=== PATIENT | male | born 1970 | race Caucasian/White ===

== ENCOUNTER 2017-10-14 18:41 | Inpatient (IN) | payer OTHER ==
[~2017-10-14] VITALS: Ht 172.7 cm; Wt 215.4 kg
[2017-10-14] MEDS: FUROSEMIDE 40 MG INJ IV STA ×2 (19:44→23:21)
[2017-10-14] MEDS ORDERED: NITROGLYCERIN (SL) 0.4 MG TAB SL PRN ×2 (20:00→21:30)
[2017-10-14 20:05] LABS: BASOPHIL # 0.1 10^3/ul (0.0-0.1); BASOPHILS % 0.5 % (0.0-2.0); EOSINOPHILS # 0.4 10^3/ul (0.0-0.5); EOSINOPHILS % 3.9 % (0.0-7.0); HEMATOCRIT 43.5 % (42.0-52.0); HEMOGLOBIN 13.2 g/dl (14.0-18.0); LYMPHOCYTES # 1.6 10^3/ul (0.8-2.9); LYMPHOCYTES % 17.4 % (15.0-51.0); MEAN CORPUSCULAR HEMOGLOBIN 24.7 pg (29.0-33.0); MEAN CORPUSCULAR HGB CONC 30.3 g/dl (32.0-37.0); MEAN CORPUSCULAR VOLUME 81.3 fl (82.0-101.0); MEAN PLATELET VOLUME 8.9 fl (7.4-10.4); MONOCYTE # 0.9 10^3/ul (0.3-0.9); MONOCYTES % 9.3 % (0.0-11.0); NEUTROPHIL # 6.4 10^3/ul (1.6-7.5); NEUTROPHILS % 67.8 % (39.0-77.0); PLATELET COUNT 334 10^3/UL (140-415); RED BLOOD COUNT 5.35 10^6/ul (4.70-6.10); RED CELL DISTRIBUTION WIDTH 19.6 % (11.5-14.5); WHITE BLOOD COUNT 9.4 10^3/ul (4.8-10.8)
[2017-10-14 20:19] LABS: ANION GAP 12 (8-16); BLOOD UREA NITROGEN 12 mg/dl (7-20); CALCIUM 8.8 mg/dl (8.4-10.2); CARBON DIOXIDE 33 mmol/L (21-31); CHLORIDE 100 mmol/L (97-110); CREATININE 0.96 mg/dl (0.61-1.24); GLUCOSE 153 mg/dl (70-220); POTASSIUM 3.9 mmol/L (3.5-5.1); SODIUM 141 mmol/L (135-144)
[2017-10-14 20:21] LABS: INR 1.04; PROTIME 13.6 Sec (12.2-14.2); PT RATIO 1.1
[2017-10-14 20:22] LABS: PARTIAL THROMBOPLASTIN TIME 34.3 Sec (25.0-35.0)
[2017-10-14 20:30] LABS: TROPONIN-I < 0.012 ng/ml (0.00-0.12)
[2017-10-14] MEDS: NITROGLYCERIN 2% 1 GM OINT PKT TD STA ×2 (20:30→23:21)
[2017-10-14] MEDS ORDERED: ACETAMINOPHEN 325 MG TAB PO PRN (21:00)
[2017-10-14] MEDS ORDERED: ONDANSETRON 4 MG INJ IV PRN (21:00)
--- NOTE | 2017-10-14 21:08 | RADRPT ---
PROCEDURE: XR Chest. CLINICAL INDICATION: Chest pain. TECHNIQUE: Single frontal chest x-ray. COMPARISON: None available. FINDINGS: The lungs volumes are diminished. There are compressive changes with vascular crowding and basilar atelectasis. No pneumothorax, pleural effusion or consolidation is noted. The cardiomediastinal si lhouette is unremarkable. The base of the heart is elevated due to low lung volumes. No acute os seous abnormality is noted. IMPRESSION: 1. Low lung volumes with compressive changes and basilar atelectasis. 2. Otherwise, no acute cardiopulmonary abnormality. RPTAT: HH .Josue Nunez MD, Date Time Electronically viewed and signed by .Josue Nunez MD, on 10/14/2017 21:08 .N/
[2017-10-14] MEDS ORDERED: NACL 0.9% 3 ML SYG IV SCH (21:30)
--- NOTE | 2017-10-14 22:07 | ERD ---
ER Documentation Chief Complaint Chief Complaint CP with SOB and dizziness started 1 ago, pt has hx of CT HPI Patient is a 47-year-old male with cardiac disease who presents with bilateral feet swelling. He went to his primary doctor at [facility] clinic who told him to go to the emergency department. He has shortness of breath. He had near syncope as well. Supposedly his oxygen was 86% in the office. He uses oxygen at home but not continuously. He admits to a cough. He has had chest pain. He said that this started a few weeks ago but is gotten worse. He lives alone. Upon review of old medical records this is the patient's first visit to the emergency department. ROS All systems reviewed and are negative except as per history of present illness. Allergies Allergies: Coded Allergies: No Known Allergy (Unverified , 10/14/17) PMhx/Soc Positive for coronary disease and obesity FmHx Family History: coronary disease Physical Exam Vitals Vital Signs Date Time Temp Pulse Resp B/P Pulse Ox O2 Delivery O2 Flow Rate FiO2 10/14/17 18:54 98.2 114 32 144/81 91 Physical Exam Const: Moderate distress Head: Atraumatic Eyes: Normal Conjunctiva ENT: Normal External Ears, Nose and Mouth. Neck: Full range of motion..~ No meningismus. Resp: Clear to auscultation bilaterally Cardio: Regular rate and rhythm, no murmurs Abd: Severe obesity Skin: Chronic skin changes to the lower extremities bilaterally Back: No midline or flank tenderness Ext: 2+ pitting edema bilateral lower extremities Neur: Awake and alert Psych: Normal Mood and Affect Result Diagram: 10/14/17195510/14/171955 Results 24 hrs Laboratory Tests Test 10/14/17 19:56 White Blood Count 9.410^3/ul Red Blood Count 5.3510^6/ul Hemoglobin 13.2g/dl Hematocrit 43.5% Mean Corpuscular Volume 81.3fl Mean Corpuscular Hemoglobin 24.7pg Mean Corpuscular Hemoglobin Concent 30.3g/dl Red Cell Distribution Width 19.6% Platelet Count 09075^3/UL Mean Platelet Volume 8.9fl Neutrophils % 67.8% Lymphocytes % 17.4% Monocytes % 9.3% Eosinophils % 3.9% Basophils % 0.5% Nucleated Red Blood Cells % 0.0/100WBC Neutrophils # 6.410^3/ul Lymphocytes # 1.610^3/ul Monocytes # 0.910^3/ul Eosinophils # 0.410^3/ul Basophils # 0.110^3/ul Nucleated Red Blood Cells # 0.010^3/ul Prothrombin Time 13.6Sec Prothrombin Time Ratio 1.1 INR International Normalized Ratio 1.04 Activated Partial Thromboplast Time 34.3Sec Sodium Level 141mmol/L Potassium Level 3.9mmol/L Chloride Level 100mmol/L Carbon Dioxide Level 33mmol/L Anion Gap 12 Blood Urea Nitrogen 12mg/dl Creatinine 0.96mg/dl Glucose Level 153mg/dl Calcium Level 8.8mg/dl Troponin I < 0.012ng/ml Current Medications Medications (Trade) Dose Ordered Sig/Jonas Route PRN Reason Start Time Stop Time Status Last Admin Dose Admin Aspirin (Aspirin) 162 mg ONCE STAT PO 10/14/17 19:44 10/14/17 19:45 DC Nitroglycerin (Nitroglycerin 2% Oint) 1 inch ONCE STAT TD 10/14/17 19:44 10/14/17 19:45 DC Nitroglycerin (Nitroglycerin (Sl Tab) 0.4 Mg) 1 tab Q5M UP TO 3 DOSES PRN SL CHEST PAIN 10/14/17 20:00 Furosemide (Lasix) 40 mg ONCE STAT IV 10/14/17 19:44 10/14/17 19:45 DC Ondansetron HCl (Zofran Inj) 4 mg ER BRIDGE PRN IV NAUSEA AND/OR VOMITING 10/14/17 21:00 10/15/17 20:59 Acetaminophen (Tylenol Tab) 650 mg ER BRIDGE PRN PO MILD PAIN/FEVER 10/14/17 21:00 10/15/17 20:59 IV Flush (NS 3 ml) 3 ml PER PROTOCOL IV 10/14/17 21:30 Ondansetron HCl (Zofran Inj) 4 mg Q6H PRN IV NAUSEA AND/OR VOMITING 10/14/17 21:30 Nitroglycerin (Nitroglycerin (Sl Tab) 0.4 Mg) 1 tab Q5M PRN SL CHEST PAIN 10/14/17 21:30 Acetaminophen (Tylenol Tab) 650 mg Q6H PRN PO PAIN LEVEL 1-3 OR FEVER 10/14/17 21:30 Procedures/MDM EKG read by me: Rate/Rhythm: Regular rate and rhythm at a rate of 76 Intervals: Normal Impression: No evidence of ischemia or arrhythmia PROCEDURE: XR Chest. CLINICAL INDICATION: Chest pain. TECHNIQUE: Single frontal chest x-ray. COMPARISON: None available. FINDINGS: The lungs volumes are diminished. There are compressive changes with vascular crowding and basilar atelectasis. No pneumothorax, pleural effusion or consolidation is noted. The cardiomediastinal silhouette is unremarkable. The base of the heart is elevated due to low lung volumes. No acute osseous abnormality is noted. IMPRESSION: 1. Low lung volumes with compressive changes and basilar atelectasis. 2. Otherwise, no acute cardiopulmonary abnormality. RPTAT: HH .Josue Nunez MD, MD Date Time Electronically viewed and signed by .Josue Nunez MD, on 10/14/2017 21: 08 Patient is a 47-year-old male with coronary disease and obesity who presents with chest pain and shortness of breath. My concern is for possible congestive heart failure and he was given aspirin, nitroglycerin, and Lasix. He feels better. He will be admitted to the panel team and I spoke with Dr. Avila who will admit him to a telemetry bed. He is requesting transfer to a facility that has bariatric beds is currently do not have bariatric beds. He is requesting that I call [facility]. We will place a call and I will ask if they are willing to except for patient preference but this is not a higher level of care transfer and if they refuse he will need to be admitted here at [facility]. If he does not want to be admitted here he could sign out AGAINST MEDICAL ADVICE. At this point I doubt pulmonary embolism, pneumonia, pneumothorax, or aortic dissection. Departure Diagnosis: Primary Impression: Chest pain Chest pain type: unspecified Qualified Code: R07.9 - Chest pain, unspecified type Additional Impression: Acute CHF Congestive heart failure type: unspecified congestive heart failure type Qualified Code: I50.9 - Acute congestive heart failure, unspecified congestive heart failure type Condition: MIRTHA Wan MD Oct 14, 2017 22:07
[2017-10-14] MEDS: ASPIRIN 81 MG TAB PO STA (23:21)
[2017-10-15] MEDS ORDERED: MET25 PO (01:09)
[2017-10-15] MEDS: ASPIRIN 81 MG TAB PO STA (02:00)
--- NOTE | 2017-10-15 04:55 | RADRPT ---
PROCEDURE: ULTRASOUND BILATERAL LOWER EXTREMITY VENOUS CLINICAL INDICATION: 47-year-old male with shortness of breath and lower extremity pain. TECHNIQUE: Multiple sonographic images of the bilateral lower extremity deep venous system was obt ained utilizing grayscale, color-flow, compressive sonography and doppler imaging with augmentation. The images were reviewed on a PACS workstation. COMPARISON: None. FINDINGS: The study was limited and nondiagnostic secondary to the patient's body habitus as well as calcified thickened skin making it difficult to penetrate and visualize the veins. There appears to be normal compressibility within the proximal right superficial femoral vein. The rest of the veins of the lo wer extremities bilaterally would not able to be interrogated. IMPRESSION: Markedly limited nondiagnostic examination secondary to patient's body habitus and difficulty penetr ating thickened calcified scan. There is normal compressibility within the right proximal superficia l femoral vein however the last of the venous system within the lower extremities were not able to b e evaluated making the study nondiagnostic. .Darrel Restrepo MD, MD Date Time Electronically viewed and signed by .Darrel Restrepo MD, on 10/15/2017 04:55 .M/
[2017-10-15 05:59] LABS: BASOPHIL # 0.1 10^3/ul (0.0-0.1); BASOPHILS % 0.6 % (0.0-2.0); EOSINOPHILS # 0.4 10^3/ul (0.0-0.5); EOSINOPHILS % 4.6 % (0.0-7.0); HEMATOCRIT 44.4 % (42.0-52.0); HEMOGLOBIN 13.4 g/dl (14.0-18.0); LYMPHOCYTES # 1.9 10^3/ul (0.8-2.9); LYMPHOCYTES % 21.4 % (15.0-51.0); MEAN CORPUSCULAR HEMOGLOBIN 24.9 pg (29.0-33.0); MEAN CORPUSCULAR HGB CONC 30.2 g/dl (32.0-37.0); MEAN CORPUSCULAR VOLUME 82.4 fl (82.0-101.0); MEAN PLATELET VOLUME 9.7 fl (7.4-10.4); MONOCYTES % 10.9 % (0.0-11.0); NEUTROPHIL # 5.4 10^3/ul (1.6-7.5); NEUTROPHILS % 61.9 % (39.0-77.0); PLATELET COUNT 348 10^3/UL (140-415); RED BLOOD COUNT 5.39 10^6/ul (4.70-6.10); RED CELL DISTRIBUTION WIDTH 20.5 % (11.5-14.5); WHITE BLOOD COUNT 8.7 10^3/ul (4.8-10.8)
[2017-10-15 06:29] LABS: CREATINE KINASE 62 IU/L (23-200)
[2017-10-15 06:36] LABS: ALBUMIN/GLOBULIN RATIO 1.05; BILIRUBIN,INDIRECT 0.3 mg/dl (0-1.1); BILIRUBIN,TOTAL 0.3 mg/dl (0.2-1.3); CALCIUM 9.1 mg/dl (8.4-10.2); CHOL/HDL RATIO 4.8 RATIO; CREATININE 0.79 mg/dl (0.61-1.24); MAGNESIUM 1.7 mg/dl (1.7-2.5); POTASSIUM 4.8 mmol/L (3.5-5.1); TOTAL PROTEIN 7.8 g/dl (6.1-8.1)
[2017-10-15 06:47] LABS: CK-MB 1.53 ng/ml (0.0-2.4); TROPONIN-I < 0.012 ng/ml (0.00-0.12)
[2017-10-15 08:22] LABS: THYROID STIMULATING HORMONE 1.23 MIU/L (0.465-4.680)
--- NOTE | 2017-10-15 09:13 | HP ---
Date/Time of Note Date/Time of Note DATE: 10/15/17 TIME: 09:07 Assessment/Plan VTE Prophylaxis VTE Prophylaxis Intervention: LMWH, SCD's Lines/Catheters IV Catheter Type (from [facility] Saline Lock Assessment/Plan Chief Complaint/Hosp Course This is a 47-year-old male being admitted to the telemetry floor for: #1 SOB: respiratory illness vs PE vs cardiac etiology. Patient is afebrile and normal white blood cell count. Will order VQ scan to workup for PE as patient habitus was too large to be fit into the CAT scan seen. BNP is 47, nonetheless will obtain cardiac enzymes x 3 and echo. Chest x-ray does not show any acute process. Will obtain a pulm consult. Stat dopplers of lower extremity. Will start the patient on Lovenox for DVT prophylaxis and try to assess to see the patient has underlying PE therefore would need switching to therapeutic doses. #2 Morbid obesity: check tsh, lipids, a1c. #3 Bilateral lower extremity swelling: stat venous bilateral dopplers, check echo. #4 Obstructive sleep apnea: This may be contributing partially to the patient's lower extremity edema as well. Confirm whether patient is on home CPAP or BiPAP and find out his settings. #5 DVT GI prophylaxis: Lovenox, no GI prophylaxis indicated Further treatment strategy will be implemented as per the clinical course Problems: HPI/ROS Admit Date/Time Admit Date/Time Hx of Present Illness cc: sob Patient is a 47-year-old male with cardiac disease who presents with bilateral feet swelling. He went to his primary doctor at [facility] clinic who told him to go to the emergency department. He has shortness of breath. He had near syncope as well. Supposedly his oxygen was 86% in the office. He uses oxygen at home but not continuously. He admits to a cough. He has had chest pain. He said that this started a few weeks ago but is gotten worse. He lives alone. Upon review of old medical records this is the patient's first visit to the emergency department. allergies: nkda meds: none ROS Const: As per HPI Eyes : No pain discharge or redness or change in visual acuity ENT: No pain, sore throat, congestion, congestion, dysphagia or discharge Respiratory: As per HPI Cardiovascular: No chest pain, palpitation, PND, or edema GI : no change in appetite, abdominal pain, nausea, vomiting, diarrhea, constipation, or change in the color his stool Genitourinary: No dysuria, hematuria, flank pain , discharge or CVA tenderness Musculoskeletal: No joint pain, back pain, neck pain, restricted range of motion in neck or joints Skin: No rash, bruising or hives Neuro: No headache, dizziness, syncope, seizure, focal weakness Endocrine: No polyuria, polydipsia, temperature intolerance Psych: No hallucination, depression, anxiety or suicidal ideation PMH/Family/Social Past Medical History sleep apnea, psoriasis Past Surgical History Past Surgical Hx: no surgical history Family History Significant Family History: no pertinent family hx Social History Alcohol Use: none Smoking Status: Never smoker Drug Use: marijuana Exam/Review of Systems Vital Signs Vitals Vital Signs Date Time Temp Pulse Resp B/P Pulse Ox O2 Delivery O2 Flow Rate FiO2 10/15/17 05:45 97 4.0 10/15/17 05:26 110 26 129/93 Room Air 10/14/17 18:54 98.2 Exam Exam General: This is a morbidly obese male who was sitting on a motorized scooter, he is somnolent but easily arousable HEENT: Atraumatic, normocephalic. The pupils are equal, round and reactive. Extraocular motor are intact Neck: Supple with full range of motion. No rigidity or meningismus Chest: Nontender Lungs: Lungs clear to auscultation bilaterally, cough nonproductive during exam Heart: Normal S1-S2, Regular rhythm and rate. No murmur, S3, or S4 Abdomen: Soft , nontender, nondistended , bowel sounds are present. No guarding no rebound tenderness , No masses or organomegaly. No costovertebral temporal angle mass Extremities: Large bilateral lower extremities, bilateral lower extremity 1+ edema at the level of the feet Neurologic: Normal mental status, speech normal, cranial nerves II through XII are intact, motor and sensory are intact, no focal weakness Additional Comments PROCEDURE: XR Chest. CLINICAL INDICATION: Chest pain. TECHNIQUE: Single frontal chest x-ray. COMPARISON: None available. FINDINGS: The lungs volumes are diminished. There are compressive changes with vascular crowding and basilar atelectasis. No pneumothorax, pleural effusion or consolidation is noted. The cardiomediastinal silhouette is unremarkable. The base of the heart is elevated due to low lung volumes. No acute osseous abnormality is noted. IMPRESSION: 1. Low lung volumes with compressive changes and basilar atelectasis. 2. Otherwise, no acute cardiopulmonary abnormality. RPTAT: HH .Josue Nunez MD, Date Time Electronically viewed and signed by .Josue Nunez MD, on 10/14/2017 21: 08 .N/ CC: MIRTHA DOMINGUEZ MD EKG read by me: Rate/Rhythm: Regular rate and rhythm at a rate of 76 Intervals: Normal Impression: No evidence of ischemia or arrhythmia Above as per ED physician documentation Labs Result Diagram: 10/15/17 0524 10/15/17 0500 Medications Medications Current Medications Ondansetron HCl (Zofran Inj) 4 mg Q6H PRN IV NAUSEA AND/OR VOMITING; Start at 21:30 Nitroglycerin (Nitroglycerin (Sl Tab) 0.4 Mg) 1 tab Q5M PRN SL CHEST PAIN; Start 10/14/17 at 21:30 Acetaminophen (Tylenol Tab) 650 mg Q6H PRN PO PAIN LEVEL 1-3 OR FEVER; Start 10/14/17 at 21:30 LORENA JONES Oct 15, 2017 09:13
[2017-10-15] MEDS ORDERED: ENOXAPARIN 40 MG/0.4 ML SYG SC SCH (09:30)
[2017-10-15 09:40] LABS: CREATINE KINASE 51 IU/L (23-200)
[2017-10-15 09:53] LABS: CK-MB 1.37 ng/ml (0.0-2.4); TROPONIN-I < 0.012 ng/ml (0.00-0.12)
[2017-10-15] MEDS ORDERED: morphine 2 MG INJ IV ONE (10:30)
[2017-10-15 11:18] LABS: AADO2 Arterial 28.1 mmHg (7.0-24.0); Allen Test ACCEPTAB; Arterial Base Excess 6.9 mmol/L (-3.0-3); Arterial COHb 1.3 % (0.0-3.0); Arterial Fraction of Oxyhgb 89.2 % (93.0-99.0); Arterial HCO3 32.9 mmol/L (22.0-26.0); Arterial MetHb 0.1 % (0.0-1.5); Arterial Total Hemglobin 14.5 g/dl (12.0-18.0); MODE ROOM AIR
[2017-10-15 12:31] LABS: D-DIMER 702.36 ng/ml (<460)
--- NOTE | 2017-10-15 14:15 | PN ---
Date/Time of Note Date/Time of Note DATE: 10/15/17 TIME: 14:06 Assessment/Plan VTE Prophylaxis VTE Prophylaxis Intervention: SCD's Lines/Catheters IV Catheter Type (from Nrsg): Saline Lock Assessment/Plan Assessment/Plan 47 yo M with morbid obesity (BMI ~80) here with c/o 3 weeks of SOB. Etio unclear. BNP normal which makes CHF unlikely. TTE ordered. Dimer elevated concerning for possible VTE however patient is too large for the diagnostic imaging modalities at this facility. Pt largely wheelchairbound which increases risk of blood clots. dw pulm sap basis consultant at [facility] -will start empiric anticoagulation spoke with pharmacist, based on her review of the literature she is concerned about the risk of decreased efficacy of NOACs given pt's super morbid obesity. Instead she advised LMWH bridging with warfarin. LMWH weight based dosing started - consult for coumadin clinic -BiPap as patient certainly has JANA and likely [facility] wound care consult for LEs will contact PCP tomorrow Subjective 24 Hr Interval Summary Free Text/Dictation Pt frustrated this morning Exam/Review of Systems Vital Signs Vitals Vital Signs Date Time Temp Pulse Resp B/P Pulse Ox O2 Delivery O2 Flow Rate FiO2 10/15/17 13:03 98.3 80 16 158/82 93 Room Air 10/15/17 05:45 4.0 Exam nad no mrg lungs with decreased breath sounds at bl bases abd obese bl dystrophic legs LE doppler nondiagnostic ddimer elevated, BNP nl ABG consistent with chronic respiratory alkalosis Results Result Diagram: 10/15/17 0524 10/15/17 0500 Results 24 hrs Laboratory Tests Test 10/14/17 19:56 10/14/17 20:00 10/15/17 05:00 10/15/17 05:24 White Blood Count 9.4 8.7 Red Blood Count 5.35 5.39 Hemoglobin 13.2 L 13.4 L Hematocrit 43.5 44.4 Mean Corpuscular Volume 81.3 L 82.4 Mean Corpuscular Hemoglobin 24.7 L 24.9 L Mean Corpuscular Hemoglobin Concent 30.3 L 30.2 L Red Cell Distribution Width 19.6 H 20.5 H Platelet Count 334 348 Mean Platelet Volume 8.9 9.7 Neutrophils % 67.8 61.9 Lymphocytes % 17.4 21.4 Monocytes % 9.3 10.9 Eosinophils % 3.9 4.6 Basophils % 0.5 0.6 Nucleated Red Blood Cells % 0.0 0.0 Neutrophils # 6.4 5.4 Lymphocytes # 1.6 1.9 Monocytes # 0.9 1.0 H Eosinophils # 0.4 0.4 Basophils # 0.1 0.1 Nucleated Red Blood Cells # 0.0 0.0 Prothrombin Time 13.6 Prothrombin Time Ratio 1.1 INR International Normalized Ratio 1.04 Activated Partial Thromboplast Time 34.3 Sodium Level 141 142 Potassium Level 3.9 4.8 Chloride Level 100 99 Carbon Dioxide Level 33 H 33 H Anion Gap 12 15 Blood Urea Nitrogen 12 13 Creatinine 0.96 0.79 Glucose Level 153 112 # Calcium Level 8.8 9.1 Troponin I < 0.012 < 0.012 B-Type Natriuretic Peptide 47 Magnesium Level 1.7 Total Bilirubin 0.3 Direct Bilirubin 0.00 Indirect Bilirubin 0.3 Aspartate Amino Transf (AST/SGOT) 21 Alanine Aminotransferase (ALT/SGPT) 31 Alkaline Phosphatase 60 Total Protein 7.8 Albumin 4.0 Globulin 3.80 H Albumin/Globulin Ratio 1.05 Triglycerides Level 56 Cholesterol Level 192 LDL Cholesterol, Calculated 141 HDL Cholesterol 40 Cholesterol/HDL Ratio 4.8 Thyroid Stimulating Hormone (TSH) 1.230 Hemoglobin A1c 6.9 H Creatine Kinase 62 Creatine Kinase Index 2.5 Creatinine Kinase MB (Mass) 1.53 Test 10/15/17 08:56 10/15/17 10:30 10/15/17 11:46 Creatine Kinase 51 Creatine Kinase Index 2.7 Creatinine Kinase MB (Mass) 1.37 Troponin I < 0.012 Blood Gas Specimen Source Blood arterial Arterial Blood Date Drawn 10/15/2017 11:10:16 AM Arterial Blood pH (Temp corrected) 7.417 Arterial Blood pCO2 (Temp correct) 52.3 H Arterial Blood pO2 (Temp corrected) 59.0 L Arterial Blood HCO3 32.9 H Arterial Blood Base Excess 6.9 H Arterial Blood Oxygen Saturation 90.5 L Danyel Test ACCEPTAB Arterial Blood Gas Puncture Site Right Radial Arterial Blood Carboxyhemoglobin 1.3 Arterial Blood Methemoglobin 0.1 Blood Gas A-a O2 Differential 28.1 H Oxyhemoglobin Percent 89.2 L Total Hemoglobin 14.5 Blood Gas Temperature 37.0 Blood Gas Modality ROOM AIR FiO2 21.0 Blood Gas Notified Whom RT Blood Gas Notified Time 10/15/2017 11:17:40 AM D-Dimer 702.36 H D-Dimer Comment Medications Medications Current Medications Ondansetron HCl (Zofran Inj) 4 mg Q6H PRN IV NAUSEA AND/OR VOMITING; Start at 21:30 Nitroglycerin (Nitroglycerin (Sl Tab) 0.4 Mg) 1 tab Q5M PRN SL CHEST PAIN; Start 10/14/17 at 21:30 Acetaminophen (Tylenol Tab) 650 mg Q6H PRN PO PAIN LEVEL 1-3 OR FEVER; Start 10/14/17 at 21:30 Enoxaparin Sodium (Lovenox) 40 mg DAILY SC Last administered on 10/15/17t 11: 12; Admin Dose 40 MG; Start 10/15/17 at 09:30 LEXII LADD MD Oct 15, 2017 14:15
[2017-10-15] MEDS ORDERED: ENOXAPARIN 100 MG/ML SYG SC SCH (16:30)
[2017-10-15] MEDS: WARFARIN 7.5 MG TAB PO SCH (17:00)
[2017-10-15 18:34] VITALS: TEMP 98.3
[2017-10-15 19:52] VITALS: BMI 82.1
[2017-10-15 19:59] VITALS: BP 147/76; RESP 20
[2017-10-15] MEDS: ALBUTEROL 0.083% (NEB) 2.5 MG/3 ML AMP HHN PRN (20:57)
[2017-10-16] VITALS (12 sets, daily range): BP systolic 104–142; BP diastolic 59–75; PULSE 100–107; RESP 17–21
[2017-10-16] MEDS: morphine 2 MG INJ IV PRN ×4 (00:21→21:15)
[2017-10-16] MEDS: DIPHENHYDRAMINE 50 MG INJ IV ONE ×2 (00:51→01:00)
[2017-10-16] MEDS: ENOXAPARIN 100 MG/ML SYG SC SCH ×3 (00:54→21:07)
[2017-10-16] MEDS: EUCERIN 113 GM CR TOP SCH ×2 (09:00→21:03)
[2017-10-16] MEDS ORDERED: DIPHENHYDRAMINE 50 MG CAP PO PRN (09:00)
[2017-10-16 09:36] LABS: INR 1.03; PROTIME 13.5 Sec (12.2-14.2); PT RATIO 1.1
--- NOTE | 2017-10-16 12:03 | PN ---
Date/Time of Note Date/Time of Note DATE: 10/16/17 TIME: 11:46 Assessment/Plan VTE Prophylaxis VTE Prophylaxis Intervention: SCD's Lines/Catheters IV Catheter Type (from Nrsg): Saline Lock Urinary Cath still in place: No Assessment/Plan Assessment/Plan 47 yo M with morbid obesity (BMI ~80) here with c/o 3 weeks of SOB. Etio unclear. BNP normal which makes CHF unlikely. TTE ordered. Dimer elevated concerning for possible VTE however patient is too large for the diagnostic imaging modalities at this facility. Pt largely wheelchairbound which increases risk of blood clots. dw pulm executive talent acquisition consultant at [facility] as well as PCP -cont empiric anticoagulation with LMWH bridge to coumadin -CM consult for Coumadin clinic -BiPap qHS -wound care consult for LEs placed yesterday -CM consult to aid with discharge planning -DM2: a1c 6.9--> SSI -psoriasis: cont home topical agents Subjective 24 Hr Interval Summary Free Text/Dictation Pt very focused on trying to get into some sort of medical weight loss residential program? after discharge. I called PCP office, p [phone] Per chart at their clinic, pt's PMHx includes morbid obesity, JANA, DM, psoriasis. Pt with family hx MS, no personal hx of that disease Exam/Review of Systems Vital Signs Vitals Vital Signs Date Time Temp Pulse Resp B/P Pulse Ox O2 Delivery O2 Flow Rate FiO2 10/16/17 10:13 4.0 10/16/17 05:24 98.0 85 17 129/63 89 10/16/17 04:51 31 10/15/17 18:34 Room Air Intake and Output 10/15/17 10/15/17 10/16/17 15:00 23:00 07:00 Intake Total 200 ml Output Total 700 ml Balance -500 ml Exam still morbidly obese distant heart sounds distant lung sounds legs unchanged chronic stasis a1c 6.9 Results Result Diagram: 10/15/17 0524 10/15/17 0500 Results 24 hrs Laboratory Tests Test 10/16/17 08:33 Prothrombin Time 13.5 Prothrombin Time Ratio 1.1 INR International Normalized Ratio 1.03 Medications Medications Current Medications Ondansetron HCl (Zofran Inj) 4 mg Q6H PRN IV NAUSEA AND/OR VOMITING; Start at 21:30 Nitroglycerin (Nitroglycerin (Sl Tab) 0.4 Mg) 1 tab Q5M PRN SL CHEST PAIN; Start 10/14/17 at 21:30 Acetaminophen (Tylenol Tab) 650 mg Q6H PRN PO PAIN LEVEL 1-3 OR FEVER; Start 10/14/17 at 21:30 Warfarin Sodium (Coumadin) 7.5 mg DAILY@17 PO ; Start 10/15/17 at 17:00 Enoxaparin Sodium (Lovenox) 245 mg Q12 SC Last administered on 10/16/17 08:23 ; Admin Dose 245 MG; Start 10/16/17 at 01:00 Morphine Sulfate (morphine) 2 mg Q4H PRN IV PAIN LEVEL 7-10 Last administered on 10/16/17 07:18; Admin Dose 2 MG; Start 10/16/17 at 00:00 Multi-Ingredient Ointment (Eucerin Cream) 1 applic BID TOP Last administered on 10/16/17 09:00; Admin Dose 1 APPLIC; Start 10/16/17 at 09:00 Diphenhydramine HCl (Benadryl) 50 mg Q4H PRN PO ITCHING Last administered on 10:07; Admin Dose 50 MG; Start 10/16/17 at 09:00 LEXII LADD MD Oct 16, 2017 11:56
[2017-10-16] MEDS: TRIAMCINOLONE ACET 0.1% 15 GM OINT TOP SCH ×2 (14:00→17:12)
[2017-10-16] MEDS: WARFARIN 7.5 MG TAB PO SCH (17:11)
--- NOTE | 2017-10-16 17:52 | RADRPT ---
Echocardiogram Report Patient Name: CLIFTON MANDUJANO Gender: Male Date: 1970 Study Date: 16-Oct-2017 Classification Analyst: Erum [facility] Location: [address] Ref. Physician: LORENA JONES Quality: Technically Difficult Study Procedures: Transthoracic echocardiogram with complete 2D, M-Mode, and doppler examination. Indications: Hypoxia. 2D/M Mode Doppler Measurement Value Normal Ranges Measurement Value Normal Ranges LVIDd 2D 3.8 3.5 - 5.6 cm GIORGI Vmax 1.8 cm2 LVIDs 2D 2.9 2.1 - 4.1 cm GIORGI VTI 2.0 cm2 FS 2D 22.6 % AV Mean Luan 1.8 m/sec LVPWd 2D 1.6 0.6 - 1.1 cm AV Mean PG 16.0 mmHg IVSd 2D 1.6 0.6 - 1.1 cm AV Peak Luan 2.6 m/sec IVS/LVPW 2D 1.0 AV Peak PG 28.0 mmHg AoR Diam 2D 2.7 2.0 - 3.7 cm AV VTI 45.9 cm LA/Ao 2D 2 0 - 1 LVOT Mean Luan 1.1 m/sec EDV 2D 53.2 cm3 LVOT Mean PG 5.0 mmHg ESV 2D 24.6 cm3 LVOT Peak Luan 1.4 m/sec LA Dimen 2D 4.2 2.3 - 4.0 cm LVOT Peak PG 8.0 mmHg LVOT Diam 2.1 cm LVOT VTI 26.1 cm LVOT Area 3.5 cm2 MV E Peak Luan 0.6 m/sec MV A Peak Luan 0.6 m/sec MV E/A 1.1 MV Decel Time 120 msec MV E/A 1.1 Findings Left Ventricle: Normal left ventricular systolic function. Normal left ventricular cavity size. Moderate concentric left ventricular hypertrophy. Ejection fraction is visually estimated at 55 %. Abnormal Diastolic Function. Right Ventricle: Normal right ventricular size. Normal right ventricular systolic function. Left Atrium: There is mild enlargement of left atrium. Right Atrium: The right atrium is normal in size. Mitral Valve: Mild mitral leaflet calcification. Mild mitral annular calcification. Trace mitral regurgitation. Aortic Valve: No significant aortic stenosis or insufficiency. Aortic sclerosis without stenosis. Tricuspid Valve: Normal appearance of the tricuspid valve. Unable to obtain RVSP due to minimal presence of tricuspid regurgitation. There is trace tricuspid regurgitation. Pulmonic Valve: Pulmonic valve not well visualized. There is trace pulmonic regurgitation. Pericardium: Normal pericardium with no significant pericardial effusion. Aorta: Normal aortic root. IVC: Dilated IVC without respiratory collapse consistent with elevated right atrial pressure. Conclusions 1.Normal left ventricular systolic function. Normal left ventricular cavity size. Moderate concentric left ventricular hypertrophy. Ejection fraction is visually estimated at 55 %. Abnormal Diastolic Function. 2.There is mild enlargement of left atrium. 3.Mild mitral leaflet calcification. Mild mitral annular calcification. Trace mitral regurgitation. 4.No significant aortic stenosis or insufficiency. Aortic sclerosis without stenosis. 5.Normal appearance of the tricuspid valve. Unable to obtain RVSP due to minimal presence of tricuspid regurgitation. There is trace tricuspid regurgitation. 6.Dilated IVC without respiratory collapse consistent with elevated right atrial pressure. Electronically Signed By: Aidan Stinson 16-Oct-2017 17:52:10 -0800 Patient Name: CLIFTON MANDUJANO Study Date: 16-Oct-2017 [id number]
[2017-10-16] MEDS: ALBUTEROL 0.083% (NEB) 2.5 MG/3 ML AMP HHN PRN (23:12)
[2017-10-17] VITALS (45 sets, daily range): BP systolic 93–155; BP diastolic 39–101; PULSE 73–120; RESP 18–23
[2017-10-17] MEDS: morphine 2 MG INJ IV PRN (01:54)
[2017-10-17] MEDS: ACETAMINOPHEN 325 MG TAB PO PRN (01:54)
[2017-10-17] MEDS: ONDANSETRON 4 MG INJ IV PRN (03:01)
[2017-10-17 05:27] LABS: AADO2 Arterial 74.5 mmHg (7.0-24.0); Allen Test ACCEPTAB; Arterial Base Excess 5.7 mmol/L (-3.0-3); Arterial COHb 1.2 % (0.0-3.0); Arterial Fraction of Oxyhgb 87.1 % (93.0-99.0); Arterial HCO3 37.6 mmol/L (22.0-26.0); Arterial MetHb 0.1 % (0.0-1.5); Arterial Total Hemglobin 14.1 g/dl (12.0-18.0); MODE NASAL CANNULA
[2017-10-17] MEDS ORDERED: LORAZEPAM 2 MG INJ IV ONE (06:00)
[2017-10-17] MEDS ORDERED: ROCURONIUM 50 MG INJ ONE (07:00)
[2017-10-17] MEDS ORDERED: LIDOCAINE 100 MG SYRINGE ONE (07:44)
[2017-10-17] MEDS ORDERED: LIDOCAINE 2% JELLY 5 ML ONE (07:45)
[2017-10-17 07:48] LABS: INR 1.1; PROTIME 14.2 Sec (12.2-14.2); PT RATIO 1.1
--- NOTE | 2017-10-17 08:03 | QN ---
Documentation Comment I was called out of the emergency department to room 531 for an intubation of the patient that was lethargic and had a PCO2 of [address] Avila called me from the ER for intubation. The patient on BiPAP therapy when I arrived. I was concerned about a difficult intubation as the patient is 245 kg. The patient was also in the chair at that time and so positioning was limited. The patient was moved by the telemetry team to the bed and I had Endy our nursing supervisor diagnostic call anesthesia stat. Dr. More came to the bedside to assist with intubation. The decision was made to attempt an awake intubation given the patient's size and concern for paralyzing this patient in case endotracheal intubation was unable to be performed. Without sedation Dr. More was able to intubate without too much difficulty. The patient's saturation remained above 90% for the entire intubation. HPI: The patient has been admitted for the past 2 days and has become more lethargic. ABG worsened over the past 2 days and his PCO2 is gone from 50 to 99. The decision was made by Dr. Avila the panel to intubate the patient. Physical exam: The patient is receiving BiPAP therapy in the chair at this time. He is not responding to commands and is altered. He is breathing on his own at this time. MIRTHA DOMINGUEZ MD Oct 17, 2017 08:03
[2017-10-17] MEDS: PROPOFOL 100 ML IV SCH ×9 (08:39→22:24)
--- NOTE | 2017-10-17 08:48 | RADRPT ---
PROCEDURE: Chest radiograph CLINICAL INDICATION: Shortness of breath. Rapid response. COMPARISON: Radiograph 10/14/2017. TECHNIQUE: Single frontal chest radiograph. FINDINGS: The radiograph is underpenetrated. The new endotracheal tube terminates about 3.3 cm above the kathe. Bilateral alveolar opacities within the upper, mid, and lower lungs, likely pulmonary edema rather t chapman multifocal pneumonia given the rapid development Both costophrenic sulci and peripheral diaphragms are obscured which may be due to technique or smal l pleural effusions. IMPRESSION: 1. New bilateral alveolar opacities in the upper and lower lobes, most consistent with pulmonary jose ma. 2. Endotracheal tube terminates in expected position. RPTAT: PP Physician Maria C Date Time Electronically viewed and signed by Kendell Palomino Physician on 10/17/2017 08:48 LG/
--- NOTE | 2017-10-17 09:11 | OPPN ---
Date/Time of Note Date/Time of Note DATE: 10/17/17 TIME: 09:04 Event Note Patient is a 47-year-old male with cardiac disease who presents with bilateral feet swelling. He went to his primary doctor at [facility] clinic who told him to go to the emergency department. He has shortness of breath. He had near syncope as well. Supposedly his oxygen was 86% in the office. He uses oxygen at home but not continuously. He admits to a cough. He has had chest pain. He said that this started a few weeks ago but is gotten worse. He lives alone. Upon review of old medical records this is the patient's first visit to the emergency department. Morbidly Obese 47 yr old male coded on the floor 5th floor, consequently Anesthesia was called for airway management. Patient was found sitting and somnolent with respiratory distress, patient was transferred to Bed, he was manually ventilated and assisted with Ambubag initially with 100% O2 then with no sedation awake intubation was attempted by using Glidoscope with blade#4 ETT # 7.5 was insented X1 ETT CO2 +, BBSE, tapped at 25cm lip level, consequently patient was paralysed with Rocuroniu, and placed on mechanical ventilation and transferred to ICU. ELIGIO PRIETO MD Oct 17, 2017 09:10
[2017-10-17 09:22] LABS: Allen Test ACCEPTAB; Arterial Base Excess 5.3 mmol/L (-3.0-3); Arterial COHb 0.9 % (0.0-3.0); Arterial Fraction of Oxyhgb 96.8 % (93.0-99.0); Arterial MetHb 0.2 % (0.0-1.5); MODE VENT - AC
[2017-10-17] MEDS: TRIAMCINOLONE ACET 0.1% 15 GM OINT TOP SCH ×2 (09:54→21:10)
[2017-10-17] MEDS: EUCERIN 113 GM CR TOP SCH ×2 (09:56→21:10)
[2017-10-17] MEDS: ENOXAPARIN 100 MG/ML SYG SC SCH ×2 (09:58→21:11)
[2017-10-17 11:38] LABS: AADO2 Arterial 449.9 mmHg (7.0-24.0); Allen Test ACCEPTAB; Arterial Base Excess 7.8 mmol/L (-3.0-3); Arterial COHb 0.5 % (0.0-3.0); Arterial Fraction of Oxyhgb 98.4 % (93.0-99.0); Arterial HCO3 36.3 mmol/L (22.0-26.0); Arterial MetHb 0.2 % (0.0-1.5); Arterial Total Hemglobin 13.4 g/dl (12.0-18.0); MODE VENT - AC
--- NOTE | 2017-10-17 12:23 | PN ---
Date/Time of Note Date/Time of Note DATE: 10/17/17 TIME: 12:08 Assessment/Plan VTE Prophylaxis VTE Prophylaxis Intervention: SCD's Lines/Catheters IV Catheter Type (from Nrsg): Mid Line Urinary Cath still in place: Yes Reason Cath still needed: other (indicate) (critically ill) Assessment/Plan Assessment/Plan 47 yo M with super morbid obesity, DM presented to [facility] intubated overnight for airway protection in setting of CO2 narcosis and pulmonary edema. Suspect pulmonary edema noncardiogenic in origin given TTE from within past 48 hours with just DD, already ruled out for acute GA during this hospital stay. BNP on admission normal. P/F ratio consistent with mild ARDS with P/F ~240. PLAN -repeat BNP -low TV ventilatory management, defer to pulm though pt currently at TV 600mL which corresponds to ~7.5 mL/kg -no evidence of pneumonia, unlikely aspiration. hold abx at this time -defer lasix pending repeat BNP ?possible PE: cont LMWH and warfarin bridge LE wounds: await wound care eval DM2: cont SSI critical care time: 30 minutes Subjective 24 Hr Interval Summary Free Text/Dictation Overnight events reviewed. Appears that after persistently refusing to wear BiPap overnight, pt with progressive somnolence 2/2 CO2 narcosis to the point that he required intubation for airway protection Exam/Review of Systems Vital Signs Vitals Vital Signs Date Time Temp Pulse Resp B/P Pulse Ox O2 Delivery O2 Flow Rate FiO2 10/17/17 11:19 88 22 94 100 10/17/17 10:45 123/57 Mechanical Ventilator 10/17/17 08:25 98.3 10/17/17 07:30 15.0 Intake and Output 10/16/17 10/16/17 10/17/17 15:00 23:00 07:00 Intake Total 1600 ml 1000 ml Output Total 1400 ml 800 ml Balance 200 ml 200 ml Exam intubated, moving extremities distant heart sounds distant lung sounds obese painted toenails serial ABGs reviewed. Pre intubation ABGs with marked respiratory acidosis CXR with pulmonary edema Results Result Diagram: 10/15/17 0524 10/15/17 0500 Results 24 hrs Laboratory Tests Test 10/17/17 03:30 10/17/17 07:09 10/17/17 09:00 10/17/17 11:00 Blood Gas Specimen Source Blood arterial Blood arterial Blood arterial Arterial Blood Date Drawn 10/17/2017 5:13:15 AM 10/17/2017 9:10:36 AM 10/17/2017 11:30:43 AM Arterial Blood pH (Temp corrected) 7.197 *L 7.196 *L 7.331 L Arterial Blood pCO2 (Temp correct) 99.0 *H 97.8 *H 70.2 H Arterial Blood pO2 (Temp corrected) 67.3 L 130.2 H 192.9 H Arterial Blood HCO3 37.6 H 37.0 H 36.3 H Arterial Blood Base Excess 5.7 H 5.3 H 7.8 H Arterial Blood Oxygen Saturation 88.2 L 97.9 99.1 H Danyel Test ACCEPTAB ACCEPTAB ACCEPTAB Arterial Blood Gas Puncture Site Right Radial Left Radial Right Radial Arterial Blood Carboxyhemoglobin 1.2 0.9 0.5 Arterial Blood Methemoglobin 0.1 0.2 0.2 Blood Gas A-a O2 Differential 74.5 H 485.0 H 449.9 H Oxyhemoglobin Percent 87.1 L 96.8 98.4 Total Hemoglobin 14.1 14.0 13.4 Blood Gas Temperature 37.0 37.0 37.0 Blood Gas Actual Respiration Rate 20 22 22 Blood Gas Modality NASAL CANNULA VENT - AC VENT - AC FiO2 36.0 100.0 100.0 Blood Gas Critical Value Read Back Matthew VOGEL R.N. RN Y MRAY Blood Gas Notified Whom [facility] Blood Gas Notified Time 10/17/2017 5:27:49 AM 10/17/2017 9:22:00 AM 10/17/2017 11:38:38 AM Prothrombin Time 14.2 Prothrombin Time Ratio 1.1 INR International Normalized Ratio 1.10 Blood Gas Respiration Rate 22.0 22.0 Blood Gas Tidal Volume 600.0 600.0 Blood Gas Low PEEP Setting 5.0 5.0 Medications Medications Current Medications Ondansetron HCl (Zofran Inj) 4 mg Q6H PRN IV NAUSEA AND/OR VOMITING Last administered on 10/17/17t 03:01; Admin Dose 4 MG; Start 10/14/17 at 21:30 Nitroglycerin (Nitroglycerin (Sl Tab) 0.4 Mg) 1 tab Q5M PRN SL CHEST PAIN; Start 10/14/17 at 21:30 Acetaminophen (Tylenol Tab) 650 mg Q6H PRN PO PAIN LEVEL 1-3 OR FEVER Last administered on 10/17/17 01:54; Admin Dose 650 MG; Start 10/14/17 at 21:30 Warfarin Sodium (Coumadin) 7.5 mg DAILY@17 PO Last administered on 10/16/17 17:11; Admin Dose 7.5 MG; Start 10/15/17 at 17:00 Enoxaparin Sodium (Lovenox) 245 mg Q12 SC Last administered on 10/17/17 09:58 ; Admin Dose 245 MG; Start 10/16/17 at 01:00 Morphine Sulfate (morphine) 2 mg Q4H PRN IV PAIN LEVEL 7-10 Last administered on 10/17/17 01:54; Admin Dose 2 MG; Start 10/16/17 at 00:00 Multi-Ingredient Ointment (Eucerin Cream) 1 applic BID TOP Last administered on 10/17/17 09:56; Admin Dose 1 APPLIC; Start 10/16/17 at 09:00 Diphenhydramine HCl (Benadryl) 50 mg Q4H PRN PO ITCHING Last administered on 10:07; Admin Dose 50 MG; Start 10/16/17 at 09:00 Triamcinolone Acetonide 1 applic 1 applic BID TOP Last administered on 09:54; Admin Dose 1 APPLIC; Start 10/16/17 at 14:00 Propofol (Diprivan) 100 ml @ 7.35 mls/hr Q12H IV Last administered on 11:48; Admin Dose 58.8 MLS/HR; Start 10/17/17 at 08:30 LEXII LADD MD Oct 17, 2017 12:20
--- NOTE | 2017-10-17 14:05 | CONS ---
DATE OF ADMISSION: 10/14/2017 DATE OF CONSULTATION: 10/17/2017 TYPE OF CONSULTATION: Pulmonary. REASON FOR CONSULT: Hypoxemic and hypercapnic respiratory failure. HISTORY OF PRESENT ILLNESS: This is a 47-year-old gentleman with morbid obesity, obstructive sleep apnea diagnosed many years ago, noncompliant with CPAP, originally admitted for increasing shortness of breath, orthopnea, PND, found to have hypercapnia, refused noninvasive positive pressure ventila tion overnight. This morning became more altered, distress requiring emergent intubation and transf erred to intensive care unit. He is now on mechanical ventilation, sedated, appears comfortable at rest, no acute distress. PAST MEDICAL HISTORY: Morbid obesity, obstructive sleep apnea, lower extremity venous stasis. MEDICATIONS: Per chart. ALLERGIES: NONE. SOCIAL HISTORY: Nonsmoker, no alcohol, no history of drug use. FAMILY HISTORY: Noncontributory. SYSTEMS REVIEW: A 14-point review of systems unable to perform. PHYSICAL EXAMINATION: Morbidly obese gentleman, intubated on mechanical ventilation, appears comfor table at rest, no acute distress, currently afebrile, pulse is 82, blood pressure 117/70, O2 saturat ion 96%, FIO2 of 50%. NECK: Supple. No JVD or lymphadenopathy. CARDIAC: S1, S2, no added sounds or murmurs. CHEST: Diminished air entry bilaterally. ABDOMEN: Soft, nontender. No guarding or rebound. EXTREMITIES: No cyanosis, clubbing or edema. NEUROLOGIC: Generalized weakness. LABORATORY DATA: White count 8.7, hemoglobin 13.4, platelets of 348. Chemistry within normal limit s. INR was 1.1 , D-dimer was elevated at 702. Initial ABG: pH 7.19 and now 7.33 on the vent. IMPRESSION AND PLAN: 1. Acute on chronic hypercapnic respiratory failure. 2. Morbid obesity. 3. Likely diastolic dysfunction. 4. Possible thromboembolic disease. PLAN: 1. Continue anticoagulation for deep vein thrombosis. 2. Mechanical ventilation. 3. Bronchodilators. 4. Echocardiogram. 5. Deep venous thrombosis and gastrointestinal prophylaxis. Dictated By: BRIGETTE CODY MD SV/NTS Conf#: [id number] DID#: [id number] CC: LORENA JONES MD;*EndCC*
[2017-10-17] MEDS: WARFARIN 7.5 MG TAB PO SCH (16:20)
--- NOTE | 2017-10-17 22:26 | RADRPT ---
PROCEDURE: Portable chest x-ray. CLINICAL INDICATION: 47-year of age, male. NG placement. TECHNIQUE: Portable AP view of the chest. COMPARISON: None available. FINDINGS: There is an enteric tube with the tip over the gastric antrum. There is an endotracheal tube that is 4.5 cm from the kathe. Tortuous aorta. Enlarged cardiopericardial silhouette. There are bilateral perihilar infiltrates in keeping with pulmonary edema. Left lower lobe lung cons olidation likely represents atelectasis. Negative for pleural effusion or pneumothorax. No acute bony abnormality. Additional comment: None. IMPRESSION: 1. Enteric tube in good position with tip over gastric antrum. 2. Endotracheal tube in good position. 3. Cardiomegaly and bilateral perihilar infiltrates are likely due to pulmonary edema. Left lower l obe lung consolidation may represent atelectasis, aspiration or pneumonia. RPTAT: HCTS Physician Gregoria Date Time Electronically viewed and signed by Physician Gregoria on 10/17/2017 22:26 /
[2017-10-17] MEDS: FAMOTIDINE 20 MG TAB GTB SCH (22:39)
[2017-10-18] VITALS (37 sets, daily range): BP systolic 107–169; BP diastolic 64–110; PULSE 66–115; RESP 20–28
[2017-10-18] MEDS: PROPOFOL 100 ML IV SCH ×14 (00:05→23:50)
[2017-10-18 06:41] LABS: BASOPHILS % 0.5 % (0.0-2.0); EOSINOPHILS # 0.2 10^3/ul (0.0-0.5); EOSINOPHILS % 2.1 % (0.0-7.0); HEMATOCRIT 39.1 % (42.0-52.0); LYMPHOCYTES # 2.2 10^3/ul (0.8-2.9); LYMPHOCYTES % 28.1 % (15.0-51.0); MEAN CORPUSCULAR HEMOGLOBIN 24.7 pg (29.0-33.0); MEAN CORPUSCULAR HGB CONC 30.7 g/dl (32.0-37.0); MEAN CORPUSCULAR VOLUME 80.5 fl (82.0-101.0); MONOCYTE # 0.9 10^3/ul (0.3-0.9); MONOCYTES % 11.7 % (0.0-11.0); NEUTROPHIL # 4.4 10^3/ul (1.6-7.5); NEUTROPHILS % 57.1 % (39.0-77.0); PLATELET COUNT 303 10^3/UL (140-415); RED BLOOD COUNT 4.86 10^6/ul (4.70-6.10); RED CELL DISTRIBUTION WIDTH 19.5 % (11.5-14.5); WHITE BLOOD COUNT 7.8 10^3/ul (4.8-10.8)
--- NOTE | 2017-10-18 06:55 | CONS ---
Date/Time of Note Date/Time of Note DATE: 10/18/17 TIME: 06:52 Assessment/Plan Assessment/Plan Additional Assessment/Plan Congestive heart failure Massive obesity BMI greater than 70 Rule out PE Need to establish CODE STATUS this patient has an extremely high mortality rate during his hospitalization We will speak to social work service today to find out if there are first- degree family members. Will not institute bioethics consult at this time. Consultation Date/Type/Reason Admit Date/Time Type of Consultation: Palliative care Past Surgical History Past Surgical Hx: no surgical history Social History Alcohol Use: none Smoking Status: Former smoker Drug Use: marijuana Exam/Review of Systems Vital Signs Vitals Vital Signs Date Time Temp Pulse Resp B/P Pulse Ox O2 Delivery O2 Flow Rate FiO2 10/18/17 06:00 66 22 107/66 96 Mechanical Ventilator 10/18/17 05:59 60 10/18/17 04:00 98.0 10/17/17 07:30 15.0 Intake and Output 10/17/17 10/17/17 10/18/17 14:59 22:59 06:59 Intake Total 364.4 ml 528.45 ml 529.20 ml Output Total 800 ml 1530 ml 1850 ml Balance -435.6 ml -1001.55 ml -1320.80 ml Exam Constitutional: other (Sedated) Head: atraumatic, normocephalic, No hematomas, No lacerations, No other Respiratory: congested cough, diminished breath sounds Cardiovascular: nl pulses, regular rate and rhythm, No S3, No S4, No bruits, No diastolic murmur, No edema, No gallop, No irregular rhythm, No jugular venous distention (JVD), No murmurs/extra sounds, No other, No rub, No systolic murmur Results Result Diagram: 10/18/17 0537 10/15/17 0500 Results 24 hrs Laboratory Tests Test 10/17/17 07:05 10/17/17 07:09 10/17/17 09:00 10/17/17 11:00 B-Type Natriuretic Peptide 53 Prothrombin Time 14.2 Prothrombin Time Ratio 1.1 INR International Normalized Ratio 1.10 Blood Gas Specimen Source Blood arterial Blood arterial Arterial Blood Date Drawn 10/17/2017 9:10:36 AM 10/17/2017 11:30:43 AM Arterial Blood pH (Temp corrected) 7.196 *L 7.331 L Arterial Blood pCO2 (Temp correct) 97.8 *H 70.2 H Arterial Blood pO2 (Temp corrected) 130.2 H 192.9 H Arterial Blood HCO3 37.0 H 36.3 H Arterial Blood Base Excess 5.3 H 7.8 H Arterial Blood Oxygen Saturation 97.9 99.1 H Danyel Test ACCEPTAB ACCEPTAB Arterial Blood Gas Puncture Site Left Radial Right Radial Arterial Blood Carboxyhemoglobin 0.9 0.5 Arterial Blood Methemoglobin 0.2 0.2 Blood Gas A-a O2 Differential 485.0 H 449.9 H Oxyhemoglobin Percent 96.8 98.4 Total Hemoglobin 14.0 13.4 Blood Gas Temperature 37.0 37.0 Blood Gas Respiration Rate 22.0 22.0 Blood Gas Actual Respiration Rate 22 22 Blood Gas Modality VENT - AC VENT - AC FiO2 100.0 100.0 Blood Gas Tidal Volume 600.0 600.0 Blood Gas Low PEEP Setting 5.0 5.0 Blood Gas Critical Value Read Back BESSIE HERNANDEZ Blood Gas Notified Whom AT [facility] Blood Gas Notified Time 10/17/2017 9:22:00 AM 10/17/2017 11:38:38 AM Test 10/18/17 05:37 White Blood Count 7.8 Red Blood Count 4.86 Hemoglobin 12.0 L Hematocrit 39.1 L Mean Corpuscular Volume 80.5 L Mean Corpuscular Hemoglobin 24.7 L Mean Corpuscular Hemoglobin Concent 30.7 L Red Cell Distribution Width 19.5 H Platelet Count 303 Mean Platelet Volume 10.0 Neutrophils % 57.1 Lymphocytes % 28.1 Monocytes % 11.7 H Eosinophils % 2.1 Basophils % 0.5 Nucleated Red Blood Cells % 0.0 Neutrophils # 4.4 Lymphocytes # 2.2 Monocytes # 0.9 Eosinophils # 0.2 Basophils # 0.0 Nucleated Red Blood Cells # 0.0 Medications Medications Current Medications Ondansetron HCl (Zofran Inj) 4 mg Q6H PRN IV NAUSEA AND/OR VOMITING Last administered on 10/17/17t 03:01; Admin Dose 4 MG; Start 10/14/17 at 21:30 Nitroglycerin (Nitroglycerin (Sl Tab) 0.4 Mg) 1 tab Q5M PRN SL CHEST PAIN; Start 10/14/17 at 21:30 Acetaminophen (Tylenol Tab) 650 mg Q6H PRN PO PAIN LEVEL 1-3 OR FEVER Last administered on 10/17/17 01:54; Admin Dose 650 MG; Start 10/14/17 at 21:30 Warfarin Sodium (Coumadin) 7.5 mg DAILY@17 PO Last administered on 10/16/17 17:11; Admin Dose 7.5 MG; Start 10/15/17 at 17:00 Enoxaparin Sodium (Lovenox) 245 mg Q12 SC Last administered on 10/17/17 21:11 ; Admin Dose 245 MG; Start 10/16/17 at 01:00 Morphine Sulfate (morphine) 2 mg Q4H PRN IV PAIN LEVEL 7-10 Last administered on 10/17/17 01:54; Admin Dose 2 MG; Start 10/16/17 at 00:00 Multi-Ingredient Ointment (Eucerin Cream) 1 applic BID TOP Last administered on 10/17/17 21:10; Admin Dose 1 APPLIC; Start 10/16/17 at 09:00 Diphenhydramine HCl (Benadryl) 50 mg Q4H PRN PO ITCHING Last administered on 10:07; Admin Dose 50 MG; Start 10/16/17 at 09:00 Triamcinolone Acetonide 1 applic 1 applic BID TOP Last administered on 21:10; Admin Dose 1 APPLIC; Start 10/16/17 at 14:00 Propofol (Diprivan) 100 ml @ 7.35 mls/hr Q12H IV Last administered on 06:46; Admin Dose 66.15 MLS/HR; Start 10/17/17 at 08:30 Famotidine (Pepcid) 20 mg HS GTB Last administered on 10/17/17 22:39; Admin Dose 20 MG; Start 10/17/17 at 21:00 JACK FONTENOT Oct 18, 2017 06:55
[2017-10-18 07:15] LABS: CALCIUM 8.9 mg/dl (8.4-10.2); CREATININE 0.81 mg/dl (0.61-1.24)
[2017-10-18 07:17] LABS: INR 1.18; PROTIME 15.1 Sec (12.2-14.2); PT RATIO 1.2
--- NOTE | 2017-10-18 07:52 | RADRPT ---
PROCEDURE: XR Chest. CLINICAL INDICATION: Respiratory failure TECHNIQUE: Single frontal view of the chest. COMPARISON: 10/17/2017 and 10/14/2017 FINDINGS: Support lines and tubes: Endotracheal tube tip well positioned over the mid tracheal shadow. Enteri c tube tip passes below the diaphragm and below the field of view. Cardiac/vascular structures: Stable moderately enlarged cardiomediastinal silhouette. Pulmonary: Interval worsening of bilateral perihilar and left basilar airspace opacities. Probable small left pleural effusion. No evidence of pneumothorax. Osseous structures: Normal Soft tissues: Normal IMPRESSION: 1. Stable position of tubes. 2. Interval worsening of bilateral airspace opacities representing pulmonary edema or multifocal pne umonia . 3. Probable small left pleural effusion. RPTAT:AAJJ Physician Clara Date Time Electronically viewed and signed by Brenton Daly Physician on 10/18/2017 07:52 /
[2017-10-18 07:57] LABS: AADO2 Arterial 278.8 mmHg (7.0-24.0); Allen Test ACCEPTAB; Arterial Base Excess 5.7 mmol/L (-3.0-3); Arterial COHb 0.3 % (0.0-3.0); Arterial Fraction of Oxyhgb 97.2 % (93.0-99.0); Arterial HCO3 29.8 mmol/L (22.0-26.0); Arterial MetHb 0.1 % (0.0-1.5); Arterial Total Hemglobin 13.1 g/dl (12.0-18.0); MODE VENT - AC
[2017-10-18] MEDS: TRIAMCINOLONE ACET 0.1% 15 GM OINT TOP SCH ×2 (08:59→20:49)
[2017-10-18] MEDS: EUCERIN 113 GM CR TOP SCH ×2 (08:59→20:50)
[2017-10-18] MEDS: ENOXAPARIN 100 MG/ML SYG SC SCH ×2 (09:00→20:52)
--- NOTE | 2017-10-18 10:57 | CONS ---
Date/Time of Note Date/Time of Note DATE: 10/18/17 TIME: 10:52 Consult Date/Type/Reason Admit Date/Time Oct 14, 2017 at 20:55 Initial Consult Date Type of Consultation: Pulmonary Subjective Patient intubated sedated on mechanical ventilation. Mild tachypnea. Objective Vital Signs Date Time Temp Pulse Resp B/P Pulse Ox O2 Delivery O2 Flow Rate FiO2 10/18/17 08:00 60 10/18/17 07:00 69 22 123/79 96 Mechanical Ventilator 10/18/17 04:00 98.0 10/17/17 07:30 15.0 Intake and Output 10/17/17 10/17/17 10/18/17 15:00 23:00 07:00 Intake Total 430.4 ml 528.60 ml 529.20 ml Output Total 900 ml 1630 ml 1650 ml Balance -469.6 ml -1101.40 ml -1120.80 ml Exam PHYSICAL EXAMINATION: Morbidly obese gentleman, intubated on mechanical ventilation, appears comfortable at rest, no acute distress, NECK: Supple. No JVD or lymphadenopathy. CARDIAC: S1, S2, no added sounds or murmurs. CHEST: Diminished air entry bilaterally. ABDOMEN: Soft, nontender. No guarding or rebound. EXTREMITIES: No cyanosis, clubbing or edema. NEUROLOGIC: Generalized weakness. Results/Medications Result Diagram: 10/18/17 0537 10/18/17 0537 Results 24 hrs Chest x-ray Pulmonary edema. Laboratory Tests Test 10/17/17 11:00 10/18/17 05:37 10/18/17 07:00 Blood Gas Specimen Source Blood arterial Blood arterial Arterial Blood Date Drawn 10/17/2017 11:30:43 AM 10/18/2017 7:40:00 AM Arterial Blood pH (Temp corrected) 7.331 L 7.475 H Arterial Blood pCO2 (Temp correct) 70.2 H 41.4 Arterial Blood pO2 (Temp corrected) 192.9 H 103.5 H Arterial Blood HCO3 36.3 H 29.8 H Arterial Blood Base Excess 7.8 H 5.7 H Arterial Blood Oxygen Saturation 99.1 H 97.6 Danyel Test ACCEPTAB ACCEPTAB Arterial Blood Gas Puncture Site Right Radial Right Radial Arterial Blood Carboxyhemoglobin 0.5 0.3 Arterial Blood Methemoglobin 0.2 0.1 Blood Gas A-a O2 Differential 449.9 H 278.8 H Oxyhemoglobin Percent 98.4 97.2 Total Hemoglobin 13.4 13.1 Blood Gas Temperature 37.0 37.0 Blood Gas Respiration Rate 22.0 22.0 Blood Gas Actual Respiration Rate 22 22 Blood Gas Modality VENT - AC VENT - AC FiO2 100.0 60.0 Blood Gas Tidal Volume 600.0 600.0 Blood Gas Low PEEP Setting 5.0 5.0 Blood Gas Notified Whom JLD JLD Blood Gas Notified Time 10/17/2017 11:38:38 AM 10/18/2017 7:57:46 AM White Blood Count 7.8 Red Blood Count 4.86 Hemoglobin 12.0 L Hematocrit 39.1 L Mean Corpuscular Volume 80.5 L Mean Corpuscular Hemoglobin 24.7 L Mean Corpuscular Hemoglobin Concent 30.7 L Red Cell Distribution Width 19.5 H Platelet Count 303 Mean Platelet Volume 10.0 Neutrophils % 57.1 Lymphocytes % 28.1 Monocytes % 11.7 H Eosinophils % 2.1 Basophils % 0.5 Nucleated Red Blood Cells % 0.0 Neutrophils # 4.4 Lymphocytes # 2.2 Monocytes # 0.9 Eosinophils # 0.2 Basophils # 0.0 Nucleated Red Blood Cells # 0.0 Prothrombin Time 15.1 H Prothrombin Time Ratio 1.2 INR International Normalized Ratio 1.18 Sodium Level 142 Potassium Level 4.0 Chloride Level 100 Carbon Dioxide Level 34 H Anion Gap 12 Blood Urea Nitrogen 11 Creatinine 0.81 Glucose Level 98 Calcium Level 8.9 Medications Current Medications Ondansetron HCl (Zofran Inj) 4 mg Q6H PRN IV NAUSEA AND/OR VOMITING Last administered on 10/17/17 03:01; Admin Dose 4 MG; Start 10/14/17 at 21:30 Nitroglycerin (Nitroglycerin (Sl Tab) 0.4 Mg) 1 tab Q5M PRN SL CHEST PAIN; Start 10/14/17 at 21:30 Acetaminophen (Tylenol Tab) 650 mg Q6H PRN PO PAIN LEVEL 1-3 OR FEVER Last administered on 10/17/17 01:54; Admin Dose 650 MG; Start 10/14/17 at 21:30 Warfarin Sodium (Coumadin) 7.5 mg DAILY@17 PO Last administered on 10/16/17 17:11; Admin Dose 7.5 MG; Start 10/15/17 at 17:00 Enoxaparin Sodium (Lovenox) 245 mg Q12 SC Last administered on 10/18/17 09:00 ; Admin Dose 245 MG; Start 10/16/17 at 01:00 Morphine Sulfate (morphine) 2 mg Q4H PRN IV PAIN LEVEL 7-10 Last administered on 10/17/17 01:54; Admin Dose 2 MG; Start 10/16/17 at 00:00 Multi-Ingredient Ointment (Eucerin Cream) 1 applic BID TOP Last administered on 10/18/17 08:59; Admin Dose 1 APPLIC; Start 10/16/17 at 09:00 Diphenhydramine HCl (Benadryl) 50 mg Q4H PRN PO ITCHING Last administered on 10:07; Admin Dose 50 MG; Start 10/16/17 at 09:00 Triamcinolone Acetonide 1 applic 1 applic BID TOP Last administered on 08:59; Admin Dose 1 APPLIC; Start 10/16/17 at 14:00 Propofol (Diprivan) 100 ml @ 7.35 mls/hr Q12H IV Last administered on 09:54; Admin Dose 66.15 MLS/HR; Start 10/17/17 at 08:30 Famotidine 20 mg 20 mg HS GTB Last administered on 10/17/17 22:39; Admin Dose 20 MG; Start 10/17/17 at 21:00 Fentanyl (Sublimaze) 100 ml @ 2.5 mls/hr TITRATE IV ; Start 10/18/17 at 10:00 Assessment/Plan Chief Complaint/Hosp Course IMPRESSION 1. Acute on chronic hypercapnic respiratory failure. 2. Morbid obesity. 3. Likely diastolic dysfunction.pulmonary edema. 4. Possible thromboembolic disease. Unable to exclude thromboembolic disease given morbid obesity. Elevated D-dimers. PLAN: 1. Continue anticoagulation for deep vein thrombosis. Consider Eliquis or Xarelto. 2. Mechanical ventilation. Additional fentanyl for agitation. 3. Bronchodilators. 4. Echocardiogram. Diuresis if tolerated. 5. Deep venous thrombosis and gastrointestinal prophylaxis. Problems: BRIGETTE CODY MD, [facility] Oct 18, 2017 10:57
[2017-10-18] MEDS: FENTAnyl (DRIP) 1000 mcg/100mL 100 ML IV SCH ×2 (10:59→20:59)
--- NOTE | 2017-10-18 11:35 | PN ---
Date/Time of Note Date/Time of Note DATE: 10/18/17 TIME: 11:32 Assessment/Plan VTE Prophylaxis VTE Prophylaxis Intervention: SCD's Lines/Catheters IV Catheter Type (from Nrsg): Mid Line Urinary Cath still in place: Yes Reason Cath still needed: other (indicate) (critically ill) Assessment/Plan Assessment/Plan 47 yo M with super morbid obesity, DM presented to [facility] intubated overnight for airway protection in setting of CO2 narcosis and pulmonary edema. Suspect pulmonary edema noncardiogenic in origin given TTE from within past 48 hours with just DD, already ruled out for acute PA during this hospital stay. BNP on admission normal. P/F ratio consistent with mild ARDS with P/F ~240. PLAN -low TV ventilatory management, defer to pulm though pt currently at TV 600mL which corresponds to ~7.5 mL/kg -no evidence of pneumonia, unlikely aspiration. hold abx at this time -repeat BNP normal and TTE with just DD. Unlikely CHF though suppose there is relatively little risk to a trial of diuretic ?possible PE: cont LMWH and warfarin bridge -per pharmacy, cannot use NOAC if BMI >40 LE wounds: await wound care eval DM2: cont SSI FEN: start TFs today critical care time: 30 minutes Subjective 24 Hr Interval Summary Free Text/Dictation still intubated and on a fair amount of sedation Exam/Review of Systems Vital Signs Vitals Vital Signs Date Time Temp Pulse Resp B/P Pulse Ox O2 Delivery O2 Flow Rate FiO2 10/18/17 11:00 74 22 137/89 100 Mechanical Ventilator 10/18/17 08:00 98.4 10/18/17 08:00 60 10/17/17 07:30 15.0 Intake and Output 10/17/17 10/17/17 10/18/17 15:00 23:00 07:00 Intake Total 430.4 ml 528.60 ml 529.20 ml Output Total 900 ml 1630 ml 1650 ml Balance -469.6 ml -1101.40 ml -1120.80 ml Exam intubated and sedated distant lung sound distant heart sounds abd soft LEs unchanged Results Result Diagram: 10/18/17 0537 10/18/17 0537 Results 24 hrs Laboratory Tests Test 10/18/17 05:37 10/18/17 07:00 White Blood Count 7.8 Red Blood Count 4.86 Hemoglobin 12.0 L Hematocrit 39.1 L Mean Corpuscular Volume 80.5 L Mean Corpuscular Hemoglobin 24.7 L Mean Corpuscular Hemoglobin Concent 30.7 L Red Cell Distribution Width 19.5 H Platelet Count 303 Mean Platelet Volume 10.0 Neutrophils % 57.1 Lymphocytes % 28.1 Monocytes % 11.7 H Eosinophils % 2.1 Basophils % 0.5 Nucleated Red Blood Cells % 0.0 Neutrophils # 4.4 Lymphocytes # 2.2 Monocytes # 0.9 Eosinophils # 0.2 Basophils # 0.0 Nucleated Red Blood Cells # 0.0 Prothrombin Time 15.1 H Prothrombin Time Ratio 1.2 INR International Normalized Ratio 1.18 Sodium Level 142 Potassium Level 4.0 Chloride Level 100 Carbon Dioxide Level 34 H Anion Gap 12 Blood Urea Nitrogen 11 Creatinine 0.81 Glucose Level 98 Calcium Level 8.9 Blood Gas Specimen Source Blood arterial Arterial Blood Date Drawn 10/18/2017 7:40:00 AM Arterial Blood pH (Temp corrected) 7.475 H Arterial Blood pCO2 (Temp correct) 41.4 Arterial Blood pO2 (Temp corrected) 103.5 H Arterial Blood HCO3 29.8 H Arterial Blood Base Excess 5.7 H Arterial Blood Oxygen Saturation 97.6 Danyel Test ACCEPTAB Arterial Blood Gas Puncture Site Right Radial Arterial Blood Carboxyhemoglobin 0.3 Arterial Blood Methemoglobin 0.1 Blood Gas A-a O2 Differential 278.8 H Oxyhemoglobin Percent 97.2 Total Hemoglobin 13.1 Blood Gas Temperature 37.0 Blood Gas Respiration Rate 22.0 Blood Gas Actual Respiration Rate 22 Blood Gas Modality VENT - AC FiO2 60.0 Blood Gas Tidal Volume 600.0 Blood Gas Low PEEP Setting 5.0 Blood Gas Notified Whom JLD Blood Gas Notified Time 10/18/2017 7:57:46 AM Medications Medications Current Medications Ondansetron HCl (Zofran Inj) 4 mg Q6H PRN IV NAUSEA AND/OR VOMITING Last administered on 10/17/17 03:01; Admin Dose 4 MG; Start 10/14/17 at 21:30 Nitroglycerin (Nitroglycerin (Sl Tab) 0.4 Mg) 1 tab Q5M PRN SL CHEST PAIN; Start 10/14/17 at 21:30 Acetaminophen (Tylenol Tab) 650 mg Q6H PRN PO PAIN LEVEL 1-3 OR FEVER Last administered on 10/17/17 01:54; Admin Dose 650 MG; Start 10/14/17 at 21:30 Warfarin Sodium (Coumadin) 7.5 mg DAILY@17 PO Last administered on 10/16/17 17:11; Admin Dose 7.5 MG; Start 10/15/17 at 17:00 Enoxaparin Sodium (Lovenox) 245 mg Q12 SC Last administered on 10/18/17 09:00 ; Admin Dose 245 MG; Start 10/16/17 at 01:00 Morphine Sulfate (morphine) 2 mg Q4H PRN IV PAIN LEVEL 7-10 Last administered on 10/17/17 01:54; Admin Dose 2 MG; Start 10/16/17 at 00:00 Multi-Ingredient Ointment (Eucerin Cream) 1 applic BID TOP Last administered on 10/18/17 08:59; Admin Dose 1 APPLIC; Start 10/16/17 at 09:00 Diphenhydramine HCl (Benadryl) 50 mg Q4H PRN PO ITCHING Last administered on 10:07; Admin Dose 50 MG; Start 10/16/17 at 09:00 Triamcinolone Acetonide 1 applic 1 applic BID TOP Last administered on 08:59; Admin Dose 1 APPLIC; Start 10/16/17 at 14:00 Propofol (Diprivan) 100 ml @ 7.35 mls/hr Q12H IV Last administered on 09:54; Admin Dose 66.15 MLS/HR; Start 10/17/17 at 08:30 Famotidine 20 mg 20 mg HS GTB Last administered on 10/17/17 22:39; Admin Dose 20 MG; Start 10/17/17 at 21:00 Fentanyl (Sublimaze) 100 ml @ 2.5 mls/hr TITRATE IV Last administered on 10/18 10:59; Admin Dose 2.5 MLS/HR; Start 10/18/17 at 10:00 LEXII LADD MD Oct 18, 2017 11:35
[2017-10-18] MEDS: WARFARIN 10 MG TAB PO SCH (17:23)
[2017-10-18] MEDS: FUROSEMIDE 40 MG INJ IV SCH (17:23)
[2017-10-18] MEDS: FAMOTIDINE 20 MG TAB GTB SCH (20:49)
[2017-10-18] MEDS: LORAZEPAM 2 MG INJ IV PRN (21:08)
[2017-10-19] VITALS (36 sets, daily range): BP systolic 105–147; BP diastolic 54–90; PULSE 76–101; RESP 16–37
[2017-10-19] MEDS: PROPOFOL 100 ML IV SCH ×12 (01:29→23:53)
[2017-10-19 04:28] LABS: BASOPHIL # 0.1 10^3/ul (0.0-0.1); BASOPHILS % 0.5 % (0.0-2.0); EOSINOPHILS # 0.1 10^3/ul (0.0-0.5); EOSINOPHILS % 1.1 % (0.0-7.0); HEMATOCRIT 38.8 % (42.0-52.0); HEMOGLOBIN 12.1 g/dl (14.0-18.0); LYMPHOCYTES # 2.5 10^3/ul (0.8-2.9); LYMPHOCYTES % 22.4 % (15.0-51.0); MEAN CORPUSCULAR HEMOGLOBIN 24.7 pg (29.0-33.0); MEAN CORPUSCULAR HGB CONC 31.2 g/dl (32.0-37.0); MEAN CORPUSCULAR VOLUME 79.3 fl (82.0-101.0); MEAN PLATELET VOLUME 9.7 fl (7.4-10.4); MONOCYTE # 1.3 10^3/ul (0.3-0.9); MONOCYTES % 11.9 % (0.0-11.0); NEUTROPHILS % 63.6 % (39.0-77.0); PLATELET COUNT 315 10^3/UL (140-415); RED BLOOD COUNT 4.89 10^6/ul (4.70-6.10); RED CELL DISTRIBUTION WIDTH 19.5 % (11.5-14.5)
[2017-10-19 05:04] LABS: INR 1.19; PROTIME 15.2 Sec (12.2-14.2); PT RATIO 1.2
[2017-10-19 05:05] LABS: CALCIUM 8.6 mg/dl (8.4-10.2); CREATININE 0.82 mg/dl (0.61-1.24); MAGNESIUM 1.7 mg/dl (1.7-2.5); PHOSPHORUS 4.9 mg/dl (2.5-4.9); POTASSIUM 3.7 mmol/L (3.5-5.1)
[2017-10-19] MEDS: FUROSEMIDE 40 MG INJ IV SCH ×2 (05:54→17:38)
[2017-10-19] MEDS: FENTAnyl (DRIP) 1000 mcg/100mL 100 ML IV SCH ×2 (07:43→18:19)
[2017-10-19] MEDS: EUCERIN 113 GM CR TOP SCH ×2 (08:56→20:55)
[2017-10-19] MEDS: TRIAMCINOLONE ACET 0.1% 15 GM OINT TOP SCH ×2 (08:56→20:55)
[2017-10-19] MEDS: ENOXAPARIN 100 MG/ML SYG SC SCH ×2 (08:58→20:55)
--- NOTE | 2017-10-19 09:11 | RADRPT ---
PROCEDURE: XR Chest AP portable CLINICAL INDICATION: With pneumonia, CHF TECHNIQUE: An AP portable radiograph of the chest was submitted. COMPARISON: 10/18/2017 FINDINGS: Support Hardware: The endotracheal tube and the NG tube are stable in positioning. Cardiovascular: The heart remains mildly enlarged and the pulmonary vasculature again appears conges miguel. Lung [place]: Worsening air space opacification is seen within the left lower lobe. There is subsegme ntal atelectasis at the medial right lung base and perihilar interstitial infiltrate is again noted. Pleural Spaces: No pneumothorax or pleural effusion is identified. Osseous Structures: The osseous structures appear intact. Soft Tissues: The soft tissues appear generous. IMPRESSION: 1. The tubes and lines are stable in positioning. 2. Persistent mild cardiomegaly with pulmonary vascular congestion and interstitial edema. 3. More extensive air space opacification involving the left lower lobe and with persistent discoid atelectasis at the medial right lung base. Physician Deon Date Time Electronically viewed and signed by Physician Deon on 10/19/2017 09:10 /
[2017-10-19 09:17] LABS: Allen Test ACCEPTAB; Arterial COHb 0.8 % (0.0-3.0); Arterial Fraction of Oxyhgb 95.1 % (93.0-99.0); Arterial HCO3 33.5 mmol/L (22.0-26.0); Arterial MetHb 0.1 % (0.0-1.5); Arterial Total Hemglobin 13.6 g/dl (12.0-18.0); MODE VENT - AC
--- NOTE | 2017-10-19 11:23 | CONS ---
Date/Time of Note Date/Time of Note DATE: 10/19/17 TIME: 11:20 Assessment/Plan Assessment/Plan Additional Assessment/Plan Chest x-ray was reviewed from today which is showing endotracheal tube at an adequate level. Mild pulmonary vascular congestion and cardiomegaly are present. Ventilator setting; AC of 22, tidal volume 600, PEEP of 5, 55% FiO2. Assessment and recommendations; 1. Patient admitted with hypercapnic respiratory failure due to underlying morbid obesity with obesity/hypoventilation syndrome. 2. CHF. 3. Possibly underlying thromboembolic disease. Continue current supportive care. Ventilator settings have been adjusted. Patient currently has been hyperventilated. Currently volume has been decreased to 550, rate to 18. Consultation Date/Type/Reason Admit Date/Time Oct 14, 2017 at 20:55 Initial Consult Date Type of Consultation: Pulmonary 24 HR Interval Summary Free Text/Dictation Patient condition remains critical. Remains orally intubated. Has remained hemodynamically stable. General exam; middle-aged male, morbidly obese, orally intubated, sedated, currently in no distress. Exam/Review of Systems Vital Signs Vitals Vital Signs Date Time Temp Pulse Resp B/P Pulse Ox O2 Delivery O2 Flow Rate FiO2 10/19/17 08:00 89 10/19/17 08:00 55 10/19/17 06:00 22 112/66 96 Mechanical Ventilator 10/19/17 04:00 98.7 10/17/17 07:30 15.0 Intake and Output 10/18/17 10/18/17 10/19/17 15:00 23:00 07:00 Intake Total 455.5 ml 568.4 ml 647.80 ml Output Total 1470 ml 2465 ml 400 ml Balance -1014.5 ml -1896.6 ml 247.80 ml Exam HEENT exam; supple neck, JVD difficult to see because of short neck. Patient is orally intubated. Pupils are small bilaterally. Has bilateral intraocular lens implants. Chest exam; diminished breath sounds throughout. S1-S2 audible, no murmurs. Regular rhythm. Abdomen exam; grossly protuberant. Bowel sounds are audible. Extremity exam; chronic appearing lower extremity skin changes. 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 Results Result Diagram: 10/19/17 0345 10/19/17 0345 Results 24 hrs Laboratory Tests Test 10/19/17 03:45 10/19/17 07:00 White Blood Count 11.0 #H Red Blood Count 4.89 Hemoglobin 12.1 L Hematocrit 38.8 L Mean Corpuscular Volume 79.3 L Mean Corpuscular Hemoglobin 24.7 L Mean Corpuscular Hemoglobin Concent 31.2 L Red Cell Distribution Width 19.5 H Platelet Count 315 Mean Platelet Volume 9.7 Neutrophils % 63.6 Lymphocytes % 22.4 Monocytes % 11.9 H Eosinophils % 1.1 Basophils % 0.5 Nucleated Red Blood Cells % 0.0 Neutrophils # 7.0 Lymphocytes # 2.5 Monocytes # 1.3 H Eosinophils # 0.1 Basophils # 0.1 Nucleated Red Blood Cells # 0.0 Prothrombin Time 15.2 H Prothrombin Time Ratio 1.2 INR International Normalized Ratio 1.19 Sodium Level 144 Potassium Level 3.7 Chloride Level 100 Carbon Dioxide Level 36 H Anion Gap 12 Blood Urea Nitrogen 11 Creatinine 0.82 Glucose Level 97 Calcium Level 8.6 Phosphorus Level 4.9 Magnesium Level 1.7 Blood Gas Specimen Source Blood arterial Arterial Blood Date Drawn 10/19/2017 8:55:23 AM Arterial Blood pH (Temp corrected) 7.490 H Arterial Blood pCO2 (Temp correct) 45.0 Arterial Blood pO2 (Temp corrected) 83.1 Arterial Blood HCO3 33.5 H Arterial Blood Base Excess 9.0 H Arterial Blood Oxygen Saturation 96.0 Danyel Test ACCEPTAB Arterial Blood Gas Puncture Site Right Radial Arterial Blood Carboxyhemoglobin 0.8 Arterial Blood Methemoglobin 0.1 Blood Gas A-a O2 Differential 259.0 H Oxyhemoglobin Percent 95.1 Total Hemoglobin 13.6 Blood Gas Temperature 37.0 Blood Gas Respiration Rate 22.0 Blood Gas Actual Respiration Rate 22 Blood Gas Modality VENT - AC FiO2 55.0 Blood Gas Tidal Volume 600.0 Blood Gas Low PEEP Setting 5.0 Blood Gas Notified Whom DT Blood Gas Notified Time 10/19/2017 9:16:59 AM Medications Medications Current Medications Ondansetron HCl (Zofran Inj) 4 mg Q6H PRN IV NAUSEA AND/OR VOMITING Last administered on 10/17/17t 03:01; Admin Dose 4 MG; Start 10/14/17 at 21:30 Nitroglycerin (Nitroglycerin (Sl Tab) 0.4 Mg) 1 tab Q5M PRN SL CHEST PAIN; Start 10/14/17 at 21:30 Acetaminophen (Tylenol Tab) 650 mg Q6H PRN PO PAIN LEVEL 1-3 OR FEVER Last administered on 10/17/17 01:54; Admin Dose 650 MG; Start 10/14/17 at 21:30 Enoxaparin Sodium (Lovenox) 245 mg Q12 SC Last administered on 10/19/17 08:58 ; Admin Dose 245 MG; Start 10/16/17 at 01:00 Morphine Sulfate (morphine) 2 mg Q4H PRN IV PAIN LEVEL 7-10 Last administered on 10/17/17 01:54; Admin Dose 2 MG; Start 10/16/17 at 00:00 Multi-Ingredient Ointment (Eucerin Cream) 1 applic BID TOP Last administered on 10/19/17 08:56; Admin Dose 1 APPLIC; Start 10/16/17 at 09:00 Triamcinolone Acetonide 1 applic 1 applic BID TOP Last administered on 08:56; Admin Dose 1 APPLIC; Start 10/16/17 at 14:00 Propofol (Diprivan) 100 ml @ 7.35 mls/hr Q12H IV Last administered on 09:24; Admin Dose 44.1 MLS/HR; Start 10/17/17 at 08:30 Famotidine 20 mg 20 mg HS GTB Last administered on 10/18/17 20:49; Admin Dose 20 MG; Start 10/17/17 at 21:00 Fentanyl (Sublimaze) 100 ml @ 2.5 mls/hr TITRATE IV Last administered on 10/19 07:43; Admin Dose 10 MLS/HR; Start 10/18/17 at 10:00 Warfarin Sodium (Coumadin) 10 mg DAILY@17 PO Last administered on 10/18/17 17 :23; Admin Dose 10 MG; Start 10/18/17 at 17:00 Lorazepam (Ativan) 2 mg Q4H PRN IV AGITATION Last administered on 10/18/17 21 :08; Admin Dose 2 MG; Start 10/18/17 at 21:00 GABRIEL MALDONADO Oct 19, 2017 11:23
--- NOTE | 2017-10-19 13:36 | PN ---
Date/Time of Note Date/Time of Note DATE: 10/19/17 TIME: 13:34 Assessment/Plan VTE Prophylaxis VTE Prophylaxis Intervention: SCD's Lines/Catheters IV Catheter Type (from Nrs): Mid Line Urinary Cath still in place: Yes Reason Cath still needed: other (indicate) (critically ill) Assessment/Plan Assessment/Plan 47 yo M with super morbid obesity, DM [place] [facility] [place] overnight for airway protection in setting of CO2 narcosis and pulmonary edema. Suspect pulmonary edema noncardiogenic in origin given TTE just DD, already ruled out for acute DC during this hospital stay. BNP on admission normal. P/F ratio consistent with mild ARDS with P/F ~240. PLAN -low TV ventilatory management advisable -repeat BNP normal and TTE with just DD. Unlikely CHF though suppose there is relatively little risk to a trial of diuretic-->pt now net -7L ?possible PE: cont LMWH and warfarin bridge -per pharmacy, cannot use NOAC if BMI >40 LE wounds: sp wound care eval DM2: Start SSI given tube feeds. after 24 hours will attempt to convert to lantus FEN: TFs critical care time; 30 minutes Subjective 24 Hr Interval Summary Free Text/Dictation no changes. Exam/Review of Systems Vital Signs Vitals Vital Signs Date Time Temp Pulse Resp B/P Pulse Ox O2 Delivery O2 Flow Rate FiO2 10/19/17 12:00 98.2 86 22 135/71 94 Mechanical Ventilator 10/19/17 08:00 55 10/17/17 07:30 15.0 Intake and Output 10/18/17 10/18/17 10/19/17 14:59 22:59 06:59 Intake Total 470.15 ml 574.9 ml 645.80 ml Output Total 1320 ml 2540 ml 475 ml Balance -849.85 ml -1965.1 ml 170.80 ml Exam intubated and sedated distant heart sounds distant lung sounds LEs unchanged obese Results Result Diagram: 10/19/17 0345 10/19/17 0345 Results 24 hrs Laboratory Tests Test 10/19/17 03:45 10/19/17 07:00 White Blood Count 11.0 #H Red Blood Count 4.89 Hemoglobin 12.1 L Hematocrit 38.8 L Mean Corpuscular Volume 79.3 L Mean Corpuscular Hemoglobin 24.7 L Mean Corpuscular Hemoglobin Concent 31.2 L Red Cell Distribution Width 19.5 H Platelet Count 315 Mean Platelet Volume 9.7 Neutrophils % 63.6 Lymphocytes % 22.4 Monocytes % 11.9 H Eosinophils % 1.1 Basophils % 0.5 Nucleated Red Blood Cells % 0.0 Neutrophils # 7.0 Lymphocytes # 2.5 Monocytes # 1.3 H Eosinophils # 0.1 Basophils # 0.1 Nucleated Red Blood Cells # 0.0 Prothrombin Time 15.2 H Prothrombin Time Ratio 1.2 INR International Normalized Ratio 1.19 Sodium Level 144 Potassium Level 3.7 Chloride Level 100 Carbon Dioxide Level 36 H Anion Gap 12 Blood Urea Nitrogen 11 Creatinine 0.82 Glucose Level 97 Calcium Level 8.6 Phosphorus Level 4.9 Magnesium Level 1.7 Blood Gas Specimen Source Blood arterial Arterial Blood Date Drawn 10/19/2017 8:55:23 AM Arterial Blood pH (Temp corrected) 7.490 H Arterial Blood pCO2 (Temp correct) 45.0 Arterial Blood pO2 (Temp corrected) 83.1 Arterial Blood HCO3 33.5 H Arterial Blood Base Excess 9.0 H Arterial Blood Oxygen Saturation 96.0 Danyel Test ACCEPTAB Arterial Blood Gas Puncture Site Right Radial Arterial Blood Carboxyhemoglobin 0.8 Arterial Blood Methemoglobin 0.1 Blood Gas A-a O2 Differential 259.0 H Oxyhemoglobin Percent 95.1 Total Hemoglobin 13.6 Blood Gas Temperature 37.0 Blood Gas Respiration Rate 22.0 Blood Gas Actual Respiration Rate 22 Blood Gas Modality VENT - AC FiO2 55.0 Blood Gas Tidal Volume 600.0 Blood Gas Low PEEP Setting 5.0 Blood Gas Notified Whom DT Blood Gas Notified Time 10/19/2017 9:16:59 AM Medications Medications Current Medications Ondansetron HCl (Zofran Inj) 4 mg Q6H PRN IV NAUSEA AND/OR VOMITING Last administered on 10/17/17 03:01; Admin Dose 4 MG; Start 10/14/17 at 21:30 Nitroglycerin (Nitroglycerin (Sl Tab) 0.4 Mg) 1 tab Q5M PRN SL CHEST PAIN; Start 10/14/17 at 21:30 Acetaminophen (Tylenol Tab) 650 mg Q6H PRN PO PAIN LEVEL 1-3 OR FEVER Last administered on 10/17/17 01:54; Admin Dose 650 MG; Start 10/14/17 at 21:30 Enoxaparin Sodium (Lovenox) 245 mg Q12 SC Last administered on 10/19/17 08:58 ; Admin Dose 245 MG; Start 10/16/17 at 01:00 Morphine Sulfate (morphine) 2 mg Q4H PRN IV PAIN LEVEL 7-10 Last administered on 10/17/17 01:54; Admin Dose 2 MG; Start 10/16/17 at 00:00 Multi-Ingredient Ointment (Eucerin Cream) 1 applic BID TOP Last administered on 10/19/17 08:56; Admin Dose 1 APPLIC; Start 10/16/17 at 09:00 Triamcinolone Acetonide 1 applic 1 applic BID TOP Last administered on 08:56; Admin Dose 1 APPLIC; Start 10/16/17 at 14:00 Propofol (Diprivan) 100 ml @ 7.35 mls/hr Q12H IV Last administered on 13:20; Admin Dose 51.45 MLS/HR; Start 10/17/17 at 08:30 Famotidine 20 mg 20 mg HS GTB Last administered on 10/18/17 20:49; Admin Dose 20 MG; Start 10/17/17 at 21:00 Fentanyl (Sublimaze) 100 ml @ 2.5 mls/hr TITRATE IV Last administered on 10/19 07:43; Admin Dose 10 MLS/HR; Start 10/18/17 at 10:00 Warfarin Sodium (Coumadin) 10 mg DAILY@17 PO Last administered on 10/18/17 17 :23; Admin Dose 10 MG; Start 10/18/17 at 17:00 Lorazepam (Ativan) 2 mg Q4H PRN IV AGITATION Last administered on 10/18/17 21 :08; Admin Dose 2 MG; Start 10/18/17 at 21:00 LEXII LADD MD Oct 19, 2017 13:36
[2017-10-19] MEDS: WARFARIN 10 MG TAB PO SCH (17:38)
[2017-10-19] MEDS ORDERED: GLUCOSE GEL 15 GRAM TUBE PO PRN ×2 (18:00)
[2017-10-19] MEDS ORDERED: GLUCOSE GEL 15 GRAM TUBE BUCCAL PRN (18:00)
[2017-10-19] MEDS ORDERED: GLUCAGON 1 MG INJ IM PRN (18:00)
[2017-10-19] MEDS ORDERED: DEXTROSE 50% 50 ML SYRINGE IV PRN ×2 (18:00)
[2017-10-19] MEDS: FAMOTIDINE 20 MG TAB GTB SCH (20:50)
[2017-10-19] MEDS: INSULIN ASPART [NOVOLOG] 3 ML PEN SC SCH (20:55)
[2017-10-20] VITALS (34 sets, daily range): BP systolic 108–155; BP diastolic 57–106; PULSE 79–98; RESP 17–31
[2017-10-20] MEDS: INSULIN ASPART [NOVOLOG] 3 ML PEN SC SCH ×6 (01:00→20:26)
[2017-10-20] MEDS: ACCU-CHEK XX SCH (01:15)
[2017-10-20] MEDS: PROPOFOL 100 ML IV SCH ×11 (02:17→23:11)
[2017-10-20] MEDS: FUROSEMIDE 40 MG INJ IV SCH ×2 (05:05→17:03)
[2017-10-20 06:51] LABS: BASOPHIL # 0.1 10^3/ul (0.0-0.1); BASOPHILS % 0.7 % (0.0-2.0); EOSINOPHILS # 0.2 10^3/ul (0.0-0.5); EOSINOPHILS % 2.7 % (0.0-7.0); HEMATOCRIT 42.2 % (42.0-52.0); HEMOGLOBIN 12.7 g/dl (14.0-18.0); LYMPHOCYTES # 1.6 10^3/ul (0.8-2.9); LYMPHOCYTES % 17.9 % (15.0-51.0); MEAN CORPUSCULAR HEMOGLOBIN 24.4 pg (29.0-33.0); MEAN CORPUSCULAR HGB CONC 30.1 g/dl (32.0-37.0); MEAN CORPUSCULAR VOLUME 81.2 fl (82.0-101.0); MEAN PLATELET VOLUME 10.3 fl (7.4-10.4); MONOCYTE # 1.1 10^3/ul (0.3-0.9); MONOCYTES % 12.9 % (0.0-11.0); NEUTROPHIL # 5.8 10^3/ul (1.6-7.5); PLATELET COUNT 305 10^3/UL (140-415); RED CELL DISTRIBUTION WIDTH 19.3 % (11.5-14.5); WHITE BLOOD COUNT 8.8 10^3/ul (4.8-10.8)
[2017-10-20 07:12] LABS: CALCIUM 8.7 mg/dl (8.4-10.2); CREATININE 0.84 mg/dl (0.61-1.24); MAGNESIUM 1.8 mg/dl (1.7-2.5); POTASSIUM 3.6 mmol/L (3.5-5.1)
--- NOTE | 2017-10-20 07:13 | RADRPT ---
PROCEDURE: XR Chest. CLINICAL INDICATION: chf TECHNIQUE: Single frontal view of the chest was obtained COMPARISON: 10/19/2017. FINDINGS: The endotracheal and enteric tubes are stable in position. The cardiomediastinal silhouette is enlarged. There is interval decreased left side pulmonary edema. The right perihilar region is without significant change. Persistent left base opacification with s ilhouetting of the left hemidiaphragm secondary to the combination of pleural effusion with atelecta sis and/or consolidation. No evidence of a pneumothorax. IMPRESSION: 1. Interval slight decreased pulmonary edema especially in the left lung. 2. Unchanged left basilar space disease. 3. Stable position of the endotracheal and enteric tubes. RPTAT: HRSR Physician Rick Date Time Electronically viewed and signed by Physician Rick on 10/20/2017 07:13 RR/
[2017-10-20 07:20] LABS: INR 1.17; PT RATIO 1.2
[2017-10-20] MEDS: EUCERIN 113 GM CR TOP SCH ×2 (09:54→20:25)
[2017-10-20] MEDS: TRIAMCINOLONE ACET 0.1% 15 GM OINT TOP SCH ×2 (09:54→20:24)
[2017-10-20] MEDS: ENOXAPARIN 100 MG/ML SYG SC SCH ×2 (09:59→20:30)
--- NOTE | 2017-10-20 11:19 | CONS ---
Date/Time of Note Date/Time of Note DATE: 10/20/17 TIME: 11:16 Assessment/Plan Assessment/Plan Additional Assessment/Plan Chest x-ray was reviewed from today which is showing improvement in pulmonary edema. Endotracheal tube is at an adequate level. Ventilator setting; AC of 18, tidal volume 550, PEEP of 5, 55% FiO2. Patient currently on propofol at 35 mics per kilogram per minute, fentanyl drip at 50 mics per hour. Assessment and recommendations; 1. Patient admitted with respiratory failure due to underlying morbid obesity with severe hypercapnia as well as congestive heart failure. 2. Significant radiological improvement. Continue current supportive care. Will obtain follow-up ABG in 24 hours. Wean down FiO2 to keep O2 saturation around 90-92%. If there is continued improvement in patient's oxygenation status he will be given a sedation vacation. Consultation Date/Type/Reason Admit Date/Time Oct 14, 2017 at 20:55 Type of Consultation: Pulmonary 24 HR Interval Summary Free Text/Dictation Patient's condition remains critical. Still requiring sedation as well as full invasive mechanical ventilation at a fairly high FiO2. Patient however has remained hemodynamically stable. General exam; division male, morbidly obese, orally intubated, sedated, currently in no distress. Exam/Review of Systems Vital Signs Vitals Vital Signs Date Time Temp Pulse Resp B/P Pulse Ox O2 Delivery O2 Flow Rate FiO2 10/20/17 10:00 84 18 137/81 93 Mechanical Ventilator 10/20/17 08:00 45 10/20/17 08:00 98.6 10/17/17 07:30 15.0 Intake and Output 10/19/17 10/19/17 10/20/17 15:00 23:00 07:00 Intake Total 1053 ml 940.10 ml 872.7 ml Output Total 2560 ml 2015 ml 1185 ml Balance -1507 ml -1074.90 ml -312.3 ml Exam HEENT exam; supple neck, JVD difficult to see because of short neck. Orally intubated. Pupils are small bilaterally. No neck masses. Chest exam; diminished breath sounds throughout. S1-S2 audible, no murmurs. Regular rhythm. Abdomen exam; protuberant. Bowel sounds are sluggish. Organomegaly difficult to feel because of massive obesity. Extremity exam; 1+ edema. 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 Results Result Diagram: 10/20/17 0635 10/20/17 0635 Results 24 hrs Laboratory Tests Test 10/19/17 20:49 10/20/17 01:14 10/20/17 05:03 10/20/17 06:35 Bedside Glucose 90 91 101 White Blood Count 8.8 Red Blood Count 5.20 Hemoglobin 12.7 L Hematocrit 42.2 Mean Corpuscular Volume 81.2 L Mean Corpuscular Hemoglobin 24.4 L Mean Corpuscular Hemoglobin Concent 30.1 L Red Cell Distribution Width 19.3 H Platelet Count 305 Mean Platelet Volume 10.3 Neutrophils % 65.0 Lymphocytes % 17.9 Monocytes % 12.9 H Eosinophils % 2.7 Basophils % 0.7 Nucleated Red Blood Cells % 0.0 Neutrophils # 5.8 Lymphocytes # 1.6 Monocytes # 1.1 H Eosinophils # 0.2 Basophils # 0.1 Nucleated Red Blood Cells # 0.0 Prothrombin Time 15.0 H Prothrombin Time Ratio 1.2 INR International Normalized Ratio 1.17 Sodium Level 144 Potassium Level 3.6 Chloride Level 97 Carbon Dioxide Level 37 H Anion Gap 14 Blood Urea Nitrogen 12 Creatinine 0.84 Glucose Level 106 Calcium Level 8.7 Magnesium Level 1.8 Test 10/20/17 09:57 Bedside Glucose 104 Medications Medications Current Medications Ondansetron HCl (Zofran Inj) 4 mg Q6H PRN IV NAUSEA AND/OR VOMITING Last administered on 10/17/17 03:01; Admin Dose 4 MG; Start 10/14/17 at 21:30 Nitroglycerin (Nitroglycerin (Sl Tab) 0.4 Mg) 1 tab Q5M PRN SL CHEST PAIN; Start 10/14/17 at 21:30 Acetaminophen (Tylenol Tab) 650 mg Q6H PRN PO PAIN LEVEL 1-3 OR FEVER Last administered on 10/17/17 01:54; Admin Dose 650 MG; Start 10/14/17 at 21:30 Enoxaparin Sodium (Lovenox) 245 mg Q12 SC Last administered on 10/20/17 09:59 ; Admin Dose 245 MG; Start 10/16/17 at 01:00 Morphine Sulfate (morphine) 2 mg Q4H PRN IV PAIN LEVEL 7-10 Last administered on 10/17/17 01:54; Admin Dose 2 MG; Start 10/16/17 at 00:00 Multi-Ingredient Ointment (Eucerin Cream) 1 applic BID TOP Last administered on 10/20/17 09:54; Admin Dose 1 APPLIC; Start 10/16/17 at 09:00 Triamcinolone Acetonide 1 applic 1 applic BID TOP Last administered on 09:54; Admin Dose 1 APPLIC; Start 10/16/17 at 14:00 Propofol (Diprivan) 100 ml @ 7.35 mls/hr Q12H IV Last administered on 09:54; Admin Dose 44.1 MLS/HR; Start 10/17/17 at 08:30 Famotidine 20 mg 20 mg HS GTB Last administered on 10/19/17 20:50; Admin Dose 20 MG; Start 10/17/17 at 21:00 Fentanyl (Sublimaze) 100 ml @ 2.5 mls/hr TITRATE IV Last administered on 10/19 18:19; Admin Dose 0.5 MLS/HR; Start 10/18/17 at 10:00 Warfarin Sodium (Coumadin) 10 mg DAILY@17 PO Last administered on 10/19/17 17 :38; Admin Dose 10 MG; Start 10/18/17 at 17:00 Lorazepam (Ativan) 2 mg Q4H PRN IV AGITATION Last administered on 10/18/17 21 :08; Admin Dose 2 MG; Start 10/18/17 at 21:00 Diagnostic Test (Pha) (Accu-Chek) 1 ea 02 XX Last administered on 10/20/17 01 :15; Admin Dose 1 EA; Start 10/20/17 at 02:00 Insulin Aspart (Novolog Insulin Pen) NOVOLOG *MILD* ALGORI... Q4 SC ; Start at 21:00 Miscellaneous Information 1 ea NOTE XX ; Start 10/19/17 at 18:00 Glucose (Glutose) 15 gm Q15M PRN PO DECREASED GLUCOSE; Start 10/19/17 at 18:00 Glucose (Glutose) 22.5 gm Q15M PRN PO DECREASED GLUCOSE; Start 10/19/17 at 18: 00 Dextrose (D50w Syringe) 25 ml Q15M PRN IV DECREASED GLUCOSE; Start 10/19/17 at 18:00 Dextrose (D50w Syringe) 50 ml Q15M PRN IV DECREASED GLUCOSE; Start 10/19/17 at 18:00 Glucagon (Glucagen) 1 mg Q15M PRN IM DECREASED GLUCOSE; Start 10/19/17 at 18: 00 Glucose (Glutose) 15 gm Q15M PRN BUCCAL DECREASED GLUCOSE; Start 10/19/17 at 18:00 GABRIEL MALDONADO Oct 20, 2017 11:19
[2017-10-20] MEDS: FENTAnyl (DRIP) 1000 mcg/100mL 100 ML IV SCH (13:18)
--- NOTE | 2017-10-20 15:39 | PN ---
Date/Time of Note Date/Time of Note DATE: 10/20/17 TIME: 15:30 Assessment/Plan VTE Prophylaxis VTE Prophylaxis Intervention: SCD's Lines/Catheters IV Catheter Type (from Nrsg): Mid Line Urinary Cath still in place: Yes Reason Cath still needed: other (indicate) (critically ill) Assessment/Plan Assessment/Plan 47 yo M with super morbid obesity, DM presented to [facility] intubated overnight for airway protection in setting of CO2 narcosis and pulmonary edema. Suspect pulmonary edema noncardiogenic in origin given TTE from within past 48 hours with just DD, already ruled out for acute AK during this hospital stay. BNP on admission normal. P/F ratio consistent with mild ARDS with P/F ~240. PLAN -low TV ventilatory management, defer to pulm -repeat BNP normal and TTE with just DD. Unlikely CHF though suppose there is relatively little risk of continuing diuretics ?possible PE: cont LMWH and warfarin bridge. consider increasing warfarin to 12.5 in AM if INR still <1.5 -per pharmacy, cannot use NOAC if BMI >40 LE wounds: sp wound care eval DM2: cont SSI though per RN hasn't yet needed any FEN: cont TFs critical care time: 30 minutes Subjective 24 Hr Interval Summary Free Text/Dictation Pt remains intubated, also remains on sedation Exam/Review of Systems Vital Signs Vitals Vital Signs Date Time Temp Pulse Resp B/P Pulse Ox O2 Delivery O2 Flow Rate FiO2 10/20/17 14:00 85 18 133/73 93 Mechanical Ventilator 10/20/17 13:09 55 10/20/17 12:00 98.2 10/17/17 07:30 15.0 Intake and Output 10/19/17 10/19/17 10/20/17 14:59 22:59 06:59 Intake Total 1004 ml 947.00 ml 912.8 ml Output Total 2500 ml 2005 ml 1255 ml Balance -1496 ml -1058.00 ml -342.2 ml Exam nad intubated distant lung sounds distant heart sounds no rashes LE unchanged net negative >8L Results Result Diagram: 10/20/17 0635 10/20/17 0635 Results 24 hrs Laboratory Tests Test 10/19/17 20:49 10/20/17 01:14 10/20/17 05:03 10/20/17 06:35 Bedside Glucose 90 91 101 White Blood Count 8.8 Red Blood Count 5.20 Hemoglobin 12.7 L Hematocrit 42.2 Mean Corpuscular Volume 81.2 L Mean Corpuscular Hemoglobin 24.4 L Mean Corpuscular Hemoglobin Concent 30.1 L Red Cell Distribution Width 19.3 H Platelet Count 305 Mean Platelet Volume 10.3 Neutrophils % 65.0 Lymphocytes % 17.9 Monocytes % 12.9 H Eosinophils % 2.7 Basophils % 0.7 Nucleated Red Blood Cells % 0.0 Neutrophils # 5.8 Lymphocytes # 1.6 Monocytes # 1.1 H Eosinophils # 0.2 Basophils # 0.1 Nucleated Red Blood Cells # 0.0 Prothrombin Time 15.0 H Prothrombin Time Ratio 1.2 INR International Normalized Ratio 1.17 Sodium Level 144 Potassium Level 3.6 Chloride Level 97 Carbon Dioxide Level 37 H Anion Gap 14 Blood Urea Nitrogen 12 Creatinine 0.84 Glucose Level 106 Calcium Level 8.7 Magnesium Level 1.8 Test 10/20/17 09:57 10/20/17 13:20 Bedside Glucose 104 90 Medications Medications Current Medications Ondansetron HCl (Zofran Inj) 4 mg Q6H PRN IV NAUSEA AND/OR VOMITING Last administered on 10/17/17 03:01; Admin Dose 4 MG; Start 10/14/17 at 21:30 Nitroglycerin (Nitroglycerin (Sl Tab) 0.4 Mg) 1 tab Q5M PRN SL CHEST PAIN; Start 10/14/17 at 21:30 Acetaminophen (Tylenol Tab) 650 mg Q6H PRN PO PAIN LEVEL 1-3 OR FEVER Last administered on 10/17/17 01:54; Admin Dose 650 MG; Start 10/14/17 at 21:30 Enoxaparin Sodium (Lovenox) 245 mg Q12 SC Last administered on 10/20/17 09:59 ; Admin Dose 245 MG; Start 10/16/17 at 01:00 Morphine Sulfate (morphine) 2 mg Q4H PRN IV PAIN LEVEL 7-10 Last administered on 10/17/17 01:54; Admin Dose 2 MG; Start 10/16/17 at 00:00 Multi-Ingredient Ointment (Eucerin Cream) 1 applic BID TOP Last administered on 10/20/17 09:54; Admin Dose 1 APPLIC; Start 10/16/17 at 09:00 Triamcinolone Acetonide 1 applic 1 applic BID TOP Last administered on 09:54; Admin Dose 1 APPLIC; Start 10/16/17 at 14:00 Propofol (Diprivan) 100 ml @ 7.35 mls/hr Q12H IV Last administered on 15:10; Admin Dose 44.1 MLS/HR; Start 10/17/17 at 08:30 Famotidine 20 mg 20 mg HS GTB Last administered on 10/19/17 20:50; Admin Dose 20 MG; Start 10/17/17 at 21:00 Fentanyl (Sublimaze) 100 ml @ 2.5 mls/hr TITRATE IV Last administered on 10/20 13:18; Admin Dose 0.5 MLS/HR; Start 10/18/17 at 10:00 Warfarin Sodium (Coumadin) 10 mg DAILY@17 PO Last administered on 10/19/17 17 :38; Admin Dose 10 MG; Start 10/18/17 at 17:00 Lorazepam (Ativan) 2 mg Q4H PRN IV AGITATION Last administered on 10/18/17 21 :08; Admin Dose 2 MG; Start 10/18/17 at 21:00 Diagnostic Test (Pha) (Accu-Chek) 1 ea 02 XX Last administered on 10/20/17 01 :15; Admin Dose 1 EA; Start 10/20/17 at 02:00 Insulin Aspart (Novolog Insulin Pen) NOVOLOG *MILD* ALGORI... Q4 SC ; Start at 21:00 Miscellaneous Information 1 ea NOTE XX ; Start 10/19/17 at 18:00 Glucose (Glutose) 15 gm Q15M PRN PO DECREASED GLUCOSE; Start 10/19/17 at 18:00 Glucose (Glutose) 22.5 gm Q15M PRN PO DECREASED GLUCOSE; Start 10/19/17 at 18: 00 Dextrose (D50w Syringe) 25 ml Q15M PRN IV DECREASED GLUCOSE; Start 10/19/17 at 18:00 Dextrose (D50w Syringe) 50 ml Q15M PRN IV DECREASED GLUCOSE; Start 10/19/17 at 18:00 Glucagon (Glucagen) 1 mg Q15M PRN IM DECREASED GLUCOSE; Start 10/19/17 at 18: 00 Glucose (Glutose) 15 gm Q15M PRN BUCCAL DECREASED GLUCOSE; Start 10/19/17 at 18:00 LEXII LADD MD Oct 20, 2017 15:39
[2017-10-20] MEDS: WARFARIN 10 MG TAB PO SCH (17:04)
[2017-10-20] MEDS: FAMOTIDINE 20 MG TAB GTB SCH (20:24)
[2017-10-21] VITALS (68 sets, daily range): BP systolic 112–133; BP diastolic 63–88; PULSE 83–101; RESP 18–31
[2017-10-21] MEDS: ACCU-CHEK XX SCH (00:42)
[2017-10-21] MEDS: INSULIN ASPART [NOVOLOG] 3 ML PEN SC SCH ×6 (00:42→20:58)
[2017-10-21] MEDS: PROPOFOL 100 ML IV SCH ×7 (02:04→18:18)
[2017-10-21 05:02] LABS: BASOPHIL # 0.1 10^3/ul (0.0-0.1); BASOPHILS % 0.5 % (0.0-2.0); EOSINOPHILS # 0.3 10^3/ul (0.0-0.5); EOSINOPHILS % 2.8 % (0.0-7.0); HEMATOCRIT 40.4 % (42.0-52.0); HEMOGLOBIN 12.2 g/dl (14.0-18.0); LYMPHOCYTES # 1.8 10^3/ul (0.8-2.9); LYMPHOCYTES % 17.8 % (15.0-51.0); MEAN CORPUSCULAR HEMOGLOBIN 24.5 pg (29.0-33.0); MEAN CORPUSCULAR HGB CONC 30.2 g/dl (32.0-37.0); MEAN CORPUSCULAR VOLUME 81.3 fl (82.0-101.0); MONOCYTE # 1.4 10^3/ul (0.3-0.9); MONOCYTES % 13.9 % (0.0-11.0); NEUTROPHIL # 6.5 10^3/ul (1.6-7.5); NEUTROPHILS % 64.2 % (39.0-77.0); PLATELET COUNT 296 10^3/UL (140-415); RED BLOOD COUNT 4.97 10^6/ul (4.70-6.10); RED CELL DISTRIBUTION WIDTH 19.4 % (11.5-14.5); WHITE BLOOD COUNT 10.1 10^3/ul (4.8-10.8)
[2017-10-21 05:22] LABS: INR 1.13; PROTIME 14.5 Sec (12.2-14.2); PT RATIO 1.1
[2017-10-21] MEDS: FUROSEMIDE 40 MG INJ IV SCH ×2 (05:27→18:00)
[2017-10-21 05:31] LABS: CALCIUM 8.6 mg/dl (8.4-10.2); CREATININE 0.86 mg/dl (0.61-1.24); POTASSIUM 3.7 mmol/L (3.5-5.1)
[2017-10-21] MEDS: FENTAnyl (DRIP) 1000 mcg/100mL 100 ML IV SCH (07:39)
--- NOTE | 2017-10-21 08:12 | RADRPT ---
PROCEDURE: XR Chest. CLINICAL INDICATION: CHF. TECHNIQUE: Single frontal view of the chest was obtained. COMPARISON: 10/20/2017. FINDINGS: Endotracheal tube and enteric tube appear stable in position. The cardiomediastinal silhouette demonstrates enlargement of the cardiac silhouette. Interval increase in pulmonary edema. There is also increasing small left pleural effusion with left basilar opacity. No definite pneumothorax. No acute osseous abnormality. IMPRESSION: 1. Cardiomegaly with interval increase in pulmonary edema. Increasing small left pleural effusion wi th left basilar opacity. 2. Stable support tubes. RPTAT: GG Rah Gold Physician Date Time Electronically viewed and signed by Rah Gold Physician on 10/21/2017 08:12 PH/
[2017-10-21 08:35] LABS: AADO2 Arterial 245.7 mmHg (7.0-24.0); Allen Test ACCEPTAB; Arterial Base Excess 9.8 mmol/L (-3.0-3); Arterial COHb 0.7 % (0.0-3.0); Arterial Fraction of Oxyhgb 95.4 % (93.0-99.0); Arterial HCO3 35.8 mmol/L (22.0-26.0); Arterial MetHb 0.1 % (0.0-1.5); Arterial Total Hemglobin 13.5 g/dl (12.0-18.0); MODE VENT - AC
[2017-10-21] MEDS: ENOXAPARIN 100 MG/ML SYG SC SCH ×2 (09:01→20:55)
[2017-10-21] MEDS: EUCERIN 113 GM CR TOP SCH ×2 (09:06→20:58)
[2017-10-21] MEDS: TRIAMCINOLONE ACET 0.1% 15 GM OINT TOP SCH ×2 (09:06→20:58)
--- NOTE | 2017-10-21 09:19 | CONS ---
Date/Time of Note Date/Time of Note DATE: 10/21/17 TIME: 09:14 Assessment/Plan Assessment/Plan Additional Assessment/Plan Massive obesity Pulmonary edema worsening Congestive heart failure Sepsis syndrome Fluid and electrolyte abnormalities Hypoxic respiratory failure We will contact family members today and schedule a family conference however I have until the family went back to [place]. Either or today alcohol patient's next of kin or agent to establish CODE STATUS. Consultation Date/Type/Reason Admit Date/Time Oct 14, 2017 at 20:55 Past Surgical History Past Surgical Hx: no surgical history Social History Alcohol Use: none Smoking Status: Former smoker Drug Use: marijuana Exam/Review of Systems Vital Signs Vitals Vital Signs Date Time Temp Pulse Resp B/P Pulse Ox O2 Delivery O2 Flow Rate FiO2 10/21/17 06:00 95 20 123/72 92 Mechanical Ventilator 10/21/17 05:00 55 10/21/17 04:00 99.5 10/17/17 07:30 15.0 Intake and Output 10/20/17 10/20/17 10/21/17 15:00 23:00 07:00 Intake Total 812 ml 892.4 ml 812.8 ml Output Total 1290 ml 1915 ml 1005 ml Balance -478 ml -1022.6 ml -192.2 ml Exam Constitutional: other (Intubated sedated) Head: atraumatic, hematomas, lacerations, normocephalic, other Neck: bruits, jvd, masses, non-tender, nuchal rigidity, other, supple, thyromegaly Cardiovascular: S3, S4, bruits, diastolic murmur, edema, gallop, irregular rhythm, jugular venous distention (JVD), murmurs/extra sounds, nl pulses, other , regular rate and rhythm, rub, systolic murmur Results Result Diagram: 10/21/17 0410 10/21/17 0410 Results 24 hrs Laboratory Tests Test 10/20/17 09:57 10/20/17 13:20 10/20/17 17:01 10/20/17 20:26 Bedside Glucose 104 90 95 105 Test 10/21/17 00:42 10/21/17 04:10 10/21/17 05:26 10/21/17 08:00 Bedside Glucose 116 93 White Blood Count 10.1 Red Blood Count 4.97 Hemoglobin 12.2 L Hematocrit 40.4 L Mean Corpuscular Volume 81.3 L Mean Corpuscular Hemoglobin 24.5 L Mean Corpuscular Hemoglobin Concent 30.2 L Red Cell Distribution Width 19.4 H Platelet Count 296 Mean Platelet Volume 10.0 Neutrophils % 64.2 Lymphocytes % 17.8 Monocytes % 13.9 H Eosinophils % 2.8 Basophils % 0.5 Nucleated Red Blood Cells % 0.0 Neutrophils # 6.5 Lymphocytes # 1.8 Monocytes # 1.4 H Eosinophils # 0.3 Basophils # 0.1 Nucleated Red Blood Cells # 0.0 Prothrombin Time 14.5 H Prothrombin Time Ratio 1.1 INR International Normalized Ratio 1.13 Sodium Level 144 Potassium Level 3.7 Chloride Level 97 Carbon Dioxide Level 39 H Anion Gap 12 Blood Urea Nitrogen 13 Creatinine 0.86 Glucose Level 115 Calcium Level 8.6 Blood Gas Specimen Source Blood arterial Arterial Blood Date Drawn 10/21/2017 8:20:30 AM Arterial Blood pH (Temp corrected) 7.440 Arterial Blood pCO2 (Temp correct) 53.9 H Arterial Blood pO2 (Temp corrected) 86.5 Arterial Blood HCO3 35.8 H Arterial Blood Base Excess 9.8 H Arterial Blood Oxygen Saturation 96.2 Danyel Test ACCEPTAB Arterial Blood Gas Puncture Site Right Radial Arterial Blood Carboxyhemoglobin 0.7 Arterial Blood Methemoglobin 0.1 Blood Gas A-a O2 Differential 245.7 H Oxyhemoglobin Percent 95.4 Total Hemoglobin 13.5 Blood Gas Temperature 37.0 Blood Gas Respiration Rate 18.0 Blood Gas Actual Respiration Rate 20 Blood Gas Modality VENT - AC FiO2 55.0 Blood Gas Tidal Volume 550.0 Blood Gas Low PEEP Setting 5.0 Blood Gas Notified Whom JLD Blood Gas Notified Time 10/21/2017 8:35:16 AM Test 10/21/17 08:57 Bedside Glucose 106 Medications Medications Current Medications Ondansetron HCl (Zofran Inj) 4 mg Q6H PRN IV NAUSEA AND/OR VOMITING Last administered on 10/17/17 03:01; Admin Dose 4 MG; Start 10/14/17 at 21:30 Nitroglycerin (Nitroglycerin (Sl Tab) 0.4 Mg) 1 tab Q5M PRN SL CHEST PAIN; Start 10/14/17 at 21:30 Acetaminophen (Tylenol Tab) 650 mg Q6H PRN PO PAIN LEVEL 1-3 OR FEVER Last administered on 10/17/17 01:54; Admin Dose 650 MG; Start 10/14/17 at 21:30 Enoxaparin Sodium (Lovenox) 245 mg Q12 SC Last administered on 10/21/17 09:01 ; Admin Dose 245 MG; Start 10/16/17 at 01:00 Morphine Sulfate (morphine) 2 mg Q4H PRN IV PAIN LEVEL 7-10 Last administered on 10/17/17 01:54; Admin Dose 2 MG; Start 10/16/17 at 00:00 Multi-Ingredient Ointment (Eucerin Cream) 1 applic BID TOP Last administered on 10/21/17 09:06; Admin Dose 1 APPLIC; Start 10/16/17 at 09:00 Triamcinolone Acetonide 1 applic 1 applic BID TOP Last administered on 09:06; Admin Dose 1 APPLIC; Start 10/16/17 at 14:00 Propofol (Diprivan) 100 ml @ 7.35 mls/hr Q12H IV Last administered on 08:37; Admin Dose 44.1 MLS/HR; Start 10/17/17 at 08:30 Famotidine 20 mg 20 mg HS GTB Last administered on 10/20/17 20:24; Admin Dose 20 MG; Start 10/17/17 at 21:00 Fentanyl (Sublimaze) 100 ml @ 2.5 mls/hr TITRATE IV Last administered on 10/21 07:39; Admin Dose 5 MLS/HR; Start 10/18/17 at 10:00 Warfarin Sodium (Coumadin) 10 mg DAILY@17 PO Last administered on 10/20/17 17 :04; Admin Dose 10 MG; Start 10/18/17 at 17:00 Lorazepam (Ativan) 2 mg Q4H PRN IV AGITATION Last administered on 10/18/17 21 :08; Admin Dose 2 MG; Start 10/18/17 at 21:00 Diagnostic Test (Pha) (Accu-Chek) 1 ea 02 XX Last administered on 10/20/17 01 :15; Admin Dose 1 EA; Start 10/20/17 at 02:00 Insulin Aspart (Novolog Insulin Pen) NOVOLOG *MILD* ALGORI... Q4 SC ; Start at 21:00 Miscellaneous Information 1 ea NOTE XX ; Start 10/19/17 at 18:00 Glucose (Glutose) 15 gm Q15M PRN PO DECREASED GLUCOSE; Start 10/19/17 at 18:00 Glucose (Glutose) 22.5 gm Q15M PRN PO DECREASED GLUCOSE; Start 10/19/17 at 18: 00 Dextrose (D50w Syringe) 25 ml Q15M PRN IV DECREASED GLUCOSE; Start 10/19/17 at 18:00 Dextrose (D50w Syringe) 50 ml Q15M PRN IV DECREASED GLUCOSE; Start 10/19/17 at 18:00 Glucagon (Glucagen) 1 mg Q15M PRN IM DECREASED GLUCOSE; Start 10/19/17 at 18: 00 Glucose (Glutose) 15 gm Q15M PRN BUCCAL DECREASED GLUCOSE; Start 10/19/17 at 18:00 JACK FONTENOT Oct 21, 2017 09:19
--- NOTE | 2017-10-21 09:32 | CONS ---
Date/Time of Note Date/Time of Note DATE: 10/21/17 TIME: 09:28 Consult Date/Type/Reason Admit Date/Time Oct 14, 2017 at 20:55 Type of Consultation: Pulmonary Subjective Remains intubated sedated on mechanical ventilation, continue 60% FiO2. Currently hemodynamically stable. Objective Vital Signs Date Time Temp Pulse Resp B/P Pulse Ox O2 Delivery O2 Flow Rate FiO2 10/21/17 06:00 95 20 123/72 92 Mechanical Ventilator 10/21/17 05:00 55 10/21/17 04:00 99.5 10/17/17 07:30 15.0 Intake and Output 10/20/17 10/20/17 10/21/17 15:00 23:00 07:00 Intake Total 812 ml 892.4 ml 812.8 ml Output Total 1290 ml 1915 ml 1005 ml Balance -478 ml -1022.6 ml -192.2 ml Exam GENERAL: Morbidly obese gentleman intubated on mechanical ventilation. VITAL SIGNS: per chart NECK: Supple. No JVD or lymphadenopathy. CARDIAC EXAM: S1, S2. No added sounds or murmurs. CHEST: Diminished air entry bilaterally with rales right base. ABDOMEN: Soft, nontender. No guarding or rebound. EXTREMITIES: No cyanosis, clubbing or edema. NEUROLOGIC: Generalized weakness. No focal deficits. Results/Medications Result Diagram: 10/21/1740910/21/17 041 Results 24 hrs Chest x-ray demonstrates extensive bilateral infiltrates. Laboratory Tests Test 10/20/17 09:57 10/20/17 13:20 10/20/17 17:01 10/20/17 20:26 Bedside Glucose 104 90 95 105 Test 10/21/17 00:42 10/21/17 04:10 10/21/17 05:26 10/21/17 08:00 Bedside Glucose 116 93 White Blood Count 10.1 Red Blood Count 4.97 Hemoglobin 12.2 L Hematocrit 40.4 L Mean Corpuscular Volume 81.3 L Mean Corpuscular Hemoglobin 24.5 L Mean Corpuscular Hemoglobin Concent 30.2 L Red Cell Distribution Width 19.4 H Platelet Count 296 Mean Platelet Volume 10.0 Neutrophils % 64.2 Lymphocytes % 17.8 Monocytes % 13.9 H Eosinophils % 2.8 Basophils % 0.5 Nucleated Red Blood Cells % 0.0 Neutrophils # 6.5 Lymphocytes # 1.8 Monocytes # 1.4 H Eosinophils # 0.3 Basophils # 0.1 Nucleated Red Blood Cells # 0.0 Prothrombin Time 14.5 H Prothrombin Time Ratio 1.1 INR International Normalized Ratio 1.13 Sodium Level 144 Potassium Level 3.7 Chloride Level 97 Carbon Dioxide Level 39 H Anion Gap 12 Blood Urea Nitrogen 13 Creatinine 0.86 Glucose Level 115 Calcium Level 8.6 Blood Gas Specimen Source Blood arterial Arterial Blood Date Drawn 10/21/2017 8:20:30 AM Arterial Blood pH (Temp corrected) 7.440 Arterial Blood pCO2 (Temp correct) 53.9 H Arterial Blood pO2 (Temp corrected) 86.5 Arterial Blood HCO3 35.8 H Arterial Blood Base Excess 9.8 H Arterial Blood Oxygen Saturation 96.2 Danyel Test ACCEPTAB Arterial Blood Gas Puncture Site Right Radial Arterial Blood Carboxyhemoglobin 0.7 Arterial Blood Methemoglobin 0.1 Blood Gas A-a O2 Differential 245.7 H Oxyhemoglobin Percent 95.4 Total Hemoglobin 13.5 Blood Gas Temperature 37.0 Blood Gas Respiration Rate 18.0 Blood Gas Actual Respiration Rate 20 Blood Gas Modality VENT - AC FiO2 55.0 Blood Gas Tidal Volume 550.0 Blood Gas Low PEEP Setting 5.0 Blood Gas Notified Whom JLD Blood Gas Notified Time 10/21/2017 8:35:16 AM Test 10/21/17 08:57 Bedside Glucose 106 Medications Current Medications Ondansetron HCl (Zofran Inj) 4 mg Q6H PRN IV NAUSEA AND/OR VOMITING Last administered on 10/17/17 03:01; Admin Dose 4 MG; Start 10/14/17 at 21:30 Nitroglycerin (Nitroglycerin (Sl Tab) 0.4 Mg) 1 tab Q5M PRN SL CHEST PAIN; Start 10/14/17 at 21:30 Acetaminophen (Tylenol Tab) 650 mg Q6H PRN PO PAIN LEVEL 1-3 OR FEVER Last administered on 10/17/17 01:54; Admin Dose 650 MG; Start 10/14/17 at 21:30 Enoxaparin Sodium (Lovenox) 245 mg Q12 SC Last administered on 10/21/17 09:01 ; Admin Dose 245 MG; Start 10/16/17 at 01:00 Morphine Sulfate (morphine) 2 mg Q4H PRN IV PAIN LEVEL 7-10 Last administered on 10/17/17 01:54; Admin Dose 2 MG; Start 10/16/17 at 00:00 Multi-Ingredient Ointment (Eucerin Cream) 1 applic BID TOP Last administered on 10/21/17 09:06; Admin Dose 1 APPLIC; Start 10/16/17 at 09:00 Triamcinolone Acetonide 1 applic 1 applic BID TOP Last administered on 09:06; Admin Dose 1 APPLIC; Start 10/16/17 at 14:00 Propofol (Diprivan) 100 ml @ 7.35 mls/hr Q12H IV Last administered on 08:37; Admin Dose 44.1 MLS/HR; Start 10/17/17 at 08:30 Famotidine 20 mg 20 mg HS GTB Last administered on 10/20/17 20:24; Admin Dose 20 MG; Start 10/17/17 at 21:00 Fentanyl (Sublimaze) 100 ml @ 2.5 mls/hr TITRATE IV Last administered on 10/21 07:39; Admin Dose 5 MLS/HR; Start 10/18/17 at 10:00 Warfarin Sodium (Coumadin) 10 mg DAILY@17 PO Last administered on 10/20/17 17 :04; Admin Dose 10 MG; Start 10/18/17 at 17:00 Lorazepam (Ativan) 2 mg Q4H PRN IV AGITATION Last administered on 10/18/17 21 :08; Admin Dose 2 MG; Start 10/18/17 at 21:00 Diagnostic Test (Pha) (Accu-Chek) 1 ea 02 XX Last administered on 10/20/17 01 :15; Admin Dose 1 EA; Start 10/20/17 at 02:00 Insulin Aspart (Novolog Insulin Pen) NOVOLOG *MILD* ALGORI... Q4 SC ; Start at 21:00 Miscellaneous Information 1 ea NOTE XX ; Start 10/19/17 at 18:00 Glucose (Glutose) 15 gm Q15M PRN PO DECREASED GLUCOSE; Start 10/19/17 at 18:00 Glucose (Glutose) 22.5 gm Q15M PRN PO DECREASED GLUCOSE; Start 10/19/17 at 18: 00 Dextrose (D50w Syringe) 25 ml Q15M PRN IV DECREASED GLUCOSE; Start 10/19/17 at 18:00 Dextrose (D50w Syringe) 50 ml Q15M PRN IV DECREASED GLUCOSE; Start 10/19/17 at 18:00 Glucagon (Glucagen) 1 mg Q15M PRN IM DECREASED GLUCOSE; Start 10/19/17 at 18: 00 Glucose 15 gm 15 gm Q15M PRN BUCCAL DECREASED GLUCOSE; Start 10/19/17 at 18:00 Midazolam HCl (Versed) 50 ml @ 1 mls/hr TITRATE IV ; Start 10/21/17 at 09:30 Assessment/Plan Chief Complaint/Hosp Course IMPRESSION 1. Acute on chronic hypercapnic respiratory failure.Pulmonary edema and possible pneumonia. 2. Morbid obesity. 3. Likely diastolic dysfunction.pulmonary edema. 4. Possible thromboembolic disease. Unable to exclude thromboembolic disease given morbid obesity. Elevated D-dimers. PLAN: 1. Continue anticoagulation for deep vein thrombosis. Continue anticoagulation 2. Mechanical ventilation. Additional fentanyl for agitation. Wean off propofol. 3. Bronchodilators. 4. Echocardiogram. Consider increasing diuretics 5. Deep venous thrombosis and gastrointestinal prophylaxis. Problems: BRIGETTE CODY MD, [facility] Oct 21, 2017 09:32
--- NOTE | 2017-10-21 10:50 | PN ---
Date/Time of Note Date/Time of Note DATE: 10/21/17 TIME: 10:28 Assessment/Plan VTE Prophylaxis VTE Prophylaxis Intervention: LMWH Lines/Catheters IV [facility] Type (from [facility] Saline Lock Urinary Cath still in place: Yes Reason Cath still needed: urinary retention Assessment/Plan Chief Complaint/Hosp Course Assessment/Plan: 47 yo M with super morbid obesity, DM presented to SOB intubated overnight for airway protection in setting of CO2 narcosis and pulmonary edema.P/F ratio consistent with mild ARDS with P/F ~240. 1. SOB/res failure: Acute on chronic hypercapnic respiratory failure. Pulmonary edema and possible pneumonia. Suspect pulmonary edema noncardiogenic in origin given TTE from within past 48 hours with just DD, already ruled out for acute RI during this hospital stay. BNP on admission normal. -low TV ventilatory management, defer to pulm -Continue diuretics for now 2. possible PE?: Lower extremity ultrasounds inconclusive. - cont LMWH treatment dose for now, will discontinue warfarin. Upon discussion with pharmacy and pulmonary teams, if patient able to be extubated and take oral medicines, will transition to either Eliquis or Xarelto at that time, b/c per pharmacy, even though apparently cannot use NOAC if BMI >40, recent studies do indicate checking drug specific peak and trough levels for these medicines if having to use DOAC in patients with BMI greater than 40. Given this patient' s history of noncompliance, DO AC would likely still be more beneficial to this patient versus Coumadin. 3. LE wounds: sp wound care eval DM2: cont SSI though per RN hasn't yet needed any FEN: cont TFs critical care time: 45 minutes Problems: Subjective 24 Hr Interval Summary Free Text/Dictation Still intubated, seen by pulmonary team this morning. Exam/Review of Systems Vital Signs Vitals Vital Signs Date Time Temp Pulse Resp B/P Pulse Ox O2 Delivery O2 Flow Rate FiO2 10/21/17 10:15 88 18 93 10/21/17 10:00 118/66 10/21/17 09:30 Mechanical Ventilator 10/21/17 05:00 55 10/21/17 04:00 99.5 10/17/17 07:30 15.0 Intake and Output 10/20/17 10/20/17 10/21/17 14:59 22:59 06:59 Intake Total 772 ml 792.3 ml 912.8 ml Output Total 1240 ml 1890 ml 780 ml Balance -468 ml -1097.7 ml 132.8 ml Exam Lying in bed, intubated, morbidly obese Supple distant lung sounds distant heart sounds no rashes LE unchanged Results Result Diagram: 10/21/170 10/21/170 Results 24 hrs Laboratory Tests Test 10/20/17 13:20 10/20/17 17:01 10/20/17 20:26 10/21/17 00:42 Bedside Glucose 90 95 105 116 Test 10/21/17 04:10 10/21/17 05:26 10/21/17 08:00 10/21/17 08:57 White Blood Count 10.1 Red Blood Count 4.97 Hemoglobin 12.2 L Hematocrit 40.4 L Mean Corpuscular Volume 81.3 L Mean Corpuscular Hemoglobin 24.5 L Mean Corpuscular Hemoglobin Concent 30.2 L Red Cell Distribution Width 19.4 H Platelet Count 296 Mean Platelet Volume 10.0 Neutrophils % 64.2 Lymphocytes % 17.8 Monocytes % 13.9 H Eosinophils % 2.8 Basophils % 0.5 Nucleated Red Blood Cells % 0.0 Neutrophils # 6.5 Lymphocytes # 1.8 Monocytes # 1.4 H Eosinophils # 0.3 Basophils # 0.1 Nucleated Red Blood Cells # 0.0 Prothrombin Time 14.5 H Prothrombin Time Ratio 1.1 INR International Normalized Ratio 1.13 Sodium Level 144 Potassium Level 3.7 Chloride Level 97 Carbon Dioxide Level 39 H Anion Gap 12 Blood Urea Nitrogen 13 Creatinine 0.86 Glucose Level 115 Calcium Level 8.6 Bedside Glucose 93 106 Blood Gas Specimen Source Blood arterial Arterial Blood Date Drawn 10/21/2017 8:20:30 AM Arterial Blood pH (Temp corrected) 7.440 Arterial Blood pCO2 (Temp correct) 53.9 H Arterial Blood pO2 (Temp corrected) 86.5 Arterial Blood HCO3 35.8 H Arterial Blood Base Excess 9.8 H Arterial Blood Oxygen Saturation 96.2 Danyel Test ACCEPTAB Arterial Blood Gas Puncture Site Right Radial Arterial Blood Carboxyhemoglobin 0.7 Arterial Blood Methemoglobin 0.1 Blood Gas A-a O2 Differential 245.7 H Oxyhemoglobin Percent 95.4 Total Hemoglobin 13.5 Blood Gas Temperature 37.0 Blood Gas Respiration Rate 18.0 Blood Gas Actual Respiration Rate 20 Blood Gas Modality VENT - AC FiO2 55.0 Blood Gas Tidal Volume 550.0 Blood Gas Low PEEP Setting 5.0 Blood Gas Notified Whom JLD Blood Gas Notified Time 10/21/2017 8:35:16 AM Medications Medications Current Medications Ondansetron HCl (Zofran Inj) 4 mg Q6H PRN IV NAUSEA AND/OR VOMITING Last administered on 10/17/17 03:01; Admin Dose 4 MG; Start 10/14/17 at 21:30 Nitroglycerin (Nitroglycerin (Sl Tab) 0.4 Mg) 1 tab Q5M PRN SL CHEST PAIN; Start 10/14/17 at 21:30 Acetaminophen (Tylenol Tab) 650 mg Q6H PRN PO PAIN LEVEL 1-3 OR FEVER Last administered on 10/17/17 01:54; Admin Dose 650 MG; Start 10/14/17 at 21:30 Enoxaparin Sodium (Lovenox) 245 mg Q12 SC Last administered on 10/21/17 09:01 ; Admin Dose 245 MG; Start 10/16/17 at 01:00 Morphine Sulfate (morphine) 2 mg Q4H PRN IV PAIN LEVEL 7-10 Last administered on 10/17/17 01:54; Admin Dose 2 MG; Start 10/16/17 at 00:00 Multi-Ingredient Ointment (Eucerin Cream) 1 applic BID TOP Last administered on 10/21/17 09:06; Admin Dose 1 APPLIC; Start 10/16/17 at 09:00 Triamcinolone Acetonide 1 applic 1 applic BID TOP Last administered on 09:06; Admin Dose 1 APPLIC; Start 10/16/17 at 14:00 Propofol (Diprivan) 100 ml @ 7.35 mls/hr Q12H IV Last administered on 08:37; Admin Dose 44.1 MLS/HR; Start 10/17/17 at 08:30 Famotidine 20 mg 20 mg HS GTB Last administered on 10/20/17 20:24; Admin Dose 20 MG; Start 10/17/17 at 21:00 Fentanyl (Sublimaze) 100 ml @ 2.5 mls/hr TITRATE IV Last administered on 10/21 07:39; Admin Dose 5 MLS/HR; Start 10/18/17 at 10:00 Warfarin Sodium (Coumadin) 10 mg DAILY@17 PO Last administered on 10/20/17 17 :04; Admin Dose 10 MG; Start 10/18/17 at 17:00 Lorazepam (Ativan) 2 mg Q4H PRN IV AGITATION Last administered on 10/18/17 21 :08; Admin Dose 2 MG; Start 10/18/17 at 21:00 Diagnostic Test (Pha) (Accu-Chek) 1 ea 02 XX Last administered on 10/20/17 01 :15; Admin Dose 1 EA; Start 10/20/17 at 02:00 Insulin Aspart (Novolog Insulin Pen) NOVOLOG *MILD* ALGORI... Q4 SC ; Start at 21:00 Miscellaneous Information 1 ea NOTE XX ; Start 10/19/17 at 18:00 Glucose (Glutose) 15 gm Q15M PRN PO DECREASED GLUCOSE; Start 10/19/17 at 18:00 Glucose (Glutose) 22.5 gm Q15M PRN PO DECREASED GLUCOSE; Start 10/19/17 at 18: 00 Dextrose (D50w Syringe) 25 ml Q15M PRN IV DECREASED GLUCOSE; Start 10/19/17 at 18:00 Dextrose (D50w Syringe) 50 ml Q15M PRN IV DECREASED GLUCOSE; Start 10/19/17 at 18:00 Glucagon (Glucagen) 1 mg Q15M PRN IM DECREASED GLUCOSE; Start 10/19/17 at 18: 00 Glucose 15 gm 15 gm Q15M PRN BUCCAL DECREASED GLUCOSE; Start 10/19/17 at 18:00 Midazolam HCl (Versed) 50 ml @ 1 mls/hr TITRATE IV ; Start 10/21/17 at 09:30 DOLLY ESCOBEDO Oct 21, 2017 10:50
[2017-10-21] MEDS: MIDAZOLAM (DRIP) 50 mg/50 mL 50 ML IV SCH ×2 (17:43→23:39)
[2017-10-21] MEDS: FAMOTIDINE 20 MG TAB GTB SCH (20:54)
[2017-10-22] VITALS (35 sets, daily range): BP systolic 119–158; BP diastolic 67–105; PULSE 89–115; RESP 14–32
[2017-10-22] MEDS: PROPOFOL 100 ML IV SCH ×3 (00:40→08:40)
[2017-10-22] MEDS: INSULIN ASPART [NOVOLOG] 3 ML PEN SC SCH ×5 (01:00→18:00)
[2017-10-22] MEDS: ACCU-CHEK XX SCH (01:02)
[2017-10-22] MEDS: FENTAnyl (DRIP) 1000 mcg/100mL 100 ML IV SCH ×2 (04:30→21:52)
[2017-10-22 05:19] LABS: BASOPHIL # 0.1 10^3/ul (0.0-0.1); BASOPHILS % 0.6 % (0.0-2.0); EOSINOPHILS # 0.2 10^3/ul (0.0-0.5); EOSINOPHILS % 1.9 % (0.0-7.0); HEMATOCRIT 43.5 % (42.0-52.0); HEMOGLOBIN 12.9 g/dl (14.0-18.0); LYMPHOCYTES # 1.7 10^3/ul (0.8-2.9); MEAN CORPUSCULAR HEMOGLOBIN 24.2 pg (29.0-33.0); MEAN CORPUSCULAR HGB CONC 29.7 g/dl (32.0-37.0); MEAN CORPUSCULAR VOLUME 81.8 fl (82.0-101.0); MEAN PLATELET VOLUME 9.9 fl (7.4-10.4); MONOCYTE # 1.1 10^3/ul (0.3-0.9); MONOCYTES % 12.8 % (0.0-11.0); NEUTROPHIL # 5.5 10^3/ul (1.6-7.5); NEUTROPHILS % 63.5 % (39.0-77.0); PLATELET COUNT 285 10^3/UL (140-415); RED BLOOD COUNT 5.32 10^6/ul (4.70-6.10); RED CELL DISTRIBUTION WIDTH 18.5 % (11.5-14.5); WHITE BLOOD COUNT 8.6 10^3/ul (4.8-10.8)
[2017-10-22] MEDS: FUROSEMIDE 40 MG INJ IV SCH ×2 (05:25→18:31)
[2017-10-22 05:46] LABS: CALCIUM 8.9 mg/dl (8.4-10.2); CREATININE 0.79 mg/dl (0.61-1.24); MAGNESIUM 1.9 mg/dl (1.7-2.5); PHOSPHORUS 4.3 mg/dl (2.5-4.9); POTASSIUM 4.2 mmol/L (3.5-5.1)
[2017-10-22 05:58] LABS: INR 1.15; PROTIME 14.7 Sec (12.2-14.2); PT RATIO 1.1
[2017-10-22 08:20] LABS: AADO2 Arterial 243.3 mmHg (7.0-24.0); Allen Test ACCEPTAB; Arterial Base Excess 12.8 mmol/L (-3.0-3); Arterial COHb 1.1 % (0.0-3.0); Arterial Fraction of Oxyhgb 93.5 % (93.0-99.0); Arterial HCO3 40.4 mmol/L (22.0-26.0); Arterial MetHb 0.1 % (0.0-1.5); Arterial Total Hemglobin 13.7 g/dl (12.0-18.0); MODE VENT - AC
[2017-10-22] MEDS: ENOXAPARIN 100 MG/ML SYG SC SCH ×2 (08:30→20:03)
[2017-10-22] MEDS: EUCERIN 113 GM CR TOP SCH ×2 (08:31→20:03)
[2017-10-22] MEDS: TRIAMCINOLONE ACET 0.1% 15 GM OINT TOP SCH ×2 (08:31→20:03)
[2017-10-22] MEDS: MIDAZOLAM (DRIP) 50 mg/50 mL 50 ML IV SCH ×3 (08:40→21:51)
--- NOTE | 2017-10-22 08:46 | RADRPT ---
PROCEDURE: XR Chest. CLINICAL INDICATION: CHF . TECHNIQUE: Single portable view of the chest was obtained COMPARISON: 10/21/2017. FINDINGS: Stable position of an endotracheal and nasogastric tube. Stable moderately severe cardiomegaly. Ther e is interval slight decreased pulmonary edema . Persistent left base opacification and secondary to the combination of pleural effusion with atelectasis or consolidation. No evidence of a pneumothora x. IMPRESSION: 1. Interval slight decreased pulmonary edema. 2. Unchanged persistent left base opacification secondary to the combination of pleural effusion wi th atelectasis or consolidation. 3. Stable moderately severe cardiomegaly. RPTAT: HRSR Physician Rick Date Time Electronically viewed and signed by Physician Rick on 10/22/2017 08:46 RR/
--- NOTE | 2017-10-22 10:59 | PN ---
Date/Time of Note Date/Time of Note DATE: 10/22/17 TIME: 10:55 Assessment/Plan VTE Prophylaxis VTE Prophylaxis Intervention: LMWH Lines/Catheters IV C[facility]ter Type (from [facility]): Saline Lock Urinary Cath still in place: Yes Reason Cath still needed: urinary retention Assessment/Plan Chief Complaint/Hosp Course Assessment/Plan: 47 yo M with super morbid obesity, DM presented to SOB intubated overnight for airway protection in setting of CO2 narcosis and pulmonary edema.P/F ratio consistent with mild ARDS with P/F ~240. 1. SOB/res failure: Acute on chronic hypercapnic respiratory failure. Pulmonary edema and possible pneumonia - ruled out for acute ID during this hospital stay. BNP on admission normal. -low TV ventilatory management, defer to pulm -have slightly lowered FiO2 today. -Continue diuretics for now 2. possible PE?: Lower extremity ultrasounds inconclusive. - cont LMWH treatment dose for now, have discontinued warfarin. Upon discussion with pharmacy and pulmonary teams, if patient able to be extubated and take oral medicines, will transition to either Eliquis or Xarelto at that time, b/c per pharmacy, even though apparently cannot use NOAC if BMI >40, recent studies do indicate checking drug specific peak and trough levels for these medicines if having to use DOAC in patients with BMI greater than 40. Given this patient' s history of noncompliance, DO AC would likely be more beneficial to this patient versus Coumadin. 3. LE wounds: sp wound care eval DM2: cont SSI though per RN hasn't yet needed any FEN: cont TFs critical care time: 45 minutes Problems: Subjective 24 Hr Interval Summary Free Text/Dictation Patient still intubated, seen by pulmonary team this morning. Exam/Review of Systems Vital Signs Vitals Vital Signs Date Time Temp Pulse Resp B/P Pulse Ox O2 Delivery O2 Flow Rate FiO2 10/22/17 10:00 95 19 133/76 92 Mechanical Ventilator 10/22/17 08:00 55 10/22/17 08:00 99.4 Intake and Output 10/21/17 10/21/17 10/22/17 15:00 23:00 07:00 Intake Total 812.8 ml 878.30 ml 666.40 ml Output Total 510 ml 1420 ml 810 ml Balance 302.8 ml -541.70 ml -143.60 ml Exam Lying in bed, intubated, morbidly obese Supple distant lung sounds distant heart sounds no rashes LE unchanged Results Result Diagram: 10/22/17 0448 10/22/17 0448 Results 24 hrs Laboratory Tests Test 10/21/17 13:32 10/21/17 17:50 10/21/17 20:54 10/22/17 00:44 Bedside Glucose 97 91 100 98 Test 10/22/17 04:48 10/22/17 05:29 10/22/17 07:00 10/22/17 08:28 White Blood Count 8.6 Red Blood Count 5.32 Hemoglobin 12.9 L Hematocrit 43.5 Mean Corpuscular Volume 81.8 L Mean Corpuscular Hemoglobin 24.2 L Mean Corpuscular Hemoglobin Concent 29.7 L Red Cell Distribution Width 18.5 H Platelet Count 285 Mean Platelet Volume 9.9 Neutrophils % 63.5 Lymphocytes % 20.0 Monocytes % 12.8 H Eosinophils % 1.9 Basophils % 0.6 Nucleated Red Blood Cells % 0.0 Neutrophils # 5.5 Lymphocytes # 1.7 Monocytes # 1.1 H Eosinophils # 0.2 Basophils # 0.1 Nucleated Red Blood Cells # 0.0 Prothrombin Time 14.7 H Prothrombin Time Ratio 1.1 INR International Normalized Ratio 1.15 Sodium Level 144 Potassium Level 4.2 Chloride Level 97 Carbon Dioxide Level Anion Gap 11 Blood Urea Nitrogen 16 Creatinine 0.79 Glucose Level 133 Calcium Level 8.9 Phosphorus Level 4.3 Magnesium Level 1.9 Bedside Glucose 113 100 Blood Gas Specimen Source Blood arterial Arterial Blood Date Drawn 10/22/2017 7:50:04 AM Arterial Blood pH (Temp corrected) 7.408 Arterial Blood pCO2 (Temp correct) 65.5 H Arterial Blood pO2 (Temp corrected) 76.0 L Arterial Blood HCO3 40.4 *H Arterial Blood Base Excess 12.8 H Arterial Blood Oxygen Saturation 94.6 L Danyel Test ACCEPTAB Arterial Blood Gas Puncture Site Right Radial Arterial Blood Carboxyhemoglobin 1.1 Arterial Blood Methemoglobin 0.1 Blood Gas A-a O2 Differential 243.3 H Oxyhemoglobin Percent 93.5 Total Hemoglobin 13.7 Blood Gas Temperature 37.0 Blood Gas Respiration Rate 18.0 Blood Gas Actual Respiration Rate 22 Blood Gas Modality VENT - AC FiO2 55.0 Blood Gas Tidal Volume 550.0 Blood Gas Low PEEP Setting 5.0 Blood Gas Critical Value Read Back H MARSHA RN Blood Gas Notified Whom JLD Blood Gas Notified Time 10/22/2017 8:20:54 AM Medications Medications Current Medications Ondansetron HCl (Zofran Inj) 4 mg Q6H PRN IV NAUSEA AND/OR VOMITING Last administered on 10/17/17 03:01; Admin Dose 4 MG; Start 10/14/17 at 21:30 Nitroglycerin (Nitroglycerin (Sl Tab) 0.4 Mg) 1 tab Q5M PRN SL CHEST PAIN; Start 10/14/17 at 21:30 Acetaminophen (Tylenol Tab) 650 mg Q6H PRN PO PAIN LEVEL 1-3 OR FEVER Last administered on 10/17/17 01:54; Admin Dose 650 MG; Start 10/14/17 at 21:30 Enoxaparin Sodium (Lovenox) 245 mg Q12 SC Last administered on 10/22/17 08:30 ; Admin Dose 245 MG; Start 10/16/17 at 01:00 Morphine Sulfate (morphine) 2 mg Q4H PRN IV PAIN LEVEL 7-10 Last administered on 10/17/17 01:54; Admin Dose 2 MG; Start 10/16/17 at 00:00 Multi-Ingredient Ointment (Eucerin Cream) 1 applic BID TOP Last administered on 10/22/17 08:31; Admin Dose 1 APPLIC; Start 10/16/17 at 09:00 Triamcinolone Acetonide 1 applic 1 applic BID TOP Last administered on 08:31; Admin Dose 1 APPLIC; Start 10/16/17 at 14:00 Propofol (Diprivan) 100 ml @ 7.35 mls/hr Q12H IV Last administered on 08:40; Admin Dose 22.05 MLS/HR; Start 10/17/17 at 08:30 Famotidine 20 mg 20 mg HS GTB Last administered on 10/21/17 20:54; Admin Dose 20 MG; Start 10/17/17 at 21:00 Fentanyl (Sublimaze) 100 ml @ 2.5 mls/hr TITRATE IV Last administered on 10/22 04:30; Admin Dose 5 MLS/HR; Start 10/18/17 at 10:00 Lorazepam (Ativan) 2 mg Q4H PRN IV AGITATION Last administered on 10/18/17 21 :08; Admin Dose 2 MG; Start 10/18/17 at 21:00 Diagnostic Test (Pha) (Accu-Chek) 1 ea 02 XX Last administered on 10/22/17 01 :02; Admin Dose 1 EA; Start 10/20/17 at 02:00 Miscellaneous Information 1 ea NOTE XX ; Start 10/19/17 at 18:00 Glucose (Glutose) 15 gm Q15M PRN PO DECREASED GLUCOSE; Start 10/19/17 at 18:00 Glucose (Glutose) 22.5 gm Q15M PRN PO DECREASED GLUCOSE; Start 10/19/17 at 18: 00 Dextrose (D50w Syringe) 25 ml Q15M PRN IV DECREASED GLUCOSE; Start 10/19/17 at 18:00 Dextrose (D50w Syringe) 50 ml Q15M PRN IV DECREASED GLUCOSE; Start 10/19/17 at 18:00 Glucagon (Glucagen) 1 mg Q15M PRN IM DECREASED GLUCOSE; Start 10/19/17 at 18: 00 Glucose 15 gm 15 gm Q15M PRN BUCCAL DECREASED GLUCOSE; Start 10/19/17 at 18:00 Midazolam HCl (Versed) 50 ml @ 1 mls/hr TITRATE IV Last administered on 08:40; Admin Dose 7 MLS/HR; Start 10/21/17 at 09:30 Insulin Aspart (Novolog Insulin Pen) NOVOLOG *MILD* ALGORI... Q6 SC ; Start at 12:00 DOLLY ESCOBEDO Oct 22, 2017 10:59
[2017-10-22] MEDS ORDERED: LIDOCAINE 1% (MPF) 5 ML VIAL SC ONE (11:00)
--- NOTE | 2017-10-22 12:56 | CONS ---
Date/Time of Note Date/Time of Note DATE: 10/22/17 TIME: 12:53 Assessment/Plan Assessment/Plan Additional Assessment/Plan Ventilator setting; AC of 18, tidal volume 550, PEEP of 5, 55% FiO2. Patient currently on propofol at 15 mics per kilogram per minute. Chest x-ray was reviewed from today which is showing improving bilateral pulmonary edema. Assessment and recommendations; 1. Patient admitted for hypercapnic respiratory failure due to likely underlying severe sleep apnea with obesity/hypoventilation syndrome. 2. CHF with radiological improvement. 3. Underlying morbid obesity. 4. Possibly chronic thromboembolic disease. Decrease FiO2 to keep O2 saturation around 88-92%. Once the patient is down to an acceptable FiO2 he will be given a sedation vacation to assess for weaning from ventilator. Prognosis is guarded. Meanwhile continue current supportive care. Consultation Date/Type/Reason Admit Date/Time Oct 14, 2017 at 20:55 Type of Consultation: Pulmonary 24 HR Interval Summary Free Text/Dictation Patient's condition remains critical. Remains sedated. Has remained hemodynamically stable. General exam; young male, morbidly obese, orally intubated, sedated, currently in no distress. Exam/Review of Systems Vital Signs Vitals Vital Signs Date Time Temp Pulse Resp B/P Pulse Ox O2 Delivery O2 Flow Rate FiO2 10/22/17 12:00 98.8 105 22 151/93 93 Mechanical Ventilator 10/22/17 11:05 45 Intake and Output 10/21/17 10/21/17 10/22/17 15:00 23:00 07:00 Intake Total 812.8 ml 878.30 ml 700.45 ml Output Total 510 ml 1420 ml 810 ml Balance 302.8 ml -541.70 ml -109.55 ml Exam HEENT exam; supple neck, JVD difficult to see because of short neck. Orally intubated. Patient has fair dentition. Pupils are midsize and reactive to light. Chest exam; diminished breath sounds throughout. S1-S2 audible, no murmurs. Regular rhythm. Abdomen exam; protuberant. Bowel sounds audible. Organomegaly difficult to assess. Extremity exam; trace edema. HAND MOLDER exam; patient is sedated. Results Result Diagram: 10/22/17 0448 10/22/17 0448 Results 24 hrs Laboratory Tests Test 10/21/17 13:32 10/21/17 17:50 10/21/17 20:54 10/22/17 00:44 Bedside Glucose 97 91 100 98 Test 10/22/17 04:48 10/22/17 05:29 10/22/17 07:00 10/22/17 08:28 White Blood Count 8.6 Red Blood Count 5.32 Hemoglobin 12.9 L Hematocrit 43.5 Mean Corpuscular Volume 81.8 L Mean Corpuscular Hemoglobin 24.2 L Mean Corpuscular Hemoglobin Concent 29.7 L Red Cell Distribution Width 18.5 H Platelet Count 285 Mean Platelet Volume 9.9 Neutrophils % 63.5 Lymphocytes % 20.0 Monocytes % 12.8 H Eosinophils % 1.9 Basophils % 0.6 Nucleated Red Blood Cells % 0.0 Neutrophils # 5.5 Lymphocytes # 1.7 Monocytes # 1.1 H Eosinophils # 0.2 Basophils # 0.1 Nucleated Red Blood Cells # 0.0 Prothrombin Time 14.7 H Prothrombin Time Ratio 1.1 INR International Normalized Ratio 1.15 Sodium Level 144 Potassium Level 4.2 Chloride Level 97 Carbon Dioxide Level Anion Gap 11 Blood Urea Nitrogen 16 Creatinine 0.79 Glucose Level 133 Calcium Level 8.9 Phosphorus Level 4.3 Magnesium Level 1.9 Bedside Glucose 113 100 Blood Gas Specimen Source Blood arterial Arterial Blood Date Drawn 10/22/2017 7:50:04 AM Arterial Blood pH (Temp corrected) 7.408 Arterial Blood pCO2 (Temp correct) 65.5 H Arterial Blood pO2 (Temp corrected) 76.0 L Arterial Blood HCO3 40.4 *H Arterial Blood Base Excess 12.8 H Arterial Blood Oxygen Saturation 94.6 L Danyel Test ACCEPTAB Arterial Blood Gas Puncture Site Right Radial Arterial Blood Carboxyhemoglobin 1.1 Arterial Blood Methemoglobin 0.1 Blood Gas A-a O2 Differential 243.3 H Oxyhemoglobin Percent 93.5 Total Hemoglobin 13.7 Blood Gas Temperature 37.0 Blood Gas Respiration Rate 18.0 Blood Gas Actual Respiration Rate 22 Blood Gas Modality VENT - AC FiO2 55.0 Blood Gas Tidal Volume 550.0 Blood Gas Low PEEP Setting 5.0 Blood Gas Critical Value Read Back H MARSHA RN Blood Gas Notified Whom TEVIN Blood Gas Notified Time 10/22/2017 8:20:54 AM Test 10/22/17 12:02 10/22/17 12:03 Bedside Glucose 140 110 Medications Medications Current Medications Ondansetron HCl (Zofran Inj) 4 mg Q6H PRN IV NAUSEA AND/OR VOMITING Last administered on 10/17/17 03:01; Admin Dose 4 MG; Start 10/14/17 at 21:30 Nitroglycerin (Nitroglycerin (Sl Tab) 0.4 Mg) 1 tab Q5M PRN SL CHEST PAIN; Start 10/14/17 at 21:30 Acetaminophen (Tylenol Tab) 650 mg Q6H PRN PO PAIN LEVEL 1-3 OR FEVER Last administered on 10/17/17 01:54; Admin Dose 650 MG; Start 10/14/17 at 21:30 Enoxaparin Sodium (Lovenox) 245 mg Q12 SC Last administered on 10/22/17 08:30 ; Admin Dose 245 MG; Start 10/16/17 at 01:00 Morphine Sulfate (morphine) 2 mg Q4H PRN IV PAIN LEVEL 7-10 Last administered on 10/17/17 01:54; Admin Dose 2 MG; Start 10/16/17 at 00:00 Multi-Ingredient Ointment (Eucerin Cream) 1 applic BID TOP Last administered on 10/22/17 08:31; Admin Dose 1 APPLIC; Start 10/16/17 at 09:00 Triamcinolone Acetonide 1 applic 1 applic BID TOP Last administered on 08:31; Admin Dose 1 APPLIC; Start 10/16/17 at 14:00 Propofol (Diprivan) 100 ml @ 7.35 mls/hr Q12H IV Last administered on 08:40; Admin Dose 22.05 MLS/HR; Start 10/17/17 at 08:30 Famotidine 20 mg 20 mg HS GTB Last administered on 10/21/17 20:54; Admin Dose 20 MG; Start 10/17/17 at 21:00 Fentanyl (Sublimaze) 100 ml @ 2.5 mls/hr TITRATE IV Last administered on 10/22 04:30; Admin Dose 5 MLS/HR; Start 10/18/17 at 10:00 Lorazepam (Ativan) 2 mg Q4H PRN IV AGITATION Last administered on 10/18/17 21 :08; Admin Dose 2 MG; Start 10/18/17 at 21:00 Diagnostic Test (Pha) (Accu-Chek) 1 ea 02 XX Last administered on 10/22/17 01 :02; Admin Dose 1 EA; Start 10/20/17 at 02:00 Miscellaneous Information 1 ea NOTE XX ; Start 10/19/17 at 18:00 Glucose (Glutose) 15 gm Q15M PRN PO DECREASED GLUCOSE; Start 10/19/17 at 18:00 Glucose (Glutose) 22.5 gm Q15M PRN PO DECREASED GLUCOSE; Start 10/19/17 at 18: 00 Dextrose (D50w Syringe) 25 ml Q15M PRN IV DECREASED GLUCOSE; Start 10/19/17 at 18:00 Dextrose (D50w Syringe) 50 ml Q15M PRN IV DECREASED GLUCOSE; Start 10/19/17 at 18:00 Glucagon (Glucagen) 1 mg Q15M PRN IM DECREASED GLUCOSE; Start 10/19/17 at 18: 00 Glucose 15 gm 15 gm Q15M PRN BUCCAL DECREASED GLUCOSE; Start 10/19/17 at 18:00 Midazolam HCl (Versed) 50 ml @ 1 mls/hr TITRATE IV Last administered on 08:40; Admin Dose 7 MLS/HR; Start 10/21/17 at 09:30 Insulin Aspart (Novolog Insulin Pen) NOVOLOG *MILD* ALGORI... Q6 SC ; Start at 12:00 GABRIEL MALDONADO Oct 22, 2017 12:56
--- NOTE | 2017-10-22 17:47 | RADRPT ---
PROCEDURE: XR Chest. CLINICAL INDICATION: Check PICC line position. TECHNIQUE: Single frontal view. COMPARISON: 10/22/2017. 0659 hours. FINDINGS: There is a left arm PICC line with the tip in the lower superior vena cava. The endotracheal tube a nd nasogastric tube remain in satisfactory position. There is mild pulmonary edema, unchanged. Left basilar atelectasis is unchanged. The heart is enlarg ed. There is a small left pleural effusion. There is no right pleural effusion. There is no pneumothorax. IMPRESSION: 1. Left arm PICC line tip in satisfactory position. 2. Endotracheal tube and nasogastric tube in satisfactory position. 3. Mild pulmonary edema and left basilar atelectasis, unchanged. 4. Cardiomegaly. 5. Small left pleural effusion. RPTAT: QQ .Finn Santiago MD, MD Date Time Electronically viewed and signed by .Finn Santiago MD, MD on 10/22/2017 17:47 .R/
[2017-10-22] MEDS ORDERED: SOD CHLORIDE 0.9% 100 ML ONE (18:40)
[2017-10-22] MEDS: ACETAMINOPHEN 325 MG TAB PO PRN (20:02)
[2017-10-22] MEDS: FAMOTIDINE 20 MG TAB GTB SCH (20:02)
[2017-10-23] VITALS (34 sets, daily range): BP systolic 121–174; BP diastolic 67–120; PULSE 100–118; RESP 18–36
[2017-10-23] MEDS: ACCU-CHEK XX SCH (01:35)
[2017-10-23] MEDS: MIDAZOLAM (DRIP) 50 mg/50 mL 50 ML IV SCH ×4 (03:06→20:14)
[2017-10-23 05:39] LABS: ABNORMAL IP MESSAGE 1; BASOPHIL # 0.1 10^3/ul (0.0-0.1); BASOPHILS % 0.7 % (0.0-2.0); EOSINOPHILS # 0.2 10^3/ul (0.0-0.5); EOSINOPHILS % 1.8 % (0.0-7.0); HEMATOCRIT 42.7 % (42.0-52.0); HEMOGLOBIN 12.8 g/dl (14.0-18.0); LYMPHOCYTES % 21.2 % (15.0-51.0); MEAN CORPUSCULAR HEMOGLOBIN 24.5 pg (29.0-33.0); MEAN CORPUSCULAR VOLUME 81.8 fl (82.0-101.0); MEAN PLATELET VOLUME 10.4 fl (7.4-10.4); MONOCYTE # 1.9 10^3/ul (0.3-0.9); MONOCYTES % 19.6 % (0.0-11.0); NEUTROPHIL # 5.4 10^3/ul (1.6-7.5); NEUTROPHILS % 55.7 % (39.0-77.0); PLATELET COUNT 304 10^3/UL (140-415); POSITIVE DIFF @See below; RED BLOOD COUNT 5.22 10^6/ul (4.70-6.10); RED CELL DISTRIBUTION WIDTH 18.2 % (11.5-14.5); WHITE BLOOD COUNT 9.6 10^3/ul (4.8-10.8)
[2017-10-23] MEDS: INSULIN ASPART [NOVOLOG] 3 ML PEN SC SCH ×5 (05:52→21:41)
[2017-10-23] MEDS: FUROSEMIDE 40 MG INJ IV SCH ×2 (05:54→17:58)
[2017-10-23 06:09] LABS: CALCIUM 9.3 mg/dl (8.4-10.2); CREATININE 0.91 mg/dl (0.61-1.24); POTASSIUM 3.6 mmol/L (3.5-5.1)
--- NOTE | 2017-10-23 08:01 | RADRPT ---
PROCEDURE: Ultrasound guidance for placement of needle in left upper extremity vein. CLINICAL INDICATION: Venous access. TECHNIQUE: Limited sonography of the left upper extremity was performed. Ultrasound images were recorded and s tored in the patient's medical record. COMPARISON: None. FINDINGS: The ultrasound images demonstrate a patent left upper extremity vein. The PICC line was inserted by the PICC line nurse. IMPRESSION: 1. Ultrasound guidance for a needle placement in a left upper extremity vein. 2. The left upper extremity vein is patent. RPTAT: QQ .Finn Santiago MD, MD Date Time Electronically viewed and signed by .Finn Santiago MD, MD on 10/23/2017 08:00 .R/
[2017-10-23] MEDS: EUCERIN 113 GM CR TOP SCH ×2 (09:02→21:41)
[2017-10-23] MEDS: TRIAMCINOLONE ACET 0.1% 15 GM OINT TOP SCH ×2 (09:02→21:41)
[2017-10-23] MEDS: ENOXAPARIN 100 MG/ML SYG SC SCH ×2 (09:02→20:49)
--- NOTE | 2017-10-23 10:03 | CONS ---
Date/Time of Note Date/Time of Note DATE: 10/23/17 TIME: 10:01 Consult Date/Type/Reason Admit Date/Time Oct 14, 2017 at 20:55 Type of Consultation: Pulmonary Subjective Remains intubated on mechanical ventilation. Follows simple commands off sedation. Objective Vital Signs Date Time Temp Pulse Resp B/P Pulse Ox O2 Delivery O2 Flow Rate FiO2 10/23/17 09:43 103 21 92 45 10/23/17 06:00 134/79 Mechanical Ventilator 10/23/17 04:00 99.2 Intake and Output 10/22/17 10/22/17 10/23/17 15:00 23:00 07:00 Intake Total 623.90 ml 527 ml 575 ml Output Total 630 ml 1275 ml 390 ml Balance -6.10 ml -748 ml 185 ml Exam GENERAL: Morbidly obese gentleman intubated on mechanical ventilation. VITAL SIGNS: per chart NECK: Supple. No JVD or lymphadenopathy. CARDIAC EXAM: S1, S2. No added sounds or murmurs. CHEST: Diminished air entry bilaterally with rales right base. ABDOMEN: Soft, nontender. No guarding or rebound. EXTREMITIES: No cyanosis, clubbing or edema. NEUROLOGIC: Generalized weakness. No focal deficits. Results/Medications Result Diagram: 10/23/17 0430 10/23/17 0430 Results 24 hrs Laboratory Tests Test 10/22/17 12:02 10/22/17 12:03 10/22/17 18:21 10/22/17 23:33 Bedside Glucose 140 110 108 107 Test 10/23/17 04:30 10/23/17 04:40 White Blood Count 9.6 Red Blood Count 5.22 Hemoglobin 12.8 L Hematocrit 42.7 Mean Corpuscular Volume 81.8 L Mean Corpuscular Hemoglobin 24.5 L Mean Corpuscular Hemoglobin Concent 30.0 L Red Cell Distribution Width 18.2 H Platelet Count 304 Mean Platelet Volume 10.4 Neutrophils % 55.7 Lymphocytes % 21.2 Monocytes % 19.6 H Eosinophils % 1.8 Basophils % 0.7 Nucleated Red Blood Cells % 0.0 Neutrophils # 5.4 Lymphocytes # 2.0 Monocytes # 1.9 H Eosinophils # 0.2 Basophils # 0.1 Nucleated Red Blood Cells # 0.0 Sodium Level 147 H Potassium Level 3.6 Chloride Level 98 Carbon Dioxide Level 41 *H Anion Gap 12 Blood Urea Nitrogen 18 Creatinine 0.91 Glucose Level 111 Calcium Level 9.3 Bedside Glucose 89 Medications Current Medications Ondansetron HCl (Zofran Inj) 4 mg Q6H PRN IV NAUSEA AND/OR VOMITING Last administered on 10/17/17 03:01; Admin Dose 4 MG; Start 10/14/17 at 21:30 Nitroglycerin (Nitroglycerin (Sl Tab) 0.4 Mg) 1 tab Q5M PRN SL CHEST PAIN; Start 10/14/17 at 21:30 Acetaminophen (Tylenol Tab) 650 mg Q6H PRN PO PAIN LEVEL 1-3 OR FEVER Last administered on 10/22/17 20:02; Admin Dose 650 MG; Start 10/14/17 at 21:30 Enoxaparin Sodium (Lovenox) 245 mg Q12 SC Last administered on 10/23/17 09:02 ; Admin Dose 245 MG; Start 10/16/17 at 01:00 Morphine Sulfate (morphine) 2 mg Q4H PRN IV PAIN LEVEL 7-10 Last administered on 10/17/17 01:54; Admin Dose 2 MG; Start 10/16/17 at 00:00 Multi-Ingredient Ointment (Eucerin Cream) 1 applic BID TOP Last administered on 10/23/17 09:02; Admin Dose 1 APPLIC; Start 10/16/17 at 09:00 Triamcinolone Acetonide 1 applic 1 applic BID TOP Last administered on 09:02; Admin Dose 1 APPLIC; Start 10/16/17 at 14:00 Propofol (Diprivan) 100 ml @ 7.35 mls/hr Q12H IV Last administered on 08:40; Admin Dose 22.05 MLS/HR; Start 10/17/17 at 08:30 Famotidine 20 mg 20 mg HS GTB Last administered on 10/22/17 20:02; Admin Dose 20 MG; Start 10/17/17 at 21:00 Fentanyl (Sublimaze) 100 ml @ 2.5 mls/hr TITRATE IV Last administered on 10/22 21:52; Admin Dose 55 MLS/HR; Start 10/18/17 at 10:00 Lorazepam (Ativan) 2 mg Q4H PRN IV AGITATION Last administered on 10/18/17 21 :08; Admin Dose 2 MG; Start 10/18/17 at 21:00 Diagnostic Test (Pha) (Accu-Chek) 1 ea 02 XX Last administered on 10/23/17 01 :35; Admin Dose 1 EA; Start 10/20/17 at 02:00 Miscellaneous Information 1 ea NOTE XX ; Start 10/19/17 at 18:00 Glucose (Glutose) 15 gm Q15M PRN PO DECREASED GLUCOSE; Start 10/19/17 at 18:00 Glucose (Glutose) 22.5 gm Q15M PRN PO DECREASED GLUCOSE; Start 10/19/17 at 18: 00 Dextrose (D50w Syringe) 25 ml Q15M PRN IV DECREASED GLUCOSE; Start 10/19/17 at 18:00 Dextrose (D50w Syringe) 50 ml Q15M PRN IV DECREASED GLUCOSE; Start 10/19/17 at 18:00 Glucagon (Glucagen) 1 mg Q15M PRN IM DECREASED GLUCOSE; Start 10/19/17 at 18: 00 Glucose 15 gm 15 gm Q15M PRN BUCCAL DECREASED GLUCOSE; Start 10/19/17 at 18:00 Midazolam HCl (Versed) 50 ml @ 1 mls/hr TITRATE IV Last administered on 09:35; Admin Dose 10 MLS/HR; Start 10/21/17 at 09:30 Insulin Aspart (Novolog Insulin Pen) NOVOLOG *MILD* ALGORI... Q6 SC ; Start at 12:00 IV Flush (NS 10 ml) 10 ml PRN PRN IV IV PROTOCOL; Start 10/22/17 at 19:00 Assessment/Plan Chief Complaint/Hosp Course IMPRESSION 1. Acute on chronic hypercapnic respiratory failure.Pulmonary edema and possible pneumonia. Improved aeration on chest x-ray today. 2. Morbid obesity. 3. Likely diastolic dysfunction.pulmonary edema. 4. Possible thromboembolic disease. Unable to exclude thromboembolic disease given morbid obesity. Elevated D-dimers. PLAN: 1. Continue anticoagulation for deep vein thrombosis. Continue anticoagulation 2. Mechanical ventilation. Continue Versed and fentanyl. SIMV trial today. 3. Bronchodilators. 4. Echocardiogram. Consider increasing diuretics 5. Deep venous thrombosis and gastrointestinal prophylaxis. 6. Diamox for chronic hypercapnia. 7. Increase free water. Problems: BRIGETTE CODY MD, [facility] Oct 23, 2017 10:03
--- NOTE | 2017-10-23 10:38 | PN ---
Date/Time of Note Date/Time of Note DATE: 10/23/17 TIME: 10:35 Assessment/Plan VTE Prophylaxis VTE Prophylaxis Intervention: LMWH Lines/Catheters IV [facility] Type (from [facility] PICC Line Central line still needed: Yes Urinary Cath still in place: Yes Reason Cath still needed: urinary retention Assessment/Plan Chief Complaint/Hosp Course Assessment/Plan: 47 yo M with super morbid obesity, DM presented to SOB intubated overnight for airway protection in setting of CO2 narcosis and pulmonary edema.P/F ratio consistent with mild ARDS with P/F ~240. 1. SOB/res failure: Acute on chronic hypercapnic respiratory failure. Pulmonary edema and possible pneumonia - ruled out for acute ND during this hospital stay. BNP on admission normal. -low TV ventilatory management, defer to pulm -have slightly lowered FiO2 today. -Continue diuretics for now -Patient now on Diamox for chronic hypercapnia 2. possible PE?: Lower extremity ultrasounds inconclusive. - cont LMWH treatment dose for now, have discontinued warfarin. Upon discussion with pharmacy and pulmonary teams, if patient able to be extubated and take oral medicines, will transition to either Eliquis or Xarelto at that time, b/c per pharmacy, even though apparently cannot use NOAC if BMI >40, recent studies do indicate checking drug specific peak and trough levels for these medicines if having to use DOAC in patients with BMI greater than 40. Given this patient' s history of noncompliance, DO AC would likely be more beneficial to this patient versus Coumadin. 3. LE wounds: sp wound care eval DM2: cont SSI though per RN hasn't yet needed any FEN: cont TFs critical care time: 40 minutes Problems: Subjective 24 Hr Interval Summary Free Text/Dictation Patient still intubated. Seen by pulmonary team this morning. No acute events overnight. Having some tachycardia heart rate in the 110 range. Exam/Review of Systems Vital Signs Vitals Vital Signs Date Time Temp Pulse Resp B/P Pulse Ox O2 Delivery O2 Flow Rate FiO2 10/23/17 10:20 114 36 93 45 10/23/17 06:00 134/79 Mechanical Ventilator 10/23/17 04:00 99.2 Intake and Output 10/22/17 10/22/17 10/23/17 15:00 23:00 07:00 Intake Total 623.90 ml 527 ml 575 ml Output Total 630 ml 1275 ml 390 ml Balance -6.10 ml -748 ml 185 ml Exam Lying in bed, intubated, morbidly obese Supple distant lung sounds distant heart sounds no rashes LE unchanged Results Result Diagram: 10/23/17 0430 10/23/17 0430 Results 24 hrs Laboratory Tests Test 10/22/17 12:02 10/22/17 12:03 10/22/17 18:21 10/22/17 23:33 Bedside Glucose 140 110 108 107 Test 10/23/17 04:30 10/23/17 04:40 White Blood Count 9.6 Red Blood Count 5.22 Hemoglobin 12.8 L Hematocrit 42.7 Mean Corpuscular Volume 81.8 L Mean Corpuscular Hemoglobin 24.5 L Mean Corpuscular Hemoglobin Concent 30.0 L Red Cell Distribution Width 18.2 H Platelet Count 304 Mean Platelet Volume 10.4 Neutrophils % 55.7 Lymphocytes % 21.2 Monocytes % 19.6 H Eosinophils % 1.8 Basophils % 0.7 Nucleated Red Blood Cells % 0.0 Neutrophils # 5.4 Lymphocytes # 2.0 Monocytes # 1.9 H Eosinophils # 0.2 Basophils # 0.1 Nucleated Red Blood Cells # 0.0 Sodium Level 147 H Potassium Level 3.6 Chloride Level 98 Carbon Dioxide Level 41 *H Anion Gap 12 Blood Urea Nitrogen 18 Creatinine 0.91 Glucose Level 111 Calcium Level 9.3 Bedside Glucose 89 Medications Medications Current Medications Ondansetron HCl (Zofran Inj) 4 mg Q6H PRN IV NAUSEA AND/OR VOMITING Last administered on 10/17/17 03:01; Admin Dose 4 MG; Start 10/14/17 at 21:30 Nitroglycerin (Nitroglycerin (Sl Tab) 0.4 Mg) 1 tab Q5M PRN SL CHEST PAIN; Start 10/14/17 at 21:30 Acetaminophen (Tylenol Tab) 650 mg Q6H PRN PO PAIN LEVEL 1-3 OR FEVER Last administered on 10/22/17 20:02; Admin Dose 650 MG; Start 10/14/17 at 21:30 Enoxaparin Sodium (Lovenox) 245 mg Q12 SC Last administered on 10/23/17 09:02 ; Admin Dose 245 MG; Start 10/16/17 at 01:00 Morphine Sulfate (morphine) 2 mg Q4H PRN IV PAIN LEVEL 7-10 Last administered on 10/17/17 01:54; Admin Dose 2 MG; Start 10/16/17 at 00:00 Multi-Ingredient Ointment (Eucerin Cream) 1 applic BID TOP Last administered on 10/23/17 09:02; Admin Dose 1 APPLIC; Start 10/16/17 at 09:00 Triamcinolone Acetonide 1 applic 1 applic BID TOP Last administered on 09:02; Admin Dose 1 APPLIC; Start 10/16/17 at 14:00 Propofol (Diprivan) 100 ml @ 7.35 mls/hr Q12H IV Last administered on 08:40; Admin Dose 22.05 MLS/HR; Start 10/17/17 at 08:30 Famotidine 20 mg 20 mg HS GTB Last administered on 10/22/17 20:02; Admin Dose 20 MG; Start 10/17/17 at 21:00 Fentanyl (Sublimaze) 100 ml @ 2.5 mls/hr TITRATE IV Last administered on 10/22 21:52; Admin Dose 55 MLS/HR; Start 10/18/17 at 10:00 Lorazepam (Ativan) 2 mg Q4H PRN IV AGITATION Last administered on 10/18/17 21 :08; Admin Dose 2 MG; Start 10/18/17 at 21:00 Diagnostic Test (Pha) (Accu-Chek) 1 ea 02 XX Last administered on 10/23/17 01 :35; Admin Dose 1 EA; Start 10/20/17 at 02:00 Miscellaneous Information 1 ea NOTE XX ; Start 10/19/17 at 18:00 Glucose (Glutose) 15 gm Q15M PRN PO DECREASED GLUCOSE; Start 10/19/17 at 18:00 Glucose (Glutose) 22.5 gm Q15M PRN PO DECREASED GLUCOSE; Start 10/19/17 at 18: 00 Dextrose (D50w Syringe) 25 ml Q15M PRN IV DECREASED GLUCOSE; Start 10/19/17 at 18:00 Dextrose (D50w Syringe) 50 ml Q15M PRN IV DECREASED GLUCOSE; Start 10/19/17 at 18:00 Glucagon (Glucagen) 1 mg Q15M PRN IM DECREASED GLUCOSE; Start 10/19/17 at 18: 00 Glucose 15 gm 15 gm Q15M PRN BUCCAL DECREASED GLUCOSE; Start 10/19/17 at 18:00 Midazolam HCl (Versed) 50 ml @ 1 mls/hr TITRATE IV Last administered on t 09:35; Admin Dose 10 MLS/HR; Start 10/21/17 at 09:30 Insulin Aspart (Novolog Insulin Pen) NOVOLOG *MILD* ALGORI... Q6 SC ; Start at 12:00 IV Flush (NS 10 ml) 10 ml PRN PRN IV IV PROTOCOL; Start 10/22/17 at 19:00 Acetazolamide (Diamox) 250 mg BID GTB ; Start 10/23/17 at 10:30 DOLLY ESCOBEDO Oct 23, 2017 10:38
[2017-10-23] MEDS: ACETAZOLAMIDE 250 MG TAB GTB SCH ×2 (11:17→20:41)
[2017-10-23] MEDS: FENTAnyl (DRIP) 1000 mcg/100mL 100 ML IV SCH (16:50)
[2017-10-23] MEDS: PROPOFOL 100 ML IV SCH (20:30)
[2017-10-23] MEDS: ACETAMINOPHEN 325 MG TAB PO PRN (20:41)
[2017-10-23] MEDS: FAMOTIDINE 20 MG TAB GTB SCH (20:41)
[2017-10-24] VITALS (36 sets, daily range): BP systolic 114–134; BP diastolic 63–86; PULSE 95–112; RESP 19–27
[2017-10-24] MEDS: MIDAZOLAM (DRIP) 50 mg/50 mL 50 ML IV SCH ×5 (01:55→22:02)
[2017-10-24] MEDS: ACCU-CHEK XX SCH (02:00)
[2017-10-24 05:22] LABS: ABNORMAL IP MESSAGE 1; BASOPHIL # 0.1 10^3/ul (0.0-0.1); BASOPHILS % 0.6 % (0.0-2.0); EOSINOPHILS # 0.2 10^3/ul (0.0-0.5); EOSINOPHILS % 1.8 % (0.0-7.0); HEMATOCRIT 42.7 % (42.0-52.0); HEMOGLOBIN 12.8 g/dl (14.0-18.0); LYMPHOCYTES # 2.5 10^3/ul (0.8-2.9); LYMPHOCYTES % 22.8 % (15.0-51.0); MEAN CORPUSCULAR HEMOGLOBIN 24.6 pg (29.0-33.0); MEAN PLATELET VOLUME 10.9 fl (7.4-10.4); MONOCYTE # 2.1 10^3/ul (0.3-0.9); MONOCYTES % 19.3 % (0.0-11.0); NEUTROPHIL # 5.9 10^3/ul (1.6-7.5); NEUTROPHILS % 54.1 % (39.0-77.0); PLATELET COUNT 344 10^3/UL (140-415); POSITIVE DIFF @See below; RED BLOOD COUNT 5.21 10^6/ul (4.70-6.10); RED CELL DISTRIBUTION WIDTH 19.2 % (11.5-14.5); WHITE BLOOD COUNT 10.9 10^3/ul (4.8-10.8)
[2017-10-24 05:32] LABS: CALCIUM 9.4 mg/dl (8.4-10.2); CREATININE 1.07 mg/dl (0.61-1.24); MAGNESIUM 2.1 mg/dl (1.7-2.5); PHOSPHORUS 4.7 mg/dl (2.5-4.9); POTASSIUM 3.5 mmol/L (3.5-5.1)
[2017-10-24] MEDS: INSULIN ASPART [NOVOLOG] 3 ML PEN SC SCH ×3 (06:00→22:00)
[2017-10-24] MEDS: FENTAnyl (DRIP) 1000 mcg/100mL 100 ML IV SCH ×2 (06:26→17:44)
[2017-10-24] MEDS: FUROSEMIDE 40 MG INJ IV SCH ×2 (06:27→17:35)
[2017-10-24] MEDS: LORAZEPAM 2 MG INJ IV PRN (07:24)
[2017-10-24] MEDS: PROPOFOL 100 ML IV SCH ×2 (07:46→20:30)
[2017-10-24 08:06] LABS: Allen Test ACCEPTAB; Arterial Base Excess 10.1 mmol/L (-3.0-3); Arterial COHb 0.9 % (0.0-3.0); Arterial Fraction of Oxyhgb 92.2 % (93.0-99.0); Arterial HCO3 37.8 mmol/L (22.0-26.0); Arterial MetHb 0.1 % (0.0-1.5); Arterial Total Hemglobin 14.5 g/dl (12.0-18.0); MODE VENT - AC
[2017-10-24] MEDS: EUCERIN 113 GM CR TOP SCH ×2 (08:19→20:44)
[2017-10-24] MEDS: TRIAMCINOLONE ACET 0.1% 15 GM OINT TOP SCH ×2 (08:19→20:44)
[2017-10-24] MEDS: ACETAZOLAMIDE 250 MG TAB GTB SCH ×2 (08:19→20:43)
[2017-10-24] MEDS: ACETAMINOPHEN 325 MG TAB PO PRN ×2 (08:19→20:43)
[2017-10-24] MEDS: ENOXAPARIN 100 MG/ML SYG SC SCH ×2 (08:20→20:45)
--- NOTE | 2017-10-24 09:39 | RADRPT ---
PROCEDURE: Chest radiograph CLINICAL INDICATION: Pneumonia and heart failure. COMPARISON: Radiograph 10/22/2017. TECHNIQUE: Single frontal chest radiograph. FINDINGS: The endotracheal tube terminates 5 cm above the kathe. The enteric tube courses below the diaphragm. Small left pleural effusion. Low lung volumes. Moderate pulmonary vascular congestion with alveolar opacities, most consistent with heart failure. No suspicious bone lesion. IMPRESSION: Overall, no interval change. 1. Cardiomegaly with pulmonary vascular congestion, pulmonary edema, and small left pleural effusion - findings consistent with heart failure. 2. All support lines and tubes in appropriate position. RPTAT: PP Physician Maria C Date Time Electronically viewed and signed by Physician Maria C on 10/24/2017 09:39 LG/
--- NOTE | 2017-10-24 10:18 | CONS ---
Date/Time of Note Date/Time of Note DATE: 10/24/17 TIME: 10:16 Consult Date/Type/Reason Admit Date/Time Oct 14, 2017 at 20:55 Type of Consultation: Pulmonary Subjective Patient remains intubated on mechanical ventilation. Failed SIMV trial. Objective Vital Signs Date Time Temp Pulse Resp B/P Pulse Ox O2 Delivery O2 Flow Rate FiO2 10/24/17 10:00 112 21 129/79 96 Mechanical Ventilator 10/24/17 08:00 60 10/24/17 08:00 101.1 Intake and Output 10/23/17 10/23/17 10/24/17 14:59 22:59 06:59 Intake Total 555.0 ml 590.5 ml 650.5 ml Output Total 1350 ml 900 ml 625 ml Balance -795.0 ml -309.5 ml 25.5 ml Exam GENERAL: Morbidly obese gentleman intubated on mechanical ventilation. VITAL SIGNS: per chart NECK: Supple. No JVD or lymphadenopathy. CARDIAC EXAM: S1, S2. No added sounds or murmurs. CHEST: Diminished air entry bilaterally with rales right base. ABDOMEN: Soft, nontender. No guarding or rebound. EXTREMITIES: No cyanosis, clubbing or edema. NEUROLOGIC: Generalized weakness. No focal deficits. Results/Medications Result Diagram: 10/24/17 0430 10/24/17 0430 Results 24 hrs Laboratory Tests Test 10/23/17 11:50 10/23/17 17:59 10/23/17 21:40 10/24/17 04:30 Bedside Glucose 116 112 99 White Blood Count 10.9 H Red Blood Count 5.21 Hemoglobin 12.8 L Hematocrit 42.7 Mean Corpuscular Volume 82.0 Mean Corpuscular Hemoglobin 24.6 L Mean Corpuscular Hemoglobin Concent 30.0 L Red Cell Distribution Width 19.2 H Platelet Count 344 Mean Platelet Volume 10.9 H Neutrophils % 54.1 Lymphocytes % 22.8 Monocytes % 19.3 H Eosinophils % 1.8 Basophils % 0.6 Nucleated Red Blood Cells % 0.0 Neutrophils # 5.9 Lymphocytes # 2.5 Monocytes # 2.1 H Eosinophils # 0.2 Basophils # 0.1 Nucleated Red Blood Cells # 0.0 Sodium Level 148 H Potassium Level 3.5 Chloride Level 101 Carbon Dioxide Level Anion Gap 12 Blood Urea Nitrogen 22 H Creatinine 1.07 Glucose Level 110 Calcium Level 9.4 Phosphorus Level 4.7 Magnesium Level 2.1 Test 10/24/17 06:31 10/24/17 07:00 Bedside Glucose 106 Blood Gas Specimen Source Blood arterial Arterial Blood Date Drawn 10/24/2017 7:40:41 AM Arterial Blood pH (Temp corrected) 7.390 Arterial Blood pCO2 (Temp correct) 63.8 H Arterial Blood pO2 (Temp corrected) 72.6 L Arterial Blood HCO3 37.8 H Arterial Blood Base Excess 10.1 H Arterial Blood Oxygen Saturation 93.1 L Danyel Test ACCEPTAB Arterial Blood Gas Puncture Site Right Radial Arterial Blood Carboxyhemoglobin 0.9 Arterial Blood Methemoglobin 0.1 Blood Gas A-a O2 Differential 285.0 H Oxyhemoglobin Percent 92.2 L Total Hemoglobin 14.5 Blood Gas Temperature 37.0 Blood Gas Respiration Rate 18.0 Blood Gas Actual Respiration Rate 21 Blood Gas Modality VENT - AC FiO2 60.0 Blood Gas Tidal Volume 550.0 Blood Gas Low PEEP Setting 5.0 Blood Gas Notified Whom DT Blood Gas Notified Time 10/24/2017 8:05:50 AM Medications Current Medications Ondansetron HCl (Zofran Inj) 4 mg Q6H PRN IV NAUSEA AND/OR VOMITING Last administered on 10/17/17 03:01; Admin Dose 4 MG; Start 10/14/17 at 21:30 Nitroglycerin (Nitroglycerin (Sl Tab) 0.4 Mg) 1 tab Q5M PRN SL CHEST PAIN; Start 10/14/17 at 21:30 Acetaminophen (Tylenol Tab) 650 mg Q6H PRN PO PAIN LEVEL 1-3 OR FEVER Last administered on 10/24/17 08:19; Admin Dose 650 MG; Start 10/14/17 at 21:30 Enoxaparin Sodium (Lovenox) 245 mg Q12 SC Last administered on 10/24/17 08:20 ; Admin Dose 245 MG; Start 10/16/17 at 01:00 Morphine Sulfate (morphine) 2 mg Q4H PRN IV PAIN LEVEL 7-10 Last administered on 10/17/17 01:54; Admin Dose 2 MG; Start 10/16/17 at 00:00 Multi-Ingredient Ointment (Eucerin Cream) 1 applic BID TOP Last administered on 10/24/17 08:19; Admin Dose 1 APPLIC; Start 10/16/17 at 09:00 Triamcinolone Acetonide 1 applic 1 applic BID TOP Last administered on 08:19; Admin Dose 1 APPLIC; Start 10/16/17 at 14:00 Propofol (Diprivan) 100 ml @ 7.35 mls/hr Q12H IV Last administered on 08:40; Admin Dose 22.05 MLS/HR; Start 10/17/17 at 08:30 Famotidine 20 mg 20 mg HS GTB Last administered on 10/23/17 20:41; Admin Dose 20 MG; Start 10/17/17 at 21:00 Fentanyl (Sublimaze) 100 ml @ 2.5 mls/hr TITRATE IV Last administered on 10/24 06:26; Admin Dose 7.5 MLS/HR; Start 10/18/17 at 10:00 Lorazepam (Ativan) 2 mg Q4H PRN IV AGITATION Last administered on 10/24/17 07 :24; Admin Dose 2 MG; Start 10/18/17 at 21:00 Diagnostic Test (Pha) (Accu-Chek) 1 ea 02 XX Last administered on 10/23/17 01 :35; Admin Dose 1 EA; Start 10/20/17 at 02:00 Miscellaneous Information 1 ea NOTE XX ; Start 10/19/17 at 18:00 Glucose (Glutose) 15 gm Q15M PRN PO DECREASED GLUCOSE; Start 10/19/17 at 18:00 Glucose (Glutose) 22.5 gm Q15M PRN PO DECREASED GLUCOSE; Start 10/19/17 at 18: 00 Dextrose (D50w Syringe) 25 ml Q15M PRN IV DECREASED GLUCOSE; Start 10/19/17 at 18:00 Dextrose (D50w Syringe) 50 ml Q15M PRN IV DECREASED GLUCOSE; Start 10/19/17 at 18:00 Glucagon (Glucagen) 1 mg Q15M PRN IM DECREASED GLUCOSE; Start 10/19/17 at 18: 00 Glucose 15 gm 15 gm Q15M PRN BUCCAL DECREASED GLUCOSE; Start 10/19/17 at 18:00 Midazolam HCl (Versed) 50 ml @ 1 mls/hr TITRATE IV Last administered on 07:16; Admin Dose 10 MLS/HR; Start 10/21/17 at 09:30 IV Flush (NS 10 ml) 10 ml PRN PRN IV IV PROTOCOL; Start 10/22/17 at 19:00 Acetazolamide (Diamox) 250 mg BID GTB Last administered on 10/24/17t 08:19; Admin Dose 250 MG; Start 10/23/17 at 10:30 Insulin Aspart (Novolog Insulin Pen) NOVOLOG *MILD* ALGORI... Q8 SC ; Start at 22:00 Assessment/Plan Chief Complaint/Hosp Course IMPRESSION 1. Acute on chronic hypercapnic respiratory failure.Pulmonary edema and possible pneumonia. Improved aeration on chest x-ray today. 2. Morbid obesity. 3. Likely diastolic dysfunction.pulmonary edema. 4. Possible thromboembolic disease. Unable to exclude thromboembolic disease given morbid obesity. Elevated D-dimers. PLAN: 1. Continue anticoagulation for deep vein thrombosis. Continue anticoagulation 2. Mechanical ventilation. Continue Versed and fentanyl. Not ready for weaning 3. Bronchodilators. 4. Gentle diuresis if tolerated 5. Deep venous thrombosis and gastrointestinal prophylaxis. 6. Diamox for chronic hypercapnia. 7. Increase free water. Problems: BRIGETTE CODY MD, [facility] Oct 24, 2017 10:18
--- NOTE | 2017-10-24 11:57 | PN ---
Date/Time of Note Date/Time of Note DATE: 10/24/17 TIME: 11:54 Assessment/Plan VTE Prophylaxis VTE Prophylaxis Intervention: LMWH Lines/Catheters IV Catheter Type (from Nrs): PICC Line Central line still needed: Yes Urinary Cath still in place: Yes Reason Cath still needed: urinary retention Assessment/Plan Chief Complaint/Hosp Course Assessment/Plan: 47 yo M with super morbid obesity, DM presented to SOB intubated overnight for airway protection in setting of CO2 narcosis and pulmonary edema.P/F ratio consistent with mild ARDS with P/F ~240. 1. SOB/res failure: Acute on chronic hypercapnic respiratory failure. Pulmonary edema and possible pneumonia - ruled out for acute NC during this hospital stay. BNP on admission normal. -low TV ventilatory management, follow pulmonary recommendations -Continue diuretics for now - Diamox for chronic hypercapnia 2. possible PE?: Lower extremity ultrasounds inconclusive. - cont LMWH treatment dose for now, have discontinued warfarin. Upon discussion with pharmacy and pulmonary teams, if patient able to be extubated and take oral medicines, will transition to either Eliquis or Xarelto at that time, b/c per pharmacy, even though apparently cannot use NOAC if BMI >40, recent studies do indicate checking drug specific peak and trough levels for these medicines if having to use DOAC in patients with BMI greater than 40. Given this patient' s history of noncompliance, DO AC would likely be more beneficial to this patient versus Coumadin. 3. LE wounds: sp wound care eval DM2: cont SSI though per RN hasn't yet needed any FEN: cont TFs critical care time: 40 minutes Problems: Subjective 24 Hr Interval Summary Free Text/Dictation Patient still intubated, not able to be extubated yesterday despite trial. Patient did have some nose bleeding yesterday, presently stabilized. Exam/Review of Systems Vital Signs Vitals Vital Signs Date Time Temp Pulse Resp B/P Pulse Ox O2 Delivery O2 Flow Rate FiO2 10/24/17 10:00 112 21 129/79 96 Mechanical Ventilator 10/24/17 09:40 60 10/24/17 08:00 101.1 Intake and Output 10/23/17 10/23/17 10/24/17 14:59 22:59 06:59 Intake Total 555.0 ml 590.5 ml 650.5 ml Output Total 1350 ml 900 ml 625 ml Balance -795.0 ml -309.5 ml 25.5 ml Exam Lying in bed, intubated, morbidly obese Supple distant lung sounds distant heart sounds no rashes LE unchanged Results Result Diagram: 10/24/17 0430 10/24/17 0430 Results 24 hrs Laboratory Tests Test 10/23/17 17:59 10/23/17 21:40 10/24/17 04:30 10/24/17 06:31 Bedside Glucose 112 99 106 White Blood Count 10.9 H Red Blood Count 5.21 Hemoglobin 12.8 L Hematocrit 42.7 Mean Corpuscular Volume 82.0 Mean Corpuscular Hemoglobin 24.6 L Mean Corpuscular Hemoglobin Concent 30.0 L Red Cell Distribution Width 19.2 H Platelet Count 344 Mean Platelet Volume 10.9 H Neutrophils % 54.1 Lymphocytes % 22.8 Monocytes % 19.3 H Eosinophils % 1.8 Basophils % 0.6 Nucleated Red Blood Cells % 0.0 Neutrophils # 5.9 Lymphocytes # 2.5 Monocytes # 2.1 H Eosinophils # 0.2 Basophils # 0.1 Nucleated Red Blood Cells # 0.0 Sodium Level 148 H Potassium Level 3.5 Chloride Level 101 Carbon Dioxide Level Anion Gap 12 Blood Urea Nitrogen 22 H Creatinine 1.07 Glucose Level 110 Calcium Level 9.4 Phosphorus Level 4.7 Magnesium Level 2.1 Test 10/24/17 07:00 Blood Gas Specimen Source Blood arterial Arterial Blood Date Drawn 10/24/2017 7:40:41 AM Arterial Blood pH (Temp corrected) 7.390 Arterial Blood pCO2 (Temp correct) 63.8 H Arterial Blood pO2 (Temp corrected) 72.6 L Arterial Blood HCO3 37.8 H Arterial Blood Base Excess 10.1 H Arterial Blood Oxygen Saturation 93.1 L Danyel Test ACCEPTAB Arterial Blood Gas Puncture Site Right Radial Arterial Blood Carboxyhemoglobin 0.9 Arterial Blood Methemoglobin 0.1 Blood Gas A-a O2 Differential 285.0 H Oxyhemoglobin Percent 92.2 L Total Hemoglobin 14.5 Blood Gas Temperature 37.0 Blood Gas Respiration Rate 18.0 Blood Gas Actual Respiration Rate 21 Blood Gas Modality VENT - AC FiO2 60.0 Blood Gas Tidal Volume 550.0 Blood Gas Low PEEP Setting 5.0 Blood Gas Notified Whom DT Blood Gas Notified Time 10/24/2017 8:05:50 AM Medications Medications Current Medications Ondansetron HCl (Zofran Inj) 4 mg Q6H PRN IV NAUSEA AND/OR VOMITING Last administered on 10/17/17 03:01; Admin Dose 4 MG; Start 10/14/17 at 21:30 Nitroglycerin (Nitroglycerin (Sl Tab) 0.4 Mg) 1 tab Q5M PRN SL CHEST PAIN; Start 10/14/17 at 21:30 Acetaminophen (Tylenol Tab) 650 mg Q6H PRN PO PAIN LEVEL 1-3 OR FEVER Last administered on 10/24/17 08:19; Admin Dose 650 MG; Start 10/14/17 at 21:30 Enoxaparin Sodium (Lovenox) 245 mg Q12 SC Last administered on 10/24/17 08:20 ; Admin Dose 245 MG; Start 10/16/17 at 01:00 Morphine Sulfate (morphine) 2 mg Q4H PRN IV PAIN LEVEL 7-10 Last administered on 10/17/17 01:54; Admin Dose 2 MG; Start 10/16/17 at 00:00 Multi-Ingredient Ointment (Eucerin Cream) 1 applic BID TOP Last administered on 10/24/17 08:19; Admin Dose 1 APPLIC; Start 10/16/17 at 09:00 Triamcinolone Acetonide 1 applic 1 applic BID TOP Last administered on 08:19; Admin Dose 1 APPLIC; Start 10/16/17 at 14:00 Propofol (Diprivan) 100 ml @ 7.35 mls/hr Q12H IV Last administered on 08:40; Admin Dose 22.05 MLS/HR; Start 10/17/17 at 08:30 Famotidine 20 mg 20 mg HS GTB Last administered on 10/23/17 20:41; Admin Dose 20 MG; Start 10/17/17 at 21:00 Fentanyl (Sublimaze) 100 ml @ 2.5 mls/hr TITRATE IV Last administered on 10/24 06:26; Admin Dose 7.5 MLS/HR; Start 10/18/17 at 10:00 Lorazepam (Ativan) 2 mg Q4H PRN IV AGITATION Last administered on 10/24/17 07 :24; Admin Dose 2 MG; Start 10/18/17 at 21:00 Diagnostic Test (Pha) (Accu-Chek) 1 ea 02 XX Last administered on 10/23/17 01 :35; Admin Dose 1 EA; Start 10/20/17 at 02:00 Miscellaneous Information 1 ea NOTE XX ; Start 10/19/17 at 18:00 Glucose (Glutose) 15 gm Q15M PRN PO DECREASED GLUCOSE; Start 10/19/17 at 18:00 Glucose (Glutose) 22.5 gm Q15M PRN PO DECREASED GLUCOSE; Start 10/19/17 at 18: 00 Dextrose (D50w Syringe) 25 ml Q15M PRN IV DECREASED GLUCOSE; Start 10/19/17 at 18:00 Dextrose (D50w Syringe) 50 ml Q15M PRN IV DECREASED GLUCOSE; Start 10/19/17 at 18:00 Glucagon (Glucagen) 1 mg Q15M PRN IM DECREASED GLUCOSE; Start 10/19/17 at 18: 00 Glucose 15 gm 15 gm Q15M PRN BUCCAL DECREASED GLUCOSE; Start 10/19/17 at 18:00 Midazolam HCl (Versed) 50 ml @ 1 mls/hr TITRATE IV Last administered on 07:16; Admin Dose 10 MLS/HR; Start 10/21/17 at 09:30 IV Flush (NS 10 ml) 10 ml PRN PRN IV IV PROTOCOL; Start 10/22/17 at 19:00 Acetazolamide (Diamox) 250 mg BID GTB Last administered on 10/24/17 08:19; Admin Dose 250 MG; Start 10/23/17 at 10:30 Insulin Aspart (Novolog Insulin Pen) NOVOLOG *MILD* ALGORI... Q8 SC ; Start at 22:00 DOLLY ESCOBEDO Oct 24, 2017 11:57
[2017-10-24] MEDS ORDERED: POLYETHYLENE GLYCOL 17 GM PACKET NGT PRN (12:00)
[2017-10-24] MEDS ORDERED: DOCUSATE SODIUM 100 MG CAP PO SCH (12:00)
[2017-10-24] MEDS: POLYETHYLENE GLYCOL 17 GM PACKET NGT SCH (20:43)
[2017-10-24] MEDS: DOCUSATE SODIUM 10 MG/ML (10ML CUP) GTB SCH (20:43)
[2017-10-24] MEDS: FAMOTIDINE 20 MG TAB GTB SCH (20:43)
[2017-10-24] MEDS ORDERED: DOCUSATE SODIUM 10 MG/ML (10ML CUP) GTB SCH (21:00)
[2017-10-25] VITALS (42 sets, daily range): BP systolic 118–142; BP diastolic 67–122; PULSE 88–205; RESP 18–27
[2017-10-25] MEDS: ACCU-CHEK XX SCH (02:00)
[2017-10-25] MEDS: MIDAZOLAM (DRIP) 50 mg/50 mL 50 ML IV SCH ×4 (03:26→19:59)
[2017-10-25] MEDS: FENTAnyl (DRIP) 1000 mcg/100mL 100 ML IV SCH ×2 (04:48→18:31)
[2017-10-25 05:21] LABS: ABNORMAL IP MESSAGE 1; BASOPHIL # 0.1 10^3/ul (0.0-0.1); BASOPHILS % 0.7 % (0.0-2.0); EOSINOPHILS # 0.3 10^3/ul (0.0-0.5); EOSINOPHILS % 2.2 % (0.0-7.0); HEMATOCRIT 43.2 % (42.0-52.0); HEMOGLOBIN 12.7 g/dl (14.0-18.0); LYMPHOCYTES # 2.3 10^3/ul (0.8-2.9); LYMPHOCYTES % 17.1 % (15.0-51.0); MEAN CORPUSCULAR HEMOGLOBIN 24.2 pg (29.0-33.0); MEAN CORPUSCULAR HGB CONC 29.4 g/dl (32.0-37.0); MEAN CORPUSCULAR VOLUME 82.4 fl (82.0-101.0); MONOCYTE # 2.3 10^3/ul (0.3-0.9); MONOCYTES % 17.4 % (0.0-11.0); NEUTROPHIL # 8.2 10^3/ul (1.6-7.5); NEUTROPHILS % 61.2 % (39.0-77.0); PLATELET COUNT 373 10^3/UL (140-415); POSITIVE DIFF @See below; RED BLOOD COUNT 5.24 10^6/ul (4.70-6.10); RED CELL DISTRIBUTION WIDTH 18.3 % (11.5-14.5); WHITE BLOOD COUNT 13.3 10^3/ul (4.8-10.8)
[2017-10-25 05:55] LABS: CALCIUM 9.8 mg/dl (8.4-10.2); CREATININE 1.18 mg/dl (0.61-1.24); MAGNESIUM 2.2 mg/dl (1.7-2.5); PHOSPHORUS 4.9 mg/dl (2.5-4.9); POTASSIUM 3.6 mmol/L (3.5-5.1)
[2017-10-25] MEDS: INSULIN ASPART [NOVOLOG] 3 ML PEN SC SCH ×3 (06:00→22:00)
[2017-10-25] MEDS: FUROSEMIDE 40 MG INJ IV SCH ×2 (06:10→18:06)
--- NOTE | 2017-10-25 08:12 | RADRPT ---
PROCEDURE: XR Chest. CLINICAL INDICATION: Pneumonia, CHF TECHNIQUE: AP Portable chest. COMPARISON: 10/24/2017 FINDINGS: The ET and NG tubes remain in place. The cardiomediastinal silhouette is enlarged. No pneumothorax is seen. The lung volumes are increase d. Interval decreased pulmonary congestion. There is right lower lobe subsegmental atelectasis. Ther e is apparent increase left upper lobe opacity. Unchanged retrocardiac density and probable pleural effusion. The osseous structures are intact. IMPRESSION: ET and NG tubes in place. Decreased edema. Increase left upper lobe opacity. Unchanged retrocardiac infiltrate atelectasis and probable pleural effusion. Cardiomegaly. Physician Vaughn Date Time Electronically viewed and signed by Physician Vaughn on 10/25/2017 08:12 CS/
[2017-10-25] MEDS: PROPOFOL 100 ML IV SCH ×2 (08:30→20:30)
[2017-10-25 08:53] LABS: AADO2 Arterial 436.1 mmHg (7.0-24.0); Allen Test ACCEPTAB; Arterial Base Excess 7.1 mmol/L (-3.0-3); Arterial COHb 0.7 % (0.0-3.0); Arterial Fraction of Oxyhgb 94.8 % (93.0-99.0); Arterial MetHb 0 % (0.0-1.5); Arterial Total Hemglobin 13.8 g/dl (12.0-18.0); MODE VENT - AC
[2017-10-25] MEDS: ENOXAPARIN 100 MG/ML SYG SC SCH ×2 (09:00→21:00)
--- NOTE | 2017-10-25 09:08 | CONS ---
Date/Time of Note Date/Time of Note DATE: 10/25/17 TIME: 09:07 Consult Date/Type/Reason Admit Date/Time Oct 14, 2017 at 20:55 Type of Consultation: Pulmonary Subjective No significant changes. Continues 80% FiO2. Resolved epistaxis. Objective Vital Signs Date Time Temp Pulse Resp B/P Pulse Ox O2 Delivery O2 Flow Rate FiO2 10/25/17 08:00 106 20 123/67 93 Mechanical Ventilator 10/25/17 07:00 100.4 10/25/17 05:02 80 Intake and Output 10/24/17 10/24/17 10/25/17 15:00 23:00 07:00 Intake Total 560.0 ml 592.5 ml 591.5 ml Output Total 785 ml 1065 ml 450 ml Balance -225.0 ml -472.5 ml 141.5 ml Exam GENERAL: Morbidly obese gentleman intubated on mechanical ventilation. VITAL SIGNS: per chart NECK: Supple. No JVD or lymphadenopathy. CARDIAC EXAM: S1, S2. No added sounds or murmurs. CHEST: Diminished air entry bilaterally with rales right base. ABDOMEN: Soft, nontender. No guarding or rebound. EXTREMITIES: No cyanosis, clubbing or edema. NEUROLOGIC: Generalized weakness. No focal deficits. Results/Medications Result Diagram: 10/25/17 0436 10/25/17 0436 Results 24 hrs Chest x-ray pulmonary edema low lung volumes. Laboratory Tests Test 10/24/17 14:59 10/24/17 22:04 10/25/17 04:36 10/25/17 06:09 Bedside Glucose 100 113 107 White Blood Count 13.3 #H Red Blood Count 5.24 Hemoglobin 12.7 L Hematocrit 43.2 Mean Corpuscular Volume 82.4 Mean Corpuscular Hemoglobin 24.2 L Mean Corpuscular Hemoglobin Concent 29.4 L Red Cell Distribution Width 18.3 H Platelet Count 373 Mean Platelet Volume 11.0 H Neutrophils % 61.2 Lymphocytes % 17.1 Monocytes % 17.4 H Eosinophils % 2.2 Basophils % 0.7 Nucleated Red Blood Cells % 0.0 Neutrophils # 8.2 H Lymphocytes # 2.3 Monocytes # 2.3 H Eosinophils # 0.3 Basophils # 0.1 Nucleated Red Blood Cells # 0.0 Sodium Level 151 H Potassium Level 3.6 Chloride Level 104 Carbon Dioxide Level 38 H Anion Gap 13 Blood Urea Nitrogen 28 H Creatinine 1.18 Glucose Level 106 Calcium Level 9.8 Phosphorus Level 4.9 Magnesium Level 2.2 Test 10/25/17 07:00 Blood Gas Specimen Source Blood arterial Arterial Blood Date Drawn 10/25/2017 8:30:59 AM Arterial Blood pH (Temp corrected) 7.419 Arterial Blood pCO2 (Temp correct) 52.2 H Arterial Blood pO2 (Temp corrected) 79.5 L Arterial Blood HCO3 33.0 H Arterial Blood Base Excess 7.1 H Arterial Blood Oxygen Saturation 95.5 Danyel Test ACCEPTAB Arterial Blood Gas Puncture Site Right Radial Arterial Blood Carboxyhemoglobin 0.7 Arterial Blood Methemoglobin 0 Blood Gas A-a O2 Differential 436.1 H Oxyhemoglobin Percent 94.8 Total Hemoglobin 13.8 Blood Gas Temperature 37.0 Blood Gas Respiration Rate 18.0 Blood Gas Actual Respiration Rate 23 Blood Gas Modality VENT - AC FiO2 80.0 Blood Gas Low PEEP Setting 5.0 Blood Gas Notified Whom DT Blood Gas Notified Time 10/25/2017 8:53:00 AM Medications Current Medications Ondansetron HCl (Zofran Inj) 4 mg Q6H PRN IV NAUSEA AND/OR VOMITING Last administered on 10/17/17 03:01; Admin Dose 4 MG; Start 10/14/17 at 21:30 Nitroglycerin (Nitroglycerin (Sl Tab) 0.4 Mg) 1 tab Q5M PRN SL CHEST PAIN; Start 10/14/17 at 21:30 Acetaminophen (Tylenol Tab) 650 mg Q6H PRN PO PAIN LEVEL 1-3 OR FEVER Last administered on 10/24/17 20:43; Admin Dose 650 MG; Start 10/14/17 at 21:30 Enoxaparin Sodium (Lovenox) 245 mg Q12 SC Last administered on 10/24/17 08:20 ; Admin Dose 245 MG; Start 10/16/17 at 01:00 Morphine Sulfate (morphine) 2 mg Q4H PRN IV PAIN LEVEL 7-10 Last administered on 10/17/17 01:54; Admin Dose 2 MG; Start 10/16/17 at 00:00 Multi-Ingredient Ointment (Eucerin Cream) 1 applic BID TOP Last administered on 10/24/17 20:44; Admin Dose 1 APPLIC; Start 10/16/17 at 09:00 Triamcinolone Acetonide 1 applic 1 applic BID TOP Last administered on 20:44; Admin Dose 1 APPLIC; Start 10/16/17 at 14:00 Propofol (Diprivan) 100 ml @ 7.35 mls/hr Q12H IV Last administered on 08:40; Admin Dose 22.05 MLS/HR; Start 10/17/17 at 08:30 Famotidine 20 mg 20 mg HS GTB Last administered on 10/24/17 20:43; Admin Dose 20 MG; Start 10/17/17 at 21:00 Fentanyl (Sublimaze) 100 ml @ 2.5 mls/hr TITRATE IV Last administered on 10/25 04:48; Admin Dose 7.5 MLS/HR; Start 10/18/17 at 10:00 Lorazepam (Ativan) 2 mg Q4H PRN IV AGITATION Last administered on 10/24/17 07 :24; Admin Dose 2 MG; Start 10/18/17 at 21:00 Diagnostic Test (Pha) (Accu-Chek) 1 ea 02 XX Last administered on 10/23/17 01 :35; Admin Dose 1 EA; Start 10/20/17 at 02:00 Miscellaneous Information 1 ea NOTE XX ; Start 10/19/17 at 18:00 Glucose (Glutose) 15 gm Q15M PRN PO DECREASED GLUCOSE; Start 10/19/17 at 18:00 Glucose (Glutose) 22.5 gm Q15M PRN PO DECREASED GLUCOSE; Start 10/19/17 at 18: 00 Dextrose (D50w Syringe) 25 ml Q15M PRN IV DECREASED GLUCOSE; Start 10/19/17 at 18:00 Dextrose (D50w Syringe) 50 ml Q15M PRN IV DECREASED GLUCOSE; Start 10/19/17 at 18:00 Glucagon (Glucagen) 1 mg Q15M PRN IM DECREASED GLUCOSE; Start 10/19/17 at 18: 00 Glucose 15 gm 15 gm Q15M PRN BUCCAL DECREASED GLUCOSE; Start 10/19/17 at 18:00 Midazolam HCl (Versed) 50 ml @ 1 mls/hr TITRATE IV Last administered on 03:26; Admin Dose 10 MLS/HR; Start 10/21/17 at 09:30 IV Flush (NS 10 ml) 10 ml PRN PRN IV IV PROTOCOL; Start 10/22/17 at 19:00 Acetazolamide (Diamox) 250 mg BID GTB Last administered on 10/24/17 20:43; Admin Dose 250 MG; Start 10/23/17 at 10:30 Insulin Aspart (Novolog Insulin Pen) NOVOLOG *MILD* ALGORI... Q8 SC ; Start at 22:00 Docusate Sodium (Colace Liquid Cup) 100 mg BID GTB Last administered on 20:43; Admin Dose 100 MG; Start 10/24/17 at 21:00 Polyethylene Glycol (Miralax) 17 gm DAILY NGT Last administered on 10/24/17 20:43; Admin Dose 17 GM; Start 10/24/17 at 21:00 Assessment/Plan Chief Complaint/Hosp Course IMPRESSION 1. Acute on chronic hypercapnic respiratory failure.Pulmonary edema and possible pneumonia. Improved aeration on chest x-ray today. 2. Morbid obesity. 3. Likely diastolic dysfunction.pulmonary edema. 4. Possible thromboembolic disease. Unable to exclude thromboembolic disease given morbid obesity. Elevated D-dimers. PLAN: 1. Continue anticoagulation for deep vein thrombosis. Continue anticoagulation 2. Mechanical ventilation. Continue Versed and fentanyl. Not ready for weaning 3. Bronchodilators. 4. Gentle diuresis if tolerated 5. Deep venous thrombosis and gastrointestinal prophylaxis. 6. Diamox for chronic hypercapnia. 7. Increase free water. Patient will likely require tracheostomy need family conference to discuss goals of care. Problems: BRIGETTE CODY MD, [facility] Oct 25, 2017 09:08
[2017-10-25] MEDS: DOCUSATE SODIUM 10 MG/ML (10ML CUP) GTB SCH ×2 (09:28→21:54)
[2017-10-25] MEDS: POLYETHYLENE GLYCOL 17 GM PACKET NGT SCH (09:28)
[2017-10-25] MEDS: ACETAZOLAMIDE 250 MG TAB GTB SCH ×2 (09:29→21:54)
[2017-10-25] MEDS: TRIAMCINOLONE ACET 0.1% 15 GM OINT TOP SCH ×2 (09:34→21:55)
[2017-10-25] MEDS: EUCERIN 113 GM CR TOP SCH ×2 (09:35→21:55)
--- NOTE | 2017-10-25 10:29 | PN ---
Date/Time of Note Date/Time of Note DATE: 10/25/17 TIME: 10:27 Assessment/Plan VTE Prophylaxis VTE Prophylaxis Intervention: LMWH Lines/Catheters IV Catheter Type (from Nrs): PICC Line Central line still needed: Yes Urinary Cath still in place: Yes Reason Cath still needed: urinary retention Assessment/Plan Chief Complaint/Hosp Course Assessment/Plan: 47 yo M with super morbid obesity, DM presented to SOB intubated overnight for airway protection in setting of CO2 narcosis and pulmonary edema.P/F ratio consistent with mild ARDS with P/F ~240. 1. SOB/res failure: Acute on chronic hypercapnic respiratory failure. Pulmonary edema and possible pneumonia - ruled out for acute ME during this hospital stay. BNP on admission normal. -low TV ventilatory management, follow pulmonary recommendations -Continue diuretics for now - Diamox for chronic hypercapnia -Add antibiotics now given chest x-ray findings and fever and increased white count, rule out healthcare associated versus aspiration pneumonia?, And check UA. 2. possible PE?: Lower extremity ultrasounds inconclusive. - cont LMWH treatment dose for now, have discontinued warfarin. Upon discussion with pharmacy and pulmonary teams, if patient able to be extubated and take oral medicines, will transition to either Eliquis or Xarelto at that time, b/c per pharmacy, even though apparently cannot use NOAC if BMI >40, recent studies do indicate checking drug specific peak and trough levels for these medicines if having to use DOAC in patients with BMI greater than 40. Given this patient' s history of noncompliance, DO AC would likely be more beneficial to this patient versus Coumadin. 3. LE wounds: sp wound care eval DM2: cont SSI though per RN hasn't yet needed any FEN: cont TFs critical care time: 40 minutes Problems: Subjective 24 Hr Interval Summary Free Text/Dictation Patient not able to be extubated, now on higher FiO2 requirements now. Positive fevers and increased white count as well. Had some nosebleeding epistaxis yesterday, improved today. Lovenox held. Exam/Review of Systems Vital Signs Vitals Vital Signs Date Time Temp Pulse Resp B/P Pulse Ox O2 Delivery O2 Flow Rate FiO2 10/25/17 10:00 103 20 133/76 93 Mechanical Ventilator 10/25/17 07:00 100.4 10/25/17 05:02 80 Intake and Output 10/24/17 10/24/17 10/25/17 15:00 23:00 07:00 Intake Total 560.0 ml 592.5 ml 591.5 ml Output Total 785 ml 1065 ml 450 ml Balance -225.0 ml -472.5 ml 141.5 ml Exam Lying in bed, intubated, morbidly obese Supple distant lung sounds distant heart sounds no rashes LE unchanged Results Result Diagram: 10/25/17 0436 10/25/17 0436 Results 24 hrs Laboratory Tests Test 10/24/17 14:59 10/24/17 22:04 10/25/17 04:36 10/25/17 06:09 Bedside Glucose 100 113 107 White Blood Count 13.3 #H Red Blood Count 5.24 Hemoglobin 12.7 L Hematocrit 43.2 Mean Corpuscular Volume 82.4 Mean Corpuscular Hemoglobin 24.2 L Mean Corpuscular Hemoglobin Concent 29.4 L Red Cell Distribution Width 18.3 H Platelet Count 373 Mean Platelet Volume 11.0 H Neutrophils % 61.2 Lymphocytes % 17.1 Monocytes % 17.4 H Eosinophils % 2.2 Basophils % 0.7 Nucleated Red Blood Cells % 0.0 Neutrophils # 8.2 H Lymphocytes # 2.3 Monocytes # 2.3 H Eosinophils # 0.3 Basophils # 0.1 Nucleated Red Blood Cells # 0.0 Sodium Level 151 H Potassium Level 3.6 Chloride Level 104 Carbon Dioxide Level 38 H Anion Gap 13 Blood Urea Nitrogen 28 H Creatinine 1.18 Glucose Level 106 Calcium Level 9.8 Phosphorus Level 4.9 Magnesium Level 2.2 Test 10/25/17 07:00 Blood Gas Specimen Source Blood arterial Arterial Blood Date Drawn 10/25/2017 8:30:59 AM Arterial Blood pH (Temp corrected) 7.419 Arterial Blood pCO2 (Temp correct) 52.2 H Arterial Blood pO2 (Temp corrected) 79.5 L Arterial Blood HCO3 33.0 H Arterial Blood Base Excess 7.1 H Arterial Blood Oxygen Saturation 95.5 Danyel Test ACCEPTAB Arterial Blood Gas Puncture Site Right Radial Arterial Blood Carboxyhemoglobin 0.7 Arterial Blood Methemoglobin 0 Blood Gas A-a O2 Differential 436.1 H Oxyhemoglobin Percent 94.8 Total Hemoglobin 13.8 Blood Gas Temperature 37.0 Blood Gas Respiration Rate 18.0 Blood Gas Actual Respiration Rate 23 Blood Gas Modality VENT - AC FiO2 80.0 Blood Gas Low PEEP Setting 5.0 Blood Gas Notified Whom DT Blood Gas Notified Time 10/25/2017 8:53:00 AM Medications Medications Current Medications Ondansetron HCl (Zofran Inj) 4 mg Q6H PRN IV NAUSEA AND/OR VOMITING Last administered on 10/17/17 03:01; Admin Dose 4 MG; Start 10/14/17 at 21:30 Nitroglycerin (Nitroglycerin (Sl Tab) 0.4 Mg) 1 tab Q5M PRN SL CHEST PAIN; Start 10/14/17 at 21:30 Acetaminophen (Tylenol Tab) 650 mg Q6H PRN PO PAIN LEVEL 1-3 OR FEVER Last administered on 10/24/17 20:43; Admin Dose 650 MG; Start 10/14/17 at 21:30 Enoxaparin Sodium (Lovenox) 245 mg Q12 SC Last administered on 10/24/17 08:20 ; Admin Dose 245 MG; Start 10/16/17 at 01:00 Morphine Sulfate (morphine) 2 mg Q4H PRN IV PAIN LEVEL 7-10 Last administered on 10/17/17 01:54; Admin Dose 2 MG; Start 10/16/17 at 00:00 Multi-Ingredient Ointment (Eucerin Cream) 1 applic BID TOP Last administered on 10/25/17 09:35; Admin Dose 1 APPLIC; Start 10/16/17 at 09:00 Triamcinolone Acetonide 1 applic 1 applic BID TOP Last administered on 09:34; Admin Dose 1 APPLIC; Start 10/16/17 at 14:00 Propofol (Diprivan) 100 ml @ 7.35 mls/hr Q12H IV Last administered on 08:40; Admin Dose 22.05 MLS/HR; Start 10/17/17 at 08:30 Famotidine 20 mg 20 mg HS GTB Last administered on 10/24/17 20:43; Admin Dose 20 MG; Start 10/17/17 at 21:00 Fentanyl (Sublimaze) 100 ml @ 2.5 mls/hr TITRATE IV Last administered on 10/25 04:48; Admin Dose 7.5 MLS/HR; Start 10/18/17 at 10:00 Lorazepam (Ativan) 2 mg Q4H PRN IV AGITATION Last administered on 10/24/17 07 :24; Admin Dose 2 MG; Start 10/18/17 at 21:00 Diagnostic Test (Pha) (Accu-Chek) 1 ea 02 XX Last administered on 10/23/17 01 :35; Admin Dose 1 EA; Start 10/20/17 at 02:00 Miscellaneous Information 1 ea NOTE XX ; Start 10/19/17 at 18:00 Glucose (Glutose) 15 gm Q15M PRN PO DECREASED GLUCOSE; Start 10/19/17 at 18:00 Glucose (Glutose) 22.5 gm Q15M PRN PO DECREASED GLUCOSE; Start 10/19/17 at 18: 00 Dextrose (D50w Syringe) 25 ml Q15M PRN IV DECREASED GLUCOSE; Start 10/19/17 at 18:00 Dextrose (D50w Syringe) 50 ml Q15M PRN IV DECREASED GLUCOSE; Start 10/19/17 at 18:00 Glucagon (Glucagen) 1 mg Q15M PRN IM DECREASED GLUCOSE; Start 10/19/17 at 18: 00 Glucose 15 gm 15 gm Q15M PRN BUCCAL DECREASED GLUCOSE; Start 10/19/17 at 18:00 Midazolam HCl (Versed) 50 ml @ 1 mls/hr TITRATE IV Last administered on 09:28; Admin Dose 10 MLS/HR; Start 10/21/17 at 09:30 IV Flush (NS 10 ml) 10 ml PRN PRN IV IV PROTOCOL; Start 10/22/17 at 19:00 Acetazolamide (Diamox) 250 mg BID GTB Last administered on 10/25/17 09:29; Admin Dose 250 MG; Start 10/23/17 at 10:30 Insulin Aspart (Novolog Insulin Pen) NOVOLOG *MILD* ALGORI... Q8 SC ; Start at 22:00 Docusate Sodium (Colace Liquid Cup) 100 mg BID GTB Last administered on 09:28; Admin Dose 100 MG; Start 10/24/17 at 21:00 Polyethylene Glycol (Miralax) 17 gm DAILY NGT Last administered on 10/25/17 09:28; Admin Dose 17 GM; Start 10/24/17 at 21:00 DOLLY ESCOBEDO 24, 2017 10:29
[2017-10-25] MEDS ORDERED: CEFEPIME 2GM/50 ML (PMX) 50 ML IVPB SCH (10:30)
[2017-10-25] MEDS ORDERED: VANCOMYCIN IV PER PHARMACY XX SCH (10:30)
[2017-10-25] MEDS: ACETAMINOPHEN 325 MG TAB PO PRN (11:13)
[2017-10-25] MEDS ORDERED: VANCOMYCIN IVPB SCH (13:30)
[2017-10-25] MEDS ORDERED: SOD CHLORIDE 0.9% IVPB SCH (13:30)
[2017-10-25] MEDS: VANCOMYCIN 2 GM in SOD CHLORIDE 0.9% 500 ML IVPB SCH ×2 (14:19→18:27)
[2017-10-25 15:29] LABS: ADD UMIC YES; UR AMORPHOUS CRYSTAL FEW /HPF (NONE SEEN); UR ASCORBIC ACID NEGATIVE (NEGATIVE); UR BILIRUBIN (Dip) NEGATIVE (NEGATIVE); UR BLOOD (Dip) 2+ mg/dL (NEGATIVE); UR CLARITY CLOUDY (CLEAR); UR COLOR RED (YELLOW); UR GLUCOSE (Dip) NEGATIVE (NEGATIVE); UR KETONES (Dip) NEGATIVE (NEGATIVE); UR LEUKOCYTE ESTERASE (Dip) 2+ Leu/ul (NEGATIVE); UR NITRITE (Dip) NEGATIVE (NEGATIVE); UR RBC 47 /HPF (0-5); UR SPECIFIC GRAVITY (Dip) 1.011 (1.003-1.030); UR SQUAMOUS EPITHELIAL CELL FEW /HPF (FEW); UR TOTAL PROTEIN (Dip) NEGATIVE (NEGATIVE); UR UROBILINOGEN (Dip) 2+ mg/dL (NEGATIVE)
[2017-10-25] MEDS ORDERED: POLYETHYLENE GLYCOL 17 GM PACKET NGT SCH (21:00)
[2017-10-25] MEDS: FAMOTIDINE 20 MG TAB GTB SCH (21:54)
[2017-10-25] MEDS: CEFEPIME 2GM/50 ML (PMX) 50 ML IVPB SCH (22:09)
[2017-10-26] VITALS (63 sets, daily range): BP systolic 105–144; BP diastolic 66–94; PULSE 87–116; RESP 16–35
[2017-10-26] MEDS: MIDAZOLAM (DRIP) 50 mg/50 mL 50 ML IV SCH ×5 (01:30→22:52)
[2017-10-26] MEDS: ACCU-CHEK XX SCH (01:51)
[2017-10-26] MEDS: FUROSEMIDE 40 MG INJ IV SCH ×2 (05:55→17:37)
[2017-10-26] MEDS: CEFEPIME 2GM/50 ML (PMX) 50 ML IVPB SCH ×3 (05:55→21:03)
[2017-10-26] MEDS: INSULIN ASPART [NOVOLOG] 3 ML PEN SC SCH ×3 (05:57→21:57)
[2017-10-26 06:43] LABS: ABNORMAL IP MESSAGE 1; BASOPHIL # 0.1 10^3/ul (0.0-0.1); BASOPHILS % 0.6 % (0.0-2.0); EOSINOPHILS # 0.3 10^3/ul (0.0-0.5); HEMATOCRIT 41.7 % (42.0-52.0); HEMOGLOBIN 12.3 g/dl (14.0-18.0); LYMPHOCYTES # 2.4 10^3/ul (0.8-2.9); LYMPHOCYTES % 16.9 % (15.0-51.0); MEAN CORPUSCULAR HEMOGLOBIN 24.7 pg (29.0-33.0); MEAN CORPUSCULAR HGB CONC 29.5 g/dl (32.0-37.0); MEAN CORPUSCULAR VOLUME 83.7 fl (82.0-101.0); MEAN PLATELET VOLUME 11.3 fl (7.4-10.4); MONOCYTES % 14.1 % (0.0-11.0); NEUTROPHIL # 9.3 10^3/ul (1.6-7.5); NEUTROPHILS % 65.1 % (39.0-77.0); PLATELET COUNT 369 10^3/UL (140-415); POSITIVE DIFF @See below; RED BLOOD COUNT 4.98 10^6/ul (4.70-6.10); RED CELL DISTRIBUTION WIDTH 18.8 % (11.5-14.5); WHITE BLOOD COUNT 14.2 10^3/ul (4.8-10.8)
[2017-10-26] MEDS: FENTAnyl (DRIP) 1000 mcg/100mL 100 ML IV SCH ×2 (07:03→21:02)
[2017-10-26 07:27] LABS: CALCIUM 9.1 mg/dl (8.4-10.2); CREATININE 1.06 mg/dl (0.61-1.24); MAGNESIUM 2.1 mg/dl (1.7-2.5); PHOSPHORUS 4.7 mg/dl (2.5-4.9)
[2017-10-26] MEDS: ACETAZOLAMIDE 250 MG TAB GTB SCH ×2 (08:05→20:31)
[2017-10-26] MEDS: DOCUSATE SODIUM 10 MG/ML (10ML CUP) GTB SCH ×2 (08:05→20:31)
--- NOTE | 2017-10-26 09:40 | CONS ---
Date/Time of Note Date/Time of Note DATE: 10/26/17 TIME: 09:39 Consult Date/Type/Reason Admit Date/Time Oct 14, 2017 at 20:55 Type of Consultation: Pulmonary Subjective Patient remains comfortable. Continues FiO2 of 80%. Objective Vital Signs Date Time Temp Pulse Resp B/P Pulse Ox O2 Delivery O2 Flow Rate FiO2 10/26/17 08:30 101 21 95 10/26/17 08:00 80 10/26/17 08:00 123/77 Mechanical Ventilator 10/26/17 04:00 98.0 Intake and Output 10/25/17 10/25/17 10/26/17 15:00 23:00 07:00 Intake Total 817.5 ml 1472.5 ml 660.0 ml Output Total 710 ml 1500 ml 780 ml Balance 107.5 ml -27.5 ml -120.0 ml Exam GENERAL: Morbidly obese gentleman intubated on mechanical ventilation. VITAL SIGNS: per chart NECK: Supple. No JVD or lymphadenopathy. CARDIAC EXAM: S1, S2. No added sounds or murmurs. CHEST: Diminished air entry bilaterally with rales right base. ABDOMEN: Soft, nontender. No guarding or rebound. EXTREMITIES: No cyanosis, clubbing or edema. NEUROLOGIC: Generalized weakness. No focal deficits. Results/Medications Result Diagram: 10/26/17 0500 10/26/17 0500 Results 24 hrs Laboratory Tests Test 10/25/17 11:06 10/25/17 14:11 10/25/17 22:12 10/26/17 05:00 Urine Color RED Urine Clarity CLOUDY A Urine pH 6.0 Urine Specific [place] 1.011 Urine Ketones NEGATIVE Urine Nitrite NEGATIVE Urine Bilirubin NEGATIVE Urine Urobilinogen 2+ H Urine Leukocyte Esterase 2+ H Urine Microscopic RBC 47 H Urine Microscopic WBC 36 H Urine Squamous Epithelial Cells FEW Urine Amorphous Crystals FEW A Urine Hemoglobin 2+ H Urine Glucose NEGATIVE Urine Total Protein NEGATIVE Bedside Glucose 113 109 White Blood Count 14.2 H Red Blood Count 4.98 Hemoglobin 12.3 L Hematocrit 41.7 L Mean Corpuscular Volume 83.7 Mean Corpuscular Hemoglobin 24.7 L Mean Corpuscular Hemoglobin Concent 29.5 L Red Cell Distribution Width 18.8 H Platelet Count 369 Mean Platelet Volume 11.3 H Neutrophils % 65.1 Lymphocytes % 16.9 Monocytes % 14.1 H Eosinophils % 2.0 Basophils % 0.6 Nucleated Red Blood Cells % 0.0 Neutrophils # 9.3 H Lymphocytes # 2.4 Monocytes # 2.0 H Eosinophils # 0.3 Basophils # 0.1 Nucleated Red Blood Cells # 0.0 Sodium Level 153 H Potassium Level 4.0 Chloride Level 106 Carbon Dioxide Level 34 H Anion Gap 17 H Blood Urea Nitrogen 29 H Creatinine 1.06 Glucose Level 112 Calcium Level 9.1 Phosphorus Level 4.7 Magnesium Level 2.1 Test 10/26/17 05:57 Bedside Glucose 101 Medications Current Medications Ondansetron HCl (Zofran Inj) 4 mg Q6H PRN IV NAUSEA AND/OR VOMITING Last administered on 10/17/17 03:01; Admin Dose 4 MG; Start 10/14/17 at 21:30 Nitroglycerin (Nitroglycerin (Sl Tab) 0.4 Mg) 1 tab Q5M PRN SL CHEST PAIN; Start 10/14/17 at 21:30 Acetaminophen (Tylenol Tab) 650 mg Q6H PRN PO PAIN LEVEL 1-3 OR FEVER Last administered on 10/25/17 11:13; Admin Dose 650 MG; Start 10/14/17 at 21:30 Enoxaparin Sodium (Lovenox) 245 mg Q12 SC Last administered on 10/24/17 08:20 ; Admin Dose 245 MG; Start 10/16/17 at 01:00 Morphine Sulfate (morphine) 2 mg Q4H PRN IV PAIN LEVEL 7-10 Last administered on 10/17/17 01:54; Admin Dose 2 MG; Start 10/16/17 at 00:00 Multi-Ingredient Ointment (Eucerin Cream) 1 applic BID TOP Last administered on 10/25/17 21:55; Admin Dose 1 APPLIC; Start 10/16/17 at 09:00 Triamcinolone Acetonide (Kenalog 0.1% Oint) 1 applic BID TOP Last administered on 10/25/17 21:55; Admin Dose 1 APPLIC; Start 10/16/17 at 14:00 Famotidine 20 mg 20 mg HS GTB Last administered on 10/25/17 21:54; Admin Dose 20 MG; Start 10/17/17 at 21:00 Fentanyl (Sublimaze) 100 ml @ 2.5 mls/hr TITRATE IV Last administered on 10/26 07:03; Admin Dose 7.5 MLS/HR; Start 10/18/17 at 10:00 Lorazepam (Ativan) 2 mg Q4H PRN IV AGITATION Last administered on 10/24/17 07 :24; Admin Dose 2 MG; Start 10/18/17 at 21:00 Diagnostic Test (Pha) (Accu-Chek) 1 ea 02 XX Last administered on 10/23/17 01 :35; Admin Dose 1 EA; Start 10/20/17 at 02:00 Miscellaneous Information 1 ea NOTE XX ; Start 10/19/17 at 18:00 Glucose (Glutose) 15 gm Q15M PRN PO DECREASED GLUCOSE; Start 10/19/17 at 18:00 Glucose (Glutose) 22.5 gm Q15M PRN PO DECREASED GLUCOSE; Start 10/19/17 at 18: 00 Dextrose (D50w Syringe) 25 ml Q15M PRN IV DECREASED GLUCOSE; Start 10/19/17 at 18:00 Dextrose (D50w Syringe) 50 ml Q15M PRN IV DECREASED GLUCOSE; Start 10/19/17 at 18:00 Glucagon (Glucagen) 1 mg Q15M PRN IM DECREASED GLUCOSE; Start 10/19/17 at 18: 00 Glucose 15 gm 15 gm Q15M PRN BUCCAL DECREASED GLUCOSE; Start 10/19/17 at 18:00 Midazolam HCl (Versed) 50 ml @ 1 mls/hr TITRATE IV Last administered on 07:04; Admin Dose 10 MLS/HR; Start 10/21/17 at 09:30 IV Flush (NS 10 ml) 10 ml PRN PRN IV IV PROTOCOL; Start 10/22/17 at 19:00 Acetazolamide (Diamox) 250 mg BID GTB Last administered on 10/26/17 08:05; Admin Dose 250 MG; Start 10/23/17 at 10:30 Insulin Aspart (Novolog Insulin Pen) NOVOLOG *MILD* ALGORI... Q8 SC ; Start at 22:00 Docusate Sodium (Colace Liquid Cup) 100 mg BID GTB Last administered on 08:05; Admin Dose 100 MG; Start 10/24/17 at 21:00 Polyethylene Glycol 17 gm 17 gm DAILY NGT Last administered on 11/24/17at 09:28 ; Admin Dose 17 GM; Start 10/24/17 at 21:00 Cefepime HCl 50 ml @ 100 mls/hr Q8 IVPB Last administered on 10/26/17t 05:55 ; Admin Dose 100 MLS/HR; Start 10/25/17 at 22:00 Vancomycin HCl/ Sodium Chloride (Vancocin/NS) 500 ml @ 125 mls/hr Q12H IVPB ; Start 10/26/17 at 10:00 Assessment/Plan Chief Complaint/Hosp Course IMPRESSION 1. Acute on chronic hypercapnic respiratory failure.Pulmonary edema and possible pneumonia. Improved aeration on chest x-ray today. 2. Morbid obesity. 3. Likely diastolic dysfunction.pulmonary edema. 4. Possible thromboembolic disease. Unable to exclude thromboembolic disease given morbid obesity. Elevated D-dimers. PLAN: 1. Continue anticoagulation for deep vein thrombosis. Continue anticoagulation 2. Mechanical ventilation. Continue Versed and fentanyl. Not ready for weaning 3. Bronchodilators. 4. Gentle diuresis if tolerated 5. Deep venous thrombosis and gastrointestinal prophylaxis. 6. Diamox for chronic hypercapnia. 7. Increase free water. Patient will likely require tracheostomy need family conference to discuss goals of care. Problems: BRIGETTE CODY MD, [facility] Oct 26, 2017 09:40
[2017-10-26] MEDS ORDERED: VANCOMYCIN 2 GM in SOD CHLORIDE 0.9% 500 ML IVPB SCH (10:00)
--- NOTE | 2017-10-26 10:00 | PN ---
Date/Time of Note Date/Time of Note DATE: 10/26/17 TIME: 09:55 Assessment/Plan VTE Prophylaxis VTE Prophylaxis Intervention: LMWH Lines/Catheters IV [facility] PICC Line Central line still needed: Yes Urinary Cath still in place: Yes Reason Cath still needed: urinary retention Assessment/Plan Chief Complaint/Hosp Course S: Patient still intubated, on high FiO2 requirements. Nosebleeding is still present, although less in intensity now, Lovenox has been held intermittently the last 1-2 days. No fevers overnight. O: VS (see below) PE: Lying in bed, intubated, morbidly obese Supple distant lung sounds distant heart sounds no rashes LE unchanged Assessment/Plan: 47 yo M with super morbid obesity, DM presented to SOB intubated overnight for airway protection in setting of CO2 narcosis and pulmonary edema.P/F ratio consistent with mild ARDS with P/F ~240. 1. SOB/res failure: Acute on chronic hypercapnic respiratory failure. Pulmonary edema and likely pneumonia - ruled out for acute ND during this hospital stay. BNP on admission normal. -low TV ventilatory management, follow pulmonary recommendations -Continue diuretics for now - Diamox for chronic hypercapnia -Continue antibiotics (treating both pneumonia and now positive UTI) 2. possible PE?: Lower extremity ultrasounds inconclusive. Has been on LMWH treatment dose for now, have discontinued warfarin a few days ago. However patient has been having nose bleeding over the last 2 days, and Lovenox has been held intermittently since then. -Monitor for bleeding, when resolves, consider restarting a low molecular weight heparin. -Upon discussion with pharmacy and pulmonary teams, if patient able to be extubated and take oral medicines, will transition to either Eliquis or Xarelto at that time, b/c per pharmacy, even though apparently cannot use NOAC if BMI > 40, recent studies do indicate checking drug specific peak and trough levels for these medicines if having to use DOAC in patients with BMI greater than 40. Given this patient's history of noncompliance, DO AC would likely be more beneficial to this patient versus Coumadin. 3. LE wounds: Continue wound care per wound care team. DM2: cont SSI as needed FEN: cont TFs Dispo: Per pulmonary team, patient may need to have tracheostomy tube placement as he has been unable to be extubated and remains on the vent. Will discuss with family about this. critical care time: 40 minutes Problems: Exam/Review of Systems Vital Signs Vitals Vital Signs Date Time Temp Pulse Resp B/P Pulse Ox O2 Delivery O2 Flow Rate FiO2 10/26/17 08:30 101 21 95 10/26/17 08:00 80 10/26/17 08:00 123/77 Mechanical Ventilator 10/26/17 04:00 98.0 Intake and Output 10/25/17 10/25/17 10/26/17 15:00 23:00 07:00 Intake Total 817.5 ml 1472.5 ml 660.0 ml Output Total 710 ml 1500 ml 780 ml Balance 107.5 ml -27.5 ml -120.0 ml Results Result Diagram: 10/26/17 0500 10/26/17 0500 Results 24 hrs Laboratory Tests Test 10/25/17 11:06 10/25/17 14:11 10/25/17 22:12 10/26/17 05:00 Urine Color RED Urine Clarity CLOUDY A Urine pH 6.0 Urine Specific [place] 1.011 Urine Ketones NEGATIVE Urine Nitrite NEGATIVE Urine Bilirubin NEGATIVE Urine Urobilinogen 2+ H Urine Leukocyte Esterase 2+ H Urine Microscopic RBC 47 H Urine Microscopic WBC 36 H Urine Squamous Epithelial Cells FEW Urine Amorphous Crystals FEW A Urine Hemoglobin 2+ H Urine Glucose NEGATIVE Urine Total Protein NEGATIVE Bedside Glucose 113 109 White Blood Count 14.2 H Red Blood Count 4.98 Hemoglobin 12.3 L Hematocrit 41.7 L Mean Corpuscular Volume 83.7 Mean Corpuscular Hemoglobin 24.7 L Mean Corpuscular Hemoglobin Concent 29.5 L Red Cell Distribution Width 18.8 H Platelet Count 369 Mean Platelet Volume 11.3 H Neutrophils % 65.1 Lymphocytes % 16.9 Monocytes % 14.1 H Eosinophils % 2.0 Basophils % 0.6 Nucleated Red Blood Cells % 0.0 Neutrophils # 9.3 H Lymphocytes # 2.4 Monocytes # 2.0 H Eosinophils # 0.3 Basophils # 0.1 Nucleated Red Blood Cells # 0.0 Sodium Level 153 H Potassium Level 4.0 Chloride Level 106 Carbon Dioxide Level 34 H Anion Gap 17 H Blood Urea Nitrogen 29 H Creatinine 1.06 Glucose Level 112 Calcium Level 9.1 Phosphorus Level 4.7 Magnesium Level 2.1 Test 10/26/17 05:57 Bedside Glucose 101 Medications Medications Current Medications Ondansetron HCl (Zofran Inj) 4 mg Q6H PRN IV NAUSEA AND/OR VOMITING Last administered on 10/17/17 03:01; Admin Dose 4 MG; Start 10/14/17 at 21:30 Nitroglycerin (Nitroglycerin (Sl Tab) 0.4 Mg) 1 tab Q5M PRN SL CHEST PAIN; Start 10/14/17 at 21:30 Acetaminophen (Tylenol Tab) 650 mg Q6H PRN PO PAIN LEVEL 1-3 OR FEVER Last administered on 10/25/17 11:13; Admin Dose 650 MG; Start 10/14/17 at 21:30 Enoxaparin Sodium (Lovenox) 245 mg Q12 SC Last administered on 10/24/17 08:20 ; Admin Dose 245 MG; Start 10/16/17 at 01:00 Morphine Sulfate (morphine) 2 mg Q4H PRN IV PAIN LEVEL 7-10 Last administered on 10/17/17 01:54; Admin Dose 2 MG; Start 10/16/17 at 00:00 Multi-Ingredient Ointment (Eucerin Cream) 1 applic BID TOP Last administered on 10/25/17 21:55; Admin Dose 1 APPLIC; Start 10/16/17 at 09:00 Triamcinolone Acetonide (Kenalog 0.1% Oint) 1 applic BID TOP Last administered on 10/25/17 21:55; Admin Dose 1 APPLIC; Start 10/16/17 at 14:00 Famotidine 20 mg 20 mg HS GTB Last administered on 10/25/17 21:54; Admin Dose 20 MG; Start 10/17/17 at 21:00 Fentanyl (Sublimaze) 100 ml @ 2.5 mls/hr TITRATE IV Last administered on 10/26 07:03; Admin Dose 7.5 MLS/HR; Start 10/18/17 at 10:00 Lorazepam (Ativan) 2 mg Q4H PRN IV AGITATION Last administered on 10/24/17 07 :24; Admin Dose 2 MG; Start 10/18/17 at 21:00 Diagnostic Test (Pha) (Accu-Chek) 1 ea 02 XX Last administered on 10/23/17 01 :35; Admin Dose 1 EA; Start 10/20/17 at 02:00 Miscellaneous Information 1 ea NOTE XX ; Start 10/19/17 at 18:00 Glucose (Glutose) 15 gm Q15M PRN PO DECREASED GLUCOSE; Start 10/19/17 at 18:00 Glucose (Glutose) 22.5 gm Q15M PRN PO DECREASED GLUCOSE; Start 10/19/17 at 18: 00 Dextrose (D50w Syringe) 25 ml Q15M PRN IV DECREASED GLUCOSE; Start 10/19/17 at 18:00 Dextrose (D50w Syringe) 50 ml Q15M PRN IV DECREASED GLUCOSE; Start 10/19/17 at 18:00 Glucagon (Glucagen) 1 mg Q15M PRN IM DECREASED GLUCOSE; Start 10/19/17 at 18: 00 Glucose 15 gm 15 gm Q15M PRN BUCCAL DECREASED GLUCOSE; Start 10/19/17 at 18:00 Midazolam HCl (Versed) 50 ml @ 1 mls/hr TITRATE IV Last administered on 07:04; Admin Dose 10 MLS/HR; Start 10/21/17 at 09:30 IV Flush (NS 10 ml) 10 ml PRN PRN IV IV PROTOCOL; Start 10/22/17 at 19:00 Acetazolamide (Diamox) 250 mg BID GTB Last administered on 10/26/17 08:05; Admin Dose 250 MG; Start 10/23/17 at 10:30 Insulin Aspart (Novolog Insulin Pen) NOVOLOG *MILD* ALGORI... Q8 SC ; Start at 22:00 Docusate Sodium (Colace Liquid Cup) 100 mg BID GTB Last administered on 08:05; Admin Dose 100 MG; Start 10/24/17 at 21:00 Polyethylene Glycol 17 gm 17 gm DAILY NGT Last administered on 10/25/17 09:28 ; Admin Dose 17 GM; Start 10/24/17 at 21:00 Cefepime HCl 50 ml @ 100 mls/hr Q8 IVPB Last administered on 10/26/17 05:55 ; Admin Dose 100 MLS/HR; Start 10/25/17 at 22:00 Vancomycin HCl/ Sodium Chloride (Vancocin/NS) 500 ml @ 125 mls/hr Q12H IVPB ; Start 10/26/17 at 10:00 DOLLY ESCOBEDO Oct 26, 2017 10:00
[2017-10-26 10:45] LABS: BASOPHILS % (M) 1 % (0-2); EOSINOPHILS % (M) 3 % (0-7); GIANT THROMBO% (M) 1 % (0-0); MONOCYTES % (M) 13 % (0-11); PLATELET ESTIMATE NORMAL; POIKILOCYTOSIS 1+ (0-0); POLYCHROMASIA 2+ (0-0); PROMYELOCYTES #M 0.1 10^3/ul (0-0); PROMYELOCYTES % (M) 1 % (0-0)
[2017-10-26] MEDS: ENOXAPARIN 100 MG/ML SYG SC SCH ×2 (12:00→20:30)
[2017-10-26] MEDS: EUCERIN 113 GM CR TOP SCH ×2 (12:00→20:31)
[2017-10-26] MEDS: TRIAMCINOLONE ACET 0.1% 15 GM OINT TOP SCH ×2 (12:20→20:31)
[2017-10-26] MEDS: SOD CHLORIDE 0.9% IVPB SCH ×2 (12:22→21:57)
[2017-10-26] MEDS: VANCOMYCIN IVPB SCH ×2 (12:22→21:57)
[2017-10-26] MEDS: DEXTROSE 5% 1,000 ML IV SCH ×2 (12:32→23:20)
[2017-10-26] MEDS: FAMOTIDINE 20 MG TAB GTB SCH (20:31)
[2017-10-27] VITALS (75 sets, daily range): BP systolic 116–150; BP diastolic 63–91; PULSE 79–100; RESP 16–41
[2017-10-27] MEDS: ACCU-CHEK XX SCH (02:00)
[2017-10-27] MEDS: MIDAZOLAM (DRIP) 50 mg/50 mL 50 ML IV SCH ×5 (04:48→21:10)
[2017-10-27] MEDS: DEXTROSE 5% 1,000 ML IV SCH ×3 (04:53→19:00)
[2017-10-27] MEDS: FUROSEMIDE 40 MG INJ IV SCH ×2 (05:00→17:47)
[2017-10-27] MEDS: CEFEPIME 2GM/50 ML (PMX) 50 ML IVPB SCH ×3 (05:00→21:10)
[2017-10-27 05:52] LABS: ABNORMAL IP MESSAGE 1; BASOPHIL # 0.1 10^3/ul (0.0-0.1); BASOPHILS % 0.6 % (0.0-2.0); EOSINOPHILS # 0.4 10^3/ul (0.0-0.5); EOSINOPHILS % 2.4 % (0.0-7.0); HEMATOCRIT 40.4 % (42.0-52.0); HEMOGLOBIN 11.5 g/dl (14.0-18.0); LYMPHOCYTES # 2.8 10^3/ul (0.8-2.9); LYMPHOCYTES % 19.8 % (15.0-51.0); MEAN CORPUSCULAR HGB CONC 28.5 g/dl (32.0-37.0); MEAN CORPUSCULAR VOLUME 84.3 fl (82.0-101.0); MEAN PLATELET VOLUME 11.4 fl (7.4-10.4); MONOCYTE # 1.9 10^3/ul (0.3-0.9); MONOCYTES % 13.4 % (0.0-11.0); NEUTROPHIL # 8.9 10^3/ul (1.6-7.5); NEUTROPHILS % 62.4 % (39.0-77.0); PLATELET COUNT 389 10^3/UL (140-415); POSITIVE DIFF @See below; RED BLOOD COUNT 4.79 10^6/ul (4.70-6.10); RED CELL DISTRIBUTION WIDTH 18.2 % (11.5-14.5); WHITE BLOOD COUNT 14.3 10^3/ul (4.8-10.8)
[2017-10-27] MEDS: INSULIN ASPART [NOVOLOG] 3 ML PEN SC SCH ×3 (06:00→21:12)
[2017-10-27 06:19] LABS: CALCIUM 9.1 mg/dl (8.4-10.2); CREATININE 1.1 mg/dl (0.61-1.24)
[2017-10-27 08:39] LABS: AADO2 Arterial 292.2 mmHg (7.0-24.0); Allen Test ACCEPTAB; Arterial Base Excess 6.7 mmol/L (-3.0-3); Arterial COHb 0.4 % (0.0-3.0); Arterial Fraction of Oxyhgb 93.9 % (93.0-99.0); Arterial HCO3 33.1 mmol/L (22.0-26.0); Arterial MetHb 0.1 % (0.0-1.5); MODE VENT - AC
[2017-10-27] MEDS: ENOXAPARIN 100 MG/ML SYG SC SCH ×2 (09:00→21:00)
[2017-10-27] MEDS: FENTAnyl (DRIP) 1000 mcg/100mL 100 ML IV SCH ×3 (09:18→23:29)
[2017-10-27] MEDS: TRIAMCINOLONE ACET 0.1% 15 GM OINT TOP SCH ×2 (09:23→21:11)
[2017-10-27] MEDS: POLYETHYLENE GLYCOL 17 GM PACKET NGT SCH (09:23)
[2017-10-27] MEDS: EUCERIN 113 GM CR TOP SCH ×2 (09:23→21:11)
[2017-10-27] MEDS: ACETAZOLAMIDE 250 MG TAB GTB SCH ×2 (09:23→21:10)
[2017-10-27] MEDS: DOCUSATE SODIUM 10 MG/ML (10ML CUP) GTB SCH ×2 (09:23→21:10)
[2017-10-27] MEDS: SOD CHLORIDE 0.9% IVPB SCH (10:22)
[2017-10-27] MEDS: VANCOMYCIN IVPB SCH (10:22)
--- NOTE | 2017-10-27 10:23 | RADRPT ---
PROCEDURE: XR Chest. CLINICAL INDICATION: Pneumonia . Congestive heart failure TECHNIQUE: Single frontal chest x-ray. COMPARISON: 10/25/2017 FINDINGS: Endotracheal tube and nasogastric tube are in place unchanged. Cardiomegaly with hilar congestion an d perihilar edema are unchanged. There is decreased opacity of the left hemithorax consistent with i mproving infiltrate or effusion. Linear atelectasis in the right lower lung is present. .. No evide nce of pneumothorax.. The osseous structures are intact. IMPRESSION: Cardiomegaly with congestive heart failure and mild perihilar edema unchanged. Decreased left pulmonary infiltrates and effusions.. RPTAT: QQ .Tico Barroso MD, MD Date Time Electronically viewed and signed by .Tico Barroso MD, on 10/27/2017 10:23 .L/
--- NOTE | 2017-10-27 10:42 | CONS ---
Date/Time of Note Date/Time of Note DATE: 10/27/17 TIME: 10:42 Consult Date/Type/Reason Admit Date/Time Oct 14, 2017 at 20:55 Type of Consultation: Pulmonary Subjective Remains intubated sedated on mechanical ventilation. No significant changes. Objective Vital Signs Date Time Temp Pulse Resp B/P Pulse Ox O2 Delivery O2 Flow Rate FiO2 10/27/17 09:30 93 20 132/78 90 Mechanical Ventilator 10/27/17 08:00 60 10/27/17 07:30 98.9 Intake and Output 10/26/17 10/26/17 10/27/17 15:00 23:00 07:00 Intake Total 1435.0 ml 1235.0 ml 1760.0 ml Output Total 1360 ml 830 ml 570 ml Balance 75.0 ml 405.0 ml 1190.0 ml Exam GENERAL: Morbidly obese gentleman intubated on mechanical ventilation appears comfortable at rest VITAL SIGNS: per chart NECK: Supple. No JVD or lymphadenopathy. CARDIAC EXAM: S1, S2. No added sounds or murmurs. CHEST: Few rales bilaterally eezes ABDOMEN: Soft, nontender. No guarding or rebound. Diminished bowel sounds EXTREMITIES: No cyanosis, clubbing or edema. NEUROLOGIC: Generalized weakness. Results/Medications Result Diagram: 10/27/17 0500 10/27/17 0500 Results 24 hrs Laboratory Tests Test 10/26/17 13:53 10/26/17 21:56 10/27/17 05:00 10/27/17 05:52 Bedside Glucose 113 124 110 White Blood Count 14.3 H Red Blood Count 4.79 Hemoglobin 11.5 L Hematocrit 40.4 L Mean Corpuscular Volume 84.3 Mean Corpuscular Hemoglobin 24.0 L Mean Corpuscular Hemoglobin Concent 28.5 L Red Cell Distribution Width 18.2 H Platelet Count 389 Mean Platelet Volume 11.4 H Neutrophils % 62.4 Lymphocytes % 19.8 Monocytes % 13.4 H Eosinophils % 2.4 Basophils % 0.6 Nucleated Red Blood Cells % 0.0 Neutrophils # 8.9 H Lymphocytes # 2.8 Monocytes # 1.9 H Eosinophils # 0.4 Basophils # 0.1 Nucleated Red Blood Cells # 0.0 Sodium Level 153 H Potassium Level 4.0 Chloride Level 109 Carbon Dioxide Level 34 H Anion Gap 14 Blood Urea Nitrogen 28 H Creatinine 1.10 Glucose Level 102 Calcium Level 9.1 Test 10/27/17 07:00 10/27/17 08:56 10/27/17 09:03 Blood Gas Specimen Source Blood arterial Arterial Blood Date Drawn 10/27/2017 8:25:47 AM Arterial Blood pH (Temp corrected) 7.397 Arterial Blood pCO2 (Temp correct) 55.0 H Arterial Blood pO2 (Temp corrected) 75.1 L Arterial Blood HCO3 33.1 H Arterial Blood Base Excess 6.7 H Arterial Blood Oxygen Saturation 94.4 L Danyel Test ACCEPTAB Arterial Blood Gas Puncture Site Right Radial Arterial Blood Carboxyhemoglobin 0.4 Arterial Blood Methemoglobin 0.1 Blood Gas A-a O2 Differential 292.2 H Oxyhemoglobin Percent 93.9 Total Hemoglobin 13.0 Blood Gas Temperature 37.0 Blood Gas Respiration Rate 18.0 Blood Gas Actual Respiration Rate 20 Blood Gas Modality VENT - AC FiO2 60.0 Blood Gas Tidal Volume 550.0 Blood Gas Low PEEP Setting 5.0 Blood Gas Notified Whom TRES MACIEL Blood Gas Notified Time 10/27/2017 8:39:53 AM Bedside Glucose 110 Vancomycin Level Trough 18.0 Medications Current Medications Ondansetron HCl (Zofran Inj) 4 mg Q6H PRN IV NAUSEA AND/OR VOMITING Last administered on 10/17/17 03:01; Admin Dose 4 MG; Start 10/14/17 at 21:30 Nitroglycerin (Nitroglycerin (Sl Tab) 0.4 Mg) 1 tab Q5M PRN SL CHEST PAIN; Start 10/14/17 at 21:30 Acetaminophen (Tylenol Tab) 650 mg Q6H PRN PO PAIN LEVEL 1-3 OR FEVER Last administered on 10/25/17 11:13; Admin Dose 650 MG; Start 10/14/17 at 21:30 Enoxaparin Sodium (Lovenox) 245 mg Q12 SC Last administered on 10/24/17 08:20 ; Admin Dose 245 MG; Start 10/16/17 at 01:00 Morphine Sulfate (morphine) 2 mg Q4H PRN IV PAIN LEVEL 7-10 Last administered on 10/17/17 01:54; Admin Dose 2 MG; Start 10/16/17 at 00:00 Multi-Ingredient Ointment (Eucerin Cream) 1 applic BID TOP Last administered on 10/27/17 09:23; Admin Dose 1 APPLIC; Start 10/16/17 at 09:00 Triamcinolone Acetonide (Kenalog 0.1% Oint) 1 applic BID TOP Last administered on 10/27/17 09:23; Admin Dose 1 APPLIC; Start 10/16/17 at 14:00 Famotidine 20 mg 20 mg HS GTB Last administered on 10/26/17 20:31; Admin Dose 20 MG; Start 10/17/17 at 21:00 Fentanyl (Sublimaze) 100 ml @ 2.5 mls/hr TITRATE IV Last administered on 10/27 09:18; Admin Dose 7.5 MLS/HR; Start 10/18/17 at 10:00 Lorazepam (Ativan) 2 mg Q4H PRN IV AGITATION Last administered on 10/24/17 07 :24; Admin Dose 2 MG; Start 10/18/17 at 21:00 Diagnostic Test (Pha) (Accu-Chek) 1 ea 02 XX Last administered on 10/23/17 01 :35; Admin Dose 1 EA; Start 10/20/17 at 02:00 Miscellaneous Information 1 ea NOTE XX ; Start 10/19/17 at 18:00 Glucose (Glutose) 15 gm Q15M PRN PO DECREASED GLUCOSE; Start 10/19/17 at 18:00 Glucose (Glutose) 22.5 gm Q15M PRN PO DECREASED GLUCOSE; Start 10/19/17 at 18: 00 Dextrose (D50w Syringe) 25 ml Q15M PRN IV DECREASED GLUCOSE; Start 10/19/17 at 18:00 Dextrose (D50w Syringe) 50 ml Q15M PRN IV DECREASED GLUCOSE; Start 10/19/17 at 18:00 Glucagon (Glucagen) 1 mg Q15M PRN IM DECREASED GLUCOSE; Start 10/19/17 at 18: 00 Glucose 15 gm 15 gm Q15M PRN BUCCAL DECREASED GLUCOSE; Start 10/19/17 at 18:00 Midazolam HCl (Versed) 50 ml @ 1 mls/hr TITRATE IV Last administered on 09:18; Admin Dose 10 MLS/HR; Start 10/21/17 at 09:30 IV Flush (NS 10 ml) 10 ml PRN PRN IV IV PROTOCOL; Start 10/22/17 at 19:00 Acetazolamide (Diamox) 250 mg BID GTB Last administered on 10/27/17 09:23; Admin Dose 250 MG; Start 10/23/17 at 10:30 Insulin Aspart (Novolog Insulin Pen) NOVOLOG *MILD* ALGORI... Q8 SC ; Start at 22:00 Docusate Sodium (Colace Liquid Cup) 100 mg BID GTB Last administered on 09:23; Admin Dose 100 MG; Start 10/24/17 at 21:00 Polyethylene Glycol 17 gm 17 gm DAILY NGT Last administered on 10/27/17 09:23 ; Admin Dose 17 GM; Start 10/24/17 at 21:00 Cefepime HCl 50 ml @ 100 mls/hr Q8 IVPB Last administered on 10/27/17 05:00 ; Admin Dose 100 MLS/HR; Start 10/25/17 at 22:00 Vancomycin HCl 2.25 gm/Sodium Chloride 500 ml @ 125 mls/hr Q12H IVPB Last administered on 10/27/17 10:22; Admin Dose 125 MLS/HR; Start 10/26/17 at 10: 00; Stop 10/27/17 at 14:00 Vancomycin HCl/ Sodium Chloride (Vancocin/NS) 500 ml @ 125 mls/hr Q12H IVPB ; Start 10/27/17 at 22:00 Assessment/Plan Chief Complaint/Hosp Course IMPRESSION 1. Acute on chronic hypercapnic respiratory failure.Pulmonary edema and possible pneumonia. Improved aeration on chest x-ray today. 2. Morbid obesity. 3. Likely diastolic dysfunction.pulmonary edema. 4. Possible thromboembolic disease. Unable to exclude thromboembolic disease given morbid obesity. Elevated D-dimers. PLAN: 1. Continue anticoagulation for deep vein thrombosis. Continue anticoagulation 2. Mechanical ventilation. Continue Versed and fentanyl. Not ready for weaning 3. Bronchodilators. 4. Gentle diuresis if tolerated 5. Deep venous thrombosis and gastrointestinal prophylaxis. 6. Diamox for chronic hypercapnia. 7. Increase free water. Patient will likely require tracheostomy need family conference to discuss goals of care. Problems: BRIGETTE CODY MD, [facility] Oct 27, 2017 10:42
--- NOTE | 2017-10-27 12:45 | PN ---
Date/Time of Note Date/Time of Note DATE: 10/27/17 TIME: 12:42 Assessment/Plan VTE Prophylaxis VTE Prophylaxis Intervention: LMWH Lines/Catheters [facility] PICC Line Central line still needed: Yes Urinary Cath still in place: Yes Reason Cath still needed: urinary retention Assessment/Plan Chief Complaint/Hosp Course S: Patient still intubated, on slightly less FiO2 requirements today. Some bleeding is still present upon suctioning from nasal area and ET tube, Lovenox has been held intermittently the last 1-2 days because of this. No fevers overnight. O: VS (see below) PE: Lying in bed, intubated, morbidly obese Supple distant lung sounds distant heart sounds no rashes LE unchanged Assessment/Plan: 47 yo M with super morbid obesity, DM presented to SOB intubated overnight for airway protection in setting of CO2 narcosis and pulmonary edema.P/F ratio consistent with mild ARDS with P/F ~240. 1. SOB/res failure: Acute on chronic hypercapnic respiratory failure. Pulmonary edema and likely pneumonia - ruled out for acute AR during this hospital stay. BNP on admission normal. -low TV ventilatory management, follow pulmonary recommendations -Continue diuretics for now - Diamox for chronic hypercapnia -Continue antibiotics (treating both pneumonia and now positive UTI) 2. possible PE?: Lower extremity ultrasounds inconclusive. Has been on LMWH treatment dose for now, have discontinued warfarin a few days ago. However patient has been having both ET and nose bleeding upon suctioning, over the last 2-3 days, and Lovenox has been held intermittently since then. -Monitor for bleeding, when resolves, consider restarting a low molecular weight heparin. -Upon discussion with pharmacy and pulmonary teams, if patient able to be extubated and take oral medicines, will transition to either Eliquis or Xarelto at that time, b/c per pharmacy, even though apparently cannot use NOAC if BMI > 40, recent studies do indicate checking drug specific peak and trough levels for these medicines if having to use DOAC in patients with BMI greater than 40. Given this patient's history of noncompliance, DO AC would likely be more beneficial to this patient versus Coumadin. 3. LE wounds: Continue wound care per wound care team. DM2: cont SSI as needed FEN: cont TFs 4. hypernatremia -Continue D5W cautiously and free water, monitor BMP in the a.m. Dispo: Per pulmonary team, patient may need to have tracheostomy tube placement as he has been unable to be extubated and remains on the vent. Will discuss with family about this. critical care time: 45 minutes Problems: Exam/Review of Systems Vital Signs Vitals Vital Signs Date Time Temp Pulse Resp B/P Pulse Ox O2 Delivery O2 Flow Rate FiO2 10/27/17 09:30 93 20 132/78 90 Mechanical Ventilator 10/27/17 08:00 60 10/27/17 07:30 98.9 Intake and Output 10/26/17 10/26/17 10/27/17 14:59 22:59 06:59 Intake Total 1552.5 ml 1025.0 ml 1677.5 ml Output Total 1400 ml 810 ml 550 ml Balance 152.5 ml 215.0 ml 1127.5 ml Results Result Diagram: 10/27/17 0500 10/27/17 0500 Results 24 hrs Laboratory Tests Test 10/26/17 13:53 10/26/17 21:56 10/27/17 05:00 10/27/17 05:52 Bedside Glucose 113 124 110 White Blood Count 14.3 H Red Blood Count 4.79 Hemoglobin 11.5 L Hematocrit 40.4 L Mean Corpuscular Volume 84.3 Mean Corpuscular Hemoglobin 24.0 L Mean Corpuscular Hemoglobin Concent 28.5 L Red Cell Distribution Width 18.2 H Platelet Count 389 Mean Platelet Volume 11.4 H Neutrophils % 62.4 Lymphocytes % 19.8 Monocytes % 13.4 H Eosinophils % 2.4 Basophils % 0.6 Nucleated Red Blood Cells % 0.0 Neutrophils # 8.9 H Lymphocytes # 2.8 Monocytes # 1.9 H Eosinophils # 0.4 Basophils # 0.1 Nucleated Red Blood Cells # 0.0 Sodium Level 153 H Potassium Level 4.0 Chloride Level 109 Carbon Dioxide Level 34 H Anion Gap 14 Blood Urea Nitrogen 28 H Creatinine 1.10 Glucose Level 102 Calcium Level 9.1 Test 10/27/17 07:00 10/27/17 08:56 10/27/17 09:03 Blood Gas Specimen Source Blood arterial Arterial Blood Date Drawn 10/27/2017 8:25:47 AM Arterial Blood pH (Temp corrected) 7.397 Arterial Blood pCO2 (Temp correct) 55.0 H Arterial Blood pO2 (Temp corrected) 75.1 L Arterial Blood HCO3 33.1 H Arterial Blood Base Excess 6.7 H Arterial Blood Oxygen Saturation 94.4 L Danyel Test ACCEPTAB Arterial Blood Gas Puncture Site Right Radial Arterial Blood Carboxyhemoglobin 0.4 Arterial Blood Methemoglobin 0.1 Blood Gas A-a O2 Differential 292.2 H Oxyhemoglobin Percent 93.9 Total Hemoglobin 13.0 Blood Gas Temperature 37.0 Blood Gas Respiration Rate 18.0 Blood Gas Actual Respiration Rate 20 Blood Gas Modality VENT - AC FiO2 60.0 Blood Gas Tidal Volume 550.0 Blood Gas Low PEEP Setting 5.0 Blood Gas Notified Whom TRES MACIEL Blood Gas Notified Time 10/27/2017 8:39:53 AM Bedside Glucose 110 Vancomycin Level Trough 18.0 Medications Medications Current Medications Ondansetron HCl (Zofran Inj) 4 mg Q6H PRN IV NAUSEA AND/OR VOMITING Last administered on 10/17/17 03:01; Admin Dose 4 MG; Start 10/14/17 at 21:30 Nitroglycerin (Nitroglycerin (Sl Tab) 0.4 Mg) 1 tab Q5M PRN SL CHEST PAIN; Start 10/14/17 at 21:30 Acetaminophen (Tylenol Tab) 650 mg Q6H PRN PO PAIN LEVEL 1-3 OR FEVER Last administered on 10/25/17 11:13; Admin Dose 650 MG; Start 10/14/17 at 21:30 Enoxaparin Sodium (Lovenox) 245 mg Q12 SC Last administered on 10/24/17 08:20 ; Admin Dose 245 MG; Start 10/16/17 at 01:00 Morphine Sulfate (morphine) 2 mg Q4H PRN IV PAIN LEVEL 7-10 Last administered on 10/17/17 01:54; Admin Dose 2 MG; Start 10/16/17 at 00:00 Multi-Ingredient Ointment (Eucerin Cream) 1 applic BID TOP Last administered on 10/27/17 09:23; Admin Dose 1 APPLIC; Start 10/16/17 at 09:00 Triamcinolone Acetonide (Kenalog 0.1% Oint) 1 applic BID TOP Last administered on 10/27/17 09:23; Admin Dose 1 APPLIC; Start 10/16/17 at 14:00 Famotidine 20 mg 20 mg HS GTB Last administered on 10/26/17 20:31; Admin Dose 20 MG; Start 10/17/17 at 21:00 Fentanyl (Sublimaze) 100 ml @ 2.5 mls/hr TITRATE IV Last administered on 10/27 09:18; Admin Dose 7.5 MLS/HR; Start 10/18/17 at 10:00 Lorazepam (Ativan) 2 mg Q4H PRN IV AGITATION Last administered on 10/24/17 07 :24; Admin Dose 2 MG; Start 10/18/17 at 21:00 Diagnostic Test (Pha) (Accu-Chek) 1 ea 02 XX Last administered on 10/23/17 01 :35; Admin Dose 1 EA; Start 10/20/17 at 02:00 Miscellaneous Information 1 ea NOTE XX ; Start 10/19/17 at 18:00 Glucose (Glutose) 15 gm Q15M PRN PO DECREASED GLUCOSE; Start 10/19/17 at 18:00 Glucose (Glutose) 22.5 gm Q15M PRN PO DECREASED GLUCOSE; Start 10/19/17 at 18: 00 Dextrose (D50w Syringe) 25 ml Q15M PRN IV DECREASED GLUCOSE; Start 10/19/17 at 18:00 Dextrose (D50w Syringe) 50 ml Q15M PRN IV DECREASED GLUCOSE; Start 10/19/17 at 18:00 Glucagon (Glucagen) 1 mg Q15M PRN IM DECREASED GLUCOSE; Start 10/19/17 at 18: 00 Glucose 15 gm 15 gm Q15M PRN BUCCAL DECREASED GLUCOSE; Start 10/19/17 at 18:00 Midazolam HCl (Versed) 50 ml @ 1 mls/hr TITRATE IV Last administered on 09:18; Admin Dose 10 MLS/HR; Start 10/21/17 at 09:30 IV Flush (NS 10 ml) 10 ml PRN PRN IV IV PROTOCOL; Start 10/22/17 at 19:00 Acetazolamide (Diamox) 250 mg BID GTB Last administered on 10/27/17 09:23; Admin Dose 250 MG; Start 10/23/17 at 10:30 Insulin Aspart (Novolog Insulin Pen) NOVOLOG *MILD* ALGORI... Q8 SC ; Start at 22:00 Docusate Sodium (Colace Liquid Cup) 100 mg BID GTB Last administered on 09:23; Admin Dose 100 MG; Start 10/24/17 at 21:00 Polyethylene Glycol 17 gm 17 gm DAILY NGT Last administered on 10/27/17 09:23 ; Admin Dose 17 GM; Start 10/24/17 at 21:00 Cefepime HCl 50 ml @ 100 mls/hr Q8 IVPB Last administered on 10/27/17 05:00 ; Admin Dose 100 MLS/HR; Start 10/25/17 at 22:00 Vancomycin HCl 2.25 gm/Sodium Chloride 500 ml @ 125 mls/hr Q12H IVPB Last administered on 10/27/17 10:22; Admin Dose 125 MLS/HR; Start 10/26/17 at 10: 00; Stop 10/27/17 at 14:00 Vancomycin HCl/ Sodium Chloride (Vancocin/NS) 500 ml @ 125 mls/hr Q12H IVPB ; Start 10/27/17 at 22:00 DOLLY ESCOBEDO 26, 2017 12:45
[2017-10-27] MEDS ORDERED: DEXTROSE 5%-0.9% NACL 1,000 ML IV SCH ×2 (13:30→21:00)
[2017-10-27] MEDS: FAMOTIDINE 20 MG TAB GTB SCH (21:10)
[2017-10-27] MEDS: VANCOMYCIN 1.75 GM in NS 500 ML IVPB SCH (21:10)
[2017-10-28] VITALS (37 sets, daily range): BP systolic 115–148; BP diastolic 60–89; PULSE 74–96; RESP 18–30
[2017-10-28] MEDS: MIDAZOLAM (DRIP) 50 mg/50 mL 50 ML IV SCH ×5 (02:32→23:39)
[2017-10-28] MEDS: ACCU-CHEK XX SCH (02:32)
[2017-10-28 05:36] LABS: ABNORMAL IP MESSAGE 1; BASOPHIL # 0.1 10^3/ul (0.0-0.1); BASOPHILS % 0.8 % (0.0-2.0); EOSINOPHILS # 0.4 10^3/ul (0.0-0.5); HEMATOCRIT 39.2 % (42.0-52.0); HEMOGLOBIN 11.6 g/dl (14.0-18.0); LYMPHOCYTES # 2.7 10^3/ul (0.8-2.9); LYMPHOCYTES % 18.6 % (15.0-51.0); MEAN CORPUSCULAR HEMOGLOBIN 24.8 pg (29.0-33.0); MEAN CORPUSCULAR HGB CONC 29.6 g/dl (32.0-37.0); MEAN CORPUSCULAR VOLUME 83.9 fl (82.0-101.0); MEAN PLATELET VOLUME 11.3 fl (7.4-10.4); MONOCYTE # 1.5 10^3/ul (0.3-0.9); MONOCYTES % 10.6 % (0.0-11.0); NEUTROPHIL # 9.4 10^3/ul (1.6-7.5); NEUTROPHILS % 65.7 % (39.0-77.0); PLATELET COUNT 376 10^3/UL (140-415); POSITIVE DIFF @See below; RED BLOOD COUNT 4.67 10^6/ul (4.70-6.10); RED CELL DISTRIBUTION WIDTH 18.2 % (11.5-14.5); WHITE BLOOD COUNT 14.3 10^3/ul (4.8-10.8)
[2017-10-28 05:43] LABS: CALCIUM 8.6 mg/dl (8.4-10.2); CREATININE 0.95 mg/dl (0.61-1.24); POTASSIUM 3.6 mmol/L (3.5-5.1)
[2017-10-28] MEDS: INSULIN ASPART [NOVOLOG] 3 ML PEN SC SCH ×3 (06:00→22:00)
[2017-10-28] MEDS: CEFEPIME 2GM/50 ML (PMX) 50 ML IVPB SCH ×2 (06:30→14:17)
[2017-10-28] MEDS: FUROSEMIDE 40 MG INJ IV SCH (06:31)
[2017-10-28] MEDS: ACETAZOLAMIDE 250 MG TAB GTB SCH (08:32)
[2017-10-28] MEDS: POLYETHYLENE GLYCOL 17 GM PACKET NGT SCH (08:33)
[2017-10-28] MEDS: DOCUSATE SODIUM 10 MG/ML (10ML CUP) GTB SCH ×2 (08:33→21:24)
[2017-10-28] MEDS: ENOXAPARIN 100 MG/ML SYG SC SCH ×2 (08:34→21:27)
[2017-10-28] MEDS: DEXTROSE 5% 1,000 ML IV SCH (08:35)
[2017-10-28] MEDS: EUCERIN 113 GM CR TOP SCH ×2 (08:37→21:39)
[2017-10-28] MEDS: TRIAMCINOLONE ACET 0.1% 15 GM OINT TOP SCH ×2 (08:37→21:00)
--- NOTE | 2017-10-28 09:44 | CONS ---
Date/Time of Note Date/Time of Note DATE: 10/28/17 TIME: 09:43 Consult Date/Type/Reason Admit Date/Time Oct 14, 2017 at 20:55 Type of Consultation: Pulmonary Subjective No significant changes. Continue sedation FiO2 at 60%. Objective Vital Signs Date Time Temp Pulse Resp B/P Pulse Ox O2 Delivery O2 Flow Rate FiO2 10/28/17 08:00 88 10/28/17 08:00 100.6 28 135/75 90 Mechanical Ventilator 10/28/17 08:00 60 Intake and Output 10/27/17 10/27/17 10/28/17 15:00 23:00 07:00 Intake Total 910.0 ml 1467.53 ml 1720.0 ml Output Total 1530 ml 1450 ml 340 ml Balance -620.0 ml 17.53 ml 1380.0 ml Exam GENERAL: Morbidly obese gentleman intubated on mechanical ventilation appears comfortable at rest VITAL SIGNS: per chart NECK: Supple. No JVD or lymphadenopathy. CARDIAC EXAM: S1, S2. No added sounds or murmurs. CHEST: Few rales bilaterally eezes ABDOMEN: Soft, nontender. No guarding or rebound. Diminished bowel sounds EXTREMITIES: No cyanosis, clubbing or edema. NEUROLOGIC: Generalized weakness. Results/Medications Result Diagram: 10/28/17 0458 10/28/17 0458 Results 24 hrs Laboratory Tests Test 10/27/17 14:20 10/27/17 21:09 10/28/17 04:58 Bedside Glucose 101 99 White Blood Count 14.3 H Red Blood Count 4.67 L Hemoglobin 11.6 L Hematocrit 39.2 L Mean Corpuscular Volume 83.9 Mean Corpuscular Hemoglobin 24.8 L Mean Corpuscular Hemoglobin Concent 29.6 L Red Cell Distribution Width 18.2 H Platelet Count 376 Mean Platelet Volume 11.3 H Neutrophils % 65.7 Lymphocytes % 18.6 Monocytes % 10.6 Eosinophils % 3.0 Basophils % 0.8 Nucleated Red Blood Cells % 0.0 Neutrophils # 9.4 H Lymphocytes # 2.7 Monocytes # 1.5 H Eosinophils # 0.4 Basophils # 0.1 Nucleated Red Blood Cells # 0.0 Sodium Level 149 H Potassium Level 3.6 Chloride Level 105 Carbon Dioxide Level 33 H Anion Gap 15 Blood Urea Nitrogen 27 H Creatinine 0.95 Glucose Level 114 Calcium Level 8.6 Medications Current Medications Ondansetron HCl (Zofran Inj) 4 mg Q6H PRN IV NAUSEA AND/OR VOMITING Last administered on 10/17/17 03:01; Admin Dose 4 MG; Start 10/14/17 at 21:30 Nitroglycerin (Nitroglycerin (Sl Tab) 0.4 Mg) 1 tab Q5M PRN SL CHEST PAIN; Start 10/14/17 at 21:30 Acetaminophen (Tylenol Tab) 650 mg Q6H PRN PO PAIN LEVEL 1-3 OR FEVER Last administered on 10/25/17 11:13; Admin Dose 650 MG; Start 10/14/17 at 21:30 Enoxaparin Sodium (Lovenox) 245 mg Q12 SC Last administered on 10/28/17 08:34 ; Admin Dose 245 MG; Start 10/16/17 at 01:00 Morphine Sulfate (morphine) 2 mg Q4H PRN IV PAIN LEVEL 7-10 Last administered on 10/17/17 01:54; Admin Dose 2 MG; Start 10/16/17 at 00:00 Multi-Ingredient Ointment (Eucerin Cream) 1 applic BID TOP Last administered on 10/28/17 08:37; Admin Dose 1 APPLIC; Start 10/16/17 at 09:00 Triamcinolone Acetonide (Kenalog 0.1% Oint) 1 applic BID TOP Last administered on 10/28/17 08:37; Admin Dose 1 APPLIC; Start 10/16/17 at 14:00 Famotidine 20 mg 20 mg HS GTB Last administered on 10/27/17 21:10; Admin Dose 20 MG; Start 10/17/17 at 21:00 Fentanyl (Sublimaze) 100 ml @ 2.5 mls/hr TITRATE IV Last administered on 10/27 23:29; Admin Dose 7.5 MLS/HR; Start 10/18/17 at 10:00 Lorazepam (Ativan) 2 mg Q4H PRN IV AGITATION Last administered on 10/24/17 07 :24; Admin Dose 2 MG; Start 10/18/17 at 21:00 Diagnostic Test (Pha) (Accu-Chek) 1 ea 02 XX Last administered on 10/28/17 02 :32; Admin Dose 1 EA; Start 10/20/17 at 02:00 Miscellaneous Information 1 ea NOTE XX ; Start 10/19/17 at 18:00 Glucose (Glutose) 15 gm Q15M PRN PO DECREASED GLUCOSE; Start 10/19/17 at 18:00 Glucose (Glutose) 22.5 gm Q15M PRN PO DECREASED GLUCOSE; Start 10/19/17 at 18: 00 Dextrose (D50w Syringe) 25 ml Q15M PRN IV DECREASED GLUCOSE; Start 10/19/17 at 18:00 Dextrose (D50w Syringe) 50 ml Q15M PRN IV DECREASED GLUCOSE; Start 10/19/17 at 18:00 Glucagon (Glucagen) 1 mg Q15M PRN IM DECREASED GLUCOSE; Start 10/19/17 at 18: 00 Glucose 15 gm 15 gm Q15M PRN BUCCAL DECREASED GLUCOSE; Start 10/19/17 at 18:00 Midazolam HCl (Versed) 50 ml @ 1 mls/hr TITRATE IV Last administered on 08:35; Admin Dose 10 MLS/HR; Start 10/21/17 at 09:30 IV Flush (NS 10 ml) 10 ml PRN PRN IV IV PROTOCOL; Start 10/22/17 at 19:00 Acetazolamide (Diamox) 250 mg BID GTB Last administered on 10/28/17 08:32; Admin Dose 250 MG; Start 10/23/17 at 10:30 Insulin Aspart (Novolog Insulin Pen) NOVOLOG *MILD* ALGORI... Q8 SC ; Start at 22:00 Docusate Sodium (Colace Liquid Cup) 100 mg BID GTB Last administered on 08:33; Admin Dose 100 MG; Start 10/24/17 at 21:00 Polyethylene Glycol 17 gm 17 gm DAILY NGT Last administered on 10/28/17 08:33 ; Admin Dose 17 GM; Start 10/24/17 at 21:00 Cefepime HCl 50 ml @ 100 mls/hr Q8 IVPB Last administered on 10/28/17 06:30 ; Admin Dose 100 MLS/HR; Start 10/25/17 at 22:00 Vancomycin HCl/ Sodium Chloride (Vancocin/NS) 500 ml @ 125 mls/hr Q12H IVPB Last administered on 10/27/17 21:10; Admin Dose 125 MLS/HR; Start 10/27/17 at 22:00 Assessment/Plan Chief Complaint/Hosp Course IMPRESSION 1. Acute on chronic hypercapnic respiratory failure.Pulmonary edema and possible pneumonia. Improved aeration on chest x-ray today. 2. Morbid obesity. 3. Likely diastolic dysfunction.pulmonary edema. 4. Possible thromboembolic disease. Unable to exclude thromboembolic disease given morbid obesity. Elevated D-dimers. PLAN: 1. Continue anticoagulation for deep vein thrombosis. Continue anticoagulation 2. Mechanical ventilation. Continue Versed and fentanyl. Not ready for weaning 3. Bronchodilators. 4. Gentle diuresis if tolerated 5. Deep venous thrombosis and gastrointestinal prophylaxis. 6. Diamox for chronic hypercapnia. 7. Increase free water. Discussed with the next of kin need for tracheostomy and PEG tube. Problems: BRIGETTE CODY MD, [facility] Oct 28, 2017 09:44
[2017-10-28] MEDS: VANCOMYCIN 1.75 GM in NS 500 ML IVPB SCH ×2 (10:05→21:24)
[2017-10-28] MEDS: FENTAnyl (DRIP) 1000 mcg/100mL 100 ML IV SCH (13:21)
--- NOTE | 2017-10-28 15:07 | PN ---
Date/Time of Note Date/Time of Note DATE: 10/28/17 TIME: 14:53 Assessment/Plan VTE Prophylaxis VTE Prophylaxis Intervention: SCD's Lines/Catheters IV Catheter Type (from Nrs): PICC Line Central line still needed: No Urinary Cath still in place: Yes Reason Cath still needed: other (indicate) (critically ill) Assessment/Plan Assessment/Plan 47 yo M with super morbid obesity, DM presented to SOB intubated for airway protection in setting of CO2 narcosis and pulmonary edema. #fevers, leukocytosis: etio unclear. Lung imaging without alysa infiltrate, though resp culture with MSSA, urine with MSSA and enterococcus narrow abx to Ancef #prolonged combined hypoxic and hypercapnic respiratory failure -per pulm, pt remains intubated as not able to achieve weaning parameters -stop diamox as its use also does not appear to have helped with weanability #possible PE? -resume LMWH. consider warfarin after PEG/trach are complete #hypernatremia; pt with calculated ~9L FW deficit stop lasix as this does not appear to be having a meaningful impact on pt's pulmonary status. He also does not have CHF on echo, and BNP normal add FW to TFs, will start with 2L/day, may decrease depending on O2 needs critical care time: 45 minutes Exam/Review of Systems Vital Signs Vitals Vital Signs Date Time Temp Pulse Resp B/P Pulse Ox O2 Delivery O2 Flow Rate FiO2 10/28/17 14:00 99.2 74 18 121/69 96 Mechanical Ventilator 10/28/17 12:00 60 Intake and Output 10/27/17 10/27/17 10/28/17 15:00 23:00 07:00 Intake Total 910.0 ml 1467.53 ml 1720.0 ml Output Total 1530 ml 1450 ml 340 ml Balance -620.0 ml 17.53 ml 1380.0 ml Results Result Diagram: 10/28/17 0458 10/28/17 0458 Results 24 hrs Laboratory Tests Test 10/27/17 21:09 10/28/17 04:58 10/28/17 14:13 Bedside Glucose 99 87 White Blood Count 14.3 H Red Blood Count 4.67 L Hemoglobin 11.6 L Hematocrit 39.2 L Mean Corpuscular Volume 83.9 Mean Corpuscular Hemoglobin 24.8 L Mean Corpuscular Hemoglobin Concent 29.6 L Red Cell Distribution Width 18.2 H Platelet Count 376 Mean Platelet Volume 11.3 H Neutrophils % 65.7 Lymphocytes % 18.6 Monocytes % 10.6 Eosinophils % 3.0 Basophils % 0.8 Nucleated Red Blood Cells % 0.0 Neutrophils # 9.4 H Lymphocytes # 2.7 Monocytes # 1.5 H Eosinophils # 0.4 Basophils # 0.1 Nucleated Red Blood Cells # 0.0 Sodium Level 149 H Potassium Level 3.6 Chloride Level 105 Carbon Dioxide Level 33 H Anion Gap 15 Blood Urea Nitrogen 27 H Creatinine 0.95 Glucose Level 114 Calcium Level 8.6 Medications Medications Current Medications Ondansetron HCl (Zofran Inj) 4 mg Q6H PRN IV NAUSEA AND/OR VOMITING Last administered on 10/17/17 03:01; Admin Dose 4 MG; Start 10/14/17 at 21:30 Nitroglycerin (Nitroglycerin (Sl Tab) 0.4 Mg) 1 tab Q5M PRN SL CHEST PAIN; Start 10/14/17 at 21:30 Acetaminophen (Tylenol Tab) 650 mg Q6H PRN PO PAIN LEVEL 1-3 OR FEVER Last administered on 10/25/17 11:13; Admin Dose 650 MG; Start 10/14/17 at 21:30 Enoxaparin Sodium (Lovenox) 245 mg Q12 SC Last administered on 10/28/17 08:34 ; Admin Dose 245 MG; Start 10/16/17 at 01:00 Morphine Sulfate (morphine) 2 mg Q4H PRN IV PAIN LEVEL 7-10 Last administered on 10/17/17 01:54; Admin Dose 2 MG; Start 10/16/17 at 00:00 Multi-Ingredient Ointment (Eucerin Cream) 1 applic BID TOP Last administered on 10/28/17 08:37; Admin Dose 1 APPLIC; Start 10/16/17 at 09:00 Triamcinolone Acetonide (Kenalog 0.1% Oint) 1 applic BID TOP Last administered on 10/28/17 08:37; Admin Dose 1 APPLIC; Start 10/16/17 at 14:00 Famotidine 20 mg 20 mg HS GTB Last administered on 10/27/17 21:10; Admin Dose 20 MG; Start 10/17/17 at 21:00 Fentanyl (Sublimaze) 100 ml @ 2.5 mls/hr TITRATE IV Last administered on 10/28 13:21; Admin Dose 7.5 MLS/HR; Start 10/18/17 at 10:00 Lorazepam (Ativan) 2 mg Q4H PRN IV AGITATION Last administered on 10/24/17 07 :24; Admin Dose 2 MG; Start 10/18/17 at 21:00 Diagnostic Test (Pha) (Accu-Chek) 1 ea 02 XX Last administered on 10/28/17 02 :32; Admin Dose 1 EA; Start 10/20/17 at 02:00 Miscellaneous Information 1 ea NOTE XX ; Start 10/19/17 at 18:00 Glucose (Glutose) 15 gm Q15M PRN PO DECREASED GLUCOSE; Start 10/19/17 at 18:00 Glucose (Glutose) 22.5 gm Q15M PRN PO DECREASED GLUCOSE; Start 10/19/17 at 18: 00 Dextrose (D50w Syringe) 25 ml Q15M PRN IV DECREASED GLUCOSE; Start 10/19/17 at 18:00 Dextrose (D50w Syringe) 50 ml Q15M PRN IV DECREASED GLUCOSE; Start 10/19/17 at 18:00 Glucagon (Glucagen) 1 mg Q15M PRN IM DECREASED GLUCOSE; Start 10/19/17 at 18: 00 Glucose 15 gm 15 gm Q15M PRN BUCCAL DECREASED GLUCOSE; Start 10/19/17 at 18:00 Midazolam HCl (Versed) 50 ml @ 1 mls/hr TITRATE IV Last administered on 14:28; Admin Dose 10 MLS/HR; Start 10/21/17 at 09:30 IV Flush (NS 10 ml) 10 ml PRN PRN IV IV PROTOCOL; Start 10/22/17 at 19:00 Acetazolamide (Diamox) 250 mg BID GTB Last administered on 10/28/17 08:32; Admin Dose 250 MG; Start 10/23/17 at 10:30 Insulin Aspart (Novolog Insulin Pen) NOVOLOG *MILD* ALGORI... Q8 SC ; Start at 22:00 Docusate Sodium (Colace Liquid Cup) 100 mg BID GTB Last administered on 08:33; Admin Dose 100 MG; Start 10/24/17 at 21:00 Polyethylene Glycol 17 gm 17 gm DAILY NGT Last administered on 10/28/17 08:33 ; Admin Dose 17 GM; Start 10/24/17 at 21:00 Cefepime HCl 50 ml @ 100 mls/hr Q8 IVPB Last administered on 10/28/17 14:17 ; Admin Dose 100 MLS/HR; Start 10/25/17 at 22:00 Vancomycin HCl/ Sodium Chloride (Vancocin/NS) 500 ml @ 125 mls/hr Q12H IVPB Last administered on 10/28/17 10:05; Admin Dose 125 MLS/HR; Start 10/27/17 at 22:00 LEXII LADD MD Oct 28, 2017 15:03
[2017-10-28] MEDS ORDERED: VANCOMYCIN IV PER PHARMACY XX SCH ×2 (15:30)
[2017-10-28] MEDS: FAMOTIDINE 20 MG TAB GTB SCH (21:24)
[2017-10-28] MEDS ORDERED: CEFAZOLIN 2 GM/50 ML (PMX) 50 ML IVPB SCH (22:00)
[2017-10-29] VITALS (36 sets, daily range): BP systolic 107–148; BP diastolic 55–90; PULSE 77–108; RESP 18–31
[2017-10-29] MEDS: ACCU-CHEK XX SCH (02:00)
[2017-10-29] MEDS: FENTAnyl (DRIP) 1000 mcg/100mL 100 ML IV SCH ×2 (02:31→18:52)
[2017-10-29] MEDS: MIDAZOLAM (DRIP) 50 mg/50 mL 50 ML IV SCH ×3 (05:11→22:07)
[2017-10-29 05:23] LABS: BASOPHIL # 0.1 10^3/ul (0.0-0.1); BASOPHILS % 0.8 % (0.0-2.0); EOSINOPHILS # 0.5 10^3/ul (0.0-0.5); EOSINOPHILS % 3.8 % (0.0-7.0); HEMATOCRIT 36.9 % (42.0-52.0); HEMOGLOBIN 11.1 g/dl (14.0-18.0); LYMPHOCYTES # 2.8 10^3/ul (0.8-2.9); LYMPHOCYTES % 21.5 % (15.0-51.0); MEAN CORPUSCULAR HEMOGLOBIN 25.3 pg (29.0-33.0); MEAN CORPUSCULAR HGB CONC 30.1 g/dl (32.0-37.0); MEAN CORPUSCULAR VOLUME 84.1 fl (82.0-101.0); MEAN PLATELET VOLUME 11.6 fl (7.4-10.4); MONOCYTE # 1.2 10^3/ul (0.3-0.9); MONOCYTES % 9.4 % (0.0-11.0); NEUTROPHIL # 8.1 10^3/ul (1.6-7.5); PLATELET COUNT 398 10^3/UL (140-415); RED BLOOD COUNT 4.39 10^6/ul (4.70-6.10); RED CELL DISTRIBUTION WIDTH 18.4 % (11.5-14.5); WHITE BLOOD COUNT 12.9 10^3/ul (4.8-10.8)
[2017-10-29 05:51] LABS: CALCIUM 9.2 mg/dl (8.4-10.2); CREATININE 0.98 mg/dl (0.61-1.24); POTASSIUM 3.5 mmol/L (3.5-5.1)
[2017-10-29] MEDS: INSULIN ASPART [NOVOLOG] 3 ML PEN SC SCH ×3 (06:00→21:21)
--- NOTE | 2017-10-29 09:33 | CONS ---
Date/Time of Note Date/Time of Note DATE: 10/29/17 TIME: 09:32 Consult Date/Type/Reason Admit Date/Time Oct 14, 2017 at 20:55 Type of Consultation: Pulmonary Subjective Patient remains comfortable. No new events. Continues FiO2 of 60%. Objective Vital Signs Date Time Temp Pulse Resp B/P Pulse Ox O2 Delivery O2 Flow Rate FiO2 10/29/17 07:56 60 10/29/17 07:00 87 22 124/64 93 Mechanical Ventilator 10/29/17 04:00 98.5 Intake and Output 10/28/17 10/28/17 10/29/17 15:00 23:00 07:00 Intake Total 1147.5 ml 597.5 ml 880 ml Output Total 325 ml 580 ml 350 ml Balance 822.5 ml 17.5 ml 530 ml Exam GENERAL: Morbidly obese gentleman intubated on mechanical ventilation appears comfortable at rest VITAL SIGNS: per chart NECK: Supple. No JVD or lymphadenopathy. CARDIAC EXAM: S1, S2. No added sounds or murmurs. CHEST: Diminished air entry both lung bases. ABDOMEN: Soft, nontender. No guarding or rebound. Diminished bowel sounds EXTREMITIES: No cyanosis, clubbing or edema. NEUROLOGIC: Generalized weakness. Results/Medications Result Diagram: 10/29/17 0445 10/29/17 0445 Results 24 hrs Laboratory Tests Test 10/28/17 14:13 10/28/17 21:35 10/29/17 04:45 10/29/17 06:30 Bedside Glucose 87 116 95 White Blood Count 12.9 H Red Blood Count 4.39 L Hemoglobin 11.1 L Hematocrit 36.9 L Mean Corpuscular Volume 84.1 Mean Corpuscular Hemoglobin 25.3 L Mean Corpuscular Hemoglobin Concent 30.1 L Red Cell Distribution Width 18.4 H Platelet Count 398 Mean Platelet Volume 11.6 H Neutrophils % 63.0 Lymphocytes % 21.5 Monocytes % 9.4 Eosinophils % 3.8 Basophils % 0.8 Nucleated Red Blood Cells % 0.0 Neutrophils # 8.1 H Lymphocytes # 2.8 Monocytes # 1.2 H Eosinophils # 0.5 Basophils # 0.1 Nucleated Red Blood Cells # 0.0 Sodium Level 149 H Potassium Level 3.5 Chloride Level 106 Carbon Dioxide Level 36 H Anion Gap 11 Blood Urea Nitrogen 24 H Creatinine 0.98 Glucose Level 109 Calcium Level 9.2 Medications Current Medications Ondansetron HCl (Zofran Inj) 4 mg Q6H PRN IV NAUSEA AND/OR VOMITING Last administered on 10/17/17 03:01; Admin Dose 4 MG; Start 10/14/17 at 21:30 Nitroglycerin (Nitroglycerin (Sl Tab) 0.4 Mg) 1 tab Q5M PRN SL CHEST PAIN; Start 10/14/17 at 21:30 Acetaminophen (Tylenol Tab) 650 mg Q6H PRN PO PAIN LEVEL 1-3 OR FEVER Last administered on 10/25/17 11:13; Admin Dose 650 MG; Start 10/14/17 at 21:30 Enoxaparin Sodium (Lovenox) 245 mg Q12 SC Last administered on 10/28/17 21:27 ; Admin Dose 245 MG; Start 10/16/17 at 01:00 Morphine Sulfate (morphine) 2 mg Q4H PRN IV PAIN LEVEL 7-10 Last administered on 10/17/17 01:54; Admin Dose 2 MG; Start 10/16/17 at 00:00 Multi-Ingredient Ointment (Eucerin Cream) 1 applic BID TOP Last administered on 10/28/17 21:39; Admin Dose 1 APPLIC; Start 10/16/17 at 09:00 Triamcinolone Acetonide (Kenalog 0.1% Oint) 1 applic BID TOP Last administered on 10/28/17 08:37; Admin Dose 1 APPLIC; Start 10/16/17 at 14:00 Famotidine 20 mg 20 mg HS GTB Last administered on 10/28/17 21:24; Admin Dose 20 MG; Start 10/17/17 at 21:00 Fentanyl (Sublimaze) 100 ml @ 2.5 mls/hr TITRATE IV Last administered on 10/29 02:31; Admin Dose 7.5 MLS/HR; Start 10/18/17 at 10:00 Lorazepam (Ativan) 2 mg Q4H PRN IV AGITATION Last administered on 10/24/17 07 :24; Admin Dose 2 MG; Start 10/18/17 at 21:00 Diagnostic Test (Pha) (Accu-Chek) 1 ea 02 XX Last administered on 10/28/17 02 :32; Admin Dose 1 EA; Start 10/20/17 at 02:00 Miscellaneous Information 1 ea NOTE XX ; Start 10/19/17 at 18:00 Glucose (Glutose) 15 gm Q15M PRN PO DECREASED GLUCOSE; Start 10/19/17 at 18:00 Glucose (Glutose) 22.5 gm Q15M PRN PO DECREASED GLUCOSE; Start 10/19/17 at 18: 00 Dextrose (D50w Syringe) 25 ml Q15M PRN IV DECREASED GLUCOSE; Start 10/19/17 at 18:00 Dextrose (D50w Syringe) 50 ml Q15M PRN IV DECREASED GLUCOSE; Start 10/19/17 at 18:00 Glucagon (Glucagen) 1 mg Q15M PRN IM DECREASED GLUCOSE; Start 10/19/17 at 18: 00 Glucose 15 gm 15 gm Q15M PRN BUCCAL DECREASED GLUCOSE; Start 10/19/17 at 18:00 Midazolam HCl (Versed) 50 ml @ 1 mls/hr TITRATE IV Last administered on 05:11; Admin Dose 10 MLS/HR; Start 10/21/17 at 09:30 IV Flush (NS 10 ml) 10 ml PRN PRN IV IV PROTOCOL; Start 10/22/17 at 19:00 Insulin Aspart (Novolog Insulin Pen) NOVOLOG *MILD* ALGORI... Q8 SC ; Start at 22:00 Docusate Sodium (Colace Liquid Cup) 100 mg BID GTB Last administered on 21:24; Admin Dose 100 MG; Start 10/24/17 at 21:00 Polyethylene Glycol 17 gm 17 gm DAILY NGT Last administered on 10/28/17 08:33 ; Admin Dose 17 GM; Start 10/24/17 at 21:00 Vancomycin HCl/ Sodium Chloride (Vancocin/NS) 500 ml @ 125 mls/hr Q12H IVPB Last administered on 10/28/17 21:24; Admin Dose 125 MLS/HR; Start 10/27/17 at 22:00 Assessment/Plan Chief Complaint/Hosp Course IMPRESSION 1. Acute on chronic hypercapnic respiratory failure.Pulmonary edema and possible pneumonia. Continues FiO2 of 60% possible intraparenchymal shunting. 2. Morbid obesity. 3. Likely diastolic dysfunction.pulmonary edema. 4. Possible thromboembolic disease. Unable to exclude thromboembolic disease given morbid obesity. Elevated D-dimers. PLAN: 1. Continue anticoagulation for deep vein thrombosis. Continue anticoagulation 2. Mechanical ventilation. Continue Versed and fentanyl. CPAP trial again today. 3. Bronchodilators. 4. Gentle diuresis if tolerated 5. Deep venous thrombosis and gastrointestinal prophylaxis. 6. Diamox for chronic hypercapnia. 7. Increase free water. Discussed with the next of kin need for tracheostomy and PEG tube. Patient's family agreed to tracheostomy and PEG tube. Problems: BRIGETTE CODY MD, [facility] Oct 29, 2017 09:33
[2017-10-29] MEDS: POLYETHYLENE GLYCOL 17 GM PACKET NGT SCH (09:54)
[2017-10-29] MEDS: ENOXAPARIN 100 MG/ML SYG SC SCH ×3 (09:54→21:00)
[2017-10-29] MEDS: DOCUSATE SODIUM 10 MG/ML (10ML CUP) GTB SCH ×2 (09:54→21:12)
[2017-10-29] MEDS: EUCERIN 113 GM CR TOP SCH ×2 (09:55→21:27)
[2017-10-29] MEDS: TRIAMCINOLONE ACET 0.1% 15 GM OINT TOP SCH ×2 (09:56→21:12)
[2017-10-29] MEDS: VANCOMYCIN 1.75 GM in NS 500 ML IVPB SCH ×2 (11:35→21:12)
--- NOTE | 2017-10-29 15:07 | PN ---
Date/Time of Note Date/Time of Note DATE: 10/29/17 TIME: 15:01 Assessment/Plan VTE Prophylaxis VTE Prophylaxis Intervention: SCD's Lines/Catheters IV Catheter Type (from Nrsg): PICC Line Central line still needed: No Urinary Cath still in place: Yes Reason Cath still needed: other (indicate) (critically ill) Assessment/Plan Assessment/Plan 47 yo M with super morbid obesity, DM presented to SOB intubated for airway protection in setting of CO2 narcosis and pulmonary edema. #fevers, leukocytosis: etio unclear. Lung imaging without alysa infiltrate, though resp culture with MSSA, urine with MSSA and enterococcus narrow abx to Ancef, anticipate 7 days of therapy for ?VAP (would also cover for CAUTI v colonization) #prolonged combined hypoxic and hypercapnic respiratory failure -per pulm, pt remains intubated as not able to achieve weaning parameters #possible PE? -cont therapeutic LMWH. consider warfarin after PEG/trach are complete #hypernatremia; pt with calculated ~9L FW deficit stop lasix as this does not appear to be having a meaningful impact on pt's pulmonary status. He also does not have CHF on echo, and BNP normal talked to RD about TF formulation, she stated she would titrate the TFs critical care time: 45 minutes Subjective 24 Hr Interval Summary Free Text/Dictation remains intubated and sedated Exam/Review of Systems Vital Signs Vitals Vital Signs Date Time Temp Pulse Resp B/P Pulse Ox O2 Delivery O2 Flow Rate FiO2 10/29/17 12:00 99 10/29/17 11:30 27 94 60 10/29/17 07:00 124/64 Mechanical Ventilator 10/29/17 04:00 98.5 Intake and Output 10/28/17 10/28/17 10/29/17 15:00 23:00 07:00 Intake Total 1147.5 ml 597.5 ml 880 ml Output Total 325 ml 580 ml 350 ml Balance 822.5 ml 17.5 ml 530 ml Exam nad no mrg mod air movement abd soft chronic LE venous stasis changes hypernatremia unchanged Results Result Diagram: 10/29/17 0445 10/29/175 Results 24 hrs Laboratory Tests Test 10/28/17 21:35 10/29/17 04:45 10/29/17 06:30 10/29/17 09:34 Bedside Glucose 116 95 White Blood Count 12.9 H Red Blood Count 4.39 L Hemoglobin 11.1 L Hematocrit 36.9 L Mean Corpuscular Volume 84.1 Mean Corpuscular Hemoglobin 25.3 L Mean Corpuscular Hemoglobin Concent 30.1 L Red Cell Distribution Width 18.4 H Platelet Count 398 Mean Platelet Volume 11.6 H Neutrophils % 63.0 Lymphocytes % 21.5 Monocytes % 9.4 Eosinophils % 3.8 Basophils % 0.8 Nucleated Red Blood Cells % 0.0 Neutrophils # 8.1 H Lymphocytes # 2.8 Monocytes # 1.2 H Eosinophils # 0.5 Basophils # 0.1 Nucleated Red Blood Cells # 0.0 Sodium Level 149 H Potassium Level 3.5 Chloride Level 106 Carbon Dioxide Level 36 H Anion Gap 11 Blood Urea Nitrogen 24 H Creatinine 0.98 Glucose Level 109 Calcium Level 9.2 Vancomycin Level Trough 12.1 Medications Medications Current Medications Ondansetron HCl (Zofran Inj) 4 mg Q6H PRN IV NAUSEA AND/OR VOMITING Last administered on 10/17/17 03:01; Admin Dose 4 MG; Start 10/14/17 at 21:30 Nitroglycerin (Nitroglycerin (Sl Tab) 0.4 Mg) 1 tab Q5M PRN SL CHEST PAIN; Start 10/14/17 at 21:30 Acetaminophen (Tylenol Tab) 650 mg Q6H PRN PO PAIN LEVEL 1-3 OR FEVER Last administered on 10/25/17 11:13; Admin Dose 650 MG; Start 10/14/17 at 21:30 Enoxaparin Sodium (Lovenox) 245 mg Q12 SC Last administered on 10/28/17 21:27 ; Admin Dose 245 MG; Start 10/16/17 at 01:00 Morphine Sulfate (morphine) 2 mg Q4H PRN IV PAIN LEVEL 7-10 Last administered on 10/17/17 01:54; Admin Dose 2 MG; Start 10/16/17 at 00:00 Multi-Ingredient Ointment (Eucerin Cream) 1 applic BID TOP Last administered on 10/29/17 09:55; Admin Dose 1 APPLIC; Start 10/16/17 at 09:00 Triamcinolone Acetonide (Kenalog 0.1% Oint) 1 applic BID TOP Last administered on 10/29/17 09:56; Admin Dose 1 APPLIC; Start 10/16/17 at 14:00 Famotidine 20 mg 20 mg HS GTB Last administered on 10/28/17 21:24; Admin Dose 20 MG; Start 10/17/17 at 21:00 Fentanyl (Sublimaze) 100 ml @ 2.5 mls/hr TITRATE IV Last administered on 10/29 02:31; Admin Dose 7.5 MLS/HR; Start 10/18/17 at 10:00 Lorazepam (Ativan) 2 mg Q4H PRN IV AGITATION Last administered on 10/24/17 07 :24; Admin Dose 2 MG; Start 10/18/17 at 21:00 Diagnostic Test (Pha) (Accu-Chek) 1 ea 02 XX Last administered on 10/28/17 02 :32; Admin Dose 1 EA; Start 10/20/17 at 02:00 Miscellaneous Information 1 ea NOTE XX ; Start 10/19/17 at 18:00 Glucose (Glutose) 15 gm Q15M PRN PO DECREASED GLUCOSE; Start 10/19/17 at 18:00 Glucose (Glutose) 22.5 gm Q15M PRN PO DECREASED GLUCOSE; Start 10/19/17 at 18: 00 Dextrose (D50w Syringe) 25 ml Q15M PRN IV DECREASED GLUCOSE; Start 10/19/17 at 18:00 Dextrose (D50w Syringe) 50 ml Q15M PRN IV DECREASED GLUCOSE; Start 10/19/17 at 18:00 Glucagon (Glucagen) 1 mg Q15M PRN IM DECREASED GLUCOSE; Start 10/19/17 at 18: 00 Glucose 15 gm 15 gm Q15M PRN BUCCAL DECREASED GLUCOSE; Start 10/19/17 at 18:00 Midazolam HCl (Versed) 50 ml @ 1 mls/hr TITRATE IV Last administered on 05:11; Admin Dose 10 MLS/HR; Start 10/21/17 at 09:30 IV Flush (NS 10 ml) 10 ml PRN PRN IV IV PROTOCOL; Start 10/22/17 at 19:00 Insulin Aspart (Novolog Insulin Pen) NOVOLOG *MILD* ALGORI... Q8 SC ; Start at 22:00 Docusate Sodium (Colace Liquid Cup) 100 mg BID GTB Last administered on 09:54; Admin Dose 100 MG; Start 10/24/17 at 21:00 Polyethylene Glycol 17 gm 17 gm DAILY NGT Last administered on 10/29/17 09:54 ; Admin Dose 17 GM; Start 10/24/17 at 21:00 Vancomycin HCl/ Sodium Chloride (Vancocin/NS) 500 ml @ 125 mls/hr Q12H IVPB Last administered on 10/29/17 11:35; Admin Dose 125 MLS/HR; Start 10/27/17 at 22:00 LEXII LADD MD Oct 29, 2017 15:07
--- NOTE | 2017-10-29 20:42 | CONS ---
DATE OF ADMISSION: 10/14/2017 DATE OF CONSULTATION: REASON FOR CONSULTATION: Evaluation for tracheostomy. HISTORY OF PRESENT ILLNESS: This is a 47-year-old male admitted because of respiratory failure, int ubated, and unable to come off the ventilator secondary to multiple other medical problems including morbid obesity, pneumonia. The patient does have a history of sleep apnea. PAST MEDICAL HISTORY: Obesity, respiratory failure, sleep apnea, diastolic dysfunction, pulmonary e eitan, thromboembolic disease. PAST SURGICAL HISTORY: None. ALLERGIES: NONE. SOCIAL HISTORY: No smoking, drinking or drug use. MEDICATIONS: List reviewed. PHYSICAL EXAMINATION: VITAL SIGNS: Blood pressure is 143/78, pulse is 101, respirations 24, saturation 98%. Temperature is 99.0. CARDIOVASCULAR: The patient is currently on 50% FIO2, intubated, unresponsive. HEENT: Normocephalic, atraumatic. PERRLA. NECK: Supple. No JVD, no carotid bruits. CARDIOVASCULAR: Normal S1, S2. No murmurs, gallops or rubs. LUNGS: Clear. ABDOMEN: Soft. EXTREMITIES: Warm. LABORATORY VALUES: Hemoglobin 11, white count 12.9, platelet count 298. Normal coagulation factors . IMPRESSION: Respiratory failure. RECOMMENDATIONS: We will proceed with placement of a tracheostomy. We will discuss with the referr ing physicians. Dictated By: DRISS JIMENEZ MD FM/NTS Conf#: [id number] DID#: [id number] CC: LORENA JONES MD; DRISS JIMENEZ MD;*EndCC*
[2017-10-29] MEDS: FAMOTIDINE 20 MG TAB GTB SCH (21:12)
[2017-10-30] VITALS (34 sets, daily range): BP systolic 117–147; BP diastolic 64–113; PULSE 78–108; RESP 14–29
[2017-10-30] MEDS: ACCU-CHEK XX SCH (02:00)
[2017-10-30] MEDS: FENTAnyl (DRIP) 1000 mcg/100mL 100 ML IV SCH ×3 (03:09→21:51)
[2017-10-30] MEDS: MIDAZOLAM (DRIP) 50 mg/50 mL 50 ML IV SCH ×4 (03:09→18:49)
[2017-10-30] MEDS: INSULIN ASPART [NOVOLOG] 3 ML PEN SC SCH ×3 (06:00→21:51)
[2017-10-30 06:30] LABS: BASOPHIL # 0.1 10^3/ul (0.0-0.1); EOSINOPHILS # 0.4 10^3/ul (0.0-0.5); EOSINOPHILS % 3.7 % (0.0-7.0); HEMATOCRIT 38.3 % (42.0-52.0); HEMOGLOBIN 11.2 g/dl (14.0-18.0); LYMPHOCYTES # 1.8 10^3/ul (0.8-2.9); LYMPHOCYTES % 17.1 % (15.0-51.0); MEAN CORPUSCULAR HEMOGLOBIN 24.7 pg (29.0-33.0); MEAN CORPUSCULAR HGB CONC 29.2 g/dl (32.0-37.0); MEAN CORPUSCULAR VOLUME 84.4 fl (82.0-101.0); MEAN PLATELET VOLUME 11.2 fl (7.4-10.4); MONOCYTE # 1.1 10^3/ul (0.3-0.9); MONOCYTES % 10.7 % (0.0-11.0); NEUTROPHIL # 6.9 10^3/ul (1.6-7.5); NEUTROPHILS % 66.3 % (39.0-77.0); PLATELET COUNT 404 10^3/UL (140-415); RED BLOOD COUNT 4.54 10^6/ul (4.70-6.10); RED CELL DISTRIBUTION WIDTH 18.1 % (11.5-14.5); WHITE BLOOD COUNT 10.3 10^3/ul (4.8-10.8)
[2017-10-30 07:05] LABS: CALCIUM 9.5 mg/dl (8.4-10.2); CREATININE 0.83 mg/dl (0.61-1.24); POTASSIUM 3.6 mmol/L (3.5-5.1)
--- NOTE | 2017-10-30 07:57 | RADRPT ---
PROCEDURE: XR Chest. CLINICAL INDICATION: pain TECHNIQUE: Single portable view of the chest was obtained COMPARISON: CHEST 10/27/2017 FINDINGS: There is mild cardiomegaly with worsening pulmonary vascular congestion. There are bilateral alveola r infiltrates throughout the lungs.. The heart, lungs and mediastinum are otherwise unchanged. There is an endotracheal tube and nasogastric tube in place.. RPTAT: AA IMPRESSION: Mild cardiomegaly with worsening pulmonary vascular congestion. No other significant change. .Deuce Varela MD, MD Date Time Electronically viewed and signed by .Deuce Varela MD, MD on 10/30/2017 07:56 .S/
[2017-10-30] MEDS: EUCERIN 113 GM CR TOP SCH ×2 (09:08→21:38)
[2017-10-30] MEDS: TRIAMCINOLONE ACET 0.1% 15 GM OINT TOP SCH ×2 (09:08→21:38)
[2017-10-30] MEDS: POLYETHYLENE GLYCOL 17 GM PACKET NGT SCH (09:54)
[2017-10-30] MEDS: DOCUSATE SODIUM 10 MG/ML (10ML CUP) GTB SCH ×2 (09:54→21:38)
[2017-10-30] MEDS: ENOXAPARIN 100 MG/ML SYG SC SCH ×2 (09:55→21:52)
[2017-10-30] MEDS: VANCOMYCIN 1.75 GM in NS 500 ML IVPB SCH ×2 (10:58→21:39)
--- NOTE | 2017-10-30 12:21 | CONS ---
Date/Time of Note Date/Time of Note DATE: 10/30/17 TIME: 12:20 Consult Date/Type/Reason Admit Date/Time Oct 14, 2017 at 20:55 Type of Consultation: Pulmonary Subjective Failed to CPAP trials yesterday. Follows commands off sedation. Objective Vital Signs Date Time Temp Pulse Resp B/P Pulse Ox O2 Delivery O2 Flow Rate FiO2 10/30/17 11:00 78 18 121/69 93 10/30/17 09:39 50 10/30/17 09:00 Mechanical Ventilator 10/30/17 08:00 99.5 Intake and Output 10/29/17 10/29/17 10/30/17 15:00 23:00 07:00 Intake Total 773 ml 740 ml 1700 ml Output Total 530 ml 530 ml 420 ml Balance 243 ml 210 ml 1280 ml Exam GENERAL: Morbidly obese gentleman intubated on mechanical ventilation appears comfortable at rest VITAL SIGNS: per chart NECK: Supple. No JVD or lymphadenopathy. CARDIAC EXAM: S1, S2. No added sounds or murmurs. CHEST: Diminished air entry both lung bases. ABDOMEN: Soft, nontender. No guarding or rebound. Diminished bowel sounds EXTREMITIES: No cyanosis, clubbing or edema. NEUROLOGIC: Generalized weakness. Results/Medications Result Diagram: 10/30/1761810/30/17618 Results 24 hrs Laboratory Tests Test 10/29/17 21:21 10/30/17 06:00 10/30/17 06:19 Bedside Glucose 96 97 White Blood Count 10.3 # Red Blood Count 4.54 L Hemoglobin 11.2 L Hematocrit 38.3 L Mean Corpuscular Volume 84.4 Mean Corpuscular Hemoglobin 24.7 L Mean Corpuscular Hemoglobin Concent 29.2 L Red Cell Distribution Width 18.1 H Platelet Count 404 Mean Platelet Volume 11.2 H Neutrophils % 66.3 Lymphocytes % 17.1 Monocytes % 10.7 Eosinophils % 3.7 Basophils % 1.0 Nucleated Red Blood Cells % 0.0 Neutrophils # 6.9 Lymphocytes # 1.8 Monocytes # 1.1 H Eosinophils # 0.4 Basophils # 0.1 Nucleated Red Blood Cells # 0.0 Sodium Level 152 H Potassium Level 3.6 Chloride Level 111 H Carbon Dioxide Level 35 H Anion Gap 10 Blood Urea Nitrogen 21 H Creatinine 0.83 Glucose Level 117 Calcium Level 9.5 Medications Current Medications Ondansetron HCl (Zofran Inj) 4 mg Q6H PRN IV NAUSEA AND/OR VOMITING Last administered on 10/17/17 03:01; Admin Dose 4 MG; Start 10/14/17 at 21:30 Nitroglycerin (Nitroglycerin (Sl Tab) 0.4 Mg) 1 tab Q5M PRN SL CHEST PAIN; Start 10/14/17 at 21:30 Acetaminophen (Tylenol Tab) 650 mg Q6H PRN PO PAIN LEVEL 1-3 OR FEVER Last administered on 10/25/17 11:13; Admin Dose 650 MG; Start 10/14/17 at 21:30 Enoxaparin Sodium (Lovenox) 245 mg Q12 SC Last administered on 10/30/17 09:55 ; Admin Dose 245 MG; Start 10/16/17 at 01:00 Morphine Sulfate (morphine) 2 mg Q4H PRN IV PAIN LEVEL 7-10 Last administered on 10/17/17 01:54; Admin Dose 2 MG; Start 10/16/17 at 00:00 Multi-Ingredient Ointment (Eucerin Cream) 1 applic BID TOP Last administered on 10/30/17 09:08; Admin Dose 1 APPLIC; Start 10/16/17 at 09:00 Triamcinolone Acetonide (Kenalog 0.1% Oint) 1 applic BID TOP Last administered on 10/30/17 09:08; Admin Dose 1 APPLIC; Start 10/16/17 at 14:00 Famotidine 20 mg 20 mg HS GTB Last administered on 10/29/17 21:12; Admin Dose 20 MG; Start 10/17/17 at 21:00 Fentanyl (Sublimaze) 100 ml @ 2.5 mls/hr TITRATE IV Last administered on 10/30 03:09; Admin Dose 10 MLS/HR; Start 10/18/17 at 10:00 Lorazepam (Ativan) 2 mg Q4H PRN IV AGITATION Last administered on 10/24/17 07 :24; Admin Dose 2 MG; Start 10/18/17 at 21:00 Diagnostic Test (Pha) (Accu-Chek) 1 ea 02 XX Last administered on 10/30/17 02 :00; Admin Dose 1 EA; Start 10/20/17 at 02:00 Miscellaneous Information 1 ea NOTE XX ; Start 10/19/17 at 18:00 Glucose (Glutose) 15 gm Q15M PRN PO DECREASED GLUCOSE; Start 10/19/17 at 18:00 Glucose (Glutose) 22.5 gm Q15M PRN PO DECREASED GLUCOSE; Start 10/19/17 at 18: 00 Dextrose (D50w Syringe) 25 ml Q15M PRN IV DECREASED GLUCOSE; Start 10/19/17 at 18:00 Dextrose (D50w Syringe) 50 ml Q15M PRN IV DECREASED GLUCOSE; Start 10/19/17 at 18:00 Glucagon (Glucagen) 1 mg Q15M PRN IM DECREASED GLUCOSE; Start 10/19/17 at 18: 00 Glucose 15 gm 15 gm Q15M PRN BUCCAL DECREASED GLUCOSE; Start 10/19/17 at 18:00 Midazolam HCl (Versed) 50 ml @ 1 mls/hr TITRATE IV Last administered on 09:08; Admin Dose 10 MLS/HR; Start 10/21/17 at 09:30 IV Flush (NS 10 ml) 10 ml PRN PRN IV IV PROTOCOL; Start 10/22/17 at 19:00 Insulin Aspart (Novolog Insulin Pen) NOVOLOG *MILD* ALGORI... Q8 SC ; Start at 22:00 Docusate Sodium (Colace Liquid Cup) 100 mg BID GTB Last administered on 09:54; Admin Dose 100 MG; Start 10/24/17 at 21:00 Polyethylene Glycol 17 gm 17 gm DAILY NGT Last administered on 10/30/17 09:54 ; Admin Dose 17 GM; Start 10/24/17 at 21:00 Vancomycin HCl/ Sodium Chloride (Vancocin/NS) 500 ml @ 125 mls/hr Q12H IVPB Last administered on 10/30/17 10:58; Admin Dose 125 MLS/HR; Start 10/27/17 at 22:00; Stop 10/31/17 at 23:59 Assessment/Plan Chief Complaint/Hosp Course IMPRESSION 1. Acute on chronic hypercapnic respiratory failure.Pulmonary edema and possible pneumonia. Continues FiO2 of 60% possible intraparenchymal shunting. 2. Morbid obesity. 3. Likely diastolic dysfunction.pulmonary edema. 4. Possible thromboembolic disease. Unable to exclude thromboembolic disease given morbid obesity. Elevated D-dimers. PLAN: 1. Continue anticoagulation for deep vein thrombosis. Continue anticoagulation 2. Mechanical ventilation. Continue Versed and fentanyl. CPAP trial again today. 3. Bronchodilators. 4. Gentle diuresis if tolerated 5. Deep venous thrombosis and gastrointestinal prophylaxis. 6. Diamox for chronic hypercapnia. 7. Increase free water. Discussed with the next of kin need for tracheostomy and PEG tube. Patient's family agreed to tracheostomy and PEG tube. Problems: BRIGETTE CODY MD, [facility] Oct 30, 2017 12:21
[2017-10-30] MEDS ORDERED: ALTEPLASE (CATHFLO) 2 MG INJ CATHETER ONE (14:00)
[2017-10-30] MEDS: DEXTROSE 5% 1,000 ML IV SCH ×2 (14:12→21:39)
[2017-10-30] MEDS: LACTULOSE 30ML CUP PO SCH ×2 (15:26→21:39)
--- NOTE | 2017-10-30 15:26 | PN ---
Date/Time of Note Date/Time of Note DATE: 10/30/17 TIME: 15:21 Assessment/Plan VTE Prophylaxis VTE Prophylaxis Intervention: SCD's Lines/Catheters IV Catheter Type (from Nrsg): PICC Line Central line still needed: No Urinary Cath still in place: Yes Reason Cath still needed: other (indicate) (critically ill) Assessment/Plan Assessment/Plan 47 yo M with super morbid obesity, DM presented to SOB intubated for airway protection in setting of CO2 narcosis and pulmonary edema. #fevers, leukocytosis RESOLVED: etio unclear. Lung imaging without alysa infiltrate, though resp culture with MSSA, urine with MSSA and enterococcus narrow abx to Ancef, anticipate 7 days of therapy for ?VAP (would also cover for CAUTI v colonization) from .-10.31 #prolonged combined hypoxic and hypercapnic respiratory failure -per pulm, pt remains intubated as not able to achieve weaning parameters--> surgical consults placed for PEG/trach #possible PE? -cont therapeutic LMWH. consider warfarin after PEG/trach are complete #hypernatremia; pt with calculated ~9L FW deficit may need to resume lasix tomorrow given early volume overload on CXR talked to RD about TF formulation, she stated she would titrate the TFs will also start hypotonic fluids. dw RN, she's concerned that excess FW via NG would precipitate aspiration critical care time:30 minutes Subjective 24 Hr Interval Summary Free Text/Dictation clinically unchangedthough had his eyes opened this AM Exam/Review of Systems Vital Signs Vitals Vital Signs Date Time Temp Pulse Resp B/P Pulse Ox O2 Delivery O2 Flow Rate FiO2 10/30/17 13:30 79 18 96 40 10/30/17 11:00 121/69 10/30/17 09:00 Mechanical Ventilator 10/30/17 08:00 99.5 Intake and Output 10/29/17 10/29/17 10/30/17 15:00 23:00 07:00 Intake Total 773 ml 740 ml 1700 ml Output Total 530 ml 530 ml 420 ml Balance 243 ml 210 ml 1280 ml Exam opens eyes spontaneously, still on sedation no mrg lungs clear abd soft LEs unchanged labs noted, WBCsbetter CXR with vascular congestion Results Result Diagram: 10/30/1761810/30/17618 Results 24 hrs Laboratory Tests Test 10/29/17 21:21 10/30/17 06:00 10/30/17 06:19 10/30/17 14:06 Bedside Glucose 96 97 97 White Blood Count 10.3 # Red Blood Count 4.54 L Hemoglobin 11.2 L Hematocrit 38.3 L Mean Corpuscular Volume 84.4 Mean Corpuscular Hemoglobin 24.7 L Mean Corpuscular Hemoglobin Concent 29.2 L Red Cell Distribution Width 18.1 H Platelet Count 404 Mean Platelet Volume 11.2 H Neutrophils % 66.3 Lymphocytes % 17.1 Monocytes % 10.7 Eosinophils % 3.7 Basophils % 1.0 Nucleated Red Blood Cells % 0.0 Neutrophils # 6.9 Lymphocytes # 1.8 Monocytes # 1.1 H Eosinophils # 0.4 Basophils # 0.1 Nucleated Red Blood Cells # 0.0 Sodium Level 152 H Potassium Level 3.6 Chloride Level 111 H Carbon Dioxide Level 35 H Anion Gap 10 Blood Urea Nitrogen 21 H Creatinine 0.83 Glucose Level 117 Calcium Level 9.5 Medications Medications Current Medications Ondansetron HCl (Zofran Inj) 4 mg Q6H PRN IV NAUSEA AND/OR VOMITING Last administered on 10/17/17 03:01; Admin Dose 4 MG; Start 10/14/17 at 21:30 Nitroglycerin (Nitroglycerin (Sl Tab) 0.4 Mg) 1 tab Q5M PRN SL CHEST PAIN; Start 10/14/17 at 21:30 Acetaminophen (Tylenol Tab) 650 mg Q6H PRN PO PAIN LEVEL 1-3 OR FEVER Last administered on 10/25/17 11:13; Admin Dose 650 MG; Start 10/14/17 at 21:30 Enoxaparin Sodium (Lovenox) 245 mg Q12 SC Last administered on 10/30/17 09:55 ; Admin Dose 245 MG; Start 10/16/17 at 01:00 Morphine Sulfate (morphine) 2 mg Q4H PRN IV PAIN LEVEL 7-10 Last administered on 10/17/17 01:54; Admin Dose 2 MG; Start 10/16/17 at 00:00 Multi-Ingredient Ointment (Eucerin Cream) 1 applic BID TOP Last administered on 10/30/17 09:08; Admin Dose 1 APPLIC; Start 10/16/17 at 09:00 Triamcinolone Acetonide (Kenalog 0.1% Oint) 1 applic BID TOP Last administered on 10/30/17 09:08; Admin Dose 1 APPLIC; Start 10/16/17 at 14:00 Famotidine 20 mg 20 mg HS GTB Last administered on 10/29/17 21:12; Admin Dose 20 MG; Start 10/17/17 at 21:00 Fentanyl (Sublimaze) 100 ml @ 2.5 mls/hr TITRATE IV Last administered on 10/30 12:55; Admin Dose 10 MLS/HR; Start 10/18/17 at 10:00 Lorazepam (Ativan) 2 mg Q4H PRN IV AGITATION Last administered on 10/24/17 07 :24; Admin Dose 2 MG; Start 10/18/17 at 21:00 Diagnostic Test (Pha) (Accu-Chek) 1 ea 02 XX Last administered on 10/30/17 02 :00; Admin Dose 1 EA; Start 10/20/17 at 02:00 Miscellaneous Information 1 ea NOTE XX ; Start 10/19/17 at 18:00 Glucose (Glutose) 15 gm Q15M PRN PO DECREASED GLUCOSE; Start 10/19/17 at 18:00 Glucose (Glutose) 22.5 gm Q15M PRN PO DECREASED GLUCOSE; Start 10/19/17 at 18: 00 Dextrose (D50w Syringe) 25 ml Q15M PRN IV DECREASED GLUCOSE; Start 10/19/17 at 18:00 Dextrose (D50w Syringe) 50 ml Q15M PRN IV DECREASED GLUCOSE; Start 10/19/17 at 18:00 Glucagon (Glucagen) 1 mg Q15M PRN IM DECREASED GLUCOSE; Start 10/19/17 at 18: 00 Glucose 15 gm 15 gm Q15M PRN BUCCAL DECREASED GLUCOSE; Start 10/19/17 at 18:00 Midazolam HCl (Versed) 50 ml @ 1 mls/hr TITRATE IV Last administered on 14:03; Admin Dose 10 MLS/HR; Start 10/21/17 at 09:30 IV Flush (NS 10 ml) 10 ml PRN PRN IV IV PROTOCOL; Start 10/22/17 at 19:00 Insulin Aspart (Novolog Insulin Pen) NOVOLOG *MILD* ALGORI... Q8 SC ; Start at 22:00 Docusate Sodium (Colace Liquid Cup) 100 mg BID GTB Last administered on 09:54; Admin Dose 100 MG; Start 10/24/17 at 21:00 Polyethylene Glycol 17 gm 17 gm DAILY NGT Last administered on 10/30/17 09:54 ; Admin Dose 17 GM; Start 10/24/17 at 21:00 Vancomycin HCl 1.75 gm/Sodium Chloride 500 ml @ 125 mls/hr Q12H IVPB Last administered on 10/30/17 10:58; Admin Dose 125 MLS/HR; Start 10/27/17 at 22: 00; Stop 10/31/17 at 23:59 Dextrose (D5W) 1,000 ml @ 100 mls/hr Q10H IV ; Start 10/30/17 at 14:00 Lactulose (Enulose) 20 gm Q8 PO ; Start 10/30/17 at 14:30 LEXII LADD MD Oct 30, 2017 15:26
--- NOTE | 2017-10-30 17:23 | CONS ---
Date/Time of Note Date/Time of Note DATE: 10/30/17 TIME: 17:08 Assessment/Plan Assessment/Plan Chief Complaint/Hosp Course Assessment: Feeding difficulty Respiratory failure Ventilator dependent Plan: PEG placement after tracheostomy is performed Patient family is in agreement with the treatment plan. Discussed the plan of action with nursing staff Consultation performed in collaboration with Dr. Joseph Problems: Consultation Date/Type/Reason Admit Date/Time Oct 14, 2017 at 20:55 Date of Consultation: Oct 30, 2017 Reason for Consultation GI Hx of Present Illness 47-year-old male with history of morbid obesity, diabetes cardiac arrest and acute respiratory failure. Currently on the ventilator. Family wants to proceed with tracheostomy and gastrostomy tube placement. Patient intubated Past Medical History Medical History: congestive heart failure, diabetes Past Surgical History Past Surgical Hx: no surgical history Family History Significant Family History: no pertinent family hx Social History Alcohol Use: none Smoking Status: Former smoker Drug Use: marijuana Other Social History Father , mother unable to make the decision Exam/Review of Systems Vital Signs Vitals Vital Signs Date Time Temp Pulse Resp B/P Pulse Ox O2 Delivery O2 Flow Rate FiO2 10/30/17 17:00 85 20 129/79 92 Mechanical Ventilator 10/30/17 15:20 40 10/30/17 12:00 99.0 Intake and Output 10/29/17 10/29/17 10/30/17 15:00 23:00 07:00 Intake Total 773 ml 740 ml 1700 ml Output Total 530 ml 530 ml 420 ml Balance 243 ml 210 ml 1280 ml Exam Constitutional: distress (Respiratory distress on the ventilator), obese ( Morbidly obese) Psych: anxiety Results Result Diagram: 10/30/17 0619 10/30/17 0619 Results 24 hrs Laboratory Tests Test 10/29/17 21:21 10/30/17 06:00 10/30/17 06:19 10/30/17 14:06 Bedside Glucose 96 97 97 White Blood Count 10.3 # Red Blood Count 4.54 L Hemoglobin 11.2 L Hematocrit 38.3 L Mean Corpuscular Volume 84.4 Mean Corpuscular Hemoglobin 24.7 L Mean Corpuscular Hemoglobin Concent 29.2 L Red Cell Distribution Width 18.1 H Platelet Count 404 Mean Platelet Volume 11.2 H Neutrophils % 66.3 Lymphocytes % 17.1 Monocytes % 10.7 Eosinophils % 3.7 Basophils % 1.0 Nucleated Red Blood Cells % 0.0 Neutrophils # 6.9 Lymphocytes # 1.8 Monocytes # 1.1 H Eosinophils # 0.4 Basophils # 0.1 Nucleated Red Blood Cells # 0.0 Sodium Level 152 H Potassium Level 3.6 Chloride Level 111 H Carbon Dioxide Level 35 H Anion Gap 10 Blood Urea Nitrogen 21 H Creatinine 0.83 Glucose Level 117 Calcium Level 9.5 Medications Medications Current Medications Ondansetron HCl (Zofran Inj) 4 mg Q6H PRN IV NAUSEA AND/OR VOMITING Last administered on 10/17/17 03:01; Admin Dose 4 MG; Start 10/14/17 at 21:30 Nitroglycerin (Nitroglycerin (Sl Tab) 0.4 Mg) 1 tab Q5M PRN SL CHEST PAIN; Start 10/14/17 at 21:30 Acetaminophen (Tylenol Tab) 650 mg Q6H PRN PO PAIN LEVEL 1-3 OR FEVER Last administered on 10/25/17 11:13; Admin Dose 650 MG; Start 10/14/17 at 21:30 Enoxaparin Sodium (Lovenox) 245 mg Q12 SC Last administered on 10/30/17 09:55 ; Admin Dose 245 MG; Start 10/16/17 at 01:00 Morphine Sulfate (morphine) 2 mg Q4H PRN IV PAIN LEVEL 7-10 Last administered on 10/17/17 01:54; Admin Dose 2 MG; Start 10/16/17 at 00:00 Multi-Ingredient Ointment (Eucerin Cream) 1 applic BID TOP Last administered on 10/30/17 09:08; Admin Dose 1 APPLIC; Start 10/16/17 at 09:00 Triamcinolone Acetonide (Kenalog 0.1% Oint) 1 applic BID TOP Last administered on 10/30/17 09:08; Admin Dose 1 APPLIC; Start 10/16/17 at 14:00 Famotidine 20 mg 20 mg HS GTB Last administered on 10/29/17 21:12; Admin Dose 20 MG; Start 10/17/17 at 21:00 Fentanyl (Sublimaze) 100 ml @ 2.5 mls/hr TITRATE IV Last administered on 10/30 12:55; Admin Dose 10 MLS/HR; Start 11/17/17 at 10:00 Lorazepam (Ativan) 2 mg Q4H PRN IV AGITATION Last administered on 10/24/17 07 :24; Admin Dose 2 MG; Start 10/18/17 at 21:00 Diagnostic Test (Pha) (Accu-Chek) 1 ea 02 XX Last administered on 10/30/17 02 :00; Admin Dose 1 EA; Start 10/20/17 at 02:00 Miscellaneous Information 1 ea NOTE XX ; Start 10/19/17 at 18:00 Glucose (Glutose) 15 gm Q15M PRN PO DECREASED GLUCOSE; Start 10/19/17 at 18:00 Glucose (Glutose) 22.5 gm Q15M PRN PO DECREASED GLUCOSE; Start 10/19/17 at 18: 00 Dextrose (D50w Syringe) 25 ml Q15M PRN IV DECREASED GLUCOSE; Start 10/19/17 at 18:00 Dextrose (D50w Syringe) 50 ml Q15M PRN IV DECREASED GLUCOSE; Start 10/19/17 at 18:00 Glucagon (Glucagen) 1 mg Q15M PRN IM DECREASED GLUCOSE; Start 10/19/17 at 18: 00 Glucose 15 gm 15 gm Q15M PRN BUCCAL DECREASED GLUCOSE; Start 10/19/17 at 18:00 Midazolam HCl (Versed) 50 ml @ 1 mls/hr TITRATE IV Last administered on 14:03; Admin Dose 10 MLS/HR; Start 10/21/17 at 09:30 IV Flush (NS 10 ml) 10 ml PRN PRN IV IV PROTOCOL; Start 10/22/17 at 19:00 Insulin Aspart (Novolog Insulin Pen) NOVOLOG *MILD* ALGORI... Q8 SC ; Start at 22:00 Docusate Sodium (Colace Liquid Cup) 100 mg BID GTB Last administered on 09:54; Admin Dose 100 MG; Start 10/24/17 at 21:00 Polyethylene Glycol 17 gm 17 gm DAILY NGT Last administered on 10/30/17 09:54 ; Admin Dose 17 GM; Start 10/24/17 at 21:00 Vancomycin HCl 1.75 gm/Sodium Chloride 500 ml @ 125 mls/hr Q12H IVPB Last administered on 10/30/17 10:58; Admin Dose 125 MLS/HR; Start 10/27/17 at 22: 00; Stop 10/31/17 at 23:59 Dextrose (D5W) 1,000 ml @ 100 mls/hr Q10H IV ; Start 10/30/17 at 14:00 Lactulose (Enulose) 20 gm Q8 PO ; Start 10/30/17 at 14:30 Copies To: CC: JOSE DAVID JOSEPH MD, ANASTASIA NP Oct 30, 2017 17:22
--- NOTE | 2017-10-30 20:20 | PN ---
Date/Time of Note Date/Time of Note DATE: 10/30/17 TIME: 20:19 Assessment/Plan Lines/Catheters IV Catheter Type (from Nrsg): PICC Line Fierro in Place (from Nrsg): Yes Assessment/Plan Chief Complaint/Hosp Course IMPRESSION: Respiratory failure. RECOMMENDATIONS: We will proceed with placement of a tracheostomy. on Saturday We will discuss with the referring physicians. Problems: Subjective 24 Hr Interval Summary Constitutional: improved Pain Control: mild Exam/Review of Systems Vital Signs Vitals Vital Signs Date Time Temp Pulse Resp B/P Pulse Ox O2 Delivery O2 Flow Rate FiO2 10/30/17 19:03 87 22 95 40 10/30/17 17:00 129/79 Mechanical Ventilator 10/30/17 12:00 99.0 Intake and Output 10/29/17 10/29/17 10/30/17 15:00 23:00 07:00 Intake Total 773 ml 740 ml 1740 ml Output Total 530 ml 530 ml 495 ml Balance 243 ml 210 ml 1245 ml Exam ENMT: mucosa pink and moist, nl external ears & nose, nl lips & teeth, nl nasal mucosa & septum Neck: non-tender, supple Respiratory: clear to auscultation, normal air movement Cardiovascular: nl pulses, regular rate and rhythm Gastrointestinal: nl liver, spleen, non-tender, soft Results Result Diagram: 10/30/17 0619 10/30/17 0619 DRISS JIMENEZ MD Oct 30, 2017 20:20
[2017-10-30] MEDS: FAMOTIDINE 20 MG TAB GTB SCH (21:38)
[2017-10-31] VITALS (33 sets, daily range): BP systolic 123–154; BP diastolic 68–91; PULSE 76–101; RESP 18–34
[2017-10-31] MEDS: MIDAZOLAM (DRIP) 50 mg/50 mL 50 ML IV SCH ×5 (00:45→21:24)
[2017-10-31] MEDS: ACCU-CHEK XX SCH (01:31)
[2017-10-31 05:14] LABS: BASOPHIL # 0.1 10^3/ul (0.0-0.1); BASOPHILS % 0.9 % (0.0-2.0); EOSINOPHILS # 0.4 10^3/ul (0.0-0.5); EOSINOPHILS % 3.8 % (0.0-7.0); HEMATOCRIT 36.9 % (42.0-52.0); HEMOGLOBIN 10.9 g/dl (14.0-18.0); LYMPHOCYTES # 2.2 10^3/ul (0.8-2.9); LYMPHOCYTES % 20.3 % (15.0-51.0); MEAN CORPUSCULAR HGB CONC 29.5 g/dl (32.0-37.0); MEAN CORPUSCULAR VOLUME 84.6 fl (82.0-101.0); MEAN PLATELET VOLUME 11.3 fl (7.4-10.4); MONOCYTE # 1.1 10^3/ul (0.3-0.9); NEUTROPHIL # 6.8 10^3/ul (1.6-7.5); PLATELET COUNT 400 10^3/UL (140-415); RED BLOOD COUNT 4.36 10^6/ul (4.70-6.10); RED CELL DISTRIBUTION WIDTH 17.9 % (11.5-14.5); WHITE BLOOD COUNT 10.6 10^3/ul (4.8-10.8)
[2017-10-31 05:48] LABS: CALCIUM 9.3 mg/dl (8.4-10.2); CREATININE 0.79 mg/dl (0.61-1.24); MAGNESIUM 1.8 mg/dl (1.7-2.5); POTASSIUM 3.5 mmol/L (3.5-5.1)
[2017-10-31] MEDS: INSULIN ASPART [NOVOLOG] 3 ML PEN SC SCH ×3 (05:54→21:19)
[2017-10-31] MEDS: FENTAnyl (DRIP) 1000 mcg/100mL 100 ML IV SCH ×2 (05:55→16:05)
[2017-10-31] MEDS: LACTULOSE 30ML CUP PO SCH ×3 (05:58→21:18)
[2017-10-31] MEDS: ENOXAPARIN 100 MG/ML SYG SC SCH ×2 (09:00→21:00)
[2017-10-31] MEDS: EUCERIN 113 GM CR TOP SCH ×2 (09:22→20:47)
[2017-10-31] MEDS: DOCUSATE SODIUM 10 MG/ML (10ML CUP) GTB SCH ×2 (09:22→20:44)
[2017-10-31] MEDS: TRIAMCINOLONE ACET 0.1% 15 GM OINT TOP SCH ×2 (09:22→20:46)
[2017-10-31] MEDS: POLYETHYLENE GLYCOL 17 GM PACKET NGT SCH (09:22)
--- NOTE | 2017-10-31 10:00 | CONS ---
Date/Time of Note Date/Time of Note DATE: 10/31/17 TIME: 09:57 Assessment/Plan Assessment/Plan Additional Assessment/Plan There has been no significant change in pt overall clinical condition... I have been following , failed CPAP yesterday... pt has family I have spoken with in the past will reschedule follow up. Consultation Date/Type/Reason Admit Date/Time Oct 14, 2017 at 20:55 Initial Consult Date 10/30/17 Type of Consultation: Pulmonary Exam/Review of Systems Vital Signs Vitals Vital Signs Date Time Temp Pulse Resp B/P Pulse Ox O2 Delivery O2 Flow Rate FiO2 10/31/17 08:30 84 19 96 40 10/31/17 06:00 137/74 Mechanical Ventilator 10/31/17 04:00 99.2 Intake and Output 10/30/17 10/30/17 10/31/17 15:00 23:00 07:00 Intake Total 1080 ml 1530 ml 2080 ml Output Total 570 ml 520 ml 385 ml Balance 510 ml 1010 ml 1695 ml Results Result Diagram: 10/31/17 0430 10/31/17 0432 Results 24 hrs Laboratory Tests Test 10/30/17 14:06 10/30/17 21:50 10/31/17 04:30 10/31/17 04:32 Bedside Glucose 97 101 White Blood Count 10.6 Red Blood Count 4.36 L Hemoglobin 10.9 L Hematocrit 36.9 L Mean Corpuscular Volume 84.6 Mean Corpuscular Hemoglobin 25.0 L Mean Corpuscular Hemoglobin Concent 29.5 L Red Cell Distribution Width 17.9 H Platelet Count 400 Mean Platelet Volume 11.3 H Neutrophils % 64.0 Lymphocytes % 20.3 Monocytes % 10.0 Eosinophils % 3.8 Basophils % 0.9 Nucleated Red Blood Cells % 0.0 Neutrophils # 6.8 Lymphocytes # 2.2 Monocytes # 1.1 H Eosinophils # 0.4 Basophils # 0.1 Nucleated Red Blood Cells # 0.0 Sodium Level 151 H Potassium Level 3.5 Chloride Level 109 Carbon Dioxide Level 35 H Anion Gap 11 Blood Urea Nitrogen 14 Creatinine 0.79 Glucose Level 106 Calcium Level 9.3 Magnesium Level 1.8 Test 10/31/17 05:54 Bedside Glucose 113 Medications Medications Current Medications Ondansetron HCl (Zofran Inj) 4 mg Q6H PRN IV NAUSEA AND/OR VOMITING Last administered on 10/17/17 03:01; Admin Dose 4 MG; Start 10/14/17 at 21:30 Nitroglycerin (Nitroglycerin (Sl Tab) 0.4 Mg) 1 tab Q5M PRN SL CHEST PAIN; Start 10/14/17 at 21:30 Acetaminophen (Tylenol Tab) 650 mg Q6H PRN PO PAIN LEVEL 1-3 OR FEVER Last administered on 10/25/17 11:13; Admin Dose 650 MG; Start 10/14/17 at 21:30 Enoxaparin Sodium (Lovenox) 245 mg Q12 SC Last administered on 10/30/17 21:52 ; Admin Dose 245 MG; Start 10/16/17 at 01:00 Morphine Sulfate (morphine) 2 mg Q4H PRN IV PAIN LEVEL 7-10 Last administered on 10/17/17 01:54; Admin Dose 2 MG; Start 10/16/17 at 00:00 Multi-Ingredient Ointment (Eucerin Cream) 1 applic BID TOP Last administered on 10/31/17 09:22; Admin Dose 1 APPLIC; Start 10/16/17 at 09:00 Triamcinolone Acetonide (Kenalog 0.1% Oint) 1 applic BID TOP Last administered on 10/31/17 09:22; Admin Dose 1 APPLIC; Start 10/16/17 at 14:00 Famotidine 20 mg 20 mg HS GTB Last administered on 10/30/17 21:38; Admin Dose 20 MG; Start 10/17/17 at 21:00 Fentanyl (Sublimaze) 100 ml @ 2.5 mls/hr TITRATE IV Last administered on 10/31 05:55; Admin Dose 10 MLS/HR; Start 10/18/17 at 10:00 Lorazepam (Ativan) 2 mg Q4H PRN IV AGITATION Last administered on 10/24/17 07 :24; Admin Dose 2 MG; Start 10/18/17 at 21:00 Diagnostic Test (Pha) (Accu-Chek) 1 ea 02 XX Last administered on 10/31/17 01 :31; Admin Dose 1 EA; Start 10/20/17 at 02:00 Miscellaneous Information 1 ea NOTE XX ; Start 10/19/17 at 18:00 Glucose (Glutose) 15 gm Q15M PRN PO DECREASED GLUCOSE; Start 10/19/17 at 18:00 Glucose (Glutose) 22.5 gm Q15M PRN PO DECREASED GLUCOSE; Start 10/19/17 at 18: 00 Dextrose (D50w Syringe) 25 ml Q15M PRN IV DECREASED GLUCOSE; Start 10/19/17 at 18:00 Dextrose (D50w Syringe) 50 ml Q15M PRN IV DECREASED GLUCOSE; Start 10/19/17 at 18:00 Glucagon (Glucagen) 1 mg Q15M PRN IM DECREASED GLUCOSE; Start 10/19/17 at 18: 00 Glucose 15 gm 15 gm Q15M PRN BUCCAL DECREASED GLUCOSE; Start 10/19/17 at 18:00 Midazolam HCl (Versed) 50 ml @ 1 mls/hr TITRATE IV Last administered on 04:15; Admin Dose 10 MLS/HR; Start 10/21/17 at 09:30 IV Flush (NS 10 ml) 10 ml PRN PRN IV IV PROTOCOL; Start 10/22/17 at 19:00 Insulin Aspart (Novolog Insulin Pen) NOVOLOG *MILD* ALGORI... Q8 SC ; Start at 22:00 Docusate Sodium (Colace Liquid Cup) 100 mg BID GTB Last administered on 09:22; Admin Dose 100 MG; Start 10/24/17 at 21:00 Polyethylene Glycol 17 gm 17 gm DAILY NGT Last administered on 10/31/17 09:22 ; Admin Dose 17 GM; Start 10/24/17 at 21:00 Vancomycin HCl 1.75 gm/Sodium Chloride 500 ml @ 125 mls/hr Q12H IVPB Last administered on 10/30/17 21:39; Admin Dose 125 MLS/HR; Start 10/27/17 at 22: 00; Stop 10/31/17 at 23:59 Dextrose (D5W) 1,000 ml @ 100 mls/hr Q10H IV Last administered on 10/30/17 21:39; Admin Dose 100 MLS/HR; Start 10/30/17 at 14:00 Lactulose (Enulose) 20 gm Q8 PO Last administered on 10/31/17 05:58; Admin Dose 20 GM; Start 10/30/17 at 14:30 JACK FONTENOT Oct 31, 2017 10:00
--- NOTE | 2017-10-31 10:06 | CONS ---
Date/Time of Note Date/Time of Note DATE: 10/31/17 TIME: 10:03 Consult Date/Type/Reason Admit Date/Time Oct 14, 2017 at 20:55 Type of Consultation: Pulmonary Subjective Patient more alert this morning. Opens eyes follows simple commands off sedation. Objective Vital Signs Date Time Temp Pulse Resp B/P Pulse Ox O2 Delivery O2 Flow Rate FiO2 10/31/17 08:30 84 19 96 40 10/31/17 06:00 137/74 Mechanical Ventilator 10/31/17 04:00 99.2 Intake and Output 10/30/17 10/30/17 10/31/17 15:00 23:00 07:00 Intake Total 1080 ml 1530 ml 2080 ml Output Total 570 ml 520 ml 385 ml Balance 510 ml 1010 ml 1695 ml Exam GENERAL: Morbidly obese gentleman intubated on mechanical ventilation appears comfortable at rest VITAL SIGNS: per chart NECK: Supple. No JVD or lymphadenopathy. CARDIAC EXAM: S1, S2. No added sounds or murmurs. CHEST: Diminished air entry both lung bases. ABDOMEN: Soft, nontender. No guarding or rebound. Diminished bowel sounds EXTREMITIES: No cyanosis, clubbing or edema. NEUROLOGIC: Generalized weakness. Results/Medications Result Diagram: 10/31/17 0430 10/31/17 0432 Results 24 hrs Chest x-ray Ongoing pulmonary edema. Laboratory Tests Test 10/30/17 14:06 10/30/17 21:50 10/31/17 04:30 10/31/17 04:32 Bedside Glucose 97 101 White Blood Count 10.6 Red Blood Count 4.36 L Hemoglobin 10.9 L Hematocrit 36.9 L Mean Corpuscular Volume 84.6 Mean Corpuscular Hemoglobin 25.0 L Mean Corpuscular Hemoglobin Concent 29.5 L Red Cell Distribution Width 17.9 H Platelet Count 400 Mean Platelet Volume 11.3 H Neutrophils % 64.0 Lymphocytes % 20.3 Monocytes % 10.0 Eosinophils % 3.8 Basophils % 0.9 Nucleated Red Blood Cells % 0.0 Neutrophils # 6.8 Lymphocytes # 2.2 Monocytes # 1.1 H Eosinophils # 0.4 Basophils # 0.1 Nucleated Red Blood Cells # 0.0 Sodium Level 151 H Potassium Level 3.5 Chloride Level 109 Carbon Dioxide Level 35 H Anion Gap 11 Blood Urea Nitrogen 14 Creatinine 0.79 Glucose Level 106 Calcium Level 9.3 Magnesium Level 1.8 Test 10/31/17 05:54 Bedside Glucose 113 Medications Current Medications Ondansetron HCl (Zofran Inj) 4 mg Q6H PRN IV NAUSEA AND/OR VOMITING Last administered on 10/17/17 03:01; Admin Dose 4 MG; Start 10/14/17 at 21:30 Nitroglycerin (Nitroglycerin (Sl Tab) 0.4 Mg) 1 tab Q5M PRN SL CHEST PAIN; Start 10/14/17 at 21:30 Acetaminophen (Tylenol Tab) 650 mg Q6H PRN PO PAIN LEVEL 1-3 OR FEVER Last administered on 10/25/17 11:13; Admin Dose 650 MG; Start 10/14/17 at 21:30 Enoxaparin Sodium (Lovenox) 245 mg Q12 SC Last administered on 10/30/17 21:52 ; Admin Dose 245 MG; Start 10/16/17 at 01:00 Morphine Sulfate (morphine) 2 mg Q4H PRN IV PAIN LEVEL 7-10 Last administered on 10/17/17 01:54; Admin Dose 2 MG; Start 10/16/17 at 00:00 Multi-Ingredient Ointment (Eucerin Cream) 1 applic BID TOP Last administered on 10/31/17 09:22; Admin Dose 1 APPLIC; Start 10/16/17 at 09:00 Triamcinolone Acetonide (Kenalog 0.1% Oint) 1 applic BID TOP Last administered on 10/31/17 09:22; Admin Dose 1 APPLIC; Start 10/16/17 at 14:00 Famotidine 20 mg 20 mg HS GTB Last administered on 10/30/17 21:38; Admin Dose 20 MG; Start 10/17/17 at 21:00 Fentanyl (Sublimaze) 100 ml @ 2.5 mls/hr TITRATE IV Last administered on 10/31 05:55; Admin Dose 10 MLS/HR; Start 10/18/17 at 10:00 Lorazepam (Ativan) 2 mg Q4H PRN IV AGITATION Last administered on 10/24/17 07 :24; Admin Dose 2 MG; Start 10/18/17 at 21:00 Diagnostic Test (Pha) (Accu-Chek) 1 ea 02 XX Last administered on 10/31/17 01 :31; Admin Dose 1 EA; Start 10/20/17 at 02:00 Miscellaneous Information 1 ea NOTE XX ; Start 10/19/17 at 18:00 Glucose (Glutose) 15 gm Q15M PRN PO DECREASED GLUCOSE; Start 10/19/17 at 18:00 Glucose (Glutose) 22.5 gm Q15M PRN PO DECREASED GLUCOSE; Start 10/19/17 at 18: 00 Dextrose (D50w Syringe) 25 ml Q15M PRN IV DECREASED GLUCOSE; Start 10/19/17 at 18:00 Dextrose (D50w Syringe) 50 ml Q15M PRN IV DECREASED GLUCOSE; Start 10/19/17 at 18:00 Glucagon (Glucagen) 1 mg Q15M PRN IM DECREASED GLUCOSE; Start 10/19/17 at 18: 00 Glucose 15 gm 15 gm Q15M PRN BUCCAL DECREASED GLUCOSE; Start 10/19/17 at 18:00 Midazolam HCl (Versed) 50 ml @ 1 mls/hr TITRATE IV Last administered on 04:15; Admin Dose 10 MLS/HR; Start 10/21/17 at 09:30 IV Flush (NS 10 ml) 10 ml PRN PRN IV IV PROTOCOL; Start 10/22/17 at 19:00 Insulin Aspart (Novolog Insulin Pen) NOVOLOG *MILD* ALGORI... Q8 SC ; Start at 22:00 Docusate Sodium (Colace Liquid Cup) 100 mg BID GTB Last administered on 09:22; Admin Dose 100 MG; Start 10/24/17 at 21:00 Polyethylene Glycol 17 gm 17 gm DAILY NGT Last administered on 10/31/17 09:22 ; Admin Dose 17 GM; Start 10/24/17 at 21:00 Vancomycin HCl 1.75 gm/Sodium Chloride 500 ml @ 125 mls/hr Q12H IVPB Last administered on 10/30/17 21:39; Admin Dose 125 MLS/HR; Start 10/27/17 at 22: 00; Stop 10/31/17 at 23:59 Dextrose (D5W) 1,000 ml @ 100 mls/hr Q10H IV Last administered on 10/30/17 21:39; Admin Dose 100 MLS/HR; Start 10/30/17 at 14:00 Lactulose (Enulose) 20 gm Q8 PO Last administered on 10/31/17t 05:58; Admin Dose 20 GM; Start 10/30/17 at 14:30 Assessment/Plan Chief Complaint/Hosp Course IMPRESSION 1. Acute on chronic hypercapnic respiratory failure.Pulmonary edema and possible pneumonia. Decrease FiO2 as tolerated. 2. Morbid obesity. 3. Likely diastolic dysfunction.pulmonary edema. 4. Possible thromboembolic disease. Unable to exclude thromboembolic disease given morbid obesity. Elevated D-dimers. PLAN: 1. Continue anticoagulation for deep vein thrombosis. 2. Mechanical ventilation. Continue Versed and fentanyl. CPAP trial again today. Unlikely to be liberated from mechanical ventilation. 3. Bronchodilators. 4. Gentle diuresis if tolerated 5. Deep venous thrombosis and gastrointestinal prophylaxis. 6. Diamox for chronic hypercapnia. 7. Increase free water. Discussed with the next of kin need for tracheostomy and PEG tube. Patient's family agreed to tracheostomy and PEG tube. Problems: BRIGETTE CODY MD, [facility] Oct 31, 2017 10:06
[2017-10-31] MEDS: VANCOMYCIN 1.75 GM in NS 500 ML IVPB SCH ×2 (11:00→21:18)
[2017-10-31] MEDS: DEXTROSE 5% 1,000 ML IV SCH ×2 (12:00→20:44)
--- NOTE | 2017-10-31 14:27 | PN ---
Date/Time of Note Date/Time of Note DATE: 10/31/17 TIME: 14:25 Assessment/Plan VTE Prophylaxis VTE Prophylaxis Intervention: SCD's Lines/Catheters IV Catheter Type (from Nrsg): PICC Line Central line still needed: No Urinary Cath still in place: Yes Reason Cath still needed: other (indicate) (criticall archana) Assessment/Plan Assessment/Plan 47 yo M with super morbid obesity, DM presented to SOB intubated for airway protection in setting of CO2 narcosis and pulmonary edema. #fevers, leukocytosis RESOLVED: etio unclear. Lung imaging without alysa infiltrate, though resp culture with MSSA, urine with MSSA and enterococcus narrowed abx to Ancef, anticipate 7 days of therapy for ?VAP (would also cover for CAUTI v colonization) from 10.25-10.31 #prolonged combined hypoxic and hypercapnic respiratory failure -per pulm, pt remains intubated as not able to achieve weaning parameters--> surgical consults placed for PEG/trach. procedures pending #possible PE? -cont therapeutic LMWH. consider warfarin after PEG/trach are complete #hypernatremia; pt with calculated ~9L FW deficit may need to resume lasix tomorrow given early volume overload on CXR talked to RD about TF formulation, she stated she would titrate the TFs now on hypotonic fluids, minimal improvement critical care time:30 minutes Subjective 24 Hr Interval Summary Free Text/Dictation unchanged from yesterday Exam/Review of Systems Vital Signs Vitals Vital Signs Date Time Temp Pulse Resp B/P Pulse Ox O2 Delivery O2 Flow Rate FiO2 10/31/17 13:06 83 18 97 40 10/31/17 13:00 135/76 Mechanical Ventilator 10/31/17 12:00 98.7 Intake and Output 10/30/17 10/30/17 10/31/17 14:59 22:59 06:59 Intake Total 980 ml 1515 ml 2255 ml Output Total 575 ml 535 ml 440 ml Balance 405 ml 980 ml 1815 ml Exam intubated and sedated no mrg lungs without wheezes obese LEs unchanged Results Result Diagram: 10/31/17 0430 10/31/17 0432 Results 24 hrs Laboratory Tests Test 10/30/17 21:50 10/31/17 04:30 10/31/17 04:32 10/31/17 05:54 Bedside Glucose 101 113 White Blood Count 10.6 Red Blood Count 4.36 L Hemoglobin 10.9 L Hematocrit 36.9 L Mean Corpuscular Volume 84.6 Mean Corpuscular Hemoglobin 25.0 L Mean Corpuscular Hemoglobin Concent 29.5 L Red Cell Distribution Width 17.9 H Platelet Count 400 Mean Platelet Volume 11.3 H Neutrophils % 64.0 Lymphocytes % 20.3 Monocytes % 10.0 Eosinophils % 3.8 Basophils % 0.9 Nucleated Red Blood Cells % 0.0 Neutrophils # 6.8 Lymphocytes # 2.2 Monocytes # 1.1 H Eosinophils # 0.4 Basophils # 0.1 Nucleated Red Blood Cells # 0.0 Sodium Level 151 H Potassium Level 3.5 Chloride Level 109 Carbon Dioxide Level 35 H Anion Gap 11 Blood Urea Nitrogen 14 Creatinine 0.79 Glucose Level 106 Calcium Level 9.3 Magnesium Level 1.8 Medications Medications Current Medications Ondansetron HCl (Zofran Inj) 4 mg Q6H PRN IV NAUSEA AND/OR VOMITING Last administered on 10/17/17 03:01; Admin Dose 4 MG; Start 10/14/17 at 21:30 Nitroglycerin (Nitroglycerin (Sl Tab) 0.4 Mg) 1 tab Q5M PRN SL CHEST PAIN; Start 10/14/17 at 21:30 Acetaminophen (Tylenol Tab) 650 mg Q6H PRN PO PAIN LEVEL 1-3 OR FEVER Last administered on 10/25/17 11:13; Admin Dose 650 MG; Start 10/14/17 at 21:30 Enoxaparin Sodium (Lovenox) 245 mg Q12 SC Last administered on 10/30/17 21:52 ; Admin Dose 245 MG; Start 10/16/17 at 01:00 Morphine Sulfate (morphine) 2 mg Q4H PRN IV PAIN LEVEL 7-10 Last administered on 10/17/17 01:54; Admin Dose 2 MG; Start 10/16/17 at 00:00 Multi-Ingredient Ointment (Eucerin Cream) 1 applic BID TOP Last administered on 10/31/17 09:22; Admin Dose 1 APPLIC; Start 10/16/17 at 09:00 Triamcinolone Acetonide (Kenalog 0.1% Oint) 1 applic BID TOP Last administered on 10/31/17 09:22; Admin Dose 1 APPLIC; Start 10/16/17 at 14:00 Famotidine 20 mg 20 mg HS GTB Last administered on 10/30/17 21:38; Admin Dose 20 MG; Start 10/17/17 at 21:00 Fentanyl (Sublimaze) 100 ml @ 2.5 mls/hr TITRATE IV Last administered on 10/31 05:55; Admin Dose 10 MLS/HR; Start 10/18/17 at 10:00 Lorazepam (Ativan) 2 mg Q4H PRN IV AGITATION Last administered on 10/24/17 07 :24; Admin Dose 2 MG; Start 10/18/17 at 21:00 Diagnostic Test (Pha) (Accu-Chek) 1 ea 02 XX Last administered on 10/31/17 01 :31; Admin Dose 1 EA; Start 10/20/17 at 02:00 Miscellaneous Information 1 ea NOTE XX ; Start 10/19/17 at 18:00 Glucose (Glutose) 15 gm Q15M PRN PO DECREASED GLUCOSE; Start 10/19/17 at 18:00 Glucose (Glutose) 22.5 gm Q15M PRN PO DECREASED GLUCOSE; Start 10/19/17 at 18: 00 Dextrose (D50w Syringe) 25 ml Q15M PRN IV DECREASED GLUCOSE; Start 10/19/17 at 18:00 Dextrose (D50w Syringe) 50 ml Q15M PRN IV DECREASED GLUCOSE; Start 10/19/17 at 18:00 Glucagon (Glucagen) 1 mg Q15M PRN IM DECREASED GLUCOSE; Start 10/19/17 at 18: 00 Glucose 15 gm 15 gm Q15M PRN BUCCAL DECREASED GLUCOSE; Start 10/19/17 at 18:00 Midazolam HCl (Versed) 50 ml @ 1 mls/hr TITRATE IV Last administered on 04:15; Admin Dose 10 MLS/HR; Start 10/21/17 at 09:30 IV Flush (NS 10 ml) 10 ml PRN PRN IV IV PROTOCOL; Start 10/22/17 at 19:00 Insulin Aspart (Novolog Insulin Pen) NOVOLOG *MILD* ALGORI... Q8 SC ; Start at 22:00 Docusate Sodium (Colace Liquid Cup) 100 mg BID GTB Last administered on 09:22; Admin Dose 100 MG; Start 10/24/17 at 21:00 Polyethylene Glycol 17 gm 17 gm DAILY NGT Last administered on 10/31/17 09:22 ; Admin Dose 17 GM; Start 10/24/17 at 21:00 Vancomycin HCl 1.75 gm/Sodium Chloride 500 ml @ 125 mls/hr Q12H IVPB Last administered on 10/31/17 11:00; Admin Dose 125 MLS/HR; Start 10/27/17 at 22: 00; Stop 10/31/17 at 23:59 Dextrose (D5W) 1,000 ml @ 100 mls/hr Q10H IV Last administered on 10/31/17 12:00; Admin Dose 100 MLS/HR; Start 10/30/17 at 14:00 Lactulose (Enulose) 20 gm Q8 PO Last administered on 10/31/17 05:58; Admin Dose 20 GM; Start 10/30/17 at 14:30 LEXII LADD MD Oct 31, 2017 14:27
[2017-10-31] MEDS: LORAZEPAM 2 MG INJ IV PRN (15:17)
--- NOTE | 2017-10-31 17:08 | PN ---
Date/Time of Note Date/Time of Note DATE: 10/31/17 TIME: 16:58 Assessment/Plan VTE Prophylaxis VTE Prophylaxis Intervention: SCD's Lines/Catheters IV Catheter Type (from Nrs): PICC Line Central line still needed: Yes (Medication) Urinary Cath still in place: Yes Reason Cath still needed: other (indicate) (Monitor output) Assessment/Plan Chief Complaint/Hosp Course Assessment: Respiratory failure secondary to prolonged combined hypoxia and hypercapnia not able to meet criteria to wean off vent- plan for Trach and peg placement Leukocytosis/resolved Hypernatremia Morbid obesity Plan: PEG placement tomorrow Patient family is in agreement with the treatment plan. Patient seen in collaboration with Dr. Joseph Subjective: Course reviewed with nursing staff Patient interviewed and examined All labs, imaging and other results reviewed The patient resting in bed, plan for PEG placement tomorrow, plan for trach placement tomorrow as well. Will continue to monitor- NPO after midnight. Problems: Exam/Review of Systems Vital Signs Vitals Vital Signs Date Time Temp Pulse Resp B/P Pulse Ox O2 Delivery O2 Flow Rate FiO2 10/31/17 15:00 89 18 98 40 10/31/17 13:00 135/76 Mechanical Ventilator 10/31/17 12:00 98.7 Intake and Output 10/30/17 10/30/17 10/31/17 15:00 23:00 07:00 Intake Total 1080 ml 1530 ml 2080 ml Output Total 570 ml 520 ml 385 ml Balance 510 ml 1010 ml 1695 ml Results Result Diagram: 10/31/17 0430 10/31/17 0432 Results 24 hrs Laboratory Tests Test 10/30/17 21:50 10/31/17 04:30 10/31/17 04:32 10/31/17 05:54 Bedside Glucose 101 113 White Blood Count 10.6 Red Blood Count 4.36 L Hemoglobin 10.9 L Hematocrit 36.9 L Mean Corpuscular Volume 84.6 Mean Corpuscular Hemoglobin 25.0 L Mean Corpuscular Hemoglobin Concent 29.5 L Red Cell Distribution Width 17.9 H Platelet Count 400 Mean Platelet Volume 11.3 H Neutrophils % 64.0 Lymphocytes % 20.3 Monocytes % 10.0 Eosinophils % 3.8 Basophils % 0.9 Nucleated Red Blood Cells % 0.0 Neutrophils # 6.8 Lymphocytes # 2.2 Monocytes # 1.1 H Eosinophils # 0.4 Basophils # 0.1 Nucleated Red Blood Cells # 0.0 Sodium Level 151 H Potassium Level 3.5 Chloride Level 109 Carbon Dioxide Level 35 H Anion Gap 11 Blood Urea Nitrogen 14 Creatinine 0.79 Glucose Level 106 Calcium Level 9.3 Magnesium Level 1.8 Test 10/31/17 14:53 Bedside Glucose 90 Medications Medications Current Medications Ondansetron HCl (Zofran Inj) 4 mg Q6H PRN IV NAUSEA AND/OR VOMITING Last administered on 10/17/17 03:01; Admin Dose 4 MG; Start 10/14/17 at 21:30 Nitroglycerin (Nitroglycerin (Sl Tab) 0.4 Mg) 1 tab Q5M PRN SL CHEST PAIN; Start 10/14/17 at 21:30 Acetaminophen (Tylenol Tab) 650 mg Q6H PRN PO PAIN LEVEL 1-3 OR FEVER Last administered on 10/25/17 11:13; Admin Dose 650 MG; Start 10/14/17 at 21:30 Enoxaparin Sodium (Lovenox) 245 mg Q12 SC Last administered on 10/30/17 21:52 ; Admin Dose 245 MG; Start 10/16/17 at 01:00 Morphine Sulfate (morphine) 2 mg Q4H PRN IV PAIN LEVEL 7-10 Last administered on 10/17/17 01:54; Admin Dose 2 MG; Start 10/16/17 at 00:00 Multi-Ingredient Ointment (Eucerin Cream) 1 applic BID TOP Last administered on 10/31/17 09:22; Admin Dose 1 APPLIC; Start 10/16/17 at 09:00 Triamcinolone Acetonide (Kenalog 0.1% Oint) 1 applic BID TOP Last administered on 10/31/17 09:22; Admin Dose 1 APPLIC; Start 10/16/17 at 14:00 Famotidine 20 mg 20 mg HS GTB Last administered on 10/30/17 21:38; Admin Dose 20 MG; Start 10/17/17 at 21:00 Fentanyl (Sublimaze) 100 ml @ 2.5 mls/hr TITRATE IV Last administered on 10/31 16:05; Admin Dose 10 MLS/HR; Start 10/18/17 at 10:00 Lorazepam (Ativan) 2 mg Q4H PRN IV AGITATION Last administered on 10/31/17 15 :17; Admin Dose 2 MG; Start 10/18/17 at 21:00 Diagnostic Test (Pha) (Accu-Chek) 1 ea 02 XX Last administered on 10/31/17 01 :31; Admin Dose 1 EA; Start 10/20/17 at 02:00 Miscellaneous Information 1 ea NOTE XX ; Start 10/19/17 at 18:00 Glucose (Glutose) 15 gm Q15M PRN PO DECREASED GLUCOSE; Start 10/19/17 at 18:00 Glucose (Glutose) 22.5 gm Q15M PRN PO DECREASED GLUCOSE; Start 10/19/17 at 18: 00 Dextrose (D50w Syringe) 25 ml Q15M PRN IV DECREASED GLUCOSE; Start 10/19/17 at 18:00 Dextrose (D50w Syringe) 50 ml Q15M PRN IV DECREASED GLUCOSE; Start 10/19/17 at 18:00 Glucagon (Glucagen) 1 mg Q15M PRN IM DECREASED GLUCOSE; Start 10/19/17 at 18: 00 Glucose 15 gm 15 gm Q15M PRN BUCCAL DECREASED GLUCOSE; Start 10/19/17 at 18:00 Midazolam HCl (Versed) 50 ml @ 1 mls/hr TITRATE IV Last administered on 16:02; Admin Dose 10 MLS/HR; Start 10/21/17 at 09:30 IV Flush (NS 10 ml) 10 ml PRN PRN IV IV PROTOCOL; Start 10/22/17 at 19:00 Insulin Aspart (Novolog Insulin Pen) NOVOLOG *MILD* ALGORI... Q8 SC ; Start at 22:00 Docusate Sodium (Colace Liquid Cup) 100 mg BID GTB Last administered on 09:22; Admin Dose 100 MG; Start 10/24/17 at 21:00 Polyethylene Glycol 17 gm 17 gm DAILY NGT Last administered on 10/31/17 09:22 ; Admin Dose 17 GM; Start 10/24/17 at 21:00 Vancomycin HCl 1.75 gm/Sodium Chloride 500 ml @ 125 mls/hr Q12H IVPB Last administered on 10/31/17 11:00; Admin Dose 125 MLS/HR; Start 10/27/17 at 22: 00; Stop 10/31/17 at 23:59 Dextrose (D5W) 1,000 ml @ 100 mls/hr Q10H IV Last administered on 10/31/17 12:00; Admin Dose 100 MLS/HR; Start 10/30/17 at 14:00 Lactulose (Enulose) 20 gm Q8 PO Last administered on 10/31/17 14:56; Admin Dose 20 GM; Start 10/30/17 at 14:30 VIJAYA CONCEPCION Oct 31, 2017 17:08
[2017-10-31] MEDS ORDERED: CEFAZOLIN 2 GM/50 ML (PMX) 50 ML IVPB ONE (17:30)
--- NOTE | 2017-10-31 18:28 | PN ---
Date/Time of Note Date/Time of Note DATE: 10/31/17 TIME: 18:27 Assessment/Plan Lines/Catheters IV Catheter Type (from Nrsg): PICC Line Fierro in Place (from Nrsg): Yes Assessment/Plan Chief Complaint/Hosp Course IMPRESSION: Respiratory failure. RECOMMENDATIONS: We will proceed with placement of a tracheostomy. on Saturday We will discuss with the referring physicians. Problems: Subjective 24 Hr Interval Summary Constitutional: improved Pain Control: mild Exam/Review of Systems Vital Signs Vitals Vital Signs Date Time Temp Pulse Resp B/P Pulse Ox O2 Delivery O2 Flow Rate FiO2 10/31/17 17:50 89 18 94 30 10/31/17 17:00 123/75 Mechanical Ventilator 10/31/17 16:00 98.0 Intake and Output 10/30/17 10/30/17 10/31/17 15:00 23:00 07:00 Intake Total 1080 ml 1530 ml 2200 ml Output Total 570 ml 520 ml 385 ml Balance 510 ml 1010 ml 1815 ml Exam ENMT: mucosa pink and moist, nl external ears & nose, nl lips & teeth, nl nasal mucosa & septum Neck: non-tender, supple Respiratory: clear to auscultation, normal air movement Cardiovascular: nl pulses, regular rate and rhythm Results Result Diagram: 10/31/17 0430 10/31/17 0432 DRISS JIMENEZ MD Oct 31, 2017 18:28
--- NOTE | 2017-10-31 18:32 | PN ---
Date/Time of Note Date/Time of Note DATE: 10/31/17 TIME: 18:32 Assessment/Plan Lines/Catheters IV Catheter Type (from Nrsg): PICC Line Fierro in Place (from Nrsg): Yes Assessment/Plan Chief Complaint/Hosp Course IMPRESSION: Respiratory failure. RECOMMENDATIONS: We will proceed with placement of a tracheostomy. on Saturday We will discuss with the referring physicians. Problems: Subjective 24 Hr Interval Summary Constitutional: improved Pain Control: mild Exam/Review of Systems Vital Signs Vitals Vital Signs Date Time Temp Pulse Resp B/P Pulse Ox O2 Delivery O2 Flow Rate FiO2 10/31/17 17:50 89 18 94 30 10/31/17 17:00 123/75 Mechanical Ventilator 10/31/17 16:00 98.0 Intake and Output 10/30/17 10/30/17 10/31/17 15:00 23:00 07:00 Intake Total 1080 ml 1530 ml 2200 ml Output Total 570 ml 520 ml 385 ml Balance 510 ml 1010 ml 1815 ml Exam Eyes: EOMI, nl conjunctiva, nl lids, nl sclera ENMT: mucosa pink and moist, nl external ears & nose, nl lips & teeth, nl nasal mucosa & septum Neck: non-tender, supple Respiratory: clear to auscultation, normal air movement Cardiovascular: nl pulses, regular rate and rhythm Results Result Diagram: 10/31/170 10/31/17 0432 DRISS JIMENEZ MD Oct 31, 2017 18:32
[2017-10-31] MEDS: FAMOTIDINE 20 MG TAB GTB SCH (20:44)
[2017-11-01] VITALS (43 sets, daily range): BP systolic 125–164; BP diastolic 70–103; PULSE 71–95; RESP 10–33
[2017-11-01] MEDS: ACCU-CHEK XX SCH (00:20)
[2017-11-01] MEDS: MIDAZOLAM (DRIP) 50 mg/50 mL 50 ML IV SCH ×5 (02:10→22:03)
[2017-11-01] MEDS: FENTAnyl (DRIP) 1000 mcg/100mL 100 ML IV SCH ×3 (02:10→20:47)
[2017-11-01 05:31] LABS: ABNORMAL IP MESSAGE 1; BASOPHIL # 0.1 10^3/ul (0.0-0.1); BASOPHILS % 0.9 % (0.0-2.0); EOSINOPHILS # 0.3 10^3/ul (0.0-0.5); EOSINOPHILS % 3.7 % (0.0-7.0); HEMATOCRIT 35.4 % (42.0-52.0); HEMOGLOBIN 10.2 g/dl (14.0-18.0); LYMPHOCYTES # 2.2 10^3/ul (0.8-2.9); LYMPHOCYTES % 25.6 % (15.0-51.0); MEAN CORPUSCULAR HEMOGLOBIN 24.7 pg (29.0-33.0); MEAN CORPUSCULAR HGB CONC 28.8 g/dl (32.0-37.0); MEAN CORPUSCULAR VOLUME 85.7 fl (82.0-101.0); MEAN PLATELET VOLUME 11.3 fl (7.4-10.4); MONOCYTE # 0.9 10^3/ul (0.3-0.9); MONOCYTES % 10.6 % (0.0-11.0); NEUTROPHIL # 4.9 10^3/ul (1.6-7.5); PLATELET COUNT 437 10^3/UL (140-415); POSITIVE DIFF @See below; RED BLOOD COUNT 4.13 10^6/ul (4.70-6.10); RED CELL DISTRIBUTION WIDTH 17.5 % (11.5-14.5); WHITE BLOOD COUNT 8.4 10^3/ul (4.8-10.8)
[2017-11-01] MEDS: LACTULOSE 30ML CUP PO SCH ×3 (05:32→21:39)
[2017-11-01] MEDS: INSULIN ASPART [NOVOLOG] 3 ML PEN SC SCH ×3 (05:37→21:40)
[2017-11-01] MEDS: DEXTROSE 5% 1,000 ML IV SCH (05:38)
[2017-11-01 05:47] LABS: CALCIUM 9.1 mg/dl (8.4-10.2); CREATININE 0.77 mg/dl (0.61-1.24); POTASSIUM 3.3 mmol/L (3.5-5.1)
--- NOTE | 2017-11-01 06:47 | CONS ---
Date/Time of Note Date/Time of Note DATE: 11/01/17 TIME: 06:47 Assessment/Plan Assessment/Plan Additional Assessment/Plan Patient remains in the intensive care unit intubated and is failed CPAP trial yesterday. I am waiting for a conference to be scheduled with patient's significant other for discussion of goals of care. Consultation Date/Type/Reason Admit Date/Time Oct 14, 2017 at 20:55 Initial Consult Date 10/30/17 Type of Consultation: Pulmonary Exam/Review of Systems Vital Signs Vitals Vital Signs Date Time Temp Pulse Resp B/P Pulse Ox O2 Delivery O2 Flow Rate FiO2 11/01/17 05:46 72 18 96 40 11/01/17 05:00 132/82 Mechanical Ventilator 11/01/17 04:00 98.3 Intake and Output 10/31/17 10/31/17 11/01/17 15:00 23:00 07:00 Intake Total 1780 ml 2020 ml 1260 ml Output Total 400 ml 475 ml 75 ml Balance 1380 ml 1545 ml 1185 ml Results Result Diagram: 11/01/17 0500 11/01/17 0500 Results 24 hrs Laboratory Tests Test 10/31/17 14:53 10/31/17 21:16 11/01/17 05:00 11/01/17 05:36 Bedside Glucose 90 103 91 White Blood Count 8.4 # Red Blood Count 4.13 L Hemoglobin 10.2 L Hematocrit 35.4 L Mean Corpuscular Volume 85.7 Mean Corpuscular Hemoglobin 24.7 L Mean Corpuscular Hemoglobin Concent 28.8 L Red Cell Distribution Width 17.5 H Platelet Count 437 H Mean Platelet Volume 11.3 H Neutrophils % 58.0 Lymphocytes % 25.6 Monocytes % 10.6 Eosinophils % 3.7 Basophils % 0.9 Nucleated Red Blood Cells % 0.0 Neutrophils # 4.9 Lymphocytes # 2.2 Monocytes # 0.9 Eosinophils # 0.3 Basophils # 0.1 Nucleated Red Blood Cells # 0.0 Sodium Level 147 H Potassium Level 3.3 L Chloride Level 106 Carbon Dioxide Level 34 H Anion Gap 10 Blood Urea Nitrogen 11 Creatinine 0.77 Glucose Level 96 Calcium Level 9.1 Medications Medications Current Medications Ondansetron HCl (Zofran Inj) 4 mg Q6H PRN IV NAUSEA AND/OR VOMITING Last administered on 10/17/17t 03:01; Admin Dose 4 MG; Start 10/14/17 at 21:30 Nitroglycerin (Nitroglycerin (Sl Tab) 0.4 Mg) 1 tab Q5M PRN SL CHEST PAIN; Start 10/14/17 at 21:30 Acetaminophen (Tylenol Tab) 650 mg Q6H PRN PO PAIN LEVEL 1-3 OR FEVER Last administered on 10/25/17 11:13; Admin Dose 650 MG; Start 10/14/17 at 21:30 Enoxaparin Sodium (Lovenox) 245 mg Q12 SC Last administered on 10/31/17 21:00 ; Admin Dose 245 MG; Start 10/16/17 at 01:00 Morphine Sulfate (morphine) 2 mg Q4H PRN IV PAIN LEVEL 7-10 Last administered on 10/17/17 01:54; Admin Dose 2 MG; Start 10/16/17 at 00:00 Multi-Ingredient Ointment (Eucerin Cream) 1 applic BID TOP Last administered on 10/31/17 20:47; Admin Dose 1 APPLIC; Start 10/16/17 at 09:00 Triamcinolone Acetonide (Kenalog 0.1% Oint) 1 applic BID TOP Last administered on 10/31/17 20:46; Admin Dose 1 APPLIC; Start 10/16/17 at 14:00 Famotidine 20 mg 20 mg HS GTB Last administered on 10/31/17 20:44; Admin Dose 20 MG; Start 10/17/17 at 21:00 Fentanyl (Sublimaze) 100 ml @ 2.5 mls/hr TITRATE IV Last administered on 02:10; Admin Dose 10 MLS/HR; Start 10/18/17 at 10:00 Lorazepam (Ativan) 2 mg Q4H PRN IV AGITATION Last administered on 10/31/17 15 :17; Admin Dose 2 MG; Start 10/18/17 at 21:00 Diagnostic Test (Pha) (Accu-Chek) 1 ea 02 XX Last administered on 10/31/17 01 :31; Admin Dose 1 EA; Start 10/20/17 at 02:00 Miscellaneous Information 1 ea NOTE XX ; Start 10/19/17 at 18:00 Glucose (Glutose) 15 gm Q15M PRN PO DECREASED GLUCOSE; Start 10/19/17 at 18:00 Glucose (Glutose) 22.5 gm Q15M PRN PO DECREASED GLUCOSE; Start 10/19/17 at 18: 00 Dextrose (D50w Syringe) 25 ml Q15M PRN IV DECREASED GLUCOSE; Start 10/19/17 at 18:00 Dextrose (D50w Syringe) 50 ml Q15M PRN IV DECREASED GLUCOSE; Start 10/19/17 at 18:00 Glucagon (Glucagen) 1 mg Q15M PRN IM DECREASED GLUCOSE; Start 10/19/17 at 18: 00 Glucose 15 gm 15 gm Q15M PRN BUCCAL DECREASED GLUCOSE; Start 10/19/17 at 18:00 Midazolam HCl (Versed) 50 ml @ 1 mls/hr TITRATE IV Last administered on 02:10; Admin Dose 10 MLS/HR; Start 10/21/17 at 09:30 IV Flush (NS 10 ml) 10 ml PRN PRN IV IV PROTOCOL; Start 10/22/17 at 19:00 Insulin Aspart (Novolog Insulin Pen) NOVOLOG *MILD* ALGORI... Q8 SC ; Start at 22:00 Docusate Sodium (Colace Liquid Cup) 100 mg BID GTB Last administered on 20:44; Admin Dose 100 MG; Start 10/24/17 at 21:00 Polyethylene Glycol 17 gm 17 gm DAILY NGT Last administered on 10/31/17 09:22 ; Admin Dose 17 GM; Start 10/24/17 at 21:00 Dextrose (D5W) 1,000 ml @ 100 mls/hr Q10H IV Last administered on 11/01/17 05 :38; Admin Dose 100 MLS/HR; Start 10/30/17 at 14:00 Lactulose (Enulose) 20 gm Q8 PO Last administered on 10/31/17 21:18; Admin Dose 20 GM; Start 10/30/17 at 14:30 JACK FONTENOT Nov 01, 2017 06:47
[2017-11-01] MEDS: DOCUSATE SODIUM 10 MG/ML (10ML CUP) GTB SCH ×2 (09:00→20:41)
[2017-11-01] MEDS: ENOXAPARIN 100 MG/ML SYG SC SCH ×2 (09:00→20:20)
[2017-11-01] MEDS: POLYETHYLENE GLYCOL 17 GM PACKET NGT SCH (09:00)
[2017-11-01] MEDS: EUCERIN 113 GM CR TOP SCH ×2 (09:49→20:21)
[2017-11-01] MEDS: TRIAMCINOLONE ACET 0.1% 15 GM OINT TOP SCH ×2 (09:49→20:21)
--- NOTE | 2017-11-01 10:43 | CONS ---
Date/Time of Note Date/Time of Note DATE: 11/01/17 TIME: 10:41 Assessment/Plan Assessment/Plan Additional Assessment/Plan Ventilator setting; AC of 18, tidal volume 550, PEEP of 5, 40% FiO2. Patient is currently on Versed 10 mg/h, fentanyl 100 mics per hour. Assessment and recommendations; 1. Patient with morbid obesity admitted for hypercapnic respiratory failure from underlying obesity/hypoventilation syndrome. 2. Difficult to rule out chronic thromboembolic disease. 3. Failure to be weaned from invasive mechanical ventilation. 4. Diastolic dysfunction with pulmonary edema. Continue current treatment. Patient will need to have a tracheostomy performed. Consent is awaited from the family. Consultation Date/Type/Reason Admit Date/Time Oct 14, 2017 at 20:55 Type of Consultation: Pulmonary 24 HR Interval Summary Free Text/Dictation Patient's condition remains critical. Still requiring full invasive mechanical ventilation. Patient however has remained hemodynamically stable. General exam; middle-aged male, morbidly obese, orally intubated, sedated, currently in no distress. Exam/Review of Systems Vital Signs Vitals Vital Signs Date Time Temp Pulse Resp B/P Pulse Ox O2 Delivery O2 Flow Rate FiO2 11/01/17 09:00 91 33 164/99 96 Mechanical Ventilator 11/01/17 08:00 98.1 11/01/17 08:00 40 Intake and Output 10/31/17 10/31/17 11/01/17 15:00 23:00 07:00 Intake Total 1780 ml 2020 ml 1380 ml Output Total 400 ml 475 ml 460 ml Balance 1380 ml 1545 ml 920 ml Exam HEENT exam; supple neck, JVD difficult to see because of short neck. Pupils are small bilaterally. Patient is orally intubated. Chest exam; diminished breath sounds throughout. S1-S2 audible, no murmurs. Regular rhythm. Abdomen exam; grossly protuberant. Organomegaly difficult to assess. Bowel sounds audible. Extremity exam; chronic appearing lower extremity skin changes. With trace edema. [employer] exam; patient is sedated. Results Result Diagram: 11/01/17 0500 11/01/17 0500 Results 24 hrs Laboratory Tests Test 10/31/17 14:53 10/31/17 21:16 11/01/17 05:00 11/01/17 05:36 Bedside Glucose 90 103 91 White Blood Count 8.4 # Red Blood Count 4.13 L Hemoglobin 10.2 L Hematocrit 35.4 L Mean Corpuscular Volume 85.7 Mean Corpuscular Hemoglobin 24.7 L Mean Corpuscular Hemoglobin Concent 28.8 L Red Cell Distribution Width 17.5 H Platelet Count 437 H Mean Platelet Volume 11.3 H Neutrophils % 58.0 Lymphocytes % 25.6 Monocytes % 10.6 Eosinophils % 3.7 Basophils % 0.9 Nucleated Red Blood Cells % 0.0 Neutrophils # 4.9 Lymphocytes # 2.2 Monocytes # 0.9 Eosinophils # 0.3 Basophils # 0.1 Nucleated Red Blood Cells # 0.0 Sodium Level 147 H Potassium Level 3.3 L Chloride Level 106 Carbon Dioxide Level 34 H Anion Gap 10 Blood Urea Nitrogen 11 Creatinine 0.77 Glucose Level 96 Calcium Level 9.1 Medications Medications Current Medications Ondansetron HCl (Zofran Inj) 4 mg Q6H PRN IV NAUSEA AND/OR VOMITING Last administered on 10/17/17 03:01; Admin Dose 4 MG; Start 10/14/17 at 21:30 Nitroglycerin (Nitroglycerin (Sl Tab) 0.4 Mg) 1 tab Q5M PRN SL CHEST PAIN; Start 10/14/17 at 21:30 Acetaminophen (Tylenol Tab) 650 mg Q6H PRN PO PAIN LEVEL 1-3 OR FEVER Last administered on 10/25/17 11:13; Admin Dose 650 MG; Start 10/14/17 at 21:30 Enoxaparin Sodium (Lovenox) 245 mg Q12 SC Last administered on 10/31/17 21:00 ; Admin Dose 245 MG; Start 10/16/17 at 01:00 Morphine Sulfate (morphine) 2 mg Q4H PRN IV PAIN LEVEL 7-10 Last administered on 10/17/17 01:54; Admin Dose 2 MG; Start 10/16/17 at 00:00 Multi-Ingredient Ointment (Eucerin Cream) 1 applic BID TOP Last administered on 11/01/17 09:49; Admin Dose 1 APPLIC; Start 10/16/17 at 09:00 Triamcinolone Acetonide (Kenalog 0.1% Oint) 1 applic BID TOP Last administered on 11/01/17 09:49; Admin Dose 1 APPLIC; Start 10/16/17 at 14:00 Famotidine 20 mg 20 mg HS GTB Last administered on 10/31/17 20:44; Admin Dose 20 MG; Start 10/17/17 at 21:00 Fentanyl (Sublimaze) 100 ml @ 2.5 mls/hr TITRATE IV Last administered on 02:10; Admin Dose 10 MLS/HR; Start 10/18/17 at 10:00 Lorazepam (Ativan) 2 mg Q4H PRN IV AGITATION Last administered on 10/31/17 15 :17; Admin Dose 2 MG; Start 10/18/17 at 21:00 Diagnostic Test (Pha) (Accu-Chek) 1 ea 02 XX Last administered on 10/31/17 01 :31; Admin Dose 1 EA; Start 10/20/17 at 02:00 Miscellaneous Information 1 ea NOTE XX ; Start 10/19/17 at 18:00 Glucose (Glutose) 15 gm Q15M PRN PO DECREASED GLUCOSE; Start 10/19/17 at 18:00 Glucose (Glutose) 22.5 gm Q15M PRN PO DECREASED GLUCOSE; Start 10/19/17 at 18: 00 Dextrose (D50w Syringe) 25 ml Q15M PRN IV DECREASED GLUCOSE; Start 10/19/17 at 18:00 Dextrose (D50w Syringe) 50 ml Q15M PRN IV DECREASED GLUCOSE; Start 10/19/17 at 18:00 Glucagon (Glucagen) 1 mg Q15M PRN IM DECREASED GLUCOSE; Start 10/19/17 at 18: 00 Glucose 15 gm 15 gm Q15M PRN BUCCAL DECREASED GLUCOSE; Start 10/19/17 at 18:00 Midazolam HCl (Versed) 50 ml @ 1 mls/hr TITRATE IV Last administered on 08:17; Admin Dose 10 MLS/HR; Start 10/21/17 at 09:30 IV Flush (NS 10 ml) 10 ml PRN PRN IV IV PROTOCOL; Start 10/22/17 at 19:00 Insulin Aspart (Novolog Insulin Pen) NOVOLOG *MILD* ALGORI... Q8 SC ; Start at 22:00 Docusate Sodium (Colace Liquid Cup) 100 mg BID GTB Last administered on 20:44; Admin Dose 100 MG; Start 10/24/17 at 21:00 Polyethylene Glycol 17 gm 17 gm DAILY NGT Last administered on 10/31/17 09:22 ; Admin Dose 17 GM; Start 10/24/17 at 21:00 Dextrose (D5W) 1,000 ml @ 100 mls/hr Q10H IV Last administered on 11/01/17 05 :38; Admin Dose 100 MLS/HR; Start 10/30/17 at 14:00 Lactulose (Enulose) 20 gm Q8 PO Last administered on 10/31/17 21:18; Admin Dose 20 GM; Start 10/30/17 at 14:30 GABRIEL MALDONADO Nov 01, 2017 10:43
--- NOTE | 2017-11-01 11:20 | CONS ---
Date/Time of Note Date/Time of Note DATE: 11/01/17 TIME: Assessment/Plan Assessment/Plan Additional Assessment/Plan Massive obesity Respiratory failure Shock Sleep apnea Altered mental status Recommendations per above in history and physical. Consultation Date/Type/Reason Admit Date/Time Oct 14, 2017 at 20:55 Hx of Present Illness Palliative care consultation patient by the name of Joseph Mathews who is a 47- year-old gentleman was admitted to intensive care unit [facility] increasing respiratory distress required intubation, septic hemodynamically compromised with a history of sleep apnea on CPAP at home is noncompliant. Unforeseen patient is morbidly obese with a BMI greater than 80 I am asked to speak to family members about ongoing level of care and overall prognosis. He had a prior brief conversation with patient's significant other she is a voice and spokesperson for patient only significant background history patient is morbidly obese does not take compliant with his medical regimens which in all likelihood precipitated this admission. She has a clear understanding how seriously ill he is grossly desires that he would recover from this episode and trying to take better care of himself acceptable quality of life would be that patient might require prolonged ventilator support and continue to improve. Her fears concerns strengths desires spirituality was discussed briefly medications preferences 1 1 prognosis poor if he survives his hospitalization related performance scale 10% or patient is in the intensive care unit and continues to be moribund.. I will have ongoing discussions with the significant other during his hospitalization and outpatient remains critically ill in the ICU all probability require tracheostomy. Palliative care Past Medical History Medical History: congestive heart failure, diabetes Past Surgical History Past Surgical Hx: no surgical history Social History Alcohol Use: none Smoking Status: Former smoker Drug Use: marijuana Exam/Review of Systems Vital Signs Vitals Vital Signs Date Time Temp Pulse Resp B/P Pulse Ox O2 Delivery O2 Flow Rate FiO2 11/01/17 09:00 91 33 164/99 96 Mechanical Ventilator 11/01/17 08:00 98.1 11/01/17 08:00 40 Intake and Output 10/31/17 10/31/17 11/01/17 15:00 23:00 07:00 Intake Total 1780 ml 2020 ml 1380 ml Output Total 400 ml 475 ml 460 ml Balance 1380 ml 1545 ml 920 ml Exam Constitutional: other Psych: anxiety Respiratory: congested cough, crackles/rales, diminished breath sounds Cardiovascular: nl pulses, regular rate and rhythm Gastrointestinal: nl liver, spleen, non-tender, soft Extremities: normal pulses Results Result Diagram: 11/01/17 0500 11/01/17 0500 Results 24 hrs Laboratory Tests Test 10/31/17 14:53 10/31/17 21:16 11/01/17 05:00 11/01/17 05:36 Bedside Glucose 90 103 91 White Blood Count 8.4 # Red Blood Count 4.13 L Hemoglobin 10.2 L Hematocrit 35.4 L Mean Corpuscular Volume 85.7 Mean Corpuscular Hemoglobin 24.7 L Mean Corpuscular Hemoglobin Concent 28.8 L Red Cell Distribution Width 17.5 H Platelet Count 437 H Mean Platelet Volume 11.3 H Neutrophils % 58.0 Lymphocytes % 25.6 Monocytes % 10.6 Eosinophils % 3.7 Basophils % 0.9 Nucleated Red Blood Cells % 0.0 Neutrophils # 4.9 Lymphocytes # 2.2 Monocytes # 0.9 Eosinophils # 0.3 Basophils # 0.1 Nucleated Red Blood Cells # 0.0 Sodium Level 147 H Potassium Level 3.3 L Chloride Level 106 Carbon Dioxide Level 34 H Anion Gap 10 Blood Urea Nitrogen 11 Creatinine 0.77 Glucose Level 96 Calcium Level 9.1 Medications Medications Current Medications Ondansetron HCl (Zofran Inj) 4 mg Q6H PRN IV NAUSEA AND/OR VOMITING Last administered on 10/17/17 03:01; Admin Dose 4 MG; Start 10/14/17 at 21:30 Nitroglycerin (Nitroglycerin (Sl Tab) 0.4 Mg) 1 tab Q5M PRN SL CHEST PAIN; Start 10/14/17 at 21:30 Acetaminophen (Tylenol Tab) 650 mg Q6H PRN PO PAIN LEVEL 1-3 OR FEVER Last administered on 10/25/17 11:13; Admin Dose 650 MG; Start 10/14/17 at 21:30 Enoxaparin Sodium (Lovenox) 245 mg Q12 SC Last administered on 10/31/17 21:00 ; Admin Dose 245 MG; Start 10/16/17 at 01:00 Morphine Sulfate (morphine) 2 mg Q4H PRN IV PAIN LEVEL 7-10 Last administered on 10/17/17 01:54; Admin Dose 2 MG; Start 10/16/17 at 00:00 Multi-Ingredient Ointment (Eucerin Cream) 1 applic BID TOP Last administered on 11/01/17 09:49; Admin Dose 1 APPLIC; Start 10/16/17 at 09:00 Triamcinolone Acetonide (Kenalog 0.1% Oint) 1 applic BID TOP Last administered on 11/01/17 09:49; Admin Dose 1 APPLIC; Start 10/16/17 at 14:00 Famotidine 20 mg 20 mg HS GTB Last administered on 10/31/17 20:44; Admin Dose 20 MG; Start 10/17/17 at 21:00 Fentanyl (Sublimaze) 100 ml @ 2.5 mls/hr TITRATE IV Last administered on 02:10; Admin Dose 10 MLS/HR; Start 10/18/17 at 10:00 Lorazepam (Ativan) 2 mg Q4H PRN IV AGITATION Last administered on 10/31/17 15 :17; Admin Dose 2 MG; Start 10/18/17 at 21:00 Diagnostic Test (Pha) (Accu-Chek) 1 ea 02 XX Last administered on 10/31/17 01 :31; Admin Dose 1 EA; Start 10/20/17 at 02:00 Miscellaneous Information 1 ea NOTE XX ; Start 10/19/17 at 18:00 Glucose (Glutose) 15 gm Q15M PRN PO DECREASED GLUCOSE; Start 10/19/17 at 18:00 Glucose (Glutose) 22.5 gm Q15M PRN PO DECREASED GLUCOSE; Start 10/19/17 at 18: 00 Dextrose (D50w Syringe) 25 ml Q15M PRN IV DECREASED GLUCOSE; Start 10/19/17 at 18:00 Dextrose (D50w Syringe) 50 ml Q15M PRN IV DECREASED GLUCOSE; Start 10/19/17 at 18:00 Glucagon (Glucagen) 1 mg Q15M PRN IM DECREASED GLUCOSE; Start 10/19/17 at 18: 00 Glucose 15 gm 15 gm Q15M PRN BUCCAL DECREASED GLUCOSE; Start 10/19/17 at 18:00 Midazolam HCl (Versed) 50 ml @ 1 mls/hr TITRATE IV Last administered on 10:45; Admin Dose 10 MLS/HR; Start 10/21/17 at 09:30 IV Flush (NS 10 ml) 10 ml PRN PRN IV IV PROTOCOL; Start 10/22/17 at 19:00 Insulin Aspart (Novolog Insulin Pen) NOVOLOG *MILD* ALGORI... Q8 SC ; Start at 22:00 Docusate Sodium (Colace Liquid Cup) 100 mg BID GTB Last administered on 20:44; Admin Dose 100 MG; Start 10/24/17 at 21:00 Polyethylene Glycol 17 gm 17 gm DAILY NGT Last administered on 10/31/17 09:22 ; Admin Dose 17 GM; Start 10/24/17 at 21:00 Dextrose (D5W) 1,000 ml @ 100 mls/hr Q10H IV Last administered on 11/01/17 05 :38; Admin Dose 100 MLS/HR; Start 10/30/17 at 14:00 Lactulose (Enulose) 20 gm Q8 PO Last administered on 10/31/17 21:18; Admin Dose 20 GM; Start 10/30/17 at 14:30 JACK FONTENOT Nov 01, 2017 11:20
--- NOTE | 2017-11-01 13:01 | PN ---
Date/Time of Note Date/Time of Note DATE: 11/01/17 TIME: 12:58 Assessment/Plan VTE Prophylaxis VTE Prophylaxis Intervention: SCD's Lines/Catheters IV Catheter Type (from Nrs): PICC Line Central line still needed: No Urinary Cath still in place: Yes Reason Cath still needed: other (indicate) (critically ill) Assessment/Plan Assessment/Plan 47 yo M with super morbid obesity, DM presented to SOB intubated for airway protection in setting of CO2 narcosis and pulmonary edema. #fevers, leukocytosis RESOLVED: etio unclear. Lung imaging without alysa infiltrate, though resp culture with MSSA, urine with MSSA and enterococcus narrowed abx to Ancef, anticipate 7 days of therapy for ?VAP (would also cover for CAUTI v colonization) from 11.24-11.30 #prolonged combined hypoxic and hypercapnic respiratory failure -per pulm, pt remains intubated as not able to achieve weaning parameters--> surgical consults placed for PEG/trach. procedures pending (today?) #possible PE? -cont therapeutic LMWH. consider warfarin after PEG/trach are complete #hypernatremia; improving stop IVFs critical care time:30 minutes Subjective 24 Hr Interval Summary Free Text/Dictation clinical status unchanged Exam/Review of Systems Vital Signs Vitals Vital Signs Date Time Temp Pulse Resp B/P Pulse Ox O2 Delivery O2 Flow Rate FiO2 11/01/17 11:40 87 20 96 40 11/01/17 11:00 150/93 Mechanical Ventilator 11/01/17 08:00 98.1 Intake and Output 10/31/17 10/31/17 11/01/17 14:59 22:59 06:59 Intake Total 1780 ml 1895 ml 1665 ml Output Total 400 ml 450 ml 475 ml Balance 1380 ml 1445 ml 1190 ml Exam intubated and sedated no mrg lungs clear anteriorly abd obese LEs unchanged Results Result Diagram: 11/01/17 0500 11/01/17 0500 Results 24 hrs Laboratory Tests Test 10/31/17 14:53 10/31/17 21:16 11/01/17 05:00 11/01/17 05:36 Bedside Glucose 90 103 91 White Blood Count 8.4 # Red Blood Count 4.13 L Hemoglobin 10.2 L Hematocrit 35.4 L Mean Corpuscular Volume 85.7 Mean Corpuscular Hemoglobin 24.7 L Mean Corpuscular Hemoglobin Concent 28.8 L Red Cell Distribution Width 17.5 H Platelet Count 437 H Mean Platelet Volume 11.3 H Neutrophils % 58.0 Lymphocytes % 25.6 Monocytes % 10.6 Eosinophils % 3.7 Basophils % 0.9 Nucleated Red Blood Cells % 0.0 Neutrophils # 4.9 Lymphocytes # 2.2 Monocytes # 0.9 Eosinophils # 0.3 Basophils # 0.1 Nucleated Red Blood Cells # 0.0 Sodium Level 147 H Potassium Level 3.3 L Chloride Level 106 Carbon Dioxide Level 34 H Anion Gap 10 Blood Urea Nitrogen 11 Creatinine 0.77 Glucose Level 96 Calcium Level 9.1 Medications Medications Current Medications Ondansetron HCl (Zofran Inj) 4 mg Q6H PRN IV NAUSEA AND/OR VOMITING Last administered on 10/17/17 03:01; Admin Dose 4 MG; Start 10/14/17 at 21:30 Nitroglycerin (Nitroglycerin (Sl Tab) 0.4 Mg) 1 tab Q5M PRN SL CHEST PAIN; Start 10/14/17 at 21:30 Acetaminophen (Tylenol Tab) 650 mg Q6H PRN PO PAIN LEVEL 1-3 OR FEVER Last administered on 10/25/17 11:13; Admin Dose 650 MG; Start 10/14/17 at 21:30 Enoxaparin Sodium (Lovenox) 245 mg Q12 SC Last administered on 10/31/17 21:00 ; Admin Dose 245 MG; Start 10/16/17 at 01:00 Morphine Sulfate (morphine) 2 mg Q4H PRN IV PAIN LEVEL 7-10 Last administered on 10/17/17 01:54; Admin Dose 2 MG; Start 10/16/17 at 00:00 Multi-Ingredient Ointment (Eucerin Cream) 1 applic BID TOP Last administered on 11/01/17 09:49; Admin Dose 1 APPLIC; Start 10/16/17 at 09:00 Triamcinolone Acetonide (Kenalog 0.1% Oint) 1 applic BID TOP Last administered on 11/01/17 09:49; Admin Dose 1 APPLIC; Start 10/16/17 at 14:00 Famotidine 20 mg 20 mg HS GTB Last administered on 10/31/17 20:44; Admin Dose 20 MG; Start 10/17/17 at 21:00 Fentanyl (Sublimaze) 100 ml @ 2.5 mls/hr TITRATE IV Last administered on 12:36; Admin Dose 10 MLS/HR; Start 10/18/17 at 10:00 Lorazepam (Ativan) 2 mg Q4H PRN IV AGITATION Last administered on 10/31/17 15 :17; Admin Dose 2 MG; Start 10/18/17 at 21:00 Diagnostic Test (Pha) (Accu-Chek) 1 ea 02 XX Last administered on 10/31/17 01 :31; Admin Dose 1 EA; Start 10/20/17 at 02:00 Miscellaneous Information 1 ea NOTE XX ; Start 10/19/17 at 18:00 Glucose (Glutose) 15 gm Q15M PRN PO DECREASED GLUCOSE; Start 10/19/17 at 18:00 Glucose (Glutose) 22.5 gm Q15M PRN PO DECREASED GLUCOSE; Start 10/19/17 at 18: 00 Dextrose (D50w Syringe) 25 ml Q15M PRN IV DECREASED GLUCOSE; Start 10/19/17 at 18:00 Dextrose (D50w Syringe) 50 ml Q15M PRN IV DECREASED GLUCOSE; Start 10/19/17 at 18:00 Glucagon (Glucagen) 1 mg Q15M PRN IM DECREASED GLUCOSE; Start 10/19/17 at 18: 00 Glucose 15 gm 15 gm Q15M PRN BUCCAL DECREASED GLUCOSE; Start 10/19/17 at 18:00 Midazolam HCl (Versed) 50 ml @ 1 mls/hr TITRATE IV Last administered on 10:45; Admin Dose 10 MLS/HR; Start 10/21/17 at 09:30 IV Flush (NS 10 ml) 10 ml PRN PRN IV IV PROTOCOL; Start 10/22/17 at 19:00 Insulin Aspart (Novolog Insulin Pen) NOVOLOG *MILD* ALGORI... Q8 SC ; Start at 22:00 Docusate Sodium (Colace Liquid Cup) 100 mg BID GTB Last administered on 20:44; Admin Dose 100 MG; Start 10/24/17 at 21:00 Polyethylene Glycol 17 gm 17 gm DAILY NGT Last administered on 10/31/17 09:22 ; Admin Dose 17 GM; Start 11/23/17 at 21:00 Dextrose (D5W) 1,000 ml @ 100 mls/hr Q10H IV Last administered on 11/01/17 05 :38; Admin Dose 100 MLS/HR; Start 10/30/17 at 14:00 Lactulose (Enulose) 20 gm Q8 PO Last administered on 10/31/17 21:18; Admin Dose 20 GM; Start 10/30/17 at 14:30 LEXII LADD MD Nov 01, 2017 13:01
[2017-11-01] MEDS ORDERED: POTASSIUM CHLORIDE 30 MEQ in DEXTROSE 5% 250 ML IVPB ONE (15:00)
[2017-11-01] MEDS ORDERED: FENTAnyl 50 MCG/ML VIAL ONE (19:15)
[2017-11-01] MEDS ORDERED: MIDAZOLAM 1 MG/ML 2 ML INJ ONE (19:15)
[2017-11-01] MEDS ORDERED: CEFAZOLIN 1 GM/50 ML (PMX) 50 ML IVPB ONE (19:33)
[2017-11-01] MEDS ORDERED: CEFAZOLIN 1 GM/50 ML (PMX) 100 ML IVPB ONE (19:34)
[2017-11-01] MEDS ORDERED: CEFAZOLIN 1 GM/50 ML (PMX) 50 ML IVPB SCH (19:50)
[2017-11-01] MEDS ORDERED: CEFAZOLIN 1 GM/50 ML (PMX) 50 ML IVPB STA ×3 (19:54)
[2017-11-01] MEDS: morphine 2 MG INJ IV PRN (20:31)
[2017-11-01] MEDS: FAMOTIDINE 20 MG TAB GTB SCH (20:40)
[2017-11-02] VITALS (57 sets, daily range): BP systolic 117–160; BP diastolic 67–101; PULSE 83–108; RESP 10–36
[2017-11-02] MEDS: ACCU-CHEK XX SCH (01:49)
[2017-11-02] MEDS: MIDAZOLAM (DRIP) 50 mg/50 mL 50 ML IV SCH ×4 (03:32→19:07)
[2017-11-02 04:39] LABS: BASOPHIL # 0.1 10^3/ul (0.0-0.1); BASOPHILS % 0.9 % (0.0-2.0); EOSINOPHILS # 0.4 10^3/ul (0.0-0.5); EOSINOPHILS % 3.8 % (0.0-7.0); HEMOGLOBIN 10.7 g/dl (14.0-18.0); LYMPHOCYTES # 2.4 10^3/ul (0.8-2.9); MEAN CORPUSCULAR HEMOGLOBIN 24.9 pg (29.0-33.0); MEAN CORPUSCULAR HGB CONC 29.7 g/dl (32.0-37.0); MEAN CORPUSCULAR VOLUME 83.7 fl (82.0-101.0); MEAN PLATELET VOLUME 11.5 fl (7.4-10.4); NEUTROPHILS % 60.4 % (39.0-77.0); PLATELET COUNT 474 10^3/UL (140-415); RED CELL DISTRIBUTION WIDTH 17.4 % (11.5-14.5); WHITE BLOOD COUNT 9.9 10^3/ul (4.8-10.8)
[2017-11-02 04:57] LABS: CREATININE 0.77 mg/dl (0.61-1.24); POTASSIUM 3.4 mmol/L (3.5-5.1)
[2017-11-02] MEDS: INSULIN ASPART [NOVOLOG] 3 ML PEN SC SCH ×3 (05:50→22:00)
[2017-11-02] MEDS: LACTULOSE 30ML CUP PO SCH ×3 (05:51→21:23)
--- NOTE | 2017-11-02 06:44 | OPR ---
DATE OF OPERATION: PREOPERATIVE DIAGNOSIS: Respiratory failure. POSTOPERATIVE DIAGNOSIS: Respiratory failure. OPERATION PERFORMED: Tracheostomy. SURGEON: Deandre Haines MD ANESTHESIA: General. CONSENT: Risks, benefits, complications, alternative therapies explained to the patient and the fam yuan, consent obtained. OPERATIVE TECHNIQUE: The patient was placed in supine position, prepped and draped in usual sterile fashion, 1% lidocaine was used throughout the operation for local anesthesia. I made a 2 cm incisi on 1 fingerbreadth superior to the sternal notch horizontal fashion. Incision was taken tied down t o subcutaneous tissue using Metzenbaum scissors. Access was gained into the trachea. Using progres sively larger dilators; the trachea and the subcutaneous tissues were dilated and 10 endotracheal tu be was removed, 8 cuffed tracheostomy tube advanced into the trachea, secured to skin using 2-0 silk sutures and 4 nylon sutures, silk sutures and a trach tie. Patient tolerated procedure well. Adequate end tidal CO2 was obtained. Dictated By: DEANDRE HAINES MD FM/NTS Conf#: [id number] DID#: [id number] CC: LORENA JONES MD; DEANDRE HAINES MD;*EndCC*
[2017-11-02] MEDS ORDERED: MAGNESIUM SULFATE 1 GM/D5W 100 ML IVPB ONE (06:45)
[2017-11-02] MEDS: FENTAnyl (DRIP) 1000 mcg/100mL 100 ML IV SCH ×2 (07:01→17:23)
[2017-11-02] MEDS ORDERED: POTASSIUM CHLORIDE 250 ML IVPB ONE (08:00)
[2017-11-02] MEDS: POLYETHYLENE GLYCOL 17 GM PACKET NGT SCH (09:00)
[2017-11-02] MEDS: DOCUSATE SODIUM 10 MG/ML (10ML CUP) GTB SCH ×2 (09:00→21:20)
[2017-11-02] MEDS: ENOXAPARIN 100 MG/ML SYG SC SCH ×2 (09:00→21:00)
[2017-11-02] MEDS: EUCERIN 113 GM CR TOP SCH ×2 (09:12→21:21)
[2017-11-02] MEDS: TRIAMCINOLONE ACET 0.1% 15 GM OINT TOP SCH ×2 (09:12→21:21)
--- NOTE | 2017-11-02 10:39 | PN ---
Date/Time of Note Date/Time of Note DATE: 11/02/17 TIME: 10:38 Assessment/Plan Lines/Catheters IV Catheter Type (from Nrsg): PICC Line Fierro in Place (from Nrsg): Yes Assessment/Plan Chief Complaint/Hosp Course IMPRESSION: Respiratory failure. SP Tracheostomy will continue vent support Pul toilet Problems: Subjective 24 Hr Interval Summary Constitutional: improved Pain Control: mild Exam/Review of Systems Vital Signs Vitals Vital Signs Date Time Temp Pulse Resp B/P Pulse Ox O2 Delivery O2 Flow Rate FiO2 11/02/17 10:00 92 24 134/75 96 Mechanical Ventilator 11/02/17 08:00 99.0 11/02/17 08:00 40 Intake and Output 11/01/17 11/01/17 11/02/17 15:00 23:00 07:00 Intake Total 760 ml 825.000 ml 140 ml Output Total 360 ml 950 ml 895 ml Balance 400 ml -125.000 ml -755 ml Exam Eyes: EOMI, nl conjunctiva, nl lids, nl sclera ENMT: mucosa pink and moist, nl external ears & nose, nl lips & teeth, nl nasal mucosa & septum Neck: non-tender, supple Respiratory: clear to auscultation, normal air movement Cardiovascular: nl pulses, regular rate and rhythm Results Result Diagram: 11/02/1739911/02/17399 DRISS JIMENEZ MD Nov 02, 2017 10:39
--- NOTE | 2017-11-02 11:53 | PN ---
Date/Time of Note Date/Time of Note DATE: 11/02/17 TIME: 11:37 Assessment/Plan VTE Prophylaxis VTE Prophylaxis Intervention: SCD's Lines/Catheters IV Catheter Type (from Nrsg): PICC Line Central line still needed: Yes Urinary Cath still in place: Yes Reason Cath still needed: other (indicate) (Intake and output monitoring) Assessment/Plan Chief Complaint/Hosp Course Assessment: Feeding difficulty Ventilator dependent Morbid obesity, Type 2 diabetes Hx of cardiac arrest Respiratory failure S/p tracheostomy Plan: PEG placement today Keep NPO Patient is tolerating tracheostomy well. Remains sedated on fentanyl and Versed drip. Patient remains n.p.o. Family is in agreement with the treatment plan. Telephone consent for EGD and PEG placement documented in the chart. Labs reviewed . Discussed the plan of action with nursing staff Consultation performed in collaboration with Dr. Joseph PHYSICAL EXAMINATION: GENERAL: Morbidly obese, sedated, in no acute distress SKIN: Dry scattered patches on the lower extremities, no stigmata chronic liver disease, no evidence of bleeding diathesis LYMPHATIC: No palpable lymphadenopathy. HEAD: Normocephalic, atraumatic, no tenderness. EYES: Pupils equal reactive to light and accommodation, full extraocular movements, sclera clear, non-icteric, no discharge. EARS/NOSE AND THROAT: Ears normal, nose normal, oropharynx normal, oral membranes well hydrated without lesions. NECK: Supple, no masses, JVP within normal limits, carotids normal without bruits. Tracheostomy in place. On the ventilator. CHEST: Inspection within normal limits. CARDIOVASCULAR: Heart: Regular rate and rhythm, no murmurs, gallops or rubs. Peripheral pulses present within normal limits, no cyanosis, clubbing or edemas. No pulsatile abdominal mass RESPIRATORY: Lungs clear to auscultation and percussion, no wheezing, no rubs GASTROINTESTINAL AND LIVER: Abdomen: Soft, non tenderness, non-distended, no hernias, no masses, no organomegaly, no ascites, no guarding, no rebound tenderness, normoactive bowel sounds. Rectal: Deferred. GENITOURINARY: male genitalia within normal limits. EXTREMITIES: No cyanosis, clubbing or edema. Problems: Exam/Review of Systems Vital Signs Vitals Vital Signs Date Time Temp Pulse Resp B/P Pulse Ox O2 Delivery O2 Flow Rate FiO2 11/02/17 10:00 92 24 134/75 96 Mechanical Ventilator 11/02/17 08:00 99.0 11/02/17 08:00 40 Intake and Output 11/01/17 11/01/17 11/02/17 15:00 23:00 07:00 Intake Total 760 ml 825.000 ml 140 ml Output Total 360 ml 950 ml 895 ml Balance 400 ml -125.000 ml -755 ml Results Result Diagram: 11/02/17 0400 11/02/17 0400 Results 24 hrs Laboratory Tests Test 11/01/17 14:17 11/01/17 21:40 11/02/17 04:00 11/02/17 05:50 Bedside Glucose 83 93 86 White Blood Count 9.9 Red Blood Count 4.30 L Hemoglobin 10.7 L Hematocrit 36.0 L Mean Corpuscular Volume 83.7 Mean Corpuscular Hemoglobin 24.9 L Mean Corpuscular Hemoglobin Concent 29.7 L Red Cell Distribution Width 17.4 H Platelet Count 474 H Mean Platelet Volume 11.5 H Neutrophils % 60.4 Lymphocytes % 24.0 Monocytes % 10.0 Eosinophils % 3.8 Basophils % 0.9 Nucleated Red Blood Cells % 0.0 Neutrophils # 6.0 Lymphocytes # 2.4 Monocytes # 1.0 H Eosinophils # 0.4 Basophils # 0.1 Nucleated Red Blood Cells # 0.0 Sodium Level 150 H Potassium Level 3.4 L Chloride Level 107 Carbon Dioxide Level 35 H Anion Gap 11 Blood Urea Nitrogen 9 Creatinine 0.77 Glucose Level 97 Calcium Level 9.0 Magnesium Level 1.7 Medications Medications Current Medications Ondansetron HCl (Zofran Inj) 4 mg Q6H PRN IV NAUSEA AND/OR VOMITING Last administered on 10/17/17 03:01; Admin Dose 4 MG; Start 10/14/17 at 21:30 Nitroglycerin (Nitroglycerin (Sl Tab) 0.4 Mg) 1 tab Q5M PRN SL CHEST PAIN; Start 10/14/17 at 21:30 Acetaminophen (Tylenol Tab) 650 mg Q6H PRN PO PAIN LEVEL 1-3 OR FEVER Last administered on 10/25/17 11:13; Admin Dose 650 MG; Start 10/14/17 at 21:30 Enoxaparin Sodium (Lovenox) 245 mg Q12 SC Last administered on 10/31/17 21:00 ; Admin Dose 245 MG; Start 10/16/17 at 01:00 Morphine Sulfate (morphine) 2 mg Q4H PRN IV PAIN LEVEL 7-10 Last administered on 11/01/17 20:31; Admin Dose 2 MG; Start 10/16/17 at 00:00 Multi-Ingredient Ointment (Eucerin Cream) 1 applic BID TOP Last administered on 11/02/17 09:12; Admin Dose 1 APPLIC; Start 10/16/17 at 09:00 Triamcinolone Acetonide (Kenalog 0.1% Oint) 1 applic BID TOP Last administered on 11/02/17 09:12; Admin Dose 1 APPLIC; Start 10/16/17 at 14:00 Famotidine 20 mg 20 mg HS GTB Last administered on 11/01/17 20:40; Admin Dose 20 MG; Start 10/17/17 at 21:00 Fentanyl (Sublimaze) 100 ml @ 2.5 mls/hr TITRATE IV Last administered on 07:01; Admin Dose 10 MLS/HR; Start 10/18/17 at 10:00 Lorazepam (Ativan) 2 mg Q4H PRN IV AGITATION Last administered on 10/31/17 15 :17; Admin Dose 2 MG; Start 10/18/17 at 21:00 Diagnostic Test (Pha) (Accu-Chek) 1 ea 02 XX Last administered on 10/31/17 01 :31; Admin Dose 1 EA; Start 10/20/17 at 02:00 Miscellaneous Information 1 ea NOTE XX ; Start 10/19/17 at 18:00 Glucose (Glutose) 15 gm Q15M PRN PO DECREASED GLUCOSE; Start 10/19/17 at 18:00 Glucose (Glutose) 22.5 gm Q15M PRN PO DECREASED GLUCOSE; Start 10/19/17 at 18: 00 Dextrose (D50w Syringe) 25 ml Q15M PRN IV DECREASED GLUCOSE; Start 10/19/17 at 18:00 Dextrose (D50w Syringe) 50 ml Q15M PRN IV DECREASED GLUCOSE; Start 10/19/17 at 18:00 Glucagon (Glucagen) 1 mg Q15M PRN IM DECREASED GLUCOSE; Start 10/19/17 at 18: 00 Glucose 15 gm 15 gm Q15M PRN BUCCAL DECREASED GLUCOSE; Start 10/19/17 at 18:00 Midazolam HCl (Versed) 50 ml @ 1 mls/hr TITRATE IV Last administered on 08:07; Admin Dose 10 MLS/HR; Start 10/21/17 at 09:30 IV Flush (NS 10 ml) 10 ml PRN PRN IV IV PROTOCOL; Start 10/22/17 at 19:00 Insulin Aspart (Novolog Insulin Pen) NOVOLOG *MILD* ALGORI... Q8 SC ; Start at 22:00 Docusate Sodium (Colace Liquid Cup) 100 mg BID GTB Last administered on 20:41; Admin Dose 100 MG; Start 10/24/17 at 21:00 Polyethylene Glycol (Miralax) 17 gm DAILY NGT Last administered on 10/31/17 09:22; Admin Dose 17 GM; Start 10/24/17 at 21:00 Lactulose 20 gm 20 gm Q8 PO Last administered on 11/02/17 05:51; Admin Dose 20 GM; Start 10/30/17 at 14:30 Potassium Chloride (KCl 40 MEQ/250 ML NS) 250 ml @ 62.5 mls/hr ONCE ONCE IVPB Last administered on 11/02/17 09:09; Admin Dose 62.5 MLS/HR; Start 11/02/17 at 08:00; Stop 11/02/17 at 11:59 JOSEFA WINTERS NP Nov 02, 2017 11:53
--- NOTE | 2017-11-02 12:41 | PN ---
Date/Time of Note Date/Time of Note DATE: 11/02/17 TIME: 12:39 Assessment/Plan VTE Prophylaxis VTE Prophylaxis Intervention: SCD's Lines/Catheters IV Catheter Type (from Nrsg): PICC Line Central line still needed: No Urinary Cath still in place: Yes Reason Cath still needed: other (indicate) (will dc once restraints are stopped ) Assessment/Plan Assessment/Plan Assessment/Plan 47 yo M with super morbid obesity, DM presented to SOB intubated for airway protection in setting of CO2 narcosis and pulmonary edema. #prolonged combined hypoxic and hypercapnic respiratory failure sp trach, PEG pending #possible PE? cont therapeutic LMWH. consider warfarin after PEG/trach are complete #hypernatremia; reume as IVFs as worsened when they were stopped WEAN SEDATION AND DC RESTRAINTS critical care time:30 minutes Subjective 24 Hr Interval Summary Free Text/Dictation trached, responds to voice Exam/Review of Systems Vital Signs Vitals Vital Signs Date Time Temp Pulse Resp B/P Pulse Ox O2 Delivery O2 Flow Rate FiO2 11/02/17 12:30 92 24 131/77 96 11/02/17 12:00 98.7 Mechanical Ventilator 11/02/17 11:30 40 Intake and Output 11/01/17 11/01/17 11/02/17 14:59 22:59 06:59 Intake Total 860 ml 825.000 ml 140 ml Output Total 370 ml 875 ml 895 ml Balance 490 ml -50.000 ml -755 ml Exam sedation still on trach site c/d/i no mrg lungs clear obese na noted Results Result Diagram: 11/02/17 0400 11/02/17 0400 Results 24 hrs Laboratory Tests Test 11/01/17 14:17 11/01/17 21:40 11/02/17 04:00 11/02/17 05:50 Bedside Glucose 83 93 86 White Blood Count 9.9 Red Blood Count 4.30 L Hemoglobin 10.7 L Hematocrit 36.0 L Mean Corpuscular Volume 83.7 Mean Corpuscular Hemoglobin 24.9 L Mean Corpuscular Hemoglobin Concent 29.7 L Red Cell Distribution Width 17.4 H Platelet Count 474 H Mean Platelet Volume 11.5 H Neutrophils % 60.4 Lymphocytes % 24.0 Monocytes % 10.0 Eosinophils % 3.8 Basophils % 0.9 Nucleated Red Blood Cells % 0.0 Neutrophils # 6.0 Lymphocytes # 2.4 Monocytes # 1.0 H Eosinophils # 0.4 Basophils # 0.1 Nucleated Red Blood Cells # 0.0 Sodium Level 150 H Potassium Level 3.4 L Chloride Level 107 Carbon Dioxide Level 35 H Anion Gap 11 Blood Urea Nitrogen 9 Creatinine 0.77 Glucose Level 97 Calcium Level 9.0 Magnesium Level 1.7 Medications Medications Current Medications Ondansetron HCl (Zofran Inj) 4 mg Q6H PRN IV NAUSEA AND/OR VOMITING Last administered on 10/17/17 03:01; Admin Dose 4 MG; Start 10/14/17 at 21:30 Nitroglycerin (Nitroglycerin (Sl Tab) 0.4 Mg) 1 tab Q5M PRN SL CHEST PAIN; Start 10/14/17 at 21:30 Acetaminophen (Tylenol Tab) 650 mg Q6H PRN PO PAIN LEVEL 1-3 OR FEVER Last administered on 10/25/17 11:13; Admin Dose 650 MG; Start 10/14/17 at 21:30 Enoxaparin Sodium (Lovenox) 245 mg Q12 SC Last administered on 10/31/17 21:00 ; Admin Dose 245 MG; Start 10/16/17 at 01:00 Morphine Sulfate (morphine) 2 mg Q4H PRN IV PAIN LEVEL 7-10 Last administered on 11/01/17 20:31; Admin Dose 2 MG; Start 10/16/17 at 00:00 Multi-Ingredient Ointment (Eucerin Cream) 1 applic BID TOP Last administered on 11/02/17 09:12; Admin Dose 1 APPLIC; Start 10/16/17 at 09:00 Triamcinolone Acetonide (Kenalog 0.1% Oint) 1 applic BID TOP Last administered on 11/02/17 09:12; Admin Dose 1 APPLIC; Start 10/16/17 at 14:00 Famotidine 20 mg 20 mg HS GTB Last administered on 11/01/17 20:40; Admin Dose 20 MG; Start 10/17/17 at 21:00 Fentanyl (Sublimaze) 100 ml @ 2.5 mls/hr TITRATE IV Last administered on 07:01; Admin Dose 10 MLS/HR; Start 10/18/17 at 10:00 Lorazepam (Ativan) 2 mg Q4H PRN IV AGITATION Last administered on 10/31/17 15 :17; Admin Dose 2 MG; Start 10/18/17 at 21:00 Diagnostic Test (Pha) (Accu-Chek) 1 ea 02 XX Last administered on 10/31/17 01 :31; Admin Dose 1 EA; Start 10/20/17 at 02:00 Miscellaneous Information 1 ea NOTE XX ; Start 10/19/17 at 18:00 Glucose (Glutose) 15 gm Q15M PRN PO DECREASED GLUCOSE; Start 10/19/17 at 18:00 Glucose (Glutose) 22.5 gm Q15M PRN PO DECREASED GLUCOSE; Start 10/19/17 at 18: 00 Dextrose (D50w Syringe) 25 ml Q15M PRN IV DECREASED GLUCOSE; Start 10/19/17 at 18:00 Dextrose (D50w Syringe) 50 ml Q15M PRN IV DECREASED GLUCOSE; Start 10/19/17 at 18:00 Glucagon (Glucagen) 1 mg Q15M PRN IM DECREASED GLUCOSE; Start 10/19/17 at 18: 00 Glucose 15 gm 15 gm Q15M PRN BUCCAL DECREASED GLUCOSE; Start 10/19/17 at 18:00 Midazolam HCl (Versed) 50 ml @ 1 mls/hr TITRATE IV Last administered on 08:07; Admin Dose 10 MLS/HR; Start 10/21/17 at 09:30 IV Flush (NS 10 ml) 10 ml PRN PRN IV IV PROTOCOL; Start 10/22/17 at 19:00 Insulin Aspart (Novolog Insulin Pen) NOVOLOG *MILD* ALGORI... Q8 SC ; Start at 22:00 Docusate Sodium (Colace Liquid Cup) 100 mg BID GTB Last administered on 20:41; Admin Dose 100 MG; Start 10/24/17 at 21:00 Polyethylene Glycol (Miralax) 17 gm DAILY NGT Last administered on 10/31/17 09:22; Admin Dose 17 GM; Start 10/24/17 at 21:00 Lactulose (Enulose) 20 gm Q8 PO Last administered on 11/02/17 05:51; Admin Dose 20 GM; Start 10/30/17 at 14:30 LEXII LADD MD Nov 02, 2017 12:41
[2017-11-02] MEDS ORDERED: morphine 2 MG INJ IV PRN (13:00)
[2017-11-02] MEDS ORDERED: morphine 10 MG INJ IV PRN (13:00)
[2017-11-02] MEDS ORDERED: morphine 4 MG/ML VIAL IV PRN (13:00)
[2017-11-02] MEDS ORDERED: hydrALAzine 20 MG INJ IV PRN (13:00)
[2017-11-02] MEDS ORDERED: EPHEDrine SULFATE 50 MG/5 ML SYG IV PRN (13:00)
[2017-11-02] MEDS ORDERED: CEFAZOLIN 2 GM/50 ML (PMX) 50 ML IVPB ONE (13:00)
[2017-11-02] MEDS ORDERED: LABETALOL HCL 20MG INJ IV PRN (13:00)
[2017-11-02] MEDS ORDERED: DIPHENHYDRAMINE 50 MG INJ IV PRN (13:00)
--- NOTE | 2017-11-02 13:16 | CONS ---
Date/Time of Note Date/Time of Note DATE: 11/02/17 TIME: 13:12 Consult Date/Type/Reason Admit Date/Time Oct 14, 2017 at 20:55 Initial Consult Date 10/30/17 Type of Consultation: Pulmonary/CCM Subjective s/p trach last pm; now awaiting PEG placement. Objective Vital Signs Date Time Temp Pulse Resp B/P Pulse Ox O2 Delivery O2 Flow Rate FiO2 11/02/17 12:30 92 24 131/77 96 11/02/17 12:00 98.7 Mechanical Ventilator 11/02/17 11:30 40 Intake and Output 11/01/17 11/01/17 11/02/17 15:00 23:00 07:00 Intake Total 760 ml 825.000 ml 140 ml Output Total 360 ml 950 ml 895 ml Balance 400 ml -125.000 ml -755 ml Exam HEENT: Neck supple; no JVD; no LAD; + trach site clear CVS: RRR, S1 and S2 CHEST: + rhonchi B/L ABD: Obese, NT, + BS EXT: No c/c; + edema Results/Medications Result Diagram: 11/02/17 0400 11/02/17 0400 Results 24 hrs Laboratory Tests Test 11/01/17 14:17 11/01/17 21:40 11/02/17 04:00 11/02/17 05:50 Bedside Glucose 83 93 86 White Blood Count 9.9 Red Blood Count 4.30 L Hemoglobin 10.7 L Hematocrit 36.0 L Mean Corpuscular Volume 83.7 Mean Corpuscular Hemoglobin 24.9 L Mean Corpuscular Hemoglobin Concent 29.7 L Red Cell Distribution Width 17.4 H Platelet Count 474 H Mean Platelet Volume 11.5 H Neutrophils % 60.4 Lymphocytes % 24.0 Monocytes % 10.0 Eosinophils % 3.8 Basophils % 0.9 Nucleated Red Blood Cells % 0.0 Neutrophils # 6.0 Lymphocytes # 2.4 Monocytes # 1.0 H Eosinophils # 0.4 Basophils # 0.1 Nucleated Red Blood Cells # 0.0 Sodium Level 150 H Potassium Level 3.4 L Chloride Level 107 Carbon Dioxide Level 35 H Anion Gap 11 Blood Urea Nitrogen 9 Creatinine 0.77 Glucose Level 97 Calcium Level 9.0 Magnesium Level 1.7 Medications Current Medications Ondansetron HCl (Zofran Inj) 4 mg Q6H PRN IV NAUSEA AND/OR VOMITING Last administered on 10/17/17 03:01; Admin Dose 4 MG; Start 10/14/17 at 21:30 Nitroglycerin (Nitroglycerin (Sl Tab) 0.4 Mg) 1 tab Q5M PRN SL CHEST PAIN; Start 10/14/17 at 21:30 Acetaminophen (Tylenol Tab) 650 mg Q6H PRN PO PAIN LEVEL 1-3 OR FEVER Last administered on 10/25/17 11:13; Admin Dose 650 MG; Start 10/14/17 at 21:30 Enoxaparin Sodium (Lovenox) 245 mg Q12 SC Last administered on 10/31/17 21:00 ; Admin Dose 245 MG; Start 10/16/17 at 01:00 Morphine Sulfate (morphine) 2 mg Q4H PRN IV PAIN LEVEL 7-10 Last administered on 11/01/17 20:31; Admin Dose 2 MG; Start 10/16/17 at 00:00 Multi-Ingredient Ointment (Eucerin Cream) 1 applic BID TOP Last administered on 11/02/17 09:12; Admin Dose 1 APPLIC; Start 10/16/17 at 09:00 Triamcinolone Acetonide (Kenalog 0.1% Oint) 1 applic BID TOP Last administered on 11/02/17 09:12; Admin Dose 1 APPLIC; Start 10/16/17 at 14:00 Famotidine 20 mg 20 mg HS GTB Last administered on 11/01/17 20:40; Admin Dose 20 MG; Start 10/17/17 at 21:00 Fentanyl (Sublimaze) 100 ml @ 2.5 mls/hr TITRATE IV Last administered on 07:01; Admin Dose 10 MLS/HR; Start 10/18/17 at 10:00 Lorazepam (Ativan) 2 mg Q4H PRN IV AGITATION Last administered on 10/31/17 15 :17; Admin Dose 2 MG; Start 10/18/17 at 21:00 Diagnostic Test (Pha) (Accu-Chek) 1 ea 02 XX Last administered on 10/31/17 01 :31; Admin Dose 1 EA; Start 10/20/17 at 02:00 Miscellaneous Information 1 ea NOTE XX ; Start 10/19/17 at 18:00 Glucose (Glutose) 15 gm Q15M PRN PO DECREASED GLUCOSE; Start 10/19/17 at 18:00 Glucose (Glutose) 22.5 gm Q15M PRN PO DECREASED GLUCOSE; Start 10/19/17 at 18: 00 Dextrose (D50w Syringe) 25 ml Q15M PRN IV DECREASED GLUCOSE; Start 10/19/17 at 18:00 Dextrose (D50w Syringe) 50 ml Q15M PRN IV DECREASED GLUCOSE; Start 10/19/17 at 18:00 Glucagon (Glucagen) 1 mg Q15M PRN IM DECREASED GLUCOSE; Start 10/19/17 at 18: 00 Glucose 15 gm 15 gm Q15M PRN BUCCAL DECREASED GLUCOSE; Start 10/19/17 at 18:00 Midazolam HCl (Versed) 50 ml @ 1 mls/hr TITRATE IV Last administered on 08:07; Admin Dose 10 MLS/HR; Start 10/21/17 at 09:30 IV Flush (NS 10 ml) 10 ml PRN PRN IV IV PROTOCOL; Start 10/22/17 at 19:00 Insulin Aspart (Novolog Insulin Pen) NOVOLOG *MILD* ALGORI... Q8 SC ; Start at 22:00 Docusate Sodium (Colace Liquid Cup) 100 mg BID GTB Last administered on 20:41; Admin Dose 100 MG; Start 10/24/17 at 21:00 Polyethylene Glycol (Miralax) 17 gm DAILY NGT Last administered on 10/31/17 09:22; Admin Dose 17 GM; Start 10/24/17 at 21:00 Lactulose 20 gm 20 gm Q8 PO Last administered on 11/02/17 05:51; Admin Dose 20 GM; Start 10/30/17 at 14:30 Dextrose 1,000 ml @ 100 mls/hr Q10H IV ; Start 11/02/17 at 13:00 Cefazolin Sodium/ Dextrose (Ancef 2 Gm/50 ml (Pmx)) 50 ml @ 100 mls/hr ONCE ONCE IVPB ; Start 11/02/17 at 13:00; Stop 11/02/17 at 13:29 Assessment/Plan Additional Assessment/Plan IMP: 1. Acute on chronic hypercapnic respiratory failure/Failure to wean 2. HFpEF 3. Likely JANA/OHS 4. Possible thromboembolic disease 5. Hypercapnea PLAN: 1. Will initiate CPAP trails tomorrow. 3. Bronchodilators/trach care 4. Continue diuresis 5. Deep venous thrombosis and gastrointestinal prophylaxis. 6. Am CXR/ABG 7. Await trach 35 min cc time JASMYN PATRICK MD Nov 02, 2017 13:16
--- NOTE | 2017-11-02 13:26 | OPPN ---
Date/Time of Note Date/Time of Note DATE: 11/02/17 TIME: 13:21 Proc Note GI Procedure Date 11/02/17 Indication: other (Enteral feeding requirement) Pre-procedure Diagnosis Enteral feeding requirement Post-procedure Diagnosis Impression: 1 cm antral gastric ulceration, benign endoscopic appearance, no stigmata Uneventful PEG Placement of Iraqi 20 gastrostomy tube Otherwise normal EGD Plan: PPI therapy May use gastrostomy tube for medications now Start feedings tomorrow Routine care of gastrostomy tube . Procedure Performed: Other (EGD plus PEG) Surgeon JOSE DAVID CRAWFORD MD See signature line Timber Buyer none Anesthesia Type: MAC Anesthesiologist: NUZHAT PICKARD Tourniquet Time none EBL none Transfusion required none Biopsy 1: None Grafts/Implants Iraqi 20 gastrostomy tube Tubes/Drains none Complication(s) none Procedure Description After informed consent, with the patient/relatives understanding the procedure, its indications, potential risks and complications, including but not limited to : Allergic reaction, bleeding, perforation or infection, and all after all pertinent questions were answered to the patient's satisfaction, patient/ relative signed witnessed informed consent. Following this, premedication was administered slowly IV push under care of cardiovascular respiratory monitoring with pulse oximetry, and automatic blood pressure, and quality assurance monitor. Once to sedative effect was achieved the patient was placed in the left lateral decubitus, the panendoscope was introduced and advanced under visual control. Careful examination of the upper gastrointestinal tract, both on insertion as well as withdrawal of the instrument disclosed following findings: ESOPHAGUS: The mucosa of the entire esophagus was carefully examined and showed the following findings: The mucosa appears within normal limits. There is no evidence of esophagitis, varices, neoplasm or stricture. No hiatal hernia identified. STOMACH: Upon entrance to the stomach air was insufflated, the gastric koehler distended normally. The mucosa of the fundus, body and antrum of the stomach was carefully examined both head-on and on retroflexion, and showed the following findings: There is a 1 cm active gastric ulcer in the antrum of the stomach. Benign endoscopic appearance, no stigmata. Otherwise the mucosa appears within normal limits with no abnormalities. There is no evidence of neoplasm. PYLORUS: The pylorus was carefully examined and showed the following findings: The pylorus appears patent and within normal limits, with no evidence of gastric outlet obstruction. DUODENUM: The duodenal mucosa was carefully examined in the duodenal bulb as well as the second portion of the duodenum and showed the following findings: The mucosa appears unremarkable with no evidence of duodenitis, ulcer or neoplasm. The instrument was then brought back to the stomach and the anterior wall mid- body was identified by transillumination and "finger indentation", this area was then marked in the anterior wall of the abdomen, it was cleansed with Betadine and infiltrated with Xylocaine 1%. Following this a trocar needle was introduced into the gastric lumen under visual control with the endoscope, once in the gastric lumen a guide wire was advanced and secured with a polypectomy snare, at this point the endoscope was withdrawn bringing the guidewire out through the patient's mouth. Following this a Iraqi #20 gastrostomy tube was introduced over the guidewire, with the Zahra-Swathi technique without difficulty , a small incision was performed in the skin to allow easy passage of the G-tube , once the position of the gastrostomy was confirmed, the external stopper and connectors were installed, and a clean dressing applied. The patient tolerated the procedure well and was transferred out of the endoscopy suite awake, and in good condition to continue recovery under observation, feedings will start in the next 12-24 hours and the discharge in the care will be instituted. Copies To: CC: JOSE DAVID CRAWFORD MD, MORDO MD Nov 02, 2017 13:26
[2017-11-02] MEDS: ONDANSETRON 4 MG INJ IV PRN (13:46)
[2017-11-02] MEDS: DEXTROSE 5% 1,000 ML IV SCH (15:50)
[2017-11-02] MEDS: PANTOPRAZOLE 40 MG INJ IV SCH (18:31)
[2017-11-02] MEDS: FUROSEMIDE 20 MG INJ IV SCH (18:31)
[2017-11-02] MEDS: ACETAMINOPHEN 325 MG TAB PO PRN (18:35)
[2017-11-02] MEDS: FAMOTIDINE 20 MG TAB GTB SCH (21:20)
[2017-11-03] VITALS (67 sets, daily range): BP systolic 106–182; BP diastolic 60–117; PULSE 84–107; RESP 11–31; Ht 172.7 cm; Wt 215.4 kg
[2017-11-03] MEDS: MIDAZOLAM (DRIP) 50 mg/50 mL 50 ML IV SCH ×3 (01:54→19:07)
[2017-11-03] MEDS: DEXTROSE 5% 1,000 ML IV SCH ×3 (01:58→19:08)
[2017-11-03] MEDS: ACCU-CHEK XX SCH (02:00)
[2017-11-03] MEDS: LACTULOSE 30ML CUP PO SCH ×3 (05:32→21:16)
[2017-11-03 05:37] LABS: BASOPHIL # 0.1 10^3/ul (0.0-0.1); BASOPHILS % 0.8 % (0.0-2.0); EOSINOPHILS # 0.3 10^3/ul (0.0-0.5); EOSINOPHILS % 2.9 % (0.0-7.0); HEMATOCRIT 37.6 % (42.0-52.0); HEMOGLOBIN 11.2 g/dl (14.0-18.0); LYMPHOCYTES # 2.3 10^3/ul (0.8-2.9); LYMPHOCYTES % 22.1 % (15.0-51.0); MEAN CORPUSCULAR HEMOGLOBIN 24.9 pg (29.0-33.0); MEAN CORPUSCULAR HGB CONC 29.8 g/dl (32.0-37.0); MEAN CORPUSCULAR VOLUME 83.6 fl (82.0-101.0); MEAN PLATELET VOLUME 11.1 fl (7.4-10.4); MONOCYTES % 9.8 % (0.0-11.0); NEUTROPHIL # 6.7 10^3/ul (1.6-7.5); NEUTROPHILS % 63.5 % (39.0-77.0); PLATELET COUNT 492 10^3/UL (140-415); RED CELL DISTRIBUTION WIDTH 17.6 % (11.5-14.5); WHITE BLOOD COUNT 10.5 10^3/ul (4.8-10.8)
[2017-11-03 05:45] LABS: CREATININE 0.76 mg/dl (0.61-1.24); MAGNESIUM 1.8 mg/dl (1.7-2.5); POTASSIUM 3.4 mmol/L (3.5-5.1)
[2017-11-03] MEDS: FENTAnyl (DRIP) 1000 mcg/100mL 100 ML IV SCH ×2 (05:49→15:24)
[2017-11-03] MEDS: PANTOPRAZOLE 40 MG INJ IV SCH ×2 (05:49→18:30)
[2017-11-03] MEDS: FUROSEMIDE 20 MG INJ IV SCH (05:49)
[2017-11-03] MEDS: INSULIN ASPART [NOVOLOG] 3 ML PEN SC SCH ×3 (06:00→21:59)
[2017-11-03] MEDS ORDERED: ALTEPLASE (CATHFLO) 2 MG INJ CATHETER PRN (07:30)
[2017-11-03] MEDS: POLYETHYLENE GLYCOL 17 GM PACKET NGT SCH (09:00)
[2017-11-03] MEDS: DOCUSATE SODIUM 10 MG/ML (10ML CUP) GTB SCH ×2 (09:00→21:00)
[2017-11-03] MEDS ORDERED: POTASSIUM CHLORIDE 20 MEQ POWDER FOR ORAL SOLN GTB ONE (09:00)
[2017-11-03] MEDS ORDERED: ENOXAPARIN 100 MG/ML SYG SC SCH (09:37)
[2017-11-03] MEDS: TRIAMCINOLONE ACET 0.1% 15 GM OINT TOP SCH ×2 (09:41→21:15)
[2017-11-03] MEDS: EUCERIN 113 GM CR TOP SCH ×2 (09:48→21:16)
--- NOTE | 2017-11-03 11:03 | RADRPT ---
PROCEDURE: XR Chest. CLINICAL INDICATION: Chest pain TECHNIQUE: Single AP view of the chest was obtained COMPARISON: 10/30/2017 FINDINGS: Tracheostomy noted. Interval removal of enteric feeding tube. Heart is enlarged. Vascular prominence and indistinctness. Lung bases are collimated from view. No acute osseous abnormality. IMPRESSION: Cardiomegaly with congestive change. Likely pleural effusions. No change in aeration. RPTAT: AA Jeison Martinez Physician Date Time Electronically viewed and signed by Jeison Martinez Physician on 11/03/2017 11:02 MA/
[2017-11-03] MEDS: LORAZEPAM 2 MG INJ IV PRN ×2 (11:07→16:03)
--- NOTE | 2017-11-03 12:32 | PN ---
Date/Time of Note Date/Time of Note DATE: 11/03/17 TIME: 12:29 Assessment/Plan VTE Prophylaxis VTE Prophylaxis Intervention: SCD's Lines/Catheters IV Catheter Type (from Nrsg): PICC Line Central line still needed: No Urinary Cath still in place: Yes Reason Cath still needed: other (indicate) (dc ) Assessment/Plan Assessment/Plan 47 yo M with super morbid obesity, DM presented to SOB intubated for airway protection in setting of CO2 narcosis and pulmonary edema. #prolonged combined hypoxic and hypercapnic respiratory failure sp trach and PEG #possible PE? cont therapeutic LMWH. start warfarin 10 mg daily #hypernatremia; cont IVFs, consider following up with RD to adjust TFs. Spoke with RD this week and TFs were adjusted CM cs in place for LTAC eval WEAN SEDATION critical care time:30 minutes Exam/Review of Systems Vital Signs Vitals Vital Signs Date Time Temp Pulse Resp B/P Pulse Ox O2 Delivery O2 Flow Rate FiO2 11/03/17 11:20 95 18 96 40 11/03/17 10:15 141/98 Mechanical Ventilator 11/03/17 08:00 98.9 Intake and Output 11/02/17 11/02/17 11/03/17 15:00 23:00 07:00 Intake Total 557.0 ml 892.53 ml 1259.0 ml Output Total 445 ml 405 ml 960 ml Balance 112.0 ml 487.53 ml 299.0 ml Results Result Diagram: 11/03/17 0509 11/03/17 0509 Results 24 hrs Laboratory Tests Test 11/02/17 15:23 11/02/17 22:21 11/03/17 05:09 11/03/17 06:00 Bedside Glucose 93 106 106 White Blood Count 10.5 Red Blood Count 4.50 L Hemoglobin 11.2 L Hematocrit 37.6 L Mean Corpuscular Volume 83.6 Mean Corpuscular Hemoglobin 24.9 L Mean Corpuscular Hemoglobin Concent 29.8 L Red Cell Distribution Width 17.6 H Platelet Count 492 H Mean Platelet Volume 11.1 H Neutrophils % 63.5 Lymphocytes % 22.1 Monocytes % 9.8 Eosinophils % 2.9 Basophils % 0.8 Nucleated Red Blood Cells % 0.0 Neutrophils # 6.7 Lymphocytes # 2.3 Monocytes # 1.0 H Eosinophils # 0.3 Basophils # 0.1 Nucleated Red Blood Cells # 0.0 Sodium Level 148 H Potassium Level 3.4 L Chloride Level 105 Carbon Dioxide Level 35 H Anion Gap 11 Blood Urea Nitrogen 10 Creatinine 0.76 Glucose Level 113 Calcium Level 9.0 Magnesium Level 1.8 Medications Medications Current Medications Ondansetron HCl (Zofran Inj) 4 mg Q6H PRN IV NAUSEA AND/OR VOMITING Last administered on 11/02/17 13:46; Admin Dose 4 MG; Start 10/14/17 at 21:30 Nitroglycerin (Nitroglycerin (Sl Tab) 0.4 Mg) 1 tab Q5M PRN SL CHEST PAIN; Start 10/14/17 at 21:30 Acetaminophen (Tylenol Tab) 650 mg Q6H PRN PO PAIN LEVEL 1-3 OR FEVER Last administered on 11/02/17 18:35; Admin Dose 650 MG; Start 10/14/17 at 21:30 Morphine Sulfate (morphine) 2 mg Q4H PRN IV PAIN LEVEL 7-10 Last administered on 11/01/17 20:31; Admin Dose 2 MG; Start 10/16/17 at 00:00 Multi-Ingredient Ointment (Eucerin Cream) 1 applic BID TOP Last administered on 11/03/17 09:48; Admin Dose 1 APPLIC; Start 10/16/17 at 09:00 Triamcinolone Acetonide (Kenalog 0.1% Oint) 1 applic BID TOP Last administered on 11/03/17 09:41; Admin Dose 1 APPLIC; Start 10/16/17 at 14:00 Famotidine 20 mg 20 mg HS GTB Last administered on 11/02/17 21:20; Admin Dose 20 MG; Start 10/17/17 at 21:00 Fentanyl (Sublimaze) 100 ml @ 2.5 mls/hr TITRATE IV Last administered on 05:49; Admin Dose 9.5 MLS/HR; Start 10/18/17 at 10:00 Lorazepam (Ativan) 2 mg Q4H PRN IV AGITATION Last administered on 11/03/17 11: 07; Admin Dose 2 MG; Start 10/18/17 at 21:00 Diagnostic Test (Pha) (Accu-Chek) 1 ea 02 XX Last administered on 10/31/17 01 :31; Admin Dose 1 EA; Start 10/20/17 at 02:00 Miscellaneous Information 1 ea NOTE XX ; Start 10/19/17 at 18:00 Glucose (Glutose) 15 gm Q15M PRN PO DECREASED GLUCOSE; Start 10/19/17 at 18:00 Glucose (Glutose) 22.5 gm Q15M PRN PO DECREASED GLUCOSE; Start 10/19/17 at 18: 00 Dextrose (D50w Syringe) 25 ml Q15M PRN IV DECREASED GLUCOSE; Start 10/19/17 at 18:00 Dextrose (D50w Syringe) 50 ml Q15M PRN IV DECREASED GLUCOSE; Start 10/19/17 at 18:00 Glucagon (Glucagen) 1 mg Q15M PRN IM DECREASED GLUCOSE; Start 10/19/17 at 18: 00 Glucose 15 gm 15 gm Q15M PRN BUCCAL DECREASED GLUCOSE; Start 10/19/17 at 18:00 Midazolam HCl (Versed) 50 ml @ 1 mls/hr TITRATE IV Last administered on 09:42; Admin Dose 4 MLS/HR; Start 10/21/17 at 09:30 IV Flush (NS 10 ml) 10 ml PRN PRN IV IV PROTOCOL; Start 10/22/17 at 19:00 Insulin Aspart (Novolog Insulin Pen) NOVOLOG *MILD* ALGORI... Q8 SC ; Start at 22:00 Docusate Sodium (Colace Liquid Cup) 100 mg BID GTB Last administered on 21:20; Admin Dose 100 MG; Start 10/24/17 at 21:00 Polyethylene Glycol (Miralax) 17 gm DAILY NGT Last administered on 10/31/17 09:22; Admin Dose 17 GM; Start 10/24/17 at 21:00 Lactulose 20 gm 20 gm Q8 PO Last administered on 11/02/17 21:23; Admin Dose 20 GM; Start 10/30/17 at 14:30 Dextrose (D5W) 1,000 ml @ 100 mls/hr Q10H IV Last administered on 11/03/17 09 :42; Admin Dose 100 MLS/HR; Start 11/02/17 at 13:00 Pantoprazole (Protonix Iv) 40 mg BID@06,18 IV Last administered on 11/03/17 05 :49; Admin Dose 40 MG; Start 11/02/17 at 18:00 Enoxaparin Sodium (Lovenox) 220 mg Q12 SC ; Start 11/03/17 at 09:37 LEXII LADD MD Nov 03, 2017 12:32
--- NOTE | 2017-11-03 12:46 | CONS ---
Date/Time of Note Date/Time of Note DATE: 11/03/17 TIME: 12:41 Consult Date/Type/Reason Admit Date/Time Oct 14, 2017 at 20:55 Initial Consult Date 10/30/17 Type of Consultation: Pulmonary/CCM Subjective Remains on versed and fentanyl gtt. Responsive Objective Vital Signs Date Time Temp Pulse Resp B/P Pulse Ox O2 Delivery O2 Flow Rate FiO2 11/03/17 11:20 95 18 96 40 11/03/17 10:15 141/98 Mechanical Ventilator 11/03/17 08:00 98.9 Intake and Output 11/02/17 11/02/17 11/03/17 15:00 23:00 07:00 Intake Total 557.0 ml 892.53 ml 1259.0 ml Output Total 445 ml 405 ml 960 ml Balance 112.0 ml 487.53 ml 299.0 ml Exam HEENT: Neck supple; no JVD; no LAD; + trach site clear CVS: RRR, S1 and S2 distant CHEST: + rhonchi B/L ABD: Obese, NT, + BS EXT: No c/c; + edema Results/Medications Result Diagram: 11/03/17 0509 11/03/17 0509 Results 24 hrs Laboratory Tests Test 11/02/17 15:23 11/02/17 22:21 11/03/17 05:09 11/03/17 06:00 Bedside Glucose 93 106 106 White Blood Count 10.5 Red Blood Count 4.50 L Hemoglobin 11.2 L Hematocrit 37.6 L Mean Corpuscular Volume 83.6 Mean Corpuscular Hemoglobin 24.9 L Mean Corpuscular Hemoglobin Concent 29.8 L Red Cell Distribution Width 17.6 H Platelet Count 492 H Mean Platelet Volume 11.1 H Neutrophils % 63.5 Lymphocytes % 22.1 Monocytes % 9.8 Eosinophils % 2.9 Basophils % 0.8 Nucleated Red Blood Cells % 0.0 Neutrophils # 6.7 Lymphocytes # 2.3 Monocytes # 1.0 H Eosinophils # 0.3 Basophils # 0.1 Nucleated Red Blood Cells # 0.0 Sodium Level 148 H Potassium Level 3.4 L Chloride Level 105 Carbon Dioxide Level 35 H Anion Gap 11 Blood Urea Nitrogen 10 Creatinine 0.76 Glucose Level 113 Calcium Level 9.0 Magnesium Level 1.8 Medications Current Medications Ondansetron HCl (Zofran Inj) 4 mg Q6H PRN IV NAUSEA AND/OR VOMITING Last administered on 11/02/17 13:46; Admin Dose 4 MG; Start 10/14/17 at 21:30 Nitroglycerin (Nitroglycerin (Sl Tab) 0.4 Mg) 1 tab Q5M PRN SL CHEST PAIN; Start 10/14/17 at 21:30 Acetaminophen (Tylenol Tab) 650 mg Q6H PRN PO PAIN LEVEL 1-3 OR FEVER Last administered on 11/02/17 18:35; Admin Dose 650 MG; Start 10/14/17 at 21:30 Morphine Sulfate (morphine) 2 mg Q4H PRN IV PAIN LEVEL 7-10 Last administered on 11/01/17 20:31; Admin Dose 2 MG; Start 10/16/17 at 00:00 Multi-Ingredient Ointment (Eucerin Cream) 1 applic BID TOP Last administered on 11/03/17 09:48; Admin Dose 1 APPLIC; Start 10/16/17 at 09:00 Triamcinolone Acetonide (Kenalog 0.1% Oint) 1 applic BID TOP Last administered on 11/03/17 09:41; Admin Dose 1 APPLIC; Start 10/16/17 at 14:00 Famotidine 20 mg 20 mg HS GTB Last administered on 11/02/17 21:20; Admin Dose 20 MG; Start 10/17/17 at 21:00 Fentanyl (Sublimaze) 100 ml @ 2.5 mls/hr TITRATE IV Last administered on 05:49; Admin Dose 9.5 MLS/HR; Start 10/18/17 at 10:00 Lorazepam (Ativan) 2 mg Q4H PRN IV AGITATION Last administered on 11/03/17 11: 07; Admin Dose 2 MG; Start 10/18/17 at 21:00 Diagnostic Test (Pha) (Accu-Chek) 1 ea 02 XX Last administered on 10/31/17 01 :31; Admin Dose 1 EA; Start 10/20/17 at 02:00 Miscellaneous Information 1 ea NOTE XX ; Start 10/19/17 at 18:00 Glucose (Glutose) 15 gm Q15M PRN PO DECREASED GLUCOSE; Start 10/19/17 at 18:00 Glucose (Glutose) 22.5 gm Q15M PRN PO DECREASED GLUCOSE; Start 10/19/17 at 18: 00 Dextrose (D50w Syringe) 25 ml Q15M PRN IV DECREASED GLUCOSE; Start 10/19/17 at 18:00 Dextrose (D50w Syringe) 50 ml Q15M PRN IV DECREASED GLUCOSE; Start 10/19/17 at 18:00 Glucagon (Glucagen) 1 mg Q15M PRN IM DECREASED GLUCOSE; Start 10/19/17 at 18: 00 Glucose 15 gm 15 gm Q15M PRN BUCCAL DECREASED GLUCOSE; Start 10/19/17 at 18:00 Midazolam HCl (Versed) 50 ml @ 1 mls/hr TITRATE IV Last administered on 09:42; Admin Dose 4 MLS/HR; Start 10/21/17 at 09:30 IV Flush (NS 10 ml) 10 ml PRN PRN IV IV PROTOCOL; Start 10/22/17 at 19:00 Insulin Aspart (Novolog Insulin Pen) NOVOLOG *MILD* ALGORI... Q8 SC ; Start at 22:00 Docusate Sodium (Colace Liquid Cup) 100 mg BID GTB Last administered on 21:20; Admin Dose 100 MG; Start 10/24/17 at 21:00 Polyethylene Glycol (Miralax) 17 gm DAILY NGT Last administered on 10/31/17 09:22; Admin Dose 17 GM; Start 10/24/17 at 21:00 Lactulose 20 gm 20 gm Q8 PO Last administered on 11/02/17 21:23; Admin Dose 20 GM; Start 10/30/17 at 14:30 Dextrose (D5W) 1,000 ml @ 100 mls/hr Q10H IV Last administered on 11/03/17 09 :42; Admin Dose 100 MLS/HR; Start 11/02/17 at 13:00 Pantoprazole (Protonix Iv) 40 mg BID@06,18 IV Last administered on 11/03/17 05 :49; Admin Dose 40 MG; Start 11/02/17 at 18:00 Enoxaparin Sodium (Lovenox) 220 mg Q12 SC ; Start 11/03/17 at 09:37 Warfarin Sodium (Coumadin) 10 mg DAILY@17 PO ; Start 11/03/17 at 17:00 Assessment/Plan Additional Assessment/Plan IMP: 1. Acute on chronic hypercapnic respiratory failure/Failure to wean--s/p trach 2. HFpEF 3. Likely JANA/OHS 4. Possible thromboembolic disease 5. HyperNa+ PLAN: 1. Try SIMV with PS 3. Bronchodilators/trach care 4. Change diuresis to lasix 40 IV BID 5. Deep venous thrombosis and gastrointestinal prophylaxis. 6. Am CXR/ABG Case d/w family in detail 35 min cc time JASMYN PATRICK MD Nov 03, 2017 12:46
[2017-11-03] MEDS: FUROSEMIDE 40 MG INJ IV SCH ×2 (13:20→17:48)
--- NOTE | 2017-11-03 14:14 | PN ---
Date/Time of Note Date/Time of Note DATE: 11/03/17 TIME: 14:10 Assessment/Plan VTE Prophylaxis VTE Prophylaxis Intervention: SCD's Lines/Catheters IV [facility]): PICC Line Central line still needed: Yes Urinary Cath still in place: Yes Reason Cath still needed: other (indicate) (Monitor urine output) Assessment/Plan Chief Complaint/Hosp Course Assessment: Feeding difficulty Post uneventful PEG Incidental finding reactive antral gastric ulcer Respiratory failure/post tracheostomy/Ventilator dependent Suspected pulmonary embolism Morbid obesity Plan: PEG placement after tracheostomy is performed Subjective: Course reviewed with nursing staff Patient interviewed and examined All labs, imaging and other results reviewed The patient was started on feedings and is tolerating well Of note the patient has an active antral gastric ulceration and anticoagulation obviously increases the risk of bleeding If anticoagulation is absolutely necessary for contraindication as relative Exam: General: well developed, well nourished, obese, intubated and basically unresponsive Skin: No lesions, no stigmata chronic liver disease, no evidence of bleeding diathesis Lymphatic: No palpable lymphadenopathy HEENT: No lesions Neck: Post tracheostomy Cardiovascular: Heart: Regular rate and rhythm, no murmurs, gallops or rubs. Peripheral pulses present within normal limits, no cyanosis, clubbing or edemas. No pulsatile abdominal mass Respiratory: Lungs clear to auscultation and percussion, no wheezing, no rubs Gastrointestinal and Liver: Abdomen: Soft return in place. Soft, non tenderness , not distended, no hernias, no masses, no organomegaly, no ascites, no guarding , no rebound tenderness, normoactive bowel sounds. Extremities: No cyanosis, clubbing, or edema. Diagnostic Studies: Available data and images were reviewed personally. See reports. Significant results and findings are addressed here or in the assessment and plan. Problems: Exam/Review of Systems Vital Signs Vitals Vital Signs Date Time Temp Pulse Resp B/P Pulse Ox O2 Delivery O2 Flow Rate FiO2 11/03/17 12:30 102 23 125/72 96 Mechanical Ventilator 11/03/17 11:20 40 11/03/17 08:00 98.9 Intake and Output 11/02/17 11/02/17 11/03/17 15:00 23:00 07:00 Intake Total 557.0 ml 892.53 ml 1259.0 ml Output Total 445 ml 405 ml 960 ml Balance 112.0 ml 487.53 ml 299.0 ml Results Result Diagram: 11/03/17 0509 11/03/17 0509 Results 24 hrs Laboratory Tests Test 11/02/17 15:23 11/02/17 22:21 11/03/17 05:09 11/03/17 06:00 Bedside Glucose 93 106 106 White Blood Count 10.5 Red Blood Count 4.50 L Hemoglobin 11.2 L Hematocrit 37.6 L Mean Corpuscular Volume 83.6 Mean Corpuscular Hemoglobin 24.9 L Mean Corpuscular Hemoglobin Concent 29.8 L Red Cell Distribution Width 17.6 H Platelet Count 492 H Mean Platelet Volume 11.1 H Neutrophils % 63.5 Lymphocytes % 22.1 Monocytes % 9.8 Eosinophils % 2.9 Basophils % 0.8 Nucleated Red Blood Cells % 0.0 Neutrophils # 6.7 Lymphocytes # 2.3 Monocytes # 1.0 H Eosinophils # 0.3 Basophils # 0.1 Nucleated Red Blood Cells # 0.0 Sodium Level 148 H Potassium Level 3.4 L Chloride Level 105 Carbon Dioxide Level 35 H Anion Gap 11 Blood Urea Nitrogen 10 Creatinine 0.76 Glucose Level 113 Calcium Level 9.0 Magnesium Level 1.8 Test 11/03/17 13:14 Bedside Glucose 110 Medications Medications Current Medications Ondansetron HCl (Zofran Inj) 4 mg Q6H PRN IV NAUSEA AND/OR VOMITING Last administered on 11/02/17 13:46; Admin Dose 4 MG; Start 10/14/17 at 21:30 Nitroglycerin (Nitroglycerin (Sl Tab) 0.4 Mg) 1 tab Q5M PRN SL CHEST PAIN; Start 10/14/17 at 21:30 Acetaminophen (Tylenol Tab) 650 mg Q6H PRN PO PAIN LEVEL 1-3 OR FEVER Last administered on 11/02/17 18:35; Admin Dose 650 MG; Start 10/14/17 at 21:30 Morphine Sulfate (morphine) 2 mg Q4H PRN IV PAIN LEVEL 7-10 Last administered on 11/01/17 20:31; Admin Dose 2 MG; Start 10/16/17 at 00:00 Multi-Ingredient Ointment (Eucerin Cream) 1 applic BID TOP Last administered on 11/03/17 09:48; Admin Dose 1 APPLIC; Start 10/16/17 at 09:00 Triamcinolone Acetonide (Kenalog 0.1% Oint) 1 applic BID TOP Last administered on 11/03/17 09:41; Admin Dose 1 APPLIC; Start 10/16/17 at 14:00 Famotidine 20 mg 20 mg HS GTB Last administered on 11/02/17 21:20; Admin Dose 20 MG; Start 10/17/17 at 21:00 Fentanyl (Sublimaze) 100 ml @ 2.5 mls/hr TITRATE IV Last administered on 05:49; Admin Dose 9.5 MLS/HR; Start 10/18/17 at 10:00 Lorazepam (Ativan) 2 mg Q4H PRN IV AGITATION Last administered on 11/03/17 11: 07; Admin Dose 2 MG; Start 10/18/17 at 21:00 Diagnostic Test (Pha) (Accu-Chek) 1 ea 02 XX Last administered on 10/31/17 01 :31; Admin Dose 1 EA; Start 10/20/17 at 02:00 Miscellaneous Information 1 ea NOTE XX ; Start 10/19/17 at 18:00 Glucose (Glutose) 15 gm Q15M PRN PO DECREASED GLUCOSE; Start 10/19/17 at 18:00 Glucose (Glutose) 22.5 gm Q15M PRN PO DECREASED GLUCOSE; Start 10/19/17 at 18: 00 Dextrose (D50w Syringe) 25 ml Q15M PRN IV DECREASED GLUCOSE; Start 10/19/17 at 18:00 Dextrose (D50w Syringe) 50 ml Q15M PRN IV DECREASED GLUCOSE; Start 10/19/17 at 18:00 Glucagon (Glucagen) 1 mg Q15M PRN IM DECREASED GLUCOSE; Start 10/19/17 at 18: 00 Glucose 15 gm 15 gm Q15M PRN BUCCAL DECREASED GLUCOSE; Start 10/19/17 at 18:00 Midazolam HCl (Versed) 50 ml @ 1 mls/hr TITRATE IV Last administered on 09:42; Admin Dose 4 MLS/HR; Start 10/21/17 at 09:30 IV Flush (NS 10 ml) 10 ml PRN PRN IV IV PROTOCOL; Start 10/22/17 at 19:00 Insulin Aspart (Novolog Insulin Pen) NOVOLOG *MILD* ALGORI... Q8 SC ; Start at 22:00 Docusate Sodium (Colace Liquid Cup) 100 mg BID GTB Last administered on 21:20; Admin Dose 100 MG; Start 10/24/17 at 21:00 Polyethylene Glycol (Miralax) 17 gm DAILY NGT Last administered on 10/31/17 09:22; Admin Dose 17 GM; Start 10/24/17 at 21:00 Lactulose 20 gm 20 gm Q8 PO Last administered on 11/02/17 21:23; Admin Dose 20 GM; Start 10/30/17 at 14:30 Dextrose (D5W) 1,000 ml @ 100 mls/hr Q10H IV Last administered on 11/03/17 09 :42; Admin Dose 100 MLS/HR; Start 11/02/17 at 13:00 Pantoprazole (Protonix Iv) 40 mg BID@06,18 IV Last administered on 11/03/17 05 :49; Admin Dose 40 MG; Start 11/02/17 at 18:00 Enoxaparin Sodium (Lovenox) 220 mg Q12 SC ; Start 11/03/17 at 09:37; Status Future Hold Enoxaparin Sodium (Lovenox) 40 mg DAILY SC ; Start 11/04/17 at 09:00 JOSE DAVID CRAWFORD MD Nov 03, 2017 14:14
--- NOTE | 2017-11-03 15:09 | PN ---
Date/Time of Note Date/Time of Note DATE: 11/03/17 TIME: 15:08 Assessment/Plan Lines/Catheters IV Catheter Type (from Nrsg): PICC Line Fierro in Place (from Nrsg): Yes Assessment/Plan Chief Complaint/Hosp Course IMPRESSION: Respiratory failure. SP Tracheostomy will continue vent support Pul toilet Problems: Subjective 24 Hr Interval Summary Constitutional: improved Pain Control: mild Exam/Review of Systems Vital Signs Vitals Vital Signs Date Time Temp Pulse Resp B/P Pulse Ox O2 Delivery O2 Flow Rate FiO2 11/03/17 14:30 97 139/79 98 Mechanical Ventilator 11/03/17 13:30 16 11/03/17 12:00 99.3 11/03/17 11:20 40 Intake and Output 11/02/17 11/02/17 11/03/17 15:00 23:00 07:00 Intake Total 557.0 ml 892.53 ml 1368.5 ml Output Total 445 ml 405 ml 960 ml Balance 112.0 ml 487.53 ml 408.5 ml Exam ENMT: mucosa pink and moist, nl external ears & nose, nl lips & teeth, nl nasal mucosa & septum Neck: non-tender, supple Respiratory: clear to auscultation, normal air movement Cardiovascular: nl pulses, regular rate and rhythm Results Result Diagram: 11/03/17 0509 11/03/17 0509 DRISS JIMENEZ MD Nov 03, 2017 15:09
[2017-11-03] MEDS ORDERED: WARFARIN 10 MG TAB PO SCH (17:00)
[2017-11-03] MEDS ORDERED: FUROSEMIDE 40 MG TAB PO SCH (18:00)
[2017-11-03] MEDS: FAMOTIDINE 20 MG TAB GTB SCH (21:16)
[2017-11-04] VITALS (42 sets, daily range): BP systolic 101–169; BP diastolic 37–114; PULSE 80–102; RESP 12–25
[2017-11-04] MEDS: ACCU-CHEK XX SCH (02:00)
[2017-11-04] MEDS: FENTAnyl (DRIP) 1000 mcg/100mL 100 ML IV SCH ×3 (02:11→21:24)
[2017-11-04] MEDS: LORAZEPAM 2 MG INJ IV PRN ×4 (04:13→23:56)
[2017-11-04] MEDS: DEXTROSE 5% 1,000 ML IV SCH (05:03)
[2017-11-04] MEDS: LACTULOSE 30ML CUP PO SCH (06:00)
[2017-11-04] MEDS: INSULIN ASPART [NOVOLOG] 3 ML PEN SC SCH ×3 (06:00→21:29)
[2017-11-04] MEDS: FUROSEMIDE 40 MG INJ IV SCH ×2 (06:12→17:44)
[2017-11-04] MEDS: PANTOPRAZOLE 40 MG INJ IV SCH (06:12)
[2017-11-04] MEDS: MIDAZOLAM (DRIP) 50 mg/50 mL 50 ML IV SCH ×2 (06:23→18:39)
[2017-11-04 06:30] LABS: INR 1.18; PROTIME 15.2 Sec (11.9-14.9); PT RATIO 1.2
[2017-11-04 06:30] LABS: BASOPHIL # 0.1 10^3/ul (0.0-0.1); BASOPHILS % 0.8 % (0.0-2.0); EOSINOPHILS # 0.4 10^3/ul (0.0-0.5); HEMATOCRIT 35.2 % (42.0-52.0); HEMOGLOBIN 10.6 g/dl (14.0-18.0); LYMPHOCYTES # 2.7 10^3/ul (0.8-2.9); LYMPHOCYTES % 22.3 % (15.0-51.0); MEAN CORPUSCULAR HEMOGLOBIN 24.8 pg (29.0-33.0); MEAN CORPUSCULAR HGB CONC 30.1 g/dl (32.0-37.0); MEAN CORPUSCULAR VOLUME 82.2 fl (82.0-101.0); MONOCYTE # 1.2 10^3/ul (0.3-0.9); MONOCYTES % 10.1 % (0.0-11.0); NEUTROPHIL # 7.7 10^3/ul (1.6-7.5); NEUTROPHILS % 62.8 % (39.0-77.0); PLATELET COUNT 464 10^3/UL (140-415); RED BLOOD COUNT 4.28 10^6/ul (4.70-6.10); RED CELL DISTRIBUTION WIDTH 17.9 % (11.5-14.5); WHITE BLOOD COUNT 12.3 10^3/ul (4.8-10.8)
[2017-11-04 06:41] LABS: CALCIUM 8.8 mg/dl (8.4-10.2); CREATININE 0.8 mg/dl (0.61-1.24); POTASSIUM 3.2 mmol/L (3.5-5.1)
[2017-11-04] MEDS: DOCUSATE SODIUM 10 MG/ML (10ML CUP) GTB SCH ×2 (09:00→20:24)
[2017-11-04] MEDS: POLYETHYLENE GLYCOL 17 GM PACKET NGT SCH (09:00)
[2017-11-04] MEDS: EUCERIN 113 GM CR TOP SCH ×2 (09:14→20:25)
[2017-11-04] MEDS: TRIAMCINOLONE ACET 0.1% 15 GM OINT TOP SCH ×2 (09:14→20:25)
[2017-11-04] MEDS: ENOXAPARIN 40 MG/0.4 ML SYG SC SCH (09:15)
--- NOTE | 2017-11-04 11:17 | PN ---
Date/Time of Note Date/Time of Note DATE: 11/04/17 TIME: 10:47 Assessment/Plan VTE Prophylaxis VTE Prophylaxis Intervention: LMWH Lines/Catheters IV Catheter Type (from Nrs): PICC Line Central line still needed: Yes Urinary Cath still in place: Yes Reason Cath still needed: urinary retention Assessment/Plan Chief Complaint/Hosp Course S: Patient with PEG and trach now. O: VS (see below) PE: Lying in bed, NAD Supple distant lung sounds distant heart sounds no rashes LE unchanged Assessment/Plan: 47 yo M with super morbid obesity, DM presented to SOB intubated initially for airway protection in setting of CO2 narcosis , now s/p trach/PEG placement. 1. SOB/res failure: Acute on chronic hypercapnic respiratory failure. Pulmonary edema and pneumonia - ruled out for acute OH during this hospital stay. S/P abx tx as well. -continue trach, follow pulmonary recommendations -Continue diuretics for now (lasix IV BID), will check BNP as well -Try to wean sedation as tolerated -We will get PT eval as well for at a minimum any bedside therapy that can be performed 2. possible DVT/ PE?: Lower extremity ultrasounds results on 10/15/17 were inconclusive. Patient apparently too large to fit in CT scanner, so CTA not able to be performed, neither VQ scan. Had been on LMWH treatment dose but GI recommends against this now given the fact that patient has antral ulcer, although nonbleeding. Patient also previously this admission had some ET tube bleeding when he was intubated at that time, although none presently. -For now continue low molecular weight heparin 40 mg subcu daily for DVT prophylaxis, monitor carefully for any signs of bleeding, consider SCDs as well instead. -will recheck lower extremity Dopplers today to see if there is any evidence of DVT. -again we are holding treatment dose anticoagulation given the fact of antral ulcer present and because of inconclusive study results at this point for any DVT or PE present. -Will need larger machine (likely as an outpatient) to determine if there is pulmonary embolism present. If it is determined, however, that patient would need anticoagulation for DVT or PE treatment as an outpatient, would strongly recommend against Coumadin as outpatient given patient's history of noncompliance. Instead, per discussion with pharmacy and pulmonary teams 2 weeks ago, if patient able to be extubated and take oral medicines, would recommend transition to either Eliquis or Xarelto at that time instead, b/c per pharmacy, even though apparently not recommended to use NOAC if BMI >40, recent studies do indicate checking drug specific peak and trough levels for these medicines if having to use DOAC in patients with BMI greater than 40. Given this patient's history of noncompliance, DOAC would likely be more beneficial to this patient versus Coumadin as an outpatient. 3. LE wounds: Continue wound care per wound care team. 4. DM2: cont SSI as needed 5. hypernatremia - resolved -Monitor BMP in the a.m. will DC D5W IV fluids CM cs in place for LTAC eval WEAN SEDATION critical care time: 45 minutes Problems: Exam/Review of Systems Vital Signs Vitals Vital Signs Date Time Temp Pulse Resp B/P Pulse Ox O2 Delivery O2 Flow Rate FiO2 11/04/17 08:00 50 11/04/17 08:00 95 11/04/17 08:00 99.9 21 131/67 94 Mechanical Ventilator Intake and Output 11/03/17 11/03/17 11/04/17 15:00 23:00 07:00 Intake Total 1412.0 ml 1236.5 ml 1294.0 ml Output Total 4030 ml 445 ml 305 ml Balance -2618.0 ml 791.5 ml 989.0 ml Results Result Diagram: 11/04/17 0500 11/04/17 0530 Results 24 hrs Laboratory Tests Test 11/03/17 13:14 11/03/17 21:59 11/04/17 05:00 11/04/17 05:30 Bedside Glucose 110 107 White Blood Count 12.3 H Red Blood Count 4.28 L Hemoglobin 10.6 L Hematocrit 35.2 L Mean Corpuscular Volume 82.2 Mean Corpuscular Hemoglobin 24.8 L Mean Corpuscular Hemoglobin Concent 30.1 L Red Cell Distribution Width 17.9 H Platelet Count 464 H Mean Platelet Volume 11.0 H Neutrophils % 62.8 Lymphocytes % 22.3 Monocytes % 10.1 Eosinophils % 3.0 Basophils % 0.8 Nucleated Red Blood Cells % 0.0 Neutrophils # 7.7 H Lymphocytes # 2.7 Monocytes # 1.2 H Eosinophils # 0.4 Basophils # 0.1 Nucleated Red Blood Cells # 0.0 Prothrombin Time 15.2 H Prothrombin Time Ratio 1.2 INR International Normalized Ratio 1.18 Sodium Level 144 Potassium Level 3.2 L Chloride Level 98 Carbon Dioxide Level 38 H Anion Gap 11 Blood Urea Nitrogen 11 Creatinine 0.80 Glucose Level 111 Calcium Level 8.8 Test 11/04/17 06:19 Bedside Glucose 110 Medications Medications Current Medications Ondansetron HCl (Zofran Inj) 4 mg Q6H PRN IV NAUSEA AND/OR VOMITING Last administered on 11/02/17 13:46; Admin Dose 4 MG; Start 10/14/17 at 21:30 Nitroglycerin (Nitroglycerin (Sl Tab) 0.4 Mg) 1 tab Q5M PRN SL CHEST PAIN; Start 10/14/17 at 21:30 Acetaminophen (Tylenol Tab) 650 mg Q6H PRN PO PAIN LEVEL 1-3 OR FEVER Last administered on 11/02/17 18:35; Admin Dose 650 MG; Start 10/14/17 at 21:30 Morphine Sulfate (morphine) 2 mg Q4H PRN IV PAIN LEVEL 7-10 Last administered on 11/01/17 20:31; Admin Dose 2 MG; Start 10/16/17 at 00:00 Multi-Ingredient Ointment (Eucerin Cream) 1 applic BID TOP Last administered on 11/04/17 09:14; Admin Dose 1 APPLIC; Start 10/16/17 at 09:00 Triamcinolone Acetonide (Kenalog 0.1% Oint) 1 applic BID TOP Last administered on 11/04/17 09:14; Admin Dose 1 APPLIC; Start 10/16/17 at 14:00 Famotidine 20 mg 20 mg HS GTB Last administered on 11/03/17 21:16; Admin Dose 20 MG; Start 10/17/17 at 21:00 Fentanyl (Sublimaze) 100 ml @ 2.5 mls/hr TITRATE IV Last administered on 02:11; Admin Dose 10 MLS/HR; Start 10/18/17 at 10:00 Lorazepam (Ativan) 2 mg Q4H PRN IV AGITATION Last administered on 11/04/17 04: 13; Admin Dose 2 MG; Start 10/18/17 at 21:00 Diagnostic Test (Pha) (Accu-Chek) 1 ea 02 XX Last administered on 10/31/17 01 :31; Admin Dose 1 EA; Start 10/20/17 at 02:00 Miscellaneous Information 1 ea NOTE XX ; Start 10/19/17 at 18:00 Glucose (Glutose) 15 gm Q15M PRN PO DECREASED GLUCOSE; Start 10/19/17 at 18:00 Glucose (Glutose) 22.5 gm Q15M PRN PO DECREASED GLUCOSE; Start 10/19/17 at 18: 00 Dextrose (D50w Syringe) 25 ml Q15M PRN IV DECREASED GLUCOSE; Start 10/19/17 at 18:00 Dextrose (D50w Syringe) 50 ml Q15M PRN IV DECREASED GLUCOSE; Start 10/19/17 at 18:00 Glucagon (Glucagen) 1 mg Q15M PRN IM DECREASED GLUCOSE; Start 10/19/17 at 18: 00 Glucose 15 gm 15 gm Q15M PRN BUCCAL DECREASED GLUCOSE; Start 10/19/17 at 18:00 Midazolam HCl (Versed) 50 ml @ 1 mls/hr TITRATE IV Last administered on 06:23; Admin Dose 4 MLS/HR; Start 10/21/17 at 09:30 IV Flush (NS 10 ml) 10 ml PRN PRN IV IV PROTOCOL; Start 10/22/17 at 19:00 Insulin Aspart (Novolog Insulin Pen) NOVOLOG *MILD* ALGORI... Q8 SC ; Start at 22:00 Docusate Sodium (Colace Liquid Cup) 100 mg BID GTB Last administered on 21:20; Admin Dose 100 MG; Start 10/24/17 at 21:00 Polyethylene Glycol (Miralax) 17 gm DAILY NGT Last administered on 10/31/17 09:22; Admin Dose 17 GM; Start 10/24/17 at 21:00 Lactulose (Enulose) 20 gm Q8 PO Last administered on 11/02/17 21:23; Admin Dose 20 GM; Start 10/30/17 at 14:30 Pantoprazole (Protonix Iv) 40 mg BID@06,18 IV Last administered on 11/04/17 06 :12; Admin Dose 40 MG; Start 11/02/17 at 18:00 Enoxaparin Sodium (Lovenox) 40 mg DAILY SC Last administered on 11/04/17 09:15 ; Admin Dose 40 MG; Start 11/04/17 at 09:00 DOLLY ESCOBEDO Nov 04, 2017 11:06
--- NOTE | 2017-11-04 11:21 | PN ---
Date/Time of Note Date/Time of Note DATE: 11/04/17 TIME: 11:16 Assessment/Plan VTE Prophylaxis VTE Prophylaxis Intervention: SCD's Lines/Catheters IV Catheter Type (from Nrs): PICC Line Central line still needed: Yes (meds) Urinary Cath still in place: Yes Reason Cath still needed: other (indicate) (monitor output) Assessment/Plan Chief Complaint/Hosp Course Chief Complaint/Hosp Course Assessment: Feeding difficulty Post uneventful PEG Incidental finding reactive antral gastric ulcer Respiratory failure/post tracheostomy/Ventilator dependent Suspected pulmonary embolism Morbid obesity Plan: Continue TF as tolerated Increase goal rate to 50ml/hr PEG care Patient seen in collaboration with Dr. Joseph Subjective: Course reviewed with nursing staff Patient interviewed and examined All labs, imaging and other results reviewed Patient currently stable, tolerating TF well, will increase goal rate to 50ml/hr Pt will loose stools was on MiraLax and Lactulose, both have been stopped Of note the patient has an active antral gastric ulceration and anticoagulation obviously increases the risk of bleeding If anticoagulation is absolutely necessary for contraindication as relative Exam: General: well developed, well nourished, obese, intubated and basically unresponsive Skin: No lesions, no stigmata chronic liver disease, no evidence of bleeding diathesis Lymphatic: No palpable lymphadenopathy HEENT: No lesions Neck: Post tracheostomy Cardiovascular: Heart: Regular rate and rhythm, no murmurs, gallops or rubs. Peripheral pulses present within normal limits, no cyanosis, clubbing or edemas. No pulsatile abdominal mass Respiratory: Lungs clear to auscultation and percussion, no wheezing, no rubs Gastrointestinal and Liver: Abdomen: Soft return in place. Soft, non tenderness , not distended, no hernias, no masses, no organomegaly, no ascites, no guarding , no rebound tenderness, normoactive bowel sounds. Extremities: No cyanosis, clubbing, or edema. Diagnostic Studies: Available data and images were reviewed personally. See reports. Significant results and findings are addressed here or in the assessment and plan. Problems: Exam/Review of Systems Vital Signs Vitals Vital Signs Date Time Temp Pulse Resp B/P Pulse Ox O2 Delivery O2 Flow Rate FiO2 11/04/17 08:00 50 11/04/17 08:00 95 11/04/17 08:00 99.9 21 131/67 94 Mechanical Ventilator Intake and Output 11/03/17 11/03/17 11/04/17 14:59 22:59 06:59 Intake Total 1415.0 ml 1238 ml 1436.5 ml Output Total 4030 ml 1000 ml 350 ml Balance -2615.0 ml 238 ml 1086.5 ml Results Result Diagram: 11/04/17 0500 11/04/17 0530 Results 24 hrs Laboratory Tests Test 11/03/17 13:14 11/03/17 21:59 11/04/17 05:00 11/04/17 05:30 Bedside Glucose 110 107 White Blood Count 12.3 H Red Blood Count 4.28 L Hemoglobin 10.6 L Hematocrit 35.2 L Mean Corpuscular Volume 82.2 Mean Corpuscular Hemoglobin 24.8 L Mean Corpuscular Hemoglobin Concent 30.1 L Red Cell Distribution Width 17.9 H Platelet Count 464 H Mean Platelet Volume 11.0 H Neutrophils % 62.8 Lymphocytes % 22.3 Monocytes % 10.1 Eosinophils % 3.0 Basophils % 0.8 Nucleated Red Blood Cells % 0.0 Neutrophils # 7.7 H Lymphocytes # 2.7 Monocytes # 1.2 H Eosinophils # 0.4 Basophils # 0.1 Nucleated Red Blood Cells # 0.0 Prothrombin Time 15.2 H Prothrombin Time Ratio 1.2 INR International Normalized Ratio 1.18 Sodium Level 144 Potassium Level 3.2 L Chloride Level 98 Carbon Dioxide Level 38 H Anion Gap 11 Blood Urea Nitrogen 11 Creatinine 0.80 Glucose Level 111 Calcium Level 8.8 Test 11/04/17 06:19 Bedside Glucose 110 Medications Medications Current Medications Ondansetron HCl (Zofran Inj) 4 mg Q6H PRN IV NAUSEA AND/OR VOMITING Last administered on 11/02/17 13:46; Admin Dose 4 MG; Start 10/14/17 at 21:30 Nitroglycerin (Nitroglycerin (Sl Tab) 0.4 Mg) 1 tab Q5M PRN SL CHEST PAIN; Start 10/14/17 at 21:30 Acetaminophen (Tylenol Tab) 650 mg Q6H PRN PO PAIN LEVEL 1-3 OR FEVER Last administered on 11/02/17 18:35; Admin Dose 650 MG; Start 10/14/17 at 21:30 Morphine Sulfate (morphine) 2 mg Q4H PRN IV PAIN LEVEL 7-10 Last administered on 11/01/17 20:31; Admin Dose 2 MG; Start 10/16/17 at 00:00 Multi-Ingredient Ointment (Eucerin Cream) 1 applic BID TOP Last administered on 11/04/17 09:14; Admin Dose 1 APPLIC; Start 10/16/17 at 09:00 Triamcinolone Acetonide (Kenalog 0.1% Oint) 1 applic BID TOP Last administered on 11/04/17 09:14; Admin Dose 1 APPLIC; Start 10/16/17 at 14:00 Famotidine 20 mg 20 mg HS GTB Last administered on 11/03/17 21:16; Admin Dose 20 MG; Start 10/17/17 at 21:00 Fentanyl (Sublimaze) 100 ml @ 2.5 mls/hr TITRATE IV Last administered on 11:09; Admin Dose 10 MLS/HR; Start 10/18/17 at 10:00 Lorazepam (Ativan) 2 mg Q4H PRN IV AGITATION Last administered on 11/04/17 04: 13; Admin Dose 2 MG; Start 10/18/17 at 21:00 Diagnostic Test (Pha) (Accu-Chek) 1 ea 02 XX Last administered on 10/31/17 01 :31; Admin Dose 1 EA; Start 10/20/17 at 02:00 Miscellaneous Information 1 ea NOTE XX ; Start 10/19/17 at 18:00 Glucose (Glutose) 15 gm Q15M PRN PO DECREASED GLUCOSE; Start 10/19/17 at 18:00 Glucose (Glutose) 22.5 gm Q15M PRN PO DECREASED GLUCOSE; Start 10/19/17 at 18: 00 Dextrose (D50w Syringe) 25 ml Q15M PRN IV DECREASED GLUCOSE; Start 10/19/17 at 18:00 Dextrose (D50w Syringe) 50 ml Q15M PRN IV DECREASED GLUCOSE; Start 10/19/17 at 18:00 Glucagon (Glucagen) 1 mg Q15M PRN IM DECREASED GLUCOSE; Start 10/19/17 at 18: 00 Glucose 15 gm 15 gm Q15M PRN BUCCAL DECREASED GLUCOSE; Start 10/19/17 at 18:00 Midazolam HCl (Versed) 50 ml @ 1 mls/hr TITRATE IV Last administered on 06:23; Admin Dose 4 MLS/HR; Start 10/21/17 at 09:30 IV Flush (NS 10 ml) 10 ml PRN PRN IV IV PROTOCOL; Start 10/22/17 at 19:00 Insulin Aspart (Novolog Insulin Pen) NOVOLOG *MILD* ALGORI... Q8 SC ; Start at 22:00 Docusate Sodium (Colace Liquid Cup) 100 mg BID GTB Last administered on 21:20; Admin Dose 100 MG; Start 10/24/17 at 21:00 Pantoprazole (Protonix Iv) 40 mg BID@,18 IV Last administered on 11/04/17 06 :12; Admin Dose 40 MG; Start 11/02/17 at 18:00 Enoxaparin Sodium (Lovenox) 40 mg DAILY SC Last administered on 11/04/17 09:15 ; Admin Dose 40 MG; Start 11/04/17 at 09:00 VIJAYA CONCEPCION Nov 04, 2017 11:21
--- NOTE | 2017-11-04 11:38 | CONS ---
Date/Time of Note Date/Time of Note DATE: 11/04/17 TIME: 11:36 Consult Date/Type/Reason Admit Date/Time Oct 14, 2017 at 20:55 Type of Consultation: Pulmonary/CCM Subjective Patient continues on fentanyl and Versed. Significant agitation off both of these. Objective Vital Signs Date Time Temp Pulse Resp B/P Pulse Ox O2 Delivery O2 Flow Rate FiO2 11/04/17 11:00 94 12 145/90 100 Mechanical Ventilator 11/04/17 08:00 50 11/04/17 08:00 99.9 Intake and Output 11/03/17 11/03/17 11/04/17 15:00 23:00 07:00 Intake Total 1412.0 ml 1236.5 ml 1294.0 ml Output Total 4030 ml 445 ml 305 ml Balance -2618.0 ml 791.5 ml 989.0 ml Exam GENERAL: Morbidly obese gentleman on mechanical ventilation via tracheostomy edema +3 VITAL SIGNS: per chart NECK: Supple. No JVD or lymphadenopathy. CARDIAC EXAM: S1, S2. No added sounds or murmurs. CHEST: clear bilaterally, No added sounds, rales or wheezes ABDOMEN: Soft, nontender. No guarding or rebound. EXTREMITIES: No cyanosis, clubbing edema +3 NEUROLOGIC: Generalized weakness. No focal deficits. Results/Medications Result Diagram: 11/04/17 0500 11/04/17 0530 Results 24 hrs Laboratory Tests Test 11/03/17 13:14 11/03/17 21:59 11/04/17 05:00 11/04/17 05:30 Bedside Glucose 110 107 White Blood Count 12.3 H Red Blood Count 4.28 L Hemoglobin 10.6 L Hematocrit 35.2 L Mean Corpuscular Volume 82.2 Mean Corpuscular Hemoglobin 24.8 L Mean Corpuscular Hemoglobin Concent 30.1 L Red Cell Distribution Width 17.9 H Platelet Count 464 H Mean Platelet Volume 11.0 H Neutrophils % 62.8 Lymphocytes % 22.3 Monocytes % 10.1 Eosinophils % 3.0 Basophils % 0.8 Nucleated Red Blood Cells % 0.0 Neutrophils # 7.7 H Lymphocytes # 2.7 Monocytes # 1.2 H Eosinophils # 0.4 Basophils # 0.1 Nucleated Red Blood Cells # 0.0 Prothrombin Time 15.2 H Prothrombin Time Ratio 1.2 INR International Normalized Ratio 1.18 Sodium Level 144 Potassium Level 3.2 L Chloride Level 98 Carbon Dioxide Level 38 H Anion Gap 11 Blood Urea Nitrogen 11 Creatinine 0.80 Glucose Level 111 Calcium Level 8.8 Test 11/04/17 06:19 Bedside Glucose 110 Medications Current Medications Ondansetron HCl (Zofran Inj) 4 mg Q6H PRN IV NAUSEA AND/OR VOMITING Last administered on 11/02/17 13:46; Admin Dose 4 MG; Start 10/14/17 at 21:30 Nitroglycerin (Nitroglycerin (Sl Tab) 0.4 Mg) 1 tab Q5M PRN SL CHEST PAIN; Start 10/14/17 at 21:30 Acetaminophen (Tylenol Tab) 650 mg Q6H PRN PO PAIN LEVEL 1-3 OR FEVER Last administered on 11/02/17 18:35; Admin Dose 650 MG; Start 10/14/17 at 21:30 Morphine Sulfate (morphine) 2 mg Q4H PRN IV PAIN LEVEL 7-10 Last administered on 11/01/17 20:31; Admin Dose 2 MG; Start 10/16/17 at 00:00 Multi-Ingredient Ointment (Eucerin Cream) 1 applic BID TOP Last administered on 11/04/17 09:14; Admin Dose 1 APPLIC; Start 10/16/17 at 09:00 Triamcinolone Acetonide (Kenalog 0.1% Oint) 1 applic BID TOP Last administered on 11/04/17 09:14; Admin Dose 1 APPLIC; Start 10/16/17 at 14:00 Famotidine 20 mg 20 mg HS GTB Last administered on 11/03/17 21:16; Admin Dose 20 MG; Start 10/17/17 at 21:00 Fentanyl (Sublimaze) 100 ml @ 2.5 mls/hr TITRATE IV Last administered on 11:09; Admin Dose 10 MLS/HR; Start 10/18/17 at 10:00 Lorazepam (Ativan) 2 mg Q4H PRN IV AGITATION Last administered on 11/04/17 04: 13; Admin Dose 2 MG; Start 10/18/17 at 21:00 Diagnostic Test (Pha) (Accu-Chek) 1 ea 02 XX Last administered on 10/31/17 01 :31; Admin Dose 1 EA; Start 10/20/17 at 02:00 Miscellaneous Information 1 ea NOTE XX ; Start 10/19/17 at 18:00 Glucose (Glutose) 15 gm Q15M PRN PO DECREASED GLUCOSE; Start 10/19/17 at 18:00 Glucose (Glutose) 22.5 gm Q15M PRN PO DECREASED GLUCOSE; Start 10/19/17 at 18: 00 Dextrose (D50w Syringe) 25 ml Q15M PRN IV DECREASED GLUCOSE; Start 10/19/17 at 18:00 Dextrose (D50w Syringe) 50 ml Q15M PRN IV DECREASED GLUCOSE; Start 10/19/17 at 18:00 Glucagon (Glucagen) 1 mg Q15M PRN IM DECREASED GLUCOSE; Start 10/19/17 at 18: 00 Glucose 15 gm 15 gm Q15M PRN BUCCAL DECREASED GLUCOSE; Start 10/19/17 at 18:00 Midazolam HCl (Versed) 50 ml @ 1 mls/hr TITRATE IV Last administered on 06:23; Admin Dose 4 MLS/HR; Start 10/21/17 at 09:30 IV Flush (NS 10 ml) 10 ml PRN PRN IV IV PROTOCOL; Start 10/22/17 at 19:00 Insulin Aspart (Novolog Insulin Pen) NOVOLOG *MILD* ALGORI... Q8 SC ; Start at 22:00 Docusate Sodium (Colace Liquid Cup) 100 mg BID GTB Last administered on 21:20; Admin Dose 100 MG; Start 10/24/17 at 21:00 Pantoprazole (Protonix Iv) 40 mg BID@06,18 IV Last administered on 11/04/17 06 :12; Admin Dose 40 MG; Start 11/02/17 at 18:00 Enoxaparin Sodium (Lovenox) 40 mg DAILY SC Last administered on 11/04/17 09:15 ; Admin Dose 40 MG; Start 11/04/17 at 09:00 Assessment/Plan Chief Complaint/Hosp Course IMP: 1. Acute on chronic hypercapnic respiratory failure/Failure to wean--s/p trach 2. HFpEF 3. Likely JANA/OHS 4. Possible thromboembolic disease 5. HyperNa+ PLAN: 1. Try SIMV with PS 3. Bronchodilators/trach care 4. Change diuresis to lasix 40 IV BID 5. Deep venous thrombosis and gastrointestinal prophylaxis. 6. Decrease sedation as tolerated. Problems: BRIGETTE CODY MD, [facility] Nov 04, 2017 11:38
--- NOTE | 2017-11-04 12:36 | RADRPT ---
PROCEDURE: US bilateral lower extremity veins. CLINICAL INDICATION: Bilateral leg pain and swelling. TECHNIQUE: Multiple longitudinal and transverse images of the bilateral lower extremity veins were obtained with nunn scale and color Doppler imaging. The common femoral vein, femoral vein, and popl iteal vein were evaluated. 2D grayscale measurements with compression sonography, color Doppler, and pulsed Doppler with augmentation. COMPARISON: No prior studies are available for comparison. FINDINGS: The bilateral common femoral, femoral and popliteal veins are normally compressible throughout. Col or flow demonstrates normal filling of the vessels. Normal waveforms are visualized and there is no rmal response to augmentation. IMPRESSION: 1. No evidence of deep vein thrombosis involving either lower extremity. RPTAT: QQ .Finn Santiago MD, MD Date Time Electronically viewed and signed by .Finn Santiago MD, on 11/04/2017 12:36 .R/
[2017-11-04 12:56] LABS: ADD UMIC YES; UR ASCORBIC ACID NEGATIVE (NEGATIVE); UR BACTERIA FEW /HPF (NONE SEEN); UR BILIRUBIN (Dip) NEGATIVE (NEGATIVE); UR BLOOD (Dip) 2+ mg/dL (NEGATIVE); UR CLARITY CLEAR (CLEAR); UR COLOR AMBER (YELLOW); UR GLUCOSE (Dip) NEGATIVE (NEGATIVE); UR KETONES (Dip) NEGATIVE (NEGATIVE); UR LEUKOCYTE ESTERASE (Dip) NEGATIVE Leu/ul (NEGATIVE); UR MUCUS FEW /HPF (NONE SEEN); UR NITRITE (Dip) NEGATIVE (NEGATIVE); UR RBC 117 /HPF (0-5); UR SPECIFIC GRAVITY (Dip) 1.021 (1.003-1.030); UR TOTAL PROTEIN (Dip) 2+ mg/dl (NEGATIVE); UR UROBILINOGEN (Dip) 2+ mg/dL (NEGATIVE)
[2017-11-04] MEDS: LANSOPRAZOLE 30 MG CAP GTB SCH (17:44)
[2017-11-04] MEDS: FAMOTIDINE 20 MG TAB GTB SCH (20:24)
--- NOTE | 2017-11-04 21:05 | PN ---
Date/Time of Note Date/Time of Note DATE: 11/04/17 TIME: 21:04 Assessment/Plan Lines/Catheters IV Catheter Type (from Nrsg): PICC Line Fierro in Place (from Nrsg): Yes Assessment/Plan Chief Complaint/Hosp Course IMPRESSION: Respiratory failure. SP Tracheostomy will continue vent support Pul toilet Problems: Subjective 24 Hr Interval Summary Constitutional: improved Pain Control: mild Exam/Review of Systems Vital Signs Vitals Vital Signs Date Time Temp Pulse Resp B/P Pulse Ox O2 Delivery O2 Flow Rate FiO2 11/04/17 21:01 93 18 97 40 11/04/17 20:00 144/80 Mechanical Ventilator 11/04/17 19:00 98.9 Intake and Output 11/03/17 11/03/17 11/04/17 14:59 22:59 06:59 Intake Total 1415.0 ml 1238 ml 1436.5 ml Output Total 4030 ml 1000 ml 350 ml Balance -2615.0 ml 238 ml 1086.5 ml Exam ENMT: mucosa pink and moist, nl external ears & nose, nl lips & teeth, nl nasal mucosa & septum Neck: non-tender, supple Respiratory: clear to auscultation, normal air movement Cardiovascular: nl pulses, regular rate and rhythm Results Result Diagram: 11/04/17 0500 11/04/17 0530 DRISS JIMENEZ MD Nov 04, 2017 21:05
[2017-11-05] VITALS (49 sets, daily range): BP systolic 109–157; BP diastolic 60–109; PULSE 82–120; RESP 14–28
[2017-11-05] MEDS: ACCU-CHEK XX SCH (01:21)
[2017-11-05] MEDS: MIDAZOLAM (DRIP) 50 mg/50 mL 50 ML IV SCH (02:29)
[2017-11-05] MEDS: LORAZEPAM 2 MG INJ IV PRN ×5 (05:27→22:23)
[2017-11-05] MEDS: FUROSEMIDE 40 MG INJ IV SCH ×2 (05:27→17:29)
[2017-11-05] MEDS: LANSOPRAZOLE 30 MG CAP GTB SCH ×2 (05:27→17:29)
[2017-11-05] MEDS: INSULIN ASPART [NOVOLOG] 3 ML PEN SC SCH ×3 (05:38→21:35)
[2017-11-05 06:50] LABS: BASOPHIL # 0.1 10^3/ul (0.0-0.1); BASOPHILS % 0.8 % (0.0-2.0); EOSINOPHILS # 0.3 10^3/ul (0.0-0.5); EOSINOPHILS % 3.1 % (0.0-7.0); HEMATOCRIT 34.8 % (42.0-52.0); HEMOGLOBIN 10.7 g/dl (14.0-18.0); LYMPHOCYTES # 2.3 10^3/ul (0.8-2.9); LYMPHOCYTES % 21.4 % (15.0-51.0); MEAN CORPUSCULAR HEMOGLOBIN 25.1 pg (29.0-33.0); MEAN CORPUSCULAR HGB CONC 30.7 g/dl (32.0-37.0); MEAN CORPUSCULAR VOLUME 81.5 fl (82.0-101.0); MONOCYTE # 1.1 10^3/ul (0.3-0.9); MONOCYTES % 10.3 % (0.0-11.0); NEUTROPHIL # 6.7 10^3/ul (1.6-7.5); NEUTROPHILS % 63.4 % (39.0-77.0); PLATELET COUNT 449 10^3/UL (140-415); RED BLOOD COUNT 4.27 10^6/ul (4.70-6.10); RED CELL DISTRIBUTION WIDTH 17.6 % (11.5-14.5); WHITE BLOOD COUNT 10.6 10^3/ul (4.8-10.8)
[2017-11-05 07:04] LABS: MAGNESIUM 1.6 mg/dl (1.7-2.5); PHOSPHORUS 5.5 mg/dl (2.5-4.9)
[2017-11-05 07:17] LABS: CALCIUM 8.7 mg/dl (8.4-10.2); CREATININE 0.78 mg/dl (0.61-1.24); POTASSIUM 3.8 mmol/L (3.5-5.1)
[2017-11-05] MEDS: FENTAnyl (DRIP) 1000 mcg/100mL 100 ML IV SCH (08:47)
[2017-11-05] MEDS: DOCUSATE SODIUM 10 MG/ML (10ML CUP) GTB SCH ×2 (09:00→20:20)
[2017-11-05] MEDS: ENOXAPARIN 40 MG/0.4 ML SYG SC SCH (09:13)
[2017-11-05] MEDS: TRIAMCINOLONE ACET 0.1% 15 GM OINT TOP SCH ×2 (09:14→20:25)
[2017-11-05] MEDS: EUCERIN 113 GM CR TOP SCH ×2 (09:14→20:25)
--- NOTE | 2017-11-05 09:48 | PN ---
Date/Time of Note Date/Time of Note DATE: 11/05/17 TIME: 09:43 Assessment/Plan VTE Prophylaxis VTE Prophylaxis Intervention: LMWH Lines/Catheters IV Catheter Type (from Nrs): PICC Line Central line still needed: Yes Urinary Cath still in place: Yes Reason Cath still needed: urinary retention Assessment/Plan Chief Complaint/Hosp Course S: Seen by pulmonary and GI teams yesterday, no acute events overnight. Did get lower extremity Dopplers performed negative for DVT. O: VS (see below) PE: Lying in bed, NAD Supple distant lung sounds distant heart sounds no rashes LE unchanged Assessment/Plan: 47 yo M with super morbid obesity, DM presented to SOB intubated initially for airway protection in setting of CO2 narcosis, now s/p trach/PEG placement. 1. SOB/res failure: Acute on chronic hypercapnic respiratory failure. Pulmonary edema and pneumonia S/P abx tx as well - ruled out for acute [place] during this hospital stay. -continue trach, follow pulmonary recommendations -Continue diuretics for now (lasix IV BID) -Try to wean sedation as tolerated -Follow-up PT eval as well 2. possible DVT/ PE?: Lower extremity ultrasounds results on 10/15/17 were inconclusive. Patient apparently too large to fit in CT scanner, so CTA not able to be performed. Had been on LMWH treatment dose but GI recommends against this now given the fact that patient has antral ulcer, although nonbleeding. Patient also previously this admission had some ET tube bleeding while on anticoagulation when he was intubated at that time, although none presently. -For now continue low molecular weight heparin 40 mg subcu daily for DVT prophylaxis, monitor carefully for any signs of bleeding, consider SCDs as well instead. -again we are holding treatment dose anticoagulation given the fact of antral ulcer present and because of inconclusive study results at this point for any DVT or PE present. -Will need larger machine (likely as an outpatient) to determine if there is pulmonary embolism present. If it is determined, however, that patient would need anticoagulation for DVT or PE treatment as an outpatient, would recommend against Coumadin as outpatient given patient's history of noncompliance. Instead , per discussion with pharmacy and pulmonary teams 2 weeks ago, if patient able to be extubated and take oral medicines, would recommend transition to either Eliquis or Xarelto at that time instead, b/c per pharmacy, even though apparently not recommended to use NOAC if BMI >40, recent studies do indicate checking drug specific peak and trough levels on occasion for these medicines if having to use DOAC in patients with BMI greater than 40. Given this patient' s history of noncompliance, DOAC would likely be more beneficial to this patient versus Coumadin as an outpatient. 3. LE wounds: Continue wound care per wound care team. 4. DM2: cont SSI as needed 5. hypernatremia - resolved -Monitor 6. Antral ulcer: Nonbleeding - continue Pepcid twice daily, follow GI recommendations CM cs in place for LTAC eval WEAN SEDATION critical care time: 45 minutes Problems: Exam/Review of Systems Vital Signs Vitals Vital Signs Date Time Temp Pulse Resp B/P Pulse Ox O2 Delivery O2 Flow Rate FiO2 11/05/17 06:06 81 18 95 40 11/05/17 05:00 110/63 11/05/17 04:00 98.6 11/05/17 03:00 Mechanical Ventilator Intake and Output 11/04/17 11/04/17 11/05/17 15:00 23:00 07:00 Intake Total 852 ml 619 ml 500 ml Output Total 1800 ml 780 ml 310 ml Balance -948 ml -161 ml 190 ml Results Result Diagram: 11/05/17 0530 11/05/17 0530 Results 24 hrs Laboratory Tests Test 11/04/17 12:00 11/04/17 14:08 11/04/17 21:29 11/05/17 01:20 Urine Color PATEL Urine Clarity CLEAR Urine pH 6.0 Urine Specific [place] 1.021 Urine Ketones NEGATIVE Urine Nitrite NEGATIVE Urine Bilirubin NEGATIVE Urine Urobilinogen 2+ H Urine Leukocyte Esterase NEGATIVE Urine Microscopic RBC 117 H Urine Microscopic WBC 16 H Urine Bacteria FEW A Urine Mucus FEW A Urine Hemoglobin 2+ H Urine Glucose NEGATIVE Urine Total Protein 2+ H Bedside Glucose 108 123 101 Test 11/05/17 05:30 11/05/17 05:33 White Blood Count 10.6 Red Blood Count 4.27 L Hemoglobin 10.7 L Hematocrit 34.8 L Mean Corpuscular Volume 81.5 L Mean Corpuscular Hemoglobin 25.1 L Mean Corpuscular Hemoglobin Concent 30.7 L Red Cell Distribution Width 17.6 H Platelet Count 449 H Mean Platelet Volume 11.0 H Neutrophils % 63.4 Lymphocytes % 21.4 Monocytes % 10.3 Eosinophils % 3.1 Basophils % 0.8 Nucleated Red Blood Cells % 0.0 Neutrophils # 6.7 Lymphocytes # 2.3 Monocytes # 1.1 H Eosinophils # 0.3 Basophils # 0.1 Nucleated Red Blood Cells # 0.0 Sodium Level 142 Potassium Level 3.8 Chloride Level 95 L Carbon Dioxide Level 39 H Anion Gap 12 Blood Urea Nitrogen 13 Creatinine 0.78 Glucose Level 99 Calcium Level 8.7 Phosphorus Level 5.5 H Magnesium Level 1.6 L Bedside Glucose 98 Medications Medications Current Medications Ondansetron HCl (Zofran Inj) 4 mg Q6H PRN IV NAUSEA AND/OR VOMITING Last administered on 11/02/17 13:46; Admin Dose 4 MG; Start 10/14/17 at 21:30 Nitroglycerin (Nitroglycerin (Sl Tab) 0.4 Mg) 1 tab Q5M PRN SL CHEST PAIN; Start 10/14/17 at 21:30 Acetaminophen (Tylenol Tab) 650 mg Q6H PRN PO PAIN LEVEL 1-3 OR FEVER Last administered on 11/02/17 18:35; Admin Dose 650 MG; Start 10/14/17 at 21:30 Morphine Sulfate (morphine) 2 mg Q4H PRN IV PAIN LEVEL 7-10 Last administered on 11/01/17 20:31; Admin Dose 2 MG; Start 10/16/17 at 00:00 Multi-Ingredient Ointment (Eucerin Cream) 1 applic BID TOP Last administered on 11/05/17 09:14; Admin Dose 1 APPLIC; Start 10/16/17 at 09:00 Triamcinolone Acetonide (Kenalog 0.1% Oint) 1 applic BID TOP Last administered on 11/05/17 09:14; Admin Dose 1 APPLIC; Start 10/16/17 at 14:00 Famotidine 20 mg 20 mg HS GTB Last administered on 11/04/17 20:24; Admin Dose 20 MG; Start 10/17/17 at 21:00 Fentanyl (Sublimaze) 100 ml @ 2.5 mls/hr TITRATE IV Last administered on 08:47; Admin Dose 5 MLS/HR; Start 10/18/17 at 10:00 Lorazepam (Ativan) 2 mg Q4H PRN IV AGITATION Last administered on 11/05/17 05: 27; Admin Dose 2 MG; Start 10/18/17 at 21:00 Diagnostic Test (Pha) (Accu-Chek) 1 ea 02 XX Last administered on 11/05/17 01: 21; Admin Dose 1 EA; Start 10/20/17 at 02:00 Miscellaneous Information 1 ea NOTE XX ; Start 10/19/17 at 18:00 Glucose (Glutose) 15 gm Q15M PRN PO DECREASED GLUCOSE; Start 10/19/17 at 18:00 Glucose (Glutose) 22.5 gm Q15M PRN PO DECREASED GLUCOSE; Start 10/19/17 at 18: 00 Dextrose (D50w Syringe) 25 ml Q15M PRN IV DECREASED GLUCOSE; Start 10/19/17 at 18:00 Dextrose (D50w Syringe) 50 ml Q15M PRN IV DECREASED GLUCOSE; Start 10/19/17 at 18:00 Glucagon (Glucagen) 1 mg Q15M PRN IM DECREASED GLUCOSE; Start 10/19/17 at 18: 00 Glucose 15 gm 15 gm Q15M PRN BUCCAL DECREASED GLUCOSE; Start 10/19/17 at 18:00 Midazolam HCl (Versed) 50 ml @ 1 mls/hr TITRATE IV Last administered on 02:29; Admin Dose 5 MLS/HR; Start 10/21/17 at 09:30 IV Flush (NS 10 ml) 10 ml PRN PRN IV IV PROTOCOL; Start 10/22/17 at 19:00 Insulin Aspart (Novolog Insulin Pen) NOVOLOG *MILD* ALGORI... Q8 SC ; Start at 22:00 Docusate Sodium (Colace Liquid Cup) 100 mg BID GTB Last administered on 20:24; Admin Dose 100 MG; Start 10/24/17 at 21:00 Enoxaparin Sodium (Lovenox) 40 mg DAILY SC Last administered on 11/05/17 09:13 ; Admin Dose 40 MG; Start 11/04/17 at 09:00 Lansoprazole 30 mg 30 mg BID@06,18 GTB Last administered on 11/05/17 05:27; Admin Dose 30 MG; Start 11/04/17 at 18:00 Magnesium Sulfate/ Dextrose (Magnesium Sulfate 1 Gm/D5W) 100 ml @ 100 mls/hr ONCE ONCE IVPB ; Start 11/05/17 at 10:00; Stop 11/05/17 at 10:59 DOLLY ESCOBEDO Nov 05, 2017 09:48
[2017-11-05] MEDS ORDERED: MAGNESIUM SULFATE 2 GM/50 ML 50 ML IVPB ONE (10:00)
[2017-11-05] MEDS ORDERED: MAGNESIUM SULFATE 1 GM/D5W 100 ML IVPB ONE (10:00)
--- NOTE | 2017-11-05 10:11 | CONS ---
Date/Time of Note Date/Time of Note DATE: 11/05/17 TIME: 10:09 Assessment/Plan Assessment/Plan Additional Assessment/Plan Ventilator setting; AC of 18, tidal volume 550, PEEP of 5, 40% FiO2. Assessment and recommendations; 1. Patient admitted with hypercapnic respiratory failure from CHF as well as obesity/hypoventilation syndrome. 2. Underlying morbid obesity. 3. Status post tracheostomy and G-tube placement. Continue current treatment. Patient awaiting transfer to rehab center. Consultation Date/Type/Reason Admit Date/Time Oct 14, 2017 at 20:55 Type of Consultation: Pulmonary/CCM 24 HR Interval Summary Free Text/Dictation Patient's condition is stable. Remains awake and alert. Has remained hemodynamically stable. General exam; middle-aged male, morbidly obese, on ventilator via tracheostomy currently in no distress. Exam/Review of Systems Vital Signs Vitals Vital Signs Date Time Temp Pulse Resp B/P Pulse Ox O2 Delivery O2 Flow Rate FiO2 11/05/17 06:06 81 18 95 40 11/05/17 05:00 110/63 11/05/17 04:00 98.6 11/05/17 03:00 Mechanical Ventilator Intake and Output 11/04/17 11/04/17 11/05/17 15:00 23:00 07:00 Intake Total 852 ml 619 ml 500 ml Output Total 1800 ml 780 ml 310 ml Balance -948 ml -161 ml 190 ml Exam HEENT exam; supple neck, tracheostomy in place patient has fair dentition JVD difficult to see because of short neck. No neck masses. Chest exam; diminished breath sounds throughout. S1-S2 audible, no murmurs. Regular rhythm. Abdomen exam; soft, G-tube in place. Protuberant. Organomegaly difficult to assess. Bowel sounds audible. Extremity exam; chronic appearing skin changes in lower extremities with 2+ edema. [employer] HAND exam; no focal motor deficit. Results Result Diagram: 11/05/1730 11/05/17 0530 Results 24 hrs Laboratory Tests Test 11/04/17 12:00 11/04/17 14:08 11/04/17 21:29 11/05/17 01:20 Urine Color PATEL Urine Clarity CLEAR Urine pH 6.0 Urine Specific [place] 1.021 Urine Ketones NEGATIVE Urine Nitrite NEGATIVE Urine Bilirubin NEGATIVE Urine Urobilinogen 2+ H Urine Leukocyte Esterase NEGATIVE Urine Microscopic RBC 117 H Urine Microscopic WBC 16 H Urine Bacteria FEW A Urine Mucus FEW A Urine Hemoglobin 2+ H Urine Glucose NEGATIVE Urine Total Protein 2+ H Bedside Glucose 108 123 101 Test 11/05/17 05:30 11/05/17 05:33 White Blood Count 10.6 Red Blood Count 4.27 L Hemoglobin 10.7 L Hematocrit 34.8 L Mean Corpuscular Volume 81.5 L Mean Corpuscular Hemoglobin 25.1 L Mean Corpuscular Hemoglobin Concent 30.7 L Red Cell Distribution Width 17.6 H Platelet Count 449 H Mean Platelet Volume 11.0 H Neutrophils % 63.4 Lymphocytes % 21.4 Monocytes % 10.3 Eosinophils % 3.1 Basophils % 0.8 Nucleated Red Blood Cells % 0.0 Neutrophils # 6.7 Lymphocytes # 2.3 Monocytes # 1.1 H Eosinophils # 0.3 Basophils # 0.1 Nucleated Red Blood Cells # 0.0 Sodium Level 142 Potassium Level 3.8 Chloride Level 95 L Carbon Dioxide Level 39 H Anion Gap 12 Blood Urea Nitrogen 13 Creatinine 0.78 Glucose Level 99 Calcium Level 8.7 Phosphorus Level 5.5 H Magnesium Level 1.6 L Bedside Glucose 98 Medications Medications Current Medications Ondansetron HCl (Zofran Inj) 4 mg Q6H PRN IV NAUSEA AND/OR VOMITING Last administered on 11/02/17 13:46; Admin Dose 4 MG; Start 10/14/17 at 21:30 Nitroglycerin (Nitroglycerin (Sl Tab) 0.4 Mg) 1 tab Q5M PRN SL CHEST PAIN; Start 10/14/17 at 21:30 Acetaminophen (Tylenol Tab) 650 mg Q6H PRN PO PAIN LEVEL 1-3 OR FEVER Last administered on 11/02/17 18:35; Admin Dose 650 MG; Start 10/14/17 at 21:30 Morphine Sulfate (morphine) 2 mg Q4H PRN IV PAIN LEVEL 7-10 Last administered on 11/01/17 20:31; Admin Dose 2 MG; Start 10/16/17 at 00:00 Multi-Ingredient Ointment (Eucerin Cream) 1 applic BID TOP Last administered on 11/05/17 09:14; Admin Dose 1 APPLIC; Start 10/16/17 at 09:00 Triamcinolone Acetonide (Kenalog 0.1% Oint) 1 applic BID TOP Last administered on 11/05/17 09:14; Admin Dose 1 APPLIC; Start 10/16/17 at 14:00 Famotidine 20 mg 20 mg HS GTB Last administered on 11/04/17 20:24; Admin Dose 20 MG; Start 10/17/17 at 21:00 Fentanyl (Sublimaze) 100 ml @ 2.5 mls/hr TITRATE IV Last administered on 08:47; Admin Dose 5 MLS/HR; Start 10/18/17 at 10:00 Lorazepam (Ativan) 2 mg Q4H PRN IV AGITATION Last administered on 11/05/17 05: 27; Admin Dose 2 MG; Start 10/18/17 at 21:00 Diagnostic Test (Pha) (Accu-Chek) 1 ea 02 XX Last administered on 11/05/17 01: 21; Admin Dose 1 EA; Start 10/20/17 at 02:00 Miscellaneous Information 1 ea NOTE XX ; Start 10/19/17 at 18:00 Glucose (Glutose) 15 gm Q15M PRN PO DECREASED GLUCOSE; Start 10/19/17 at 18:00 Glucose (Glutose) 22.5 gm Q15M PRN PO DECREASED GLUCOSE; Start 10/19/17 at 18: 00 Dextrose (D50w Syringe) 25 ml Q15M PRN IV DECREASED GLUCOSE; Start 10/19/17 at 18:00 Dextrose (D50w Syringe) 50 ml Q15M PRN IV DECREASED GLUCOSE; Start 10/19/17 at 18:00 Glucagon (Glucagen) 1 mg Q15M PRN IM DECREASED GLUCOSE; Start 10/19/17 at 18: 00 Glucose 15 gm 15 gm Q15M PRN BUCCAL DECREASED GLUCOSE; Start 10/19/17 at 18:00 Midazolam HCl (Versed) 50 ml @ 1 mls/hr TITRATE IV Last administered on 02:29; Admin Dose 5 MLS/HR; Start 10/21/17 at 09:30 IV Flush (NS 10 ml) 10 ml PRN PRN IV IV PROTOCOL; Start 10/22/17 at 19:00 Insulin Aspart (Novolog Insulin Pen) NOVOLOG *MILD* ALGORI... Q8 SC ; Start at 22:00 Docusate Sodium (Colace Liquid Cup) 100 mg BID GTB Last administered on 20:24; Admin Dose 100 MG; Start 10/24/17 at 21:00 Enoxaparin Sodium (Lovenox) 40 mg DAILY SC Last administered on 11/05/17 09:13 ; Admin Dose 40 MG; Start 11/04/17 at 09:00 Lansoprazole 30 mg 30 mg BID@06,18 GTB Last administered on 11/05/17 05:27; Admin Dose 30 MG; Start 11/04/17 at 18:00 Magnesium Sulfate (Magnesium Sulfate 2 Gm/50 ml) 50 ml @ 25 mls/hr ONCE ONCE IVPB ; Start 11/05/17 at 10:00; Stop 11/05/17 at 11:59 GABRIEL MALDONADO Nov 05, 2017 10:11
--- NOTE | 2017-11-05 16:47 | PN ---
Date/Time of Note Date/Time of Note DATE: 11/05/17 TIME: 16:33 Assessment/Plan VTE Prophylaxis VTE Prophylaxis Intervention: other (Lovenox) Lines/Catheters IV Catheter Type (from Nrs): PICC Line Central line still needed: Yes (For medications) Urinary Cath still in place: Yes Reason Cath still needed: other (indicate) (Intake and output) Assessment/Plan Chief Complaint/Hosp Course Assessment: Feeding difficulty Post uneventful PEG Incidental finding reactive antral gastric ulcer Respiratory failure/post tracheostomy/Ventilator dependent Suspected pulmonary embolism Morbid obesity Type 2 diabetes Hx of cardiac arrest Plan: Continue TF as tolerated Currently at goal 50ml/hr PEG care Patient seen in collaboration with Dr. Joseph Subjective: Course reviewed with nursing staff Patient examined All labs, imaging and other results reviewed. At this point patient is stable GI carrero will sign off to hospitalist. Will be available for consultation upon request PHYSICAL EXAMINATION: GENERAL: Morbidly obese, sedated, in no acute distress SKIN: Dry scattered psoriatic patches on upper and lower extremities, no stigmata chronic liver disease, no evidence of bleeding diathesis. Abdominal bruises at the injection sites. LYMPHATIC: No palpable lymphadenopathy. HEAD: Normocephalic, atraumatic, no tenderness. EYES: Pupils equal reactive to light and accommodation, full extraocular movements, sclera clear, non-icteric, no discharge. EARS/NOSE AND THROAT: Ears normal, nose normal, oropharynx normal, oral membranes well hydrated without lesions. NECK: Supple, no masses, JVP within normal limits, carotids normal without bruits. Tracheostomy in place. On the ventilator. CHEST: Inspection within normal limits. CARDIOVASCULAR: Heart: Regular rate and rhythm, no murmurs, gallops or rubs. Peripheral pulses present within normal limits, no cyanosis, clubbing or edemas. No pulsatile abdominal mass RESPIRATORY: Lungs clear to auscultation and percussion, no wheezing, no rubs GASTROINTESTINAL AND LIVER: Abdomen: Soft, obese, no tenderness, non-distended, no hernias, no masses, no organomegaly, no ascites, no guarding, no rebound tenderness, normoactive bowel sounds. Peg tube in place, site is clear. Rectal: Deferred. GENITOURINARY: male genitalia within normal limits. EXTREMITIES: No cyanosis, clubbing or edema. Problems: Exam/Review of Systems Vital Signs Vitals Vital Signs Date Time Temp Pulse Resp B/P Pulse Ox O2 Delivery O2 Flow Rate FiO2 11/05/17 16:00 98.7 117 18 131/68 98 Mechanical Ventilator 11/05/17 15:40 40 Intake and Output 11/04/17 11/04/17 11/05/17 15:00 23:00 07:00 Intake Total 852 ml 619 ml 755 ml Output Total 1800 ml 780 ml 335 ml Balance -948 ml -161 ml 420 ml Results Result Diagram: 11/05/17 0530 11/05/17 0530 Results 24 hrs Laboratory Tests Test 11/04/17 21:29 11/05/17 01:20 11/05/17 05:30 11/05/17 05:33 Bedside Glucose 123 101 98 White Blood Count 10.6 Red Blood Count 4.27 L Hemoglobin 10.7 L Hematocrit 34.8 L Mean Corpuscular Volume 81.5 L Mean Corpuscular Hemoglobin 25.1 L Mean Corpuscular Hemoglobin Concent 30.7 L Red Cell Distribution Width 17.6 H Platelet Count 449 H Mean Platelet Volume 11.0 H Neutrophils % 63.4 Lymphocytes % 21.4 Monocytes % 10.3 Eosinophils % 3.1 Basophils % 0.8 Nucleated Red Blood Cells % 0.0 Neutrophils # 6.7 Lymphocytes # 2.3 Monocytes # 1.1 H Eosinophils # 0.3 Basophils # 0.1 Nucleated Red Blood Cells # 0.0 Sodium Level 142 Potassium Level 3.8 Chloride Level 95 L Carbon Dioxide Level 39 H Anion Gap 12 Blood Urea Nitrogen 13 Creatinine 0.78 Glucose Level 99 Calcium Level 8.7 Phosphorus Level 5.5 H Magnesium Level 1.6 L Test 11/05/17 14:38 Bedside Glucose 107 Medications Medications Current Medications Ondansetron HCl (Zofran Inj) 4 mg Q6H PRN IV NAUSEA AND/OR VOMITING Last administered on 11/02/17 13:46; Admin Dose 4 MG; Start 10/14/17 at 21:30 Nitroglycerin (Nitroglycerin (Sl Tab) 0.4 Mg) 1 tab Q5M PRN SL CHEST PAIN; Start 10/14/17 at 21:30 Acetaminophen (Tylenol Tab) 650 mg Q6H PRN PO PAIN LEVEL 1-3 OR FEVER Last administered on 11/02/17 18:35; Admin Dose 650 MG; Start 10/14/17 at 21:30 Morphine Sulfate (morphine) 2 mg Q4H PRN IV PAIN LEVEL 7-10 Last administered on 11/01/17 20:31; Admin Dose 2 MG; Start 10/16/17 at 00:00 Multi-Ingredient Ointment (Eucerin Cream) 1 applic BID TOP Last administered on 11/05/17 09:14; Admin Dose 1 APPLIC; Start 10/16/17 at 09:00 Triamcinolone Acetonide (Kenalog 0.1% Oint) 1 applic BID TOP Last administered on 11/05/17 09:14; Admin Dose 1 APPLIC; Start 10/16/17 at 14:00 Famotidine 20 mg 20 mg HS GTB Last administered on 11/04/17 20:24; Admin Dose 20 MG; Start 10/17/17 at 21:00 Fentanyl (Sublimaze) 100 ml @ 2.5 mls/hr TITRATE IV Last administered on 08:47; Admin Dose 5 MLS/HR; Start 10/18/17 at 10:00 Lorazepam (Ativan) 2 mg Q4H PRN IV AGITATION Last administered on 11/05/17 12: 14; Admin Dose 2 MG; Start 10/18/17 at 21:00 Diagnostic Test (Pha) (Accu-Chek) 1 ea 02 XX Last administered on 11/05/17 01: 21; Admin Dose 1 EA; Start 10/20/17 at 02:00 Miscellaneous Information 1 ea NOTE XX ; Start 10/19/17 at 18:00 Glucose (Glutose) 15 gm Q15M PRN PO DECREASED GLUCOSE; Start 10/19/17 at 18:00 Glucose (Glutose) 22.5 gm Q15M PRN PO DECREASED GLUCOSE; Start 10/19/17 at 18: 00 Dextrose (D50w Syringe) 25 ml Q15M PRN IV DECREASED GLUCOSE; Start 10/19/17 at 18:00 Dextrose (D50w Syringe) 50 ml Q15M PRN IV DECREASED GLUCOSE; Start 10/19/17 at 18:00 Glucagon (Glucagen) 1 mg Q15M PRN IM DECREASED GLUCOSE; Start 10/19/17 at 18: 00 Glucose 15 gm 15 gm Q15M PRN BUCCAL DECREASED GLUCOSE; Start 10/19/17 at 18:00 Midazolam HCl (Versed) 50 ml @ 1 mls/hr TITRATE IV Last administered on 02:29; Admin Dose 5 MLS/HR; Start 10/21/17 at 09:30 IV Flush (NS 10 ml) 10 ml PRN PRN IV IV PROTOCOL; Start 10/22/17 at 19:00 Insulin Aspart (Novolog Insulin Pen) NOVOLOG *MILD* ALGORI... Q8 SC ; Start at 22:00 Docusate Sodium (Colace Liquid Cup) 100 mg BID GTB Last administered on 20:24; Admin Dose 100 MG; Start 10/24/17 at 21:00 Enoxaparin Sodium (Lovenox) 40 mg DAILY SC Last administered on 11/05/17 09:13 ; Admin Dose 40 MG; Start 11/04/17 at 09:00 Lansoprazole (Prevacid) 30 mg BID@06,18 GTB Last administered on 11/05/17 05: 27; Admin Dose 30 MG; Start 11/04/17 at 18:00 Copies To: CC: JOSE DAVID JOSEPH MD, ANASTASIA NP Nov 05, 2017 16:44
[2017-11-05] MEDS: FAMOTIDINE 20 MG TAB GTB SCH (20:20)
[2017-11-05] MEDS: ACETAMINOPHEN 325 MG TAB PO PRN (20:21)
[2017-11-06] VITALS (36 sets, daily range): BP systolic 106–178; BP diastolic 53–115; PULSE 92–121; RESP 16–25
[2017-11-06] MEDS: ACCU-CHEK XX SCH (01:11)
[2017-11-06] MEDS: FENTAnyl (DRIP) 1000 mcg/100mL 100 ML IV SCH ×2 (01:21→20:13)
[2017-11-06] MEDS: LORAZEPAM 2 MG INJ IV PRN ×5 (03:02→21:27)
[2017-11-06 05:49] LABS: BASOPHIL # 0.1 10^3/ul (0.0-0.1); BASOPHILS % 0.7 % (0.0-2.0); EOSINOPHILS # 0.3 10^3/ul (0.0-0.5); EOSINOPHILS % 2.6 % (0.0-7.0); HEMATOCRIT 38.7 % (42.0-52.0); HEMOGLOBIN 11.7 g/dl (14.0-18.0); LYMPHOCYTES # 2.6 10^3/ul (0.8-2.9); LYMPHOCYTES % 20.8 % (15.0-51.0); MEAN CORPUSCULAR HEMOGLOBIN 24.3 pg (29.0-33.0); MEAN CORPUSCULAR HGB CONC 30.2 g/dl (32.0-37.0); MEAN CORPUSCULAR VOLUME 80.5 fl (82.0-101.0); MONOCYTE # 1.5 10^3/ul (0.3-0.9); MONOCYTES % 11.6 % (0.0-11.0); NEUTROPHIL # 7.9 10^3/ul (1.6-7.5); NEUTROPHILS % 63.4 % (39.0-77.0); PLATELET COUNT 519 10^3/UL (140-415); RED BLOOD COUNT 4.81 10^6/ul (4.70-6.10); RED CELL DISTRIBUTION WIDTH 17.4 % (11.5-14.5); WHITE BLOOD COUNT 12.5 10^3/ul (4.8-10.8)
[2017-11-06] MEDS: FUROSEMIDE 40 MG INJ IV SCH ×2 (05:54→18:08)
[2017-11-06] MEDS: LANSOPRAZOLE 30 MG CAP GTB SCH ×2 (05:54→18:08)
[2017-11-06] MEDS: INSULIN ASPART [NOVOLOG] 3 ML PEN SC SCH ×3 (06:00→22:00)
[2017-11-06 06:32] LABS: CALCIUM 9.7 mg/dl (8.4-10.2); CREATININE 0.93 mg/dl (0.61-1.24); POTASSIUM 3.1 mmol/L (3.5-5.1)
[2017-11-06] MEDS: DOCUSATE SODIUM 10 MG/ML (10ML CUP) GTB SCH ×3 (08:40→20:52)
[2017-11-06] MEDS: EUCERIN 113 GM CR TOP SCH ×2 (08:41→20:53)
[2017-11-06] MEDS: TRIAMCINOLONE ACET 0.1% 15 GM OINT TOP SCH ×2 (08:41→20:53)
[2017-11-06] MEDS: ENOXAPARIN 40 MG/0.4 ML SYG SC SCH (08:41)
--- NOTE | 2017-11-06 09:26 | PN ---
Date/Time of Note Date/Time of Note DATE: 11/06/17 TIME: 09:20 Assessment/Plan VTE Prophylaxis VTE Prophylaxis Intervention: LMWH Lines/Catheters IV Catheter Type (from Nrs): PICC Line Central line still needed: Yes Urinary Cath still in place: Yes Reason Cath still needed: urinary retention Assessment/Plan Chief Complaint/Hosp Course S: No acute events overnight. O: VS (see below) PE: Lying in bed, NAD Supple distant lung sounds distant heart sounds no rashes LE unchanged Assessment/Plan: 47 yo M with super morbid obesity, DM presented to SOB intubated initially for airway protection in setting of CO2 narcosis, now s/p trach/PEG placement. 1. SOB/res failure: Acute on chronic hypercapnic respiratory failure. Pulmonary edema and pneumonia S/P abx tx as well - ruled out for acute HI during this hospital stay. -continue trach, follow pulmonary recommendations -Continue diuretics for now (lasix IV BID) -Try to wean sedation as tolerated -continue PT 2. possible DVT/ PE?: Lower extremity ultrasounds results on 10/15/17 were inconclusive. Patient apparently too large to fit in CT scanner, so CTA not able to be performed. Had been on LMWH treatment dose but GI recommends against this now given the fact that patient has antral ulcer, although nonbleeding. Patient also previously this admission had some ET tube bleeding while on anticoagulation when he was intubated at that time, although none presently. -For now continue low molecular weight heparin 40 mg subcu daily for DVT prophylaxis, monitor carefully for any signs of bleeding, consider SCDs as well instead. -again we are holding treatment dose anticoagulation given the fact of antral ulcer present and because of inconclusive study results at this point for any DVT or PE present. -Will need larger machine (likely as an outpatient) to determine if there is pulmonary embolism present. If it is determined, however, that patient would need anticoagulation for DVT or PE treatment as an outpatient, would recommend against Coumadin as outpatient given patient's history of noncompliance. Instead , per discussion with pharmacy and pulmonary teams 2 weeks ago, if patient able to be extubated and take oral medicines, would recommend transition to either Eliquis or Xarelto at that time instead bc even though apparently not recommended to use NOAC if BMI >40, recent studies do indicate checking drug specific peak and trough levels on occasion for these medicines if having to use DOAC in patients with BMI greater than 40. Given this patient's history of noncompliance, DOAC would likely be more beneficial to this patient versus Coumadin as an outpatient. 3. LE wounds: Continue wound care per wound care team. 4. DM2: cont SSI as needed 5. hypernatremia - slightly present today -will add D5W x 6 hrs, repeat BMP in AM 6. Antral ulcer: Nonbleeding - continue Pepcid twice daily, follow GI recommendations CM; placement to LTAC vs SNF - f/u with CM on this. WEAN SEDATION critical care time: 40 minutes Problems: Exam/Review of Systems Vital Signs Vitals Vital Signs Date Time Temp Pulse Resp B/P Pulse Ox O2 Delivery O2 Flow Rate FiO2 11/06/17 08:02 112 21 93 40 11/06/17 06:00 152/91 Mechanical Ventilator 11/06/17 04:00 98.8 Intake and Output 11/05/17 11/05/17 11/06/17 15:00 23:00 07:00 Intake Total 598.0 ml 177.5 ml 788 ml Output Total 390 ml 515 ml 315 ml Balance 208.0 ml -337.5 ml 473 ml Results Result Diagram: 11/06/17 0520 11/06/17 0520 Results 24 hrs Laboratory Tests Test 11/05/17 14:38 11/05/17 21:34 11/06/17 05:20 11/06/17 05:58 Bedside Glucose 107 112 105 White Blood Count 12.5 H Red Blood Count 4.81 Hemoglobin 11.7 L Hematocrit 38.7 L Mean Corpuscular Volume 80.5 L Mean Corpuscular Hemoglobin 24.3 L Mean Corpuscular Hemoglobin Concent 30.2 L Red Cell Distribution Width 17.4 H Platelet Count 519 H Mean Platelet Volume 11.0 H Neutrophils % 63.4 Lymphocytes % 20.8 Monocytes % 11.6 H Eosinophils % 2.6 Basophils % 0.7 Nucleated Red Blood Cells % 0.0 Neutrophils # 7.9 H Lymphocytes # 2.6 Monocytes # 1.5 H Eosinophils # 0.3 Basophils # 0.1 Nucleated Red Blood Cells # 0.0 Sodium Level 146 H Potassium Level 3.1 L Chloride Level 94 L Carbon Dioxide Level 42 *H Anion Gap 13 Blood Urea Nitrogen 14 Creatinine 0.93 Glucose Level 119 Calcium Level 9.7 Medications Medications Current Medications Ondansetron HCl (Zofran Inj) 4 mg Q6H PRN IV NAUSEA AND/OR VOMITING Last administered on 11/02/17 13:46; Admin Dose 4 MG; Start 10/14/17 at 21:30 Nitroglycerin (Nitroglycerin (Sl Tab) 0.4 Mg) 1 tab Q5M PRN SL CHEST PAIN; Start 10/14/17 at 21:30 Acetaminophen (Tylenol Tab) 650 mg Q6H PRN PO PAIN LEVEL 1-3 OR FEVER Last administered on 11/05/17 20:21; Admin Dose 650 MG; Start 10/14/17 at 21:30 Morphine Sulfate (morphine) 2 mg Q4H PRN IV PAIN LEVEL 7-10 Last administered on 11/01/17 20:31; Admin Dose 2 MG; Start 10/16/17 at 00:00 Multi-Ingredient Ointment (Eucerin Cream) 1 applic BID TOP Last administered on 11/06/17 08:41; Admin Dose 1 APPLIC; Start 10/16/17 at 09:00 Triamcinolone Acetonide (Kenalog 0.1% Oint) 1 applic BID TOP Last administered on 11/06/17 08:41; Admin Dose 1 APPLIC; Start 10/16/17 at 14:00 Famotidine 20 mg 20 mg HS GTB Last administered on 11/05/17 20:20; Admin Dose 20 MG; Start 10/17/17 at 21:00 Fentanyl (Sublimaze) 100 ml @ 2.5 mls/hr TITRATE IV Last administered on 01:21; Admin Dose 5 MLS/HR; Start 10/18/17 at 10:00 Diagnostic Test (Pha) (Accu-Chek) 1 ea 02 XX Last administered on 11/05/17 01: 21; Admin Dose 1 EA; Start 10/20/17 at 02:00 Miscellaneous Information 1 ea NOTE XX ; Start 10/19/17 at 18:00 Glucose (Glutose) 15 gm Q15M PRN PO DECREASED GLUCOSE; Start 10/19/17 at 18:00 Glucose (Glutose) 22.5 gm Q15M PRN PO DECREASED GLUCOSE; Start 10/19/17 at 18: 00 Dextrose (D50w Syringe) 25 ml Q15M PRN IV DECREASED GLUCOSE; Start 10/19/17 at 18:00 Dextrose (D50w Syringe) 50 ml Q15M PRN IV DECREASED GLUCOSE; Start 10/19/17 at 18:00 Glucagon (Glucagen) 1 mg Q15M PRN IM DECREASED GLUCOSE; Start 10/19/17 at 18: 00 Glucose 15 gm 15 gm Q15M PRN BUCCAL DECREASED GLUCOSE; Start 10/19/17 at 18:00 Midazolam HCl (Versed) 50 ml @ 1 mls/hr TITRATE IV Last administered on 02:29; Admin Dose 5 MLS/HR; Start 10/21/17 at 09:30 IV Flush (NS 10 ml) 10 ml PRN PRN IV IV PROTOCOL; Start 10/22/17 at 19:00 Insulin Aspart (Novolog Insulin Pen) NOVOLOG *MILD* ALGORI... Q8 SC ; Start at 22:00 Docusate Sodium (Colace Liquid Cup) 100 mg BID GTB Last administered on 08:40; Admin Dose 100 MG; Start 10/24/17 at 21:00 Enoxaparin Sodium (Lovenox) 40 mg DAILY SC Last administered on 11/06/17 08:41 ; Admin Dose 40 MG; Start 11/04/17 at 09:00 Lansoprazole (Prevacid) 30 mg BID@06,18 GTB Last administered on 11/06/17 05: 54; Admin Dose 30 MG; Start 11/04/17 at 18:00 Lorazepam (Ativan) 2 mg Q3H PRN IV AGITATION/ANXIETY Last administered on 08:41; Admin Dose 2 MG; Start 11/05/17 at 22:00 DOLLY ESCOBEDO Nov 06, 2017 09:25
[2017-11-06] MEDS ORDERED: DEXTROSE 5% 1,000 ML IV SCH (09:30)
[2017-11-06] MEDS ORDERED: POTASSIUM CHLORIDE 30 MEQ in DEXTROSE 5% 250 ML IVPB ONE (10:00)
--- NOTE | 2017-11-06 11:24 | CONS ---
Date/Time of Note Date/Time of Note DATE: 11/06/17 TIME: 11:22 Assessment/Plan Assessment/Plan Additional Assessment/Plan Ventilator setting; AC of 18, tidal volume 550, PEEP of 5, 40% FiO2. Patient is on fentanyl drip at 50 mics per hour. Assessment and recommendations; 1. Patient admitted with respiratory failure due to severe hypercapnia and CHF due to underlying morbid obesity with obesity/hypoventilation syndrome and likely underlying severe untreated sleep apnea. 2. Patient appears agitated off sedation. 3. Status post tracheostomy and G-tube placement. Continue current treatment. Wean off sedation as tolerated. Patient to be transferred to rehab center once off continuous intravenous sedation. Consultation Date/Type/Reason Admit Date/Time Oct 14, 2017 at 20:55 Type of Consultation: Pulmonary/CCM 24 HR Interval Summary Free Text/Dictation Patient's condition remains critical. Patient not requiring fentanyl drip for sedation. Patient does get extremely agitated whenever he is off continuous intravenous sedation. Patient however has remained hemodynamically stable. General exam; young male, morbidly obese, on ventilator via tracheostomy, sedated, currently in no distress. Exam/Review of Systems Vital Signs Vitals Vital Signs Date Time Temp Pulse Resp B/P Pulse Ox O2 Delivery O2 Flow Rate FiO2 11/06/17 11:04 104 20 98 40 11/06/17 10:00 106/56 Mechanical Ventilator 11/06/17 08:00 99.8 Intake and Output 11/05/17 11/05/17 11/06/17 15:00 23:00 07:00 Intake Total 598.0 ml 177.5 ml 788 ml Output Total 390 ml 515 ml 315 ml Balance 208.0 ml -337.5 ml 473 ml Exam HEENT exam; supple neck, JVD difficult to see because of short neck. Tracheostomy in place insertion site is clean. Patient has fair dentition. No neck masses. Chest exam; diminished breath sounds bilaterally. S1-S2 audible, no murmurs. Regular rhythm. Abdomen exam; grossly protuberant. Organomegaly difficult to palpate. G-tube in place. Bowel sounds audible. Extremity exam; 1+ edema. With chronic lower extremity skin changes. [employer] exam; patient is sedated. Results Result Diagram: 11/06/17 0511/06/17 0520 Results 24 hrs Laboratory Tests Test 11/05/17 14:38 11/05/17 21:34 11/06/17 05:20 11/06/17 05:58 Bedside Glucose 107 112 105 White Blood Count 12.5 H Red Blood Count 4.81 Hemoglobin 11.7 L Hematocrit 38.7 L Mean Corpuscular Volume 80.5 L Mean Corpuscular Hemoglobin 24.3 L Mean Corpuscular Hemoglobin Concent 30.2 L Red Cell Distribution Width 17.4 H Platelet Count 519 H Mean Platelet Volume 11.0 H Neutrophils % 63.4 Lymphocytes % 20.8 Monocytes % 11.6 H Eosinophils % 2.6 Basophils % 0.7 Nucleated Red Blood Cells % 0.0 Neutrophils # 7.9 H Lymphocytes # 2.6 Monocytes # 1.5 H Eosinophils # 0.3 Basophils # 0.1 Nucleated Red Blood Cells # 0.0 Sodium Level 146 H Potassium Level 3.1 L Chloride Level 94 L Carbon Dioxide Level 42 *H Anion Gap 13 Blood Urea Nitrogen 14 Creatinine 0.93 Glucose Level 119 Calcium Level 9.7 Medications Medications Current Medications Ondansetron HCl (Zofran Inj) 4 mg Q6H PRN IV NAUSEA AND/OR VOMITING Last administered on 11/02/17 13:46; Admin Dose 4 MG; Start 10/14/17 at 21:30 Nitroglycerin (Nitroglycerin (Sl Tab) 0.4 Mg) 1 tab Q5M PRN SL CHEST PAIN; Start 10/14/17 at 21:30 Acetaminophen (Tylenol Tab) 650 mg Q6H PRN PO PAIN LEVEL 1-3 OR FEVER Last administered on 11/05/17 20:21; Admin Dose 650 MG; Start 10/14/17 at 21:30 Morphine Sulfate (morphine) 2 mg Q4H PRN IV PAIN LEVEL 7-10 Last administered on 11/01/17 20:31; Admin Dose 2 MG; Start 10/16/17 at 00:00 Multi-Ingredient Ointment (Eucerin Cream) 1 applic BID TOP Last administered on 11/06/17 08:41; Admin Dose 1 APPLIC; Start 10/16/17 at 09:00 Triamcinolone Acetonide (Kenalog 0.1% Oint) 1 applic BID TOP Last administered on 11/06/17 08:41; Admin Dose 1 APPLIC; Start 10/16/17 at 14:00 Famotidine 20 mg 20 mg HS GTB Last administered on 11/05/17 20:20; Admin Dose 20 MG; Start 10/17/17 at 21:00 Fentanyl (Sublimaze) 100 ml @ 2.5 mls/hr TITRATE IV Last administered on 01:21; Admin Dose 5 MLS/HR; Start 10/18/17 at 10:00 Diagnostic Test (Pha) (Accu-Chek) 1 ea 02 XX Last administered on 11/05/17 01: 21; Admin Dose 1 EA; Start 10/20/17 at 02:00 Miscellaneous Information 1 ea NOTE XX ; Start 10/19/17 at 18:00 Glucose (Glutose) 15 gm Q15M PRN PO DECREASED GLUCOSE; Start 10/19/17 at 18:00 Glucose (Glutose) 22.5 gm Q15M PRN PO DECREASED GLUCOSE; Start 10/19/17 at 18: 00 Dextrose (D50w Syringe) 25 ml Q15M PRN IV DECREASED GLUCOSE; Start 10/19/17 at 18:00 Dextrose (D50w Syringe) 50 ml Q15M PRN IV DECREASED GLUCOSE; Start 10/19/17 at 18:00 Glucagon (Glucagen) 1 mg Q15M PRN IM DECREASED GLUCOSE; Start 10/19/17 at 18: 00 Glucose 15 gm 15 gm Q15M PRN BUCCAL DECREASED GLUCOSE; Start 10/19/17 at 18:00 Midazolam HCl (Versed) 50 ml @ 1 mls/hr TITRATE IV Last administered on 02:29; Admin Dose 5 MLS/HR; Start 10/21/17 at 09:30 IV Flush (NS 10 ml) 10 ml PRN PRN IV IV PROTOCOL; Start 10/22/17 at 19:00 Insulin Aspart (Novolog Insulin Pen) NOVOLOG *MILD* ALGORI... Q8 SC ; Start at 22:00 Docusate Sodium (Colace Liquid Cup) 100 mg BID GTB Last administered on 08:40; Admin Dose 100 MG; Start 10/24/17 at 21:00 Enoxaparin Sodium (Lovenox) 40 mg DAILY SC Last administered on 11/06/17 08:41 ; Admin Dose 40 MG; Start 11/04/17 at 09:00 Lansoprazole (Prevacid) 30 mg BID@06,18 GTB Last administered on 11/06/17 05: 54; Admin Dose 30 MG; Start 11/04/17 at 18:00 Lorazepam 2 mg 2 mg Q3H PRN IV AGITATION/ANXIETY Last administered on 08:41; Admin Dose 2 MG; Start 11/05/17 at 22:00 Dextrose 1,000 ml @ 100 mls/hr Q10H IV Last administered on 11/06/17 10:19; Admin Dose 100 MLS/HR; Start 11/06/17 at 09:30; Stop 11/06/17 at 15:30 Potassium Chloride/Dextrose (KCl/D5W) 265 ml @ 88.333 mls/ hr ONCE ONCE IVPB ; Start 11/06/17 at 10:00; Stop 11/06/17 at 12:59 GABRIEL MALDONADO Nov 06, 2017 11:24
[2017-11-06] MEDS: CITALOPRAM 20 MG TAB GTB SCH (15:05)
--- NOTE | 2017-11-06 19:41 | PN ---
Date/Time of Note Date/Time of Note DATE: 11/06/17 TIME: 19:41 Assessment/Plan Lines/Catheters IV Catheter Type (from Nrsg): PICC Line Fierro in Place (from Nrsg): Yes Assessment/Plan Chief Complaint/Hosp Course IMPRESSION: Respiratory failure. SP Tracheostomy will continue vent support Pul toilet Problems: Subjective 24 Hr Interval Summary Constitutional: improved Pain Control: mild Exam/Review of Systems Vital Signs Vitals Vital Signs Date Time Temp Pulse Resp B/P Pulse Ox O2 Delivery O2 Flow Rate FiO2 11/06/17 19:03 102 18 95 30 11/06/17 18:00 139/82 Mechanical Ventilator 11/06/17 16:00 98.9 Intake and Output 11/05/17 11/05/17 11/06/17 15:00 23:00 07:00 Intake Total 598.0 ml 177.5 ml 838 ml Output Total 390 ml 515 ml 565 ml Balance 208.0 ml -337.5 ml 273 ml Exam ENMT: mucosa pink and moist, nl external ears & nose, nl lips & teeth, nl nasal mucosa & septum Neck: non-tender, supple Respiratory: clear to auscultation, normal air movement Cardiovascular: nl pulses, regular rate and rhythm Results Result Diagram: 11/06/1751911/06/17519 DRISS JIMENEZ MD Nov 06, 2017 19:41
[2017-11-06] MEDS: FAMOTIDINE 20 MG TAB GTB SCH (20:52)
[2017-11-07] VITALS (36 sets, daily range): BP systolic 111–155; BP diastolic 66–111; PULSE 92–114; RESP 13–23
[2017-11-07] MEDS: ACCU-CHEK XX SCH (02:52)
[2017-11-07 05:13] LABS: BASOPHIL # 0.1 10^3/ul (0.0-0.1); EOSINOPHILS # 0.3 10^3/ul (0.0-0.5); EOSINOPHILS % 3.2 % (0.0-7.0); HEMATOCRIT 38.7 % (42.0-52.0); HEMOGLOBIN 11.5 g/dl (14.0-18.0); LYMPHOCYTES # 2.1 10^3/ul (0.8-2.9); LYMPHOCYTES % 20.4 % (15.0-51.0); MEAN CORPUSCULAR HEMOGLOBIN 24.3 pg (29.0-33.0); MEAN CORPUSCULAR HGB CONC 29.7 g/dl (32.0-37.0); MEAN CORPUSCULAR VOLUME 81.8 fl (82.0-101.0); MEAN PLATELET VOLUME 11.1 fl (7.4-10.4); MONOCYTE # 1.3 10^3/ul (0.3-0.9); MONOCYTES % 12.5 % (0.0-11.0); NEUTROPHIL # 6.4 10^3/ul (1.6-7.5); NEUTROPHILS % 62.3 % (39.0-77.0); PLATELET COUNT 489 10^3/UL (140-415); RED BLOOD COUNT 4.73 10^6/ul (4.70-6.10); RED CELL DISTRIBUTION WIDTH 17.5 % (11.5-14.5); WHITE BLOOD COUNT 10.3 10^3/ul (4.8-10.8)
[2017-11-07 05:23] LABS: CALCIUM 9.4 mg/dl (8.4-10.2); CREATININE 0.85 mg/dl (0.61-1.24)
[2017-11-07] MEDS: INSULIN ASPART [NOVOLOG] 3 ML PEN SC SCH ×3 (05:27→22:00)
[2017-11-07] MEDS: FUROSEMIDE 40 MG INJ IV SCH ×2 (05:28→18:43)
[2017-11-07] MEDS: LANSOPRAZOLE 30 MG CAP GTB SCH ×2 (05:28→18:43)
[2017-11-07] MEDS: LORAZEPAM 2 MG INJ IV PRN ×4 (08:00→23:59)
[2017-11-07] MEDS: DOCUSATE SODIUM 10 MG/ML (10ML CUP) GTB SCH ×2 (09:06→21:46)
[2017-11-07] MEDS: ENOXAPARIN 40 MG/0.4 ML SYG SC SCH (09:06)
[2017-11-07] MEDS: CITALOPRAM 20 MG TAB GTB SCH (09:06)
[2017-11-07] MEDS: EUCERIN 113 GM CR TOP SCH (09:07)
[2017-11-07] MEDS: TRIAMCINOLONE ACET 0.1% 15 GM OINT TOP SCH (09:09)
--- NOTE | 2017-11-07 09:25 | PN ---
Date/Time of Note Date/Time of Note DATE: 11/07/17 TIME: 09:18 Assessment/Plan VTE Prophylaxis VTE Prophylaxis Intervention: LMWH Lines/Catheters IV Catheter Type (from Nrs): PICC Line Central line still needed: Yes Urinary Cath still in place: Yes Reason Cath still needed: urinary retention Assessment/Plan Chief Complaint/Hosp Course S: No acute events overnight, seen by PT yesterday. O: VS (see below) PE: Lying in bed, morbidly obese, NAD trach in place Supple some B/L distant lung sounds some distant heart sounds no rashes LE unchanged Assessment/Plan: 47 yo M with super morbid obesity, DM presented to SOB intubated initially for airway protection in setting of CO2 narcosis, now s/p trach/PEG placement. 1. SOB/res failure: Acute on chronic hypercapnic respiratory failure. Pulmonary edema and pneumonia S/P abx tx as well - ruled out for acute AR during this hospital stay. -continue trach, follow pulmonary recommendations -Continue diuretics for now (lasix IV BID) -Try to wean sedation as tolerated -continue PT 2. possible DVT/ PE?: Apparently wells score at time of admission 3, indicating moderate probability for PE at that time. Lower extremity ultrasounds results on 10/15/17 were inconclusive. Patient apparently too large to fit in CT scanner, so CTA has not able to be performed during this hospital stay. Pt earlier had been on LMWH treatment dose but GI recommends against this now given the fact that patient has antral ulcer, although nonbleeding ulcer presently. Patient also previously this admission had some ET tube bleeding while on tx dose anticoagulation when he was intubated at that time, although none presently. Latest lower extremity bilateral ultrasound from November 04 negative for DVT. -again we are holding treatment dose anticoagulation given the fact of antral ulcer present and because of negative LE U/S study results at this point for any DVT or PE present. -Will need larger machine (likely as an outpatient) to definitively determine if there is pulmonary embolism present. - for now just continue Lovenox 40 mg Sub Q daily - monitor for any bleeding * Note: (If it is determined, however, that patient would need anticoagulation for DVT or PE treatment, would recommend against Coumadin as outpatient given patient's history of noncompliance. Instead, per discussion with pharmacy and pulmonary teams 2 weeks ago, if patient able to be extubated and take oral medicines, would recommend transition to either Eliquis or Xarelto at that time instead bc even though apparently not recommended to use NOAC if BMI >40, recent studies do indicate checking drug specific peak and trough levels on occasion for these medicines if having to use DOAC in patients with BMI greater than 40. Given this patient's history of noncompliance, DOAC would be more beneficial to this patient versus Coumadin as an outpatient). * 3. LE wounds: Continue wound care per wound care team. 4. DM2: cont SSI as needed 5. hypernatremia - still slightly present today (146), did get D5W IV fluids yesterday 6 hour -Monitor, consider another 6 hours of D5W IV fluids, repeat BMP in AM 6. Antral ulcer: Nonbleeding - continue Pepcid twice daily, follow GI recommendations CM; placement to LTAC vs SNF - f/u with CM on this. WEAN SEDATION as tolerated, also started on SSRI for signs of depression critical care time: 40 minutes Problems: Exam/Review of Systems Vital Signs Vitals Vital Signs Date Time Temp Pulse Resp B/P Pulse Ox O2 Delivery O2 Flow Rate FiO2 11/07/17 06:00 97 18 132/84 98 Mechanical Ventilator 11/07/17 05:10 30 11/07/17 04:00 99.5 Intake and Output 11/06/17 11/06/17 11/07/17 15:00 23:00 07:00 Intake Total 1405 ml 1020 ml 631.0 ml Output Total 765 ml 895 ml 895 ml Balance 640 ml 125 ml -264.0 ml Results Result Diagram: 11/07/17 0400 11/07/17 0400 Results 24 hrs Laboratory Tests Test 11/06/17 14:03 11/06/17 22:24 11/07/17 02:24 11/07/17 04:00 Bedside Glucose 112 116 105 White Blood Count 10.3 Red Blood Count 4.73 Hemoglobin 11.5 L Hematocrit 38.7 L Mean Corpuscular Volume 81.8 L Mean Corpuscular Hemoglobin 24.3 L Mean Corpuscular Hemoglobin Concent 29.7 L Red Cell Distribution Width 17.5 H Platelet Count 489 H Mean Platelet Volume 11.1 H Neutrophils % 62.3 Lymphocytes % 20.4 Monocytes % 12.5 H Eosinophils % 3.2 Basophils % 1.0 Nucleated Red Blood Cells % 0.0 Neutrophils # 6.4 Lymphocytes # 2.1 Monocytes # 1.3 H Eosinophils # 0.3 Basophils # 0.1 Nucleated Red Blood Cells # 0.0 Sodium Level 146 H Potassium Level 4.0 Chloride Level 93 L Carbon Dioxide Level Anion Gap 13 Blood Urea Nitrogen 19 Creatinine 0.85 Glucose Level 113 Calcium Level 9.4 Test 11/07/17 05:27 Bedside Glucose 104 Medications Medications Current Medications Ondansetron HCl (Zofran Inj) 4 mg Q6H PRN IV NAUSEA AND/OR VOMITING Last administered on 11/02/17 13:46; Admin Dose 4 MG; Start 10/14/17 at 21:30 Nitroglycerin (Nitroglycerin (Sl Tab) 0.4 Mg) 1 tab Q5M PRN SL CHEST PAIN; Start 10/14/17 at 21:30 Acetaminophen (Tylenol Tab) 650 mg Q6H PRN PO PAIN LEVEL 1-3 OR FEVER Last administered on 11/05/17 20:21; Admin Dose 650 MG; Start 10/14/17 at 21:30 Morphine Sulfate (morphine) 2 mg Q4H PRN IV PAIN LEVEL 7-10 Last administered on 11/01/17 20:31; Admin Dose 2 MG; Start 10/16/17 at 00:00 Multi-Ingredient Ointment (Eucerin Cream) 1 applic BID TOP Last administered on 11/07/17 09:07; Admin Dose 1 APPLIC; Start 10/16/17 at 09:00 Triamcinolone Acetonide (Kenalog 0.1% Oint) 1 applic BID TOP Last administered on 11/07/17 09:09; Admin Dose 1 APPLIC; Start 10/16/17 at 14:00 Famotidine 20 mg 20 mg HS GTB Last administered on 11/06/17 20:52; Admin Dose 20 MG; Start 10/17/17 at 21:00 Fentanyl (Sublimaze) 100 ml @ 2.5 mls/hr TITRATE IV Last administered on 20:13; Admin Dose 5 MLS/HR; Start 10/18/17 at 10:00 Diagnostic Test (Pha) (Accu-Chek) 1 ea 02 XX Last administered on 11/07/17 02: 52; Admin Dose 1 EA; Start 10/20/17 at 02:00 Miscellaneous Information 1 ea NOTE XX ; Start 10/19/17 at 18:00 Glucose (Glutose) 15 gm Q15M PRN PO DECREASED GLUCOSE; Start 10/19/17 at 18:00 Glucose (Glutose) 22.5 gm Q15M PRN PO DECREASED GLUCOSE; Start 10/19/17 at 18: 00 Dextrose (D50w Syringe) 25 ml Q15M PRN IV DECREASED GLUCOSE; Start 10/19/17 at 18:00 Dextrose (D50w Syringe) 50 ml Q15M PRN IV DECREASED GLUCOSE; Start 10/19/17 at 18:00 Glucagon (Glucagen) 1 mg Q15M PRN IM DECREASED GLUCOSE; Start 10/19/17 at 18: 00 Glucose 15 gm 15 gm Q15M PRN BUCCAL DECREASED GLUCOSE; Start 10/19/17 at 18:00 Midazolam HCl (Versed) 50 ml @ 1 mls/hr TITRATE IV Last administered on 02:29; Admin Dose 5 MLS/HR; Start 10/21/17 at 09:30 IV Flush (NS 10 ml) 10 ml PRN PRN IV IV PROTOCOL; Start 10/22/17 at 19:00 Insulin Aspart (Novolog Insulin Pen) NOVOLOG *MILD* ALGORI... Q8 SC ; Start at 22:00 Docusate Sodium (Colace Liquid Cup) 100 mg BID GTB Last administered on 09:06; Admin Dose 100 MG; Start 10/24/17 at 21:00 Enoxaparin Sodium (Lovenox) 40 mg DAILY SC Last administered on 11/07/17 09:06 ; Admin Dose 40 MG; Start 11/04/17 at 09:00 Lansoprazole (Prevacid) 30 mg BID@,18 GTB Last administered on 11/07/17 05: 28; Admin Dose 30 MG; Start 11/04/17 at 18:00 Lorazepam (Ativan) 2 mg Q3H PRN IV AGITATION/ANXIETY Last administered on 08:00; Admin Dose 2 MG; Start 11/05/17 at 22:00 Citalopram Hydrobromide (Celexa) 20 mg DAILY GTB Last administered on 09:06; Admin Dose 20 MG; Start 11/06/17 at 15:00 DOLLY ESCOBEDO Nov 07, 2017 09:25
--- NOTE | 2017-11-07 09:50 | CONS ---
Date/Time of Note Date/Time of Note DATE: 11/07/17 TIME: 09:48 Consult Date/Type/Reason Admit Date/Time Oct 14, 2017 at 20:55 Type of Consultation: Pulmonary/CCM Subjective More alert today. Continues low-dose fentanyl Objective Vital Signs Date Time Temp Pulse Resp B/P Pulse Ox O2 Delivery O2 Flow Rate FiO2 11/07/17 06:00 97 18 132/84 98 Mechanical Ventilator 11/07/17 05:10 30 11/07/17 04:00 99.5 Intake and Output 11/06/17 11/06/17 11/07/17 15:00 23:00 07:00 Intake Total 1405 ml 1020 ml 631.0 ml Output Total 765 ml 895 ml 895 ml Balance 640 ml 125 ml -264.0 ml Exam GENERAL: Morbidly obese gentleman on mechanical ventilation via tracheostomy VITAL SIGNS: per chart NECK: Supple. No JVD or lymphadenopathy. CARDIAC EXAM: S1, S2. No added sounds or murmurs. CHEST: clear bilaterally, No added sounds, rales or wheezes ABDOMEN: Soft, nontender. No guarding or rebound. EXTREMITIES: No cyanosis, clubbing edema +3 NEUROLOGIC: Generalized weakness. No focal deficits. Results/Medications Result Diagram: 11/07/17 0400 11/07/17 0400 Results 24 hrs Laboratory Tests Test 11/06/17 14:03 11/06/17 22:24 11/07/17 02:24 11/07/17 04:00 Bedside Glucose 112 116 105 White Blood Count 10.3 Red Blood Count 4.73 Hemoglobin 11.5 L Hematocrit 38.7 L Mean Corpuscular Volume 81.8 L Mean Corpuscular Hemoglobin 24.3 L Mean Corpuscular Hemoglobin Concent 29.7 L Red Cell Distribution Width 17.5 H Platelet Count 489 H Mean Platelet Volume 11.1 H Neutrophils % 62.3 Lymphocytes % 20.4 Monocytes % 12.5 H Eosinophils % 3.2 Basophils % 1.0 Nucleated Red Blood Cells % 0.0 Neutrophils # 6.4 Lymphocytes # 2.1 Monocytes # 1.3 H Eosinophils # 0.3 Basophils # 0.1 Nucleated Red Blood Cells # 0.0 Sodium Level 146 H Potassium Level 4.0 Chloride Level 93 L Carbon Dioxide Level Anion Gap 13 Blood Urea Nitrogen 19 Creatinine 0.85 Glucose Level 113 Calcium Level 9.4 Test 11/07/17 05:27 Bedside Glucose 104 Medications Current Medications Ondansetron HCl (Zofran Inj) 4 mg Q6H PRN IV NAUSEA AND/OR VOMITING Last administered on 11/02/17 13:46; Admin Dose 4 MG; Start 10/14/17 at 21:30 Nitroglycerin (Nitroglycerin (Sl Tab) 0.4 Mg) 1 tab Q5M PRN SL CHEST PAIN; Start 10/14/17 at 21:30 Acetaminophen (Tylenol Tab) 650 mg Q6H PRN PO PAIN LEVEL 1-3 OR FEVER Last administered on 11/05/17 20:21; Admin Dose 650 MG; Start 10/14/17 at 21:30 Multi-Ingredient Ointment (Eucerin Cream) 1 applic BID TOP Last administered on 11/07/17 09:07; Admin Dose 1 APPLIC; Start 10/16/17 at 09:00 Triamcinolone Acetonide (Kenalog 0.1% Oint) 1 applic BID TOP Last administered on 11/07/17 09:09; Admin Dose 1 APPLIC; Start 10/16/17 at 14:00 Famotidine 20 mg 20 mg HS GTB Last administered on 11/06/17 20:52; Admin Dose 20 MG; Start 10/17/17 at 21:00 Fentanyl (Sublimaze) 100 ml @ 2.5 mls/hr TITRATE IV Last administered on 20:13; Admin Dose 5 MLS/HR; Start 10/18/17 at 10:00 Diagnostic Test (Pha) (Accu-Chek) 1 ea 02 XX Last administered on 11/07/17 02: 52; Admin Dose 1 EA; Start 10/20/17 at 02:00 Miscellaneous Information 1 ea NOTE XX ; Start 10/19/17 at 18:00 Glucose (Glutose) 15 gm Q15M PRN PO DECREASED GLUCOSE; Start 10/19/17 at 18:00 Glucose (Glutose) 22.5 gm Q15M PRN PO DECREASED GLUCOSE; Start 10/19/17 at 18: 00 Dextrose (D50w Syringe) 25 ml Q15M PRN IV DECREASED GLUCOSE; Start 10/19/17 at 18:00 Dextrose (D50w Syringe) 50 ml Q15M PRN IV DECREASED GLUCOSE; Start 10/19/17 at 18:00 Glucagon (Glucagen) 1 mg Q15M PRN IM DECREASED GLUCOSE; Start 10/19/17 at 18: 00 Glucose 15 gm 15 gm Q15M PRN BUCCAL DECREASED GLUCOSE; Start 10/19/17 at 18:00 Midazolam HCl (Versed) 50 ml @ 1 mls/hr TITRATE IV Last administered on 02:29; Admin Dose 5 MLS/HR; Start 10/21/17 at 09:30 IV Flush (NS 10 ml) 10 ml PRN PRN IV IV PROTOCOL; Start 10/22/17 at 19:00 Insulin Aspart (Novolog Insulin Pen) NOVOLOG *MILD* ALGORI... Q8 SC ; Start at 22:00 Docusate Sodium (Colace Liquid Cup) 100 mg BID GTB Last administered on 09:06; Admin Dose 100 MG; Start 10/24/17 at 21:00 Enoxaparin Sodium (Lovenox) 40 mg DAILY SC Last administered on 11/07/17 09:06 ; Admin Dose 40 MG; Start 11/04/17 at 09:00 Lansoprazole (Prevacid) 30 mg BID@06,18 GTB Last administered on 11/07/17 05: 28; Admin Dose 30 MG; Start 11/04/17 at 18:00 Lorazepam (Ativan) 2 mg Q3H PRN IV AGITATION/ANXIETY Last administered on 08:00; Admin Dose 2 MG; Start 11/05/17 at 22:00 Citalopram Hydrobromide (Celexa) 20 mg DAILY GTB Last administered on 09:06; Admin Dose 20 MG; Start 11/06/17 at 15:00 Morphine Sulfate (morphine) 2 mg Q2H PRN IV PAIN; Start 11/07/17 at 10:00; Status UNV Assessment/Plan Chief Complaint/Hosp Course IMP: 1. Acute on chronic hypercapnic respiratory failure/Failure to wean--s/p trach 2. HFpEF 3. Likely JANA/OHS 4. Possible thromboembolic disease 5. HyperNa+ PLAN: 1. Try SIMV with PS 3. Bronchodilators/trach care 4. Change diuresis to lasix 40 IV BID 5. Deep venous thrombosis and gastrointestinal prophylaxis. 6. Decrease sedation as tolerated. 7. Wean off fentanyl morphine as needed. Problems: BRIGETTE CODY MD, [facility] Nov 07, 2017 09:50
[2017-11-07] MEDS ORDERED: DEXTROSE 5% 1,000 ML IV SCH (10:00)
--- NOTE | 2017-11-07 10:19 | RADRPT ---
PROCEDURE: XR Chest. CLINICAL INDICATION: Respiratory failure TECHNIQUE: Single frontal view of the chest was obtained COMPARISON: 11/03/2017 FINDINGS: Stable tracheostomy tube. Redemonstration of moderate to severe interstitial/alveolar pulmonary edema, which is minimally impr luis. Stable bilateral pleural effusions. Stable enlarged cardiomediastinal silhouette. No acute osseous abnormality. IMPRESSION: Minimal improvement in this moderate to severe interstitial/alveolar pulmonary edema with bilateral pleural effusions. Superimposed infection to be determined clinically. Otherwise, no convincing inte rval change compared to chest radiograph dated 11/03/2017. RPTAT: EE Physician Sanjeev Date Time Electronically viewed and signed by Jada Salgado Physician on 11/07/2017 10:18 /
[2017-11-07] MEDS: morphine 2 MG INJ IV PRN ×3 (10:34→18:34)
[2017-11-07] MEDS: FENTAnyl (DRIP) 1000 mcg/100mL 100 ML IV SCH (17:34)
[2017-11-07] MEDS: FAMOTIDINE 20 MG TAB GTB SCH (21:46)
[2017-11-08] VITALS (48 sets, daily range): BP systolic 113–190; BP diastolic 59–121; PULSE 82–129; RESP 13–22
[2017-11-08] MEDS: EUCERIN 113 GM CR TOP SCH ×3 (01:59→21:33)
[2017-11-08] MEDS: TRIAMCINOLONE ACET 0.1% 15 GM OINT TOP SCH ×3 (01:59→21:33)
[2017-11-08] MEDS: ACCU-CHEK XX SCH (02:03)
[2017-11-08] MEDS: FENTAnyl (DRIP) 1000 mcg/100mL 100 ML IV SCH ×2 (05:27→17:23)
[2017-11-08 05:43] LABS: BASOPHIL # 0.1 10^3/ul (0.0-0.1); EOSINOPHILS # 0.5 10^3/ul (0.0-0.5); EOSINOPHILS % 4.3 % (0.0-7.0); HEMATOCRIT 38.8 % (42.0-52.0); HEMOGLOBIN 11.8 g/dl (14.0-18.0); LYMPHOCYTES # 2.7 10^3/ul (0.8-2.9); MEAN CORPUSCULAR HEMOGLOBIN 24.8 pg (29.0-33.0); MEAN CORPUSCULAR HGB CONC 30.4 g/dl (32.0-37.0); MEAN CORPUSCULAR VOLUME 81.7 fl (82.0-101.0); MEAN PLATELET VOLUME 11.2 fl (7.4-10.4); MONOCYTE # 1.3 10^3/ul (0.3-0.9); MONOCYTES % 11.5 % (0.0-11.0); NEUTROPHIL # 6.5 10^3/ul (1.6-7.5); NEUTROPHILS % 58.7 % (39.0-77.0); PLATELET COUNT 447 10^3/UL (140-415); RED BLOOD COUNT 4.75 10^6/ul (4.70-6.10); RED CELL DISTRIBUTION WIDTH 17.4 % (11.5-14.5); WHITE BLOOD COUNT 11.1 10^3/ul (4.8-10.8)
[2017-11-08] MEDS: LANSOPRAZOLE 30 MG CAP GTB SCH ×2 (05:53→17:40)
[2017-11-08] MEDS: FUROSEMIDE 40 MG INJ IV SCH (05:53)
[2017-11-08] MEDS: LORAZEPAM 2 MG INJ IV PRN ×3 (05:55→21:45)
[2017-11-08 06:18] LABS: CALCIUM 9.3 mg/dl (8.4-10.2); CREATININE 0.89 mg/dl (0.61-1.24); POTASSIUM 3.8 mmol/L (3.5-5.1)
[2017-11-08] MEDS: morphine 2 MG INJ IV PRN ×2 (07:14→11:00)
[2017-11-08] MEDS: INSULIN ASPART [NOVOLOG] 3 ML PEN SC SCH ×3 (07:20→21:33)
[2017-11-08] MEDS: CITALOPRAM 20 MG TAB GTB SCH (08:44)
[2017-11-08] MEDS: ENOXAPARIN 40 MG/0.4 ML SYG SC SCH (08:45)
[2017-11-08] MEDS: DOCUSATE SODIUM 10 MG/ML (10ML CUP) GTB SCH ×2 (08:45→21:32)
--- NOTE | 2017-11-08 10:47 | PN ---
Date/Time of Note Date/Time of Note DATE: 11/08/17 TIME: 10:42 Assessment/Plan VTE Prophylaxis VTE Prophylaxis Intervention: LMWH Lines/Catheters IV Catheter Type (from Nrs): PICC Line Central line still needed: Yes Urinary Cath still in place: Yes Reason Cath still needed: urinary retention Assessment/Plan Chief Complaint/Hosp Course S: No acute events overnight, patient still getting agitated at times, especially when trying to be weaned off sedation. O: VS (see below) PE: Lying in bed, morbidly obese, NAD trach in place Supple some B/L distant lung sounds some distant heart sounds no rashes LE unchanged Assessment/Plan: 47 yo M with super morbid obesity, DM presented to SOB intubated initially for airway protection in setting of CO2 narcosis, now s/p trach/PEG placement. 1. SOB/res failure: Acute on chronic hypercapnic respiratory failure. Pulmonary edema and pneumonia S/P abx tx as well - ruled out for acute PR during this hospital stay. -continue trach, follow pulmonary recommendations -Continue diuretics for now (lasix IV BID) -Try to wean sedation as tolerated -continue PT 2. possible DVT/ PE?: Apparently wells score at time of admission 3, indicating moderate probability for PE at that time. Lower extremity ultrasounds results on 10/15/17 were inconclusive. Patient apparently too large to fit in CT scanner, so CTA has not able to be performed during this hospital stay. Pt earlier had been on LMWH treatment dose but GI recommends against this now given the fact that patient has antral ulcer, although nonbleeding ulcer presently. Patient also previously this admission had some ET tube bleeding while on tx dose anticoagulation when he was intubated at that time, although none presently. Latest lower extremity bilateral ultrasound from November 04 negative for DVT. -again we are holding treatment dose anticoagulation given the fact of antral ulcer present and because of negative LE U/S study results at this point for any DVT or PE present. -Will need larger machine (likely as an outpatient) to definitively determine if there is pulmonary embolism present. - for now just continue Lovenox 40 mg Sub Q daily - monitor for any bleeding * Note: (If it is determined, however, that patient would need anticoagulation for DVT or PE treatment, would recommend against Coumadin as outpatient given patient's history of noncompliance. Instead, per discussion with pharmacy and pulmonary teams 2 weeks ago, if patient able to be extubated and take oral medicines, would recommend transition to either Eliquis or Xarelto at that time instead bc even though apparently not recommended to use NOAC if BMI >40, recent studies do indicate checking drug specific peak and trough levels on occasion for these medicines if having to use DOAC in patients with BMI greater than 40. Given this patient's history of noncompliance, DOAC would be more beneficial to this patient versus Coumadin as an outpatient). * 3. LE wounds: Continue wound care per wound care team. 4. DM2: cont SSI as needed 5. hypernatremia -slightly improved today (145), did get D5W IV fluids yesterday 6 hour -Monitor 6. Antral ulcer: Nonbleeding - continue Pepcid twice daily, follow GI recommendations CM; placement to LTAC vs SNF - f/u with CM on this. WEAN SEDATION as tolerated, also now on SSRI for signs of depression critical care time: 45 minutes Problems: Exam/Review of Systems Vital Signs Vitals Vital Signs Date Time Temp Pulse Resp B/P Pulse Ox O2 Delivery O2 Flow Rate FiO2 11/08/17 09:00 98 18 134/90 90 Mechanical Ventilator 11/08/17 08:00 30 11/08/17 08:00 99.4 Intake and Output 11/07/17 11/07/17 11/08/17 15:00 23:00 07:00 Intake Total 802 ml 687 ml 865 ml Output Total 675 ml 1200 ml 900 ml Balance 127 ml -513 ml -35 ml Results Result Diagram: 11/08/17 0435 11/08/17 0435 Results 24 hrs Laboratory Tests Test 11/07/17 13:51 11/07/17 23:26 11/08/17 02:03 11/08/17 04:35 Bedside Glucose 117 123 103 White Blood Count 11.1 H Red Blood Count 4.75 Hemoglobin 11.8 L Hematocrit 38.8 L Mean Corpuscular Volume 81.7 L Mean Corpuscular Hemoglobin 24.8 L Mean Corpuscular Hemoglobin Concent 30.4 L Red Cell Distribution Width 17.4 H Platelet Count 447 H Mean Platelet Volume 11.2 H Neutrophils % 58.7 Lymphocytes % 24.0 Monocytes % 11.5 H Eosinophils % 4.3 Basophils % 1.0 Nucleated Red Blood Cells % 0.0 Neutrophils # 6.5 Lymphocytes # 2.7 Monocytes # 1.3 H Eosinophils # 0.5 Basophils # 0.1 Nucleated Red Blood Cells # 0.0 Sodium Level 145 H Potassium Level 3.8 Chloride Level 92 L Carbon Dioxide Level 44 *H Anion Gap 13 Blood Urea Nitrogen 21 H Creatinine 0.89 Glucose Level 113 Calcium Level 9.3 Test 11/08/17 07:20 Bedside Glucose 111 Medications Medications Current Medications Ondansetron HCl (Zofran Inj) 4 mg Q6H PRN IV NAUSEA AND/OR VOMITING Last administered on 11/02/17 13:46; Admin Dose 4 MG; Start 10/14/17 at 21:30 Nitroglycerin (Nitroglycerin (Sl Tab) 0.4 Mg) 1 tab Q5M PRN SL CHEST PAIN; Start 10/14/17 at 21:30 Acetaminophen (Tylenol Tab) 650 mg Q6H PRN PO PAIN LEVEL 1-3 OR FEVER Last administered on 11/05/17 20:21; Admin Dose 650 MG; Start 10/14/17 at 21:30 Multi-Ingredient Ointment (Eucerin Cream) 1 applic BID TOP Last administered on 11/08/17 08:46; Admin Dose 1 APPLIC; Start 10/16/17 at 09:00 Triamcinolone Acetonide (Kenalog 0.1% Oint) 1 applic BID TOP Last administered on 11/08/17 08:46; Admin Dose 1 APPLIC; Start 10/16/17 at 14:00 Famotidine 20 mg 20 mg HS GTB Last administered on 11/07/17 21:46; Admin Dose 20 MG; Start 10/17/17 at 21:00 Fentanyl (Sublimaze) 100 ml @ 2.5 mls/hr TITRATE IV Last administered on 05:27; Admin Dose 10 MLS/HR; Start 10/18/17 at 10:00 Diagnostic Test (Pha) (Accu-Chek) 1 ea 02 XX Last administered on 11/08/17 02: 03; Admin Dose 1 EA; Start 10/20/17 at 02:00 Miscellaneous Information 1 ea NOTE XX ; Start 10/19/17 at 18:00 Glucose (Glutose) 15 gm Q15M PRN PO DECREASED GLUCOSE; Start 10/19/17 at 18:00 Glucose (Glutose) 22.5 gm Q15M PRN PO DECREASED GLUCOSE; Start 10/19/17 at 18: 00 Dextrose (D50w Syringe) 25 ml Q15M PRN IV DECREASED GLUCOSE; Start 10/19/17 at 18:00 Dextrose (D50w Syringe) 50 ml Q15M PRN IV DECREASED GLUCOSE; Start 10/19/17 at 18:00 Glucagon (Glucagen) 1 mg Q15M PRN IM DECREASED GLUCOSE; Start 10/19/17 at 18: 00 Glucose 15 gm 15 gm Q15M PRN BUCCAL DECREASED GLUCOSE; Start 10/19/17 at 18:00 Midazolam HCl (Versed) 50 ml @ 1 mls/hr TITRATE IV Last administered on 02:29; Admin Dose 5 MLS/HR; Start 10/21/17 at 09:30 IV Flush (NS 10 ml) 10 ml PRN PRN IV IV PROTOCOL; Start 10/22/17 at 19:00 Insulin Aspart (Novolog Insulin Pen) NOVOLOG *MILD* ALGORI... Q8 SC ; Start at 22:00 Docusate Sodium (Colace Liquid Cup) 100 mg BID GTB Last administered on 08:45; Admin Dose 100 MG; Start 10/24/17 at 21:00 Enoxaparin Sodium (Lovenox) 40 mg DAILY SC Last administered on 11/08/17 08:45 ; Admin Dose 40 MG; Start 11/04/17 at 09:00 Lansoprazole (Prevacid) 30 mg BID@06,18 GTB Last administered on 11/08/17 05: 53; Admin Dose 30 MG; Start 11/04/17 at 18:00 Lorazepam (Ativan) 2 mg Q3H PRN IV AGITATION/ANXIETY Last administered on 10:04; Admin Dose 2 MG; Start 11/05/17 at 22:00 Citalopram Hydrobromide (Celexa) 20 mg DAILY GTB Last administered on 08:44; Admin Dose 20 MG; Start 11/06/17 at 15:00 Morphine Sulfate (morphine) 2 mg Q2H PRN IV PAIN Last administered on 07:14; Admin Dose 2 MG; Start 11/07/17 at 10:00 DOLLY ESCOBEDO 8, 2017 10:47
--- NOTE | 2017-11-08 11:17 | PN ---
Date/Time of Note Date/Time of Note DATE: 11/08/17 TIME: 11:17 Assessment/Plan Lines/Catheters IV Catheter Type (from Nrsg): PICC Line Fierro in Place (from Nrsg): Yes Assessment/Plan Chief Complaint/Hosp Course IMPRESSION: Respiratory failure. SP Tracheostomy will continue vent support Pul toilet Problems: Subjective 24 Hr Interval Summary Constitutional: improved Pain Control: mild Exam/Review of Systems Vital Signs Vitals Vital Signs Date Time Temp Pulse Resp B/P Pulse Ox O2 Delivery O2 Flow Rate FiO2 11/08/17 09:00 98 18 134/90 90 Mechanical Ventilator 11/08/17 08:00 30 11/08/17 08:00 99.4 Intake and Output 11/07/17 11/07/17 11/08/17 14:59 22:59 06:59 Intake Total 802 ml 681 ml 875 ml Output Total 675 ml 1050 ml 900 ml Balance 127 ml -369 ml -25 ml Exam Neck: non-tender, supple Respiratory: clear to auscultation, normal air movement Cardiovascular: nl pulses, regular rate and rhythm Gastrointestinal: nl liver, spleen, non-tender, soft Results Result Diagram: 11/08/17 0435 11/08/17 0435 DRISS JIMENEZ MD Nov 08, 2017 11:17
--- NOTE | 2017-11-08 11:27 | CONS ---
Date/Time of Note Date/Time of Note DATE: 11/08/17 TIME: 11:25 Consult Date/Type/Reason Admit Date/Time Oct 14, 2017 at 20:55 Type of Consultation: Pulmonary/CCM Subjective Patient has significant agitation overnight. Required increased dose of sedation and pain control. This morning intermittent agitation noted. Objective Vital Signs Date Time Temp Pulse Resp B/P Pulse Ox O2 Delivery O2 Flow Rate FiO2 11/08/17 09:00 98 18 134/90 90 Mechanical Ventilator 11/08/17 08:00 30 11/08/17 08:00 99.4 Intake and Output 11/07/17 11/07/17 11/08/17 14:59 22:59 06:59 Intake Total 802 ml 681 ml 875 ml Output Total 675 ml 1050 ml 900 ml Balance 127 ml -369 ml -25 ml Exam GENERAL: Morbidly obese gentleman on mechanical ventilation via tracheostomy VITAL SIGNS: per chart NECK: Supple. No JVD or lymphadenopathy. CARDIAC EXAM: S1, S2. No added sounds or murmurs. CHEST: clear bilaterally, No added sounds, rales or wheezes ABDOMEN: Soft, nontender. No guarding or rebound. EXTREMITIES: No cyanosis, clubbing edema +3 NEUROLOGIC: Generalized weakness. No focal deficits. Results/Medications Result Diagram: 11/08/17 0435 11/08/17 0435 Results 24 hrs Laboratory Tests Test 11/07/17 13:51 11/07/17 23:26 11/08/17 02:03 11/08/17 04:35 Bedside Glucose 117 123 103 White Blood Count 11.1 H Red Blood Count 4.75 Hemoglobin 11.8 L Hematocrit 38.8 L Mean Corpuscular Volume 81.7 L Mean Corpuscular Hemoglobin 24.8 L Mean Corpuscular Hemoglobin Concent 30.4 L Red Cell Distribution Width 17.4 H Platelet Count 447 H Mean Platelet Volume 11.2 H Neutrophils % 58.7 Lymphocytes % 24.0 Monocytes % 11.5 H Eosinophils % 4.3 Basophils % 1.0 Nucleated Red Blood Cells % 0.0 Neutrophils # 6.5 Lymphocytes # 2.7 Monocytes # 1.3 H Eosinophils # 0.5 Basophils # 0.1 Nucleated Red Blood Cells # 0.0 Sodium Level 145 H Potassium Level 3.8 Chloride Level 92 L Carbon Dioxide Level 44 *H Anion Gap 13 Blood Urea Nitrogen 21 H Creatinine 0.89 Glucose Level 113 Calcium Level 9.3 Test 11/08/17 07:20 Bedside Glucose 111 Medications Current Medications Ondansetron HCl (Zofran Inj) 4 mg Q6H PRN IV NAUSEA AND/OR VOMITING Last administered on 11/02/17 13:46; Admin Dose 4 MG; Start 10/14/17 at 21:30 Nitroglycerin (Nitroglycerin (Sl Tab) 0.4 Mg) 1 tab Q5M PRN SL CHEST PAIN; Start 10/14/17 at 21:30 Acetaminophen (Tylenol Tab) 650 mg Q6H PRN PO PAIN LEVEL 1-3 OR FEVER Last administered on 11/05/17 20:21; Admin Dose 650 MG; Start 10/14/17 at 21:30 Multi-Ingredient Ointment (Eucerin Cream) 1 applic BID TOP Last administered on 11/08/17 08:46; Admin Dose 1 APPLIC; Start 10/16/17 at 09:00 Triamcinolone Acetonide (Kenalog 0.1% Oint) 1 applic BID TOP Last administered on 11/08/17 08:46; Admin Dose 1 APPLIC; Start 10/16/17 at 14:00 Famotidine 20 mg 20 mg HS GTB Last administered on 11/07/17 21:46; Admin Dose 20 MG; Start 10/17/17 at 21:00 Fentanyl (Sublimaze) 100 ml @ 2.5 mls/hr TITRATE IV Last administered on 05:27; Admin Dose 10 MLS/HR; Start 10/18/17 at 10:00 Diagnostic Test (Pha) (Accu-Chek) 1 ea 02 XX Last administered on 11/08/17 02: 03; Admin Dose 1 EA; Start 10/20/17 at 02:00 Miscellaneous Information 1 ea NOTE XX ; Start 10/19/17 at 18:00 Glucose (Glutose) 15 gm Q15M PRN PO DECREASED GLUCOSE; Start 10/19/17 at 18:00 Glucose (Glutose) 22.5 gm Q15M PRN PO DECREASED GLUCOSE; Start 10/19/17 at 18: 00 Dextrose (D50w Syringe) 25 ml Q15M PRN IV DECREASED GLUCOSE; Start 10/19/17 at 18:00 Dextrose (D50w Syringe) 50 ml Q15M PRN IV DECREASED GLUCOSE; Start 10/19/17 at 18:00 Glucagon (Glucagen) 1 mg Q15M PRN IM DECREASED GLUCOSE; Start 10/19/17 at 18: 00 Glucose 15 gm 15 gm Q15M PRN BUCCAL DECREASED GLUCOSE; Start 10/19/17 at 18:00 Midazolam HCl (Versed) 50 ml @ 1 mls/hr TITRATE IV Last administered on 02:29; Admin Dose 5 MLS/HR; Start 10/21/17 at 09:30 IV Flush (NS 10 ml) 10 ml PRN PRN IV IV PROTOCOL; Start 10/22/17 at 19:00 Insulin Aspart (Novolog Insulin Pen) NOVOLOG *MILD* ALGORI... Q8 SC ; Start at 22:00 Docusate Sodium (Colace Liquid Cup) 100 mg BID GTB Last administered on 08:45; Admin Dose 100 MG; Start 10/24/17 at 21:00 Enoxaparin Sodium (Lovenox) 40 mg DAILY SC Last administered on 11/08/17 08:45 ; Admin Dose 40 MG; Start 11/04/17 at 09:00 Lansoprazole (Prevacid) 30 mg BID@06,18 GTB Last administered on 11/08/17 05: 53; Admin Dose 30 MG; Start 11/04/17 at 18:00 Lorazepam (Ativan) 2 mg Q3H PRN IV AGITATION/ANXIETY Last administered on 10:04; Admin Dose 2 MG; Start 11/05/17 at 22:00 Citalopram Hydrobromide (Celexa) 20 mg DAILY GTB Last administered on 08:44; Admin Dose 20 MG; Start 11/06/17 at 15:00 Morphine Sulfate (morphine) 2 mg Q2H PRN IV PAIN Last administered on 11:00; Admin Dose 2 MG; Start 11/07/17 at 10:00 Assessment/Plan Chief Complaint/Hosp Course IMP: 1. Acute on chronic hypercapnic respiratory failure/Failure to wean--s/p trach 2. HFpEF 3. Likely JANA/OHS 4. Possible thromboembolic disease 5. Worsening metabolic alkalosis compensating for chronic respiratory acidosis. PLAN: 1. Continue AC mechanical ventilation. Failed SIMV. 3. Bronchodilators/trach care 4. Decrease diuretics possible contraction alkalosis. 5. Deep venous thrombosis and gastrointestinal prophylaxis. 6. Decrease sedation as tolerated. 7. Wean off fentanyl morphine as needed. 8. Trial of Seroquel. Problems: BRIGETTE CODY MD, [facility] Nov 08, 2017 11:27
[2017-11-08] MEDS: QUETIAPINE 100 MG TAB GTB SCH (11:41)
[2017-11-08 12:54] LABS: AADO2 Arterial 89.7 mmHg (7.0-24.0); Allen Test ACCEPTAB; Arterial Base Excess 12.4 mmol/L (-3.0-3); Arterial COHb 0.4 % (0.0-3.0); Arterial Fraction of Oxyhgb 91.9 % (93.0-99.0); Arterial HCO3 37.7 mmol/L (22.0-26.0); Arterial MetHb 0 % (0.0-1.5); Arterial Total Hemglobin 12.9 g/dl (12.0-18.0); MODE VENT - AC
[2017-11-08] MEDS: FAMOTIDINE 20 MG TAB GTB SCH (21:32)
[2017-11-09] VITALS (61 sets, daily range): BP systolic 116–162; BP diastolic 69–130; PULSE 76–102; RESP 0–36
[2017-11-09] MEDS: LORAZEPAM 2 MG INJ IV PRN ×5 (01:10→23:52)
[2017-11-09] MEDS: ACCU-CHEK XX SCH (02:00)
[2017-11-09] MEDS: INSULIN ASPART [NOVOLOG] 3 ML PEN SC SCH ×3 (06:00→21:29)
[2017-11-09] MEDS: FENTAnyl (DRIP) 1000 mcg/100mL 100 ML IV SCH (06:36)
[2017-11-09] MEDS: LANSOPRAZOLE 30 MG CAP GTB SCH ×2 (06:37→19:09)
[2017-11-09 07:01] LABS: BASOPHIL # 0.1 10^3/ul (0.0-0.1); BASOPHILS % 0.9 % (0.0-2.0); EOSINOPHILS # 0.5 10^3/ul (0.0-0.5); EOSINOPHILS % 4.2 % (0.0-7.0); HEMATOCRIT 38.1 % (42.0-52.0); HEMOGLOBIN 11.5 g/dl (14.0-18.0); LYMPHOCYTES # 2.6 10^3/ul (0.8-2.9); LYMPHOCYTES % 23.8 % (15.0-51.0); MEAN CORPUSCULAR HEMOGLOBIN 24.8 pg (29.0-33.0); MEAN CORPUSCULAR HGB CONC 30.2 g/dl (32.0-37.0); MEAN CORPUSCULAR VOLUME 82.3 fl (82.0-101.0); MEAN PLATELET VOLUME 11.4 fl (7.4-10.4); MONOCYTE # 1.2 10^3/ul (0.3-0.9); MONOCYTES % 10.8 % (0.0-11.0); NEUTROPHIL # 6.6 10^3/ul (1.6-7.5); NEUTROPHILS % 59.8 % (39.0-77.0); PLATELET COUNT 407 10^3/UL (140-415); RED BLOOD COUNT 4.63 10^6/ul (4.70-6.10); RED CELL DISTRIBUTION WIDTH 17.9 % (11.5-14.5)
[2017-11-09 07:34] LABS: CALCIUM 9.5 mg/dl (8.4-10.2); CREATININE 0.94 mg/dl (0.61-1.24); POTASSIUM 3.2 mmol/L (3.5-5.1)
--- NOTE | 2017-11-09 08:46 | RADRPT ---
PROCEDURE: XR Chest. CLINICAL INDICATION: Hypoxia and shortness of breath. TECHNIQUE: Single frontal view. COMPARISON: 11/07/2017. FINDINGS: The tracheostomy tube is in satisfactory position. There is mild pulmonary edema, unchanged. The heart is enlarged. There is calcification in the aorta consistent with atherosclerosis. There is no pleural effusion. There is no pneumothorax. IMPRESSION: 1. Tracheostomy tube. 2. Mild pulmonary edema, unchanged. 3. Cardiomegaly and atherosclerosis. 4. No change from the 11/07/2017 chest radiograph. RPTAT: QQ .Finn Santiago MD, MD Date Time Electronically viewed and signed by .Finn Santiago MD, MD on 11/09/2017 08:46 .R/
[2017-11-09] MEDS: QUETIAPINE 100 MG TAB GTB SCH (09:05)
[2017-11-09] MEDS: DOCUSATE SODIUM 10 MG/ML (10ML CUP) GTB SCH ×2 (09:05→21:27)
[2017-11-09] MEDS: ENOXAPARIN 40 MG/0.4 ML SYG SC SCH (09:06)
[2017-11-09] MEDS: EUCERIN 113 GM CR TOP SCH ×2 (09:07→21:28)
[2017-11-09] MEDS: TRIAMCINOLONE ACET 0.1% 15 GM OINT TOP SCH ×2 (09:07→21:28)
--- NOTE | 2017-11-09 09:14 | PN ---
Date/Time of Note Date/Time of Note DATE: 11/09/17 TIME: 09:14 Assessment/Plan Lines/Catheters IV Catheter Type (from Nrsg): PICC Line Fierro in Place (from Nrsg): Yes Assessment/Plan Chief Complaint/Hosp Course IMPRESSION: Respiratory failure. SP Tracheostomy will continue vent support Pul toilet Problems: Subjective 24 Hr Interval Summary Constitutional: improved Pain Control: mild Exam/Review of Systems Vital Signs Vitals Vital Signs Date Time Temp Pulse Resp B/P Pulse Ox O2 Delivery O2 Flow Rate FiO2 11/09/17 07:00 98.3 87 10 148/99 93 Trach Collar 11/09/17 05:18 30 Intake and Output 11/08/17 11/08/17 11/09/17 14:59 22:59 06:59 Intake Total 467.5 ml 512.5 ml 660.0 ml Output Total 750 ml 460 ml 270 ml Balance -282.5 ml 52.5 ml 390.0 ml Exam ENMT: mucosa pink and moist, nl external ears & nose, nl lips & teeth, nl nasal mucosa & septum Neck: non-tender, supple Respiratory: clear to auscultation, normal air movement Cardiovascular: nl pulses, regular rate and rhythm Results Result Diagram: 11/09/17 0540 11/09/17 0540 DRISS JIMENEZ MD Nov 09, 2017 09:14
--- NOTE | 2017-11-09 09:46 | PN ---
Date/Time of Note Date/Time of Note DATE: 11/09/17 TIME: 09:43 Assessment/Plan VTE Prophylaxis VTE Prophylaxis Intervention: LMWH Lines/Catheters IV Catheter Type (from Nrs): PICC Line Central line still needed: Yes Urinary Cath still in place: Yes Reason Cath still needed: urinary retention Assessment/Plan Chief Complaint/Hosp Course S: Patient still in restraints, became agitated when trying to clean patient yesterday. Failed SIMV trial yesterday. Still on fentanyl presently. Off of IV Lasix since yesterday now secondary to increased alkalosis. O: VS (see below) PE: Lying in bed, morbidly obese, NAD presently trach in place Supple some B/L distant lung sounds some distant heart sounds no rashes LE unchanged Assessment/Plan: 47 yo M with super morbid obesity, DM presented to SOB intubated initially for airway protection in setting of CO2 narcosis, now s/p trach/PEG placement. 1. SOB/res failure: Acute on chronic hypercapnic respiratory failure. Pulmonary edema and pneumonia S/P abx tx earlier this admission ruled out for acute MT during this hospital stay. -continue trach, follow pulmonary recommendations -Try to wean sedation as tolerated -continue PT 2. possible DVT/ PE?: Apparently wells score at time of admission 3, indicating moderate probability for PE at that time. Lower extremity ultrasounds results on 10/15/17 were inconclusive. Patient apparently too large to fit in CT scanner, so CTA has not able to be performed during this hospital stay. Pt earlier had been on LMWH treatment dose but GI recommends against this now given the fact that patient has antral ulcer, although nonbleeding ulcer presently. Patient also previously this admission had some ET tube bleeding while on tx dose anticoagulation when he was intubated at that time, although none presently. Latest lower extremity bilateral ultrasound from November 04 negative for DVT. -again we are holding treatment dose anticoagulation given the fact of antral ulcer present and because of negative LE U/S study results at this point for any DVT or PE present. -Will need larger machine (likely as an outpatient) to definitively determine if there is pulmonary embolism present. - for now just continue Lovenox 40 mg Sub Q daily - monitor for any bleeding -Today we will attempt VQ scan as well * Note: (If it is determined, however, that patient would need anticoagulation for DVT or PE treatment, would recommend against Coumadin as outpatient given patient's history of noncompliance. Instead, per discussion with pharmacy and pulmonary teams 2 weeks ago, if patient able to be extubated and take oral medicines, would recommend transition to either Eliquis or Xarelto at that time instead bc even though apparently not recommended to use NOAC if BMI >40, recent studies do indicate checking drug specific peak and trough levels on occasion for these medicines if having to use DOAC in patients with BMI greater than 40. Given this patient's history of noncompliance, DOAC would be more beneficial to this patient versus Coumadin as an outpatient). * 3. LE wounds: Continue wound care per wound care team, including creams for dry skin 4. DM2: cont SSI as needed 5. hypernatremia -slightly elevated 146 today -Monitor, consider 4-5 hour run of D5W IV fluids 6. Antral ulcer: Nonbleeding - continue Pepcid twice daily, follow GI recommendations placement to LTAC vs SNF when more medically stable f/u with CM on this. WEAN SEDATION as tolerated, also now on SSRI for signs of depression critical care time: 45 minutes Problems: Exam/Review of Systems Vital Signs Vitals Vital Signs Date Time Temp Pulse Resp B/P Pulse Ox O2 Delivery O2 Flow Rate FiO2 11/09/17 07:00 98.3 87 10 148/99 93 Trach Collar 11/09/17 05:18 30 Intake and Output 11/08/17 11/08/17 11/09/17 15:00 23:00 07:00 Intake Total 462.5 ml 520.0 ml 652.5 ml Output Total 600 ml 440 ml 265 ml Balance -137.5 ml 80.0 ml 387.5 ml Results Result Diagram: 11/09/17 0540 11/09/17 0540 Results 24 hrs Laboratory Tests Test 11/08/17 11:12 11/08/17 13:35 11/08/17 21:31 11/09/17 05:40 Blood Gas Specimen Source Blood arterial Arterial Blood Date Drawn 11/08/2017 12:30:13 PM Arterial Blood pH (Temp corrected) 7.485 H Arterial Blood pCO2 (Temp correct) 51.2 H Arterial Blood pO2 (Temp corrected) 64.0 L Arterial Blood HCO3 37.7 H Arterial Blood Base Excess 12.4 H Arterial Blood Oxygen Saturation 92.3 L Danyel Test ACCEPTAB Arterial Blood Gas Puncture Site Right Radial Arterial Blood Carboxyhemoglobin 0.4 Arterial Blood Methemoglobin 0 Blood Gas A-a O2 Differential 89.7 H Oxyhemoglobin Percent 91.9 L Total Hemoglobin 12.9 Blood Gas Temperature 37.0 Blood Gas Respiration Rate 18.0 Blood Gas Actual Respiration Rate 21 Blood Gas Modality VENT - AC FiO2 30.0 Blood Gas Tidal Volume 550.0 Blood Gas Notified Whom JLD Blood Gas Notified Time 11/08/2017 12:54:15 PM Bedside Glucose 114 112 White Blood Count 11.0 H Red Blood Count 4.63 L Hemoglobin 11.5 L Hematocrit 38.1 L Mean Corpuscular Volume 82.3 Mean Corpuscular Hemoglobin 24.8 L Mean Corpuscular Hemoglobin Concent 30.2 L Red Cell Distribution Width 17.9 H Platelet Count 407 Mean Platelet Volume 11.4 H Neutrophils % 59.8 Lymphocytes % 23.8 Monocytes % 10.8 Eosinophils % 4.2 Basophils % 0.9 Nucleated Red Blood Cells % 0.0 Neutrophils # 6.6 Lymphocytes # 2.6 Monocytes # 1.2 H Eosinophils # 0.5 Basophils # 0.1 Nucleated Red Blood Cells # 0.0 Sodium Level 146 H Potassium Level 3.2 L Chloride Level 92 L Carbon Dioxide Level 42 *H Anion Gap 15 Blood Urea Nitrogen 20 Creatinine 0.94 Glucose Level 109 Calcium Level 9.5 Test 11/09/17 06:38 Bedside Glucose 109 Medications Medications Current Medications Ondansetron HCl (Zofran Inj) 4 mg Q6H PRN IV NAUSEA AND/OR VOMITING Last administered on 11/02/17 13:46; Admin Dose 4 MG; Start 10/14/17 at 21:30 Nitroglycerin (Nitroglycerin (Sl Tab) 0.4 Mg) 1 tab Q5M PRN SL CHEST PAIN; Start 10/14/17 at 21:30 Acetaminophen (Tylenol Tab) 650 mg Q6H PRN PO PAIN LEVEL 1-3 OR FEVER Last administered on 11/05/17 20:21; Admin Dose 650 MG; Start 10/14/17 at 21:30 Multi-Ingredient Ointment (Eucerin Cream) 1 applic BID TOP Last administered on 11/09/17 09:07; Admin Dose 1 APPLIC; Start 10/16/17 at 09:00 Triamcinolone Acetonide (Kenalog 0.1% Oint) 1 applic BID TOP Last administered on 11/09/17 09:07; Admin Dose 1 APPLIC; Start 10/16/17 at 14:00 Famotidine 20 mg 20 mg HS GTB Last administered on 11/08/17 21:32; Admin Dose 20 MG; Start 10/17/17 at 21:00 Fentanyl (Sublimaze) 100 ml @ 2.5 mls/hr TITRATE IV Last administered on 06:36; Admin Dose 7.5 MLS/HR; Start 10/18/17 at 10:00 Diagnostic Test (Pha) (Accu-Chek) 1 ea 02 XX Last administered on 11/08/17 02: 03; Admin Dose 1 EA; Start 10/20/17 at 02:00 Miscellaneous Information 1 ea NOTE XX ; Start 10/19/17 at 18:00 Glucose (Glutose) 15 gm Q15M PRN PO DECREASED GLUCOSE; Start 10/19/17 at 18:00 Glucose (Glutose) 22.5 gm Q15M PRN PO DECREASED GLUCOSE; Start 10/19/17 at 18: 00 Dextrose (D50w Syringe) 25 ml Q15M PRN IV DECREASED GLUCOSE; Start 10/19/17 at 18:00 Dextrose (D50w Syringe) 50 ml Q15M PRN IV DECREASED GLUCOSE; Start 10/19/17 at 18:00 Glucagon (Glucagen) 1 mg Q15M PRN IM DECREASED GLUCOSE; Start 10/19/17 at 18: 00 Glucose 15 gm 15 gm Q15M PRN BUCCAL DECREASED GLUCOSE; Start 10/19/17 at 18:00 Midazolam HCl (Versed) 50 ml @ 1 mls/hr TITRATE IV Last administered on 02:29; Admin Dose 5 MLS/HR; Start 10/21/17 at 09:30 IV Flush (NS 10 ml) 10 ml PRN PRN IV IV PROTOCOL; Start 10/22/17 at 19:00 Insulin Aspart (Novolog Insulin Pen) NOVOLOG *MILD* ALGORI... Q8 SC ; Start at 22:00 Docusate Sodium (Colace Liquid Cup) 100 mg BID GTB Last administered on 09:05; Admin Dose 100 MG; Start 10/24/17 at 21:00 Enoxaparin Sodium (Lovenox) 40 mg DAILY SC Last administered on 11/09/17 09:06 ; Admin Dose 40 MG; Start 11/04/17 at 09:00 Lansoprazole (Prevacid) 30 mg BID@,18 GTB Last administered on 11/09/17 06: 37; Admin Dose 30 MG; Start 11/04/17 at 18:00 Lorazepam (Ativan) 2 mg Q3H PRN IV AGITATION/ANXIETY Last administered on 01:10; Admin Dose 2 MG; Start 11/05/17 at 22:00 Morphine Sulfate (morphine) 2 mg Q2H PRN IV PAIN Last administered on 11:00; Admin Dose 2 MG; Start 11/07/17 at 10:00 Quetiapine Fumarate (Seroquel) 100 mg DAILY GTB Last administered on 11/09/17 09:05; Admin Dose 100 MG; Start 11/08/17 at 11:30 DOLLY ESCOBEDO Nov 09, 2017 09:46
[2017-11-09] MEDS: morphine 2 MG INJ IV PRN ×3 (10:32→17:19)
--- NOTE | 2017-11-09 15:00 | CONS ---
Date/Time of Note Date/Time of Note DATE: 11/09/17 TIME: 14:53 Consult Date/Type/Reason Admit Date/Time Oct 14, 2017 at 20:55 Initial Consult Date 10/30/17 Type of Consultation: Pulmonary/CCM Subjective No events on MV. Objective Vital Signs Date Time Temp Pulse Resp B/P Pulse Ox O2 Delivery O2 Flow Rate FiO2 11/09/17 14:00 81 20 127/83 100 Mechanical Ventilator Trach Collar 11/09/17 12:00 98.4 11/09/17 08:00 30 Intake and Output 11/08/17 11/08/17 11/09/17 15:00 23:00 07:00 Intake Total 462.5 ml 520.0 ml 660.0 ml Output Total 600 ml 440 ml 265 ml Balance -137.5 ml 80.0 ml 395.0 ml Exam HEENT: Neck supple; no JVD; no LAD; + trach CVS: RRR, S1 and S2 CHEST: Clear ABD: Soft, NT, + BS EXT: No c/c; + edema Results/Medications Result Diagram: 11/09/17 0540 11/09/17 0540 Results 24 hrs Laboratory Tests Test 11/08/17 21:31 11/09/17 05:40 11/09/17 06:38 11/09/17 14:16 Bedside Glucose 112 109 102 White Blood Count 11.0 H Red Blood Count 4.63 L Hemoglobin 11.5 L Hematocrit 38.1 L Mean Corpuscular Volume 82.3 Mean Corpuscular Hemoglobin 24.8 L Mean Corpuscular Hemoglobin Concent 30.2 L Red Cell Distribution Width 17.9 H Platelet Count 407 Mean Platelet Volume 11.4 H Neutrophils % 59.8 Lymphocytes % 23.8 Monocytes % 10.8 Eosinophils % 4.2 Basophils % 0.9 Nucleated Red Blood Cells % 0.0 Neutrophils # 6.6 Lymphocytes # 2.6 Monocytes # 1.2 H Eosinophils # 0.5 Basophils # 0.1 Nucleated Red Blood Cells # 0.0 Sodium Level 146 H Potassium Level 3.2 L Chloride Level 92 L Carbon Dioxide Level 42 *H Anion Gap 15 Blood Urea Nitrogen 20 Creatinine 0.94 Glucose Level 109 Calcium Level 9.5 Medications Current Medications Ondansetron HCl (Zofran Inj) 4 mg Q6H PRN IV NAUSEA AND/OR VOMITING Last administered on 11/02/17 13:46; Admin Dose 4 MG; Start 10/14/17 at 21:30 Nitroglycerin (Nitroglycerin (Sl Tab) 0.4 Mg) 1 tab Q5M PRN SL CHEST PAIN; Start 10/14/17 at 21:30 Acetaminophen (Tylenol Tab) 650 mg Q6H PRN PO PAIN LEVEL 1-3 OR FEVER Last administered on 11/05/17 20:21; Admin Dose 650 MG; Start 10/14/17 at 21:30 Multi-Ingredient Ointment (Eucerin Cream) 1 applic BID TOP Last administered on 11/09/17 09:07; Admin Dose 1 APPLIC; Start 10/16/17 at 09:00 Triamcinolone Acetonide (Kenalog 0.1% Oint) 1 applic BID TOP Last administered on 11/09/17 09:07; Admin Dose 1 APPLIC; Start 10/16/17 at 14:00 Famotidine 20 mg 20 mg HS GTB Last administered on 11/08/17 21:32; Admin Dose 20 MG; Start 10/17/17 at 21:00 Fentanyl (Sublimaze) 100 ml @ 2.5 mls/hr TITRATE IV Last administered on 06:36; Admin Dose 7.5 MLS/HR; Start 10/18/17 at 10:00 Diagnostic Test (Pha) (Accu-Chek) 1 ea 02 XX Last administered on 11/08/17 02: 03; Admin Dose 1 EA; Start 10/20/17 at 02:00 Miscellaneous Information 1 ea NOTE XX ; Start 10/19/17 at 18:00 Glucose (Glutose) 15 gm Q15M PRN PO DECREASED GLUCOSE; Start 10/19/17 at 18:00 Glucose (Glutose) 22.5 gm Q15M PRN PO DECREASED GLUCOSE; Start 10/19/17 at 18: 00 Dextrose (D50w Syringe) 25 ml Q15M PRN IV DECREASED GLUCOSE; Start 10/19/17 at 18:00 Dextrose (D50w Syringe) 50 ml Q15M PRN IV DECREASED GLUCOSE; Start 10/19/17 at 18:00 Glucagon (Glucagen) 1 mg Q15M PRN IM DECREASED GLUCOSE; Start 10/19/17 at 18: 00 Glucose 15 gm 15 gm Q15M PRN BUCCAL DECREASED GLUCOSE; Start 10/19/17 at 18:00 Midazolam HCl (Versed) 50 ml @ 1 mls/hr TITRATE IV Last administered on 02:29; Admin Dose 5 MLS/HR; Start 10/21/17 at 09:30 IV Flush (NS 10 ml) 10 ml PRN PRN IV IV PROTOCOL; Start 10/22/17 at 19:00 Insulin Aspart (Novolog Insulin Pen) NOVOLOG *MILD* ALGORI... Q8 SC ; Start at 22:00 Docusate Sodium (Colace Liquid Cup) 100 mg BID GTB Last administered on 09:05; Admin Dose 100 MG; Start 10/24/17 at 21:00 Enoxaparin Sodium (Lovenox) 40 mg DAILY SC Last administered on 11/09/17 09:06 ; Admin Dose 40 MG; Start 11/04/17 at 09:00 Lansoprazole (Prevacid) 30 mg BID@,18 GTB Last administered on 11/09/17 06: 37; Admin Dose 30 MG; Start 11/04/17 at 18:00 Lorazepam (Ativan) 2 mg Q3H PRN IV AGITATION/ANXIETY Last administered on 14:06; Admin Dose 2 MG; Start 11/05/17 at 22:00 Morphine Sulfate (morphine) 2 mg Q2H PRN IV PAIN Last administered on 14:06; Admin Dose 2 MG; Start 11/07/17 at 10:00 Quetiapine Fumarate (Seroquel) 100 mg DAILY GTB Last administered on 11/09/17 09:05; Admin Dose 100 MG; Start 11/08/17 at 11:30 Assessment/Plan Additional Assessment/Plan IMP: 1. Acute on chronic hypercapnic respiratory failure/Failure to wean--s/p trach 2. HFpEF 3. Likely JANA/OHS 4. Possible thromboembolic disease 5. HyperNa+ PLAN: 1. Place on CPAP 7; PS 12 3. Bronchodilators/trach care 4. Continue diuresis 5. Minimize sedation 6. Am CXR/ABG 35 min cc time JASMYN PATRICK MD Nov 09, 2017 15:00
[2017-11-09] MEDS: FAMOTIDINE 20 MG TAB GTB SCH (21:27)
[2017-11-10] VITALS (28 sets, daily range): BP systolic 96–179; BP diastolic 50–120; PULSE 91–110; RESP 8–27
[2017-11-10] MEDS: morphine 2 MG INJ IV PRN ×6 (01:01→21:07)
[2017-11-10] MEDS: ACCU-CHEK XX SCH (02:00)
[2017-11-10 04:49] LABS: AADO2 Arterial 77.3 mmHg (7.0-24.0); Allen Test ACCEPTAB; Arterial Base Excess 15.2 mmol/L (-3.0-3); Arterial COHb 0.2 % (0.0-3.0); Arterial Fraction of Oxyhgb 91.8 % (93.0-99.0); Arterial HCO3 41.7 mmol/L (22.0-26.0); Arterial MetHb 0.1 % (0.0-1.5); Arterial Total Hemglobin 12.4 g/dl (12.0-18.0); Blood Gas PS 12; MODE VENT - CPAP
[2017-11-10 05:23] LABS: BASOPHIL # 0.1 10^3/ul (0.0-0.1); BASOPHILS % 0.8 % (0.0-2.0); EOSINOPHILS # 0.6 10^3/ul (0.0-0.5); HEMATOCRIT 38.7 % (42.0-52.0); HEMOGLOBIN 11.5 g/dl (14.0-18.0); LYMPHOCYTES # 2.5 10^3/ul (0.8-2.9); LYMPHOCYTES % 22.4 % (15.0-51.0); MEAN CORPUSCULAR HEMOGLOBIN 24.3 pg (29.0-33.0); MEAN CORPUSCULAR HGB CONC 29.7 g/dl (32.0-37.0); MEAN CORPUSCULAR VOLUME 81.8 fl (82.0-101.0); MEAN PLATELET VOLUME 10.6 fl (7.4-10.4); MONOCYTE # 1.4 10^3/ul (0.3-0.9); NEUTROPHIL # 6.7 10^3/ul (1.6-7.5); NEUTROPHILS % 59.2 % (39.0-77.0); PLATELET COUNT 387 10^3/UL (140-415); RED BLOOD COUNT 4.73 10^6/ul (4.70-6.10); RED CELL DISTRIBUTION WIDTH 17.5 % (11.5-14.5); WHITE BLOOD COUNT 11.3 10^3/ul (4.8-10.8)
[2017-11-10] MEDS: INSULIN ASPART [NOVOLOG] 3 ML PEN SC SCH ×3 (05:25→22:00)
[2017-11-10] MEDS: LANSOPRAZOLE 30 MG CAP GTB SCH ×2 (05:50→17:35)
[2017-11-10 06:35] LABS: CALCIUM 9.5 mg/dl (8.4-10.2); CREATININE 0.9 mg/dl (0.61-1.24); POTASSIUM 3.1 mmol/L (3.5-5.1)
[2017-11-10] MEDS: QUETIAPINE 100 MG TAB GTB SCH (08:45)
[2017-11-10] MEDS: DOCUSATE SODIUM 10 MG/ML (10ML CUP) GTB SCH ×2 (08:45→20:05)
[2017-11-10] MEDS: ENOXAPARIN 40 MG/0.4 ML SYG SC SCH (08:46)
[2017-11-10] MEDS: EUCERIN 113 GM CR TOP SCH ×2 (08:47→20:06)
[2017-11-10] MEDS: TRIAMCINOLONE ACET 0.1% 15 GM OINT TOP SCH ×2 (08:47→20:06)
--- NOTE | 2017-11-10 10:22 | PN ---
Date/Time of Note Date/Time of Note DATE: 11/10/17 TIME: Assessment/Plan VTE Prophylaxis VTE Prophylaxis Intervention: LMWH Lines/Catheters IV Catheter Type (from Nrs): PICC Line Central line still needed: Yes Urinary Cath still in place: Yes Reason Cath still needed: urinary retention Assessment/Plan Chief Complaint/Hosp Course S: Patient still in restraints, still occasionally agitated at times. Off fentanyl now, on Seroquel and Ativan as needed. Off of IV Lasix 2 days now secondary to increased alkalosis. O: VS (see below) PE: Lying in bed, morbidly obese, in restraints, agitated at times trach in place Supple some B/L distant lung sounds some distant heart sounds no rashes LE unchanged Assessment/Plan: 47 yo M with super morbid obesity, DM presented to SOB intubated initially for airway protection in setting of CO2 narcosis, now s/p trach/PEG placement. 1. SOB/res failure: Acute on chronic hypercapnic respiratory failure. Pulmonary edema and pneumonia S/P abx tx earlier this admission ruled out for acute [place] during this hospital stay. -continue trach, follow pulmonary recommendations -continue PT -Check chest x-ray in the morning 2. possible DVT/ PE?: Apparently wells score at time of admission 3, indicating moderate probability for PE at that time. Lower extremity ultrasounds results on 10/15/17 were inconclusive. Patient apparently too large to fit in CT scanner, so CTA has not able to be performed during this hospital stay. Pt earlier had been on LMWH treatment dose but GI recommends against this now given the fact that patient has antral ulcer, although nonbleeding ulcer presently. Patient also previously this admission had some ET tube bleeding while on tx dose anticoagulation when he was intubated at that time, although none presently. Latest lower extremity bilateral ultrasound from November 04 negative for DVT. -again we are holding treatment dose anticoagulation given the fact of antral ulcer present and because of negative LE U/S study results at this point for any DVT or PE present. -Will need larger machine (likely as an outpatient) to definitively determine if there is pulmonary embolism present. - for now just continue Lovenox 40 mg Sub Q daily - monitor for any bleeding - VQ scan ordered as well, but (again), patient too large at this time to have this performed in radiology, per their input * Note: (If it is determined, however, that patient would need anticoagulation for DVT or PE treatment, would recommend against Coumadin as outpatient given patient's history of noncompliance. Instead, per discussion with pharmacy and pulmonary teams 2 weeks ago, if patient able to be extubated and take oral medicines, would recommend transition to either Eliquis or Xarelto at that time instead bc even though apparently not recommended to use NOAC if BMI >40, recent studies do indicate checking drug specific peak and trough levels on occasion for these medicines if having to use DOAC in patients with BMI greater than 40. Given this patient's history of noncompliance, DOAC would be more beneficial to this patient versus Coumadin as an outpatient). * 3. LE wounds: Continue wound care per wound care team, including creams for dry skin 4. DM2: cont SSI as needed 5. hypernatremia -slightly elevated 147 today -Monitor, again run 6-7 hours of of D5W IV fluids today, recheck BMP in the morning 6. Antral ulcer: Nonbleeding - continue Pepcid twice daily, follow GI recommendations placement to LTAC vs SNF when more medically stable f/u with CM on this. critical care time today: 45 minutes Problems: Exam/Review of Systems Vital Signs Vitals Vital Signs Date Time Temp Pulse Resp B/P Pulse Ox O2 Delivery O2 Flow Rate FiO2 11/10/17 05:20 30 11/10/17 05:18 91 25 99 11/09/17 21:00 128/76 11/09/17 20:00 98.6 CPAP Mechanical Ventilator Trach Collar Intake and Output 11/09/17 11/09/17 11/10/17 15:00 23:00 07:00 Intake Total 452.5 ml 605.0 ml 550 ml Output Total 570 ml 470 ml 310 ml Balance -117.5 ml 135.0 ml 240 ml Results Result Diagram: 11/10/17 0500 11/10/17 0500 Results 24 hrs Laboratory Tests Test 11/09/17 14:16 11/09/17 21:26 11/10/17 04:57 11/10/17 05:00 Bedside Glucose 102 101 109 White Blood Count 11.3 H Red Blood Count 4.73 Hemoglobin 11.5 L Hematocrit 38.7 L Mean Corpuscular Volume 81.8 L Mean Corpuscular Hemoglobin 24.3 L Mean Corpuscular Hemoglobin Concent 29.7 L Red Cell Distribution Width 17.5 H Platelet Count 387 Mean Platelet Volume 10.6 H Neutrophils % 59.2 Lymphocytes % 22.4 Monocytes % 12.0 H Eosinophils % 5.0 Basophils % 0.8 Nucleated Red Blood Cells % 0.0 Neutrophils # 6.7 Lymphocytes # 2.5 Monocytes # 1.4 H Eosinophils # 0.6 H Basophils # 0.1 Nucleated Red Blood Cells # 0.0 Blood Gas Specimen Source Blood arterial Arterial Blood Date Drawn 11/10/2017 4:17:46 AM Arterial Blood pH (Temp corrected) 7.461 H Arterial Blood pCO2 (Temp correct) 59.8 H Arterial Blood pO2 (Temp corrected) 66.3 L Arterial Blood HCO3 41.7 *H Arterial Blood Base Excess 15.2 H Arterial Blood Oxygen Saturation 92.1 L Danyel Test ACCEPTAB Arterial Blood Gas Puncture Site Right Radial Arterial Blood Carboxyhemoglobin 0.2 Arterial Blood Methemoglobin 0.1 Blood Gas A-a O2 Differential 77.3 H Oxyhemoglobin Percent 91.8 L Total Hemoglobin 12.4 Blood Gas Temperature 37.0 Blood Gas Actual Respiration Rate 16 Blood Gas Modality VENT - CPAP FiO2 30.0 Blood Gas Low PEEP Setting 7.0 Blood Gas Pressure Support 12 Blood Gas Critical Value Read Back [place] JULIO RN Blood Gas Notified Whom WF Blood Gas Notified Time 11/10/2017 4:49:10 AM Sodium Level 147 H Potassium Level 3.1 L Chloride Level 93 L Carbon Dioxide Level 40 H Anion Gap 17 H Blood Urea Nitrogen 18 Creatinine 0.90 Glucose Level 121 Calcium Level 9.5 Medications Medications Current Medications Ondansetron HCl (Zofran Inj) 4 mg Q6H PRN IV NAUSEA AND/OR VOMITING Last administered on 11/02/17 13:46; Admin Dose 4 MG; Start 10/14/17 at 21:30 Nitroglycerin (Nitroglycerin (Sl Tab) 0.4 Mg) 1 tab Q5M PRN SL CHEST PAIN; Start 10/14/17 at 21:30 Acetaminophen (Tylenol Tab) 650 mg Q6H PRN PO PAIN LEVEL 1-3 OR FEVER Last administered on 11/05/17 20:21; Admin Dose 650 MG; Start 10/14/17 at 21:30 Multi-Ingredient Ointment (Eucerin Cream) 1 applic BID TOP Last administered on 11/10/17 08:47; Admin Dose 1 APPLIC; Start 10/16/17 at 09:00 Triamcinolone Acetonide (Kenalog 0.1% Oint) 1 applic BID TOP Last administered on 11/10/17 08:47; Admin Dose 1 APPLIC; Start 10/16/17 at 14:00 Famotidine 20 mg 20 mg HS GTB Last administered on 11/09/17 21:27; Admin Dose 20 MG; Start 10/17/17 at 21:00 Fentanyl (Sublimaze) 100 ml @ 2.5 mls/hr TITRATE IV Last administered on 06:36; Admin Dose 7.5 MLS/HR; Start 10/18/17 at 10:00 Diagnostic Test (Pha) (Accu-Chek) 1 ea 02 XX Last administered on 11/08/17 02: 03; Admin Dose 1 EA; Start 10/20/17 at 02:00 Miscellaneous Information 1 ea NOTE XX ; Start 10/19/17 at 18:00 Glucose (Glutose) 15 gm Q15M PRN PO DECREASED GLUCOSE; Start 10/19/17 at 18:00 Glucose (Glutose) 22.5 gm Q15M PRN PO DECREASED GLUCOSE; Start 10/19/17 at 18: 00 Dextrose (D50w Syringe) 25 ml Q15M PRN IV DECREASED GLUCOSE; Start 10/19/17 at 18:00 Dextrose (D50w Syringe) 50 ml Q15M PRN IV DECREASED GLUCOSE; Start 10/19/17 at 18:00 Glucagon (Glucagen) 1 mg Q15M PRN IM DECREASED GLUCOSE; Start 10/19/17 at 18: 00 Glucose 15 gm 15 gm Q15M PRN BUCCAL DECREASED GLUCOSE; Start 10/19/17 at 18:00 Midazolam HCl (Versed) 50 ml @ 1 mls/hr TITRATE IV Last administered on 02:29; Admin Dose 5 MLS/HR; Start 10/21/17 at 09:30 IV Flush (NS 10 ml) 10 ml PRN PRN IV IV PROTOCOL; Start 10/22/17 at 19:00 Insulin Aspart (Novolog Insulin Pen) NOVOLOG *MILD* ALGORI... Q8 SC ; Start at 22:00 Docusate Sodium (Colace Liquid Cup) 100 mg BID GTB Last administered on 08:45; Admin Dose 100 MG; Start 10/24/17 at 21:00 Enoxaparin Sodium (Lovenox) 40 mg DAILY SC Last administered on 11/10/17 08: 46; Admin Dose 40 MG; Start 11/04/17 at 09:00 Lansoprazole (Prevacid) 30 mg BID@06,18 GTB Last administered on 11/10/17 05: 50; Admin Dose 30 MG; Start 11/04/17 at 18:00 Lorazepam (Ativan) 2 mg Q3H PRN IV AGITATION/ANXIETY Last administered on 23:52; Admin Dose 2 MG; Start 11/05/17 at 22:00 Morphine Sulfate (morphine) 2 mg Q2H PRN IV PAIN Last administered on 08:46; Admin Dose 2 MG; Start 11/07/17 at 10:00 Quetiapine Fumarate 100 mg 100 mg DAILY GTB Last administered on 11/10/17 08: 45; Admin Dose 100 MG; Start 11/08/17 at 11:30 Dextrose (D5W) 1,000 ml @ 70 mls/hr [id number] IV ; Start 11/10/17 at 10:30; Stop 11/10/17 at 17:30; Status DOLLY ARMENTA Nov 10, 2017 10:22
[2017-11-10] MEDS ORDERED: DEXTROSE 5% 1,000 ML IV SCH (10:30)
--- NOTE | 2017-11-10 12:29 | PN ---
Date/Time of Note Date/Time of Note DATE: 11/10/17 TIME: 12:28 Assessment/Plan Lines/Catheters IV Catheter Type (from Nrsg): PICC Line Fierro in Place (from Nrsg): Yes Assessment/Plan Chief Complaint/Hosp Course IMPRESSION: Respiratory failure. SP Tracheostomy will continue vent support Pul toilet Problems: Subjective 24 Hr Interval Summary Constitutional: improved Pain Control: mild Exam/Review of Systems Vital Signs Vitals Vital Signs Date Time Temp Pulse Resp B/P Pulse Ox O2 Delivery O2 Flow Rate FiO2 11/10/17 10:00 102 11 150/113 94 Mechanical Ventilator 11/10/17 08:00 99.9 11/10/17 08:00 30 Intake and Output 11/09/17 11/09/17 11/10/17 15:00 23:00 07:00 Intake Total 452.5 ml 605.0 ml 550 ml Output Total 570 ml 470 ml 310 ml Balance -117.5 ml 135.0 ml 240 ml Exam Neck: non-tender, supple Respiratory: clear to auscultation, normal air movement Cardiovascular: nl pulses, regular rate and rhythm Gastrointestinal: nl liver, spleen, non-tender, soft Results Result Diagram: 11/10/17 0500 11/10/17 0500 DRISS JIMENEZ MD Nov 10, 2017 12:29
[2017-11-10] MEDS: LORAZEPAM 2 MG INJ IV PRN ×2 (13:06→20:06)
--- NOTE | 2017-11-10 14:54 | CONS ---
Date/Time of Note Date/Time of Note DATE: 11/10/17 TIME: 14:51 Consult Date/Type/Reason Admit Date/Time Oct 14, 2017 at 20:55 Initial Consult Date 10/30/17 Type of Consultation: Pulmonary/CCM Subjective Tolerated CPAP for ~ 20 hours. Apparently was apneic earlier this am and was switched back to AC Objective Vital Signs Date Time Temp Pulse Resp B/P Pulse Ox O2 Delivery O2 Flow Rate FiO2 11/10/17 12:00 96 11/10/17 10:00 11 150/113 94 Mechanical Ventilator 11/10/17 08:00 99.9 11/10/17 08:00 30 Intake and Output 11/09/17 11/09/17 11/10/17 15:00 23:00 07:00 Intake Total 452.5 ml 605.0 ml 550 ml Output Total 570 ml 470 ml 310 ml Balance -117.5 ml 135.0 ml 240 ml Exam HEENT: Neck supple; no JVD; no LAD; + trach CVS: RRR, S1 and S2 CHEST: Clear ABD: Soft, NT, + BS EXT: No c/c; + edema Results/Medications Result Diagram: 11/10/17 0500 11/10/17 0500 Results 24 hrs Laboratory Tests Test 11/09/17 21:26 11/10/17 04:57 11/10/17 05:00 11/10/17 14:36 Bedside Glucose 101 109 110 White Blood Count 11.3 H Red Blood Count 4.73 Hemoglobin 11.5 L Hematocrit 38.7 L Mean Corpuscular Volume 81.8 L Mean Corpuscular Hemoglobin 24.3 L Mean Corpuscular Hemoglobin Concent 29.7 L Red Cell Distribution Width 17.5 H Platelet Count 387 Mean Platelet Volume 10.6 H Neutrophils % 59.2 Lymphocytes % 22.4 Monocytes % 12.0 H Eosinophils % 5.0 Basophils % 0.8 Nucleated Red Blood Cells % 0.0 Neutrophils # 6.7 Lymphocytes # 2.5 Monocytes # 1.4 H Eosinophils # 0.6 H Basophils # 0.1 Nucleated Red Blood Cells # 0.0 Blood Gas Specimen Source Blood arterial Arterial Blood Date Drawn 11/10/2017 4:17:46 AM Arterial Blood pH (Temp corrected) 7.461 H Arterial Blood pCO2 (Temp correct) 59.8 H Arterial Blood pO2 (Temp corrected) 66.3 L Arterial Blood HCO3 41.7 *H Arterial Blood Base Excess 15.2 H Arterial Blood Oxygen Saturation 92.1 L Danyel Test ACCEPTAB Arterial Blood Gas Puncture Site Right Radial Arterial Blood Carboxyhemoglobin 0.2 Arterial Blood Methemoglobin 0.1 Blood Gas A-a O2 Differential 77.3 H Oxyhemoglobin Percent 91.8 L Total Hemoglobin 12.4 Blood Gas Temperature 37.0 Blood Gas Actual Respiration Rate 16 Blood Gas Modality VENT - CPAP FiO2 30.0 Blood Gas Low PEEP Setting 7.0 Blood Gas Pressure Support 12 Blood Gas Critical Value Read Back [place] JULIO RN Blood Gas Notified Whom WF Blood Gas Notified Time 11/10/2017 4:49:10 AM Sodium Level 147 H Potassium Level 3.1 L Chloride Level 93 L Carbon Dioxide Level 40 H Anion Gap 17 H Blood Urea Nitrogen 18 Creatinine 0.90 Glucose Level 121 Calcium Level 9.5 Medications Current Medications Ondansetron HCl (Zofran Inj) 4 mg Q6H PRN IV NAUSEA AND/OR VOMITING Last administered on 11/02/17 13:46; Admin Dose 4 MG; Start 10/14/17 at 21:30 Nitroglycerin (Nitroglycerin (Sl Tab) 0.4 Mg) 1 tab Q5M PRN SL CHEST PAIN; Start 10/14/17 at 21:30 Acetaminophen (Tylenol Tab) 650 mg Q6H PRN PO PAIN LEVEL 1-3 OR FEVER Last administered on 11/05/17 20:21; Admin Dose 650 MG; Start 10/14/17 at 21:30 Multi-Ingredient Ointment (Eucerin Cream) 1 applic BID TOP Last administered on 11/10/17 08:47; Admin Dose 1 APPLIC; Start 10/16/17 at 09:00 Triamcinolone Acetonide (Kenalog 0.1% Oint) 1 applic BID TOP Last administered on 11/10/17 08:47; Admin Dose 1 APPLIC; Start 10/16/17 at 14:00 Famotidine 20 mg 20 mg HS GTB Last administered on 11/09/17 21:27; Admin Dose 20 MG; Start 10/17/17 at 21:00 Fentanyl (Sublimaze) 100 ml @ 2.5 mls/hr TITRATE IV Last administered on 06:36; Admin Dose 7.5 MLS/HR; Start 10/18/17 at 10:00 Diagnostic Test (Pha) (Accu-Chek) 1 ea 02 XX Last administered on 11/08/17 02: 03; Admin Dose 1 EA; Start 10/20/17 at 02:00 Miscellaneous Information 1 ea NOTE XX ; Start 10/19/17 at 18:00 Glucose (Glutose) 15 gm Q15M PRN PO DECREASED GLUCOSE; Start 10/19/17 at 18:00 Glucose (Glutose) 22.5 gm Q15M PRN PO DECREASED GLUCOSE; Start 10/19/17 at 18: 00 Dextrose (D50w Syringe) 25 ml Q15M PRN IV DECREASED GLUCOSE; Start 10/19/17 at 18:00 Dextrose (D50w Syringe) 50 ml Q15M PRN IV DECREASED GLUCOSE; Start 10/19/17 at 18:00 Glucagon (Glucagen) 1 mg Q15M PRN IM DECREASED GLUCOSE; Start 10/19/17 at 18: 00 Glucose 15 gm 15 gm Q15M PRN BUCCAL DECREASED GLUCOSE; Start 10/19/17 at 18:00 Midazolam HCl (Versed) 50 ml @ 1 mls/hr TITRATE IV Last administered on 02:29; Admin Dose 5 MLS/HR; Start 10/21/17 at 09:30 IV Flush (NS 10 ml) 10 ml PRN PRN IV IV PROTOCOL; Start 10/22/17 at 19:00 Insulin Aspart (Novolog Insulin Pen) NOVOLOG *MILD* ALGORI... Q8 SC ; Start at 22:00 Docusate Sodium (Colace Liquid Cup) 100 mg BID GTB Last administered on 08:45; Admin Dose 100 MG; Start 10/24/17 at 21:00 Enoxaparin Sodium (Lovenox) 40 mg DAILY SC Last administered on 11/10/17 08: 46; Admin Dose 40 MG; Start 11/04/17 at 09:00 Lansoprazole (Prevacid) 30 mg BID@06,18 GTB Last administered on 11/10/17 05: 50; Admin Dose 30 MG; Start 11/04/17 at 18:00 Lorazepam (Ativan) 2 mg Q3H PRN IV AGITATION/ANXIETY Last administered on 11/10 13:06; Admin Dose 2 MG; Start 11/05/17 at 22:00 Morphine Sulfate (morphine) 2 mg Q2H PRN IV PAIN Last administered on 14:33; Admin Dose 2 MG; Start 11/07/17 at 10:00 Quetiapine Fumarate 100 mg 100 mg DAILY GTB Last administered on 11/10/17 08: 45; Admin Dose 100 MG; Start 11/08/17 at 11:30 Dextrose (D5W) 1,000 ml @ 70 mls/hr [id number] IV Last administered on 11:01; Admin Dose 70 MLS/HR; Start 11/10/17 at 10:30; Stop 11/10/17 at 17 :30 Assessment/Plan Additional Assessment/Plan IMP: 1. Acute on chronic hypercapnic respiratory failure/Failure to wean--s/p trach 2. HFpEF 3. Likely JANA/OHS 4. Possible thromboembolic disease 5. HyperNa+ PLAN: 1. Continue CPAP 7; PS 12 3. Bronchodilators/trach care 4. Continue diuresis; though avoid excessive alkalemia may use diamox 5. Minimize sedation 6. Am CXR/ABG 35 min cc time JASMYN PATRICK MD Nov 10, 2017 14:54
[2017-11-10] MEDS: FAMOTIDINE 20 MG TAB GTB SCH (20:05)
[2017-11-11] VITALS (35 sets, daily range): BP systolic 121–162; BP diastolic 58–120; PULSE 92–111; RESP 11–33
[2017-11-11] MEDS: LORAZEPAM 2 MG INJ IV PRN ×3 (00:02→11:35)
[2017-11-11] MEDS: morphine 2 MG INJ IV PRN ×3 (01:42→11:51)
[2017-11-11] MEDS: ACCU-CHEK XX SCH (01:43)
[2017-11-11] MEDS: LANSOPRAZOLE 30 MG CAP GTB SCH ×2 (05:00→19:10)
[2017-11-11] MEDS: INSULIN ASPART [NOVOLOG] 3 ML PEN SC SCH (05:05)
[2017-11-11 05:15] LABS: BASOPHIL # 0.1 10^3/ul (0.0-0.1); EOSINOPHILS # 0.6 10^3/ul (0.0-0.5); EOSINOPHILS % 6.2 % (0.0-7.0); HEMOGLOBIN 11.5 g/dl (14.0-18.0); LYMPHOCYTES # 2.4 10^3/ul (0.8-2.9); MEAN CORPUSCULAR HEMOGLOBIN 24.7 pg (29.0-33.0); MEAN CORPUSCULAR HGB CONC 30.3 g/dl (32.0-37.0); MEAN CORPUSCULAR VOLUME 81.7 fl (82.0-101.0); MEAN PLATELET VOLUME 12.1 fl (7.4-10.4); MONOCYTE # 1.1 10^3/ul (0.3-0.9); MONOCYTES % 11.6 % (0.0-11.0); NEUTROPHIL # 5.3 10^3/ul (1.6-7.5); NEUTROPHILS % 55.7 % (39.0-77.0); PLATELET COUNT 356 10^3/UL (140-415); RED BLOOD COUNT 4.65 10^6/ul (4.70-6.10); RED CELL DISTRIBUTION WIDTH 17.6 % (11.5-14.5); WHITE BLOOD COUNT 9.6 10^3/ul (4.8-10.8)
[2017-11-11 05:29] LABS: AADO2 Arterial 71.1 mmHg (7.0-24.0); Allen Test ACCEPTAB; Arterial Base Excess 8.8 mmol/L (-3.0-3); Arterial COHb 0.8 % (0.0-3.0); Arterial Fraction of Oxyhgb 94.2 % (93.0-99.0); Arterial HCO3 35.3 mmol/L (22.0-26.0); Arterial MetHb 0.1 % (0.0-1.5); Arterial Total Hemglobin 15.6 g/dl (12.0-18.0); Blood Gas PS 12; MODE VENT - CPAP
[2017-11-11 05:36] LABS: CALCIUM 9.7 mg/dl (8.4-10.2); CREATININE 0.8 mg/dl (0.61-1.24); MAGNESIUM 1.9 mg/dl (1.7-2.5); PHOSPHORUS 5.4 mg/dl (2.5-4.9); POTASSIUM 3.7 mmol/L (3.5-5.1)
--- NOTE | 2017-11-11 08:20 | RADRPT ---
PROCEDURE: XR Chest. CLINICAL INDICATION: Pneumonia TECHNIQUE: A single AP view of the chest was obtained. COMPARISON: CHEST 11/09/2017; CHEST 11/07/2017; CHEST 11/03/2017; CHEST 10/30/2017 FINDINGS: Tracheostomy tube is in place. Lung volumes are low. There are are diffuse mild prominent interstitial markings. No focal airspace opacification, pleural effusion or pneumothorax is seen. The cardiomediastinal silhouette is within normal limits for size. The osseous structures are unremarkable. IMPRESSION: 1. Diffuse mild prominent interstitial markings may reflect edema or pneumonitis. No significant in terval change. 2. Tracheostomy tube in place. RPTAT: HH .Lou Felder MD, MD Date Time Electronically viewed and signed by .Lou Felder MD, on 11/11/2017 08:19 .G/
--- NOTE | 2017-11-11 09:12 | CONS ---
Date/Time of Note Date/Time of Note DATE: 11/11/17 TIME: 09:02 Assessment/Plan Assessment/Plan Chief Complaint/Hosp Course Palliative care consultation patient by the name of Joseph Mathews who is a 47- year-old gentleman was admitted to intensive care unit [facility] increasing respiratory distress required intubation, septic hemodynamically compromised with a history of sleep apnea on CPAP at home is noncompliant. Unforeseen patient is morbidly obese with a BMI greater than 80 I am asked to speak to family members about ongoing level of care and overall prognosis. He had a prior brief conversation with patient's significant other she is a voice and spokesperson for patient only significant background history patient is morbidly obese does not take compliant with his medical regimens which in all likelihood precipitated this admission. She has a clear understanding how seriously ill he is grossly desires that he would recover from this episode and trying to take better care of himself acceptable quality of life would be that patient might require prolonged ventilator support and continue to improve. Her fears concerns strengths desires spirituality was discussed briefly medications preferences 1 1 prognosis poor if he survives his hospitalization related performance scale 10% or patient is in the intensive care unit and continues to be moribund.. I will have ongoing discussions with the significant other during his hospitalization and outpatient remains critically ill in the ICU all probability require tracheostomy. Palliative care Problems: Additional Assessment/Plan Viewed patient's chart once again these are present he still remains critically ill he is trach PEG. CODE STATUS still full, mortality rate is still extremely high. Will schedule a family conference and address CODE STATUS once again by the fact he has a young gentleman is off pressors at this time on CPAP. Consultation Date/Type/Reason Admit Date/Time Oct 14, 2017 at 20:55 Initial Consult Date 10/30/17 Type of Consultation: Pulmonary/CCM Exam/Review of Systems Vital Signs Vitals Vital Signs Date Time Temp Pulse Resp B/P Pulse Ox O2 Delivery O2 Flow Rate FiO2 11/11/17 07:00 106 27 130/83 93 CPAP Mechanical Ventilator 11/11/17 05:10 30 11/11/17 04:00 98.4 Intake and Output 11/10/17 11/10/17 11/11/17 14:59 22:59 06:59 Intake Total 760 ml 830 ml 1000 ml Output Total 425 ml 420 ml 395 ml Balance 335 ml 410 ml 605 ml Results Result Diagram: 11/11/17 0300 11/11/17 0300 Results 24 hrs Laboratory Tests Test 11/10/17 14:36 11/10/17 20:15 11/10/17 22:09 11/11/17 03:00 Bedside Glucose 110 112 104 White Blood Count 9.6 Red Blood Count 4.65 L Hemoglobin 11.5 L Hematocrit 38.0 L Mean Corpuscular Volume 81.7 L Mean Corpuscular Hemoglobin 24.7 L Mean Corpuscular Hemoglobin Concent 30.3 L Red Cell Distribution Width 17.6 H Platelet Count 356 Mean Platelet Volume 12.1 H Neutrophils % 55.7 Lymphocytes % 25.0 Monocytes % 11.6 H Eosinophils % 6.2 Basophils % 1.0 Nucleated Red Blood Cells % 0.0 Neutrophils # 5.3 Lymphocytes # 2.4 Monocytes # 1.1 H Eosinophils # 0.6 H Basophils # 0.1 Nucleated Red Blood Cells # 0.0 Sodium Level 143 Potassium Level 3.7 Chloride Level 91 L Carbon Dioxide Level 42 *H Anion Gap 14 Blood Urea Nitrogen 15 Creatinine 0.80 Glucose Level 104 Lactic Acid Level 1.5 Calcium Level 9.7 Phosphorus Level 5.4 H Magnesium Level 1.9 Test 11/11/17 05:00 11/11/17 05:04 Blood Gas Specimen Source Blood arterial Arterial Blood Date Drawn 11/11/2017 4:39:19 AM Arterial Blood pH (Temp corrected) 7.427 Arterial Blood pCO2 (Temp correct) 54.8 H Arterial Blood pO2 (Temp corrected) 78.4 L Arterial Blood HCO3 35.3 H Arterial Blood Base Excess 8.8 H Arterial Blood Oxygen Saturation 95.1 Danyel Test ACCEPTAB Arterial Blood Gas Puncture Site Right Radial Arterial Blood Carboxyhemoglobin 0.8 Arterial Blood Methemoglobin 0.1 Blood Gas A-a O2 Differential 71.1 H Oxyhemoglobin Percent 94.2 Total Hemoglobin 15.6 Blood Gas Temperature 37.0 Blood Gas Actual Respiration Rate 20 Blood Gas Modality VENT - CPAP FiO2 30.0 Blood Gas Low PEEP Setting 7.0 Blood Gas Pressure Support 12 Blood Gas Notified Whom RTR Blood Gas Notified Time 11/11/2017 5:28:54 AM Bedside Glucose 109 Medications Medications Current Medications Ondansetron HCl (Zofran Inj) 4 mg Q6H PRN IV NAUSEA AND/OR VOMITING Last administered on 11/02/17 13:46; Admin Dose 4 MG; Start 10/14/17 at 21:30 Nitroglycerin (Nitroglycerin (Sl Tab) 0.4 Mg) 1 tab Q5M PRN SL CHEST PAIN; Start 10/14/17 at 21:30 Acetaminophen (Tylenol Tab) 650 mg Q6H PRN PO PAIN LEVEL 1-3 OR FEVER Last administered on 11/05/17 20:21; Admin Dose 650 MG; Start 10/14/17 at 21:30 Multi-Ingredient Ointment (Eucerin Cream) 1 applic BID TOP Last administered on 11/10/17 20:06; Admin Dose 1 APPLIC; Start 10/16/17 at 09:00 Triamcinolone Acetonide (Kenalog 0.1% Oint) 1 applic BID TOP Last administered on 11/10/17 20:06; Admin Dose 1 APPLIC; Start 10/16/17 at 14:00 Famotidine 20 mg 20 mg HS GTB Last administered on 11/10/17 20:05; Admin Dose 20 MG; Start 10/17/17 at 21:00 Fentanyl (Sublimaze) 100 ml @ 2.5 mls/hr TITRATE IV Last administered on 06:36; Admin Dose 7.5 MLS/HR; Start 10/18/17 at 10:00 Diagnostic Test (Pha) (Accu-Chek) 1 ea 02 XX Last administered on 11/08/17 02: 03; Admin Dose 1 EA; Start 10/20/17 at 02:00 Miscellaneous Information 1 ea NOTE XX ; Start 10/19/17 at 18:00 Glucose (Glutose) 15 gm Q15M PRN PO DECREASED GLUCOSE; Start 10/19/17 at 18:00 Glucose (Glutose) 22.5 gm Q15M PRN PO DECREASED GLUCOSE; Start 10/19/17 at 18: 00 Dextrose (D50w Syringe) 25 ml Q15M PRN IV DECREASED GLUCOSE; Start 10/19/17 at 18:00 Dextrose (D50w Syringe) 50 ml Q15M PRN IV DECREASED GLUCOSE; Start 10/19/17 at 18:00 Glucagon (Glucagen) 1 mg Q15M PRN IM DECREASED GLUCOSE; Start 10/19/17 at 18: 00 Glucose 15 gm 15 gm Q15M PRN BUCCAL DECREASED GLUCOSE; Start 10/19/17 at 18:00 Midazolam HCl (Versed) 50 ml @ 1 mls/hr TITRATE IV Last administered on 02:29; Admin Dose 5 MLS/HR; Start 10/21/17 at 09:30 IV Flush (NS 10 ml) 10 ml PRN PRN IV IV PROTOCOL; Start 10/22/17 at 19:00 Insulin Aspart (Novolog Insulin Pen) NOVOLOG *MILD* ALGORI... Q8 SC ; Start at 22:00 Docusate Sodium (Colace Liquid Cup) 100 mg BID GTB Last administered on 20:05; Admin Dose 100 MG; Start 10/24/17 at 21:00 Enoxaparin Sodium (Lovenox) 40 mg DAILY SC Last administered on 11/10/17 08: 46; Admin Dose 40 MG; Start 11/04/17 at 09:00 Lansoprazole (Prevacid) 30 mg BID@06,18 GTB Last administered on 11/11/17 05: 00; Admin Dose 30 MG; Start 11/04/17 at 18:00 Lorazepam (Ativan) 2 mg Q3H PRN IV AGITATION/ANXIETY Last administered on 11/11 04:59; Admin Dose 2 MG; Start 11/05/17 at 22:00 Morphine Sulfate (morphine) 2 mg Q2H PRN IV PAIN Last administered on 05:53; Admin Dose 2 MG; Start 11/07/17 at 10:00 Quetiapine Fumarate (Seroquel) 100 mg DAILY GTB Last administered on 08:45; Admin Dose 100 MG; Start 11/08/17 at 11:30 JACK FONTENOT Nov 11, 2017 09:12
[2017-11-11] MEDS: ENOXAPARIN 40 MG/0.4 ML SYG SC SCH (09:36)
[2017-11-11] MEDS: QUETIAPINE 100 MG TAB GTB SCH (09:36)
[2017-11-11] MEDS: DOCUSATE SODIUM 10 MG/ML (10ML CUP) GTB SCH ×2 (09:36→20:23)
[2017-11-11] MEDS: EUCERIN 113 GM CR TOP SCH ×2 (09:37→21:54)
[2017-11-11] MEDS: TRIAMCINOLONE ACET 0.1% 15 GM OINT TOP SCH ×2 (09:37→21:53)
--- NOTE | 2017-11-11 10:21 | CONS ---
Date/Time of Note Date/Time of Note DATE: 11/11/17 TIME: 10:20 Consult Date/Type/Reason Admit Date/Time Oct 14, 2017 at 20:55 Type of Consultation: Pulmonary/CCM Subjective patient remains stable on mechanical ventilation.Currently on CPAP trial with no evidence of respiratory distress. Objective Vital Signs Date Time Temp Pulse Resp B/P Pulse Ox O2 Delivery O2 Flow Rate FiO2 11/11/17 08:00 93 11/11/17 07:00 27 130/83 93 CPAP Mechanical Ventilator 11/11/17 05:10 30 11/11/17 04:00 98.4 Intake and Output 11/10/17 11/10/17 11/11/17 15:00 23:00 07:00 Intake Total 880 ml 770 ml 1000 ml Output Total 475 ml 420 ml 395 ml Balance 405 ml 350 ml 605 ml Exam GENERAL: Morbidly obese gentleman comfortable at rest. Continues CPAP via tracheostomy. VITAL SIGNS: per chart NECK: Supple. No JVD or lymphadenopathy. CARDIAC EXAM: S1, S2. No added sounds or murmurs. CHEST: clear bilaterally, No added sounds, rales or wheezes ABDOMEN: Soft, nontender. No guarding or rebound. EXTREMITIES: No cyanosis, clubbing , NEUROLOGIC: Generalized weakness. No focal deficits. Edema +2 Results/Medications Result Diagram: 11/11/17 0300 11/11/17 0300 Results 24 hrs Laboratory Tests Test 11/10/17 14:36 11/10/17 20:15 11/10/17 22:09 11/11/17 03:00 Bedside Glucose 110 112 104 White Blood Count 9.6 Red Blood Count 4.65 L Hemoglobin 11.5 L Hematocrit 38.0 L Mean Corpuscular Volume 81.7 L Mean Corpuscular Hemoglobin 24.7 L Mean Corpuscular Hemoglobin Concent 30.3 L Red Cell Distribution Width 17.6 H Platelet Count 356 Mean Platelet Volume 12.1 H Neutrophils % 55.7 Lymphocytes % 25.0 Monocytes % 11.6 H Eosinophils % 6.2 Basophils % 1.0 Nucleated Red Blood Cells % 0.0 Neutrophils # 5.3 Lymphocytes # 2.4 Monocytes # 1.1 H Eosinophils # 0.6 H Basophils # 0.1 Nucleated Red Blood Cells # 0.0 Sodium Level 143 Potassium Level 3.7 Chloride Level 91 L Carbon Dioxide Level 42 *H Anion Gap 14 Blood Urea Nitrogen 15 Creatinine 0.80 Glucose Level 104 Lactic Acid Level 1.5 Calcium Level 9.7 Phosphorus Level 5.4 H Magnesium Level 1.9 Test 11/11/17 05:00 11/11/17 05:04 Blood Gas Specimen Source Blood arterial Arterial Blood Date Drawn 11/11/2017 4:39:19 AM Arterial Blood pH (Temp corrected) 7.427 Arterial Blood pCO2 (Temp correct) 54.8 H Arterial Blood pO2 (Temp corrected) 78.4 L Arterial Blood HCO3 35.3 H Arterial Blood Base Excess 8.8 H Arterial Blood Oxygen Saturation 95.1 Danyel Test ACCEPTAB Arterial Blood Gas Puncture Site Right Radial Arterial Blood Carboxyhemoglobin 0.8 Arterial Blood Methemoglobin 0.1 Blood Gas A-a O2 Differential 71.1 H Oxyhemoglobin Percent 94.2 Total Hemoglobin 15.6 Blood Gas Temperature 37.0 Blood Gas Actual Respiration Rate 20 Blood Gas Modality VENT - CPAP FiO2 30.0 Blood Gas Low PEEP Setting 7.0 Blood Gas Pressure Support 12 Blood Gas Notified Whom RTR Blood Gas Notified Time 11/11/2017 5:28:54 AM Bedside Glucose 109 Medications Current Medications Ondansetron HCl (Zofran Inj) 4 mg Q6H PRN IV NAUSEA AND/OR VOMITING Last administered on 11/02/17 13:46; Admin Dose 4 MG; Start 10/14/17 at 21:30 Nitroglycerin (Nitroglycerin (Sl Tab) 0.4 Mg) 1 tab Q5M PRN SL CHEST PAIN; Start 10/14/17 at 21:30 Acetaminophen (Tylenol Tab) 650 mg Q6H PRN PO PAIN LEVEL 1-3 OR FEVER Last administered on 11/05/17 20:21; Admin Dose 650 MG; Start 10/14/17 at 21:30 Multi-Ingredient Ointment (Eucerin Cream) 1 applic BID TOP Last administered on 11/11/17 09:37; Admin Dose 1 APPLIC; Start 10/16/17 at 09:00 Triamcinolone Acetonide (Kenalog 0.1% Oint) 1 applic BID TOP Last administered on 11/11/17 09:37; Admin Dose 1 APPLIC; Start 10/16/17 at 14:00 Famotidine 20 mg 20 mg HS GTB Last administered on 11/10/17 20:05; Admin Dose 20 MG; Start 10/17/17 at 21:00 Fentanyl (Sublimaze) 100 ml @ 2.5 mls/hr TITRATE IV Last administered on 06:36; Admin Dose 7.5 MLS/HR; Start 10/18/17 at 10:00 Diagnostic Test (Pha) (Accu-Chek) 1 ea 02 XX Last administered on 11/08/17 02: 03; Admin Dose 1 EA; Start 10/20/17 at 02:00 Miscellaneous Information 1 ea NOTE XX ; Start 10/19/17 at 18:00 Glucose (Glutose) 15 gm Q15M PRN PO DECREASED GLUCOSE; Start 10/19/17 at 18:00 Glucose (Glutose) 22.5 gm Q15M PRN PO DECREASED GLUCOSE; Start 10/19/17 at 18: 00 Dextrose (D50w Syringe) 25 ml Q15M PRN IV DECREASED GLUCOSE; Start 10/19/17 at 18:00 Dextrose (D50w Syringe) 50 ml Q15M PRN IV DECREASED GLUCOSE; Start 10/19/17 at 18:00 Glucagon (Glucagen) 1 mg Q15M PRN IM DECREASED GLUCOSE; Start 10/19/17 at 18: 00 Glucose 15 gm 15 gm Q15M PRN BUCCAL DECREASED GLUCOSE; Start 10/19/17 at 18:00 Midazolam HCl (Versed) 50 ml @ 1 mls/hr TITRATE IV Last administered on 02:29; Admin Dose 5 MLS/HR; Start 10/21/17 at 09:30 IV Flush (NS 10 ml) 10 ml PRN PRN IV IV PROTOCOL; Start 10/22/17 at 19:00 Insulin Aspart (Novolog Insulin Pen) NOVOLOG *MILD* ALGORI... Q8 SC ; Start at 22:00 Docusate Sodium (Colace Liquid Cup) 100 mg BID GTB Last administered on 09:36; Admin Dose 100 MG; Start 10/24/17 at 21:00 Enoxaparin Sodium (Lovenox) 40 mg DAILY SC Last administered on 11/11/17 09: 36; Admin Dose 40 MG; Start 11/04/17 at 09:00 Lansoprazole (Prevacid) 30 mg BID@,18 GTB Last administered on 11/11/17 05: 00; Admin Dose 30 MG; Start 11/04/17 at 18:00 Lorazepam (Ativan) 2 mg Q3H PRN IV AGITATION/ANXIETY Last administered on 11/11 04:59; Admin Dose 2 MG; Start 11/05/17 at 22:00 Morphine Sulfate (morphine) 2 mg Q2H PRN IV PAIN Last administered on 05:53; Admin Dose 2 MG; Start 11/07/17 at 10:00 Quetiapine Fumarate (Seroquel) 100 mg DAILY GTB Last administered on 09:36; Admin Dose 100 MG; Start 11/08/17 at 11:30 Assessment/Plan Chief Complaint/Hosp Course IMP: 1. Acute on chronic hypercapnic respiratory failure/Failure to wean--s/p trach 2. HFpEF 3. Likely JANA/OHS 4. Possible thromboembolic disease 5. HyperNa+ PLAN: 1. Continue CPAP 7; PS 12 3. Bronchodilators/trach care 4. Continue diuresis; though avoid excessive alkalemia may use diamox 5. Minimize sedation 6. Am CXR/ABG Transfer to telemetry and [facility] facility. Problems: BRIGETTE CODY MD, [facility] Nov 11, 2017 10:21
--- NOTE | 2017-11-11 12:27 | PN ---
Date/Time of Note Date/Time of Note DATE: 11/11/17 TIME: 12:27 Assessment/Plan VTE Prophylaxis VTE Prophylaxis Intervention: SCD's Lines/Catheters IV Catheter Type (from Nrsg): PICC Line Central line still needed: No Urinary Cath still in place: Yes Reason Cath still needed: skin wounds contaminated by urine Assessment/Plan Assessment/Plan 47 yo M with super morbid obesity, DM presented to SOB intubated for airway protection in setting of CO2 narcosis and pulmonary edema, now sp PEG and trach #prolonged combined hypoxic and hypercapnic respiratory failure sp trach and PEG #antral ulcer: incidentally found on EGD for PEG -cont acid suppression #possible PE? therapeutic ATC on hold given gastric ulcer. CM consult for imaging at facility that might be able to accommodate pt's weight CM cs in place for LTAC eval xfer to floor. critical care time:30 minutes Subjective 24 Hr Interval Summary Free Text/Dictation During my off service week, pt weaned to BiPap. Also continuous sedation was stopped Exam/Review of Systems Vital Signs Vitals Vital Signs Date Time Temp Pulse Resp B/P Pulse Ox O2 Delivery O2 Flow Rate FiO2 11/11/17 11:00 93 17 140/83 95 CPAP Mechanical Ventilator 11/11/17 08:00 99.0 11/11/17 05:10 30 Intake and Output 11/10/17 11/10/17 11/11/17 14:59 22:59 06:59 Intake Total 760 ml 830 ml 1000 ml Output Total 425 ml 420 ml 395 ml Balance 335 ml 410 ml 605 ml Exam sleeping, on CPAP to trach no mrg lungs clear abd soft LEs unchanged from prior na wnl Results Result Diagram: 11/11/17 0300 11/11/17 0300 Results 24 hrs Laboratory Tests Test 11/10/17 14:36 11/10/17 20:15 11/10/17 22:09 11/11/17 03:00 Bedside Glucose 110 112 104 White Blood Count 9.6 Red Blood Count 4.65 L Hemoglobin 11.5 L Hematocrit 38.0 L Mean Corpuscular Volume 81.7 L Mean Corpuscular Hemoglobin 24.7 L Mean Corpuscular Hemoglobin Concent 30.3 L Red Cell Distribution Width 17.6 H Platelet Count 356 Mean Platelet Volume 12.1 H Neutrophils % 55.7 Lymphocytes % 25.0 Monocytes % 11.6 H Eosinophils % 6.2 Basophils % 1.0 Nucleated Red Blood Cells % 0.0 Neutrophils # 5.3 Lymphocytes # 2.4 Monocytes # 1.1 H Eosinophils # 0.6 H Basophils # 0.1 Nucleated Red Blood Cells # 0.0 Sodium Level 143 Potassium Level 3.7 Chloride Level 91 L Carbon Dioxide Level 42 *H Anion Gap 14 Blood Urea Nitrogen 15 Creatinine 0.80 Glucose Level 104 Lactic Acid Level 1.5 Calcium Level 9.7 Phosphorus Level 5.4 H Magnesium Level 1.9 Test 11/11/17 05:00 11/11/17 05:04 Blood Gas Specimen Source Blood arterial Arterial Blood Date Drawn 11/11/2017 4:39:19 AM Arterial Blood pH (Temp corrected) 7.427 Arterial Blood pCO2 (Temp correct) 54.8 H Arterial Blood pO2 (Temp corrected) 78.4 L Arterial Blood HCO3 35.3 H Arterial Blood Base Excess 8.8 H Arterial Blood Oxygen Saturation 95.1 Danyel Test ACCEPTAB Arterial Blood Gas Puncture Site Right Radial Arterial Blood Carboxyhemoglobin 0.8 Arterial Blood Methemoglobin 0.1 Blood Gas A-a O2 Differential 71.1 H Oxyhemoglobin Percent 94.2 Total Hemoglobin 15.6 Blood Gas Temperature 37.0 Blood Gas Actual Respiration Rate 20 Blood Gas Modality VENT - CPAP FiO2 30.0 Blood Gas Low PEEP Setting 7.0 Blood Gas Pressure Support 12 Blood Gas Notified Whom RTR Blood Gas Notified Time 11/11/2017 5:28:54 AM Bedside Glucose 109 Medications Medications Current Medications Ondansetron HCl (Zofran Inj) 4 mg Q6H PRN IV NAUSEA AND/OR VOMITING Last administered on 11/02/17 13:46; Admin Dose 4 MG; Start 10/14/17 at 21:30 Nitroglycerin (Nitroglycerin (Sl Tab) 0.4 Mg) 1 tab Q5M PRN SL CHEST PAIN; Start 10/14/17 at 21:30 Acetaminophen (Tylenol Tab) 650 mg Q6H PRN PO PAIN LEVEL 1-3 OR FEVER Last administered on 11/05/17 20:21; Admin Dose 650 MG; Start 10/14/17 at 21:30 Multi-Ingredient Ointment (Eucerin Cream) 1 applic BID TOP Last administered on 11/11/17 09:37; Admin Dose 1 APPLIC; Start 10/16/17 at 09:00 Triamcinolone Acetonide (Kenalog 0.1% Oint) 1 applic BID TOP Last administered on 11/11/17 09:37; Admin Dose 1 APPLIC; Start 10/16/17 at 14:00 Famotidine 20 mg 20 mg HS GTB Last administered on 11/10/17 20:05; Admin Dose 20 MG; Start 10/17/17 at 21:00 Fentanyl (Sublimaze) 100 ml @ 2.5 mls/hr TITRATE IV Last administered on 06:36; Admin Dose 7.5 MLS/HR; Start 10/18/17 at 10:00 Miscellaneous Information 1 ea NOTE XX ; Start 10/19/17 at 18:00 Glucose (Glutose) 15 gm Q15M PRN PO DECREASED GLUCOSE; Start 10/19/17 at 18:00 Glucose (Glutose) 22.5 gm Q15M PRN PO DECREASED GLUCOSE; Start 10/19/17 at 18: 00 Dextrose (D50w Syringe) 25 ml Q15M PRN IV DECREASED GLUCOSE; Start 10/19/17 at 18:00 Dextrose (D50w Syringe) 50 ml Q15M PRN IV DECREASED GLUCOSE; Start 10/19/17 at 18:00 Glucagon (Glucagen) 1 mg Q15M PRN IM DECREASED GLUCOSE; Start 10/19/17 at 18: 00 Glucose 15 gm 15 gm Q15M PRN BUCCAL DECREASED GLUCOSE; Start 10/19/17 at 18:00 Midazolam HCl (Versed) 50 ml @ 1 mls/hr TITRATE IV Last administered on 02:29; Admin Dose 5 MLS/HR; Start 10/21/17 at 09:30 IV Flush (NS 10 ml) 10 ml PRN PRN IV IV PROTOCOL; Start 10/22/17 at 19:00 Docusate Sodium (Colace Liquid Cup) 100 mg BID GTB Last administered on 09:36; Admin Dose 100 MG; Start 10/24/17 at 21:00 Enoxaparin Sodium (Lovenox) 40 mg DAILY SC Last administered on 11/11/17 09: 36; Admin Dose 40 MG; Start 11/04/17 at 09:00 Lansoprazole (Prevacid) 30 mg BID@,18 GTB Last administered on 11/11/17 05: 00; Admin Dose 30 MG; Start 11/04/17 at 18:00 Lorazepam (Ativan) 2 mg Q3H PRN IV AGITATION/ANXIETY Last administered on 11/11 11:35; Admin Dose 2 MG; Start 11/05/17 at 22:00 Morphine Sulfate (morphine) 2 mg Q2H PRN IV PAIN Last administered on 11:51; Admin Dose 2 MG; Start 11/07/17 at 10:00 Quetiapine Fumarate (Seroquel) 100 mg DAILY GTB Last administered on 09:36; Admin Dose 100 MG; Start 11/08/17 at 11:30 LEXII LADD MD Nov 11, 2017 12:27
--- NOTE | 2017-11-11 17:24 | PN ---
Date/Time of Note Date/Time of Note DATE: 11/11/17 TIME: 17:23 Assessment/Plan Lines/Catheters IV Catheter Type (from Nrsg): PICC Line Fierro in Place (from Nrsg): Yes Assessment/Plan Chief Complaint/Hosp Course IMPRESSION: Respiratory failure. SP Tracheostomy will continue vent support Pul toilet Problems: Subjective 24 Hr Interval Summary Constitutional: improved Pain Control: mild Exam/Review of Systems Vital Signs Vitals Vital Signs Date Time Temp Pulse Resp B/P Pulse Ox O2 Delivery O2 Flow Rate FiO2 11/11/17 16:00 96 11/11/17 16:00 99.4 24 136/84 95 CPAP Mechanical Ventilator 11/11/17 15:52 30 Intake and Output 11/10/17 11/10/17 11/11/17 15:00 23:00 07:00 Intake Total 880 ml 770 ml 1000 ml Output Total 475 ml 420 ml 395 ml Balance 405 ml 350 ml 605 ml Exam ENMT: mucosa pink and moist, nl external ears & nose, nl lips & teeth, nl nasal mucosa & septum Neck: non-tender, supple Respiratory: clear to auscultation, normal air movement Cardiovascular: nl pulses, regular rate and rhythm Results Result Diagram: 11/11/17 0300 11/11/17 0300 DRISS JIMENEZ MD Nov 11, 2017 17:24
[2017-11-11] MEDS ORDERED: LORAZEPAM 1 MG TAB PO ONE (19:00)
[2017-11-11] MEDS ORDERED: LORAZEPAM 2 MG INJ IV ONE (19:00)
[2017-11-11] MEDS: FAMOTIDINE 20 MG TAB GTB SCH (20:23)
[2017-11-12] VITALS (29 sets, daily range): BP systolic 120–154; BP diastolic 76–96; PULSE 98–110; RESP 10–27
[2017-11-12] MEDS ORDERED: LEVALBUTEROL (HFA) 15 GM INHALER INH PRN (02:30)
[2017-11-12] MEDS ORDERED: HALOPERIDOL 5 MG INJ IM ONE (03:30)
[2017-11-12] MEDS ORDERED: LORAZEPAM 2 MG INJ IV ONE (03:30)
[2017-11-12] MEDS: LANSOPRAZOLE 30 MG CAP GTB SCH ×2 (05:41→18:38)
[2017-11-12 07:08] LABS: BASOPHIL # 0.1 10^3/ul (0.0-0.1); EOSINOPHILS # 0.5 10^3/ul (0.0-0.5); EOSINOPHILS % 5.3 % (0.0-7.0); HEMATOCRIT 38.2 % (42.0-52.0); HEMOGLOBIN 11.5 g/dl (14.0-18.0); LYMPHOCYTES # 2.7 10^3/ul (0.8-2.9); LYMPHOCYTES % 27.3 % (15.0-51.0); MEAN CORPUSCULAR HEMOGLOBIN 24.6 pg (29.0-33.0); MEAN CORPUSCULAR HGB CONC 30.1 g/dl (32.0-37.0); MEAN CORPUSCULAR VOLUME 81.6 fl (82.0-101.0); MEAN PLATELET VOLUME 11.1 fl (7.4-10.4); MONOCYTE # 1.3 10^3/ul (0.3-0.9); MONOCYTES % 12.8 % (0.0-11.0); NEUTROPHIL # 5.3 10^3/ul (1.6-7.5); NEUTROPHILS % 53.2 % (39.0-77.0); PLATELET COUNT 333 10^3/UL (140-415); RED BLOOD COUNT 4.68 10^6/ul (4.70-6.10); RED CELL DISTRIBUTION WIDTH 17.6 % (11.5-14.5)
[2017-11-12 07:41] LABS: CALCIUM 9.5 mg/dl (8.4-10.2); CREATININE 0.86 mg/dl (0.61-1.24); POTASSIUM 3.2 mmol/L (3.5-5.1)
[2017-11-12] MEDS: DOCUSATE SODIUM 10 MG/ML (10ML CUP) GTB SCH ×2 (09:53→20:14)
[2017-11-12] MEDS: ENOXAPARIN 40 MG/0.4 ML SYG SC SCH (09:56)
[2017-11-12] MEDS: EUCERIN 113 GM CR TOP SCH ×2 (09:57→20:15)
[2017-11-12] MEDS: TRIAMCINOLONE ACET 0.1% 15 GM OINT TOP SCH ×2 (09:58→20:15)
--- NOTE | 2017-11-12 12:20 | PN ---
Date/Time of Note Date/Time of Note DATE: 11/12/17 TIME: 12:15 Assessment/Plan VTE Prophylaxis VTE Prophylaxis Intervention: SCD's Lines/Catheters IV Catheter Type (from Nrsg): PICC Line Central line still needed: No Urinary Cath still in place: Yes Reason Cath still needed: other (indicate) (UEs in retraints) Assessment/Plan Assessment/Plan 47 yo M with super morbid obesity, DM presented to SOB intubated for airway protection in setting of CO2 narcosis and pulmonary edema, now sp PEG and trach #prolonged combined hypoxic and hypercapnic respiratory failure sp trach and PEG ST eval #antral ulcer: incidentally found on EGD for PEG -cont acid suppression. of note pt appeared to be on both h2b and PPI. will stop h2b #possible PE? therapeutic ATC on hold given gastric ulcer. CM consult for imaging at facility that might be able to accommodate pt's weight placed CM cs in place for LTAC eval Subjective 24 Hr Interval Summary Free Text/Dictation wants to sign himself out however has not been able to get out of bed with PT 2/ 2 fatigue Exam/Review of Systems Vital Signs Vitals Vital Signs Date Time Temp Pulse Resp B/P Pulse Ox O2 Delivery O2 Flow Rate FiO2 11/12/17 11:05 102 10 98 30 11/12/17 10:00 99.3 154/96 11/11/17 16:00 CPAP Mechanical Ventilator Intake and Output 11/11/17 11/11/17 11/12/17 15:00 23:00 07:00 Intake Total 600 ml 50 ml 650 ml Output Total 1550 ml Balance 600 ml 50 ml -900 ml Exam frustrated trach site c/d/i no mrg obese LEs unchanged Na a little higher Results Result Diagram: 11/12/17 0629 11/12/17 0629 Results 24 hrs Laboratory Tests Test 11/12/17 06:29 White Blood Count 10.0 Red Blood Count 4.68 L Hemoglobin 11.5 L Hematocrit 38.2 L Mean Corpuscular Volume 81.6 L Mean Corpuscular Hemoglobin 24.6 L Mean Corpuscular Hemoglobin Concent 30.1 L Red Cell Distribution Width 17.6 H Platelet Count 333 Mean Platelet Volume 11.1 H Neutrophils % 53.2 Lymphocytes % 27.3 Monocytes % 12.8 H Eosinophils % 5.3 Basophils % 1.0 Nucleated Red Blood Cells % 0.0 Neutrophils # 5.3 Lymphocytes # 2.7 Monocytes # 1.3 H Eosinophils # 0.5 Basophils # 0.1 Nucleated Red Blood Cells # 0.0 Sodium Level 145 H Potassium Level 3.2 L Chloride Level 94 L Carbon Dioxide Level 40 H Anion Gap 14 Blood Urea Nitrogen 12 Creatinine 0.86 Glucose Level 107 Calcium Level 9.5 Medications Medications Current Medications Ondansetron HCl (Zofran Inj) 4 mg Q6H PRN IV NAUSEA AND/OR VOMITING Last administered on 11/02/17 13:46; Admin Dose 4 MG; Start 10/14/17 at 21:30 Nitroglycerin (Nitroglycerin (Sl Tab) 0.4 Mg) 1 tab Q5M PRN SL CHEST PAIN; Start 10/14/17 at 21:30 Acetaminophen (Tylenol Tab) 650 mg Q6H PRN PO PAIN LEVEL 1-3 OR FEVER Last administered on 11/05/17 20:21; Admin Dose 650 MG; Start 10/14/17 at 21:30 Multi-Ingredient Ointment (Eucerin Cream) 1 applic BID TOP Last administered on 11/12/17 09:57; Admin Dose 1 APPLIC; Start 10/16/17 at 09:00 Triamcinolone Acetonide (Kenalog 0.1% Oint) 1 applic BID TOP Last administered on 11/12/17 09:58; Admin Dose 1 APPLIC; Start 10/16/17 at 14:00 Famotidine (Pepcid) 20 mg HS GTB Last administered on 11/11/17 20:23; Admin Dose 20 MG; Start 10/17/17 at 21:00 Miscellaneous Information 1 ea NOTE XX ; Start 10/19/17 at 18:00 Glucose (Glutose) 15 gm Q15M PRN PO DECREASED GLUCOSE; Start 10/19/17 at 18:00 Glucose (Glutose) 22.5 gm Q15M PRN PO DECREASED GLUCOSE; Start 10/19/17 at 18: 00 Dextrose (D50w Syringe) 25 ml Q15M PRN IV DECREASED GLUCOSE; Start 10/19/17 at 18:00 Dextrose (D50w Syringe) 50 ml Q15M PRN IV DECREASED GLUCOSE; Start 10/19/17 at 18:00 Glucagon (Glucagen) 1 mg Q15M PRN IM DECREASED GLUCOSE; Start 10/19/17 at 18: 00 Glucose (Glutose) 15 gm Q15M PRN BUCCAL DECREASED GLUCOSE; Start 10/19/17 at 18:00 IV Flush (NS 10 ml) 10 ml PRN PRN IV IV PROTOCOL; Start 10/22/17 at 19:00 Docusate Sodium (Colace Liquid Cup) 100 mg BID GTB Last administered on 09:53; Admin Dose 100 MG; Start 10/24/17 at 21:00 Enoxaparin Sodium (Lovenox) 40 mg DAILY SC Last administered on 11/12/17 09: 56; Admin Dose 40 MG; Start 11/04/17 at 09:00 Lansoprazole (Prevacid) 30 mg BID@ GTB Last administered on 11/12/17 05: 41; Admin Dose 30 MG; Start 11/04/17 at 18:00 LEXII LADD MD Nov 12, 2017 12:20
[2017-11-12] MEDS: ACETAMINOPHEN 325 MG TAB PO PRN (15:01)
[2017-11-12] MEDS ORDERED: POTASSIUM CHLORIDE 20 MEQ POWDER FOR ORAL SOLN NGT ONE (16:00)
[2017-11-13] VITALS (26 sets, daily range): BP systolic 125–158; BP diastolic 75–99; PULSE 100–106; RESP 14–26
[2017-11-13] MEDS ORDERED: VITAMIN A & D 5 GM OINT PACKET TOP ONE (04:36)
[2017-11-13] MEDS: LANSOPRAZOLE 30 MG CAP GTB SCH ×2 (05:44→17:28)
[2017-11-13] MEDS: ACETAMINOPHEN 325 MG TAB PO PRN (05:44)
[2017-11-13] MEDS: TRIAMCINOLONE ACET 0.1% 15 GM OINT TOP SCH ×2 (08:38→20:38)
[2017-11-13] MEDS: ENOXAPARIN 40 MG/0.4 ML SYG SC SCH (08:41)
[2017-11-13] MEDS: DOCUSATE SODIUM 10 MG/ML (10ML CUP) GTB SCH ×3 (08:44→20:36)
[2017-11-13 08:52] LABS: BASOPHIL # 0.1 10^3/ul (0.0-0.1); BASOPHILS % 0.6 % (0.0-2.0); EOSINOPHILS # 0.5 10^3/ul (0.0-0.5); EOSINOPHILS % 4.8 % (0.0-7.0); HEMATOCRIT 39.8 % (42.0-52.0); HEMOGLOBIN 11.9 g/dl (14.0-18.0); LYMPHOCYTES # 2.5 10^3/ul (0.8-2.9); MEAN CORPUSCULAR HEMOGLOBIN 24.3 pg (29.0-33.0); MEAN CORPUSCULAR HGB CONC 29.9 g/dl (32.0-37.0); MEAN CORPUSCULAR VOLUME 81.4 fl (82.0-101.0); MONOCYTE # 1.5 10^3/ul (0.3-0.9); MONOCYTES % 13.4 % (0.0-11.0); NEUTROPHIL # 6.6 10^3/ul (1.6-7.5); NEUTROPHILS % 58.8 % (39.0-77.0); PLATELET COUNT 340 10^3/UL (140-415); RED BLOOD COUNT 4.89 10^6/ul (4.70-6.10); RED CELL DISTRIBUTION WIDTH 18.1 % (11.5-14.5); WHITE BLOOD COUNT 11.2 10^3/ul (4.8-10.8)
[2017-11-13 09:01] LABS: CREATININE 0.85 mg/dl (0.61-1.24); POTASSIUM 3.2 mmol/L (3.5-5.1)
[2017-11-13] MEDS: EUCERIN 113 GM CR TOP SCH ×2 (10:11→20:38)
--- NOTE | 2017-11-13 12:53 | CONS ---
Date/Time of Note Date/Time of Note DATE: 11/13/17 TIME: 12:52 Consult Date/Type/Reason Admit Date/Time Oct 14, 2017 at 20:55 Type of Consultation: Pulmonary/CCM Subjective remains comfortable on cpap. moderate secretions. Objective Vital Signs Date Time Temp Pulse Resp B/P Pulse Ox O2 Delivery O2 Flow Rate FiO2 11/13/17 12:35 100 11/13/17 12:13 99.9 18 129/78 94 11/13/17 06:06 30 11/11/17 16:00 CPAP Mechanical Ventilator Intake and Output 11/12/17 11/12/17 11/13/17 14:59 22:59 06:59 Intake Total 1000 ml 1200 ml Output Total 300 ml 450 ml Balance 700 ml 750 ml Results/Medications Result Diagram: 11/13/17 0819 11/13/17 0819 Results 24 hrs Laboratory Tests Test 11/13/17 08:19 White Blood Count 11.2 H Red Blood Count 4.89 Hemoglobin 11.9 L Hematocrit 39.8 L Mean Corpuscular Volume 81.4 L Mean Corpuscular Hemoglobin 24.3 L Mean Corpuscular Hemoglobin Concent 29.9 L Red Cell Distribution Width 18.1 H Platelet Count 340 Mean Platelet Volume 11.0 H Neutrophils % 58.8 Lymphocytes % 22.0 Monocytes % 13.4 H Eosinophils % 4.8 Basophils % 0.6 Nucleated Red Blood Cells % 0.0 Neutrophils # 6.6 Lymphocytes # 2.5 Monocytes # 1.5 H Eosinophils # 0.5 Basophils # 0.1 Nucleated Red Blood Cells # 0.0 Sodium Level 146 H Potassium Level 3.2 L Chloride Level 95 L Carbon Dioxide Level 39 H Anion Gap 15 Blood Urea Nitrogen 14 Creatinine 0.85 Glucose Level 127 Calcium Level 10.0 Medications Current Medications Ondansetron HCl (Zofran Inj) 4 mg Q6H PRN IV NAUSEA AND/OR VOMITING Last administered on 11/02/17 13:46; Admin Dose 4 MG; Start 10/14/17 at 21:30 Nitroglycerin (Nitroglycerin (Sl Tab) 0.4 Mg) 1 tab Q5M PRN SL CHEST PAIN; Start 10/14/17 at 21:30 Acetaminophen (Tylenol Tab) 650 mg Q6H PRN PO PAIN LEVEL 1-3 OR FEVER Last administered on 12/13/17at 05:44; Admin Dose 650 MG; Start 10/14/17 at 21:30 Multi-Ingredient Ointment (Eucerin Cream) 1 applic BID TOP Last administered on 11/13/17 10:11; Admin Dose 1 APPLIC; Start 10/16/17 at 09:00 Triamcinolone Acetonide (Kenalog 0.1% Oint) 1 applic BID TOP Last administered on 11/13/17 08:38; Admin Dose 1 APPLIC; Start 10/16/17 at 14:00 Miscellaneous Information 1 ea NOTE XX ; Start 10/19/17 at 18:00 Glucose (Glutose) 15 gm Q15M PRN PO DECREASED GLUCOSE; Start 10/19/17 at 18:00 Glucose (Glutose) 22.5 gm Q15M PRN PO DECREASED GLUCOSE; Start 10/19/17 at 18: 00 Dextrose (D50w Syringe) 25 ml Q15M PRN IV DECREASED GLUCOSE; Start 10/19/17 at 18:00 Dextrose (D50w Syringe) 50 ml Q15M PRN IV DECREASED GLUCOSE; Start 10/19/17 at 18:00 Glucagon (Glucagen) 1 mg Q15M PRN IM DECREASED GLUCOSE; Start 10/19/17 at 18: 00 Glucose (Glutose) 15 gm Q15M PRN BUCCAL DECREASED GLUCOSE; Start 10/19/17 at 18:00 IV Flush (NS 10 ml) 10 ml PRN PRN IV IV PROTOCOL; Start 10/22/17 at 19:00 Docusate Sodium (Colace Liquid Cup) 100 mg BID GTB Last administered on 10:16; Admin Dose 100 MG; Start 10/24/17 at 21:00 Enoxaparin Sodium (Lovenox) 40 mg DAILY SC Last administered on 11/13/17 08: 41; Admin Dose 40 MG; Start 11/04/17 at 09:00 Lansoprazole (Prevacid) 30 mg BID@18 GTB Last administered on 11/13/17 05: 44; Admin Dose 30 MG; Start 11/04/17 at 18:00 Assessment/Plan Chief Complaint/Hosp Course IMP: 1. Acute on chronic hypercapnic respiratory failure/Failure to wean--s/p trach 2. HFpEF 3. Likely JANA/OHS 4. Possible thromboembolic disease 5. HyperNa+ PLAN: 1. Continue CPAP 7; PS 12 3. Bronchodilators/trach care 4. Continue diuresis; though avoid excessive alkalemia may use diamox 5. Minimize sedation 6. Am CXR/ABG dc subacute. Problems: BRIGETTE CODY MD, [facility] Nov 13, 2017 12:53
[2017-11-13] MEDS: POTASSIUM CHLORIDE (SR) 20 MEQ TAB PO STA ×2 (15:58→16:56)
--- NOTE | 2017-11-13 15:59 | PN ---
Date/Time of Note Date/Time of Note DATE: 11/13/17 TIME: 15:57 Assessment/Plan VTE Prophylaxis VTE Prophylaxis Intervention: SCD's Lines/Catheters IV Catheter Type (from Nrsg): PICC Line Central line still needed: No Urinary Cath still in place: Yes Reason Cath still needed: pres ulcer contaminated by urine Assessment/Plan Assessment/Plan 47 yo M with super morbid obesity, DM presented to SOB intubated for airway protection in setting of CO2 narcosis and pulmonary edema, now sp PEG and trach #prolonged combined hypoxic and hypercapnic respiratory failure sp trach and PEG cont ST #antral ulcer: incidentally found on EGD for PEG -cont acid suppression with PPI #hypernatremia: increase FW #possible PE? therapeutic ATC on hold given gastric ulcer. CM consult in place for imaging at facility that might be able to accommodate pt's weight placed CM cs in place for LTAC Subjective 24 Hr Interval Summary Free Text/Dictation angry this AM Exam/Review of Systems Vital Signs Vitals Vital Signs Date Time Temp Pulse Resp B/P Pulse Ox O2 Delivery O2 Flow Rate FiO2 11/13/17 15:55 100.1 100 18 125/75 98 11/13/17 06:06 30 11/11/17 16:00 CPAP Mechanical Ventilator Intake and Output 11/12/17 11/12/17 11/13/17 15:00 23:00 07:00 Intake Total 1000 ml 1200 ml Output Total 300 ml 450 ml Balance 700 ml 750 ml Exam frustrated trach site c/d/i no mrg obese LEs unchanged Results Result Diagram: 11/13/17 0819 11/13/17 0819 Results 24 hrs Laboratory Tests Test 11/13/17 08:19 White Blood Count 11.2 H Red Blood Count 4.89 Hemoglobin 11.9 L Hematocrit 39.8 L Mean Corpuscular Volume 81.4 L Mean Corpuscular Hemoglobin 24.3 L Mean Corpuscular Hemoglobin Concent 29.9 L Red Cell Distribution Width 18.1 H Platelet Count 340 Mean Platelet Volume 11.0 H Neutrophils % 58.8 Lymphocytes % 22.0 Monocytes % 13.4 H Eosinophils % 4.8 Basophils % 0.6 Nucleated Red Blood Cells % 0.0 Neutrophils # 6.6 Lymphocytes # 2.5 Monocytes # 1.5 H Eosinophils # 0.5 Basophils # 0.1 Nucleated Red Blood Cells # 0.0 Sodium Level 146 H Potassium Level 3.2 L Chloride Level 95 L Carbon Dioxide Level 39 H Anion Gap 15 Blood Urea Nitrogen 14 Creatinine 0.85 Glucose Level 127 Calcium Level 10.0 Medications Medications Current Medications Ondansetron HCl (Zofran Inj) 4 mg Q6H PRN IV NAUSEA AND/OR VOMITING Last administered on 11/02/17 13:46; Admin Dose 4 MG; Start 10/14/17 at 21:30 Nitroglycerin (Nitroglycerin (Sl Tab) 0.4 Mg) 1 tab Q5M PRN SL CHEST PAIN; Start 10/14/17 at 21:30 Acetaminophen (Tylenol Tab) 650 mg Q6H PRN PO PAIN LEVEL 1-3 OR FEVER Last administered on 11/13/17 05:44; Admin Dose 650 MG; Start 10/14/17 at 21:30 Multi-Ingredient Ointment (Eucerin Cream) 1 applic BID TOP Last administered on 11/13/17 10:11; Admin Dose 1 APPLIC; Start 10/16/17 at 09:00 Triamcinolone Acetonide (Kenalog 0.1% Oint) 1 applic BID TOP Last administered on 11/13/17 08:38; Admin Dose 1 APPLIC; Start 10/16/17 at 14:00 Miscellaneous Information 1 ea NOTE XX ; Start 10/19/17 at 18:00 Glucose (Glutose) 15 gm Q15M PRN PO DECREASED GLUCOSE; Start 10/19/17 at 18:00 Glucose (Glutose) 22.5 gm Q15M PRN PO DECREASED GLUCOSE; Start 10/19/17 at 18: 00 Dextrose (D50w Syringe) 25 ml Q15M PRN IV DECREASED GLUCOSE; Start 10/19/17 at 18:00 Dextrose (D50w Syringe) 50 ml Q15M PRN IV DECREASED GLUCOSE; Start 10/19/17 at 18:00 Glucagon (Glucagen) 1 mg Q15M PRN IM DECREASED GLUCOSE; Start 10/19/17 at 18: 00 Glucose (Glutose) 15 gm Q15M PRN BUCCAL DECREASED GLUCOSE; Start 10/19/17 at 18:00 IV Flush (NS 10 ml) 10 ml PRN PRN IV IV PROTOCOL; Start 10/22/17 at 19:00 Docusate Sodium (Colace Liquid Cup) 100 mg BID GTB Last administered on 10:16; Admin Dose 100 MG; Start 10/24/17 at 21:00 Enoxaparin Sodium (Lovenox) 40 mg DAILY SC Last administered on 11/13/17 08: 41; Admin Dose 40 MG; Start 11/04/17 at 09:00 Lansoprazole (Prevacid) 30 mg BID@,18 GTB Last administered on 11/13/17 05: 44; Admin Dose 30 MG; Start 11/04/17 at 18:00 LEXII LADD MD Nov 13, 2017 15:59
[2017-11-13] MEDS ORDERED: POTASSIUM CHLORIDE 20 MEQ POWDER FOR ORAL SOLN PO STA (17:14)
[2017-11-14] VITALS (25 sets, daily range): BP systolic 129–154; BP diastolic 79–97; PULSE 98–120; RESP 15–31
[2017-11-14] MEDS: LANSOPRAZOLE 30 MG CAP GTB SCH ×2 (05:58→18:49)
--- NOTE | 2017-11-14 10:58 | PN ---
Date/Time of Note Date/Time of Note DATE: 11/14/17 TIME: 10:57 Assessment/Plan VTE Prophylaxis VTE Prophylaxis Intervention: SCD's Lines/Catheters IV Catheter Type (from Nrsg): PICC Line Central line still needed: No Urinary Cath still in place: Yes Reason Cath still needed: pres ulcer contaminated by urine Assessment/Plan Assessment/Plan 47 yo M with super morbid obesity, DM presented to SOB intubated for airway protection in setting of CO2 narcosis and pulmonary edema, now sp PEG and trach #prolonged combined hypoxic and hypercapnic respiratory failure sp trach and PEG cont ST #antral ulcer: incidentally found on EGD for PEG -cont acid suppression with PPI #hypernatremia: increase FW #possible PE? therapeutic ATC on hold given gastric ulcer. CM consult in place for imaging at facility that might be able to accommodate pt's weight placed CM cs in place for LTAC. still awaiting placement Subjective 24 Hr Interval Summary Free Text/Dictation much calmer this AM. no longer restrained Exam/Review of Systems Vital Signs Vitals Vital Signs Date Time Temp Pulse Resp B/P Pulse Ox O2 Delivery O2 Flow Rate FiO2 11/14/17 08:17 98 11/14/17 08:16 98.5 15 132/84 97 11/14/17 05:33 30 11/11/17 16:00 CPAP Mechanical Ventilator Intake and Output 11/13/17 11/13/17 11/14/17 15:00 23:00 07:00 Intake Total 1000 ml 1200 ml Output Total 350 ml 300 ml Balance 650 ml 900 ml Exam requesting Sprite, using straw to drink water no mrg obese no new skin changes fox in place Results Result Diagram: 11/13/1719 11/13/1719 Medications Medications Current Medications Ondansetron HCl (Zofran Inj) 4 mg Q6H PRN IV NAUSEA AND/OR VOMITING Last administered on 11/02/17 13:46; Admin Dose 4 MG; Start 10/14/17 at 21:30 Nitroglycerin (Nitroglycerin (Sl Tab) 0.4 Mg) 1 tab Q5M PRN SL CHEST PAIN; Start 10/14/17 at 21:30 Acetaminophen (Tylenol Tab) 650 mg Q6H PRN PO PAIN LEVEL 1-3 OR FEVER Last administered on 11/13/17 05:44; Admin Dose 650 MG; Start 10/14/17 at 21:30 Multi-Ingredient Ointment (Eucerin Cream) 1 applic BID TOP Last administered on 11/13/17 20:38; Admin Dose 1 APPLIC; Start 10/16/17 at 09:00 Triamcinolone Acetonide (Kenalog 0.1% Oint) 1 applic BID TOP Last administered on 11/13/17 20:38; Admin Dose 1 APPLIC; Start 10/16/17 at 14:00 Miscellaneous Information 1 ea NOTE XX ; Start 10/19/17 at 18:00 Glucose (Glutose) 15 gm Q15M PRN PO DECREASED GLUCOSE; Start 10/19/17 at 18:00 Glucose (Glutose) 22.5 gm Q15M PRN PO DECREASED GLUCOSE; Start 10/19/17 at 18: 00 Dextrose (D50w Syringe) 25 ml Q15M PRN IV DECREASED GLUCOSE; Start 10/19/17 at 18:00 Dextrose (D50w Syringe) 50 ml Q15M PRN IV DECREASED GLUCOSE; Start 10/19/17 at 18:00 Glucagon (Glucagen) 1 mg Q15M PRN IM DECREASED GLUCOSE; Start 10/19/17 at 18: 00 Glucose (Glutose) 15 gm Q15M PRN BUCCAL DECREASED GLUCOSE; Start 10/19/17 at 18:00 IV Flush (NS 10 ml) 10 ml PRN PRN IV IV PROTOCOL; Start 10/22/17 at 19:00 Docusate Sodium (Colace Liquid Cup) 100 mg BID GTB Last administered on 10:16; Admin Dose 100 MG; Start 10/24/17 at 21:00 Enoxaparin Sodium (Lovenox) 40 mg DAILY SC Last administered on 11/13/17 08: 41; Admin Dose 40 MG; Start 11/04/17 at 09:00 Lansoprazole (Prevacid) 30 mg BID@18 GTB Last administered on 11/14/17 05: 58; Admin Dose 30 MG; Start 11/04/17 at 18:00 LEXII LADD MD Nov 14, 2017 10:58
[2017-11-14] MEDS: EUCERIN 113 GM CR TOP SCH ×2 (11:02→21:20)
[2017-11-14] MEDS: TRIAMCINOLONE ACET 0.1% 15 GM OINT TOP SCH ×2 (11:03→21:19)
[2017-11-14] MEDS: DOCUSATE SODIUM 10 MG/ML (10ML CUP) GTB SCH ×2 (11:04→21:00)
[2017-11-14] MEDS: ENOXAPARIN 40 MG/0.4 ML SYG SC SCH (11:16)
--- NOTE | 2017-11-14 12:50 | CONS ---
Date/Time of Note Date/Time of Note DATE: 11/14/17 TIME: 12:48 Consult Date/Type/Reason Admit Date/Time Oct 14, 2017 at 20:55 Type of Consultation: Pulmonary/CCM Subjective Comfortable Objective Vital Signs Date Time Temp Pulse Resp B/P Pulse Ox O2 Delivery O2 Flow Rate FiO2 11/14/17 11:50 101 16 98 30 11/14/17 08:16 98.5 132/84 11/11/17 16:00 CPAP Mechanical Ventilator Intake and Output 11/13/17 11/13/17 11/14/17 15:00 23:00 07:00 Intake Total 1000 ml 1200 ml Output Total 350 ml 300 ml Balance 650 ml 900 ml Exam GENERAL: Morbidly obese gentleman comfortable at rest. Continues CPAP via tracheostomy. VITAL SIGNS: per chart NECK: Supple. No JVD or lymphadenopathy. CARDIAC EXAM: S1, S2. No added sounds or murmurs. CHEST: clear bilaterally, No added sounds, rales or wheezes ABDOMEN: Soft, nontender. No guarding or rebound. EXTREMITIES: No cyanosis, clubbing , NEUROLOGIC: Generalized weakness. No focal deficits. Edema +2 Results/Medications Result Diagram: 11/13/1781811/13/17818 Medications Current Medications Ondansetron HCl (Zofran Inj) 4 mg Q6H PRN IV NAUSEA AND/OR VOMITING Last administered on 11/02/17 13:46; Admin Dose 4 MG; Start 10/14/17 at 21:30 Nitroglycerin (Nitroglycerin (Sl Tab) 0.4 Mg) 1 tab Q5M PRN SL CHEST PAIN; Start 10/14/17 at 21:30 Acetaminophen (Tylenol Tab) 650 mg Q6H PRN PO PAIN LEVEL 1-3 OR FEVER Last administered on 11/13/17 05:44; Admin Dose 650 MG; Start 10/14/17 at 21:30 Multi-Ingredient Ointment (Eucerin Cream) 1 applic BID TOP Last administered on 11/14/17 11:02; Admin Dose 1 APPLIC; Start 10/16/17 at 09:00 Triamcinolone Acetonide (Kenalog 0.1% Oint) 1 applic BID TOP Last administered on 11/14/17 11:03; Admin Dose 1 APPLIC; Start 10/16/17 at 14:00 Miscellaneous Information 1 ea NOTE XX ; Start 10/19/17 at 18:00 Glucose (Glutose) 15 gm Q15M PRN PO DECREASED GLUCOSE; Start 10/19/17 at 18:00 Glucose (Glutose) 22.5 gm Q15M PRN PO DECREASED GLUCOSE; Start 10/19/17 at 18: 00 Dextrose (D50w Syringe) 25 ml Q15M PRN IV DECREASED GLUCOSE; Start 10/19/17 at 18:00 Dextrose (D50w Syringe) 50 ml Q15M PRN IV DECREASED GLUCOSE; Start 10/19/17 at 18:00 Glucagon (Glucagen) 1 mg Q15M PRN IM DECREASED GLUCOSE; Start 10/19/17 at 18: 00 Glucose (Glutose) 15 gm Q15M PRN BUCCAL DECREASED GLUCOSE; Start 10/19/17 at 18:00 IV Flush (NS 10 ml) 10 ml PRN PRN IV IV PROTOCOL; Start 10/22/17 at 19:00 Docusate Sodium (Colace Liquid Cup) 100 mg BID GTB Last administered on 11:04; Admin Dose 100 MG; Start 10/24/17 at 21:00 Enoxaparin Sodium (Lovenox) 40 mg DAILY SC Last administered on 11/14/17 11: 16; Admin Dose 40 MG; Start 11/04/17 at 09:00 Lansoprazole (Prevacid) 30 mg BID@06,18 GTB Last administered on 11/14/17 05: 58; Admin Dose 30 MG; Start 11/04/17 at 18:00 Alteplase, Recombinant (Cathflo (Activase)) 4 mg ONCE CATHETER ; Start at 13:30; Stop 11/14/17 at 13:31 Assessment/Plan Chief Complaint/Hosp Course IMP: 1. Acute on chronic hypercapnic respiratory failure/Failure to wean--s/p trach 2. HFpEF 3. Likely JANA/OHS 4. Possible thromboembolic disease 5. HyperNa+ PLAN: 1. Trial cool aerosol and PMV 2. Bronchodilators/trach care 3. would hold diuresis. Problems: BRIGETTE CODY MD, [facility] Nov 14, 2017 12:50
[2017-11-14] MEDS ORDERED: ALTEPLASE (CATHFLO) 2 MG INJ CATHETER SCH (13:30)
[2017-11-14 21:59] LABS: ABNORMAL IP MESSAGE 1; BASOPHIL # 0.1 10^3/ul (0.0-0.1); BASOPHILS % 0.7 % (0.0-2.0); EOSINOPHILS # 0.2 10^3/ul (0.0-0.5); EOSINOPHILS % 1.7 % (0.0-7.0); HEMATOCRIT 39.7 % (42.0-52.0); LYMPHOCYTES # 2.3 10^3/ul (0.8-2.9); LYMPHOCYTES % 17.3 % (15.0-51.0); MEAN CORPUSCULAR HEMOGLOBIN 24.6 pg (29.0-33.0); MEAN CORPUSCULAR HGB CONC 30.2 g/dl (32.0-37.0); MEAN CORPUSCULAR VOLUME 81.5 fl (82.0-101.0); MONOCYTE # 1.6 10^3/ul (0.3-0.9); MONOCYTES % 11.9 % (0.0-11.0); NEUTROPHILS % 67.8 % (39.0-77.0); PLATELET COUNT 322 10^3/UL (140-415); POSITIVE DIFF @See below; RED BLOOD COUNT 4.87 10^6/ul (4.70-6.10); WHITE BLOOD COUNT 13.3 10^3/ul (4.8-10.8)
[2017-11-14 22:26] LABS: CALCIUM 9.5 mg/dl (8.4-10.2); CREATININE 0.88 mg/dl (0.61-1.24); POTASSIUM 3.7 mmol/L (3.5-5.1)
[2017-11-14] MEDS ORDERED: LORAZEPAM 2 MG INJ IV ONE (23:30)
[2017-11-15] VITALS (13 sets, daily range): BP systolic 119–142; BP diastolic 67–88; PULSE 87–108; RESP 18–28
[2017-11-15] MEDS: LANSOPRAZOLE 30 MG CAP GTB SCH ×2 (06:26→17:05)
[2017-11-15] MEDS: DOCUSATE SODIUM 10 MG/ML (10ML CUP) GTB SCH ×2 (08:11→21:32)
[2017-11-15] MEDS: EUCERIN 113 GM CR TOP SCH ×2 (08:11→21:32)
[2017-11-15] MEDS: TRIAMCINOLONE ACET 0.1% 15 GM OINT TOP SCH ×2 (08:11→21:32)
[2017-11-15 08:21] LABS: BASOPHIL # 0.1 10^3/ul (0.0-0.1); BASOPHILS % 0.7 % (0.0-2.0); EOSINOPHILS # 0.3 10^3/ul (0.0-0.5); EOSINOPHILS % 2.5 % (0.0-7.0); HEMATOCRIT 38.5 % (42.0-52.0); HEMOGLOBIN 11.9 g/dl (14.0-18.0); LYMPHOCYTES # 2.9 10^3/ul (0.8-2.9); MEAN CORPUSCULAR HEMOGLOBIN 25.1 pg (29.0-33.0); MEAN CORPUSCULAR HGB CONC 30.9 g/dl (32.0-37.0); MEAN CORPUSCULAR VOLUME 81.1 fl (82.0-101.0); MEAN PLATELET VOLUME 11.4 fl (7.4-10.4); MONOCYTE # 1.3 10^3/ul (0.3-0.9); MONOCYTES % 10.4 % (0.0-11.0); NEUTROPHIL # 7.6 10^3/ul (1.6-7.5); NEUTROPHILS % 61.8 % (39.0-77.0); PLATELET COUNT 311 10^3/UL (140-415); RED BLOOD COUNT 4.75 10^6/ul (4.70-6.10); RED CELL DISTRIBUTION WIDTH 17.9 % (11.5-14.5); WHITE BLOOD COUNT 12.2 10^3/ul (4.8-10.8)
[2017-11-15 09:02] LABS: CALCIUM 9.4 mg/dl (8.4-10.2); CREATININE 0.82 mg/dl (0.61-1.24); POTASSIUM 3.5 mmol/L (3.5-5.1)
[2017-11-15] MEDS: ENOXAPARIN 40 MG/0.4 ML SYG SC SCH (09:44)
--- NOTE | 2017-11-15 13:40 | PN ---
Date/Time of Note Date/Time of Note DATE: 11/15/17 TIME: 13:38 Assessment/Plan VTE Prophylaxis VTE Prophylaxis Intervention: SCD's Lines/Catheters IV Catheter Type (from Nrsg): PICC Line Central line still needed: No Urinary Cath still in place: Yes Reason Cath still needed: skin wounds contaminated by urine Assessment/Plan Assessment/Plan 47 yo M with super morbid obesity, DM presented to SOB intubated for airway protection in setting of CO2 narcosis and pulmonary edema, now sp PEG and trach #prolonged combined hypoxic and hypercapnic respiratory failure sp trach and PEG and vent weaning cont ST #antral ulcer: incidentally found on EGD for PEG -cont acid suppression with PPI #hypernatremia: resolved #possible PE? therapeutic ATC on hold given gastric ulcer. CM consult in place for imaging at facility that might be able to accommodate pt's weight placed CM cs in place for LTAC. still awaiting placement Subjective 24 Hr Interval Summary Free Text/Dictation really wants to go home Exam/Review of Systems Vital Signs Vitals Vital Signs Date Time Temp Pulse Resp B/P Pulse Ox O2 Delivery O2 Flow Rate FiO2 11/15/17 12:08 98.0 100 20 130/69 98 11/15/17 11:45 8.0 35 11/15/17 11:45 Aerosol Mask Intake and Output 11/14/17 11/14/17 11/15/17 15:00 23:00 07:00 Intake Total 1800 ml 1000 ml Output Total 250 ml 700 ml Balance 1550 ml 300 ml Exam frustrated, tearful trach c/d/i. no significant secretions noted when RT suctioned no mrg good air movement LEs unchanged WBCs noted, Na nl Results Result Diagram: 11/15/17 0744 11/15/17 0744 Results 24 hrs Laboratory Tests Test 11/14/17 21:30 11/15/17 07:44 White Blood Count 13.3 H 12.2 H Red Blood Count 4.87 4.75 Hemoglobin 12.0 L 11.9 L Hematocrit 39.7 L 38.5 L Mean Corpuscular Volume 81.5 L 81.1 L Mean Corpuscular Hemoglobin 24.6 L 25.1 L Mean Corpuscular Hemoglobin Concent 30.2 L 30.9 L Red Cell Distribution Width 18.0 H 17.9 H Platelet Count 322 311 Mean Platelet Volume 11.0 H 11.4 H Neutrophils % 67.8 61.8 Lymphocytes % 17.3 24.0 Monocytes % 11.9 H 10.4 Eosinophils % 1.7 2.5 Basophils % 0.7 0.7 Nucleated Red Blood Cells % 0.0 0.0 Neutrophils # 9.0 H 7.6 H Lymphocytes # 2.3 2.9 Monocytes # 1.6 H 1.3 H Eosinophils # 0.2 0.3 Basophils # 0.1 0.1 Nucleated Red Blood Cells # 0.0 0.0 Sodium Level 138 137 Potassium Level 3.7 3.5 Chloride Level 90 L 90 L Carbon Dioxide Level 36 H 36 H Anion Gap 16 15 Blood Urea Nitrogen 17 15 Creatinine 0.88 0.82 Glucose Level 127 120 Calcium Level 9.5 9.4 Medications Medications Current Medications Ondansetron HCl (Zofran Inj) 4 mg Q6H PRN IV NAUSEA AND/OR VOMITING Last administered on 11/02/17 13:46; Admin Dose 4 MG; Start 10/14/17 at 21:30 Nitroglycerin (Nitroglycerin (Sl Tab) 0.4 Mg) 1 tab Q5M PRN SL CHEST PAIN; Start 10/14/17 at 21:30 Acetaminophen (Tylenol Tab) 650 mg Q6H PRN PO PAIN LEVEL 1-3 OR FEVER Last administered on 11/13/17 05:44; Admin Dose 650 MG; Start 10/14/17 at 21:30 Multi-Ingredient Ointment (Eucerin Cream) 1 applic BID TOP Last administered on 11/15/17 08:11; Admin Dose 1 APPLIC; Start 10/16/17 at 09:00 Triamcinolone Acetonide (Kenalog 0.1% Oint) 1 applic BID TOP Last administered on 11/15/17 08:11; Admin Dose 1 APPLIC; Start 10/16/17 at 14:00 Miscellaneous Information 1 ea NOTE XX ; Start 10/19/17 at 18:00 Glucose (Glutose) 15 gm Q15M PRN PO DECREASED GLUCOSE; Start 10/19/17 at 18:00 Glucose (Glutose) 22.5 gm Q15M PRN PO DECREASED GLUCOSE; Start 10/19/17 at 18: 00 Dextrose (D50w Syringe) 25 ml Q15M PRN IV DECREASED GLUCOSE; Start 10/19/17 at 18:00 Dextrose (D50w Syringe) 50 ml Q15M PRN IV DECREASED GLUCOSE; Start 10/19/17 at 18:00 Glucagon (Glucagen) 1 mg Q15M PRN IM DECREASED GLUCOSE; Start 10/19/17 at 18: 00 Glucose (Glutose) 15 gm Q15M PRN BUCCAL DECREASED GLUCOSE; Start 10/19/17 at 18:00 IV Flush (NS 10 ml) 10 ml PRN PRN IV IV PROTOCOL; Start 10/22/17 at 19:00 Docusate Sodium (Colace Liquid Cup) 100 mg BID GTB Last administered on 11:04; Admin Dose 100 MG; Start 10/24/17 at 21:00 Enoxaparin Sodium (Lovenox) 40 mg DAILY SC Last administered on 11/15/17 09: 44; Admin Dose 40 MG; Start 11/04/17 at 09:00 Lansoprazole (Prevacid) 30 mg BID@ GTB Last administered on 11/15/17 06: 26; Admin Dose 30 MG; Start 11/04/17 at 18:00 LEXII LADD MD Nov 15, 2017 13:40
--- NOTE | 2017-11-15 16:20 | CONS ---
Date/Time of Note Date/Time of Note DATE: 11/15/17 TIME: 16:19 Consult Date/Type/Reason Admit Date/Time Oct 14, 2017 at 20:55 Type of Consultation: Pulmonary/CCM Subjective Comfortable, placed on CA. Objective Vital Signs Date Time Temp Pulse Resp B/P Pulse Ox O2 Delivery O2 Flow Rate FiO2 11/15/17 15:48 98.2 90 18 142/88 98 11/15/17 11:45 8.0 35 11/15/17 11:45 Aerosol Mask Intake and Output 11/14/17 11/14/17 11/15/17 14:59 22:59 06:59 Intake Total 1800 ml Output Total 250 ml 350 ml Balance 1550 ml -350 ml Exam GENERAL: Morbidly obese gentleman comfortable at rest. Trial of CA. VITAL SIGNS: per chart NECK: Supple. No JVD or lymphadenopathy. CARDIAC EXAM: S1, S2. No added sounds or murmurs. CHEST: clear bilaterally, No added sounds, rales or wheezes ABDOMEN: Soft, nontender. No guarding or rebound. EXTREMITIES: No cyanosis, clubbing , NEUROLOGIC: Generalized weakness. No focal deficits. Edema +2 Results/Medications Result Diagram: 11/15/17 0744 11/15/17 0744 Results 24 hrs Laboratory Tests Test 11/14/17 21:30 11/15/17 07:44 White Blood Count 13.3 H 12.2 H Red Blood Count 4.87 4.75 Hemoglobin 12.0 L 11.9 L Hematocrit 39.7 L 38.5 L Mean Corpuscular Volume 81.5 L 81.1 L Mean Corpuscular Hemoglobin 24.6 L 25.1 L Mean Corpuscular Hemoglobin Concent 30.2 L 30.9 L Red Cell Distribution Width 18.0 H 17.9 H Platelet Count 322 311 Mean Platelet Volume 11.0 H 11.4 H Neutrophils % 67.8 61.8 Lymphocytes % 17.3 24.0 Monocytes % 11.9 H 10.4 Eosinophils % 1.7 2.5 Basophils % 0.7 0.7 Nucleated Red Blood Cells % 0.0 0.0 Neutrophils # 9.0 H 7.6 H Lymphocytes # 2.3 2.9 Monocytes # 1.6 H 1.3 H Eosinophils # 0.2 0.3 Basophils # 0.1 0.1 Nucleated Red Blood Cells # 0.0 0.0 Sodium Level 138 137 Potassium Level 3.7 3.5 Chloride Level 90 L 90 L Carbon Dioxide Level 36 H 36 H Anion Gap 16 15 Blood Urea Nitrogen 17 15 Creatinine 0.88 0.82 Glucose Level 127 120 Calcium Level 9.5 9.4 Medications Current Medications Ondansetron HCl (Zofran Inj) 4 mg Q6H PRN IV NAUSEA AND/OR VOMITING Last administered on 11/02/17 13:46; Admin Dose 4 MG; Start 10/14/17 at 21:30 Nitroglycerin (Nitroglycerin (Sl Tab) 0.4 Mg) 1 tab Q5M PRN SL CHEST PAIN; Start 10/14/17 at 21:30 Acetaminophen (Tylenol Tab) 650 mg Q6H PRN PO PAIN LEVEL 1-3 OR FEVER Last administered on 11/13/17 05:44; Admin Dose 650 MG; Start 10/14/17 at 21:30 Multi-Ingredient Ointment (Eucerin Cream) 1 applic BID TOP Last administered on 11/15/17 08:11; Admin Dose 1 APPLIC; Start 10/16/17 at 09:00 Triamcinolone Acetonide (Kenalog 0.1% Oint) 1 applic BID TOP Last administered on 11/15/17 08:11; Admin Dose 1 APPLIC; Start 10/16/17 at 14:00 Miscellaneous Information 1 ea NOTE XX ; Start 10/19/17 at 18:00 Glucose (Glutose) 15 gm Q15M PRN PO DECREASED GLUCOSE; Start 10/19/17 at 18:00 Glucose (Glutose) 22.5 gm Q15M PRN PO DECREASED GLUCOSE; Start 10/19/17 at 18: 00 Dextrose (D50w Syringe) 25 ml Q15M PRN IV DECREASED GLUCOSE; Start 10/19/17 at 18:00 Dextrose (D50w Syringe) 50 ml Q15M PRN IV DECREASED GLUCOSE; Start 10/19/17 at 18:00 Glucagon (Glucagen) 1 mg Q15M PRN IM DECREASED GLUCOSE; Start 10/19/17 at 18: 00 Glucose (Glutose) 15 gm Q15M PRN BUCCAL DECREASED GLUCOSE; Start 10/19/17 at 18:00 IV Flush (NS 10 ml) 10 ml PRN PRN IV IV PROTOCOL; Start 10/22/17 at 19:00 Docusate Sodium (Colace Liquid Cup) 100 mg BID GTB Last administered on 11:04; Admin Dose 100 MG; Start 10/24/17 at 21:00 Enoxaparin Sodium (Lovenox) 40 mg DAILY SC Last administered on 11/15/17 09: 44; Admin Dose 40 MG; Start 11/04/17 at 09:00 Lansoprazole (Prevacid) 30 mg BID@,18 GTB Last administered on 11/15/17 06: 26; Admin Dose 30 MG; Start 11/04/17 at 18:00 Assessment/Plan Chief Complaint/Hosp Course IMP: 1. Acute on chronic hypercapnic respiratory failure/Failure to wean--s/p trach 2. HFpEF 3. Likely JANA/OHS 4. Possible thromboembolic disease 5. HyperNa+ PLAN: 1. Trial cool aerosol and PMV 2. Bronchodilators/trach care 3. would hold diuresis. Problems: BRIGETTE CODY MD, [facility] Nov 15, 2017 16:20
[2017-11-16] VITALS (14 sets, daily range): BP systolic 133–155; BP diastolic 78–96; PULSE 95–110; RESP 18–28
[2017-11-16] MEDS: LANSOPRAZOLE 30 MG CAP GTB SCH ×2 (06:22→17:55)
[2017-11-16 06:41] LABS: BASOPHIL # 0.1 10^3/ul (0.0-0.1); EOSINOPHILS # 0.6 10^3/ul (0.0-0.5); EOSINOPHILS % 5.2 % (0.0-7.0); HEMATOCRIT 39.9 % (42.0-52.0); HEMOGLOBIN 12.1 g/dl (14.0-18.0); LYMPHOCYTES # 3.2 10^3/ul (0.8-2.9); LYMPHOCYTES % 28.8 % (15.0-51.0); MEAN CORPUSCULAR HEMOGLOBIN 24.7 pg (29.0-33.0); MEAN CORPUSCULAR HGB CONC 30.3 g/dl (32.0-37.0); MEAN CORPUSCULAR VOLUME 81.4 fl (82.0-101.0); MONOCYTE # 1.4 10^3/ul (0.3-0.9); MONOCYTES % 12.4 % (0.0-11.0); NEUTROPHIL # 5.7 10^3/ul (1.6-7.5); NEUTROPHILS % 51.9 % (39.0-77.0); PLATELET COUNT 304 10^3/UL (140-415); RED CELL DISTRIBUTION WIDTH 17.4 % (11.5-14.5); WHITE BLOOD COUNT 10.9 10^3/ul (4.8-10.8)
[2017-11-16 07:19] LABS: CALCIUM 9.7 mg/dl (8.4-10.2); CREATININE 0.86 mg/dl (0.61-1.24); POTASSIUM 3.4 mmol/L (3.5-5.1)
[2017-11-16] MEDS: TRIAMCINOLONE ACET 0.1% 15 GM OINT TOP SCH ×2 (07:42→21:00)
[2017-11-16] MEDS: DOCUSATE SODIUM 10 MG/ML (10ML CUP) GTB SCH ×2 (07:42→21:00)
[2017-11-16] MEDS: EUCERIN 113 GM CR TOP SCH ×2 (07:42→21:00)
[2017-11-16] MEDS: ENOXAPARIN 40 MG/0.4 ML SYG SC SCH (09:36)
--- NOTE | 2017-11-16 12:54 | CONS ---
Date/Time of Note Date/Time of Note DATE: 11/16/17 TIME: 12:53 Consult Date/Type/Reason Admit Date/Time Oct 14, 2017 at 20:55 Type of Consultation: Pulmonary/CCM Subjective Patient remains stable. No new events. Continues cool aerosol without respiratory distress. Agitated requesting transfer to [facility]. Objective Vital Signs Date Time Temp Pulse Resp B/P Pulse Ox O2 Delivery O2 Flow Rate FiO2 11/16/17 12:37 Trach Collar 11/16/17 12:28 98.6 78 18 155/82 99 11/16/17 06:25 8.0 35 Intake and Output 11/15/17 11/15/17 11/16/17 15:00 23:00 07:00 Intake Total 900 ml 1000 ml Output Total 1200 ml 550 ml Balance -300 ml 450 ml Exam GENERAL: Morbidly obese gentleman comfortable at rest. Trial of CA. VITAL SIGNS: per chart NECK: Supple. No JVD or lymphadenopathy. CARDIAC EXAM: S1, S2. No added sounds or murmurs. CHEST: clear bilaterally, No added sounds, rales or wheezes ABDOMEN: Soft, nontender. No guarding or rebound. EXTREMITIES: No cyanosis, clubbing , NEUROLOGIC: Generalized weakness. No focal deficits. Edema +2 Results/Medications Result Diagram: 11/16/17 0610 11/16/17 0610 Results 24 hrs Laboratory Tests Test 11/16/17 06:10 White Blood Count 10.9 H Red Blood Count 4.90 Hemoglobin 12.1 L Hematocrit 39.9 L Mean Corpuscular Volume 81.4 L Mean Corpuscular Hemoglobin 24.7 L Mean Corpuscular Hemoglobin Concent 30.3 L Red Cell Distribution Width 17.4 H Platelet Count 304 Mean Platelet Volume 11.0 H Neutrophils % 51.9 Lymphocytes % 28.8 Monocytes % 12.4 H Eosinophils % 5.2 Basophils % 1.0 Nucleated Red Blood Cells % 0.0 Neutrophils # 5.7 Lymphocytes # 3.2 H Monocytes # 1.4 H Eosinophils # 0.6 H Basophils # 0.1 Nucleated Red Blood Cells # 0.0 Sodium Level 139 Potassium Level 3.4 L Chloride Level 89 L Carbon Dioxide Level 40 H Anion Gap 13 Blood Urea Nitrogen 16 Creatinine 0.86 Glucose Level 117 Calcium Level 9.7 Medications Current Medications Ondansetron HCl (Zofran Inj) 4 mg Q6H PRN IV NAUSEA AND/OR VOMITING Last administered on 11/02/17 13:46; Admin Dose 4 MG; Start 10/14/17 at 21:30 Nitroglycerin (Nitroglycerin (Sl Tab) 0.4 Mg) 1 tab Q5M PRN SL CHEST PAIN; Start 10/14/17 at 21:30 Acetaminophen (Tylenol Tab) 650 mg Q6H PRN PO PAIN LEVEL 1-3 OR FEVER Last administered on 11/13/17 05:44; Admin Dose 650 MG; Start 10/14/17 at 21:30 Multi-Ingredient Ointment (Eucerin Cream) 1 applic BID TOP Last administered on 11/16/17 07:42; Admin Dose 1 APPLIC; Start 10/16/17 at 09:00 Triamcinolone Acetonide (Kenalog 0.1% Oint) 1 applic BID TOP Last administered on 11/16/17 07:42; Admin Dose 1 APPLIC; Start 10/16/17 at 14:00 Miscellaneous Information 1 ea NOTE XX ; Start 10/19/17 at 18:00 Glucose (Glutose) 15 gm Q15M PRN PO DECREASED GLUCOSE; Start 10/19/17 at 18:00 Glucose (Glutose) 22.5 gm Q15M PRN PO DECREASED GLUCOSE; Start 10/19/17 at 18: 00 Dextrose (D50w Syringe) 25 ml Q15M PRN IV DECREASED GLUCOSE; Start 10/19/17 at 18:00 Dextrose (D50w Syringe) 50 ml Q15M PRN IV DECREASED GLUCOSE; Start 10/19/17 at 18:00 Glucagon (Glucagen) 1 mg Q15M PRN IM DECREASED GLUCOSE; Start 10/19/17 at 18: 00 Glucose (Glutose) 15 gm Q15M PRN BUCCAL DECREASED GLUCOSE; Start 10/19/17 at 18:00 IV Flush (NS 10 ml) 10 ml PRN PRN IV IV PROTOCOL; Start 10/22/17 at 19:00 Docusate Sodium (Colace Liquid Cup) 100 mg BID GTB Last administered on 21:32; Admin Dose 100 MG; Start 10/24/17 at 21:00 Enoxaparin Sodium (Lovenox) 40 mg DAILY SC Last administered on 11/16/17 09: 36; Admin Dose 40 MG; Start 11/04/17 at 09:00 Lansoprazole (Prevacid) 30 mg BID@,18 GTB Last administered on 11/16/17t 06: 22; Admin Dose 30 MG; Start 11/04/17 at 18:00 Assessment/Plan Chief Complaint/Hosp Course IMP: 1. Acute on chronic hypercapnic respiratory failure/Failure to wean--s/p trach 2. HFpEF 3. Likely JANA/OHS 4. Possible thromboembolic disease 5. HyperNa+ PLAN: 1. Trial cool aerosol and PMV 2. Bronchodilators/trach care 3. Physical therapy if tolerated DC planning Problems: [facility] CODY MD, [facility] Nov 16, 2017 12:54
--- NOTE | 2017-11-16 15:09 | PN ---
Date/Time of Note Date/Time of Note DATE: 11/16/17 TIME: 15:07 Assessment/Plan VTE Prophylaxis VTE Prophylaxis Intervention: SCD's Lines/Catheters IV Catheter Type (from Nrsg): PICC Line Central line still needed: No Urinary Cath still in place: Yes Reason Cath still needed: other (indicate) (debility) Assessment/Plan Assessment/Plan 47 yo M with super morbid obesity, DM presented to SOB intubated for airway protection in setting of CO2 narcosis and pulmonary edema, now sp PEG and trach #prolonged combined hypoxic and hypercapnic respiratory failure sp trach and PEG, weaned off vent cont ST #antral ulcer: incidentally found on EGD for PEG -cont acid suppression with PPI #hypernatremia: resolved #possible PE? therapeutic ATC on hold given gastric ulcer. CM consult in place for imaging at facility that might be able to accommodate pt's weight placed CM cs in place for LTAC. still awaiting placement Subjective 24 Hr Interval Summary Free Text/Dictation Talked to pt and aunt this AM. Aunt revealed pt's mom suddenly on Saturday. Pt and aunt tearful at times Exam/Review of Systems Vital Signs Vitals Vital Signs Date Time Temp Pulse Resp B/P Pulse Ox O2 Delivery O2 Flow Rate FiO2 11/16/17 12:37 Trach Collar 11/16/17 12:28 98.6 78 18 155/82 99 11/16/17 06:25 8.0 35 Intake and Output 11/15/17 11/15/17 11/16/17 15:00 23:00 07:00 Intake Total 900 ml 1000 ml Output Total 1200 ml 550 ml Balance -300 ml 450 ml Exam much less agitated no mrg on just o2 from the wall to trach abd soft skin unchanged Results Result Diagram: 11/16/17 0610 11/16/17 0610 Results 24 hrs Laboratory Tests Test 11/16/17 06:10 White Blood Count 10.9 H Red Blood Count 4.90 Hemoglobin 12.1 L Hematocrit 39.9 L Mean Corpuscular Volume 81.4 L Mean Corpuscular Hemoglobin 24.7 L Mean Corpuscular Hemoglobin Concent 30.3 L Red Cell Distribution Width 17.4 H Platelet Count 304 Mean Platelet Volume 11.0 H Neutrophils % 51.9 Lymphocytes % 28.8 Monocytes % 12.4 H Eosinophils % 5.2 Basophils % 1.0 Nucleated Red Blood Cells % 0.0 Neutrophils # 5.7 Lymphocytes # 3.2 H Monocytes # 1.4 H Eosinophils # 0.6 H Basophils # 0.1 Nucleated Red Blood Cells # 0.0 Sodium Level 139 Potassium Level 3.4 L Chloride Level 89 L Carbon Dioxide Level 40 H Anion Gap 13 Blood Urea Nitrogen 16 Creatinine 0.86 Glucose Level 117 Calcium Level 9.7 Medications Medications Current Medications Ondansetron HCl (Zofran Inj) 4 mg Q6H PRN IV NAUSEA AND/OR VOMITING Last administered on 11/02/17 13:46; Admin Dose 4 MG; Start 10/14/17 at 21:30 Nitroglycerin (Nitroglycerin (Sl Tab) 0.4 Mg) 1 tab Q5M PRN SL CHEST PAIN; Start 10/14/17 at 21:30 Acetaminophen (Tylenol Tab) 650 mg Q6H PRN PO PAIN LEVEL 1-3 OR FEVER Last administered on 11/13/17 05:44; Admin Dose 650 MG; Start 10/14/17 at 21:30 Multi-Ingredient Ointment (Eucerin Cream) 1 applic BID TOP Last administered on 11/16/17 07:42; Admin Dose 1 APPLIC; Start 10/16/17 at 09:00 Triamcinolone Acetonide (Kenalog 0.1% Oint) 1 applic BID TOP Last administered on 11/16/17 07:42; Admin Dose 1 APPLIC; Start 10/16/17 at 14:00 Miscellaneous Information 1 ea NOTE XX ; Start 10/19/17 at 18:00 Glucose (Glutose) 15 gm Q15M PRN PO DECREASED GLUCOSE; Start 10/19/17 at 18:00 Glucose (Glutose) 22.5 gm Q15M PRN PO DECREASED GLUCOSE; Start 10/19/17 at 18: 00 Dextrose (D50w Syringe) 25 ml Q15M PRN IV DECREASED GLUCOSE; Start 10/19/17 at 18:00 Dextrose (D50w Syringe) 50 ml Q15M PRN IV DECREASED GLUCOSE; Start 10/19/17 at 18:00 Glucagon (Glucagen) 1 mg Q15M PRN IM DECREASED GLUCOSE; Start 10/19/17 at 18: 00 Glucose (Glutose) 15 gm Q15M PRN BUCCAL DECREASED GLUCOSE; Start 10/19/17 at 18:00 IV Flush (NS 10 ml) 10 ml PRN PRN IV IV PROTOCOL; Start 10/22/17 at 19:00 Docusate Sodium (Colace Liquid Cup) 100 mg BID GTB Last administered on 21:32; Admin Dose 100 MG; Start 10/24/17 at 21:00 Enoxaparin Sodium (Lovenox) 40 mg DAILY SC Last administered on 11/16/17 09: 36; Admin Dose 40 MG; Start 11/04/17 at 09:00 Lansoprazole (Prevacid) 30 mg BID@18 GTB Last administered on 11/16/17 06: 22; Admin Dose 30 MG; Start 11/04/17 at 18:00 LEXII LADD MD Nov 16, 2017 15:09
[2017-11-17] VITALS (9 sets, daily range): BP systolic 118–136; BP diastolic 88–92; PULSE 98–120; RESP 18–20
[2017-11-17] MEDS: LANSOPRAZOLE 30 MG CAP GTB SCH ×2 (06:35→18:02)
--- NOTE | 2017-11-17 11:12 | CONS ---
Date/Time of Note Date/Time of Note DATE: 11/17/17 TIME: 11:11 Consult Date/Type/Reason Admit Date/Time Oct 14, 2017 at 20:55 Type of Consultation: Pulmonary/CCM Subjective Awake alert oriented. Copious secretions from tracheostomy site. Patient requested to drink. Objective Vital Signs Date Time Temp Pulse Resp B/P Pulse Ox O2 Delivery O2 Flow Rate FiO2 11/17/17 08:43 116 11/17/17 07:14 97.7 20 133/92 94 11/17/17 04:55 Aerosol 5.0 28 Intake and Output 11/16/17 11/16/17 11/17/17 15:00 23:00 07:00 Intake Total 1500 ml Output Total 1250 ml Balance 250 ml Exam GENERAL: Morbidly obese gentleman comfortable at rest. Trial of CA. VITAL SIGNS: per chart NECK: Supple. No JVD or lymphadenopathy. CARDIAC EXAM: S1, S2. No added sounds or murmurs. CHEST: clear bilaterally, No added sounds, rales or wheezes ABDOMEN: Soft, nontender. No guarding or rebound. EXTREMITIES: No cyanosis, clubbing , NEUROLOGIC: Generalized weakness. No focal deficits. Edema +2 Results/Medications Result Diagram: 11/16/17 0610 11/16/17 0610 Medications Current Medications Ondansetron HCl (Zofran Inj) 4 mg Q6H PRN IV NAUSEA AND/OR VOMITING Last administered on 11/02/17 13:46; Admin Dose 4 MG; Start 10/14/17 at 21:30 Nitroglycerin (Nitroglycerin (Sl Tab) 0.4 Mg) 1 tab Q5M PRN SL CHEST PAIN; Start 10/14/17 at 21:30 Acetaminophen (Tylenol Tab) 650 mg Q6H PRN PO PAIN LEVEL 1-3 OR FEVER Last administered on 11/13/17 05:44; Admin Dose 650 MG; Start 10/14/17 at 21:30 Multi-Ingredient Ointment (Eucerin Cream) 1 applic BID TOP Last administered on 11/16/17 21:00; Admin Dose 1 APPLIC; Start 10/16/17 at 09:00 Triamcinolone Acetonide (Kenalog 0.1% Oint) 1 applic BID TOP Last administered on 11/16/17 21:00; Admin Dose 1 APPLIC; Start 10/16/17 at 14:00 Miscellaneous Information 1 ea NOTE XX ; Start 10/19/17 at 18:00 Glucose (Glutose) 15 gm Q15M PRN PO DECREASED GLUCOSE; Start 10/19/17 at 18:00 Glucose (Glutose) 22.5 gm Q15M PRN PO DECREASED GLUCOSE; Start 10/19/17 at 18: 00 Dextrose (D50w Syringe) 25 ml Q15M PRN IV DECREASED GLUCOSE; Start 10/19/17 at 18:00 Dextrose (D50w Syringe) 50 ml Q15M PRN IV DECREASED GLUCOSE; Start 10/19/17 at 18:00 Glucagon (Glucagen) 1 mg Q15M PRN IM DECREASED GLUCOSE; Start 10/19/17 at 18: 00 Glucose (Glutose) 15 gm Q15M PRN BUCCAL DECREASED GLUCOSE; Start 10/19/17 at 18:00 IV Flush (NS 10 ml) 10 ml PRN PRN IV IV PROTOCOL; Start 10/22/17 at 19:00 Docusate Sodium (Colace Liquid Cup) 100 mg BID GTB Last administered on 21:32; Admin Dose 100 MG; Start 10/24/17 at 21:00 Enoxaparin Sodium (Lovenox) 40 mg DAILY SC Last administered on 11/16/17 09: 36; Admin Dose 40 MG; Start 11/04/17 at 09:00 Lansoprazole (Prevacid) 30 mg BID@,18 GTB Last administered on 11/17/17 06: 35; Admin Dose 30 MG; Start 11/04/17 at 18:00 Assessment/Plan Chief Complaint/Hosp Course IMP: 1. Acute on chronic hypercapnic respiratory failure/Failure to wean--s/p trach 2. HFpEF 3. Likely JANA/OHS 4. Possible thromboembolic disease 5. HyperNa+ PLAN: 1. Trial cool aerosol and PMV 2. Bronchodilators/trach care 3. Physical therapy if tolerated 4. Sputum studies. DC planning Problems: [facility], [facility] Nov 17, 2017 11:12
[2017-11-17] MEDS ORDERED: POTASSIUM CHLORIDE (SR) 20 MEQ TAB PO STA (12:44)
--- NOTE | 2017-11-17 12:44 | PN ---
Date/Time of Note Date/Time of Note DATE: 11/17/17 TIME: 12:35 Assessment/Plan VTE Prophylaxis VTE Prophylaxis Intervention: SCD's Lines/Catheters IV Catheter Type (from Nrsg): PICC Line Central line still needed: No Urinary Cath still in place: Yes Reason Cath still needed: other (indicate) (morbid obesity) Assessment/Plan Assessment/Plan 47 yo M with super morbid obesity, DM presented to SOB intubated for airway protection in setting of CO2 narcosis and pulmonary edema, now sp PEG and trach #prolonged combined hypoxic and hypercapnic respiratory failure sp trach and PEG, weaned off vent during the day. Should be on CPAP qHS cont ST #antral ulcer: incidentally found on EGD for PEG -cont acid suppression with PPI #hypernatremia: resolved #possible PE? therapeutic ATC on hold given gastric ulcer. CM consult in place for imaging at facility that might be able to accommodate pt's weight placed. CM aware CM cs in place for LTAC. still awaiting placement Subjective 24 Hr Interval Summary Free Text/Dictation Pt still appropriately upset about his mother's recent passing Exam/Review of Systems Vital Signs Vitals Vital Signs Date Time Temp Pulse Resp B/P Pulse Ox O2 Delivery O2 Flow Rate FiO2 11/17/17 08:43 116 11/17/17 07:14 97.7 20 133/92 94 11/17/17 04:55 Aerosol 5.0 28 Intake and Output 11/16/17 11/16/17 11/17/17 15:00 23:00 07:00 Intake Total 1500 ml Output Total 1250 ml Balance 250 ml Exam nad no mrg coarse breath sounds +mucoid secretions from trach no rashes LEs unchanged Results Result Diagram: 11/16/17 0610 11/16/17 0610 Medications Medications Current Medications Ondansetron HCl (Zofran Inj) 4 mg Q6H PRN IV NAUSEA AND/OR VOMITING Last administered on 11/02/17 13:46; Admin Dose 4 MG; Start 10/14/17 at 21:30 Nitroglycerin (Nitroglycerin (Sl Tab) 0.4 Mg) 1 tab Q5M PRN SL CHEST PAIN; Start 10/14/17 at 21:30 Acetaminophen (Tylenol Tab) 650 mg Q6H PRN PO PAIN LEVEL 1-3 OR FEVER Last administered on 11/13/17 05:44; Admin Dose 650 MG; Start 10/14/17 at 21:30 Multi-Ingredient Ointment (Eucerin Cream) 1 applic BID TOP Last administered on 11/16/17 21:00; Admin Dose 1 APPLIC; Start 10/16/17 at 09:00 Triamcinolone Acetonide (Kenalog 0.1% Oint) 1 applic BID TOP Last administered on 11/16/17 21:00; Admin Dose 1 APPLIC; Start 10/16/17 at 14:00 Miscellaneous Information 1 ea NOTE XX ; Start 10/19/17 at 18:00 Glucose (Glutose) 15 gm Q15M PRN PO DECREASED GLUCOSE; Start 10/19/17 at 18:00 Glucose (Glutose) 22.5 gm Q15M PRN PO DECREASED GLUCOSE; Start 10/19/17 at 18: 00 Dextrose (D50w Syringe) 25 ml Q15M PRN IV DECREASED GLUCOSE; Start 10/19/17 at 18:00 Dextrose (D50w Syringe) 50 ml Q15M PRN IV DECREASED GLUCOSE; Start 10/19/17 at 18:00 Glucagon (Glucagen) 1 mg Q15M PRN IM DECREASED GLUCOSE; Start 10/19/17 at 18: 00 Glucose (Glutose) 15 gm Q15M PRN BUCCAL DECREASED GLUCOSE; Start 10/19/17 at 18:00 IV Flush (NS 10 ml) 10 ml PRN PRN IV IV PROTOCOL; Start 10/22/17 at 19:00 Docusate Sodium (Colace Liquid Cup) 100 mg BID GTB Last administered on 21:32; Admin Dose 100 MG; Start 10/24/17 at 21:00 Enoxaparin Sodium (Lovenox) 40 mg DAILY SC Last administered on 11/16/17 09: 36; Admin Dose 40 MG; Start 11/04/17 at 09:00 Lansoprazole (Prevacid) 30 mg BID@ GTB Last administered on 11/17/17 06: 35; Admin Dose 30 MG; Start 11/04/17 at 18:00 LEXII LADD MD Nov 17, 2017 12:44
[2017-11-17] MEDS: EUCERIN 113 GM CR TOP SCH ×2 (12:56→21:00)
[2017-11-17] MEDS: DOCUSATE SODIUM 10 MG/ML (10ML CUP) GTB SCH ×2 (12:56→21:00)
[2017-11-17] MEDS: TRIAMCINOLONE ACET 0.1% 15 GM OINT TOP SCH ×2 (12:56→21:00)
[2017-11-17] MEDS: ENOXAPARIN 40 MG/0.4 ML SYG SC SCH (12:58)
[2017-11-17] MEDS ORDERED: LORAZEPAM 1 MG TAB PO ONE (13:00)
[2017-11-18] VITALS (9 sets, daily range): BP systolic 132–163; BP diastolic 82–83; PULSE 93–114; RESP 22–24
[2017-11-18] MEDS: LANSOPRAZOLE 30 MG CAP GTB SCH ×2 (06:45→17:30)
[2017-11-18 08:21] LABS: CALCIUM 9.6 mg/dl (8.4-10.2); CREATININE 0.79 mg/dl (0.61-1.24); MAGNESIUM 1.8 mg/dl (1.7-2.5)
[2017-11-18] MEDS: DOCUSATE SODIUM 10 MG/ML (10ML CUP) GTB SCH ×2 (08:38→21:20)
[2017-11-18] MEDS: EUCERIN 113 GM CR TOP SCH ×2 (08:38→21:22)
[2017-11-18] MEDS: TRIAMCINOLONE ACET 0.1% 15 GM OINT TOP SCH ×2 (08:38→21:22)
[2017-11-18] MEDS: ENOXAPARIN 40 MG/0.4 ML SYG SC SCH (09:11)
--- NOTE | 2017-11-18 11:50 | CONS ---
Date/Time of Note Date/Time of Note DATE: 11/18/17 TIME: 11:48 Assessment/Plan Assessment/Plan Additional Assessment/Plan Assessment and recommendations; 1. Patient admitted for respiratory failure due to severe hypercapnia from underlying morbid obesity, status post tracheostomy and G-tube placement. Patient has been weaned down to T-piece now. 2. Likely underlying sleep apnea. Continue current treatment. Patient awaiting discharge to a long term facility. Consultation Date/Type/Reason Admit Date/Time Oct 14, 2017 at 20:55 Type of Consultation: Pulmonary/CCM 24 HR Interval Summary Free Text/Dictation Patient's condition is stable. Remains awake and alert. General exam; middle-aged male, morbidly obese, on T piece via tracheostomy. Currently in no distress. Exam/Review of Systems Vital Signs Vitals Vital Signs Date Time Temp Pulse Resp B/P Pulse Ox O2 Delivery O2 Flow Rate FiO2 11/18/17 08:34 106 11/18/17 08:00 99.4 24 132/83 91 11/18/17 08:00 Trach Collar 11/18/17 05:40 5.0 28 Exam HEENT exam; supple neck, JVD difficult to see because of short neck. No neck masses. Tracheostomy placed. Patient has fair dentition. Chest exam; diminished breath sounds throughout. S1-S2 audible, no murmurs. Regular rhythm. Abdomen exam; grossly protuberant. G-tube in place. Bowel sounds audible. Extremity exam; 2+ edema. With chronic lower extremity skin changes. EYEGLASS CUTTER exam; no focal motor deficit. Results Result Diagram: 11/16/17 0610 11/18/17 0703 Results 24 hrs Laboratory Tests Test 11/18/17 07:03 Sodium Level 137 Potassium Level 3.0 L Chloride Level 88 L Carbon Dioxide Level 38 H Anion Gap 14 Blood Urea Nitrogen 11 Creatinine 0.79 Glucose Level 112 Calcium Level 9.6 Magnesium Level 1.8 Medications Medications Current Medications Ondansetron HCl (Zofran Inj) 4 mg Q6H PRN IV NAUSEA AND/OR VOMITING Last administered on 11/02/17t 13:46; Admin Dose 4 MG; Start 10/14/17 at 21:30 Nitroglycerin (Nitroglycerin (Sl Tab) 0.4 Mg) 1 tab Q5M PRN SL CHEST PAIN; Start 10/14/17 at 21:30 Acetaminophen (Tylenol Tab) 650 mg Q6H PRN PO PAIN LEVEL 1-3 OR FEVER Last administered on 11/13/17 05:44; Admin Dose 650 MG; Start 10/14/17 at 21:30 Multi-Ingredient Ointment (Eucerin Cream) 1 applic BID TOP Last administered on 11/18/17 08:38; Admin Dose 1 APPLIC; Start 10/16/17 at 09:00 Triamcinolone Acetonide (Kenalog 0.1% Oint) 1 applic BID TOP Last administered on 11/18/17 08:38; Admin Dose 1 APPLIC; Start 10/16/17 at 14:00 Miscellaneous Information 1 ea NOTE XX ; Start 10/19/17 at 18:00 Glucose (Glutose) 15 gm Q15M PRN PO DECREASED GLUCOSE; Start 10/19/17 at 18:00 Glucose (Glutose) 22.5 gm Q15M PRN PO DECREASED GLUCOSE; Start 10/19/17 at 18: 00 Dextrose (D50w Syringe) 25 ml Q15M PRN IV DECREASED GLUCOSE; Start 10/19/17 at 18:00 Dextrose (D50w Syringe) 50 ml Q15M PRN IV DECREASED GLUCOSE; Start 10/19/17 at 18:00 Glucagon (Glucagen) 1 mg Q15M PRN IM DECREASED GLUCOSE; Start 10/19/17 at 18: 00 Glucose (Glutose) 15 gm Q15M PRN BUCCAL DECREASED GLUCOSE; Start 10/19/17 at 18:00 IV Flush (NS 10 ml) 10 ml PRN PRN IV IV PROTOCOL; Start 10/22/17 at 19:00 Docusate Sodium (Colace Liquid Cup) 100 mg BID GTB Last administered on 12:56; Admin Dose 100 MG; Start 10/24/17 at 21:00 Enoxaparin Sodium (Lovenox) 40 mg DAILY SC Last administered on 11/18/17 09: 11; Admin Dose 40 MG; Start 11/04/17 at 09:00 Lansoprazole (Prevacid) 30 mg BID@ GTB Last administered on 11/18/17 06: 45; Admin Dose 30 MG; Start 11/04/17 at 18:00 GABRIEL MALDONADO Nov 18, 2017 11:50
--- NOTE | 2017-11-18 12:30 | PN ---
Date/Time of Note Date/Time of Note DATE: 11/18/17 TIME: 12:25 Assessment/Plan VTE Prophylaxis VTE Prophylaxis Intervention: other (eliquis) Lines/Catheters IV Catheter Type (from Nrsg): PICC Line Central line still needed: Yes Urinary Cath still in place: Yes Reason Cath still needed: other (indicate) Assessment/Plan Assessment/Plan 47-year-old morbidly obese male originally admitted for shortness of breath and bilateral lower extremity swelling now managed as follows. Patient has had a prolonged hospitalization stay.: Acute on chronic hypercapnic respiratory failure/failure to wean status post trach now on T piece Chronic heart failure with preserved ejection fraction Likely obstructive sleep apnea/obesity hypoventilation syndrome Status post PEG tube placement on PEG feeds, now allowed small purees for oral gratification Gastric ulcer on BID PPI Hypokalemia S/p Staph respiratory infection S/p Staph/enterococcus UTI Morbid obesity DVT with concerns for possible PE Hx of psoriasis PLAN: replace lytes chlorhexidine mouthwash and steroid cream for hair Eliquis at 5mg BID as patient has been on Lovenox continue supportive care placement pending Subjective 24 Hr Interval Summary Free Text/Dictation doing well requesting something for tooth ache and scalp psoriasis Exam/Review of Systems Vital Signs Vitals Vital Signs Date Time Temp Pulse Resp B/P Pulse Ox O2 Delivery O2 Flow Rate FiO2 11/18/17 12:00 98.7 111 22 137/82 94 11/18/17 08:00 Trach Collar 11/18/17 05:40 5.0 28 Exam Constitutional: alert, obese, oriented, No distress Psych: nl mood/affect Head: normocephalic Eyes: PERRL Neck: other (trach to tpiece) Respiratory: diminished breath sounds Cardiovascular: regular rate and rhythm Gastrointestinal: bowel sounds, non-tender, other (PEG), soft Neurological: lethargic, nl mental status Skin: rash or lesions Results Result Diagram: 11/16/17 0610 11/18/17 0703 Results 24 hrs Laboratory Tests Test 11/18/17 07:03 Sodium Level 137 Potassium Level 3.0 L Chloride Level 88 L Carbon Dioxide Level 38 H Anion Gap 14 Blood Urea Nitrogen 11 Creatinine 0.79 Glucose Level 112 Calcium Level 9.6 Magnesium Level 1.8 Medications Medications Current Medications Ondansetron HCl (Zofran Inj) 4 mg Q6H PRN IV NAUSEA AND/OR VOMITING Last administered on 11/02/17 13:46; Admin Dose 4 MG; Start 10/14/17 at 21:30 Nitroglycerin (Nitroglycerin (Sl Tab) 0.4 Mg) 1 tab Q5M PRN SL CHEST PAIN; Start 10/14/17 at 21:30 Acetaminophen (Tylenol Tab) 650 mg Q6H PRN PO PAIN LEVEL 1-3 OR FEVER Last administered on 11/13/17 05:44; Admin Dose 650 MG; Start 10/14/17 at 21:30 Multi-Ingredient Ointment (Eucerin Cream) 1 applic BID TOP Last administered on 11/18/17 08:38; Admin Dose 1 APPLIC; Start 10/16/17 at 09:00 Triamcinolone Acetonide (Kenalog 0.1% Oint) 1 applic BID TOP Last administered on 11/18/17 08:38; Admin Dose 1 APPLIC; Start 10/16/17 at 14:00 Miscellaneous Information 1 ea NOTE XX ; Start 10/19/17 at 18:00 Glucose (Glutose) 15 gm Q15M PRN PO DECREASED GLUCOSE; Start 10/19/17 at 18:00 Glucose (Glutose) 22.5 gm Q15M PRN PO DECREASED GLUCOSE; Start 10/19/17 at 18: 00 Dextrose (D50w Syringe) 25 ml Q15M PRN IV DECREASED GLUCOSE; Start 10/19/17 at 18:00 Dextrose (D50w Syringe) 50 ml Q15M PRN IV DECREASED GLUCOSE; Start 10/19/17 at 18:00 Glucagon (Glucagen) 1 mg Q15M PRN IM DECREASED GLUCOSE; Start 10/19/17 at 18: 00 Glucose (Glutose) 15 gm Q15M PRN BUCCAL DECREASED GLUCOSE; Start 10/19/17 at 18:00 IV Flush (NS 10 ml) 10 ml PRN PRN IV IV PROTOCOL; Start 10/22/17 at 19:00 Docusate Sodium (Colace Liquid Cup) 100 mg BID GTB Last administered on 12:56; Admin Dose 100 MG; Start 10/24/17 at 21:00 Enoxaparin Sodium (Lovenox) 40 mg DAILY SC Last administered on 11/18/17 09: 11; Admin Dose 40 MG; Start 11/04/17 at 09:00 Lansoprazole (Prevacid) 30 mg BID@18 GTB Last administered on 11/18/17t 06: 45; Admin Dose 30 MG; Start 11/04/17 at 18:00 BRITTANY CHA Nov 18, 2017 12:30
[2017-11-18] MEDS: POTASSIUM CHLORIDE 250 ML IVPB SCH ×2 (14:40→18:25)
[2017-11-18] MEDS: APIXABAN 5 MG TABLET PO SCH (21:20)
[2017-11-18] MEDS: TRIAMCINOLONE ACET 0.1% 60 ML LOT TOP SCH (21:21)
[2017-11-18] MEDS: CHLORHEXIDINE GLUCONATE 15 ML UD CUP MT SCH (21:22)
[2017-11-19] VITALS (11 sets, daily range): BP systolic 111–144; BP diastolic 69–90; PULSE 95–109; RESP 18–20
[2017-11-19] MEDS: LANSOPRAZOLE 30 MG CAP GTB SCH ×2 (06:41→18:05)
[2017-11-19] MEDS: DOCUSATE SODIUM 10 MG/ML (10ML CUP) GTB SCH ×3 (09:00→20:36)
--- NOTE | 2017-11-19 09:20 | PN ---
Date/Time of Note Date/Time of Note DATE: 11/19/17 TIME: :18 Assessment/Plan Lines/Catheters IV Catheter Type (from Nrs): PICC Line Urinary Cath still in place: Yes Exam/Review of Systems Vital Signs Vitals Vital Signs Date Time Temp Pulse Resp B/P Pulse Ox O2 Delivery O2 Flow Rate FiO2 11/19/17 08:02 96 5.0 28 11/19/17 07:53 98.7 101 20 141/90 11/18/17 16:43 Trach Collar Intake and Output 11/18/17 11/18/17 11/19/17 15:00 23:00 07:00 Intake Total 200 ml 1220 ml Output Total 2000 ml Balance 200 ml -780 ml Results Result Diagram: 11/16/17 0610 11/18/17 0703 Medications Medications Current Medications Ondansetron HCl (Zofran Inj) 4 mg Q6H PRN IV NAUSEA AND/OR VOMITING Last administered on 11/02/17 13:46; Admin Dose 4 MG; Start 10/14/17 at 21:30 Nitroglycerin (Nitroglycerin (Sl Tab) 0.4 Mg) 1 tab Q5M PRN SL CHEST PAIN; Start 10/14/17 at 21:30 Acetaminophen (Tylenol Tab) 650 mg Q6H PRN PO PAIN LEVEL 1-3 OR FEVER Last administered on 11/13/17 05:44; Admin Dose 650 MG; Start 10/14/17 at 21:30 Multi-Ingredient Ointment (Eucerin Cream) 1 applic BID TOP Last administered on 11/18/17 21:22; Admin Dose 1 APPLIC; Start 10/16/17 at 09:00 Triamcinolone Acetonide (Kenalog 0.1% Oint) 1 applic BID TOP Last administered on 11/18/17 21:22; Admin Dose 1 APPLIC; Start 10/16/17 at 14:00 Miscellaneous Information 1 ea NOTE XX ; Start 10/19/17 at 18:00 Glucose (Glutose) 15 gm Q15M PRN PO DECREASED GLUCOSE; Start 10/19/17 at 18:00 Glucose (Glutose) 22.5 gm Q15M PRN PO DECREASED GLUCOSE; Start 10/19/17 at 18: 00 Dextrose (D50w Syringe) 25 ml Q15M PRN IV DECREASED GLUCOSE; Start 10/19/17 at 18:00 Dextrose (D50w Syringe) 50 ml Q15M PRN IV DECREASED GLUCOSE; Start 10/19/17 at 18:00 Glucagon (Glucagen) 1 mg Q15M PRN IM DECREASED GLUCOSE; Start 10/19/17 at 18: 00 Glucose (Glutose) 15 gm Q15M PRN BUCCAL DECREASED GLUCOSE; Start 10/19/17 at 18:00 IV Flush (NS 10 ml) 10 ml PRN PRN IV IV PROTOCOL; Start 10/22/17 at 19:00 Docusate Sodium (Colace Liquid Cup) 100 mg BID GTB Last administered on 21:20; Admin Dose 100 MG; Start 10/24/17 at 21:00 Lansoprazole (Prevacid) 30 mg BID@ GTB Last administered on 11/19/17 06: 41; Admin Dose 30 MG; Start 11/04/17 at 18:00 Apixaban (Eliquis) 5 mg BID PO Last administered on 11/18/17 21:20; Admin Dose 5 MG; Start 11/18/17 at 21:00 Chlorhexidine Gluconate (Peridex) 15 ml BID MT Last administered on 11/18/17 21:22; Admin Dose 15 ML; Start 11/18/17 at 21:00 Triamcinolone (Kenalog 0.1% Lotion) 1 applic BID TOP Last administered on 11/18 21:21; Admin Dose 1 APPLIC; Start 11/18/17 at 21:30 BRITTANY CHA Nov 19, 2017 09:20
[2017-11-19] MEDS: CHLORHEXIDINE GLUCONATE 15 ML UD CUP MT SCH ×2 (09:24→20:18)
[2017-11-19] MEDS: TRIAMCINOLONE ACET 0.1% 15 GM OINT TOP SCH ×2 (09:24→20:19)
[2017-11-19] MEDS: APIXABAN 5 MG TABLET PO SCH ×2 (09:24→20:18)
[2017-11-19] MEDS: EUCERIN 113 GM CR TOP SCH ×2 (09:25→20:19)
[2017-11-19] MEDS: TRIAMCINOLONE ACET 0.1% 60 ML LOT TOP SCH ×2 (09:27→20:19)
--- NOTE | 2017-11-19 11:13 | CONS ---
Date/Time of Note Date/Time of Note DATE: 11/19/17 TIME: 11:10 Assessment/Plan Assessment/Plan Additional Assessment/Plan Assessment and recommendations; 1. Patient admitted with hypercapnic respiratory failure due to underlying morbid obesity with obesity/hypoventilation syndrome. Status post tracheostomy. Patient doing well on T-piece. Continue current treatment. Obtain follow-up ABG. Further recommendations to be made once ABG is obtained. Consultation Date/Type/Reason Admit Date/Time Oct 14, 2017 at 20:55 Type of Consultation: Pulmonary/CCM 24 HR Interval Summary Free Text/Dictation Patient's condition is stable. Patient however still appears somnolent at times. General exam; young male, on T piece via tracheostomy, morbidly obese, awake, currently in no distress. Exam/Review of Systems Vital Signs Vitals Vital Signs Date Time Temp Pulse Resp B/P Pulse Ox O2 Delivery O2 Flow Rate FiO2 11/19/17 08:15 95 11/19/17 08:02 96 5.0 28 11/19/17 07:53 98.7 20 141/90 11/18/17 16:43 Trach Collar Intake and Output 11/18/17 11/18/17 11/19/17 15:00 23:00 07:00 Intake Total 200 ml 1220 ml Output Total 2000 ml Balance 200 ml -780 ml Exam H ENT exam; supple neck, JVD difficult to see because of short neck. No thyromegaly. No neck masses. Tracheostomy in place. Insertion site is clean. Patient has fair dentition. Chest exam; diminished breath sounds throughout. No added sounds. S1-S2 audible, no murmurs. Regular rhythm. Abdomen exam; soft, grossly protuberant. Organomegaly difficult to assess. G- tube in place. Bowel sounds audible. Extremity exam; 1+ edema in lower extremities. With chronic lower extremity skin changes. [employer] exam; no focal deficit. Results Result Diagram: 11/16/17 0610 11/18/17 0703 Medications Medications Current Medications Ondansetron HCl (Zofran Inj) 4 mg Q6H PRN IV NAUSEA AND/OR VOMITING Last administered on 11/02/17t 13:46; Admin Dose 4 MG; Start 10/14/17 at 21:30 Nitroglycerin (Nitroglycerin (Sl Tab) 0.4 Mg) 1 tab Q5M PRN SL CHEST PAIN; Start 10/14/17 at 21:30 Acetaminophen (Tylenol Tab) 650 mg Q6H PRN PO PAIN LEVEL 1-3 OR FEVER Last administered on 11/13/17 05:44; Admin Dose 650 MG; Start 10/14/17 at 21:30 Multi-Ingredient Ointment (Eucerin Cream) 1 applic BID TOP Last administered on 11/19/17 09:25; Admin Dose 1 APPLIC; Start 10/16/17 at 09:00 Triamcinolone Acetonide (Kenalog 0.1% Oint) 1 applic BID TOP Last administered on 11/19/17 09:24; Admin Dose 1 APPLIC; Start 10/16/17 at 14:00 Miscellaneous Information 1 ea NOTE XX ; Start 10/19/17 at 18:00 Glucose (Glutose) 15 gm Q15M PRN PO DECREASED GLUCOSE; Start 10/19/17 at 18:00 Glucose (Glutose) 22.5 gm Q15M PRN PO DECREASED GLUCOSE; Start 10/19/17 at 18: 00 Dextrose (D50w Syringe) 25 ml Q15M PRN IV DECREASED GLUCOSE; Start 10/19/17 at 18:00 Dextrose (D50w Syringe) 50 ml Q15M PRN IV DECREASED GLUCOSE; Start 10/19/17 at 18:00 Glucagon (Glucagen) 1 mg Q15M PRN IM DECREASED GLUCOSE; Start 10/19/17 at 18: 00 Glucose (Glutose) 15 gm Q15M PRN BUCCAL DECREASED GLUCOSE; Start 10/19/17 at 18:00 IV Flush (NS 10 ml) 10 ml PRN PRN IV IV PROTOCOL; Start 10/22/17 at 19:00 Docusate Sodium (Colace Liquid Cup) 100 mg BID GTB Last administered on 21:20; Admin Dose 100 MG; Start 10/24/17 at 21:00 Lansoprazole (Prevacid) 30 mg BID@18 GTB Last administered on 11/19/17 06: 41; Admin Dose 30 MG; Start 11/04/17 at 18:00 Apixaban (Eliquis) 5 mg BID PO Last administered on 11/19/17 09:24; Admin Dose 5 MG; Start 11/18/17 at 21:00 Chlorhexidine Gluconate (Peridex) 15 ml BID MT Last administered on 11/19/17 09:24; Admin Dose 15 ML; Start 11/18/17 at 21:00 Triamcinolone (Kenalog 0.1% Lotion) 1 applic BID TOP Last administered on 11/19 09:27; Admin Dose 1 APPLIC; Start 11/18/17 at 21:30 GABRIEL MALDONADO Nov 19, 2017 11:13
[2017-11-19 15:44] LABS: BASOPHIL # 0.1 10^3/ul (0.0-0.1); BASOPHILS % 0.5 % (0.0-2.0); EOSINOPHILS # 0.6 10^3/ul (0.0-0.5); HEMATOCRIT 37.2 % (42.0-52.0); HEMOGLOBIN 11.5 g/dl (14.0-18.0); LYMPHOCYTES # 2.6 10^3/ul (0.8-2.9); LYMPHOCYTES % 24.7 % (15.0-51.0); MEAN CORPUSCULAR HEMOGLOBIN 24.8 pg (29.0-33.0); MEAN CORPUSCULAR HGB CONC 30.9 g/dl (32.0-37.0); MEAN CORPUSCULAR VOLUME 80.3 fl (82.0-101.0); MEAN PLATELET VOLUME 11.9 fl (7.4-10.4); MONOCYTE # 1.3 10^3/ul (0.3-0.9); MONOCYTES % 12.2 % (0.0-11.0); NEUTROPHIL # 5.8 10^3/ul (1.6-7.5); NEUTROPHILS % 55.8 % (39.0-77.0); POSITIVE DIFF @See below; RED BLOOD COUNT 4.63 10^6/ul (4.70-6.10); RED CELL DISTRIBUTION WIDTH 17.8 % (11.5-14.5); WHITE BLOOD COUNT 10.3 10^3/ul (4.8-10.8)
[2017-11-19 15:47] LABS: PLATELET COUNT 224 10^3/UL (140-415)
[2017-11-19 15:59] LABS: CALCIUM 9.2 mg/dl (8.4-10.2); CREATININE 0.72 mg/dl (0.61-1.24); MAGNESIUM 1.8 mg/dl (1.7-2.5); POTASSIUM 3.2 mmol/L (3.5-5.1)
[2017-11-20] VITALS (12 sets, daily range): BP systolic 115–150; BP diastolic 67–85; PULSE 99–114; RESP 19–20
[2017-11-20] MEDS ORDERED: POTASSIUM CHLORIDE 30 MEQ in SOD CHLORIDE 0.9% 150 ML IVPB ONE ×2
[2017-11-20] MEDS: LANSOPRAZOLE 30 MG CAP GTB SCH ×2 (05:51→18:31)
[2017-11-20 07:49] LABS: ABNORMAL IP MESSAGE 1; BASOPHIL # 0.1 10^3/ul (0.0-0.1); BASOPHILS % 0.6 % (0.0-2.0); EOSINOPHILS # 0.6 10^3/ul (0.0-0.5); EOSINOPHILS % 4.8 % (0.0-7.0); HEMATOCRIT 37.5 % (42.0-52.0); HEMOGLOBIN 11.6 g/dl (14.0-18.0); LYMPHOCYTES # 2.9 10^3/ul (0.8-2.9); LYMPHOCYTES % 23.4 % (15.0-51.0); MEAN CORPUSCULAR HEMOGLOBIN 24.9 pg (29.0-33.0); MEAN CORPUSCULAR HGB CONC 30.9 g/dl (32.0-37.0); MEAN CORPUSCULAR VOLUME 80.6 fl (82.0-101.0); MEAN PLATELET VOLUME 11.2 fl (7.4-10.4); MONOCYTE # 1.6 10^3/ul (0.3-0.9); MONOCYTES % 13.2 % (0.0-11.0); NEUTROPHIL # 7.1 10^3/ul (1.6-7.5); PLATELET COUNT 282 10^3/UL (140-415); POSITIVE DIFF @See below; RED BLOOD COUNT 4.65 10^6/ul (4.70-6.10); RED CELL DISTRIBUTION WIDTH 18.8 % (11.5-14.5); WHITE BLOOD COUNT 12.4 10^3/ul (4.8-10.8)
[2017-11-20 08:12] LABS: CALCIUM 9.1 mg/dl (8.4-10.2); CREATININE 0.64 mg/dl (0.61-1.24); POTASSIUM 4.1 mmol/L (3.5-5.1)
[2017-11-20] MEDS: DOCUSATE SODIUM 10 MG/ML (10ML CUP) GTB SCH ×2 (09:00→22:41)
[2017-11-20] MEDS: TRIAMCINOLONE ACET 0.1% 15 GM OINT TOP SCH ×2 (09:35→21:00)
[2017-11-20] MEDS: EUCERIN 113 GM CR TOP SCH ×2 (09:35→21:00)
[2017-11-20] MEDS: CHLORHEXIDINE GLUCONATE 15 ML UD CUP MT SCH ×2 (09:35→22:22)
[2017-11-20] MEDS: APIXABAN 5 MG TABLET GTB SCH ×2 (09:35→22:22)
[2017-11-20] MEDS: TRIAMCINOLONE ACET 0.1% 60 ML LOT TOP SCH ×2 (09:36→22:41)
--- NOTE | 2017-11-20 09:39 | PN ---
Date/Time of Note Date/Time of Note DATE: 11/20/17 TIME: 09:31 Assessment/Plan VTE Prophylaxis VTE Prophylaxis Intervention: other (eliquis) Lines/Catheters IV Catheter Type (from Nrsg): PICC Line Central line still needed: Yes Urinary Cath still in place: Yes Reason Cath still needed: other (indicate) (pt still very debiolitated and already has skin changes around genitals) Assessment/Plan Assessment/Plan 47-year-old morbidly obese male originally admitted for shortness of breath and bilateral lower extremity swelling now managed as follows. Patient has had a prolonged hospitalization stay.: Acute on chronic hypercapnic respiratory failure/failure to wean status post trach now on T piece Chronic heart failure with preserved ejection fraction Likely obstructive sleep apnea/obesity hypoventilation syndrome Status post PEG tube placement on PEG feeds, now allowed small purees for oral gratification Gastric ulcer on BID PPI Hypokalemia: repleted S/p Staph respiratory infection S/p Staph/enterococcus UTI Morbid obesity DVT with concerns for possible PE Hx of psoriasis PLAN: Continue all current meds and mgt , continue in house PT continue supportive care placement pending, possibly today per CM Subjective 24 Hr Interval Summary Free Text/Dictation no new issues, patient wants to be discharged to where he can get more aggressive PT Exam/Review of Systems Vital Signs Vitals Vital Signs Date Time Temp Pulse Resp B/P Pulse Ox O2 Delivery O2 Flow Rate FiO2 11/20/17 08:10 107 11/20/17 08:00 98.5 20 115/69 95 11/20/17 03:15 5.0 28 11/20/17 00:00 Trach Collar Intake and Output 11/19/17 11/19/17 11/20/17 15:00 23:00 07:00 Intake Total 1820 ml 1570 ml Output Total 1800 ml 1050 ml Balance 20 ml 520 ml Exam Constitutional: alert, obese, oriented, No distress Psych: nl mood/affect Head: normocephalic Eyes: PERRL Neck: other (trach to tpiece) Respiratory: diminished breath sounds Cardiovascular: regular rate and rhythm Gastrointestinal: bowel sounds, non-tender, other (PEG), soft Neurological: lethargic, nl mental status Skin: rash or lesions Results Result Diagram: 11/20/17 0653 11/20/17 0653 Results 24 hrs Laboratory Tests Test 11/19/17 15:18 11/20/17 06:53 White Blood Count 10.3 12.4 #H Red Blood Count 4.63 L 4.65 L Hemoglobin 11.5 L 11.6 L Hematocrit 37.2 L 37.5 L Mean Corpuscular Volume 80.3 L 80.6 L Mean Corpuscular Hemoglobin 24.8 L 24.9 L Mean Corpuscular Hemoglobin Concent 30.9 L 30.9 L Red Cell Distribution Width 17.8 H 18.8 H Platelet Count 224 # 282 # Mean Platelet Volume 11.9 H 11.2 H Neutrophils % 55.8 57.0 Lymphocytes % 24.7 23.4 Monocytes % 12.2 H 13.2 H Eosinophils % 6.0 4.8 Basophils % 0.5 0.6 Nucleated Red Blood Cells % 0.0 0.0 Neutrophils # 5.8 7.1 Lymphocytes # 2.6 2.9 Monocytes # 1.3 H 1.6 H Eosinophils # 0.6 H 0.6 H Basophils # 0.1 0.1 Nucleated Red Blood Cells # 0.0 0.0 Sodium Level 137 136 Potassium Level 3.2 L 4.1 Chloride Level 91 L 92 L Carbon Dioxide Level 36 H 31 Anion Gap 13 17 H Blood Urea Nitrogen 8 6 L Creatinine 0.72 0.64 Glucose Level 118 101 Calcium Level 9.2 9.1 Magnesium Level 1.8 Medications Medications Current Medications Ondansetron HCl (Zofran Inj) 4 mg Q6H PRN IV NAUSEA AND/OR VOMITING Last administered on 11/02/17 13:46; Admin Dose 4 MG; Start 10/14/17 at 21:30 Nitroglycerin (Nitroglycerin (Sl Tab) 0.4 Mg) 1 tab Q5M PRN SL CHEST PAIN; Start 10/14/17 at 21:30 Acetaminophen (Tylenol Tab) 650 mg Q6H PRN PO PAIN LEVEL 1-3 OR FEVER Last administered on 11/13/17 05:44; Admin Dose 650 MG; Start 10/14/17 at 21:30 Multi-Ingredient Ointment (Eucerin Cream) 1 applic BID TOP Last administered on 11/19/17 20:19; Admin Dose 1 APPLIC; Start 10/16/17 at 09:00 Triamcinolone Acetonide (Kenalog 0.1% Oint) 1 applic BID TOP Last administered on 11/19/17 20:19; Admin Dose 1 APPLIC; Start 10/16/17 at 14:00 Miscellaneous Information 1 ea NOTE XX ; Start 10/19/17 at 18:00 Glucose (Glutose) 15 gm Q15M PRN PO DECREASED GLUCOSE; Start 10/19/17 at 18:00 Glucose (Glutose) 22.5 gm Q15M PRN PO DECREASED GLUCOSE; Start 10/19/17 at 18: 00 Dextrose (D50w Syringe) 25 ml Q15M PRN IV DECREASED GLUCOSE; Start 10/19/17 at 18:00 Dextrose (D50w Syringe) 50 ml Q15M PRN IV DECREASED GLUCOSE; Start 10/19/17 at 18:00 Glucagon (Glucagen) 1 mg Q15M PRN IM DECREASED GLUCOSE; Start 10/19/17 at 18: 00 Glucose (Glutose) 15 gm Q15M PRN BUCCAL DECREASED GLUCOSE; Start 10/19/17 at 18:00 IV Flush (NS 10 ml) 10 ml PRN PRN IV IV PROTOCOL; Start 10/22/17 at 19:00 Docusate Sodium (Colace Liquid Cup) 100 mg BID GTB Last administered on 21:20; Admin Dose 100 MG; Start 10/24/17 at 21:00 Lansoprazole (Prevacid) 30 mg BID@,18 GTB Last administered on 11/20/17 05: 51; Admin Dose 30 MG; Start 11/04/17 at 18:00 Chlorhexidine Gluconate (Peridex) 15 ml BID MT Last administered on 11/19/17 20:18; Admin Dose 15 ML; Start 11/18/17 at 21:00 Triamcinolone (Kenalog 0.1% Lotion) 1 applic BID TOP Last administered on 11/19 20:19; Admin Dose 1 APPLIC; Start 11/18/17 at 21:30 Apixaban (Eliquis) 5 mg BID GTB ; Start 11/20/17 at 09:00 BRITTANY CHA Nov 20, 2017 09:39
--- NOTE | 2017-11-20 12:12 | CONS ---
Date/Time of Note Date/Time of Note DATE: 11/20/17 TIME: 12:11 Consult Date/Type/Reason Admit Date/Time Oct 14, 2017 at 20:55 Type of Consultation: Pulmonary/CCM Subjective Remains comfortable on cool aerosol. PMV trials. Objective Vital Signs Date Time Temp Pulse Resp B/P Pulse Ox O2 Delivery O2 Flow Rate FiO2 11/20/17 08:10 107 11/20/17 08:00 98.5 20 115/69 95 11/20/17 03:15 5.0 28 11/20/17 00:00 Trach Collar Intake and Output 11/19/17 11/19/17 11/20/17 15:00 23:00 07:00 Intake Total 1820 ml 1570 ml Output Total 1800 ml 1050 ml Balance 20 ml 520 ml Exam GENERAL: Morbidly obese gentleman comfortable at rest. Trial of CA. VITAL SIGNS: per chart NECK: Supple. No JVD or lymphadenopathy. CARDIAC EXAM: S1, S2. No added sounds or murmurs. CHEST: clear bilaterally, No added sounds, rales or wheezes ABDOMEN: Soft, nontender. No guarding or rebound. EXTREMITIES: No cyanosis, clubbing , NEUROLOGIC: Generalized weakness. No focal deficits. Edema +2 Results/Medications Result Diagram: 11/20/17 0653 11/20/17 0653 Results 24 hrs Laboratory Tests Test 11/19/17 15:18 11/20/17 06:53 White Blood Count 10.3 12.4 #H Red Blood Count 4.63 L 4.65 L Hemoglobin 11.5 L 11.6 L Hematocrit 37.2 L 37.5 L Mean Corpuscular Volume 80.3 L 80.6 L Mean Corpuscular Hemoglobin 24.8 L 24.9 L Mean Corpuscular Hemoglobin Concent 30.9 L 30.9 L Red Cell Distribution Width 17.8 H 18.8 H Platelet Count 224 # 282 # Mean Platelet Volume 11.9 H 11.2 H Neutrophils % 55.8 57.0 Lymphocytes % 24.7 23.4 Monocytes % 12.2 H 13.2 H Eosinophils % 6.0 4.8 Basophils % 0.5 0.6 Nucleated Red Blood Cells % 0.0 0.0 Neutrophils # 5.8 7.1 Lymphocytes # 2.6 2.9 Monocytes # 1.3 H 1.6 H Eosinophils # 0.6 H 0.6 H Basophils # 0.1 0.1 Nucleated Red Blood Cells # 0.0 0.0 Sodium Level 137 136 Potassium Level 3.2 L 4.1 Chloride Level 91 L 92 L Carbon Dioxide Level 36 H 31 Anion Gap 13 17 H Blood Urea Nitrogen 8 6 L Creatinine 0.72 0.64 Glucose Level 118 101 Calcium Level 9.2 9.1 Magnesium Level 1.8 Medications Current Medications Ondansetron HCl (Zofran Inj) 4 mg Q6H PRN IV NAUSEA AND/OR VOMITING Last administered on 11/02/17 13:46; Admin Dose 4 MG; Start 10/14/17 at 21:30 Nitroglycerin (Nitroglycerin (Sl Tab) 0.4 Mg) 1 tab Q5M PRN SL CHEST PAIN; Start 10/14/17 at 21:30 Acetaminophen (Tylenol Tab) 650 mg Q6H PRN PO PAIN LEVEL 1-3 OR FEVER Last administered on 11/13/17 05:44; Admin Dose 650 MG; Start 10/14/17 at 21:30 Multi-Ingredient Ointment (Eucerin Cream) 1 applic BID TOP Last administered on 11/20/17 09:35; Admin Dose 1 APPLIC; Start 10/16/17 at 09:00 Triamcinolone Acetonide (Kenalog 0.1% Oint) 1 applic BID TOP Last administered on 11/20/17 09:35; Admin Dose 1 APPLIC; Start 10/16/17 at 14:00 Miscellaneous Information 1 ea NOTE XX ; Start 10/19/17 at 18:00 Glucose (Glutose) 15 gm Q15M PRN PO DECREASED GLUCOSE; Start 10/19/17 at 18:00 Glucose (Glutose) 22.5 gm Q15M PRN PO DECREASED GLUCOSE; Start 10/19/17 at 18: 00 Dextrose (D50w Syringe) 25 ml Q15M PRN IV DECREASED GLUCOSE; Start 10/19/17 at 18:00 Dextrose (D50w Syringe) 50 ml Q15M PRN IV DECREASED GLUCOSE; Start 10/19/17 at 18:00 Glucagon (Glucagen) 1 mg Q15M PRN IM DECREASED GLUCOSE; Start 10/19/17 at 18: 00 Glucose (Glutose) 15 gm Q15M PRN BUCCAL DECREASED GLUCOSE; Start 10/19/17 at 18:00 IV Flush (NS 10 ml) 10 ml PRN PRN IV IV PROTOCOL; Start 10/22/17 at 19:00 Docusate Sodium (Colace Liquid Cup) 100 mg BID GTB Last administered on 21:20; Admin Dose 100 MG; Start 10/24/17 at 21:00 Lansoprazole (Prevacid) 30 mg BID@06,18 GTB Last administered on 11/20/17 05: 51; Admin Dose 30 MG; Start 11/04/17 at 18:00 Chlorhexidine Gluconate (Peridex) 15 ml BID MT Last administered on 11/20/17 09:35; Admin Dose 15 ML; Start 11/18/17 at 21:00 Triamcinolone (Kenalog 0.1% Lotion) 1 applic BID TOP Last administered on 11/20 09:36; Admin Dose 1 APPLIC; Start 11/18/17 at 21:30 Apixaban (Eliquis) 5 mg BID GTB Last administered on 11/20/17 09:35; Admin Dose 5 MG; Start 11/20/17 at 09:00 Assessment/Plan Chief Complaint/Hosp Course IMP: 1. Acute on chronic hypercapnic respiratory failure/Failure to wean--s/p trach 2. HFpEF 3. Likely JANA/OHS 4. Possible thromboembolic disease 5. HyperNa+ PLAN: 1. Trial cool aerosol and PMV, nocturnal vent. 2. Bronchodilators/trach care 3. Physical therapy if tolerated 4. Sputum studies. DC planning Problems: BRIGETTE CODY MD, [facility] Nov 20, 2017 12:12
[2017-11-21] VITALS (12 sets, daily range): BP systolic 133–197; BP diastolic 72–98; PULSE 99–120; RESP 18–19
[2017-11-21] MEDS: LANSOPRAZOLE 30 MG CAP GTB SCH ×2 (06:36→18:00)
[2017-11-21 07:24] LABS: BASOPHILS % 0.3 % (0.0-2.0); EOSINOPHILS # 0.3 10^3/ul (0.0-0.5); HEMATOCRIT 34.4 % (42.0-52.0); HEMOGLOBIN 10.4 g/dl (14.0-18.0); LYMPHOCYTES # 2.5 10^3/ul (0.8-2.9); LYMPHOCYTES % 24.1 % (15.0-51.0); MEAN CORPUSCULAR HEMOGLOBIN 24.6 pg (29.0-33.0); MEAN CORPUSCULAR HGB CONC 30.2 g/dl (32.0-37.0); MEAN CORPUSCULAR VOLUME 81.5 fl (82.0-101.0); MEAN PLATELET VOLUME 11.1 fl (7.4-10.4); MONOCYTE # 1.2 10^3/ul (0.3-0.9); MONOCYTES % 11.5 % (0.0-11.0); NEUTROPHIL # 6.1 10^3/ul (1.6-7.5); NEUTROPHILS % 60.1 % (39.0-77.0); PLATELET COUNT 257 10^3/UL (140-415); RED BLOOD COUNT 4.22 10^6/ul (4.70-6.10); WHITE BLOOD COUNT 10.2 10^3/ul (4.8-10.8)
[2017-11-21 07:53] LABS: CALCIUM 7.7 mg/dl (8.4-10.2); CREATININE 0.58 mg/dl (0.61-1.24)
[2017-11-21] MEDS: DOCUSATE SODIUM 10 MG/ML (10ML CUP) GTB SCH ×2 (08:49→22:08)
[2017-11-21] MEDS: CHLORHEXIDINE GLUCONATE 15 ML UD CUP MT SCH ×2 (08:50→22:08)
[2017-11-21] MEDS: TRIAMCINOLONE ACET 0.1% 60 ML LOT TOP SCH ×2 (08:52→22:09)
[2017-11-21] MEDS: TRIAMCINOLONE ACET 0.1% 15 GM OINT TOP SCH ×2 (08:52→22:10)
[2017-11-21] MEDS: EUCERIN 113 GM CR TOP SCH ×2 (08:52→22:09)
[2017-11-21] MEDS: APIXABAN 5 MG TABLET GTB SCH ×2 (08:56→22:08)
[2017-11-21] MEDS ORDERED: POTASSIUM CHLORIDE 20 MEQ POWDER FOR ORAL SOLN GTB ONE ×2 (12:00→16:00)
--- NOTE | 2017-11-21 12:22 | CONS ---
Date/Time of Note Date/Time of Note DATE: 11/21/17 TIME: 12:19 Assessment/Plan Assessment/Plan Additional Assessment/Plan Assessment and recommendations; 1. Patient admitted with respiratory failure due to hypercapnia due to underlying morbid obesity with likely sleep apnea syndrome. Status post tracheostomy and G-tube placement. 2. Possibly chronic thromboembolic disease. 3. Improving hypernatremia. Next Continue current treatment. Patient requesting G-tube to be removed. Patient also would benefit from transfer to pulmonary rehab center. Consultation Date/Type/Reason Admit Date/Time Oct 14, 2017 at 20:55 Type of Consultation: Pulmonary/CCM 24 HR Interval Summary Free Text/Dictation Patient's condition is continually improving. Currently sitting in a chair by bedside. Able to talk. Denies any shortness of breath, chest pain. General exam; middle-aged male, morbidly obese, awake and alert. Currently in no distress. Exam/Review of Systems Vital Signs Vitals Vital Signs Date Time Temp Pulse Resp B/P Pulse Ox O2 Delivery O2 Flow Rate FiO2 11/21/17 12:02 98.3 98 18 138/90 95 11/21/17 07:30 5.0 28 11/20/17 00:00 Trach Collar Intake and Output 11/20/17 11/20/17 11/21/17 15:00 23:00 07:00 Intake Total 3970 ml 1450 ml Output Total 5900 ml 1600 ml Balance -1930 ml -150 ml Exam HEENT exam; supple neck, JVD difficult to see because of short neck. No neck masses. Pupils are midsize and reactive to light. Pharynx is clear. Patient has fair dentition. Chest exam; diminished but clear breath sounds. S1-S2 audible, no murmurs. Regular rhythm. Abdomen exam; soft, protuberant. G-tube in place. Bowel sounds audible. Extremity exam; chronic appearing lower extremity skin changes. Pulses 1+ bilaterally. BEAD MAKER exam; no focal deficit. Results Result Diagram: 11/21/1762511/21/17 06 Results 24 hrs Laboratory Tests Test 11/21/17 06:26 White Blood Count 10.2 Red Blood Count 4.22 L Hemoglobin 10.4 L Hematocrit 34.4 L Mean Corpuscular Volume 81.5 L Mean Corpuscular Hemoglobin 24.6 L Mean Corpuscular Hemoglobin Concent 30.2 L Red Cell Distribution Width 18.0 H Platelet Count 257 Mean Platelet Volume 11.1 H Neutrophils % 60.1 Lymphocytes % 24.1 Monocytes % 11.5 H Eosinophils % 3.0 Basophils % 0.3 Nucleated Red Blood Cells % 0.0 Neutrophils # 6.1 Lymphocytes # 2.5 Monocytes # 1.2 H Eosinophils # 0.3 Basophils # 0.0 Nucleated Red Blood Cells # 0.0 Sodium Level 138 Potassium Level 3.0 L Chloride Level 98 Carbon Dioxide Level 30 Anion Gap 13 Blood Urea Nitrogen 5 L Creatinine 0.58 L Glucose Level 110 Calcium Level 7.7 L Medications Medications Current Medications Ondansetron HCl (Zofran Inj) 4 mg Q6H PRN IV NAUSEA AND/OR VOMITING Last administered on 11/02/17 13:46; Admin Dose 4 MG; Start 10/14/17 at 21:30 Nitroglycerin (Nitroglycerin (Sl Tab) 0.4 Mg) 1 tab Q5M PRN SL CHEST PAIN; Start 10/14/17 at 21:30 Acetaminophen (Tylenol Tab) 650 mg Q6H PRN PO PAIN LEVEL 1-3 OR FEVER Last administered on 11/13/17 05:44; Admin Dose 650 MG; Start 10/14/17 at 21:30 Multi-Ingredient Ointment (Eucerin Cream) 1 applic BID TOP Last administered on 11/21/17 08:52; Admin Dose 1 APPLIC; Start 10/16/17 at 09:00 Triamcinolone Acetonide (Kenalog 0.1% Oint) 1 applic BID TOP Last administered on 11/21/17 08:52; Admin Dose 1 APPLIC; Start 10/16/17 at 14:00 Miscellaneous Information 1 ea NOTE XX ; Start 10/19/17 at 18:00 Glucose (Glutose) 15 gm Q15M PRN PO DECREASED GLUCOSE; Start 10/19/17 at 18:00 Glucose (Glutose) 22.5 gm Q15M PRN PO DECREASED GLUCOSE; Start 10/19/17 at 18: 00 Dextrose (D50w Syringe) 25 ml Q15M PRN IV DECREASED GLUCOSE; Start 10/19/17 at 18:00 Dextrose (D50w Syringe) 50 ml Q15M PRN IV DECREASED GLUCOSE; Start 10/19/17 at 18:00 Glucagon (Glucagen) 1 mg Q15M PRN IM DECREASED GLUCOSE; Start 10/19/17 at 18: 00 Glucose (Glutose) 15 gm Q15M PRN BUCCAL DECREASED GLUCOSE; Start 10/19/17 at 18:00 IV Flush (NS 10 ml) 10 ml PRN PRN IV IV PROTOCOL; Start 10/22/17 at 19:00 Docusate Sodium (Colace Liquid Cup) 100 mg BID GTB Last administered on 21:20; Admin Dose 100 MG; Start 10/24/17 at 21:00 Lansoprazole (Prevacid) 30 mg BID@ GTB Last administered on 11/21/17 06: 36; Admin Dose 30 MG; Start 11/04/17 at 18:00 Chlorhexidine Gluconate (Peridex) 15 ml BID MT Last administered on 11/21/17 08:50; Admin Dose 15 ML; Start 11/18/17 at 21:00 Triamcinolone (Kenalog 0.1% Lotion) 1 applic BID TOP Last administered on 11/21 08:52; Admin Dose 1 APPLIC; Start 11/18/17 at 21:30 Apixaban (Eliquis) 5 mg BID GTB Last administered on 11/21/17 08:56; Admin Dose 5 MG; Start 11/20/17 at 09:00 Potassium Chloride (Potassium Chloride Pwd/Soln) 40 meq ONCE ONCE GTB ; Start 11/21/17 at 16:00; Stop 11/21/17 at 16:01 GABRIEL MALDONADO Nov 21, 2017 12:22
--- NOTE | 2017-11-21 13:48 | PN ---
Date/Time of Note Date/Time of Note DATE: 11/21/17 TIME: 13:46 Assessment/Plan VTE Prophylaxis VTE Prophylaxis Intervention: other (eliquis) Lines/Catheters IV Catheter Type (from Nrs): PICC Line Central line still needed: Yes Urinary Cath still in place: Yes Reason Cath still needed: other (indicate) Assessment/Plan Assessment/Plan 47-year-old morbidly obese male originally admitted for shortness of breath and bilateral lower extremity swelling now managed as follows. Patient has had a prolonged hospitalization stay.: Acute on chronic hypercapnic respiratory failure/failure to wean status post trach now on T piece Chronic heart failure with preserved ejection fraction Likely obstructive sleep apnea/obesity hypoventilation syndrome Status post PEG tube placement on PEG feeds, now allowed small purees for oral gratification Gastric ulcer on BID PPI Hypokalemia: repleted S/p Staph respiratory infection S/p Staph/enterococcus UTI Morbid obesity DVT with concerns for possible PE Hx of psoriasis PLAN: Continue all current meds and mgt , continue in house PT continue supportive care placement pending, possibly today per CM Subjective 24 Hr Interval Summary Free Text/Dictation Patient was undergoing physical therapy when I reviewed him. Seems to be doing well. No new complaints. Exam/Review of Systems Vital Signs Vitals Vital Signs Date Time Temp Pulse Resp B/P Pulse Ox O2 Delivery O2 Flow Rate FiO2 11/21/17 12:29 120 11/21/17 12:02 98.3 18 138/90 95 11/21/17 07:30 5.0 28 11/20/17 00:00 Trach Collar Intake and Output 11/20/17 11/20/17 11/21/17 15:00 23:00 07:00 Intake Total 3970 ml 1450 ml Output Total 5900 ml 1600 ml Balance -1930 ml -150 ml Exam Constitutional: alert, obese, oriented, No distress Psych: nl mood/affect Head: normocephalic Eyes: PERRL Neck: other (trach to tpiece) Respiratory: diminished breath sounds Cardiovascular: regular rate and rhythm Gastrointestinal: bowel sounds, non-tender, other (PEG), soft Neurological: lethargic, nl mental status Skin: rash or lesions Results Result Diagram: 11/21/17 0626 11/21/17 0626 Results 24 hrs Laboratory Tests Test 11/21/17 06:26 White Blood Count 10.2 Red Blood Count 4.22 L Hemoglobin 10.4 L Hematocrit 34.4 L Mean Corpuscular Volume 81.5 L Mean Corpuscular Hemoglobin 24.6 L Mean Corpuscular Hemoglobin Concent 30.2 L Red Cell Distribution Width 18.0 H Platelet Count 257 Mean Platelet Volume 11.1 H Neutrophils % 60.1 Lymphocytes % 24.1 Monocytes % 11.5 H Eosinophils % 3.0 Basophils % 0.3 Nucleated Red Blood Cells % 0.0 Neutrophils # 6.1 Lymphocytes # 2.5 Monocytes # 1.2 H Eosinophils # 0.3 Basophils # 0.0 Nucleated Red Blood Cells # 0.0 Sodium Level 138 Potassium Level 3.0 L Chloride Level 98 Carbon Dioxide Level 30 Anion Gap 13 Blood Urea Nitrogen 5 L Creatinine 0.58 L Glucose Level 110 Calcium Level 7.7 L Medications Medications Current Medications Ondansetron HCl (Zofran Inj) 4 mg Q6H PRN IV NAUSEA AND/OR VOMITING Last administered on 11/02/17 13:46; Admin Dose 4 MG; Start 10/14/17 at 21:30 Nitroglycerin (Nitroglycerin (Sl Tab) 0.4 Mg) 1 tab Q5M PRN SL CHEST PAIN; Start 10/14/17 at 21:30 Acetaminophen (Tylenol Tab) 650 mg Q6H PRN PO PAIN LEVEL 1-3 OR FEVER Last administered on 11/13/17 05:44; Admin Dose 650 MG; Start 10/14/17 at 21:30 Multi-Ingredient Ointment (Eucerin Cream) 1 applic BID TOP Last administered on 11/21/17 08:52; Admin Dose 1 APPLIC; Start 10/16/17 at 09:00 Triamcinolone Acetonide (Kenalog 0.1% Oint) 1 applic BID TOP Last administered on 11/21/17 08:52; Admin Dose 1 APPLIC; Start 10/16/17 at 14:00 Miscellaneous Information 1 ea NOTE XX ; Start 10/19/17 at 18:00 Glucose (Glutose) 15 gm Q15M PRN PO DECREASED GLUCOSE; Start 10/19/17 at 18:00 Glucose (Glutose) 22.5 gm Q15M PRN PO DECREASED GLUCOSE; Start 10/19/17 at 18: 00 Dextrose (D50w Syringe) 25 ml Q15M PRN IV DECREASED GLUCOSE; Start 10/19/17 at 18:00 Dextrose (D50w Syringe) 50 ml Q15M PRN IV DECREASED GLUCOSE; Start 10/19/17 at 18:00 Glucagon (Glucagen) 1 mg Q15M PRN IM DECREASED GLUCOSE; Start 10/19/17 at 18: 00 Glucose (Glutose) 15 gm Q15M PRN BUCCAL DECREASED GLUCOSE; Start 10/19/17 at 18:00 IV Flush (NS 10 ml) 10 ml PRN PRN IV IV PROTOCOL; Start 10/22/17 at 19:00 Docusate Sodium (Colace Liquid Cup) 100 mg BID GTB Last administered on 21:20; Admin Dose 100 MG; Start 10/24/17 at 21:00 Lansoprazole (Prevacid) 30 mg BID@ GTB Last administered on 11/21/17 06: 36; Admin Dose 30 MG; Start 11/04/17 at 18:00 Chlorhexidine Gluconate (Peridex) 15 ml BID MT Last administered on 11/21/17 08:50; Admin Dose 15 ML; Start 11/18/17 at 21:00 Triamcinolone (Kenalog 0.1% Lotion) 1 applic BID TOP Last administered on 11/21 08:52; Admin Dose 1 APPLIC; Start 11/18/17 at 21:30 Apixaban (Eliquis) 5 mg BID GTB Last administered on 11/21/17 08:56; Admin Dose 5 MG; Start 11/20/17 at 09:00 Potassium Chloride (Potassium Chloride Pwd/Soln) 40 meq ONCE ONCE GTB ; Start 11/21/17 at 16:00; Stop 11/21/17 at 16:01 BRITTANY CHA Nov 21, 2017 13:48
--- NOTE | 2017-11-21 14:59 | DS ---
Date/Time of Note Date/Time of Note DATE: 11/21/17 TIME: 14:59 Discharge Summary Admission/Discharge Info Admit Date/Time Oct 14, 2017 at 20:55 Discharge Date/Time 11/21/17 . Discharge Diagnosis 47-year-old morbidly obese male originally admitted for shortness of breath and bilateral lower extremity swelling now managed as follows. Patient has had a prolonged hospitalization stay.: Acute on chronic hypercapnic respiratory failure/failure to wean status post trach now on T piece Chronic heart failure with preserved ejection fraction Likely obstructive sleep apnea/obesity hypoventilation syndrome Status post PEG tube placement on PEG feeds, now allowed small purees for oral gratification Gastric ulcer on BID PPI Hypokalemia: repleted S/p Staph respiratory infection S/p Staph/enterococcus UTI Morbid obesity DVT with concerns for possible PE Hx of psoriasis Patient Condition: Stable Consults * Pulmonary: [facility] / quarni * CTS: malekmehr * GI: suchov * Pain mgt : [place] . Home Meds Reported Medications Methotrexate* (Methotrexate*) Unknown Strength Tab, PO, TAB 10/15/17 Follow-up Plan patient's care will be taken over by PCP and pulmonary at SNF . Primary Care Provider Not On Staff Doctor Time spent on discharge: > 30 minutes Pending Labs Laboratory Tests Test 11/21/17 06:26 White Blood Count 10.210^3/ul (4.8-10.8) Red Blood Count 4.2210^6/ul (4.70-6.10) Hemoglobin 10.4g/dl (14.0-18.0) Hematocrit 34.4% (42.0-52.0) Mean Corpuscular Volume 81.5fl (82.0-101.0) Mean Corpuscular Hemoglobin 24.6pg (29.0-33.0) Mean Corpuscular Hemoglobin Concent 30.2g/dl (32.0-37.0) Red Cell Distribution Width 18.0% (11.5-14.5) Platelet Count 17575^3/UL (140-415) Mean Platelet Volume 11.1fl (7.4-10.4) Neutrophils % 60.1% (39.0-77.0) Lymphocytes % 24.1% (15.0-51.0) Monocytes % 11.5% (0.0-11.0) Eosinophils % 3.0% (0.0-7.0) Basophils % 0.3% (0.0-2.0) Nucleated Red Blood Cells % 0.0/100WBC (0.0-0.0) Neutrophils # 6.110^3/ul (1.6-7.5) Lymphocytes # 2.510^3/ul (0.8-2.9) Monocytes # 1.210^3/ul (0.3-0.9) Eosinophils # 0.310^3/ul (0.0-0.5) Basophils # 0.010^3/ul (0.0-0.1) Nucleated Red Blood Cells # 0.010^3/ul (0.0-0.0) Sodium Level 138mmol/L (135-144) Potassium Level 3.0mmol/L (3.5-5.1) Chloride Level 98mmol/L (97-110) Carbon Dioxide Level 30mmol/L (21-31) Anion Gap 13 (8-16) Blood Urea Nitrogen 5mg/dl (7-20) Creatinine 0.58mg/dl (0.61-1.24) Glucose Level 110mg/dl (70-220) Calcium Level 7.7mg/dl (8.4-10.2) BRITTANY CHA Nov 21, 2017 14:59
--- NOTE | 2017-11-21 15:00 | PDOCDIS ---
Discharge Instructions DIAGNOSIS Discharge Diagnosis 47-year-old morbidly obese male originally admitted for shortness of breath and bilateral lower extremity swelling now managed as follows. Patient has had a prolonged hospitalization stay.: Acute on chronic hypercapnic respiratory failure/failure to wean status post trach now on T piece Chronic heart failure with preserved ejection fraction Likely obstructive sleep apnea/obesity hypoventilation syndrome Status post PEG tube placement on PEG feeds, now allowed small purees for oral gratification Gastric ulcer on BID PPI Hypokalemia: repleted S/p Staph respiratory infection S/p Staph/enterococcus UTI Morbid obesity DVT with concerns for possible PE : on eliquis Hx of psoriasis CONDITION Patient Condition: Stable HOME CARE INSTRUCTIONS: Special Diet: GTB feeding + small vol puree ACTIVITY: Activity Restrictions Comment: PT FOLLOW UP/APPOINTMENTS Follow-up Plan Per MD at [facility] BRITTANY CHA Nov 21, 2017 15:00
== END 2017-11-21 22:00 | DRG 4 ==
LOC: E/R 18:41 → TEL 20:55 → ICU 10-17 08:15 → TEL 11-11 17:10
PROVIDERS: ADMIT Family Medicine; ATTEND Family Medicine
PROC: 4A133R1 Monitoring of Arterial Saturation, Peripheral, Percutaneous Approach (ICD-10-PCS; 2017-10-15)
PROC: 5A1955Z Respiratory Ventilation, Greater than 96 Consecutive Hours (ICD-10-PCS; 2017-10-17)
PROC: 0BH17EZ Insertion of Endotracheal Airway into Trachea, Via Natural or Artificial Opening (ICD-10-PCS; 2017-10-17)
PROC: 0B110F4 Bypass Trachea to Cutaneous with Tracheostomy Device, Open Approach (ICD-10-PCS; principal; 2017-11-01 19:00)
PROC: 0DH63UZ Insertion of Feeding Device into Stomach, Percutaneous Approach (ICD-10-PCS; 2017-11-02)
DX: J96.21 Acute and chronic respiratory failure with hypoxia (principal); I26.99 Other pulmonary embolism without acute cor pulmonale; J18.9 Pneumonia, unspecified organism; J81.1 Chronic pulmonary edema; E87.0 Hyperosmolality and hypernatremia; I50.32 Chronic diastolic (congestive) heart failure; E11.9 Type 2 diabetes mellitus without complications; K25.9 Gastric ulcer, unspecified as acute or chronic, without hemorrhage or perforation; B95.2 Enterococcus as the cause of diseases classified elsewhere; E66.2 Morbid (severe) obesity with alveolar hypoventilation; Z68.45 Body mass index [BMI] 70 or greater, adult; N39.0 Urinary tract infection, site not specified; I82.509 Chronic embolism and thrombosis of unspecified deep veins of unspecified lower extremity; J96.22 Acute and chronic respiratory failure with hypercapnia; D72.829 Elevated white blood cell count, unspecified; I25.2 Old myocardial infarction; I25.10 Atherosclerotic heart disease of native coronary artery without angina pectoris; L40.9 Psoriasis, unspecified; R33.9 Retention of urine, unspecified; R63.3 Feeding difficulties; E87.6 Hypokalemia; B95.61 Methicillin susceptible Staphylococcus aureus infection as the cause of diseases classified elsewhere; Z51.5 Encounter for palliative care; Z82.49 Family history of ischemic heart disease and other diseases of the circulatory system; Z86.74 Personal history of sudden cardiac arrest; Z99.3 Dependence on wheelchair; Z91.19 Patient's noncompliance with other medical treatment and regimen
CPT/HCPCS: 31500; 36415; 36569; 36600; 71010; 76937; 80048; 80053; 80061; 80202; 81001; 82550; 82553; 82803; 82962; 83036; 83605; 83735; 83880; 84100; 84443; 84484; 85025; 85378; 85610; 85730; 87040; 87070; 87081; 87086; 87338; 92526; 92610; 93005; 93306; 93970; 94002; 94003; 94640; 94660; 94664; 94770; 96372; 96374; 96375; 97110; 97116; 97161; 97530; J1940; C9113; J0690; J0692; J1200; J1630; J1650; J1815; J2001; J2060; J2250; J2270; J2405; J2997; J3010; J3370; J3475; J3480; J7040; J7042; J7070

== ENCOUNTER 2019-03-12 17:30 | Inpatient (IN) | payer OTHER ==
[~2019-03-12] VITALS: Ht 167.6 cm; Wt 258.0 kg
[~2019-03-12 17:30] MED LIST: MET25 PO
[2019-03-12] MEDS ORDERED: ACETAMINOPHEN 325 MG TAB PO PRN ×2 (19:00→22:30)
[2019-03-12] MEDS ORDERED: ONDANSETRON 4 MG INJ IV PRN ×2 (19:00→22:30)
--- NOTE | 2019-03-12 19:00 | ERD ---
ER Documentation Chief Complaint Chief Complaint Complains of SOB Hx of Asthma, COPD HPI 48-year-old gentleman history of morbid obesity with recurrent episodes of respiratory failure secondary to pickwickian syndrome and obesity hyp oventilation. The patient had 2 recent hospitalizations for similar symptoms in [place] over the past several weeks. He states that he just made it back into town he does not have a BiPAP or CPAP machine at home and can no longer care for himself. He can barely get out of his scooter. Patient is having increasing shortness of breath over this timeframe. He is concerned about respiratory arr est and is asking for hospitalization, placement in rehabilitation. ROS All systems reviewed and are negative except as per history of present illness. Medications Home Meds Reported Medications Methotrexate* (Methotrexate*) Unknown Strength Tab, PO, TAB 10/15/17 Allergies Allergies: Coded Allergies: No Known Allergy (Unverified , 11/19/17) PMhx/Soc History of Surgery: No Anesthesia Reaction: Yes (SLEEP APNEA) Hx Neurological Disorder: No Hx Respiratory Disorders: Yes (ASTHMA,SLEEP APNEA) Hx Cardiac Disorders: Yes (HTN) Hx Psychiatric Problems: No Hx Miscellaneous Medical Probl: Yes (morbid obesity) Hx Alcohol Use: No Hx Substance Use: No Hx Tobacco Use: No Smoking Status: Never smoker FmHx Family History: No diabetes Physical Exam Vitals Vital Signs Date Temp Pulse Resp B/P (MAP) Pulse Ox O2 O2 Flow FiO2 Time Delivery Rate 03/12/19 98.7 20 163/85 96 Room Air 20:36 (111) 03/12/19 98.7 121 20 174/86 96 17:34 (115) Physical Exam General: Well developed, well nourished, no acute distress, conversive, morbidly obese unable to get out of chair Head: Normocephalic, atraumatic. Eyes: Pupils equally reactive, EOM intact ENT: Moist mucous membranes Neck: Supple, no lymphadenopathy Respiratory: Lungs clear bilaterally, no distress Cardiovascular: RRR, no murmurs, rubs, or gallops Abdominal: Soft, non-tender, non-distended, no peritoneal signs : Deferred MSK: No edema, no unilateral swelling, 5/5 strength Neurologic: Alert and oriented, moving all extremities, normal speech, no focal weakness, no cerebellar signs Skin: No rash Psych: Normal mood Result Diagram: 03/12/19181603/12/191816 Results 24 hrs Laboratory Tests Test 03/12/19 18:17 White Blood Count 14.3 10^3/ul Red Blood Count 4.63 10^6/ul Hemoglobin 10.9 g/dl Hematocrit 37.3 % Mean Corpuscular Volume 80.6 fl Mean Corpuscular Hemoglobin 23.5 pg Mean Corpuscular Hemoglobin Concent 29.2 g/dl Red Cell Distribution Width 21.9 % Platelet Count 383 10^3/UL Mean Platelet Volume 10.0 fl Immature Granulocytes % 1.000 % Neutrophils % 70.7 % Lymphocytes % 17.3 % Monocytes % 8.7 % Eosinophils % 2.0 % Basophils % 0.3 % Nucleated Red Blood Cells % 0.0 /100WBC Immature Granulocytes # 0.150 10^3/ul Neutrophils # 10.1 10^3/ul Lymphocytes # 2.5 10^3/ul Monocytes # 1.3 10^3/ul Eosinophils # 0.3 10^3/ul Basophils # 0.1 10^3/ul Nucleated Red Blood Cells # 0.0 10^3/ul Sodium Level 141 mmol/L Potassium Level 3.5 mmol/L Chloride Level 99 mmol/L Carbon Dioxide Level 33 mmol/L Anion Gap 9 Blood Urea Nitrogen 15 mg/dl Creatinine 0.69 mg/dl Est Glomerular Filtrat Rate mL/min > 60 mL/min Glucose Level 185 mg/dl Calcium Level 9.2 mg/dl Troponin I < 0.012 ng/ml B-Type Natriuretic Peptide 64 PG/ML Current Medications Medications Dose Sig/Jonas Start Time Status Last (Trade) Ordered Route PRN Stop Time Admin Dose Reason Admin Ondansetron 4 mg ER BRIDGE 03/12/19 HCl (Zofran PRN IV 19:00 Inj) NAUSEA/VOMITI 03/13/19 18:59 NG 650 mg ER BRIDGE 03/12/19 Acetaminophen PRN PO 19:00 (Tylenol .MILD PAIN 03/13/19 18:59 Tab) 1-3 OR TEMP Procedures/MDM EKG, MONITORS, & DIAGNOSTIC IMAGING: EKG: I reviewed and interpreted a 12-lead EKG. Rhythm: Slight sinus tachycardia ST Changes: No contiguous ST segment elevations T waves: No contiguous T wave inversions Impression: [No evidence of acute cardiac ischemia] Chest x-ray: I reviewed and interpreted a 1 view of the chest, limited penetration given habitus Mediastinum: No enlargement Cardiac silhouette: No cardiomegaly Airspace: Clear lung valdovinos bilaterally without evidence of pneumothorax Bones: No evidence of fracture LAB INTERPRETATION: I reviewed the laboratory testing and it shows [no evidence of acute process], pt refused abg MEDICAL DECISION MAKING: Patient presents with shortness of breath. The patient is at risk for respiratory failure given his body habitus, history. ABG appropriate that the patient is mentating and conversive and protecting airway. Patient does not have home resources. He does not have a positive pressure ventilation syndrome and is at risk for respiratory failure and arrest if he does not have these equipment. The patient is having difficulties with ADLs. Inpatient hospitalization is necessary to facilitate initiation of positive pressure ventilation at night, family welfare social work professor and case management with likely placement. No signs or symptoms concerning for CHF, PE,Acute coronary syndrome at this time. Pt is protecting his airway does not require intubation or airway management ER COURSE: * Patient is falling asleep multiple times. The patient is refusing ABG. The patient is arousable at this time. The patient is refusing positive pressure ventilation until he can get a bariatric bed. That is quite difficult at this time in the emergency room setting. We are trying to meet his request and the patient was informed that his noncompliance with medical treatment may lead to respiratory arrest and . Patient has capacity. * At this point the patient does not require intubation. Close monitoring on telemetry unit is necessary. Patient will have initiation of positive pressure ventilation upon arrival to the floor. Patient is currently being transferred. CONSULTATION: [None] DISPOSITION PLAN: Accepting care team and consultations: I discussed the current laboratory data, diagnostic imaging and emergency care provided. Admitting team: Dr. Topete Admitting team indication: Insurance directed Departure Diagnosis: Primary Impression: Shortness of breath Additional Impressions: Obesity hypoventilation syndrome Morbid obesity Condition: Stable HI BLANCAS MD Mar 12, 2019 19:00
[2019-03-12 22:07] VITALS: PULSE 110
[2019-03-12] MEDS ORDERED: ALBU18HF INHALATION (22:13)
[2019-03-12] MEDS ORDERED: ATOR40TA68 PO (22:13)
[2019-03-12] MEDS ORDERED: LOSA50TA14 PO (22:13)
[2019-03-12] MEDS ORDERED: MTF1000T PO (22:13)
[2019-03-12] MEDS ORDERED: ACET500C PO (22:13)
[2019-03-12] MEDS ORDERED: CYAN1TAB16 PO (22:13)
[2019-03-12] MEDS ORDERED: FOLI-49 PO (22:13)
[2019-03-12] MEDS ORDERED: NACL 0.9% 3 ML SYG IV SCH (22:30)
[2019-03-12] MEDS ORDERED: MET25 PO (22:53)
[2019-03-12] MEDS ORDERED: PRED20TA PO (22:56)
[2019-03-12] MEDS ORDERED: KEN25O TOP (22:59)
[2019-03-12 23:00] VITALS: BP 145/69; PULSE 111; RESP 22; Ht 167.6 cm; Wt 258.0 kg
--- NOTE | 2019-03-12 23:33 | HP ---
Date/Time of Note Date/Time of Note DATE: 03/12/19 TIME: 23:33 Assessment/Plan VTE Prophylaxis Pharmacological prophylaxis: heparin Lines/Catheters IV Catheter Type (from Nrs): Saline Lock Assessment/Plan Assessment/Plan 1. Shortness of breath, secondary to JANA and obesity hypoventilation syndrome -Patient with a history of respiratory failure requiring tracheostomy here in 2017 -Supplemental oxygen, bronchodilators -As needed BiPAP -Pulmonary consult -Chest CT and 2D echo 2. SIRS with possible sepsis: Presented with leukocytosis and tachycardia: Chest x-ray with possible atypical infectious process -Will treat with antibiotic -Given chest x-ray with possible edema, caution about fluid 3. Hypertension: Adjust BP meds as needed 4. 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 Extensive psoriasis: Continue patient triamcinolone, methotrexate -Patient has been on methotrexate and as such it would have been nice to do chest CT to evaluate for fibrosis, which methotrexate is known to cause, but due to patient's size, CT cannot be done here. Continue folate Result Diagram: 03/12/19181603/12/197 Results 24hrs Laboratory Tests Test 03/12/19 18:17 White Blood Count 14.3 #H Red Blood Count 4.63 L Hemoglobin 10.9 L Hematocrit 37.3 L Mean Corpuscular Volume 80.6 L Mean Corpuscular Hemoglobin 23.5 L Mean Corpuscular Hemoglobin Concent 29.2 L Red Cell Distribution Width 21.9 #H Platelet Count 383 # Mean Platelet Volume 10.0 Immature Granulocytes % 1.000 H Neutrophils % 70.7 Lymphocytes % 17.3 Monocytes % 8.7 Eosinophils % 2.0 Basophils % 0.3 Nucleated Red Blood Cells % 0.0 Immature Granulocytes # 0.150 H Neutrophils # 10.1 H Lymphocytes # 2.5 Monocytes # 1.3 H Eosinophils # 0.3 Basophils # 0.1 Nucleated Red Blood Cells # 0.0 Sodium Level 141 Potassium Level 3.5 Chloride Level 99 Carbon Dioxide Level 33 H Anion Gap 9 Blood Urea Nitrogen 15 Creatinine 0.69 Est Glomerular Filtrat Rate mL/min > 60 Glucose Level 185 Calcium Level 9.2 Troponin I < 0.012 B-Type Natriuretic Peptide 64 HPI/ROS Admit Date/Time Admit Date/Time Mar 12, 2019 at 18:53 Hx of Present Illness This is a 48-year-old morbidly obese male with a history of respiratory failure requiring tracheostomy, JANA, hypertension, psoriasis who presents the ER complaining of shortness of breath. Patient has a chronic shortness of breath, but has been worsening for the past few days. He was recently admitted to another hospital in [place]. Patient was admitted here in 2017 for respiratory failure requiring tracheostomy. Patient no longer trach or vent dependent. He denied chest pain. When he presented to the ER, blood pressure 174/86, heart rate 121. Oxygen saturation 96%. Chest x-ray shows Mild bilateral central interstitial thickening, trace interstitial edema or atypical infectious/inflammatory process. WBC 14,000. Patient does not have CPAP at home. PMH/Family/Social Past Medical History Medical History: other (See HPI) Medications Current Medications Ondansetron HCl (Zofran Inj) 4 mg ER BRIDGE PRN IV NAUSEA/VOMITING; Start 03/12/19 at 19:00; Stop 03/13/19 at 18:59 Acetaminophen (Tylenol Tab) 650 mg ER BRIDGE PRN PO .MILD PAIN 1-3 OR TEMP; Start 03/12/19 at 19:00; Stop 03/13/19 at 18:59 IV Flush (NS 3 ml) 3 ml PER PROTOCOL IV ; Start 03/12/19 at 22:30 Ondansetron HCl (Zofran Inj) 4 mg Q6H PRN IV NAUSEA/VOMITING; Start 03/12/19 at 22:30 Acetaminophen (Tylenol Tab) 650 mg Q6H PRN PO .PAIN 1-3 OR TEMP; Start 03/12/19 at 22:30 Enoxaparin Sodium (Lovenox) 40 mg DAILY SC ; Start 03/13/19 at 09:00 Albuterol/ Ipratropium (Duoneb) 3 ml Q2H RESP THERAPY PRN HHN SHORTNESS OF BREATH; Start 03/12/19 at 22:30 Mometasone Furoate (Asmanex) 1 puff BID INH ; Start 03/13/19 at 09:00 Coded Allergies: No Known Allergy (Unverified , 03/12/19) Past Surgical History Past Surgical Hx: other (See HPI) Family History Significant Family History: no pertinent family hx Social History Alcohol Use: none Smoking Status: Never smoker Drug Use: none Exam/Review of Systems Vital Signs Vitals Vital Signs Date Temp Pulse Resp B/P (MAP) Pulse Ox O2 O2 Flow FiO2 Time Delivery Rate 03/12/19 110 22:07 03/12/19 98.7 20 163/85 96 Room Air 20:36 (111) Exam Constitutional: other (Morbidly obese male sitting on his motorized scooter. No acute distress) Head: normocephalic, atraumatic Eyes: PERRL Respiratory: other (Decreased breath sounds at the bases) Cardiovascular: other (Tachycardic regular rhythm) Gastrointestinal: other (Morbidly obese) Skin: rash or lesions MARY SPIVEY MD Mar 12, 2019 23:33
[2019-03-13] VITALS (12 sets, daily range): BP systolic 135–152; BP diastolic 65–72; PULSE 74–123; RESP 18–22
[2019-03-13] MEDS ORDERED: METHOTREXATE 2.5 MG TAB PO ONE (02:00)
[2019-03-13] MEDS: LOSARTAN 50 MG TAB PO SCH (09:10)
[2019-03-13] MEDS: FOLIC ACID 1 MG TAB PO SCH (09:10)
[2019-03-13] MEDS: predniSONE 20 MG TAB PO SCH ×2 (09:11→21:48)
[2019-03-13] MEDS: MOMETASONE 0.24 GM INHALER INH SCH ×2 (09:11→21:47)
[2019-03-13] MEDS: ENOXAPARIN 40 MG/0.4 ML SYG SC SCH (09:34)
[2019-03-13] MEDS: morphine 4 MG/ML VIAL IV PRN ×3 (09:44→23:31)
--- NOTE | 2019-03-13 10:47 | CONS ---
Assessment/Plan Assessment/Plan Assessment/Plan (Daily) Chest x-ray was reviewed which is essentially unremarkable. There is perhaps minimal if any interstitial prominence. Assessment recommendations; 1. Patient admitted with shortness of breath for the last 2 days with with mild leukocytosis, clinically improved on current treatment regimen. 2. History of prior respiratory failure, status post decannulation of tracheostomy. 3. Underlying obesity/hypoventilation syndrome. 4. Likely some element of interstitial lung disease as well. 5. History of hypertension. 6. Mild anemia. 7. Chronic immunosuppression. Add Levaquin 750 mg IV daily. Obtain urine analysis to rule out UTI. Obtain ABG as well. Further recommendations once ABG is performed. Add Lovenox for DVT prophylaxis. Obtain follow-up chest x-ray 24 hours. Consultation Date/Type/Reason Admit Date/Time Mar 12, 2019 at 18:53 Date of Consultation: Mar 13, 2019 Type of Consult Pulmonary Patient is a 48-year-old male who came into the hospital with a 2-day history of shortness of breath and mild chest congestion. Patient denies any wheezing, high fever, body aches or myalgias. By the time I saw him in the room, patient was quite comfortable and was reporting improvement in symptoms. Past medical history; 1. History of morbid obesity with sleep apnea syndrome, patient was admitted at [facility] in late 2017 and ultimately required a tracheostomy and since now has been decannulated. 2. History of sleep apnea. 3. Possibly some element of CHF. 4. Hypertension. 5. Chronic immunosuppression, patient on outpatient prednisone and methotrexate. Medications; reviewed. Allergies; none. Social history; noncontributory. Family history; noncontributory. Occupational history; patient is on disability. Review of systems; denies any headache, seizures, visual changes, any sinus symptoms. Shortness of breath has improved. Denies any wheezing, sputum production or hemoptysis. Any chest pain or angina. Denies any abdominal pain, nausea vomiting. Denies any edema. Any GI or urinary symptoms. Patient does complain of snoring. Has gained some weight. General exam; young male, morbidly obese, awake and alert. Currently in no distress. Date/Time of Note DATE: 03/13/19 TIME: 10:42 Past Medical History Medical History: other (See HPI) Home Meds Reported Medications Triamcinolone Acetonide* (Kenalog*) 0.025%-15GM Oint, 1 APPLIC TOP TID, #1 EA 03/12/19 Prednisone* (Prednisone*) 20 Mg Tab, 20 MG PO BID, TAB 03/12/19 Methotrexate* (Methotrexate*) 2.5 Mg Tab, 27.5 MG PO for 7 Days, TAB 03/12/19 Metformin* (Glucophage*) 1,000 Mg Tablet, 1000 MG PO DAILY, #30 TAB 03/12/19 Losartan Potassium* (Losartan Potassium*) 50 Mg Tablet, 50 MG PO DAILY, TAB 03/12/19 Folic Acid* (Folic Acid*) 1 Mg Tablet, 1 MG PO DAILY, TAB 03/12/19 Cyanocobalamin/FA/Pyridoxine (Folbee Tablet) 1 Each Tablet, 1 EACH PO DAILY, TAB 03/12/19 Atorvastatin* (Atorvastatin*) 40 Mg Tablet, 40 MG PO QHS, #30 TAB 03/12/19 Albuterol Sulfate* (Ventolin HFA*) 18 Gm Hfa.aer.ad, 1 PUFF INHALATION Q4H for dyspnea, #1 INHALER 03/12/19 Acetazolamide* (Acetazolamide* ER) 500 Mg Capsule.er, 500 MG PO TID, #60 CAP 03/12/19 Methotrexate* (Methotrexate*) Unknown Strength Tab, PO, TAB 10/15/17 Medications Current Medications Ondansetron HCl (Zofran Inj) 4 mg ER BRIDGE PRN IV NAUSEA/VOMITING; Start 03/12/19 at 19:00; Stop 03/13/19 at 18:59 Acetaminophen (Tylenol Tab) 650 mg ER BRIDGE PRN PO .MILD PAIN 1-3 OR TEMP; Start 03/12/19 at 19:00; Stop 03/13/19 at 18:59 IV Flush (NS 3 ml) 3 ml PER PROTOCOL IV ; Start 03/12/19 at 22:30 Ondansetron HCl (Zofran Inj) 4 mg Q6H PRN IV NAUSEA/VOMITING; Start 03/12/19 at 22:30 Acetaminophen (Tylenol Tab) 650 mg Q6H PRN PO .PAIN 1-3 OR TEMP; Start 03/12/19 at 22:30 Enoxaparin Sodium (Lovenox) 40 mg DAILY SC Last administered on 03/13/19at 09:34; Admin Dose 40 MG; Start 03/13/19 at 09:00 Albuterol/ Ipratropium (Duoneb) 3 ml Q2H RESP THERAPY PRN HHN SHORTNESS OF BREATH; Start 03/12/19 at 22:30 Mometasone Furoate (Asmanex) 1 puff BID INH Last administered on 03/13/19at 09:11; Admin Dose 1 PUFF; Start 03/13/19 at 09:00 Morphine Sulfate (morphine) 3 mg Q4H PRN IV SEVERE PAIN LEVEL 7-10 Last administered on 03/13/19at 09:44; Admin Dose 3 MG; Start 03/13/19 at 07:00 Atorvastatin Calcium (Lipitor) 40 mg QHS PO ; Start 03/13/19 at 21:00 Folic Acid (Folic Acid) 1 mg DAILY PO Last administered on 03/13/19at 09:10; Admin Dose 1 MG; Start 03/13/19 at 09:00 Losartan Potassium (Cozaar) 50 mg DAILY PO Last administered on 03/13/19at 09:1 0; Admin Dose 50 MG; Start 03/13/19 at 09:00 Prednisone (Prednisone) 20 mg BID PO Last administered on 03/13/19at 09:11; Admin Dose 20 MG; Start 03/13/19 at 09:00 Triamcinolone Acetonide (Kenalog 0.025% Oint) 1 applic TID TOP ; Start 03/13/19 at 09:00 Allergies: Coded Allergies: No Known Allergy (Unverified , 03/12/19) Past Surgical History Past Surgical Hx: other (See HPI) Social History Alcohol Use: none Smoking Status: Never smoker Drug Use: none Exam/Review of Systems Exam Vitals Vital Signs Date Temp Pulse Resp B/P (MAP) Pulse Ox O2 O2 Flow FiO2 Time Delivery Rate 03/13/19 115 08:15 03/13/19 98.4 18 142/67 90 08:05 (92) 03/13/19 30 04:55 03/12/19 Room Air 20:36 Exam H EENT exam; supple neck, no JVD. No lymphadenopathy. Midline trachea. No thyromegaly. Patient has fair dentition. There is a well-healed prior trache ostomy scar. Chest exam; diminished but clear breath sounds. S1-S2 audible, no murmurs. Regular rhythm. Abdomen exam; soft, nontender. Protuberant. Organomegaly difficult to assess. Bowel sounds audible. There is a well-healed epigastric scar. Extremity exam; no peripheral edema. Pulses 1+. [employer] exam; no focal deficit. Results Result Diagram: 03/13/19 0716 03/13/19 0716 Results 24hrs Laboratory Tests Test 03/12/19 18:17 03/13/19 07:16 White Blood Count 14.3 #H 16.1 H Red Blood Count 4.63 L 4.45 L Hemoglobin 10.9 L 10.6 L Hematocrit 37.3 L 36.6 L Mean Corpuscular Volume 80.6 L 82.2 Mean Corpuscular Hemoglobin 23.5 L 23.8 L Mean Corpuscular Hemoglobin Concent 29.2 L 29.0 L Red Cell Distribution Width 21.9 #H 21.8 H Platelet Count 383 # 377 Mean Platelet Volume 10.0 10.1 Immature Granulocytes % 1.000 H 1.200 H Neutrophils % 70.7 72.5 Lymphocytes % 17.3 14.4 L Monocytes % 8.7 9.3 Eosinophils % 2.0 2.2 Basophils % 0.3 0.4 Nucleated Red Blood Cells % 0.0 0.0 Immature Granulocytes # 0.150 H 0.200 H Neutrophils # 10.1 H 11.7 H Lymphocytes # 2.5 2.3 Monocytes # 1.3 H 1.5 H Eosinophils # 0.3 0.4 Basophils # 0.1 0.1 Nucleated Red Blood Cells # 0.0 0.0 Sodium Level 141 141 Potassium Level 3.5 3.7 Chloride Level 99 99 Carbon Dioxide Level 33 H 33 H Anion Gap 9 9 Blood Urea Nitrogen 15 12 Creatinine 0.69 0.61 Est Glomerular Filtrat Rate mL/min > 60 > 60 Glucose Level 185 120 # Calcium Level 9.2 9.0 Troponin I < 0.012 B-Type Natriuretic Peptide 64 Magnesium Level 1.6 L Total Bilirubin 0.5 Direct Bilirubin 0.00 Indirect Bilirubin 0.5 Aspartate Amino Transf (AST/SGOT) 16 Alanine Aminotransferase (ALT/SGPT) 29 Alkaline Phosphatase 45 Total Protein 7.1 Albumin 3.7 Globulin 3.40 H Albumin/Globulin Ratio 1.08 Triglycerides Level 69 Cholesterol Level 144 LDL Cholesterol, Calculated 88 HDL Cholesterol 42 Cholesterol/HDL Ratio 3.4 Medications Medication Current Medications Ondansetron HCl (Zofran Inj) 4 mg ER BRIDGE PRN IV NAUSEA/VOMITING; Start 03/12/19 at 19:00; Stop 03/13/19 at 18:59 Acetaminophen (Tylenol Tab) 650 mg ER BRIDGE PRN PO .MILD PAIN 1-3 OR TEMP; Start 03/12/19 at 19:00; Stop 03/13/19 at 18:59 IV Flush (NS 3 ml) 3 ml PER PROTOCOL IV ; Start 03/12/19 at 22:30 Ondansetron HCl (Zofran Inj) 4 mg Q6H PRN IV NAUSEA/VOMITING; Start 03/12/19 at 22:30 Acetaminophen (Tylenol Tab) 650 mg Q6H PRN PO .PAIN 1-3 OR TEMP; Start 03/12/19 at 22:30 Enoxaparin Sodium (Lovenox) 40 mg DAILY SC Last administered on 03/13/19at 09:34; Admin Dose 40 MG; Start 03/13/19 at 09:00 Albuterol/ Ipratropium (Duoneb) 3 ml Q2H RESP THERAPY PRN HHN SHORTNESS OF BREATH; Start 03/12/19 at 22:30 Mometasone Furoate (Asmanex) 1 puff BID INH Last administered on 03/13/19 09:11; Admin Dose 1 PUFF; Start 03/13/19 at 09:00 Morphine Sulfate (morphine) 3 mg Q4H PRN IV SEVERE PAIN LEVEL 7-10 Last administered on 03/13/19at 09:44; Admin Dose 3 MG; Start 03/13/19 at 07:00 Atorvastatin Calcium (Lipitor) 40 mg QHS PO ; Start 03/13/19 at 21:00 Folic Acid (Folic Acid) 1 mg DAILY PO Last administered on 03/13/19 09:10; Admin Dose 1 MG; Start 03/13/19 at 09:00 Losartan Potassium (Cozaar) 50 mg DAILY PO Last administered on 03/13/19 09:10; Admin Dose 50 MG; Start 03/13/19 at 09:00 Prednisone (Prednisone) 20 mg BID PO Last administered on 03/13/19 09:11; Admin Dose 20 MG; Start 03/13/19 at 09:00 Triamcinolone Acetonide (Kenalog 0.025% Oint) 1 applic TID TOP ; Start 03/13/19 at 09:00 GABRIEL MALDONADO Mar 13, 2019 10:47
[2019-03-13] MEDS: TRIAMCINOLONE ACET 0.025% 15 GM OINT TOP SCH ×3 (11:45→21:47)
[2019-03-13] MEDS: LEVOFLOXACIN 750MG/D5W (PMX) 150 ML IVPB SCH (11:45)
--- NOTE | 2019-03-13 12:02 | PN ---
Date/Time of Note Date/Time of Note DATE: 03/13/19 TIME: 12:01 Assessment/Plan VTE Prophylaxis Risk score (from Nsg)>0 risk: 5 Pharmacological prophylaxis: LMWH Lines/Catheters IV Catheter Type (from Nrsg): Saline Lock Urinary Cath still in place: No Assessment/Plan Hospital Course 1. Shortness of breath, secondary to JANA and obesity hypoventilation syndrome -Patient with a history of respiratory failure requiring tracheostomy here in 2017 -Supplemental oxygen, bronchodilators -As needed BiPAP -Pulmonary consult appreciated -Patient is too large for CT scan 2. SIRS with possible sepsis: Presented with leukocytosis and tachycardia: Chest x-ray with possible atypical infectious process -Will treat with antibiotic -Given chest x-ray with possible edema, caution about fluid 3. Hypertension: Adjust BP meds as needed 4. 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 Prophylaxis: Lovenox DC planning: Follow-up social science analyst and caseworker protective services evaluations Result Diagram: 03/13/19 0716 03/13/19 0716 Results 24hrs Laboratory Tests Test 03/12/19 18:17 03/13/19 07:16 White Blood Count 14.3 #H 16.1 H Red Blood Count 4.63 L 4.45 L Hemoglobin 10.9 L 10.6 L Hematocrit 37.3 L 36.6 L Mean Corpuscular Volume 80.6 L 82.2 Mean Corpuscular Hemoglobin 23.5 L 23.8 L Mean Corpuscular Hemoglobin Concent 29.2 L 29.0 L Red Cell Distribution Width 21.9 #H 21.8 H Platelet Count 383 # 377 Mean Platelet Volume 10.0 10.1 Immature Granulocytes % 1.000 H 1.200 H Neutrophils % 70.7 72.5 Lymphocytes % 17.3 14.4 L Monocytes % 8.7 9.3 Eosinophils % 2.0 2.2 Basophils % 0.3 0.4 Nucleated Red Blood Cells % 0.0 0.0 Immature Granulocytes # 0.150 H 0.200 H Neutrophils # 10.1 H 11.7 H Lymphocytes # 2.5 2.3 Monocytes # 1.3 H 1.5 H Eosinophils # 0.3 0.4 Basophils # 0.1 0.1 Nucleated Red Blood Cells # 0.0 0.0 Sodium Level 141 141 Potassium Level 3.5 3.7 Chloride Level 99 99 Carbon Dioxide Level 33 H 33 H Anion Gap 9 9 Blood Urea Nitrogen 15 12 Creatinine 0.69 0.61 Est Glomerular Filtrat Rate mL/min > 60 > 60 Glucose Level 185 120 # Calcium Level 9.2 9.0 Troponin I < 0.012 B-Type Natriuretic Peptide 64 Magnesium Level 1.6 L Total Bilirubin 0.5 Direct Bilirubin 0.00 Indirect Bilirubin 0.5 Aspartate Amino Transf (AST/SGOT) 16 Alanine Aminotransferase (ALT/SGPT) 29 Alkaline Phosphatase 45 Total Protein 7.1 Albumin 3.7 Globulin 3.40 H Albumin/Globulin Ratio 1.08 Triglycerides Level 69 Cholesterol Level 144 LDL Cholesterol, Calculated 88 HDL Cholesterol 42 Cholesterol/HDL Ratio 3.4 Subjective 24 Hr Interval Summary Constitutional: no complaints Exam/Review of Systems Exam Vitals Vital Signs Date Temp Pulse Resp B/P (MAP) Pulse Ox O2 O2 Flow FiO2 Time Delivery Rate 03/13/19 97.7 115 18 142/68 98 Nasal 11:56 (92) Cannula 03/13/19 30 04:55 Constitutional: alert, oriented Respiratory: clear to auscultation Cardiovascular: regular rate and rhythm Gastrointestinal: soft; No distended Musculoskeletal: nl extremities to inspection Results Results 24hrs Laboratory Tests Test 03/12/19 18:17 03/13/19 07:16 White Blood Count 14.3 #H 16.1 H Red Blood Count 4.63 L 4.45 L Hemoglobin 10.9 L 10.6 L Hematocrit 37.3 L 36.6 L Mean Corpuscular Volume 80.6 L 82.2 Mean Corpuscular Hemoglobin 23.5 L 23.8 L Mean Corpuscular Hemoglobin Concent 29.2 L 29.0 L Red Cell Distribution Width 21.9 #H 21.8 H Platelet Count 383 # 377 Mean Platelet Volume 10.0 10.1 Immature Granulocytes % 1.000 H 1.200 H Neutrophils % 70.7 72.5 Lymphocytes % 17.3 14.4 L Monocytes % 8.7 9.3 Eosinophils % 2.0 2.2 Basophils % 0.3 0.4 Nucleated Red Blood Cells % 0.0 0.0 Immature Granulocytes # 0.150 H 0.200 H Neutrophils # 10.1 H 11.7 H Lymphocytes # 2.5 2.3 Monocytes # 1.3 H 1.5 H Eosinophils # 0.3 0.4 Basophils # 0.1 0.1 Nucleated Red Blood Cells # 0.0 0.0 Sodium Level 141 141 Potassium Level 3.5 3.7 Chloride Level 99 99 Carbon Dioxide Level 33 H 33 H Anion Gap 9 9 Blood Urea Nitrogen 15 12 Creatinine 0.69 0.61 Est Glomerular Filtrat Rate mL/min > 60 > 60 Glucose Level 185 120 # Calcium Level 9.2 9.0 Troponin I < 0.012 B-Type Natriuretic Peptide 64 Magnesium Level 1.6 L Total Bilirubin 0.5 Direct Bilirubin 0.00 Indirect Bilirubin 0.5 Aspartate Amino Transf (AST/SGOT) 16 Alanine Aminotransferase (ALT/SGPT) 29 Alkaline Phosphatase 45 Total Protein 7.1 Albumin 3.7 Globulin 3.40 H Albumin/Globulin Ratio 1.08 Triglycerides Level 69 Cholesterol Level 144 LDL Cholesterol, Calculated 88 HDL Cholesterol 42 Cholesterol/HDL Ratio 3.4 Medications Medication Current Medications IV Flush (NS 3 ml) 3 ml PER PROTOCOL IV ; Start 03/12/19 at 22:30 Ondansetron HCl (Zofran Inj) 4 mg Q6H PRN IV NAUSEA/VOMITING; Start 03/12/19 at 22:30 Acetaminophen (Tylenol Tab) 650 mg Q6H PRN PO .PAIN 1-3 OR TEMP; Start 03/12/19 at 22:30 Enoxaparin Sodium (Lovenox) 40 mg DAILY SC Last administered on 03/13/19at 09:34; Admin Dose 40 MG; Start 03/13/19 at 09:00 Albuterol/ Ipratropium (Duoneb) 3 ml Q2H RESP THERAPY PRN HHN SHORTNESS OF BREATH; Start 03/12/19 at 22:30 Mometasone Furoate (Asmanex) 1 puff BID INH Last administered on 03/13/19at 09:11; Admin Dose 1 PUFF; Start 03/13/19 at 09:00 Morphine Sulfate (morphine) 3 mg Q4H PRN IV SEVERE PAIN LEVEL 7-10 Last administered on 03/13/19at 09:44; Admin Dose 3 MG; Start 03/13/19 at 07:00 Atorvastatin Calcium (Lipitor) 40 mg QHS PO ; Start 03/13/19 at 21:00 Folic Acid (Folic Acid) 1 mg DAILY PO Last administered on 03/13/19at 09:10; Admin Dose 1 MG; Start 03/13/19 at 09:00 Losartan Potassium (Cozaar) 50 mg DAILY PO Last administered on 03/13/19 09:10; Admin Dose 50 MG; Start 03/13/19 at 09:00 Prednisone (Prednisone) 20 mg BID PO Last administered on 03/13/19 09:11; Admin Dose 20 MG; Start 03/13/19 at 09:00 Triamcinolone Acetonide (Kenalog 0.025% Oint) 1 applic TID TOP Last administered on 03/13/19 11:45; Admin Dose 1 APPLIC; Start 03/13/19 at 09:00 Levofloxacin/ Dextrose 150 ml @ 100 mls/hr Q24H IVPB Last administered on 03/13/19 11:45; Admin Dose 100 MLS/HR; Start 03/13/19 at 11:00 TAMRA JOHNSON Mar 13, 2019 12:02
[2019-03-13] MEDS ORDERED: MAGNESIUM SULFATE 3 GM in DEXTROSE 5% 100 ML IVPB ONE (13:00)
--- NOTE | 2019-03-13 20:25 | RADRPT ---
Echocardiogram Report Patient Name: CLIFTON MANDUJANOPatient ID: [id number] : 1970 (48y 7m)Study Date: 03/13/2019 7:24:48 AM Gender: MAccession #: [id number] Tech: Orquidea Cevallos RDCS [place] [facility] Ref.Physician: MARY SPIVEY Height(Cm): BSA: Weight(Kg): Quality: Technically Difficult StudyAccount #: Procedures: Echocardiographic Report: Transthoracic echocardiogram with complete 2D, M-Mode, and doppler examination. Indications: Shortness of breath. Measurements: 2D/M Mode Doppler Measurement Value Normal Range Measurement Value Normal Range LVIDd 2D 4.3 [ 4.2 - 5.8 ] cm AV Mean Luan 1.6 [ 70.0 - 90.0 ] cm/sec LVIDs 2D 3.0 [ 2.5 - 4.0 ] cm AV Mean PG 13.0 [ 2.0 - 4.0 ] mmHg LVPWd 2D 1.6 [ 0.6 - 1.0 ] cm AV VTI 39.8 cm IVSd 2D 1.6 [ 0.6 - 1.0 ] cm LVOT Mean Luan 0.9 [ 60.0 - 80.0 ] cm/sec AoR Diam 2D 3.0 [ 2.6 - 3.4 ] cm LVOT Mean PG 4.0 [ 1.0 - 3.0 ] mmHg EDV 2D 82.2 [ 62.0 - 150.0 ] ml LVOT Peak Luan 1.3 [ 70.0 - 110.0 ] cm/sec ESV 2D 35.6 [ 21.0 - 61.0 ] ml LVOT Peak PG 7.0 [ 2.0 - 6.0 ] mmHg EF 2D 56.7 [ 52.0 - 72.0 ] percent LVOT VTI 23.4 [ 20.0 - 30.0 ] cm LA Dimen 2D 4.3 [ 3.0 - 4.0 ] cm TR Peak Luan 2.5 [ 100.0 - 280.0 ] cm/sec TR Peak PG 25.0 mmHg RVSP 40.0 [ 10.0 - 36.0 ] mmHg RA Pressure 15.0 mmHg Findings: Left Ventricle: Lower limits of normal systolic function. Normal left ventricular cavity size. Moderate concentric left ventricular hypertrophy. Ejection fraction is visually estimated at 50-55 %. Abnormal Diastolic Function. Right Ventricle: Not well visualized. Left Atrium: There is mild enlargement of left atrium. Right Atrium: Not well visualized. Mitral Valve: Normal appearance of the mitral valve. Mild mitral annular calcification. Trace mitral regurgitation. Aortic Valve: Aortic valve Max velocity 2.41 m/sec. Max PG 23.00 mmHg. Mean PG 13.00 mmHg. Aortic sclerosis without significant stenosis. Trace aortic valve regurgitation. Tricuspid Valve: Normal appearance of the tricuspid valve. Estimated peak PA systolic pressure 40 mmHg. There is trace to mild tricuspid regurgitation. Pulmonic Valve: Pulmonic valve not well visualized. Pericardium: Normal pericardium with no significant pericardial effusion. Aorta: Normal aortic root. IVC: Dilated IVC without respiratory collapse consistent with elevated right atrial pressure. Conclusions: Lower limits of normal systolic function. Normal left ventricular cavity size. Moderate concentric left ventricular hypertrophy. Ejection fraction is visually estimated at 50-55 %. Abnormal Diastolic Function. n. There is mild enlargement of left atrium. Normal appearance of the mitral valve. Mild mitral annular calcification. Trace mitral regurgitation. Normal appearance of the tricuspid valve. Estimated peak PA systolic pressure 40 mmHg. There is trace to mild tricuspid regurgitation. Electronically Signed By: Pavan Wall 2019-03-13 20:25:36 PDT
[2019-03-13] MEDS: ATORVASTATIN 40 MG TAB PO SCH (21:48)
[2019-03-14] VITALS (8 sets, daily range): BP systolic 132–162; BP diastolic 62–84; PULSE 67–102; RESP 19–23
[2019-03-14] MEDS: ALBUTEROL/IPRATROPIUM (NEB) 3 ML AMP HHN PRN ×4 (00:39→21:03)
[2019-03-14] MEDS: morphine 4 MG/ML VIAL IV PRN ×4 (03:49→21:26)
[2019-03-14] MEDS: LOSARTAN 50 MG TAB PO SCH (08:48)
[2019-03-14] MEDS: predniSONE 20 MG TAB PO SCH ×2 (08:48→20:35)
[2019-03-14] MEDS: MOMETASONE 0.24 GM INHALER INH SCH ×2 (08:48→20:36)
[2019-03-14] MEDS: FOLIC ACID 1 MG TAB PO SCH (08:48)
[2019-03-14] MEDS: ENOXAPARIN 40 MG/0.4 ML SYG SC SCH (08:53)
[2019-03-14] MEDS: TRIAMCINOLONE ACET 0.025% 15 GM OINT TOP SCH ×3 (09:47→20:36)
--- NOTE | 2019-03-14 11:00 | CONS ---
Consult Date/Type/Reason Admit Date/Time Mar 12, 2019 at 18:53 Initial Consult Date 03/13/19 Type of Consult Pulmonary Date/Time of Note DATE: 03/14/19 TIME: 10:58 Subjective Patient appears comfortable this morning no respiratory distress. States he will need placement. Objective Vital Signs Date Temp Pulse Resp B/P (MAP) Pulse Ox O2 O2 Flow FiO2 Time Delivery Rate 03/14/19 97.5 89 19 138/72 95 07:20 (94) 03/14/19 Nasal 2.0 05:28 Cannula 03/14/19 30 02:15 Intake and Output 03/13/19 03/13/19 03/14/19 1515:00 23:00 07:00 IntakeIntake Total 1500 ml BalanceBalance 1500 ml Exam GENERAL: Morbidly obese young gentleman comfortable at rest no acute distress VITAL SIGNS: per chart NECK: Supple. No JVD or lymphadenopathy. CARDIAC EXAM: S1, S2. No added sounds or murmurs. CHEST: clear bilaterally, No added sounds, rales or wheezes ABDOMEN: Soft, nontender. No guarding or rebound. EXTREMITIES: No cyanosis, clubbing edema +4 anasarca. Multiple lesions lower extremities NEUROLOGIC: Generalized weakness. No focal deficits. Results/Medications Result Diagram: 03/14/19 0548 03/14/19 0548 Results 24 hrs Laboratory Tests Test 03/13/19 16:00 03/14/19 05:48 Urine Color YELLOW Urine Clarity CLEAR Urine pH 6.0 Urine Specific [place] 1.012 Urine Ketones NEGATIVE Urine Nitrite NEGATIVE Urine Bilirubin NEGATIVE Urine Urobilinogen NEGATIVE Urine Leukocyte Esterase NEGATIVE Urine Hemoglobin NEGATIVE Urine Glucose NEGATIVE Urine Total Protein NEGATIVE White Blood Count 15.7 H Red Blood Count 4.30 L Hemoglobin 10.1 L Hematocrit 35.4 L Mean Corpuscular Volume 82.3 Mean Corpuscular Hemoglobin 23.5 L Mean Corpuscular Hemoglobin Concent 28.5 L Red Cell Distribution Width 21.9 H Platelet Count 318 Mean Platelet Volume 9.2 Immature Granulocytes % 0.600 H Neutrophils % 82.2 H Lymphocytes % 9.8 L Monocytes % 6.1 Eosinophils % 1.1 Basophils % 0.2 Nucleated Red Blood Cells % 0.0 Immature Granulocytes # 0.100 H Neutrophils # 12.9 H Lymphocytes # 1.5 Monocytes # 1.0 H Eosinophils # 0.2 Basophils # 0.0 Nucleated Red Blood Cells # 0.0 Sodium Level 139 Potassium Level 4.5 Chloride Level 97 Carbon Dioxide Level 33 H Anion Gap 9 Blood Urea Nitrogen 15 Creatinine 0.59 L Est Glomerular Filtrat Rate mL/min > 60 Glucose Level 158 Calcium Level 8.9 Phosphorus Level 3.6 Magnesium Level 1.8 Medications Current Medications IV Flush (NS 3 ml) 3 ml PER PROTOCOL IV ; Start 03/12/19 at 22:30 Ondansetron HCl (Zofran Inj) 4 mg Q6H PRN IV NAUSEA/VOMITING; Start 03/12/19 at 22:30 Acetaminophen (Tylenol Tab) 650 mg Q6H PRN PO .PAIN 1-3 OR TEMP; Start 03/12/19 at 22:30 Enoxaparin Sodium (Lovenox) 40 mg DAILY SC Last administered on 03/14/19 08:53; Admin Dose 40 MG; Start 03/13/19 at 09:00 Albuterol/ Ipratropium (Duoneb) 3 ml Q2H RESP THERAPY PRN HHN SHORTNESS OF BREATH Last administered on 03/14/19 05:28; Admin Dose 3 ML; Start 03/12/19 at 22:30 Mometasone Furoate (Asmanex) 1 puff BID INH Last administered on 03/14/19 0 8:48; Admin Dose 1 PUFF; Start 03/13/19 at 09:00 Morphine Sulfate (morphine) 3 mg Q4H PRN IV SEVERE PAIN LEVEL 7-10 Last administered on 03/14/19 07:45; Admin Dose 3 MG; Start 03/13/19 at 07:00 Atorvastatin Calcium (Lipitor) 40 mg QHS PO Last administered on 03/13/19 21:48; Admin Dose 40 MG; Start 03/13/19 at 21:00 Folic Acid (Folic Acid) 1 mg DAILY PO Last administered on 03/14/19 08:48; Ad min Dose 1 MG; Start 03/13/19 at 09:00 Losartan Potassium (Cozaar) 50 mg DAILY PO Last administered on 03/14/19 08:48; Admin Dose 50 MG; Start 03/13/19 at 09:00 Prednisone (Prednisone) 20 mg BID PO Last administered on 03/14/19 08:48; Admin Dose 20 MG; Start 03/13/19 at 09:00 Triamcinolone Acetonide (Kenalog 0.025% Oint) 1 applic TID TOP Last administered on 03/14/19at 09:47; Admin Dose 1 APPLIC; Start 03/13/19 at 09:00 Levofloxacin/ Dextrose 150 ml @ 100 mls/hr Q24H IVPB Last administered on 03/13/19at 11:45; Admin Dose 100 MLS/HR; Start 03/13/19 at 11:00 Miscellaneous Information Patients own medicat... BID@10,16 XX ; Start 03/14/19 at 10:00 Assessment/Plan Hospital Course (Demo Recall) Assessment 1. Acute bronchitis possible COPD 2. Obstructive sleep apnea with likely alveolar hypoventilation and hypoxemia 3. Morbid obesity with lower extremity venous stasis 4. Multiple lower extremity wounds Plan 1. Supplemental O2 2. Home bilevel device 3. Wound care 4. Antibiotics per primary team. DC planning. BRIGETTE CODY MD, [facility]P Mar 14, 2019 11:00
[2019-03-14] MEDS: LEVOFLOXACIN 750MG/D5W (PMX) 150 ML IVPB SCH (11:27)
--- NOTE | 2019-03-14 11:31 | PN ---
Date/Time of Note Date/Time of Note DATE: 03/14/19 TIME: 11:30 Assessment/Plan VTE Prophylaxis Risk score (from Nsg)>0 risk: 4 Pharmacological prophylaxis: LMWH Lines/Catheters IV Catheter Type (from Nrsg): Saline Lock Urinary Cath still in place: No Assessment/Plan Hospital Course 1. Shortness of breath, secondary to JANA and obesity hypoventilation syndrome -Patient with a history of respiratory failure requiring tracheostomy here in 2017 -Supplemental oxygen, bronchodilators -As needed BiPAP -Pulmonary consult appreciated -Patient is too large for CT scan 2. SIRS with possible sepsis: Presented with leukocytosis and tachycardia: Chest x-ray with possible atypical infectious process -Will treat with antibiotic -Given chest x-ray with possible edema, caution about fluid 3. Hypertension: Adjust BP meds as needed 4. Morbid obesity with a BMI of 64: Patient has a motorized scooter -Patient seems to be unable to care for self -online merchandising manager/social work consult Prophylaxis: Lovenox DC planning: Follow-up social work manager and case management associate evaluations, patient likely requires placement in a facility Result Diagram: 03/14/19 0548 03/14/19 0548 Results 24hrs Laboratory Tests Test 03/13/19 16:00 03/14/19 05:48 Urine Color YELLOW Urine Clarity CLEAR Urine pH 6.0 Urine Specific [place] 1.012 Urine Ketones NEGATIVE Urine Nitrite NEGATIVE Urine Bilirubin NEGATIVE Urine Urobilinogen NEGATIVE Urine Leukocyte Esterase NEGATIVE Urine Hemoglobin NEGATIVE Urine Glucose NEGATIVE Urine Total Protein NEGATIVE White Blood Count 15.7 H Red Blood Count 4.30 L Hemoglobin 10.1 L Hematocrit 35.4 L Mean Corpuscular Volume 82.3 Mean Corpuscular Hemoglobin 23.5 L Mean Corpuscular Hemoglobin Concent 28.5 L Red Cell Distribution Width 21.9 H Platelet Count 318 Mean Platelet Volume 9.2 Immature Granulocytes % 0.600 H Neutrophils % 82.2 H Lymphocytes % 9.8 L Monocytes % 6.1 Eosinophils % 1.1 Basophils % 0.2 Nucleated Red Blood Cells % 0.0 Immature Granulocytes # 0.100 H Neutrophils # 12.9 H Lymphocytes # 1.5 Monocytes # 1.0 H Eosinophils # 0.2 Basophils # 0.0 Nucleated Red Blood Cells # 0.0 Sodium Level 139 Potassium Level 4.5 Chloride Level 97 Carbon Dioxide Level 33 H Anion Gap 9 Blood Urea Nitrogen 15 Creatinine 0.59 L Est Glomerular Filtrat Rate mL/min > 60 Glucose Level 158 Calcium Level 8.9 Phosphorus Level 3.6 Magnesium Level 1.8 Subjective 24 Hr Interval Summary Constitutional: no complaints Exam/Review of Systems Exam Vitals Vital Signs Date Temp Pulse Resp B/P (MAP) Pulse Ox O2 O2 Flow FiO2 Time Delivery Rate 03/14/19 97.5 89 19 138/72 95 07:20 (94) 03/14/19 Nasal 2.0 05:28 Cannula 03/14/19 30 02:15 Intake and Output 03/13/19 03/13/19 03/14/19 1515:00 23:00 07:00 IntakeIntake Total 1500 ml BalanceBalance 1500 ml Constitutional: alert Respiratory: clear to auscultation Cardiovascular: regular rate and rhythm Gastrointestinal: soft; No distended Musculoskeletal: nl extremities to inspection Results Results 24hrs Laboratory Tests Test 03/13/19 16:00 03/14/19 05:48 Urine Color YELLOW Urine Clarity CLEAR Urine pH 6.0 Urine Specific [place] 1.012 Urine Ketones NEGATIVE Urine Nitrite NEGATIVE Urine Bilirubin NEGATIVE Urine Urobilinogen NEGATIVE Urine Leukocyte Esterase NEGATIVE Urine Hemoglobin NEGATIVE Urine Glucose NEGATIVE Urine Total Protein NEGATIVE White Blood Count 15.7 H Red Blood Count 4.30 L Hemoglobin 10.1 L Hematocrit 35.4 L Mean Corpuscular Volume 82.3 Mean Corpuscular Hemoglobin 23.5 L Mean Corpuscular Hemoglobin Concent 28.5 L Red Cell Distribution Width 21.9 H Platelet Count 318 Mean Platelet Volume 9.2 Immature Granulocytes % 0.600 H Neutrophils % 82.2 H Lymphocytes % 9.8 L Monocytes % 6.1 Eosinophils % 1.1 Basophils % 0.2 Nucleated Red Blood Cells % 0.0 Immature Granulocytes # 0.100 H Neutrophils # 12.9 H Lymphocytes # 1.5 Monocytes # 1.0 H Eosinophils # 0.2 Basophils # 0.0 Nucleated Red Blood Cells # 0.0 Sodium Level 139 Potassium Level 4.5 Chloride Level 97 Carbon Dioxide Level 33 H Anion Gap 9 Blood Urea Nitrogen 15 Creatinine 0.59 L Est Glomerular Filtrat Rate mL/min > 60 Glucose Level 158 Calcium Level 8.9 Phosphorus Level 3.6 Magnesium Level 1.8 Medications Medication Current Medications IV Flush (NS 3 ml) 3 ml PER PROTOCOL IV ; Start 03/12/19 at 22:30 Ondansetron HCl (Zofran Inj) 4 mg Q6H PRN IV NAUSEA/VOMITING; Start 03/12/19 at 22:30 Acetaminophen (Tylenol Tab) 650 mg Q6H PRN PO .PAIN 1-3 OR TEMP; Start 03/12/19 at 22:30 Enoxaparin Sodium (Lovenox) 40 mg DAILY SC Last administered on 03/14/19 08:53; Admin Dose 40 MG; Start 03/13/19 at 09:00 Albuterol/ Ipratropium (Duoneb) 3 ml Q2H RESP THERAPY PRN HHN SHORTNESS OF SAHRA TH Last administered on 03/14/19 05:28; Admin Dose 3 ML; Start 03/12/19 at 22:30 Mometasone Furoate (Asmanex) 1 puff BID INH Last administered on 03/14/19 08:48; Admin Dose 1 PUFF; Start 03/13/19 at 09:00 Morphine Sulfate (morphine) 3 mg Q4H PRN IV SEVERE PAIN LEVEL 7-10 Last administered on 03/14/19 07:45; Admin Dose 3 MG; Start 03/13/19 at 07:00 Atorvastatin Calcium (Lipitor) 40 mg QHS PO Last administered on 03/13/19 21:48; Admin Dose 40 MG; Start 03/13/19 at 21:00 Folic Acid (Folic Acid) 1 mg DAILY PO Last administered on 03/14/19 08:48; Admin Dose 1 MG; Start 03/13/19 at 09:00 Losartan Potassium (Cozaar) 50 mg DAILY PO Last administered on 03/14/19 08:48; Admin Dose 50 MG; Start 03/13/19 at 09:00 Prednisone (Prednisone) 20 mg BID PO Last administered on 03/14/19 08:48; Ad min Dose 20 MG; Start 03/13/19 at 09:00 Triamcinolone Acetonide (Kenalog 0.025% Oint) 1 applic TID TOP Last administered on 03/14/19 09:47; Admin Dose 1 APPLIC; Start 03/13/19 at 09:00 Levofloxacin/ Dextrose 150 ml @ 100 mls/hr Q24H IVPB Last administered on 03/14/19 11:27; Admin Dose 100 MLS/HR; Start 03/13/19 at 11:00 Miscellaneous Information Patients own medicat... BID@ XX ; Start 03/14/19 at 10:00 TAMRA JOHNSON Mar 14, 2019 11:31
[2019-03-14] MEDS: ATORVASTATIN 40 MG TAB PO SCH (20:35)
[2019-03-15] VITALS (7 sets, daily range): BP systolic 114–164; BP diastolic 64–77; PULSE 88–116; RESP 19–21
[2019-03-15] MEDS: morphine 4 MG/ML VIAL IV PRN ×3 (01:28→23:19)
[2019-03-15] MEDS ORDERED: DIPHENHYDRAMINE 50 MG INJ IV ONE (03:30)
[2019-03-15] MEDS: MOMETASONE 0.24 GM INHALER INH SCH ×2 (09:10→20:52)
[2019-03-15] MEDS: ENOXAPARIN 40 MG/0.4 ML SYG SC SCH (09:11)
[2019-03-15] MEDS: predniSONE 20 MG TAB PO SCH (09:12)
[2019-03-15] MEDS: FOLIC ACID 1 MG TAB PO SCH (09:12)
[2019-03-15] MEDS: LOSARTAN 50 MG TAB PO SCH (09:12)
[2019-03-15] MEDS: DIPHENHYDRAMINE 25 MG CAP PO PRN ×2 (09:12→19:35)
[2019-03-15] MEDS: TRIAMCINOLONE ACET 0.025% 15 GM OINT TOP SCH ×3 (09:15→23:14)
--- NOTE | 2019-03-15 12:08 | CONS ---
Consult Date/Type/Reason Admit Date/Time Mar 12, 2019 at 18:53 Initial Consult Date 03/13/19 Type of Consult Pulmonary Date/Time of Note DATE: 03/15/19 TIME: 12:08 Subjective No shortness of breath. Sitting up in mobile wheelchair. No respiratory distress. Objective Vital Signs Date Temp Pulse Resp B/P (MAP) Pulse Ox O2 O2 Flow FiO2 Time Delivery Rate 03/15/19 98.1 88 20 144/66 98 11:57 (92) 03/15/19 Nasal 3.0 07:30 Cannula 03/14/19 30 21:18 Intake and Output 03/14/19 03/14/19 03/15/19 1515:00 23:00 07:00 IntakeIntake Total 150 ml 1080 ml 1000 ml OutputOutput Total 1250 ml 1000 ml BalanceBalance 150 ml -170 ml 0 ml Exam GENERAL: Morbidly obese young gentleman comfortable at rest no acute distress VITAL SIGNS: per chart NECK: Supple. No JVD or lymphadenopathy. CARDIAC EXAM: S1, S2. No added sounds or murmurs. CHEST: clear bilaterally, No added sounds, rales or wheezes ABDOMEN: Soft, nontender. No guarding or rebound. EXTREMITIES: No cyanosis, clubbing edema +4 anasarca. Multiple lesions lower extremities NEUROLOGIC: Generalized weakness. No focal deficits. Results/Medications Result Diagram: 03/15/19 0605 03/14/19 0548 Results 24 hrs Laboratory Tests Test 03/15/19 06:05 White Blood Count 13.6 H Red Blood Count 4.31 L Hemoglobin 10.1 L Hematocrit 35.1 L Mean Corpuscular Volume 81.4 L Mean Corpuscular Hemoglobin 23.4 L Mean Corpuscular Hemoglobin Concent 28.8 L Red Cell Distribution Width 22.1 H Platelet Count 231 # Mean Platelet Volume 11.1 #H Immature Granulocytes % 0.600 H Neutrophils % 81.1 H Lymphocytes % 10.9 L Monocytes % 5.6 Eosinophils % 1.4 Basophils % 0.4 Nucleated Red Blood Cells % 0.0 Immature Granulocytes # 0.080 H Neutrophils # 11.1 H Lymphocytes # 1.5 Monocytes # 0.8 Eosinophils # 0.2 Basophils # 0.1 Nucleated Red Blood Cells # 0.0 Medications Current Medications IV Flush (NS 3 ml) 3 ml PER PROTOCOL IV ; Start 03/12/19 at 22:30 Ondansetron HCl (Zofran Inj) 4 mg Q6H PRN IV NAUSEA/VOMITING; Start 03/12/19 at 22:30 Acetaminophen (Tylenol Tab) 650 mg Q6H PRN PO .PAIN 1-3 OR TEMP; Start 03/12/19 at 22:30 Enoxaparin Sodium (Lovenox) 40 mg DAILY SC Last administered on 03/15/19 09:11; Admin Dose 40 MG; Start 03/13/19 at 09:00 Albuterol/ Ipratropium (Duoneb) 3 ml Q2H RESP THERAPY PRN HHN SHORTNESS OF BREATH Last administered on 03/14/19 21:03; Admin Dose 3 ML; Start 03/12/19 at 22:30 Mometasone Furoate (Asmanex) 1 puff BID INH Last administered on 03/15/19 09:10; Admin Dose 1 PUFF; Start 03/13/19 at 09:00 Morphine Sulfate (morphine) 3 mg Q4H PRN IV SEVERE PAIN LEVEL 7-10 Last administered on 03/15/19 01:28; Admin Dose 3 MG; Start 03/13/19 at 07:00 Atorvastatin Calcium (Lipitor) 40 mg QHS PO Last administered on 03/14/19 20:35; Admin Dose 40 MG; Start 03/13/19 at 21:00 Folic Acid (Folic Acid) 1 mg DAILY PO Last administered on 03/15/19 09:12; Admin Dose 1 MG; Start 03/13/19 at 09:00 Losartan Potassium (Cozaar) 50 mg DAILY PO Last administered on 03/15/19 09:12; Admin Dose 50 MG; Start 03/13/19 at 09:00 Prednisone (Prednisone) 20 mg BID PO Last administered on 03/15/19 09:12; Admin Dose 20 MG; Start 03/13/19 at 09:00 Triamcinolone Acetonide (Kenalog 0.025% Oint) 1 applic TID TOP Last admini stered on 03/15/19 09:15; Admin Dose 1 APPLIC; Start 03/13/19 at 09:00 Levofloxacin/ Dextrose 150 ml @ 100 mls/hr Q24H IVPB Last administered on 03/14/19 11:27; Admin Dose 100 MLS/HR; Start 03/13/19 at 11:00 Miscellaneous Information Patients own medicat... BID@10,16 XX Last administered on 03/15/19at 10:05; Admin Dose 1 EA; Start 03/14/19 at 10:00 Diphenhydramine HCl (Benadryl) 25 mg Q6H PRN PO ITCHING Last administered on 03/15/19at 09:12; Admin Dose 25 MG; Start 03/15/19 at 03:30 Assessment/Plan Hospital Course (Demo Recall) Assessment 1. Acute bronchitis possible COPD 2. Obstructive sleep apnea with likely alveolar hypoventilation and hypoxemia 3. Morbid obesity with lower extremity venous stasis 4. Multiple lower extremity wounds Plan 1. Supplemental O2 2. Home bilevel device 3. Wound care 4. Antibiotics per primary team. Transfer to [facility] planning. BRIGETTE CODY MD, [facility] Mar 15, 2019 12:08
[2019-03-15] MEDS: LEVOFLOXACIN 750MG/D5W (PMX) 150 ML IVPB SCH (16:12)
[2019-03-15] MEDS: ALBUTEROL/IPRATROPIUM (NEB) 3 ML AMP HHN PRN (17:47)
--- NOTE | 2019-03-15 19:16 | PN ---
Date/Time of Note Date/Time of Note DATE: 03/15/19 TIME: 19:13 Assessment/Plan VTE Prophylaxis Risk score (from Ns)>0 risk: 4 SCD applied (from Nsg): Yes Pharmacological prophylaxis: LMWH Lines/Catheters IV Catheter Type (from Nrsg): Saline Lock Urinary Cath still in place: No Assessment/Plan Hospital Course 1. Shortness of breath, secondary to JANA and obesity hypoventilation syndrome -Patient with a history of respiratory failure requiring tracheostomy here in 2017 -Supplemental oxygen, bronchodilators, DC prednisone -As needed BiPAP -Pulmonary consult appreciated -Patient is too large for CT scan 2. SIRS with possible sepsis: Presented with leukocytosis and tachycardia: C hest x-ray with possible atypical infectious process -Will treat with antibiotic -Given chest x-ray with possible edema, caution about fluid 3. Hypertension: Adjust BP meds as needed 4. Morbid obesity with a BMI of 64: Patient has a motorized scooter -Patient seems to be unable to care for self -partner manager/social work consult Prophylaxis: Lovenox DC planning: Follow-up high school social studies teacher and dependency case manager evaluations, patient likely requires placement in a facility, patient cleared for DC per pulmonology patient does not feel comfortable being discharged home at this time and prefers a temporary placement in a facility as he states that he needs additional care Result Diagram: 03/15/19 0605 03/14/19 0548 Results 24hrs Laboratory Tests Test 03/15/19 06:05 White Blood Count 13.6 H Red Blood Count 4.31 L Hemoglobin 10.1 L Hematocrit 35.1 L Mean Corpuscular Volume 81.4 L Mean Corpuscular Hemoglobin 23.4 L Mean Corpuscular Hemoglobin Concent 28.8 L Red Cell Distribution Width 22.1 H Platelet Count 231 # Mean Platelet Volume 11.1 #H Immature Granulocytes % 0.600 H Neutrophils % 81.1 H Lymphocytes % 10.9 L Monocytes % 5.6 Eosinophils % 1.4 Basophils % 0.4 Nucleated Red Blood Cells % 0.0 Immature Granulocytes # 0.080 H Neutrophils # 11.1 H Lymphocytes # 1.5 Monocytes # 0.8 Eosinophils # 0.2 Basophils # 0.1 Nucleated Red Blood Cells # 0.0 Subjective 24 Hr Interval Summary Respiratory: shortness of breath Exam/Review of Systems Exam Vitals Vital Signs Date Temp Pulse Resp B/P (MAP) Pulse Ox O2 O2 Flow FiO2 Time Delivery Rate 03/15/19 100 20 Nasal 3.0 18:37 Cannula 03/15/19 98.5 131/65 90 15:58 (87) 03/14/19 30 21:18 Intake and Output 03/14/19 03/14/19 03/15/19 1515:00 23:00 07:00 IntakeIntake Total 150 ml 1080 ml 1000 ml OutputOutput Total 1250 ml 1000 ml BalanceBalance 150 ml -170 ml 0 ml Constitutional: alert, oriented Respiratory: clear to auscultation Cardiovascular: regular rate and rhythm Gastrointestinal: soft; No distended Musculoskeletal: nl extremities to inspection Results Results 24hrs Laboratory Tests Test 03/15/19 06:05 White Blood Count 13.6 H Red Blood Count 4.31 L Hemoglobin 10.1 L Hematocrit 35.1 L Mean Corpuscular Volume 81.4 L Mean Corpuscular Hemoglobin 23.4 L Mean Corpuscular Hemoglobin Concent 28.8 L Red Cell Distribution Width 22.1 H Platelet Count 231 # Mean Platelet Volume 11.1 #H Immature Granulocytes % 0.600 H Neutrophils % 81.1 H Lymphocytes % 10.9 L Monocytes % 5.6 Eosinophils % 1.4 Basophils % 0.4 Nucleated Red Blood Cells % 0.0 Immature Granulocytes # 0.080 H Neutrophils # 11.1 H Lymphocytes # 1.5 Monocytes # 0.8 Eosinophils # 0.2 Basophils # 0.1 Nucleated Red Blood Cells # 0.0 Medications Medication Current Medications IV Flush (NS 3 ml) 3 ml PER PROTOCOL IV ; Start 03/12/19 at 22:30 Ondansetron HCl (Zofran Inj) 4 mg Q6H PRN IV NAUSEA/VOMITING; Start 03/12/19 at 22:30 Acetaminophen (Tylenol Tab) 650 mg Q6H PRN PO .PAIN 1-3 OR TEMP; Start 03/12/19 at 22:30 Enoxaparin Sodium (Lovenox) 40 mg DAILY SC Last administered on 03/15/19at 09:11; Admin Dose 40 MG; Start 03/13/19 at 09:00 Albuterol/ Ipratropium (Duoneb) 3 ml Q2H RESP THERAPY PRN HHN SHORTNESS OF BREATH Last administered on 03/15/19at 17:47; Admin Dose 3 ML; Start 03/12/19 at 22:30 Mometasone Furoate (Asmanex) 1 puff BID INH Last administered on 03/15/19 09 :10; Admin Dose 1 PUFF; Start 03/13/19 at 09:00 Morphine Sulfate (morphine) 3 mg Q4H PRN IV SEVERE PAIN LEVEL 7-10 Last administered on 03/15/19 16:19; Admin Dose 3 MG; Start 03/13/19 at 07:00 Atorvastatin Calcium (Lipitor) 40 mg QHS PO Last administered on 03/14/19 20:35; Admin Dose 40 MG; Start 03/13/19 at 21:00 Folic Acid (Folic Acid) 1 mg DAILY PO Last administered on 03/15/19 09:12; Adm in Dose 1 MG; Start 03/13/19 at 09:00 Losartan Potassium (Cozaar) 50 mg DAILY PO Last administered on 03/15/19 09:12; Admin Dose 50 MG; Start 03/13/19 at 09:00 Prednisone (Prednisone) 20 mg BID PO Last administered on 03/15/19 09:12; Admin Dose 20 MG; Start 03/13/19 at 09:00 Levofloxacin/ Dextrose 150 ml @ 100 mls/hr Q24H IVPB Last administered on 03/15/19 16:12; Admin Dose 100 MLS/HR; Start 03/13/19 at 11:00 Miscellaneous Information Patients own medicat... BID@10,16 XX Last administere d on 03/15/19 16:15; Admin Dose 1 EA; Start 03/14/19 at 10:00 Diphenhydramine HCl (Benadryl) 25 mg Q6H PRN PO ITCHING Last administered on 03/15/19 09:12; Admin Dose 25 MG; Start 03/15/19 at 03:30 Non-Formulary Medication 1 ea TID TOP ; Start 03/15/19 at 21:00 TAMRA JOHNSON Mar 15, 2019 19:16
[2019-03-15] MEDS: ATORVASTATIN 40 MG TAB PO SCH (20:52)
[2019-03-15] MEDS ORDERED: TRIAMCINOLONE ACET 0.025% 15 GM OINT TOP SCH (21:00)
[2019-03-16 01:22] VITALS: PULSE 102
[2019-03-16] MEDS ORDERED: GUAIFENESIN/CODEINE 5ML CUP PO PRN (03:30)
[2019-03-16] MEDS: DIPHENHYDRAMINE 25 MG CAP PO PRN ×2 (04:54→14:34)
[2019-03-16 07:17] VITALS: BP 134/67; PULSE 116; RESP 18
[2019-03-16] MEDS: FOLIC ACID 1 MG TAB PO SCH (08:29)
[2019-03-16] MEDS: TRIAMCINOLONE ACET 0.025% 15 GM OINT TOP SCH ×3 (08:29→21:20)
[2019-03-16] MEDS: LOSARTAN 50 MG TAB PO SCH (08:30)
[2019-03-16] MEDS: MOMETASONE 0.24 GM INHALER INH SCH ×2 (08:30→21:18)
[2019-03-16] MEDS: morphine 4 MG/ML VIAL IV PRN (08:32)
[2019-03-16] MEDS: ENOXAPARIN 40 MG/0.4 ML SYG SC SCH (08:47)
[2019-03-16] MEDS: LEVOFLOXACIN 750MG/D5W (PMX) 150 ML IVPB SCH (11:36)
[2019-03-16 11:41] VITALS: BP 118/75; PULSE 112; RESP 21
--- NOTE | 2019-03-16 14:36 | CONS ---
Consult Date/Type/Reason Admit Date/Time Mar 12, 2019 at 18:53 Initial Consult Date 03/13/19 Type of Consult Pulmonary Date/Time of Note DATE: 03/16/19 TIME: 14:29 Subjective Patient stable this morning no respiratory distress. Objective Vital Signs Date Temp Pulse Resp B/P (MAP) Pulse Ox O2 O2 Flow FiO2 Time Delivery Rate 03/16/19 98.1 112 21 118/75 98 11:41 (89) 03/16/19 3.0 10:26 03/16/19 Nasal 07:20 Cannula 03/16/19 30 01:22 Intake and Output 03/15/19 03/15/19 03/16/19 1515:00 23:00 07:00 IntakeIntake Total 2050 ml OutputOutput Total 300 ml 450 ml BalanceBalance -300 ml 1600 ml Exam GENERAL: Morbidly obese young gentleman comfortable at rest no acute distress VITAL SIGNS: per chart NECK: Supple. No JVD or lymphadenopathy. CARDIAC EXAM: S1, S2. No added sounds or murmurs. CHEST: clear bilaterally, No added sounds, rales or wheezes ABDOMEN: Soft, nontender. No guarding or rebound. EXTREMITIES: No cyanosis, clubbing edema +4 anasarca. Multiple lesions lower extremities NEUROLOGIC: Generalized weakness. No focal deficits. Results/Medications Result Diagram: 03/15/1960403/14/19 0548 Medications Current Medications IV Flush (NS 3 ml) 3 ml PER PROTOCOL IV ; Start 03/12/19 at 22:30 Ondansetron HCl (Zofran Inj) 4 mg Q6H PRN IV NAUSEA/VOMITING; Start 03/12/19 at 22:30 Acetaminophen (Tylenol Tab) 650 mg Q6H PRN PO .PAIN 1-3 OR TEMP; Start 03/12/19 at 22:30 Enoxaparin Sodium (Lovenox) 40 mg DAILY SC Last administered on 03/16/19at 08:47; Admin Dose 40 MG; Start 03/13/19 at 09:00 Albuterol/ Ipratropium (Duoneb) 3 ml Q2H RESP THERAPY PRN HHN SHORTNESS OF BREATH Last administered on 03/15/19at 17:47; Admin Dose 3 ML; Start 03/12/19 at 22:30 Mometasone Furoate (Asmanex) 1 puff BID INH Last administered on 03/16/19 08:30; Admin Dose 1 PUFF; Start 03/13/19 at 09:00 Atorvastatin Calcium (Lipitor) 40 mg QHS PO Last administered on 03/15/19 20:52; Admin Dose 40 MG; Start 03/13/19 at 21:00 Folic Acid (Folic Acid) 1 mg DAILY PO Last administered on 03/16/19 08:29; Admin Dose 1 MG; Start 03/13/19 at 09:00 Losartan Potassium (Cozaar) 50 mg DAILY PO Last administered on 03/16/19 08:30; Admin Dose 50 MG; Start 03/13/19 at 09:00 Levofloxacin/ Dextrose 150 ml @ 100 mls/hr Q24H IVPB Last administered on 03/16/19 11:36; Admin Dose 100 MLS/HR; Start 03/13/19 at 11:00 Miscellaneous Information Patients own medicat... BID@10,16 XX Last administered on 03/15/19 16:15; Admin Dose 1 EA; Start 03/14/19 at 10:00 Diphenhydramine HCl (Benadryl) 25 mg Q6H PRN PO ITCHING Last administered on 03/16/19 04:54; Admin Dose 25 MG; Start 03/15/19 at 03:30 Non-Formulary Medication 1 ea TID TOP Last administered on 03/16/19 13:28; Admin Dose 1 EA; Start 03/15/19 at 21:00 Assessment/Plan Hospital Course (Demo Recall) Assessment 1. Acute bronchitis possible COPD 2. Obstructive sleep apnea with likely alveolar hypoventilation and hypoxemia 3. Morbid obesity with lower extremity venous stasis 4. Multiple lower extremity wounds Plan 1. Supplemental O2 2. Home bilevel device 3. Wound care 4. Antibiotics per primary team. Transfer to [facility] planning ? [facility]IG[facility] CODY MD, [facility] Mar 16, 2019 14:36
[2019-03-16 16:06] VITALS: BP 133/69; PULSE 104; RESP 20
--- NOTE | 2019-03-16 17:04 | PN ---
Date/Time of Note Date/Time of Note DATE: 03/16/19 TIME: 17:02 Assessment/Plan VTE Prophylaxis Risk score (from Nsg)>0 risk: 4 SCD applied (from Nsg): Yes Pharmacological prophylaxis: heparin Lines/Catheters IV Catheter Type (from Nrsg): Saline Lock Urinary Cath still in place: No Assessment/Plan Hospital Course EXAM Comfortable appearing Breathing nonlabored Morbid obesity Diffuse psoriasis lesions over legs and arms A/P: 48 yo male with morbid obesity, OHS and psoriasis here with SOB - Seems at his respiratory basleine - Continue BIPAP for OHS - Topical steroids for psoriasis, follow up as outpatient Dc to [facility]. Says he is unable to care for himself at home Result Diagram: 03/15/19 0605 03/14/19 0548 Subjective 24 Hr Interval Summary Free Text/Dictation Seems back to baseline from respiratory perspective Exam/Review of Systems Exam Vitals Vital Signs Date Temp Pulse Resp B/P (MAP) Pulse Ox O2 O2 Flow FiO2 Time Delivery Rate 03/16/19 98.0 104 20 133/69 90 16:06 (90) 03/16/19 3.0 10:26 03/16/19 Nasal 07:20 Cannula 03/16/19 30 01:22 Intake and Output 03/15/19 03/15/19 03/16/19 1515:00 23:00 07:00 IntakeIntake Total 2050 ml OutputOutput Total 300 ml 450 ml BalanceBalance -300 ml 1600 ml Medications Medication Current Medications IV Flush (NS 3 ml) 3 ml PER PROTOCOL IV ; Start 03/12/19 at 22:30 Ondansetron HCl (Zofran Inj) 4 mg Q6H PRN IV NAUSEA/VOMITING; Start 03/12/19 at 22:30 Acetaminophen (Tylenol Tab) 650 mg Q6H PRN PO .PAIN 1-3 OR TEMP; Start 03/12/19 at 22:30 Enoxaparin Sodium (Lovenox) 40 mg DAILY SC Last administered on 03/16/19at 08:47; Admin Dose 40 MG; Start 03/13/19 at 09:00 Albuterol/ Ipratropium (Duoneb) 3 ml Q2H RESP THERAPY PRN HHN SHORTNESS OF BREATH Last administered on 03/15/19at 17:47; Admin Dose 3 ML; Start 03/12/19 at 22:30 Mometasone Furoate (Asmanex) 1 puff BID INH Last administered on 03/16/19 08 :30; Admin Dose 1 PUFF; Start 03/13/19 at 09:00 Atorvastatin Calcium (Lipitor) 40 mg QHS PO Last administered on 03/15/19 20:52; Admin Dose 40 MG; Start 03/13/19 at 21:00 Folic Acid (Folic Acid) 1 mg DAILY PO Last administered on 03/16/19 08:29; Admin Dose 1 MG; Start 03/13/19 at 09:00 Losartan Potassium (Cozaar) 50 mg DAILY PO Last administered on 03/16/19 08:30; Admin Dose 50 MG; Start 03/13/19 at 09:00 Levofloxacin/ Dextrose 150 ml @ 100 mls/hr Q24H IVPB Last administered on 03/16/19 11:36; Admin Dose 100 MLS/HR; Start 03/13/19 at 11:00; Stop 03/16/19 at 19:00 Miscellaneous Information Patients own medicat... BID@10,16 XX Last administered on 03/15/19 16:15; Admin Dose 1 EA; Start 03/14/19 at 10:00 Diphenhydramine HCl (Benadryl) 25 mg Q6H PRN PO ITCHING Last administered on 03/16/19 14:34; Admin Dose 25 MG; Start 03/15/19 at 03:30 Non-Formulary Medication 1 ea TID TOP Last administered on 03/16/19 13:28; Admin Dose 1 EA; Start 03/15/19 at 21:00 Levofloxacin (Levaquin) 750 mg DAILY@06 PO ; Start 03/17/19 at 06:00 STEVEN MCNEAL MD Mar 16, 2019 17:04
[2019-03-16 20:00] VITALS: BP 130/71; PULSE 110; RESP 20
[2019-03-16] MEDS: ALBUTEROL/IPRATROPIUM (NEB) 3 ML AMP HHN PRN (20:44)
[2019-03-16] MEDS: ATORVASTATIN 40 MG TAB PO SCH (21:18)
[2019-03-16] MEDS ORDERED: HYDROCODONE/APAP (5/325) TAB PO PRN (22:10)
[2019-03-16 23:01] VITALS: PULSE 109
[2019-03-17] VITALS (7 sets, daily range): BP systolic 130–154; BP diastolic 63–74; PULSE 71–129; RESP 19–24
[2019-03-17] MEDS: LEVOFLOXACIN 750 MG TABLET PO SCH (06:32)
[2019-03-17] MEDS: LOSARTAN 50 MG TAB PO SCH (08:58)
[2019-03-17] MEDS: FOLIC ACID 1 MG TAB PO SCH (08:58)
[2019-03-17] MEDS: TRIAMCINOLONE ACET 0.025% 15 GM OINT TOP SCH ×3 (08:58→20:36)
[2019-03-17] MEDS: MOMETASONE 0.24 GM INHALER INH SCH ×2 (08:58→20:35)
[2019-03-17] MEDS: ENOXAPARIN 40 MG/0.4 ML SYG SC SCH (09:06)
--- NOTE | 2019-03-17 14:19 | PN ---
Date/Time of Note Date/Time of Note DATE: 03/17/19 TIME: 14:18 Assessment/Plan VTE Prophylaxis Risk score (from Nsg)>0 risk: 4 SCD applied (from Nsg): Yes Pharmacological prophylaxis: heparin Lines/Catheters IV Catheter Type (from Nrsg): Saline Lock Urinary Cath still in place: No Assessment/Plan Hospital Course EXAM Comfortable appearing Breathing nonlabored Morbid obesity Diffuse psoriasis lesions over legs and arms A/P: 48 yo male with morbid obesity, OHS and psoriasis here with SOB - Seems at his respiratory basleine - Continue BIPAP for OHS - Topical steroids for psoriasis, follow up as outpatient Dc to [facility]. Claims he is unable to care for himself at home independently Result Diagram: 03/15/19 0605 03/14/19 0548 Subjective 24 Hr Interval Summary Free Text/Dictation No change to clinical status Breathing comfortably Upset at lack of placement options Exam/Review of Systems Exam Vitals Vital Signs Date Temp Pulse Resp B/P (MAP) Pulse Ox O2 O2 Flow FiO2 Time Delivery Rate 03/17/19 114 93 40 09:50 03/17/19 Nasal 3.0 08:00 Cannula 03/17/19 98.6 20 133/74 07:37 (93) Intake and Output 03/16/19 03/16/19 03/17/19 1515:00 23:00 07:00 IntakeIntake Total 600 ml 2650 ml 1500 ml OutputOutput Total 700 ml 900 ml 750 ml BalanceBalance -100 ml 1750 ml 750 ml Medications Medication Current Medications IV Flush (NS 3 ml) 3 ml PER PROTOCOL IV ; Start 03/12/19 at 22:30 Ondansetron HCl (Zofran Inj) 4 mg Q6H PRN IV NAUSEA/VOMITING; Start 03/12/19 at 22:30 Acetaminophen (Tylenol Tab) 650 mg Q6H PRN PO .PAIN 1-3 OR TEMP; Start 03/12/19 at 22:30 Enoxaparin Sodium (Lovenox) 40 mg DAILY SC Last administered on 03/17/19at 09:06; Admin Dose 40 MG; Start 03/13/19 at 09:00 Albuterol/ Ipratropium (Duoneb) 3 ml Q2H RESP THERAPY PRN HHN SHORTNESS OF BREATH Last administered on 03/16/19at 20:44; Admin Dose 3 ML; Start 03/12/19 at 22:30 Mometasone Furoate (Asmanex) 1 puff BID INH Last administered on 03/17/19 08:58; Admin Dose 1 PUFF; Start 03/13/19 at 09:00 Atorvastatin Calcium (Lipitor) 40 mg QHS PO Last administered on 03/16/19 21:18; Admin Dose 40 MG; Start 03/13/19 at 21:00 Folic Acid (Folic Acid) 1 mg DAILY PO Last administered on 03/17/19 08:58; Admin Dose 1 MG; Start 03/13/19 at 09:00 Losartan Potassium (Cozaar) 50 mg DAILY PO Last administered on 03/17/19 08:58; Admin Dose 50 MG; Start 03/13/19 at 09:00 Miscellaneous Information Patients own medicat... BID@10,16 XX Last administered on 03/15/19 16:15; Admin Dose 1 EA; Start 03/14/19 at 10:00 Diphenhydramine HCl (Benadryl) 25 mg Q6H PRN PO ITCHING Last administered on 03/16/19 14:34; Admin Dose 25 MG; Start 03/15/19 at 03:30 Non-Formulary Medication 1 ea TID TOP Last administered on 03/17/19 13:03; Admin Dose 1 EA; Start 03/15/19 at 21:00 Levofloxacin (Levaquin) 750 mg DAILY@06 PO Last administered on 03/17/19 06:32; Admin Dose 750 MG; Start 03/17/19 at 06:00 Acetaminophen/ Hydrocodone Bitart ([place] (5/325)) 1 tab Q4H PRN PO MODERATE PAIN LEVEL 4-6; Start 03/16/19 at 22:10 STEVEN MCNEAL MD Mar 17, 2019 14:19
[2019-03-17] MEDS: GUAIFENESIN 20 MG/ML 5ML CUP PO PRN (20:35)
[2019-03-17] MEDS: ATORVASTATIN 40 MG TAB PO SCH (20:36)
[2019-03-18] VITALS (8 sets, daily range): BP systolic 115–140; BP diastolic 53–85; PULSE 82–125; RESP 18–22
[2019-03-18] MEDS: GUAIFENESIN 20 MG/ML 5ML CUP PO PRN ×2 (02:27→05:45)
[2019-03-18] MEDS: LEVOFLOXACIN 750 MG TABLET PO SCH (05:45)
[2019-03-18] MEDS: TRIAMCINOLONE ACET 0.025% 15 GM OINT TOP SCH ×3 (09:00→20:59)
[2019-03-18] MEDS: ENOXAPARIN 40 MG/0.4 ML SYG SC SCH (09:00)
[2019-03-18] MEDS: MOMETASONE 0.24 GM INHALER INH SCH ×2 (09:00→20:59)
[2019-03-18] MEDS: LOSARTAN 50 MG TAB PO SCH (09:00)
[2019-03-18] MEDS: FOLIC ACID 1 MG TAB PO SCH (09:00)
[2019-03-18] MEDS: NYSTATIN 30 GM POWDER BTL TOP SCH ×2 (13:30→20:59)
--- NOTE | 2019-03-18 13:32 | PN ---
Date/Time of Note Date/Time of Note DATE: 03/18/19 TIME: 13:31 Assessment/Plan VTE Prophylaxis Risk score (from Nsg)>0 risk: 4 SCD applied (from Nsg): Yes Pharmacological prophylaxis: heparin Lines/Catheters IV Catheter Type (from Nrsg): Saline Lock Urinary Cath still in place: No Assessment/Plan Hospital Course EXAM Comfortable appearing Breathing nonlabored Morbid obesity Diffuse psoriasis lesions over legs and arms A/P: 48 yo male with morbid obesity, OHS and psoriasis here with SOB - Seems at his respiratory basleine - Continue nocturnal BIPAP for OHS Psoriasis: - Will start systemic prednisone course - Topical steroids for psoriasis, follow up as outpatient Dc to [facility]. Claims he is unable to care for himself at home independently Result Diagram: 03/15/19 0605 03/14/19 0548 Subjective 24 Hr Interval Summary Free Text/Dictation Continues to complain of back pain Requesting systemic steroids for psoriasis Exam/Review of Systems Exam Vitals Vital Signs Date Temp Pulse Resp B/P (MAP) Pulse Ox O2 O2 Flow FiO2 Time Delivery Rate 03/18/19 98.7 111 18 127/74 98 Nasal 11:15 (91) Cannula 03/18/19 3.0 03:04 03/18/19 40 01:27 Intake and Output 03/17/19 03/17/19 03/18/19 1515:00 23:00 07:00 IntakeIntake Total 3500 ml 1350 ml OutputOutput Total 1200 ml 1100 ml BalanceBalance 2300 ml 250 ml Medications Medication Current Medications IV Flush (NS 3 ml) 3 ml PER PROTOCOL IV ; Start 03/12/19 at 22:30 Ondansetron HCl (Zofran Inj) 4 mg Q6H PRN IV NAUSEA/VOMITING; Start 03/12/19 at 22:30 Acetaminophen (Tylenol Tab) 650 mg Q6H PRN PO .PAIN 1-3 OR TEMP; Start 03/12/19 at 22:30 Enoxaparin Sodium (Lovenox) 40 mg DAILY SC Last administered on 03/18/19at 0 9:00; Admin Dose 40 MG; Start 03/13/19 at 09:00 Albuterol/ Ipratropium (Duoneb) 3 ml Q2H RESP THERAPY PRN HHN SHORTNESS OF BREATH Last administered on 03/16/19at 20:44; Admin Dose 3 ML; Start 03/12/19 at 22:30 Mometasone Furoate (Asmanex) 1 puff BID INH Last administered on 03/18/19 09:00; Admin Dose 1 PUFF; Start 03/13/19 at 09:00 Atorvastatin Calcium (Lipitor) 40 mg QHS PO Last administered on 03/17/19 20:36; Admin Dose 40 MG; Start 03/13/19 at 21:00 Folic Acid (Folic Acid) 1 mg DAILY PO Last administered on 03/18/19 09:00; Admin Dose 1 MG; Start 03/13/19 at 09:00 Losartan Potassium (Cozaar) 50 mg DAILY PO Last administered on 03/18/19 09:00; Admin Dose 50 MG; Start 03/13/19 at 09:00 Miscellaneous Information Patients own medicat... BID@10,16 XX Last administered on 03/15/19 16:15; Admin Dose 1 EA; Start 03/14/19 at 10:00 Diphenhydramine HCl (Benadryl) 25 mg Q6H PRN PO ITCHING Last administered on 03/16/19 14:34; Admin Dose 25 MG; Start 03/15/19 at 03:30 Non-Formulary Medication 1 ea TID TOP Last administered on 03/18/19 13:25; Admin Dose 1 EA; Start 03/15/19 at 21:00 Levofloxacin (Levaquin) 750 mg DAILY@06 PO Last administered on 03/18/19 05:45; Admin Dose 750 MG; Start 03/17/19 at 06:00 Acetaminophen/ Hydrocodone Bitart ([place] (5/325)) 1 tab Q4H PRN PO MODERATE PAIN LEVEL 4-6; Start 03/16/19 at 22:10 Guaifenesin (Robitussin Liquid Cup) 100 mg Q4H PRN PO COUGH Last administered on 03/18/19 05:45; Admin Dose 100 MG; Start 03/17/19 at 19:30 Prednisone (Prednisone) 40 mg DAILY PO ; Start 03/18/19 at 13:30 Nystatin (Nystatin Powder) 1 applic BID TOP ; Start 03/18/19 at 13:30 STEVEN MCNEAL MD Mar 18, 2019 13:32
[2019-03-18] MEDS: predniSONE 20 MG TAB PO SCH (14:28)
[2019-03-18] MEDS: ALBUTEROL/IPRATROPIUM (NEB) 3 ML AMP HHN PRN (15:55)
[2019-03-18] MEDS: ATORVASTATIN 40 MG TAB PO SCH (20:59)
[2019-03-18] MEDS: DIPHENHYDRAMINE 25 MG CAP PO PRN (20:59)
[2019-03-18] MEDS ORDERED: FUROSEMIDE 40 MG INJ IV ONE (22:00)
[2019-03-19] MEDS: DIPHENHYDRAMINE 25 MG CAP PO PRN ×3 (03:33→23:26)
[2019-03-19 03:38] VITALS: BP 130/71; PULSE 78; RESP 19
[2019-03-19] MEDS: LEVOFLOXACIN 750 MG TABLET PO SCH (05:49)
[2019-03-19 07:37] VITALS: BP 154/89; PULSE 108; RESP 20
[2019-03-19] MEDS: MOMETASONE 0.24 GM INHALER INH SCH ×2 (09:44→20:55)
[2019-03-19] MEDS: FOLIC ACID 1 MG TAB PO SCH (09:44)
[2019-03-19] MEDS: NYSTATIN 30 GM POWDER BTL TOP SCH ×2 (09:44→20:55)
[2019-03-19] MEDS: TRIAMCINOLONE ACET 0.025% 15 GM OINT TOP SCH ×3 (09:44→20:56)
[2019-03-19] MEDS: LOSARTAN 50 MG TAB PO SCH (09:45)
[2019-03-19] MEDS: ENOXAPARIN 40 MG/0.4 ML SYG SC SCH (09:48)
[2019-03-19] MEDS: predniSONE 20 MG TAB PO SCH (09:50)
[2019-03-19 11:15] VITALS: BP 126/82; PULSE 114; RESP 18
[2019-03-19 15:00] VITALS: BP 141/64; PULSE 110; RESP 18
[2019-03-19] MEDS ORDERED: METHOTREXATE 2.5 MG TAB PO SCH (16:00)
--- NOTE | 2019-03-19 16:58 | PN ---
Date/Time of Note Date/Time of Note DATE: 03/19/19 TIME: 16:57 Assessment/Plan VTE Prophylaxis Risk score (from Nsg)>0 risk: 7 SCD applied (from Nsg): Yes Pharmacological prophylaxis: heparin Lines/Catheters IV Catheter Type (from Nrsg): Saline Lock Urinary Cath still in place: No Assessment/Plan Hospital Course EXAM Comfortable appearing Breathing nonlabored Morbid obesity Diffuse psoriasis lesions over legs and arms A/P: 48 yo male with morbid obesity, OHS and psoriasis here with SOB - Seems at his respiratory basleine - Continue nocturnal BIPAP for OHS Psoriasis: - Will start systemic prednisone course and given methotrexate dose - Topical steroids for psoriasis, follow up as outpatient Diastolic CHF: - Lasix 20 PO BID Dc to [facility]. Claims he is unable to care for himself at home independently Result Diagram: 03/15/19 0605 Subjective 24 Hr Interval Summary Free Text/Dictation Still with dry couhg, XR showed edema started on lasix Requests methotrexate dose for psoriasis Exam/Review of Systems Exam Vitals Vital Signs Date Temp Pulse Resp B/P (MAP) Pulse Ox O2 O2 Flow FiO2 Time Delivery Rate 03/19/19 98.3 110 18 141/64 95 Nasal 15:00 (89) Cannula 03/19/19 4.0 10:06 03/18/19 40 15:56 Intake and Output 03/18/19 03/18/19 03/19/19 1515:00 23:00 07:00 IntakeIntake Total 2000 ml 1250 ml OutputOutput Total 980 ml 3300 ml BalanceBalance 1020 ml -2050 ml Medications Medication Current Medications IV Flush (NS 3 ml) 3 ml PER PROTOCOL IV ; Start 03/12/19 at 22:30 Ondansetron HCl (Zofran Inj) 4 mg Q6H PRN IV NAUSEA/VOMITING; Start 03/12/19 at 22:30 Acetaminophen (Tylenol Tab) 650 mg Q6H PRN PO .PAIN 1-3 OR TEMP; Start 03/12/19 at 22:30 Enoxaparin Sodium (Lovenox) 40 mg DAILY SC Last administered on 03/19/19at 09:48; Admin Dose 40 MG; Start 03/13/19 at 09:00 Albuterol/ Ipratropium (Duoneb) 3 ml Q2H RESP THERAPY PRN HHN SHORTNESS OF BREATH Last administered on 03/18/19 15:55; Admin Dose 3 ML; Start 03/12/19 at 22:30 Mometasone Furoate (Asmanex) 1 puff BID INH Last administered on 03/19/19 09:44; Admin Dose 1 PUFF; Start 03/13/19 at 09:00 Atorvastatin Calcium (Lipitor) 40 mg QHS PO Last administered on 03/18/19 20:59; Admin Dose 40 MG; Start 03/13/19 at 21:00 Folic Acid (Folic Acid) 1 mg DAILY PO Last administered on 03/19/19 09:44; Admin Dose 1 MG; Start 03/13/19 at 09:00 Losartan Potassium (Cozaar) 50 mg DAILY PO Last administered on 03/19/19 09:45; Admin Dose 50 MG; Start 03/13/19 at 09:00 Miscellaneous Information Patients own medicat... BID@10,16 XX Last administered on 03/18/19 16:27; Admin Dose 1 EA; Start 03/14/19 at 10:00 Diphenhydramine HCl (Benadryl) 25 mg Q6H PRN PO ITCHING Last administered on 03/19/19 11:35; Admin Dose 25 MG; Start 03/15/19 at 03:30 Non-Formulary Medication 1 ea TID TOP Last administered on 03/19/19 13:00; Admin Dose 1 EA; Start 03/15/19 at 21:00 Levofloxacin (Levaquin) 750 mg DAILY@06 PO Last administered on 03/19/19 05:49; Admin Dose 750 MG; Start 03/17/19 at 06:00 Acetaminophen/ Hydrocodone Bitart ([place] (5/325)) 1 tab Q4H PRN PO MODERATE PAIN LEVEL 4-6 Last administered on 03/18/19 18:35; Admin Dose 1 TAB; Start 03/16/19 at 22:10 Guaifenesin (Robitussin Liquid Cup) 100 mg Q4H PRN PO COUGH Last administered on 03/18/19 05:45; Admin Dose 100 MG; Start 03/17/19 at 19:30 Prednisone (Prednisone) 40 mg DAILY PO Last administered on 03/19/19 09:50; Admin Dose 40 MG; Start 03/18/19 at 13:30 Nystatin (Nystatin Powder) 1 applic BID TOP Last administered on 03/19/19at 09:44; Admin Dose 1 APPLIC; Start 03/18/19 at 13:30 Methotrexate (Methotrexate) 27.5 mg ONCE PO Last administered on 03/19/19at 16:45; Admin Dose 27.5 MG; Start 03/19/19 at 16:00; Stop 03/19/19 at 19:00 STEVEN MCNEAL MD Mar 19, 2019 16:58
[2019-03-19] MEDS: FUROSEMIDE 20 MG TAB PO SCH (19:05)
[2019-03-19 20:00] VITALS: BP 121/59; PULSE 98; RESP 19
[2019-03-19] MEDS: ATORVASTATIN 40 MG TAB PO SCH (20:55)
[2019-03-19] MEDS: ALBUTEROL/IPRATROPIUM (NEB) 3 ML AMP HHN PRN (21:24)
[2019-03-19] MEDS ORDERED: morphine 2 MG INJ IV ONE (22:33)
[2019-03-20 03:55] VITALS: BP 134/64; PULSE 98; RESP 22
[2019-03-20] MEDS: FUROSEMIDE 20 MG TAB PO SCH (05:21)
[2019-03-20] MEDS: LEVOFLOXACIN 750 MG TABLET PO SCH (05:21)
[2019-03-20] MEDS: DIPHENHYDRAMINE 25 MG CAP PO PRN ×2 (05:21→23:00)
[2019-03-20] MEDS: ALBUTEROL/IPRATROPIUM (NEB) 3 ML AMP HHN PRN ×2 (06:09→08:48)
[2019-03-20 07:57] VITALS: BP 144/67; PULSE 106; RESP 18
[2019-03-20] MEDS: predniSONE 20 MG TAB PO SCH (09:41)
[2019-03-20] MEDS: FOLIC ACID 1 MG TAB PO SCH (09:41)
[2019-03-20] MEDS: FUROSEMIDE 20 MG INJ IV SCH ×2 (09:41→18:26)
[2019-03-20] MEDS: LOSARTAN 50 MG TAB PO SCH (09:41)
[2019-03-20] MEDS: ENOXAPARIN 40 MG/0.4 ML SYG SC SCH (09:48)
[2019-03-20] MEDS: NYSTATIN 30 GM POWDER BTL TOP SCH ×2 (09:49→21:09)
[2019-03-20] MEDS: TRIAMCINOLONE ACET 0.025% 15 GM OINT TOP SCH ×3 (09:49→21:09)
[2019-03-20] MEDS: MOMETASONE 0.24 GM INHALER INH SCH ×2 (09:49→21:08)
[2019-03-20 12:25] VITALS: BP 146/66; PULSE 124; RESP 18
--- NOTE | 2019-03-20 12:40 | CONS ---
Consultation Date/Type/Reason Admit Date/Time Mar 12, 2019 at 18:53 Date/Time of Note DATE: 03/20/19 TIME: 12:40 Past Medical History Medical History: other (See HPI) Home Meds Reported Medications Triamcinolone Acetonide* (Kenalog*) 0.025%-15GM Oint, 1 APPLIC TOP TID, #1 EA 03/12/19 Prednisone* (Prednisone*) 20 Mg Tab, 20 MG PO BID, TAB 03/12/19 Methotrexate* (Methotrexate*) 2.5 Mg Tab, 27.5 MG PO for 7 Days, TAB 03/12/19 Metformin* (Glucophage*) 1,000 Mg Tablet, 1000 MG PO DAILY, #30 TAB 03/12/19 Losartan Potassium* (Losartan Potassium*) 50 Mg Tablet, 50 MG PO DAILY, TAB 03/12/19 Folic Acid* (Folic Acid*) 1 Mg Tablet, 1 MG PO DAILY, TAB 03/12/19 Cyanocobalamin/FA/Pyridoxine ([place] Tablet) 1 Each Tablet, 1 EACH PO DAILY, TAB 03/12/19 Atorvastatin* (Atorvastatin*) 40 Mg Tablet, 40 MG PO QHS, #30 TAB 03/12/19 Albuterol Sulfate* (Ventolin HFA*) 18 Gm Hfa.aer.ad, 1 PUFF INHALATION Q4H for dyspnea, #1 INHALER 03/12/19 Acetazolamide* (Acetazolamide* ER) 500 Mg Capsule.er, 500 MG PO TID, #60 CAP 03/12/19 Methotrexate* (Methotrexate*) Unknown Strength Tab, PO, TAB 10/15/17 Medications Current Medications IV Flush (NS 3 ml) 3 ml PER PROTOCOL IV ; Start 03/12/19 at 22:30 Ondansetron HCl (Zofran Inj) 4 mg Q6H PRN IV NAUSEA/VOMITING; Start 03/12/19 at 22:30 Acetaminophen (Tylenol Tab) 650 mg Q6H PRN PO .PAIN 1-3 OR TEMP; Start 03/12/19 at 22:30 Enoxaparin Sodium (Lovenox) 40 mg DAILY SC Last administered on 03/20/19at 09:48; Admin Dose 40 MG; Start 03/13/19 at 09:00 Albuterol/ Ipratropium (Duoneb) 3 ml Q2H RESP THERAPY PRN HHN SHORTNESS OF BREATH Last administered on 03/20/19 08:48; Admin Dose 3 ML; Start 03/12/19 at 22:30 Mometasone Furoate (Asmanex) 1 puff BID INH Last administered on 03/20/19 09:49; Admin Dose 1 PUFF; Start 03/13/19 at 09:00 Atorvastatin Calcium (Lipitor) 40 mg QHS PO Last administered on 03/19/19 20:55; Admin Dose 40 MG; Start 03/13/19 at 21:00 Folic Acid (Folic Acid) 1 mg DAILY PO Last administered on 03/20/19 09:41; Admin Dose 1 MG; Start 03/13/19 at 09:00 Losartan Potassium (Cozaar) 50 mg DAILY PO Last administered on 03/20/19 09:41; Admin Dose 50 MG; Start 03/13/19 at 09:00 Miscellaneous Information Patients own medicat... BID@10,16 XX Last administered on 03/18/19 16:27; Admin Dose 1 EA; Start 03/14/19 at 10:00 Diphenhydramine HCl (Benadryl) 25 mg Q6H PRN PO ITCHING Last administered on 03/20/19 05:21; Admin Dose 25 MG; Start 03/15/19 at 03:30 Non-Formulary Medication 1 ea TID TOP Last administered on 03/20/19 09:49; Admin Dose 1 EA; Start 03/15/19 at 21:00 Levofloxacin (Levaquin) 750 mg DAILY@06 PO Last administered on 03/20/19 05:21; Admin Dose 750 MG; Start 03/17/19 at 06:00 Acetaminophen/ Hydrocodone Bitart ([place] (5/325)) 1 tab Q4H PRN PO MODERATE PAIN LEVEL 4-6 Last administered on 03/18/19 18:35; Admin Dose 1 TAB; Start 03/16/19 at 22:10 Guaifenesin (Robitussin Liquid Cup) 100 mg Q4H PRN PO COUGH Last administered on 03/18/19 05:45; Admin Dose 100 MG; Start 03/17/19 at 19:30 Prednisone (Prednisone) 40 mg DAILY PO Last administered on 03/20/19 09:41; Admin Dose 40 MG; Start 03/18/19 at 13:30 Nystatin (Nystatin Powder) 1 applic BID TOP Last administered on 03/20/19 09:49; Admin Dose 1 APPLIC; Start 03/18/19 at 13:30 Furosemide (Lasix) 20 mg BID DIURETICS IV Last administered on 03/20/19 09:41; Admin Dose 20 MG; Start 03/20/19 at 09:30 Tramadol HCl (Ultram) 50 mg Q6H PRN PO MODERATE PAIN LEVEL 4-6; Start 03/20/19 at 12:30 Allergies: Coded Allergies: No Known Allergy (Unverified , 03/12/19) Past Surgical History Past Surgical Hx: other (See HPI) Social History Alcohol Use: none Smoking Status: Never smoker Drug Use: none Exam/Review of Systems Exam Vitals Vital Signs Date Temp Pulse Resp B/P (MAP) Pulse Ox O2 O2 Flow FiO2 Time Delivery Rate 03/20/19 98.3 124 18 146/66 98 Nasal 5.0 12:25 (92) Cannula 03/18/19 40 15:56 Intake and Output 03/19/19 03/19/19 03/20/19 1515:00 23:00 07:00 IntakeIntake Total 1200 ml OutputOutput Total 1000 ml BalanceBalance 200 ml Medications Medication Current Medications IV Flush (NS 3 ml) 3 ml PER PROTOCOL IV ; Start 03/12/19 at 22:30 Ondansetron HCl (Zofran Inj) 4 mg Q6H PRN IV NAUSEA/VOMITING; Start 03/12/19 at 22:30 Acetaminophen (Tylenol Tab) 650 mg Q6H PRN PO .PAIN 1-3 OR TEMP; Start 03/12/19 at 22:30 Enoxaparin Sodium (Lovenox) 40 mg DAILY SC Last administered on 03/20/19 09:48; Admin Dose 40 MG; Start 03/13/19 at 09:00 Albuterol/ Ipratropium (Duoneb) 3 ml Q2H RESP THERAPY PRN HHN SHORTNESS OF BREATH Last administered on 03/20/19 08:48; Admin Dose 3 ML; Start 03/12/19 at 22:30 Mometasone Furoate (Asmanex) 1 puff BID INH Last administered on 03/20/19 09:49; Admin Dose 1 PUFF; Start 03/13/19 at 09:00 Atorvastatin Calcium (Lipitor) 40 mg QHS PO Last administered on 03/19/19 20:55; Admin Dose 40 MG; Start 03/13/19 at 21:00 Folic Acid (Folic Acid) 1 mg DAILY PO Last administered on 03/20/19 09:41; Admin Dose 1 MG; Start 03/13/19 at 09:00 Losartan Potassium (Cozaar) 50 mg DAILY PO Last administered on 03/20/19 09:41; Admin Dose 50 MG; Start 03/13/19 at 09:00 Miscellaneous Information Patients own medicat... BID@10,16 XX Last administered on 03/18/19 16:27; Admin Dose 1 EA; Start 03/14/19 at 10:00 Diphenhydramine HCl (Benadryl) 25 mg Q6H PRN PO ITCHING Last administered on 03/20/19 05:21; Admin Dose 25 MG; Start 03/15/19 at 03:30 Non-Formulary Medication 1 ea TID TOP Last administered on 03/20/19 09:49; Admin Dose 1 EA; Start 03/15/19 at 21:00 Levofloxacin (Levaquin) 750 mg DAILY@06 PO Last administered on 03/20/19 05:21; Admin Dose 750 MG; Start 03/17/19 at 06:00 Acetaminophen/ Hydrocodone Bitart ([place] (5/325)) 1 tab Q4H PRN PO MODERATE PAIN LEVEL 4-6 Last administered on 03/18/19 18:35; Admin Dose 1 TAB; Start 03/16/19 at 22:10 Guaifenesin (Robitussin Liquid Cup) 100 mg Q4H PRN PO COUGH Last administered on 03/18/19 05:45; Admin Dose 100 MG; Start 03/17/19 at 19:30 Prednisone (Prednisone) 40 mg DAILY PO Last administered on 03/20/19 09:41; Admin Dose 40 MG; Start 03/18/19 at 13:30 Nystatin (Nystatin Powder) 1 applic BID TOP Last administered on 03/20/19 09:49; Admin Dose 1 APPLIC; Start 03/18/19 at 13:30 Furosemide (Lasix) 20 mg BID DIURETICS IV Last administered on 4/19/19at 09:41; Admin Dose 20 MG; Start 03/20/19 at 09:30 Tramadol HCl (Ultram) 50 mg Q6H PRN PO MODERATE PAIN LEVEL 4-6; Start 03/20/19 at 12:30 JACK FONTENOT Mar 20, 2019 12:40
[2019-03-20] MEDS: traMADol 50 MG TAB PO PRN ×2 (12:44→23:00)
--- NOTE | 2019-03-20 15:14 | PN ---
Date/Time of Note Date/Time of Note DATE: 03/20/19 TIME: 15:10 Assessment/Plan VTE Prophylaxis Risk score (from Nsg)>0 risk: 8 SCD applied (from Nsg): Yes Pharmacological prophylaxis: heparin Lines/Catheters IV Catheter Type (from Nrsg): Saline Lock Urinary Cath still in place: No Assessment/Plan Hospital Course EXAM Comfortable appearing Breathing nonlabored Morbid obesity Diffuse psoriasis lesions over legs and arms A/P: 48 yo male with morbid obesity, OHS and psoriasis here with SOB - Seems at his respiratory basleine - Continue nocturnal BIPAP for OHS Psoriasis: - Will start systemic prednisone course and given methotrexate dose - Topical steroids for psoriasis, follow up as outpatient Diastolic CHF: - Lasix 20 IV BID Dc to [facility]. Claims he is unable to care for himself at home independently Subjective 24 Hr Interval Summary Free Text/Dictation Still with pain. Unabel to localize it. Refuses PO options. Only wants IV narcotics Exam/Review of Systems Exam Vitals Vital Signs Date Temp Pulse Resp B/P (MAP) Pulse Ox O2 O2 Flow FiO2 Time Delivery Rate 03/20/19 98.3 124 18 146/66 98 Nasal 5.0 12:25 (92) Cannula 03/18/19 40 15:56 Intake and Output 03/19/19 03/19/19 03/20/19 1515:00 23:00 07:00 IntakeIntake Total 1200 ml OutputOutput Total 1000 ml BalanceBalance 200 ml Medications Medication Current Medications IV Flush (NS 3 ml) 3 ml PER PROTOCOL IV ; Start 03/12/19 at 22:30 Ondansetron HCl (Zofran Inj) 4 mg Q6H PRN IV NAUSEA/VOMITING; Start 03/12/19 at 22:30 Acetaminophen (Tylenol Tab) 650 mg Q6H PRN PO .PAIN 1-3 OR TEMP; Start 03/12/19 at 22:30 Enoxaparin Sodium (Lovenox) 40 mg DAILY SC Last administered on 03/20/19at 09:48; Admin Dose 40 MG; Start 03/13/19 at 09:00 Albuterol/ Ipratropium (Duoneb) 3 ml Q2H RESP THERAPY PRN HHN SHORTNESS OF BREATH Last administered on 03/20/19at 08:48; Admin Dose 3 ML; Start 03/12/19 at 22:30 Mometasone Furoate (Asmanex) 1 puff BID INH Last administered on 03/20/19 09:49; Admin Dose 1 PUFF; Start 03/13/19 at 09:00 Atorvastatin Calcium (Lipitor) 40 mg QHS PO Last administered on 03/19/19 20:55; Admin Dose 40 MG; Start 03/13/19 at 21:00 Folic Acid (Folic Acid) 1 mg DAILY PO Last administered on 03/20/19 09:41; Admin Dose 1 MG; Start 03/13/19 at 09:00 Losartan Potassium (Cozaar) 50 mg DAILY PO Last administered on 03/20/19 09:41; Admin Dose 50 MG; Start 03/13/19 at 09:00 Miscellaneous Information Patients own medicat... BID@10,16 XX Last administered on 03/18/19 16:27; Admin Dose 1 EA; Start 03/14/19 at 10:00 Diphenhydramine HCl (Benadryl) 25 mg Q6H PRN PO ITCHING Last administered on 03/20/19 05:21; Admin Dose 25 MG; Start 03/15/19 at 03:30 Non-Formulary Medication 1 ea TID TOP Last administered on 03/20/19 13:02; Admin Dose 1 EA; Start 03/15/19 at 21:00 Levofloxacin (Levaquin) 750 mg DAILY@06 PO Last administered on 03/20/19 05:21; Admin Dose 750 MG; Start 03/17/19 at 06:00 Guaifenesin (Robitussin Liquid Cup) 100 mg Q4H PRN PO COUGH Last administered on 03/18/19 05:45; Admin Dose 100 MG; Start 03/17/19 at 19:30 Prednisone (Prednisone) 40 mg DAILY PO Last administered on 03/20/19 09:41; Admin Dose 40 MG; Start 03/18/19 at 13:30 Nystatin (Nystatin Powder) 1 applic BID TOP Last administered on 03/20/19 09:49; Admin Dose 1 APPLIC; Start 03/18/19 at 13:30 Furosemide (Lasix) 20 mg BID DIURETICS IV Last administered on 03/20/19 09:41; Admin Dose 20 MG; Start 03/20/19 at 09:30 Tramadol HCl (Ultram) 50 mg Q6H PRN PO MODERATE PAIN LEVEL 4-6 Last administered on 03/20/19at 12:44; Admin Dose 50 MG; Start 03/20/19 at 12:30 STEVEN MCNEAL MD Mar 20, 2019 15:14
[2019-03-20 16:20] VITALS: BP 131/74; PULSE 105; RESP 18
[2019-03-20] MEDS ORDERED: FUROSEMIDE 20 MG INJ IV SCH (18:00)
[2019-03-20] MEDS: ATORVASTATIN 40 MG TAB PO SCH (21:08)
[2019-03-21] VITALS (7 sets, daily range): BP systolic 113–173; BP diastolic 55–83; PULSE 78–118; RESP 18–20
[2019-03-21] MEDS: ALBUTEROL/IPRATROPIUM (NEB) 3 ML AMP HHN PRN ×3 (00:50→20:53)
[2019-03-21] MEDS: traMADol 50 MG TAB PO PRN ×2 (05:14→14:33)
[2019-03-21] MEDS: LEVOFLOXACIN 750 MG TABLET PO SCH (05:14)
[2019-03-21] MEDS: DIPHENHYDRAMINE 25 MG CAP PO PRN ×3 (05:14→23:37)
[2019-03-21] MEDS: FUROSEMIDE 20 MG INJ IV SCH ×2 (05:15→17:41)
[2019-03-21] MEDS: predniSONE 20 MG TAB PO SCH (08:27)
[2019-03-21] MEDS: FOLIC ACID 1 MG TAB PO SCH (08:27)
[2019-03-21] MEDS: MOMETASONE 0.24 GM INHALER INH SCH ×2 (08:28→21:53)
[2019-03-21] MEDS: LOSARTAN 50 MG TAB PO SCH (08:28)
[2019-03-21] MEDS: NYSTATIN 30 GM POWDER BTL TOP SCH ×2 (08:33→21:53)
[2019-03-21] MEDS: TRIAMCINOLONE ACET 0.025% 15 GM OINT TOP SCH ×3 (08:33→21:56)
[2019-03-21] MEDS: ENOXAPARIN 40 MG/0.4 ML SYG SC SCH (08:35)
[2019-03-21] MEDS ORDERED: morphine 2 MG INJ IV PRN (09:30)
--- NOTE | 2019-03-21 09:30 | CONS ---
Assessment/Plan Assessment/Plan Assessment/Plan (Daily) Assessment and recommendations; 1. Patient with history of morbid obesity admitted for acute bronchitis with interval improvement. 2. History of psoriasis with generalized erythematous rash. Patient complaining of significant itching. 3. Likely underlying sleep apnea. Discontinue oral prednisone as according to the patient whenever he gets Solu- Medrol, it causes rapid improvement in rash , start Solu-Medrol 40 mg every 6 hours. Patient also requesting morphine for chronic pain, add 2 mg IV every 4 hours as needed. Meanwhile continue other supportive measures. Consultation Date/Type/Reason Admit Date/Time Mar 12, 2019 at 18:53 Initial Consult Date 03/13/19 Type of Consult Pulmonary Patient is a 48-year-old male who came into the hospital with a 2-day history of shortness of breath and mild chest congestion. Patient denies any wheezing, high fever, body aches or myalgias. By the time I saw him in the room, patient was quite comfortable and was reporting improvement in symptoms. Past medical history; 1. History of morbid obesity with sleep apnea syndrome, patient was admitted at [facility] in late 2016 and ultimately required a tracheostomy and since now has been decannulated. 2. History of sleep apnea. 3. Possibly some element of CHF. 4. Hypertension. 5. Chronic immunosuppression, patient on outpatient prednisone and methotrexate. Medications; reviewed. Allergies; none. Social history; noncontributory. Family history; noncontributory. Occupational history; patient is on disability. Review of systems; denies any headache, seizures, visual changes, any sinus symptoms. Shortness of breath has improved. Denies any wheezing, sputum production or hemoptysis. Any chest pain or angina. Denies any abdominal pain, nausea vomiting. Denies any edema. Any GI or urinary symptoms. Patient does complain of snoring. Has gained some weight. General exam; young male, morbidly obese, awake and alert. Currently in no distress. Date/Time of Note DATE: 03/21/19 TIME: 09:27 24 HR Interval Summary Free Text/Dictation Patient's condition is stable overall. Complains of increasing rash as well as generalized body aches and pains. General exam; young male, morbidly obese, laying comfortably in recliner chair. Currently no distress. Exam/Review of Systems Exam Vitals Vital Signs Date Temp Pulse Resp B/P (MAP) Pulse Ox O2 O2 Flow FiO2 Time Delivery Rate 03/21/19 97.5 106 18 149/83 96 08:02 (105) 03/21/19 40 01:04 03/21/19 Nasal 4.0 00:51 Cannula Intake and Output 03/20/19 03/20/19 03/21/19 1515:00 23:00 07:00 IntakeIntake Total 1850 ml 1500 ml OutputOutput Total 2200 ml 1300 ml BalanceBalance -350 ml 200 ml Exam H EENT exam; supple neck, JVD difficult to see because of short neck. Patient has fair dentition. No neck masses. Chest exam; diminished breath sounds throughout. No added sounds. S1-S2 audible, no murmurs. Regular rhythm. Abdomen exam; grossly protuberant. Organomegaly difficult to assess. Bowel sounds audible. Extremity exam; trace edema. Skin examination; diffuse erythematous rash. JD EDWARDS DEVELOPER exam; no focal deficit. Medications Medication Current Medications IV Flush (NS 3 ml) 3 ml PER PROTOCOL IV ; Start 03/12/19 at 22:30 Ondansetron HCl (Zofran Inj) 4 mg Q6H PRN IV NAUSEA/VOMITING; Start 03/12/19 at 22:30 Acetaminophen (Tylenol Tab) 650 mg Q6H PRN PO .PAIN 1-3 OR TEMP; Start 03/12/19 at 22:30 Enoxaparin Sodium (Lovenox) 40 mg DAILY SC Last administered on 03/21/19at 08:35; Admin Dose 40 MG; Start 03/13/19 at 09:00 Albuterol/ Ipratropium (Duoneb) 3 ml Q2H RESP THERAPY PRN HHN SHORTNESS OF BREATH Last administered on 03/21/19at 00:50; Admin Dose 3 ML; Start 03/12/19 at 22:30 Mometasone Furoate (Asmanex) 1 puff BID INH Last administered on 03/21/19at 08:28; Admin Dose 1 PUFF; Start 03/13/19 at 09:00 Atorvastatin Calcium (Lipitor) 40 mg QHS PO Last administered on 03/20/19at 21:08; Admin Dose 40 MG; Start 03/13/19 at 21:00 Folic Acid (Folic Acid) 1 mg DAILY PO Last administered on 03/21/19 08:27; Admin Dose 1 MG; Start 03/13/19 at 09:00 Losartan Potassium (Cozaar) 50 mg DAILY PO Last administered on 03/21/19 08:28; Admin Dose 50 MG; Start 03/13/19 at 09:00 Miscellaneous Information Patients own medicat... BID@10,16 XX Last administered on 03/18/19 16:27; Admin Dose 1 EA; Start 03/14/19 at 10:00 Diphenhydramine HCl (Benadryl) 25 mg Q6H PRN PO ITCHING Last administered on 03/21/19 05:14; Admin Dose 25 MG; Start 03/15/19 at 03:30 Non-Formulary Medication 1 ea TID TOP Last administered on 03/21/19 08:33; Admin Dose 1 EA; Start 03/15/19 at 21:00 Levofloxacin (Levaquin) 750 mg DAILY@06 PO Last administered on 03/21/19 05:14; Admin Dose 750 MG; Start 03/17/19 at 06:00 Guaifenesin (Robitussin Liquid Cup) 100 mg Q4H PRN PO COUGH Last administered on 03/18/19 05:45; Admin Dose 100 MG; Start 03/17/19 at 19:30 Prednisone (Prednisone) 40 mg DAILY PO Last administered on 03/21/19 08:27; Admin Dose 40 MG; Start 03/18/19 at 13:30 Nystatin (Nystatin Powder) 1 applic BID TOP Last administered on 03/21/19 08:33; Admin Dose 1 APPLIC; Start 03/18/19 at 13:30 Furosemide (Lasix) 20 mg BID DIURETICS IV Last administered on 03/21/19 05:15; Admin Dose 20 MG; Start 03/20/19 at 09:30 Tramadol HCl (Ultram) 50 mg Q6H PRN PO MODERATE PAIN LEVEL 4-6 Last administered on 03/21/19 05:14; Admin Dose 50 MG; Start 03/20/19 at 12:30 GABRIEL MALDONADO Mar 21, 2019 09:30
[2019-03-21] MEDS ORDERED: METHYLPREDNISOLONE 40 MG INJ IV SCH (12:00)
--- NOTE | 2019-03-21 15:08 | PN ---
Date/Time of Note Date/Time of Note DATE: 03/21/19 TIME: 15:07 Assessment/Plan VTE Prophylaxis Risk score (from Nsg)>0 risk: 2 SCD applied (from Nsg): Yes Pharmacological prophylaxis: heparin Lines/Catheters IV Catheter Type (from Nrsg): Saline Lock Urinary Cath still in place: No Assessment/Plan Hospital Course EXAM Comfortable appearing Breathing nonlabored Morbid obesity Diffuse psoriasis lesions over legs and arms A/P: 48 yo male with morbid obesity, OHS and psoriasis here with SOB - Seems at his respiratory basleine - Continue nocturnal BIPAP for OHS Psoriasis: - Will start systemic prednisone course and given methotrexate dose - Topical steroids for psoriasis, follow up as outpatient Diastolic CHF: - Lasix 20 IV BID Dc to [facility]. Claims he is unable to care for himself at home independently Subjective 24 Hr Interval Summary Free Text/Dictation Diuresing effectively Exam/Review of Systems Exam Vitals Vital Signs Date Temp Pulse Resp B/P (MAP) Pulse Ox O2 O2 Flow FiO2 Time Delivery Rate 03/21/19 106 20 95 Nasal 4.0 12:19 Cannula 03/21/19 98.2 173/79 11:13 (110) 03/21/19 40 01:04 Intake and Output 03/20/19 03/20/19 03/21/19 1515:00 23:00 07:00 IntakeIntake Total 1850 ml 1500 ml OutputOutput Total 2200 ml 1300 ml BalanceBalance -350 ml 200 ml Medications Medication Current Medications IV Flush (NS 3 ml) 3 ml PER PROTOCOL IV ; Start 03/12/19 at 22:30 Ondansetron HCl (Zofran Inj) 4 mg Q6H PRN IV NAUSEA/VOMITING; Start 03/12/19 at 22:30 Acetaminophen (Tylenol Tab) 650 mg Q6H PRN PO .PAIN 1-3 OR TEMP; Start 03/12/19 at 22:30 Enoxaparin Sodium (Lovenox) 40 mg DAILY SC Last administered on 03/21/19at 08:35; Admin Dose 40 MG; Start 03/13/19 at 09:00 Albuterol/ Ipratropium (Duoneb) 3 ml Q2H RESP THERAPY PRN HHN SHORTNESS OF BREATH Last administered on 03/21/19at 12:18; Admin Dose 3 ML; Start 03/12/19 at 22:30 Mometasone Furoate (Asmanex) 1 puff BID INH Last administered on 03/21/19 08:28; Admin Dose 1 PUFF; Start 03/13/19 at 09:00 Atorvastatin Calcium (Lipitor) 40 mg QHS PO Last administered on 03/20/19 21:08; Admin Dose 40 MG; Start 03/13/19 at 21:00 Folic Acid (Folic Acid) 1 mg DAILY PO Last administered on 03/21/19 08:27; Admin Dose 1 MG; Start 03/13/19 at 09:00 Losartan Potassium (Cozaar) 50 mg DAILY PO Last administered on 03/21/19 08:28; Admin Dose 50 MG; Start 03/13/19 at 09:00 Miscellaneous Information Patients own medicat... BID@10,16 XX Last administered on 03/18/19 16:27; Admin Dose 1 EA; Start 03/14/19 at 10:00 Diphenhydramine HCl (Benadryl) 25 mg Q6H PRN PO ITCHING Last administered on 03/21/19 12:31; Admin Dose 25 MG; Start 03/15/19 at 03:30 Non-Formulary Medication 1 ea TID TOP Last administered on 03/21/19 12:31; Admin Dose 1 EA; Start 03/15/19 at 21:00 Levofloxacin (Levaquin) 750 mg DAILY@06 PO Last administered on 03/21/19 05:14; Admin Dose 750 MG; Start 03/17/19 at 06:00 Guaifenesin (Robitussin Liquid Cup) 100 mg Q4H PRN PO COUGH Last administered on 03/18/19 05:45; Admin Dose 100 MG; Start 03/17/19 at 19:30 Nystatin (Nystatin Powder) 1 applic BID TOP Last administered on 03/21/19 08:33; Admin Dose 1 APPLIC; Start 03/18/19 at 13:30 Furosemide (Lasix) 20 mg BID DIURETICS IV Last administered on 03/21/19 05:15; Admin Dose 20 MG; Start 03/20/19 at 09:30 Tramadol HCl (Ultram) 50 mg Q6H PRN PO MODERATE PAIN LEVEL 4-6 Last administered on 03/21/19 14:33; Admin Dose 50 MG; Start 03/20/19 at 12:30 Prednisone (Prednisone) 40 mg DAILY PO ; Start 03/22/19 at 09:00 STEVEN MCNEAL MD Mar 21, 2019 15:08
[2019-03-21] MEDS: ATORVASTATIN 40 MG TAB PO SCH (21:53)
[2019-03-22] VITALS (8 sets, daily range): BP systolic 123–146; BP diastolic 63–100; PULSE 100–120; RESP 18–20
[2019-03-22] MEDS: traMADol 50 MG TAB PO PRN ×3 (01:14→22:58)
[2019-03-22] MEDS: LEVOFLOXACIN 750 MG TABLET PO SCH (06:00)
[2019-03-22] MEDS: FUROSEMIDE 20 MG INJ IV SCH (06:00)
--- NOTE | 2019-03-22 08:23 | CONS ---
Assessment/Plan Assessment/Plan Assessment/Plan (Daily) Assessment and recommendations; 1. Patient with history of morbid obesity admitted for acute bronchitis with significant interval improvement. 2. History of extensive psoriasis, patient on long-term prednisone and methotrexate. 3. Likely underlying sleep apnea. Continue current supportive care. Patient awaiting discharge. Consultation Date/Type/Reason Admit Date/Time Mar 12, 2019 at 18:53 Initial Consult Date 03/13/19 Type of Consult Pulmonary Patient is a 48-year-old male who came into the hospital with a 2-day history of shortness of breath and mild chest congestion. Patient denies any wheezing, high fever, body aches or myalgias. By the time I saw him in the room, patient was quite comfortable and was reporting improvement in symptoms. Past medical history; 1. History of morbid obesity with sleep apnea syndrome, patient was admitted at [facility] in late 2016 and ultimately required a tracheostomy and since now has been decannulated. 2. History of sleep apnea. 3. Possibly some element of CHF. 4. Hypertension. 5. Chronic immunosuppression, patient on outpatient prednisone and methotrexate. Medications; reviewed. Allergies; none. Social history; noncontributory. Family history; noncontributory. Occupational history; patient is on disability. Review of systems; denies any headache, seizures, visual changes, any sinus symptoms. Shortness of breath has improved. Denies any wheezing, sputum production or hemoptysis. Any chest pain or angina. Denies any abdominal pain, nausea vomiting. Denies any edema. Any GI or urinary symptoms. Patient does complain of snoring. Has gained some weight. General exam; young male, morbidly obese, awake and alert. Currently in no distress. Date/Time of Note DATE: 03/22/19 TIME: 08:22 24 HR Interval Summary Free Text/Dictation Patient's condition is stable. Denies any shortness of breath, coughing, wheezing. General exam; young male, morbidly obese, awake and alert. Currently in no distress. Exam/Review of Systems Exam Vitals Vital Signs Date Temp Pulse Resp B/P (MAP) Pulse Ox O2 O2 Flow FiO2 Time Delivery Rate 03/22/19 98.4 100 18 133/63 96 07:55 (86) 03/22/19 4.0 05:55 03/22/19 40 05:55 03/21/19 Nasal 20:53 Cannula Intake and Output 03/21/19 03/21/19 03/22/19 1515:00 23:00 07:00 IntakeIntake Total 1000 ml 1500 ml OutputOutput Total 400 ml 600 ml BalanceBalance 600 ml 900 ml Exam H EENT exam; supple neck, JVD difficult to see because of short neck. Patient has fair dentition. No neck masses. Chest exam; diminished but clear breath sounds. S1-S2 audible, no murmurs. Regular rhythm. Abdomen exam; soft, protuberant. Bowel sounds audible. Organomegaly difficult to assess. Extremity exam; no edema. Skin exam is; patient has diffuse psoriatic rash. EXECUTIVE ASSOCIATE exam; no focal deficit. Results Results 24hrs Laboratory Tests Test 03/22/19 07:50 White Blood Count Pending Red Blood Count Pending Hemoglobin Pending Hematocrit Pending Mean Corpuscular Volume Pending Mean Corpuscular Hemoglobin Pending Mean Corpuscular Hemoglobin Concent Pending Red Cell Distribution Width Pending Platelet Count Pending Mean Platelet Volume Pending Medications Medication Current Medications IV Flush (NS 3 ml) 3 ml PER PROTOCOL IV ; Start 03/12/19 at 22:30 Ondansetron HCl (Zofran Inj) 4 mg Q6H PRN IV NAUSEA/VOMITING; Start 03/12/19 at 22:30 Acetaminophen (Tylenol Tab) 650 mg Q6H PRN PO .PAIN 1-3 OR TEMP; Start 03/12/19 at 22:30 Enoxaparin Sodium (Lovenox) 40 mg DAILY SC Last administered on 03/21/19at 08:35; Admin Dose 40 MG; Start 03/13/19 at 09:00 Albuterol/ Ipratropium (Duoneb) 3 ml Q2H RESP THERAPY PRN HHN SHORTNESS OF BREATH Last administered on 03/21/19at 20:53; Admin Dose 3 ML; Start 03/12/19 at 22:30 Mometasone Furoate (Asmanex) 1 puff BID INH Last administered on 03/21/19at 21:53; Admin Dose 1 PUFF; Start 03/13/19 at 09:00 Atorvastatin Calcium (Lipitor) 40 mg QHS PO Last administered on 03/21/19at 21:53; Admin Dose 40 MG; Start 03/13/19 at 21:00 Folic Acid (Folic Acid) 1 mg DAILY PO Last administered on 03/21/19 08:27; Admin Dose 1 MG; Start 03/13/19 at 09:00 Losartan Potassium (Cozaar) 50 mg DAILY PO Last administered on 03/21/19 08:28; Admin Dose 50 MG; Start 03/13/19 at 09:00 Miscellaneous Information Patients own medicat... BID@10,16 XX Last administered on 03/18/19 16:27; Admin Dose 1 EA; Start 03/14/19 at 10:00 Diphenhydramine HCl (Benadryl) 25 mg Q6H PRN PO ITCHING Last administered on 03/21/19 23:37; Admin Dose 25 MG; Start 03/15/19 at 03:30 Non-Formulary Medication 1 ea TID TOP Last administered on 03/21/19 21:56; Admin Dose 1 EA; Start 03/15/19 at 21:00 Levofloxacin (Levaquin) 750 mg DAILY@06 PO Last administered on 03/22/19 06:00; Admin Dose 750 MG; Start 03/17/19 at 06:00 Guaifenesin (Robitussin Liquid Cup) 100 mg Q4H PRN PO COUGH Last administered on 03/18/19 05:45; Admin Dose 100 MG; Start 03/17/19 at 19:30 Nystatin (Nystatin Powder) 1 applic BID TOP Last administered on 03/21/19 21:53; Admin Dose 1 APPLIC; Start 03/18/19 at 13:30 Furosemide (Lasix) 20 mg BID DIURETICS IV Last administered on 03/22/19 06:00; Admin Dose 20 MG; Start 03/20/19 at 09:30 Tramadol HCl (Ultram) 50 mg Q6H PRN PO MODERATE PAIN LEVEL 4-6 Last administered on 03/22/19 01:14; Admin Dose 50 MG; Start 03/20/19 at 12:30 Prednisone (Prednisone) 40 mg DAILY PO ; Start 03/22/19 at 09:00 GABRIEL MALDONADO Mar 22, 2019 08:23
[2019-03-22] MEDS: ALBUTEROL/IPRATROPIUM (NEB) 3 ML AMP HHN PRN ×3 (08:57→22:11)
[2019-03-22] MEDS: FOLIC ACID 1 MG TAB PO SCH (09:09)
[2019-03-22] MEDS: predniSONE 20 MG TAB PO SCH (09:09)
[2019-03-22] MEDS: LOSARTAN 50 MG TAB PO SCH (09:09)
[2019-03-22] MEDS: MOMETASONE 0.24 GM INHALER INH SCH ×2 (09:09→21:39)
[2019-03-22] MEDS: NYSTATIN 30 GM POWDER BTL TOP SCH ×2 (09:14→19:43)
[2019-03-22] MEDS: TRIAMCINOLONE ACET 0.025% 15 GM OINT TOP SCH ×3 (09:14→19:43)
[2019-03-22] MEDS: ENOXAPARIN 40 MG/0.4 ML SYG SC SCH (09:14)
[2019-03-22] MEDS ORDERED: POTASSIUM CHLORIDE (SR) 20 MEQ TAB PO STA (09:37)
[2019-03-22] MEDS: DIPHENHYDRAMINE 25 MG CAP PO PRN (14:45)
--- NOTE | 2019-03-22 17:27 | PN ---
Date/Time of Note Date/Time of Note DATE: 03/22/19 TIME: 17:24 Assessment/Plan VTE Prophylaxis Risk score (from Nsg)>0 risk: 1 SCD applied (from Nsg): Yes Pharmacological prophylaxis: heparin Lines/Catheters IV Catheter Type (from Nrsg): Saline Lock Urinary Cath still in place: No Assessment/Plan Hospital Course EXAM Comfortable appearing Breathing nonlabored Morbid obesity Diffuse psoriasis lesions over legs and arms Pitting edema in legs A/P: 48 yo male with morbid obesity, OHS and psoriasis here with SOB - Continue nocturnal BIPAP for OHS Acute diastlic CHF: - Requires continued diuresis. I held lasix today because he has developed contraction alkalosis leading to worsening hypercapnea. Restart lasix perhpas tomorrow pending bicarb Psoriasis: - Will start systemic prednisone course and s/p methotrexate dose. Can dc prednisone in coming days - Topical steroids for psoriasis, follow up as outpatient Morbid obesity: - Counseled - Weight loss surgery planned as outpatient Dc to [facility]. Claims he is unable to care for himself at home independently Result Diagram: 03/22/19 0750 03/22/19 0749 Results 24hrs Laboratory Tests Test 03/22/19 07:49 03/22/19 07:50 03/22/19 09:21 Sodium Level 140 Potassium Level 3.9 Chloride Level 90 L Carbon Dioxide Level 40 H Anion Gap 10 Blood Urea Nitrogen 20 Creatinine 0.56 L Est Glomerular Filtrat > 60 Rate mL/min Glucose Level 104 Calcium Level 9.1 White Blood Count 10.7 # Red Blood Count 4.28 L Hemoglobin 9.9 L Hematocrit 35.9 L Mean Corpuscular Volume 83.9 Mean Corpuscular Hemoglobin 23.1 L Mean Corpuscular 27.6 L Hemoglobin Concent Red Cell Distribution Width 21.4 H Platelet Count 389 # Mean Platelet Volume 9.5 Immature Granulocytes % 0.400 Neutrophils % 71.3 Lymphocytes % 18.7 Monocytes % 6.8 Eosinophils % 2.4 Basophils % 0.4 Nucleated Red Blood Cells % 0.0 Immature Granulocytes # 0.040 H Neutrophils # 7.6 H Lymphocytes # 2.0 Monocytes # 0.7 Eosinophils # 0.3 Basophils # 0.0 Nucleated Red Blood Cells # 0.0 Blood Gas Specimen Source Blood arterial Arterial Blood Date Drawn 03/22/2019 12:00:09 PM Arterial Blood pH 7.376 (Temp corrected) Arterial Blood pCO2 66.4 H (Temp correct) Arterial Blood pO2 75.7 L (Temp corrected) Arterial Blood HCO3 38.0 H Arterial Blood Base Excess 10.6 H Arterial Blood 94.3 L Oxygen Saturation Danyel Test ACCEPTAB Arterial Blood Gas Left Radial Puncture Site Arterial 0.8 Blood Carboxyhemoglobin Arterial Blood 0.2 Methemoglobin Blood Gas A-a O2 82.1 H Differential Oxyhemoglobin Percent 93.4 Blood Gas Temperature 37.0 Blood Gas Modality NASAL CANNULA FiO2 33.0 Blood Gas Notified Whom Tin Blood Gas Notified Time 03/22/2019 12:15:32 PM Subjective 24 Hr Interval Summary Free Text/Dictation Feeling a bit better with diuretics However this has caused worsening metabolic alkalosis and hypoventilation so diuretics held today Exam/Review of Systems Exam Vitals Vital Signs Date Temp Pulse Resp B/P (MAP) Pulse Ox O2 O2 Flow FiO2 Time Delivery Rate 03/22/19 98.1 100 18 123/89 98 15:55 (100) 03/22/19 Nasal 4.0 15:34 Cannula 03/22/19 40 09:45 Intake and Output 03/21/19 03/21/19 03/22/19 1515:00 23:00 07:00 IntakeIntake Total 1000 ml 1500 ml OutputOutput Total 400 ml 600 ml BalanceBalance 600 ml 900 ml Results Results 24hrs Laboratory Tests Test 03/22/19 07:49 03/22/19 07:50 03/22/19 09:21 Sodium Level 140 Potassium Level 3.9 Chloride Level 90 L Carbon Dioxide Level 40 H Anion Gap 10 Blood Urea Nitrogen 20 Creatinine 0.56 L Est Glomerular Filtrat > 60 Rate mL/min Glucose Level 104 Calcium Level 9.1 White Blood Count 10.7 # Red Blood Count 4.28 L Hemoglobin 9.9 L Hematocrit 35.9 L Mean Corpuscular Volume 83.9 Mean Corpuscular Hemoglobin 23.1 L Mean Corpuscular 27.6 L Hemoglobin Concent Red Cell Distribution Width 21.4 H Platelet Count 389 # Mean Platelet Volume 9.5 Immature Granulocytes % 0.400 Neutrophils % 71.3 Lymphocytes % 18.7 Monocytes % 6.8 Eosinophils % 2.4 Basophils % 0.4 Nucleated Red Blood Cells % 0.0 Immature Granulocytes # 0.040 H Neutrophils # 7.6 H Lymphocytes # 2.0 Monocytes # 0.7 Eosinophils # 0.3 Basophils # 0.0 Nucleated Red Blood Cells # 0.0 Blood Gas Specimen Source Blood arterial Arterial Blood Date Drawn 03/22/2019 12:00:09 PM Arterial Blood pH 7.376 (Temp corrected) Arterial Blood pCO2 66.4 H (Temp correct) Arterial Blood pO2 75.7 L (Temp corrected) Arterial Blood HCO3 38.0 H Arterial Blood Base Excess 10.6 H Arterial Blood 94.3 L Oxygen Saturation Danyel Test ACCEPTAB Arterial Blood Gas Left Radial Puncture Site Arterial 0.8 Blood Carboxyhemoglobin Arterial Blood 0.2 Methemoglobin Blood Gas A-a O2 82.1 H Differential Oxyhemoglobin Percent 93.4 Blood Gas Temperature 37.0 Blood Gas Modality NASAL CANNULA FiO2 33.0 Blood Gas Notified Whom M.D. Blood Gas Notified Time 03/22/2019 12:15:32 PM Medications Medication Current Medications IV Flush (NS 3 ml) 3 ml PER PROTOCOL IV ; Start 03/12/19 at 22:30 Ondansetron HCl (Zofran Inj) 4 mg Q6H PRN IV NAUSEA/VOMITING; Start 03/12/19 at 22:30 Acetaminophen (Tylenol Tab) 650 mg Q6H PRN PO .PAIN 1-3 OR TEMP; Start 03/12/19 at 22:30 Enoxaparin Sodium (Lovenox) 40 mg DAILY SC Last administered on 03/22/19at 09:14; Admin Dose 40 MG; Start 03/13/19 at 09:00 Albuterol/ Ipratropium (Duoneb) 3 ml Q2H RESP THERAPY PRN HHN SHORTNESS OF BREATH Last administered on 03/22/19at 15:33; Admin Dose 3 ML; Start 03/12/19 at 22:30 Mometasone Furoate (Asmanex) 1 puff BID INH Last administered on 03/22/19 09:09; Admin Dose 1 PUFF; Start 03/13/19 at 09:00 Atorvastatin Calcium (Lipitor) 40 mg QHS PO Last administered on 03/21/19at 21:53; Admin Dose 40 MG; Start 03/13/19 at 21:00 Folic Acid (Folic Acid) 1 mg DAILY PO Last administered on 03/22/19at 09:09; Admin Dose 1 MG; Start 03/13/19 at 09:00 Losartan Potassium (Cozaar) 50 mg DAILY PO Last administered on 03/22/19 09:09; Admin Dose 50 MG; Start 03/13/19 at 09:00 Miscellaneous Information Patients own medicat... BID@10,16 XX Last administered on 03/18/19 16:27; Admin Dose 1 EA; Start 03/14/19 at 10:00 Diphenhydramine HCl (Benadryl) 25 mg Q6H PRN PO ITCHING Last administered on 03/22/19 14:45; Admin Dose 25 MG; Start 03/15/19 at 03:30 Non-Formulary Medication 1 ea TID TOP Last administered on 03/22/19 09:14; Admin Dose 1 EA; Start 03/15/19 at 21:00 Levofloxacin (Levaquin) 750 mg DAILY@06 PO Last administered on 03/22/19 06:00; Admin Dose 750 MG; Start 03/17/19 at 06:00 Guaifenesin (Robitussin Liquid Cup) 100 mg Q4H PRN PO COUGH Last administered on 03/18/19 05:45; Admin Dose 100 MG; Start 03/17/19 at 19:30 Nystatin (Nystatin Powder) 1 applic BID TOP Last administered on 03/22/19 09:14; Admin Dose 1 APPLIC; Start 03/18/19 at 13:30 Furosemide (Lasix) 20 mg BID DIURETICS IV Last administered on 03/22/19 06:00; Admin Dose 20 MG; Start 03/20/19 at 09:30; Status Hold Tramadol HCl (Ultram) 50 mg Q6H PRN PO MODERATE PAIN LEVEL 4-6 Last administered on 03/22/19 10:41; Admin Dose 50 MG; Start 03/20/19 at 12:30 Prednisone (Prednisone) 40 mg DAILY PO Last administered on 03/22/19 09:09; Admin Dose 40 MG; Start 03/22/19 at 09:00 STEVEN MCNEAL MD Mar 22, 2019 17:27
[2019-03-22] MEDS: ATORVASTATIN 40 MG TAB PO SCH (19:41)
[2019-03-23] VITALS (8 sets, daily range): BP systolic 129–165; BP diastolic 68–77; PULSE 98–110; RESP 18–20
[2019-03-23] MEDS: DIPHENHYDRAMINE 25 MG CAP PO PRN (02:54)
[2019-03-23] MEDS: traMADol 50 MG TAB PO PRN (05:14)
[2019-03-23] MEDS ORDERED: DIPHENHYDRAMINE 25 MG CAP PO ONE (05:30)
[2019-03-23] MEDS ORDERED: KETOROLAC 30 MG INJ IV STA (09:25)
[2019-03-23] MEDS: FOLIC ACID 1 MG TAB PO SCH (09:28)
[2019-03-23] MEDS: LOSARTAN 50 MG TAB PO SCH (09:29)
[2019-03-23] MEDS: predniSONE 20 MG TAB PO SCH (09:30)
[2019-03-23] MEDS: ENOXAPARIN 40 MG/0.4 ML SYG SC SCH (09:35)
[2019-03-23] MEDS: NYSTATIN 30 GM POWDER BTL TOP SCH ×2 (09:36→21:57)
[2019-03-23] MEDS: MOMETASONE 0.24 GM INHALER INH SCH ×2 (09:37→21:57)
[2019-03-23] MEDS: TRIAMCINOLONE ACET 0.025% 15 GM OINT TOP SCH ×3 (09:37→21:57)
[2019-03-23] MEDS: ALBUTEROL/IPRATROPIUM (NEB) 3 ML AMP HHN PRN (14:22)
--- NOTE | 2019-03-23 15:56 | PN ---
Date/Time of Note Date/Time of Note DATE: 03/23/19 TIME: 15:46 Assessment/Plan VTE Prophylaxis Risk score (from Nsg)>0 risk: 7 Pharmacological prophylaxis: NA/contraindicated Pharm contraindication: low risk/ambulating Lines/Catheters IV Catheter Type (from Nrsg): Saline Lock Urinary Cath still in place: No Assessment/Plan Hospital Course OHS with chronic hypercapnic respiratory failure - Continue nocturnal BIPAP for OHS Acute diastolic CHF: - Requires continued diuresis, Lasix was being held secondary to contraction alkalosis but have resumed today Psoriasis: -Continue systemic prednisone course and s/p methotrexate dose. Can dc prednisone in coming days - Topical steroids started, follow up as outpatient Morbid obesity: - Counseled - Weight loss surgery planned as outpatient Dc to [facility]. Claims he is unable to care for himself at home independently Result Diagram: 03/22/19 0750 03/23/19 0640 Results 24hrs Laboratory Tests Test 03/23/19 06:40 Sodium Level 139 Potassium Level 4.0 Chloride Level 94 L Carbon Dioxide Level 38 H Anion Gap 7 Blood Urea Nitrogen 17 Creatinine 0.66 Est Glomerular Filtrat Rate mL/min > 60 Glucose Level 105 Calcium Level 9.4 Subjective 24 Hr Interval Summary Skin: skin lesions Exam/Review of Systems Exam Vitals Vital Signs Date Temp Pulse Resp B/P (MAP) Pulse Ox O2 O2 Flow FiO2 Time Delivery Rate 03/23/19 97.8 98 18 143/68 94 Mechanical 15:44 (93) Ventilator 03/23/19 5.0 11:22 03/22/19 40 09:45 Intake and Output 03/22/19 03/22/19 03/23/19 1515:00 23:00 07:00 IntakeIntake Total 850 ml 750 ml OutputOutput Total 1600 ml 850 ml BalanceBalance -750 ml -100 ml Constitutional: alert, oriented Respiratory: clear to auscultation Cardiovascular: regular rate and rhythm Gastrointestinal: soft; No distended Musculoskeletal: No nl extremities to inspection Results Results 24hrs Laboratory Tests Test 03/23/19 06:40 Sodium Level 139 Potassium Level 4.0 Chloride Level 94 L Carbon Dioxide Level 38 H Anion Gap 7 Blood Urea Nitrogen 17 Creatinine 0.66 Est Glomerular Filtrat Rate mL/min > 60 Glucose Level 105 Calcium Level 9.4 Medications Medication Current Medications IV Flush (NS 3 ml) 3 ml PER PROTOCOL IV ; Start 4/11/19 at 22:30 Ondansetron HCl (Zofran Inj) 4 mg Q6H PRN IV NAUSEA/VOMITING; Start 03/12/19 at 22:30 Acetaminophen (Tylenol Tab) 650 mg Q6H PRN PO .PAIN 1-3 OR TEMP; Start 03/12/19 at 22:30 Enoxaparin Sodium (Lovenox) 40 mg DAILY SC Last administered on 03/23/19 09:35; Admin Dose 40 MG; Start 03/13/19 at 09:00 Albuterol/ Ipratropium (Duoneb) 3 ml Q2H RESP THERAPY PRN HHN SHORTNESS OF BREATH Last administered on 03/23/19 14:22; Admin Dose 3 ML; Start 03/12/19 at 22:30 Mometasone Furoate (Asmanex) 1 puff BID INH Last administered on 03/23/19 09:37; Admin Dose 1 PUFF; Start 03/13/19 at 09:00 Atorvastatin Calcium (Lipitor) 40 mg QHS PO Last administered on 03/22/19 19 :41; Admin Dose 40 MG; Start 03/13/19 at 21:00 Folic Acid (Folic Acid) 1 mg DAILY PO Last administered on 03/23/19 09:28; Admin Dose 1 MG; Start 03/13/19 at 09:00 Losartan Potassium (Cozaar) 50 mg DAILY PO Last administered on 03/23/19 09:29; Admin Dose 50 MG; Start 03/13/19 at 09:00 Miscellaneous Information Patients own medicat... BID@10,16 XX Last administered on 03/18/19 16:27; Admin Dose 1 EA; Start 03/14/19 at 10:00 Diphenhydramine HCl (Benadryl) 25 mg Q6H PRN PO ITCHING Last administered on 03/23/19 02:54; Admin Dose 25 MG; Start 03/15/19 at 03:30 Non-Formulary Medication 1 ea TID TOP Last administered on 03/23/19 09:37; Admin Dose 1 EA; Start 03/15/19 at 21:00 Guaifenesin (Robitussin Liquid Cup) 100 mg Q4H PRN PO COUGH Last administered on 03/18/19 05:45; Admin Dose 100 MG; Start 03/17/19 at 19:30 Nystatin (Nystatin Powder) 1 applic BID TOP Last administered on 03/23/19 09:36; Admin Dose 1 APPLIC; Start 03/18/19 at 13:30 Furosemide (Lasix) 20 mg BID DIURETICS IV Last administered on 03/22/19 06:00; Admin Dose 20 MG; Start 03/20/19 at 09:30; Status Hold Tramadol HCl (Ultram) 50 mg Q6H PRN PO MODERATE PAIN LEVEL 4-6 Last administered on 03/23/19 05:14; Admin Dose 50 MG; Start 03/20/19 at 12:30 Prednisone (Prednisone) 40 mg DAILY PO Last administered on 03/23/19 09:30; Admin Dose 40 MG; Start 03/22/19 at 09:00 Ketorolac Tromethamine (Toradol) 30 mg Q6H PRN IV PAIN LEVEL 1-3; Start 03/23/19 at 12:00; Stop 03/26/19 at 11:59 TAMRA JOHNSON Mar 23, 2019 15:56
[2019-03-23] MEDS: KETOROLAC 30 MG INJ IV PRN (17:48)
[2019-03-23] MEDS: FUROSEMIDE 20 MG INJ IV SCH (17:48)
[2019-03-23] MEDS: ATORVASTATIN 40 MG TAB PO SCH (21:56)
[2019-03-23] MEDS: CLOBETASOL 0.05% 15 GM OINT TOP SCH (21:57)
[2019-03-24] MEDS: KETOROLAC 30 MG INJ IV PRN ×2 (01:04→09:05)
[2019-03-24] MEDS: FUROSEMIDE 20 MG INJ IV SCH ×2 (06:26→18:26)
[2019-03-24 07:08] VITALS: BP 170/98; PULSE 114; RESP 20
[2019-03-24 07:40] VITALS: PULSE 112
[2019-03-24] MEDS: FOLIC ACID 1 MG TAB PO SCH (08:35)
[2019-03-24] MEDS: predniSONE 20 MG TAB PO SCH (08:35)
[2019-03-24] MEDS: NYSTATIN 30 GM POWDER BTL TOP SCH ×2 (08:36→21:38)
[2019-03-24] MEDS: LOSARTAN 50 MG TAB PO SCH (08:36)
[2019-03-24] MEDS: MOMETASONE 0.24 GM INHALER INH SCH ×2 (08:37→21:39)
[2019-03-24] MEDS: CLOBETASOL 0.05% 15 GM OINT TOP SCH ×2 (08:37→21:38)
[2019-03-24] MEDS: TRIAMCINOLONE ACET 0.025% 15 GM OINT TOP SCH ×3 (08:39→21:42)
[2019-03-24] MEDS: ENOXAPARIN 40 MG/0.4 ML SYG SC SCH (09:03)
[2019-03-24 11:23] VITALS: BP 139/83; PULSE 104; RESP 20
[2019-03-24] MEDS ORDERED: TRAM50TA2 PO (14:47)
[2019-03-24] MEDS ORDERED: FURO-110 PO (14:47)
[2019-03-24] MEDS ORDERED: morphine 2 MG INJ IV STA (17:10)
--- NOTE | 2019-03-24 17:15 | CONS ---
Assessment/Plan Assessment/Plan Assessment/Plan (Daily) Venous ulceration to left lower extremity Venous insufficiency Cellulitis Psoriasis Morbid obesity JANA Lymphedema Plan Consent was obtained and performed excisional debridement of skin/subQ of left foot venous ulceration site using a pickup and scissor. Skin slough and biofilm removed from wound site. Patient tolerated less than 20cm2 of debridement. Wound cultures were obtained. Irrigated wound site with chlorohexidine. Recommend daily dressing changes with dakins irrigation and xeroform and compression therapy. Patient's nails were debrided x10 with nail nipper. Non invasive vascular studies and x-rays ordered. Consultation Date/Type/Reason Admit Date/Time Mar 12, 2019 at 18:53 Date/Time of Note DATE: 03/24/19 TIME: 17:15 Hx of Present Illness 48 y/o M patient with history of respiratory failure requiring tracheostomy, morbid obesity, JANA, hypertension, and psoriasis, presents to the floor left foot blistering and pain with redness. Patient was admitted to the hospital for worsening shortness of breath. Patient states the blistering began two days ago and noticed pain along with with left foot. He does not recall any inciting event. Patient has been receiving BiPAP therapy while in house. ROS negative except for HPI Past Medical History history of respiratory failure requiring tracheostomy, JANA, hypertension, pso riasis, morbid obesity Home Meds Active Scripts Furosemide* (Lasix*) 20 Mg Tablet, 20 MG PO DAILY, #60 TAB Prov:TAMRA JOHNSON 03/24/19 Tramadol HCl (Tramadol HCl) 50 Mg Tablet, 100 MG PO Q6H PRN for MODERATE PAIN LEVEL 4-6, #30 TAB Prov:TAMRA JOHNSON 03/24/19 Reported Medications Triamcinolone Acetonide* (Kenalog*) 0.025%-15GM Oint, 1 APPLIC TOP TID, #1 EA 03/12/19 Prednisone* (Prednisone*) 20 Mg Tab, 20 MG PO BID, TAB 03/12/19 Methotrexate* (Methotrexate*) 2.5 Mg Tab, 27.5 MG PO for 7 Days, TAB 03/12/19 Metformin* (Glucophage*) 1,000 Mg Tablet, 1000 MG PO DAILY, #30 TAB 03/12/19 Losartan Potassium* (Losartan Potassium*) 50 Mg Tablet, 50 MG PO DAILY, TAB 03/12/19 Folic Acid* (Folic Acid*) 1 Mg Tablet, 1 MG PO DAILY, TAB 03/12/19 Cyanocobalamin/FA/Pyridoxine (Folbee Tablet) 1 Each Tablet, 1 EACH PO DAILY, TAB 03/12/19 Atorvastatin* (Atorvastatin*) 40 Mg Tablet, 40 MG PO QHS, #30 TAB 03/12/19 Albuterol Sulfate* (Ventolin HFA*) 18 Gm Hfa.aer.ad, 1 PUFF INHALATION Q4H for dyspnea, #1 INHALER 03/12/19 Acetazolamide* (Acetazolamide* ER) 500 Mg Capsule.er, 500 MG PO TID, #60 CAP 03/12/19 Methotrexate* (Methotrexate*) Unknown Strength Tab, PO, TAB 10/15/17 Medications Current Medications IV Flush (NS 3 ml) 3 ml PER PROTOCOL IV ; Start 03/12/19 at 22:30 Ondansetron HCl (Zofran Inj) 4 mg Q6H PRN IV NAUSEA/VOMITING; Start 03/12/19 at 22:30 Acetaminophen (Tylenol Tab) 650 mg Q6H PRN PO .PAIN 1-3 OR TEMP; Start 03/12/19 at 22:30 Enoxaparin Sodium (Lovenox) 40 mg DAILY SC Last administered on 03/24/19at 09:03; Admin Dose 40 MG; Start 03/13/19 at 09:00 Albuterol/ Ipratropium (Duoneb) 3 ml Q2H RESP THERAPY PRN HHN SHORTNESS OF BREATH Last administered on 03/23/19at 14:22; Admin Dose 3 ML; Start 03/12/19 at 22:30 Mometasone Furoate (Asmanex) 1 puff BID INH Last administered on 03/24/19at 08:37; Admin Dose 1 PUFF; Start 03/13/19 at 09:00 Atorvastatin Calcium (Lipitor) 40 mg QHS PO Last administered on 03/23/19at 21:56; Admin Dose 40 MG; Start 03/13/19 at 21:00 Folic Acid (Folic Acid) 1 mg DAILY PO Last administered on 03/24/19 08:35; Admin Dose 1 MG; Start 03/13/19 at 09:00 Losartan Potassium (Cozaar) 50 mg DAILY PO Last administered on 03/24/19at 08:36; Admin Dose 50 MG; Start 03/13/19 at 09:00 Miscellaneous Information Patients own medicat... BID@10,16 XX Last administered on 03/18/19 16:27; Admin Dose 1 EA; Start 03/14/19 at 10:00 Diphenhydramine HCl (Benadryl) 25 mg Q6H PRN PO ITCHING Last administered on 03/23/19 02:54; Admin Dose 25 MG; Start 03/15/19 at 03:30 Non-Formulary Medication 1 ea TID TOP Last administered on 03/24/19 16:36; A dmin Dose 1 EA; Start 03/15/19 at 21:00 Guaifenesin (Robitussin Liquid Cup) 100 mg Q4H PRN PO COUGH Last administered on 03/18/19 05:45; Admin Dose 100 MG; Start 03/17/19 at 19:30 Nystatin (Nystatin Powder) 1 applic BID TOP Last administered on 03/24/19 08:36; Admin Dose 1 APPLIC; Start 03/18/19 at 13:30 Furosemide (Lasix) 20 mg BID DIURETICS IV Last administered on 03/24/19 06:26; Admin Dose 20 MG; Start 03/20/19 at 09:30 Prednisone (Prednisone) 40 mg DAILY PO Last administered on 03/24/19 08:35; Admin Dose 40 MG; Start 03/22/19 at 09:00 Ketorolac Tromethamine (Toradol) 30 mg Q6H PRN IV PAIN LEVEL 1-3 Last administered on 03/24/19 09:05; Admin Dose 30 MG; Start 03/23/19 at 12:00; Stop 03/26/19 at 11:59 Clobetasol Propionate (Temovate 0.05% Oint) 1 applic BID TOP Last administered on 03/24/19 08:37; Admin Dose 1 APPLIC; Start 03/23/19 at 21:00 Tramadol HCl (Ultram) 100 mg Q6H PRN PO MODERATE PAIN LEVEL 4-6; Start 03/24/19 at 12:30 Morphine Sulfate (morphine) 2 mg ONCE STAT IV ; Start 03/24/19 at 17:10; Stop 03/24/19 at 17:11; Status UNV Allergies: Coded Allergies: No Known Allergy (Unverified , 03/12/19) Past Surgical History none reported Past Surgical Hx: other (See HPI) Family History Significant Family History: no pertinent family hx Social History Alcohol Use: none Smoking Status: Never smoker Drug Use: none Exam/Review of Systems Exam Vitals Vital Signs Date Temp Pulse Resp B/P (MAP) Pulse Ox O2 O2 Flow FiO2 Time Delivery Rate 03/24/19 98.6 104 20 139/83 99 Nasal 4.0 11:23 (101) Cannula 03/22/19 40 09:45 Intake and Output 03/23/19 03/23/19 03/24/19 1515:00 23:00 07:00 IntakeIntake Total 1600 ml 2500 ml OutputOutput Total 750 ml 1600 ml BalanceBalance 850 ml 900 ml Exam DP/PT pulses non palpable Severe 4+ pitting edema with cobblestone appreciated to lower extremities. Generalized weeping of serous fluid noted to bilateral lower extremities Left foot/ankle region with multiple skin seroma formations. Erythema appreciated to bilateral lower extremity. Skin plaques appreciated to bilateral lower extremity Protective sensations intact pain on palpation to medial aspect of the left foot and ankle region. Muscle strength 5/5 in all compartments of the foot. Thickened elongated toe nails x10 Results Result Diagram: 03/22/19 0750 03/23/19 0640 Medications Medication Current Medications IV Flush (NS 3 ml) 3 ml PER PROTOCOL IV ; Start 03/12/19 at 22:30 Ondansetron HCl (Zofran Inj) 4 mg Q6H PRN IV NAUSEA/VOMITING; Start 03/12/19 at 22:30 Acetaminophen (Tylenol Tab) 650 mg Q6H PRN PO .PAIN 1-3 OR TEMP; Start 03/12/19 at 22:30 Enoxaparin Sodium (Lovenox) 40 mg DAILY SC Last administered on 03/24/19at 09:03; Admin Dose 40 MG; Start 03/13/19 at 09:00 Albuterol/ Ipratropium (Duoneb) 3 ml Q2H RESP THERAPY PRN HHN SHORTNESS OF BREATH Last administered on 03/23/19at 14:22; Admin Dose 3 ML; Start 03/12/19 at 22:30 Mometasone Furoate (Asmanex) 1 puff BID INH Last administered on 03/24/19at 08:37; Admin Dose 1 PUFF; Start 03/13/19 at 09:00 Atorvastatin Calcium (Lipitor) 40 mg QHS PO Last administered on 03/23/19 21:56; Admin Dose 40 MG; Start 03/13/19 at 21:00 Folic Acid (Folic Acid) 1 mg DAILY PO Last administered on 03/24/19 08:35; Admin Dose 1 MG; Start 03/13/19 at 09:00 Losartan Potassium (Cozaar) 50 mg DAILY PO Last administered on 03/24/19 08:36; Admin Dose 50 MG; Start 03/13/19 at 09:00 Miscellaneous Information Patients own medicat... BID@10,16 XX Last administered on 03/18/19 16:27; Admin Dose 1 EA; Start 03/14/19 at 10:00 Diphenhydramine HCl (Benadryl) 25 mg Q6H PRN PO ITCHING Last administered on 03/23/19 02:54; Admin Dose 25 MG; Start 03/15/19 at 03:30 Non-Formulary Medication 1 ea TID TOP Last administered on 03/24/19 16:36; Admin Dose 1 EA; Start 03/15/19 at 21:00 Guaifenesin (Robitussin Liquid Cup) 100 mg Q4H PRN PO COUGH Last administered on 03/18/19 05:45; Admin Dose 100 MG; Start 03/17/19 at 19:30 Nystatin (Nystatin Powder) 1 applic BID TOP Last administered on 03/24/19 08:36; Admin Dose 1 APPLIC; Start 03/18/19 at 13:30 Furosemide (Lasix) 20 mg BID DIURETICS IV Last administered on 03/24/19 06 :26; Admin Dose 20 MG; Start 03/20/19 at 09:30 Prednisone (Prednisone) 40 mg DAILY PO Last administered on 03/24/19 08:35; Admin Dose 40 MG; Start 03/22/19 at 09:00 Ketorolac Tromethamine (Toradol) 30 mg Q6H PRN IV PAIN LEVEL 1-3 Last administered on 03/24/19 09:05; Admin Dose 30 MG; Start 03/23/19 at 12:00; Stop 03/26/19 at 11:59 Clobetasol Propionate (Temovate 0.05% Oint) 1 applic BID TOP Last administered on 03/24/19at 08:37; Admin Dose 1 APPLIC; Start 03/23/19 at 21:00 Tramadol HCl (Ultram) 100 mg Q6H PRN PO MODERATE PAIN LEVEL 4-6; Start 03/24/19 at 12:30 Morphine Sulfate (morphine) 2 mg ONCE STAT IV ; Start 03/24/19 at 17:10; Stop 03/24/19 at 17:11; Status BROOKE CLINTON DPM Mar 24, 2019 17:15
--- NOTE | 2019-03-24 18:01 | PN ---
Date/Time of Note Date/Time of Note DATE: 03/24/19 TIME: 18:00 Assessment/Plan VTE Prophylaxis Risk score (from Nsg)>0 risk: 7 Pharmacological prophylaxis: NA/contraindicated Pharm contraindication: low risk/ambulating Lines/Catheters IV Catheter Type (from Nrsg): Saline Lock Urinary Cath still in place: No Assessment/Plan Hospital Course OHS with chronic hypercapnic respiratory failure - Continue nocturnal BIPAP for OHS Acute diastolic CHF: - Requires continued diuresis, Lasix was being held secondary to contraction alkalosis but have resumed today Psoriasis: -Continue systemic prednisone course and s/p methotrexate dose. Can dc prednisone in coming days - Topical steroids started, follow up as outpatient Morbid obesity: - Counseled - Weight loss surgery planned as outpatient Venous insufficiency ulcer of the left foot -Podiatry consultation appreciated, plan is for debridement Dc to [facility], claims he is unable to care for himself at home independently Result Diagram: 03/22/19 0750 03/23/19 0640 Subjective 24 Hr Interval Summary Skin: skin lesions Exam/Review of Systems Exam Vitals Vital Signs Date Temp Pulse Resp B/P (MAP) Pulse Ox O2 O2 Flow FiO2 Time Delivery Rate 03/24/19 98 5.0 17:19 03/24/19 98.6 104 20 139/83 Nasal 11:23 (101) Cannula 03/22/19 40 09:45 Intake and Output 03/23/19 03/23/19 03/24/19 1414:59 22:59 06:59 IntakeIntake Total 750 ml 1600 ml 2500 ml OutputOutput Total 850 ml 750 ml 1600 ml BalanceBalance -100 ml 850 ml 900 ml Constitutional: alert, oriented Respiratory: clear to auscultation Cardiovascular: regular rate and rhythm Gastrointestinal: soft; No distended Musculoskeletal: No nl extremities to inspection Medications Medication Current Medications IV Flush (NS 3 ml) 3 ml PER PROTOCOL IV ; Start 03/12/19 at 22:30 Ondansetron HCl (Zofran Inj) 4 mg Q6H PRN IV NAUSEA/VOMITING; Start 03/12/19 at 22:30 Acetaminophen (Tylenol Tab) 650 mg Q6H PRN PO .PAIN 1-3 OR TEMP; Start 03/12/19 at 22:30 Enoxaparin Sodium (Lovenox) 40 mg DAILY SC Last administered on 03/24/19 09:03; Admin Dose 40 MG; Start 03/13/19 at 09:00 Albuterol/ Ipratropium (Duoneb) 3 ml Q2H RESP THERAPY PRN HHN SHORTNESS OF BREATH Last administered on 03/23/19 14:22; Admin Dose 3 ML; Start 03/12/19 at 22:30 Mometasone Furoate (Asmanex) 1 puff BID INH Last administered on 03/24/19 08:37; Admin Dose 1 PUFF; Start 03/13/19 at 09:00 Atorvastatin Calcium (Lipitor) 40 mg QHS PO Last administered on 03/23/19 21:56; Admin Dose 40 MG; Start 03/13/19 at 21:00 Folic Acid (Folic Acid) 1 mg DAILY PO Last administered on 03/24/19 08:35; Admin Dose 1 MG; Start 03/13/19 at 09:00 Losartan Potassium (Cozaar) 50 mg DAILY PO Last administered on 03/24/19 08:36; Admin Dose 50 MG; Start 03/13/19 at 09:00 Miscellaneous Information Patients own medicat... BID@10,16 XX Last administered on 03/18/19 16:27; Admin Dose 1 EA; Start 03/14/19 at 10:00 Diphenhydramine HCl (Benadryl) 25 mg Q6H PRN PO ITCHING Last administered on 03/23/19 02:54; Admin Dose 25 MG; Start 03/15/19 at 03:30 Non-Formulary Medication 1 ea TID TOP Last administered on 03/24/19 16:36; Admin Dose 1 EA; Start 03/15/19 at 21:00 Guaifenesin (Robitussin Liquid Cup) 100 mg Q4H PRN PO COUGH Last administered on 03/18/19 05:45; Admin Dose 100 MG; Start 03/17/19 at 19:30 Nystatin (Nystatin Powder) 1 applic BID TOP Last administered on 03/24/19 08:36; Admin Dose 1 APPLIC; Start 03/18/19 at 13:30 Furosemide (Lasix) 20 mg BID DIURETICS IV Last administered on 03/24/19 06:26; Admin Dose 20 MG; Start 03/20/19 at 09:30 Prednisone (Prednisone) 40 mg DAILY PO Last administered on 03/24/19at 08:35; Admin Dose 40 MG; Start 03/22/19 at 09:00 Ketorolac Tromethamine (Toradol) 30 mg Q6H PRN IV PAIN LEVEL 1-3 Last administered on 03/24/19at 09:05; Admin Dose 30 MG; Start 03/23/19 at 12:00; Stop 03/26/19 at 11:59 Clobetasol Propionate (Temovate 0.05% Oint) 1 applic BID TOP Last administered on 03/24/19at 08:37; Admin Dose 1 APPLIC; Start 03/23/19 at 21:00 Tramadol HCl (Ultram) 100 mg Q6H PRN PO MODERATE PAIN LEVEL 4-6; Start 03/24/19 at 12:30 TAMRA JOHNSON Mar 24, 2019 18:01
[2019-03-24 20:00] VITALS: BP 136/88; PULSE 95; RESP 19
[2019-03-24] MEDS: ATORVASTATIN 40 MG TAB PO SCH (21:38)
[2019-03-25] VITALS: BP 132/74; PULSE 108; RESP 20
[2019-03-25] MEDS: KETOROLAC 30 MG INJ IV PRN (00:07)
[2019-03-25 04:00] VITALS: BP 136/78; PULSE 103; RESP 20
[2019-03-25] MEDS: FUROSEMIDE 20 MG INJ IV SCH ×2 (06:40→17:34)
[2019-03-25 07:25] VITALS: BP 146/78; PULSE 112; RESP 19
[2019-03-25] MEDS: FOLIC ACID 1 MG TAB PO SCH (09:10)
[2019-03-25] MEDS: LOSARTAN 50 MG TAB PO SCH (09:10)
[2019-03-25] MEDS: MOMETASONE 0.24 GM INHALER INH SCH ×2 (09:10→20:48)
[2019-03-25] MEDS: predniSONE 20 MG TAB PO SCH (09:10)
[2019-03-25] MEDS: NYSTATIN 30 GM POWDER BTL TOP SCH ×2 (09:11→20:47)
[2019-03-25] MEDS: CLOBETASOL 0.05% 15 GM OINT TOP SCH ×2 (09:11→20:47)
[2019-03-25] MEDS: TRIAMCINOLONE ACET 0.025% 15 GM OINT TOP SCH ×2 (09:11→12:52)
[2019-03-25 11:20] VITALS: BP 165/88; PULSE 111; RESP 19
[2019-03-25] MEDS: ENOXAPARIN 40 MG/0.4 ML SYG SC SCH (11:30)
[2019-03-25 15:39] VITALS: BP 128/60; PULSE 120; RESP 18
[2019-03-25] MEDS: DAKINS 0.0125%(1/40) 473 ML SOLUTION TP SCH (16:30)
--- NOTE | 2019-03-25 19:36 | CONS ---
Assessment/Plan Assessment/Plan Assessment/Plan (Daily) Venous ulceration to left lower extremity Venous insufficiency Cellulitis Psoriasis Morbid obesity JANA Lymphedema Plan Wound cultures showing staph species. Continue daily dressing changes with dakins irrigation and xeroform and compression therapy. Patient would benefit from lymphedema pumps for detention management of lower extremity swelling. Non invasive vascular studies performed and were unable to visualize vessels. and x- rays did not show any fracture fragments, dislocations, or any cortical disruptions. Continue with local wound care. Patient will benefit from SNF placement. Consultation Date/Type/Reason Admit Date/Time Mar 12, 2019 at 18:53 Initial Consult Date 03/13/19 Date/Time of Note DATE: 03/25/19 TIME: 19:36 24 HR Interval Summary Free Text/Dictation No acute events overnight. Exam/Review of Systems Exam Vitals Vital Signs Date Temp Pulse Resp B/P (MAP) Pulse Ox O2 O2 Flow FiO2 Time Delivery Rate 03/25/19 4.0 16:53 03/25/19 98.2 120 18 128/60 93 15:39 (82) 03/25/19 Nasal 11:20 Cannula 03/22/19 40 09:45 Intake and Output 03/24/19 03/24/19 03/25/19 1515:00 23:00 07:00 IntakeIntake Total 2200 ml OutputOutput Total 1500 ml BalanceBalance 700 ml Exam DP/PT pulses non palpable Severe 4+ pitting edema with cobblestone appreciated to lower extremities. Generalized weeping of serous fluid noted to bilateral lower extremities with multiple serous blister formations Left foot/ankle region with multiple skin seroma formations. Erythema appreciated to bilateral lower extremity. Skin plaques appreciated to bilateral lower extremity Left medial foot/ankle region with ulceration 8 x 7 x 0.2cm serous drainage, no probing to bone, no purulence appreciated. Lateral left foot with focal locations of seroma formations. Protective sensations intact pain on palpation to medial aspect of the left foot and ankle region. Muscle strength 5/5 in all compartments of the foot. Thickened elongated toe nails x10 Results Result Diagram: 03/22/19 0750 03/23/19 0640 Medications Medication Current Medications IV Flush (NS 3 ml) 3 ml PER PROTOCOL IV ; Start 03/12/19 at 22:30 Ondansetron HCl (Zofran Inj) 4 mg Q6H PRN IV NAUSEA/VOMITING; Start 03/12/19 at 22:30 Acetaminophen (Tylenol Tab) 650 mg Q6H PRN PO .PAIN 1-3 OR TEMP; Start 03/12/19 at 22:30 Enoxaparin Sodium (Lovenox) 40 mg DAILY SC Last administered on 03/25/19 11:30; Admin Dose 40 MG; Start 03/13/19 at 09:00 Albuterol/ Ipratropium (Duoneb) 3 ml Q2H RESP THERAPY PRN HHN SHORTNESS OF BREATH Last administered on 03/23/19 14:22; Admin Dose 3 ML; Start 03/12/19 at 22:30 Mometasone Furoate (Asmanex) 1 puff BID INH Last administered on 03/25/19 09:10; Admin Dose 1 PUFF; Start 03/13/19 at 09:00 Atorvastatin Calcium (Lipitor) 40 mg QHS PO Last administered on 03/24/19 21:38; Admin Dose 40 MG; Start 03/13/19 at 21:00 Folic Acid (Folic Acid) 1 mg DAILY PO Last administered on 03/25/19 09:10; Admin Dose 1 MG; Start 03/13/19 at 09:00 Losartan Potassium (Cozaar) 50 mg DAILY PO Last administered on 03/25/19 09:10; Admin Dose 50 MG; Start 03/13/19 at 09:00 Miscellaneous Information Patients own medicat... BID@10,16 XX Last administered on 03/18/19 16:27; Admin Dose 1 EA; Start 03/14/19 at 10:00 Diphenhydramine HCl (Benadryl) 25 mg Q6H PRN PO ITCHING Last administered on 03/23/19 02:54; Admin Dose 25 MG; Start 03/15/19 at 03:30 Non-Formulary Medication 1 ea TID TOP Last administered on 03/25/19 12:52; Admin Dose 1 EA; Start 03/15/19 at 21:00 Guaifenesin (Robitussin Liquid Cup) 100 mg Q4H PRN PO COUGH Last administered on 03/18/19 05:45; Admin Dose 100 MG; Start 03/17/19 at 19:30 Nystatin (Nystatin Powder) 1 applic BID TOP Last administered on 03/25/19 09:11; Admin Dose 1 APPLIC; Start 03/18/19 at 13:30 Furosemide (Lasix) 20 mg BID DIURETICS IV Last administered on 03/25/19 17:34; Admin Dose 20 MG; Start 03/20/19 at 09:30 Prednisone (Prednisone) 40 mg DAILY PO Last administered on 03/25/19 09:10; Admin Dose 40 MG; Start 03/22/19 at 09:00 Ketorolac Tromethamine (Toradol) 30 mg Q6H PRN IV PAIN LEVEL 1-3 Last administered on 03/25/19 00:07; Admin Dose 30 MG; Start 03/23/19 at 12:00; St op 03/26/19 at 11:59 Clobetasol Propionate (Temovate 0.05% Oint) 1 applic BID TOP Last administered on 03/25/19 09:11; Admin Dose 1 APPLIC; Start 03/23/19 at 21:00 Tramadol HCl (Ultram) 100 mg Q6H PRN PO MODERATE PAIN LEVEL 4-6; Start 03/24/19 at 12:30 Sodium Hypochlorite (Dakins Diluted (40)) 1 applic DAILY TP Last administered on 03/25/19 16:30; Admin Dose 1 APPLIC; Start 03/25/19 at 16:30 BROOKE ADAMSON DPM Mar 25, 2019 19:36
[2019-03-25 20:00] VITALS: BP 169/77; PULSE 108; RESP 19
[2019-03-25] MEDS: ATORVASTATIN 40 MG TAB PO SCH (20:47)
[2019-03-26] VITALS (7 sets, daily range): BP systolic 119–165; BP diastolic 71–91; PULSE 94–116; RESP 18–22
[2019-03-26] MEDS: TRIAMCINOLONE ACET 0.025% 15 GM OINT TOP SCH ×4 (00:55→20:54)
[2019-03-26] MEDS: KETOROLAC 30 MG INJ IV PRN (02:55)
[2019-03-26] MEDS: FUROSEMIDE 20 MG INJ IV SCH ×5 (05:04→21:07)
[2019-03-26] MEDS: NYSTATIN 30 GM POWDER BTL TOP SCH ×2 (08:35→20:54)
[2019-03-26] MEDS: FOLIC ACID 1 MG TAB PO SCH (08:36)
[2019-03-26] MEDS: predniSONE 20 MG TAB PO SCH (08:36)
[2019-03-26] MEDS: MOMETASONE 0.24 GM INHALER INH SCH ×2 (08:36→20:53)
[2019-03-26] MEDS: DAKINS 0.0125%(1/40) 473 ML SOLUTION TP SCH (08:38)
[2019-03-26] MEDS: LOSARTAN 50 MG TAB PO SCH (08:40)
[2019-03-26] MEDS: CLOBETASOL 0.05% 15 GM OINT TOP SCH ×2 (08:52→21:00)
[2019-03-26] MEDS: ENOXAPARIN 40 MG/0.4 ML SYG SC SCH (08:52)
[2019-03-26] MEDS: DIPHENHYDRAMINE 25 MG CAP PO PRN (08:54)
[2019-03-26] MEDS: traMADol 50 MG TAB PO PRN (13:27)
[2019-03-26] MEDS ORDERED: METHOTREXATE 2.5 MG TAB PO SCH (13:30)
[2019-03-26] MEDS: ALBUTEROL/IPRATROPIUM (NEB) 3 ML AMP HHN PRN ×2 (15:28→21:07)
[2019-03-26] MEDS ORDERED: CALAMINE 170 ML LOT TOP PRN (16:00)
--- NOTE | 2019-03-26 16:09 | PN ---
Date/Time of Note Date/Time of Note DATE: 03/26/19 TIME: 16:09 Assessment/Plan VTE Prophylaxis Risk score (from Nsg)>0 risk: 5 Pharmacological prophylaxis: NA/contraindicated Pharm contraindication: low risk/ambulating Lines/Catheters IV Catheter Type (from Nrsg): Saline Lock Urinary Cath still in place: No Assessment/Plan Hospital Course OHS with chronic hypercapnic respiratory failure - Continue nocturnal BIPAP for OHS Acute diastolic CHF: - Requires continued diuresis, Lasix was being held secondary to contraction alkalosis but have resumed today Psoriasis: -Continue systemic prednisone course and s/p methotrexate dose. Can dc prednisone in coming days - Topical steroids started, follow up as outpatient Morbid obesity: - Counseled - Weight loss surgery planned as outpatient Venous insufficiency ulcer of the left foot -Podiatry consultation appreciated, plan is for debridement Dc to congregate living, claims he is unable to care for himself at home independently Result Diagram: 03/22/19 0750 03/23/19 0640 Subjective 24 Hr Interval Summary Constitutional: no complaints Exam/Review of Systems Exam Vitals Vital Signs Date Temp Pulse Resp B/P (MAP) Pulse Ox O2 O2 Flow FiO2 Time Delivery Rate 03/26/19 99 22 98 Nasal 4.0 15:28 Cannula 03/26/19 97.8 160/71 11:43 (100) 03/22/19 40 09:45 Intake and Output 03/25/19 03/25/19 03/26/19 1414:59 22:59 06:59 IntakeIntake Total 1000 ml OutputOutput Total 800 ml BalanceBalance 200 ml Constitutional: alert, oriented Respiratory: clear to auscultation Cardiovascular: regular rate and rhythm Gastrointestinal: soft; No distended Musculoskeletal: nl extremities to inspection Medications Medication Current Medications IV Flush (NS 3 ml) 3 ml PER PROTOCOL IV ; Start 03/12/19 at 22:30 Ondansetron HCl (Zofran Inj) 4 mg Q6H PRN IV NAUSEA/VOMITING; Start 03/12/19 at 22:30 Acetaminophen (Tylenol Tab) 650 mg Q6H PRN PO .PAIN 1-3 OR TEMP; Start 03/12/19 at 22:30 Enoxaparin Sodium (Lovenox) 40 mg DAILY SC Last administered on 03/26/19at 08:52; Admin Dose 40 MG; Start 03/13/19 at 09:00 Albuterol/ Ipratropium (Duoneb) 3 ml Q2H RESP THERAPY PRN HHN SHORTNESS OF BREATH Last administered on 03/26/19 15:28; Admin Dose 3 ML; Start 03/12/19 at 22:30 Mometasone Furoate (Asmanex) 1 puff BID INH Last administered on 03/26/19 08:36; Admin Dose 1 PUFF; Start 03/13/19 at 09:00 Atorvastatin Calcium (Lipitor) 40 mg QHS PO Last administered on 03/25/19 20:47; Admin Dose 40 MG; Start 03/13/19 at 21:00 Folic Acid (Folic Acid) 1 mg DAILY PO Last administered on 03/26/19 08:36; Admin Dose 1 MG; Start 03/13/19 at 09:00 Losartan Potassium (Cozaar) 50 mg DAILY PO Last administered on 03/26/19 08:40; Admin Dose 50 MG; Start 03/13/19 at 09:00 Miscellaneous Information Patients own medicat... BID@10,16 XX Last administered on 03/18/19 16:27; Admin Dose 1 EA; Start 03/14/19 at 10:00 Diphenhydramine HCl (Benadryl) 25 mg Q6H PRN PO ITCHING Last administered on 03/26/19 08:54; Admin Dose 25 MG; Start 03/15/19 at 03:30 Non-Formulary Medication 1 ea TID TOP Last administered on 03/26/19 13:12; Admin Dose 1 EA; Start 03/15/19 at 21:00 Guaifenesin (Robitussin Liquid Cup) 100 mg Q4H PRN PO COUGH Last administered on 03/18/19 05:45; Admin Dose 100 MG; Start 03/17/19 at 19:30 Nystatin (Nystatin Powder) 1 applic BID TOP Last administered on 03/26/19 08:35; Admin Dose 1 APPLIC; Start 03/18/19 at 13:30 Furosemide (Lasix) 20 mg BID DIURETICS IV Last administered on 03/26/19 06:00; Admin Dose 20 MG; Start 03/20/19 at 09:30 Prednisone (Prednisone) 40 mg DAILY PO Last administered on 03/26/19 08:36; Admin Dose 40 MG; Start 03/22/19 at 09:00 Clobetasol Propionate (Temovate 0.05% Oint) 1 applic BID TOP Last administered on 03/26/19 08:52; Admin Dose 1 APPLIC; Start 03/23/19 at 21:00 Tramadol HCl (Ultram) 100 mg Q6H PRN PO MODERATE PAIN LEVEL 4-6 Last administered on 03/26/19 13:27; Admin Dose 100 MG; Start 03/24/19 at 12:30 Sodium Hypochlorite (Dakins Diluted ()) 1 applic DAILY TP Last administered on 03/26/19 08:38; Admin Dose 1 APPLIC; Start 03/25/19 at 16:30 Methotrexate (Methotrexate) 27.5 mg ONCE PO Last administered on 03/26/19 1 3:30; Admin Dose 27.5 MG; Start 03/26/19 at 13:30; Stop 03/26/19 at 23:30 Calamine (Calamine Lotion) 1 applic BID PRN TOP ITCHING; Start 03/26/19 at 16:00 TAMRA JOHNSON Mar 26, 2019 16:09
--- NOTE | 2019-03-26 16:10 | PN ---
Date/Time of Note Date/Time of Note DATE: 03/26/19 TIME: 16:10 Assessment/Plan VTE Prophylaxis Risk score (from Nsg)>0 risk: 5 Pharmacological prophylaxis: NA/contraindicated Pharm contraindication: low risk/ambulating Lines/Catheters IV Catheter Type (from Nrsg): Saline Lock Urinary Cath still in place: No Assessment/Plan Hospital Course OHS with chronic hypercapnic respiratory failure - Continue nocturnal BIPAP for OHS Acute diastolic CHF: - Requires continued diuresis, Lasix was being held secondary to contraction alkalosis but have resumed today Psoriasis: -Continue systemic prednisone course and s/p methotrexate dose. Can dc prednisone in coming days - Topical steroids started, follow up as outpatient Morbid obesity: - Counseled - Weight loss surgery planned as outpatient Venous insufficiency ulcer of the left foot -Podiatry consultation appreciated, plan is for debridement Dc to congregate living, claims he is unable to care for himself at home independently Result Diagram: 03/22/19 0750 03/23/19 0640 Subjective 24 Hr Interval Summary Free Text/Dictation Late entry for 03/25/2019 Constitutional: no complaints Exam/Review of Systems Exam Vitals Vital Signs Date Temp Pulse Resp B/P (MAP) Pulse Ox O2 O2 Flow FiO2 Time Delivery Rate 03/26/19 99 22 98 Nasal 4.0 15:28 Cannula 03/26/19 97.8 160/71 11:43 (100) 03/22/19 40 09:45 Intake and Output 03/25/19 03/25/19 03/26/19 1414:59 22:59 06:59 IntakeIntake Total 1000 ml OutputOutput Total 800 ml BalanceBalance 200 ml Constitutional: alert, oriented Respiratory: clear to auscultation Cardiovascular: regular rate and rhythm Gastrointestinal: soft; No distended Musculoskeletal: No nl extremities to inspection Medications Medication Current Medications IV Flush (NS 3 ml) 3 ml PER PROTOCOL IV ; Start 03/12/19 at 22:30 Ondansetron HCl (Zofran Inj) 4 mg Q6H PRN IV NAUSEA/VOMITING; Start 03/12/19 at 22:30 Acetaminophen (Tylenol Tab) 650 mg Q6H PRN PO .PAIN 1-3 OR TEMP; Start 03/12/19 at 22:30 Enoxaparin Sodium (Lovenox) 40 mg DAILY SC Last administered on 03/26/19 08:52; Admin Dose 40 MG; Start 03/13/19 at 09:00 Albuterol/ Ipratropium (Duoneb) 3 ml Q2H RESP THERAPY PRN HHN SHORTNESS OF BREATH Last administered on 03/26/19 15:28; Admin Dose 3 ML; Start 03/12/19 at 22:30 Mometasone Furoate (Asmanex) 1 puff BID INH Last administered on 03/26/19 08:36; Admin Dose 1 PUFF; Start 03/13/19 at 09:00 Atorvastatin Calcium (Lipitor) 40 mg QHS PO Last administered on 03/25/19 20:47; Admin Dose 40 MG; Start 03/13/19 at 21:00 Folic Acid (Folic Acid) 1 mg DAILY PO Last administered on 03/26/19 08:36; Admin Dose 1 MG; Start 03/13/19 at 09:00 Losartan Potassium (Cozaar) 50 mg DAILY PO Last administered on 03/26/19 08:40; Admin Dose 50 MG; Start 03/13/19 at 09:00 Miscellaneous Information Patients own medicat... BID@10,16 XX Last administered on 03/18/19 16:27; Admin Dose 1 EA; Start 03/14/19 at 10:00 Diphenhydramine HCl (Benadryl) 25 mg Q6H PRN PO ITCHING Last administered on 03/26/19 08:54; Admin Dose 25 MG; Start 03/15/19 at 03:30 Non-Formulary Medication 1 ea TID TOP Last administered on 03/26/19 13:12; Admin Dose 1 EA; Start 03/15/19 at 21:00 Guaifenesin (Robitussin Liquid Cup) 100 mg Q4H PRN PO COUGH Last administered on 03/18/19 05:45; Admin Dose 100 MG; Start 03/17/19 at 19:30 Nystatin (Nystatin Powder) 1 applic BID TOP Last administered on 03/26/19 08:35; Admin Dose 1 APPLIC; Start 03/18/19 at 13:30 Furosemide (Lasix) 20 mg BID DIURETICS IV Last administered on 03/26/19 06:00; Admin Dose 20 MG; Start 03/20/19 at 09:30 Prednisone (Prednisone) 40 mg DAILY PO Last administered on 03/26/19 08:36; Admin Dose 40 MG; Start 03/22/19 at 09:00 Clobetasol Propionate (Temovate 0.05% Oint) 1 applic BID TOP Last administered on 03/26/19 08:52; Admin Dose 1 APPLIC; Start 03/23/19 at 21:00 Tramadol HCl (Ultram) 100 mg Q6H PRN PO MODERATE PAIN LEVEL 4-6 Last administered on 03/26/19 13:27; Admin Dose 100 MG; Start 03/24/19 at 12:30 Sodium Hypochlorite (Dakins Diluted ()) 1 applic DAILY TP Last administered on 03/26/19 08:38; Admin Dose 1 APPLIC; Start 03/25/19 at 16:30 Methotrexate (Methotrexate) 27.5 mg ONCE PO Last administered on 03/26/19 13:30; Admin Dose 27.5 MG; Start 03/26/19 at 13:30; Stop 03/26/19 at 23:30 Calamine (Calamine Lotion) 1 applic BID PRN TOP ITCHING; Start 03/26/19 at 16:00 TAMRA JOHNSON Mar 26, 2019 16:10
--- NOTE | 2019-03-26 19:57 | CONS ---
Assessment/Plan Assessment/Plan Assessment/Plan (Daily) Venous ulceration to left lower extremity Venous insufficiency Cellulitis Psoriasis Morbid obesity JANA Lymphedema Plan Wound cultures showing staph aureus, staph coag neg, diptheroids, gram neg rods. Continue daily dressing changes with dakins irrigation and xeroform and compression therapy. 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 Non invasive vascular studies performed and were unable to visualize vessels. and bilateral x-rays did not show any fracture fragments, dislocations, or any cortical disruptions. Continue with local wound care. Patient will benefit from SNF placement. Consultation Date/Type/Reason Admit Date/Time Mar 12, 2019 at 18:53 Initial Consult Date 03/13/19 Date/Time of Note DATE: 03/26/19 TIME: 19:57 24 HR Interval Summary Free Text/Dictation No acute events overnight. Exam/Review of Systems Exam Vitals Vital Signs Date Temp Pulse Resp B/P (MAP) Pulse Ox O2 O2 Flow FiO2 Time Delivery Rate 03/26/19 98.7 94 21 158/73 91 19:36 (101) 03/26/19 4.0 16:31 03/26/19 Nasal 16:00 Cannula 03/22/19 40 09:45 Intake and Output 03/25/19 03/25/19 03/26/19 1515:00 23:00 07:00 IntakeIntake Total 1000 ml OutputOutput Total 800 ml BalanceBalance 200 ml Exam DP/PT pulses non palpable Severe 4+ pitting edema with cobblestone appreciated to lower extremities. Generalized weeping of serous fluid noted to bilateral lower extremities with multiple serous blister formations Left foot/ankle region with multiple skin seroma formations. Erythema appreciated to bilateral lower extremity. Skin plaques appreciated to bilateral lower extremity Left medial foot/ankle region with ulceration 8 x 7 x 0.2cm serous drainage, no probing to bone, no purulence appreciated. Lateral left foot with focal locations of seroma formations. Protective sensations intact pain on palpation to medial aspect of the left foot and ankle region. Muscle strength 5/5 in all compartments of the foot. Thickened elongated toe nails x10 Results Result Diagram: 03/22/19 0750 03/23/19 0640 Medications Medication Current Medications IV Flush (NS 3 ml) 3 ml PER PROTOCOL IV ; Start 03/12/19 at 22:30 Ondansetron HCl (Zofran Inj) 4 mg Q6H PRN IV NAUSEA/VOMITING; Start 03/12/19 at 22:30 Acetaminophen (Tylenol Tab) 650 mg Q6H PRN PO .PAIN 1-3 OR TEMP; Start 03/12/19 at 22:30 Enoxaparin Sodium (Lovenox) 40 mg DAILY SC Last administered on 03/26/19 08:52; Admin Dose 40 MG; Start 03/13/19 at 09:00 Albuterol/ Ipratropium (Duoneb) 3 ml Q2H RESP THERAPY PRN HHN SHORTNESS OF BREATH Last administered on 03/26/19 15:28; Admin Dose 3 ML; Start 03/12/19 at 22:30 Mometasone Furoate (Asmanex) 1 puff BID INH Last administered on 03/26/19 08:36; Admin Dose 1 PUFF; Start 03/13/19 at 09:00 Atorvastatin Calcium (Lipitor) 40 mg QHS PO Last administered on 03/25/19 2 0:47; Admin Dose 40 MG; Start 03/13/19 at 21:00 Folic Acid (Folic Acid) 1 mg DAILY PO Last administered on 03/26/19 08:36; Admin Dose 1 MG; Start 03/13/19 at 09:00 Losartan Potassium (Cozaar) 50 mg DAILY PO Last administered on 03/26/19 08:40; Admin Dose 50 MG; Start 03/13/19 at 09:00 Miscellaneous Information Patients own medicat... BID@10,16 XX Last administered on 03/18/19 16:27; Admin Dose 1 EA; Start 03/14/19 at 10:00 Diphenhydramine HCl (Benadryl) 25 mg Q6H PRN PO ITCHING Last administered on 03/26/19 08:54; Admin Dose 25 MG; Start 03/15/19 at 03:30 Non-Formulary Medication 1 ea TID TOP Last administered on 03/26/19 13:12; Admin Dose 1 EA; Start 03/15/19 at 21:00 Guaifenesin (Robitussin Liquid Cup) 100 mg Q4H PRN PO COUGH Last administered on 03/18/19 05:45; Admin Dose 100 MG; Start 03/17/19 at 19:30 Nystatin (Nystatin Powder) 1 applic BID TOP Last administered on 03/26/19 08:35; Admin Dose 1 APPLIC; Start 03/18/19 at 13:30 Prednisone (Prednisone) 40 mg DAILY PO Last administered on 03/26/19 08:36; Admin Dose 40 MG; Start 03/22/19 at 09:00 Clobetasol Propionate (Temovate 0.05% Oint) 1 applic BID TOP Last administered on 03/26/19 08:52; Admin Dose 1 APPLIC; Start 03/23/19 at 21:00 Tramadol HCl (Ultram) 100 mg Q6H PRN PO MODERATE PAIN LEVEL 4-6 Last adminis tered on 03/26/19 13:27; Admin Dose 100 MG; Start 03/24/19 at 12:30 Sodium Hypochlorite (Dakins Diluted ()) 1 applic DAILY TP Last administered on 03/26/19 08:38; Admin Dose 1 APPLIC; Start 03/25/19 at 16:30 Methotrexate (Methotrexate) 27.5 mg ONCE PO Last administered on 03/26/19 13:30; Admin Dose 27.5 MG; Start 03/26/19 at 13:30; Stop 03/26/19 at 23:30 Calamine (Calamine Lotion) 1 applic BID PRN TOP ITCHING; Start 03/26/19 at 16:00 Furosemide (Lasix) 20 mg BID IV ; Start 03/26/19 at 09:00 BROOKE ADAMSON DPM Mar 26, 2019 19:57
[2019-03-26] MEDS: ATORVASTATIN 40 MG TAB PO SCH (20:52)
[2019-03-27] MEDS: DIPHENHYDRAMINE 25 MG CAP PO PRN ×3 (00:56→22:10)
[2019-03-27 02:00] VITALS: BP 137/71; PULSE 91; RESP 20
[2019-03-27] MEDS: traMADol 50 MG TAB PO PRN ×2 (03:00→17:36)
[2019-03-27] MEDS ORDERED: KETOROLAC 30 MG INJ IV ONE (03:54)
[2019-03-27 07:16] VITALS: BP 155/83; PULSE 101; RESP 20
[2019-03-27] MEDS: TRIAMCINOLONE ACET 0.025% 15 GM OINT TOP SCH ×3 (09:00→21:00)
[2019-03-27] MEDS: DAKINS 0.0125%(1/40) 473 ML SOLUTION TP SCH (09:00)
[2019-03-27] MEDS: predniSONE 20 MG TAB PO SCH (09:21)
[2019-03-27] MEDS: LOSARTAN 50 MG TAB PO SCH (09:22)
[2019-03-27] MEDS: FOLIC ACID 1 MG TAB PO SCH (09:22)
[2019-03-27] MEDS: FUROSEMIDE 20 MG INJ IV SCH ×2 (09:22→22:11)
[2019-03-27] MEDS: CLOBETASOL 0.05% 15 GM OINT TOP SCH ×2 (09:22→22:03)
[2019-03-27] MEDS: MOMETASONE 0.24 GM INHALER INH SCH ×2 (09:23→22:03)
[2019-03-27] MEDS: NYSTATIN 30 GM POWDER BTL TOP SCH ×2 (09:23→22:03)
[2019-03-27] MEDS: ENOXAPARIN 40 MG/0.4 ML SYG SC SCH (09:34)
[2019-03-27 12:56] VITALS: BP 140/79; PULSE 101; RESP 20
[2019-03-27 15:55] VITALS: BP 142/85; PULSE 112; RESP 20
--- NOTE | 2019-03-27 16:46 | PN ---
Date/Time of Note Date/Time of Note DATE: 03/27/19 TIME: 16:42 Assessment/Plan VTE Prophylaxis Risk score (from Nsg)>0 risk: 5 Pharmacological prophylaxis: LMWH Lines/Catheters IV Catheter Type (from Nrsg): Saline Lock Urinary Cath still in place: No Assessment/Plan Hospital Course OHS with chronic hypercapnic respiratory failure - Continue nocturnal BIPAP for OHS Acute diastolic CHF: - Requires continued diuresis, Lasix was being held secondary to contraction alkalosis but have resumed today Psoriasis: -Continue systemic prednisone course and s/p methotrexate dose. 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 Result Diagram: 03/23/19 0640 Subjective 24 Hr Interval Summary Constitutional: no complaints Exam/Review of Systems Exam Vitals Vital Signs Date Temp Pulse Resp B/P (MAP) Pulse Ox O2 O2 Flow FiO2 Time Delivery Rate 03/27/19 98.3 112 20 142/85 92 15:55 (104) 03/27/19 Nasal 3.0 08:40 Cannula 03/26/19 40 23:45 Intake and Output 03/26/19 03/26/19 03/27/19 1515:00 23:00 07:00 IntakeIntake Total 1200 ml 2000 ml OutputOutput Total 2800 ml 3200 ml BalanceBalance -1600 ml -1200 ml Constitutional: alert, oriented Respiratory: clear to auscultation Cardiovascular: regular rate and rhythm Gastrointestinal: soft; No distended Musculoskeletal: No nl extremities to inspection Medications Medication Current Medications IV Flush (NS 3 ml) 3 ml PER PROTOCOL IV ; Start 03/12/19 at 22:30 Ondansetron HCl (Zofran Inj) 4 mg Q6H PRN IV NAUSEA/VOMITING; Start 03/12/19 at 22:30 Acetaminophen (Tylenol Tab) 650 mg Q6H PRN PO .PAIN 1-3 OR TEMP; Start 03/12/19 at 22:30 Enoxaparin Sodium (Lovenox) 40 mg DAILY SC Last administered on 4/26/19at 09:34; Admin Dose 40 MG; Start 03/13/19 at 09:00 Albuterol/ Ipratropium (Duoneb) 3 ml Q2H RESP THERAPY PRN HHN SHORTNESS OF BREATH Last administered on 03/26/19 21:07; Admin Dose 3 ML; Start 03/12/19 at 22:30 Mometasone Furoate (Asmanex) 1 puff BID INH Last administered on 03/27/19 09:23; Admin Dose 1 PUFF; Start 03/13/19 at 09:00 Atorvastatin Calcium (Lipitor) 40 mg QHS PO Last administered on 03/26/19 20:52; Admin Dose 40 MG; Start 03/13/19 at 21:00 Folic Acid (Folic Acid) 1 mg DAILY PO Last administered on 03/27/19 09:22; Admin Dose 1 MG; Start 03/13/19 at 09:00 Losartan Potassium (Cozaar) 50 mg DAILY PO Last administered on 03/27/19 09:22; Admin Dose 50 MG; Start 03/13/19 at 09:00 Miscellaneous Information Patients own medicat... BID@10,16 XX Last administered on 03/18/19 16:27; Admin Dose 1 EA; Start 03/14/19 at 10:00 Diphenhydramine HCl (Benadryl) 25 mg Q6H PRN PO ITCHING Last administered on 03/27/19 06:42; Admin Dose 25 MG; Start 03/15/19 at 03:30 Non-Formulary Medication 1 ea TID TOP Last administered on 03/26/19 20:54; Admin Dose 1 EA; Start 03/15/19 at 21:00 Guaifenesin (Robitussin Liquid Cup) 100 mg Q4H PRN PO COUGH Last administered on 03/18/19 05:45; Admin Dose 100 MG; Start 03/17/19 at 19:30 Nystatin (Nystatin Powder) 1 applic BID TOP Last administered on 03/27/19 09:23; Admin Dose 1 APPLIC; Start 03/18/19 at 13:30 Prednisone (Prednisone) 40 mg DAILY PO Last administered on 03/27/19 09:21; Admin Dose 40 MG; Start 03/22/19 at 09:00 Clobetasol Propionate (Temovate 0.05% Oint) 1 applic BID TOP Last administered on 03/27/19 09:22; Admin Dose 1 APPLIC; Start 03/23/19 at 21:00 Tramadol HCl (Ultram) 100 mg Q6H PRN PO MODERATE PAIN LEVEL 4-6 Last administered on 03/27/19 03:00; Admin Dose 100 MG; Start 03/24/19 at 12:30 Sodium Hypochlorite (Dakins Diluted ()) 1 applic DAILY TP Last administered on 03/26/19at 08:38; Admin Dose 1 APPLIC; Start 03/25/19 at 16:30 Calamine (Calamine Lotion) 1 applic BID PRN TOP ITCHING; Start 03/26/19 at 16:00 Furosemide (Lasix) 20 mg BID IV Last administered on 03/27/19 09:22; Admin Dose 20 MG; Start 03/26/19 at 09:00 TAMRA JOHNSON Mar 27, 2019 16:46
[2019-03-27] MEDS ORDERED: VANCOMYCIN IV PER PHARMACY XX SCH (17:00)
--- NOTE | 2019-03-27 18:24 | CONS ---
DATE OF ADMISSION: 03/12/2019 DATE OF CONSULTATION: 03/27/2019 TYPE OF CONSULTATION: Infectious Disease consultation. REASON FOR CONSULTATION: Antibiotic management. HISTORY OF PRESENT ILLNESS: Joseph Mathews is a 48-year-old male with a history of morbid obesity wi th recurrent respiratory failure secondary to pickwickian syndrome and hypoventilation secondary to o besity. He comes in with shortness of breath, asthma and COPD. He has had 2 recent hospitalizations for similar symptoms in [place]. He does not have a BiPAP or CPAP machine at home and cannot care for himself; therefore, he was admitted. He has a history of sleep apnea, hypertension as noted. O n admission, his white count was 14.3, H and H of 10.9 and 37.3, platelet count 383,000. BUN and cre atinine 15/0.69. HOSPITAL COURSE: The patient was seen by pulmonary, Dr. Whitman, admitted with shortness of breath, mi ld leukocytosis, history of prior respiratory failure, status post decannulation of tracheostomy; und erlying obesity hypoventilation syndrome. The patient was placed on antibiotics including Levaquin. He was followed closely by pulmonary on the , white count was 15.7 on the . The patient was noted to have a history of psoriasis, generalized erythematous rash and complains of significant itc rito. Oral prednisone was discontinued and he was started on IV Solu-Medrol as well as morphine. e patient was seen by . He has venous ulcerations left lower extremity, venous insufficienc y, cellulitis, psoriasis, morbid obesity, JANA, lymphedema and wound cultures showed Staph species. C ontinue daily dressing changes, would benefit from lymphedema pump. On the , wound cultures show ed Staphylococcus aureus, staph-coag negative, diphtheroids, gram-negative rods. Continue daily dres sing changes. PHYSICAL EXAMINATION: GENERAL: He is massively obese male, who is awake, responsive, in no acute distress. SKIN: Without generalized rash. HEENT: Within normal limits. NECK: Supple. LYMPH NODES: None palpable. CHEST: Decreased breath sounds at the bases. HEART: Without murmur or gallop. ABDOMEN: Soft, morbidly obese without organosplenomegaly or masses. He has a pannus. EXTREMITIES: 4+ pitting edema with cobblestoning appreciated in the lower extremities. He has weepi ng on bilateral lower extremities, multiple serous blister formations. He has erythema on his lower extremities. Skin plaques appreciated in the lower extremities. RECTAL AND GENITAL: Deferred. NEUROLOGIC: No focal neurological abnormality. IMPRESSION AND PLAN: Continue patient on current medication. His wounds are growing coagulase negat purvi Staphylococcus, methicillin-resistant Staphylococcus, Serratia marcescens, corynebacterium and En terococcus. The feeling is that the patient at this point is colonized rather than infected and I wo uld not start him on any antibiotics at this point. I will dictate my findings to the hospitalist an d to the pulmonary team. Dictated By: GANESH AVILES MD, JD/BENITO Conf#: [id number] DID#: [id number]
[2019-03-27 20:00] VITALS: BP 129/83; PULSE 110; RESP 19
[2019-03-27] MEDS: morphine 2 MG INJ IV PRN (20:33)
[2019-03-27] MEDS: VANCOMYCIN HCL 2 GM in SOD CHLORIDE 0.9% 500 ML IVPB SCH ×2 (20:34→23:39)
[2019-03-27] MEDS: ATORVASTATIN 40 MG TAB PO SCH (22:11)
[2019-03-28] VITALS: BP 175/77; PULSE 98; RESP 20
[2019-03-28] MEDS: morphine 2 MG INJ IV PRN (01:09)
[2019-03-28 04:00] VITALS: BP 161/119; PULSE 91; RESP 19
[2019-03-28] MEDS ORDERED: morphine 2 MG INJ IV STA ×2 (04:47→18:03)
[2019-03-28] MEDS: traMADol 50 MG TAB PO PRN (05:29)
[2019-03-28 08:02] VITALS: BP 134/82; PULSE 118; RESP 18
[2019-03-28] MEDS ORDERED: VANCOMYCIN HCL 1.75 GM in SOD CHLORIDE 0.9% 500 ML IVPB SCH (09:00)
[2019-03-28] MEDS: MOMETASONE 0.24 GM INHALER INH SCH ×2 (09:33→20:42)
[2019-03-28] MEDS: CLOBETASOL 0.05% 15 GM OINT TOP SCH ×2 (09:34→20:43)
[2019-03-28] MEDS: NYSTATIN 30 GM POWDER BTL TOP SCH ×2 (09:34→20:43)
[2019-03-28] MEDS: FOLIC ACID 1 MG TAB PO SCH (09:35)
[2019-03-28] MEDS: FUROSEMIDE 20 MG INJ IV SCH ×2 (09:35→20:43)
[2019-03-28] MEDS: LOSARTAN 50 MG TAB PO SCH (09:35)
[2019-03-28] MEDS: predniSONE 20 MG TAB PO SCH (09:36)
[2019-03-28] MEDS: DAKINS 0.0125%(1/40) 473 ML SOLUTION TP SCH (09:37)
[2019-03-28] MEDS: TRIAMCINOLONE ACET 0.025% 15 GM OINT TOP SCH ×3 (09:37→20:44)
[2019-03-28] MEDS: ENOXAPARIN 40 MG/0.4 ML SYG SC SCH (09:54)
[2019-03-28] MEDS: DIPHENHYDRAMINE 25 MG CAP PO PRN (10:28)
--- NOTE | 2019-03-28 12:03 | CONS ---
Assessment/Plan Assessment/Plan Hospital Course (Demo Recall) ID PROGRESS NOTE CURRENT ABX: DAY # => Vanco IV s/p Levaquin 03/13 - 03/22 = 10# 24H INTERVAL SUMMARY * 48 yo w/acute phlebesity == BLEXT super morbid obese venous stasis lymphedema with chronic BLEXT cellulitis venous stasis ulcers bacterial colonization multiple pathogens. Patient has been paging Dr. Raines team members reporting he has an emergency and needs to see us which is not factual. He endorses he was seen last night by Dr. Raines -- he does not recall Dr. Raines addressing his "Feet Pain" and "How are you going to cure my legs -- they hurt" -- I've been waiting all day for you -- the nurses told me you were coming." I brought in copies of his x-rays, and articles about the nature of these problem -- that it is likely a chronic condition that will be with him as long as he remains super morbid obese. I showed him photos of BLEXT elephantitis/lymphaedema, thick alligator skin, chronic venous wounds, explained that some people require skin grafts, venous ablation procedures. He tells me that his condition is the equivalent of a life and emergency because his legs are in pain..."I need ID team to fix my legs and my pain." I explained to him that ID team can assist him with appropriate antibiotics; which he is on (Vanco IV) -- yet we cannot get involved in his pain management plan of care. Nor can we give him recommendations on venous stasis procedures, nor debridement -- that he would need to discuss those issues with appropriate alternative providers. Patient fell asleep on me and I left the room -- he wakes up after I left and was sitting at nurses station and yells out of his room.... "Where did that lady go -- I didn't excuse her -- tell her to respect me and get back in here." I got up from my seat and went back in there -- he was upset that I had left the room when he fell asleep (has pain meds onboard + sleep apnea) -- He adopts aggressive raised voice and tells me "I didn't fall asleep I have sleep apnea -- don't tell me I fell asleep" -- I apologized and told him that I tried to talk to him he wasn't responding that I even spoke in a loud voice to keep him engaged and awake -- yet he was alseep -- pt agains becomes angry that I said he was asleep -- yelled at me "I am not sleeping -- I have sleep apnea -- there is a difference!" -- pt becomes agitated -- he raises his voice and will not let me speak -- tells me again th at he has been waiting all day yesterday and all day today for ID to "fix his legs" "Fix his pain" -- I explained again that his expectations that ID "FIX his current condition is unrealistic" -- that bottom line he should be considered for bariatric surgery and he wants me to write him a letter approving this so he can take this to his insurance company -- NOW. * I explained to him that it is too premature for such a letter -- he needs to follow up future outpatient. He persistently tells me he wants me to write down in his chart that ID recommended bariatric surgery. I assured him I would write down that ID does recommend bariatric surgery ON THE CONDITION THAT HE IS A SAFE CANDIDATE FOR BARIATRIC SURGERY -- I cannot assess his candidacy from pulmonary/cardiac stand as he may be considered too high risk -- that is not up to ID to approve. is quick to argue and disagree and wants to dominate and control the conversation. Despite me telling him that I would write this down -- he became agitated at the thought that he may be too obese to qualify -- He continued to ruminate that ID needs to provider him documented clearance that ID recommends this to "save his life". He continues to yell and argue with me -- extremely provocative and aggressive behavior. * I tried to explain to him that I do feel for him -- that I have experience with BARIATRIC POPULATION from working in the ICU in [facility] -- that it is psychological and emotionally challenging to deal with the issues he is dealing with due to his SUPER MORBID OBESITY -- that this population has unique psychosocial challenges specifically with respect to a demonstrative behavior pattern of demanding "instant gratification" -- I explained to him that I cannot offer him the "Instant gratification" that he is seeking. With this he feels that I am "Judging him because I am obese" -- I told him Mr. Mathews -- I am giving you "my clinical assessment -- the problem with super morbid obese population and underlying clinical condition that leads to your current state crosses all aspects, systems of health -- and psychological need for instant gratification and need to control, dominate, throw temper tantrums until one gets there way is well know part of the problem --and is one of the root causes of why they cannot tolerate even one hunger shania -- that this population demands instant gratification and I cannot give you that -- i recommended he look inward as to why he is having hostile/argumentative encounters with variety of nursing staff. * With this patient's verbal arguments and interruptions escalate -- I explained to him that I recommend he calm down and also recommended that he look inward to his own behavior -- he has been provoking the nurses on the floor, making hostile demands on staff, argues with them when they come in the room -- as he is doing with me -- that he needs to look inward as to why he must dominate, control, blame, heckle, argue with those who are trying to help. With this he tells me that he has not been having problems with the nurses and other staff ( which is not an accurate perception of his own behavior). He then goes on a loud ranting tirade on how he deserves respect and I have not show him respect. With that statement I told him I disagree -- explained that I took the time to print out article and review them with you... He interrupts me says..."Jamie'ts your job -- I expect you to do that" -- My voice became firm I told him I'm sorry he feels that way -- * Our conversation deteriorated over many ingram issues, semantics, he would not let me speak, continued to interrupt me --- I explained to him that I have offered him handouts on the severity of the PHELBESITY problem -- I've done what I can, came as soon as possible, and that I came to him in a spirit of good will to try to help him, you prefer to perceive my efforts as disrespectful while I do not buy into your assessment. AND --I am saying solomon miranda and wish you well -- we both raised our voices -- he proceeded to tell me that I was an "F white bitch with blue eyes....you are going to burn in hell you white bitch -- I know your type -- you hate black women and you hate obese people -- you have no respect for me because I am obese - you are a child of Shanika and I pray that you burn in hell." With this I put up my hand and said --- "I've done -- I did the best I can to help you, I reject your curse upon me -- I wish you peace. I do not have racist or prejudice hatred in my heart for obese or black women -- that I have devoted more time to him today that all my critical patients in the ICU that I left to come to your bedside JUSTIN since you summoned me for a life and issue that simply is not life and ; rather chronic". I informed him that I am not at his bec and call -- he tells me "Yes you are". As I left the room he was yelling that I was a "F white bitch and that he was going to get me fired". I told him that I will be happy to sign off his case if that is what he wants, and reminded him that that I spoke no such words of "hate" towards him as he has chosen to call me. DIAGNOSTIC IMAGING * 03/27/19 CT A-P reviewed * 03/24/19 BLEXT ARTERIAL DUPLEX:IMPRESSION:Nondiagnostic study without visualization of the bilateral lower extremity arteries. Recommend CT angiogram aorta with bilateral lower extremity runoff to evaluate. MICRO/OTHER * 03/16/19 SPUTUM: RESPIRATORY CULTURE Final Organism 1 NORMAL RESPIRATORY LARRY QUANTITY 3+ * 03/24/19 FOOT CX: WOUND CULTURE Final Organism 1 COAGULASE NEGATIVE STAPH QUANTITY 3+ Organism 2 METHICILLIN RESISTANT S.AUREUS QUANTITY 1+ . MULTI DRUG RESISTANT ORGANISM Organism 3 SERRATIA MARCESCENS QUANTITY ISOLATED FROM BROTH ONLY Organism 4 CORYNEBACTERIUM SPECIES QUANTITY 3+ Organism 5 ENTEROCOCCUS SPECIES QUANTITY ISOLATED FROM BROTH ONLY COAG NEG MRSA S MARCESCE M.I.C. RX M.I.C. RX M.I.C. RX --------- --- --------- --- --------- --- AMIKACIN <=2 S AMPICILLIN CEFAZOLIN R R CEFEPIME <=1 S CEFOTAXIME R CIPROFLOXACIN <=0.5 S >=8 R <=0.25 S CLINDAMYCIN <=0.25 S R DOXYCYCLINE S S ERYTHROMYCIN <=0.25 S >=8 R GENTAMICIN >=16 R LEVOFLOXACIN 0.25 S >=8 R <=0.12 S OXACILLIN <=0.25 R >=4 R PENICILLIN-G R >=0.5 R RIFAMPIN <=0.5 S <=0.5 S VANCOMYCIN 1 S <=0.5 S TOBRAMYCIN >=16 R TRIMETHOPRIM/SULFAMETHOXAZOLE <=10 S <=10 S 40 S PIPERACILLIN/TAZOBACTAM S ENT SPS M.I.C. RX --------- --- AMIKACIN AMPICILLIN <=2 S CEFAZOLIN CEFEPIME CEFOTAXIME CIPROFLOXACIN CLINDAMYCIN DOXYCYCLINE ERYTHROMYCIN GENTAMICIN LEVOFLOXACIN OXACILLIN PENICILLIN-G 8 S RIFAMPIN VANCOMYCIN 1 S TOBRAMYCIN TRIMETHOPRIM/SULFAMETHOXAZOLE PIPERACILLIN/TAZOBACTAM CORYN SPS Zone Size RX --------- --- * AMPICILLIN S * CEFAZOLIN S * CEFOTAXIME S * CEFUROXIME S * CIPROFLOXACIN R * CLINDAMYCIN R * ERYTHROMYCIN R * PENICILLIN S * VANCOMYCIN S PHYSICAL EXAMINATION: GENERAL: VSS, agitated intermittent drowsy, super morbid obese HEENT: AT, NC, anicteric, NECK: Enlarged circumference CHEST: Equal chest rise bilaterally - without dyspnea on observation HEART: Deferred due to large body habitus sitting in chair I can't even reach his chest ABDOMEN: Soft, passing gas EXTREMITIES: SEVERE BLEXT LYMPHAEDEMA LEGS WRAPPED IN CHANDNI WRAPS SKIN: Psoriatic rash diffused all over his body, no diaphoresis Psych: Irritable/angry affect, inpatient, delusional perceptions ID ASSESSMENT 48 yo M admit with: SIRS with possible sepsis: Presented with leukocytosis and tachycardia: Chest x- ray with possible atypical infectious process * Will treat with antibiotic. Hypoxic respiratory insufficiency /recurrent respiratory failure secondary to pickwickian syndrome and hypoventilation secondary to obesity. * Chronic hypercapnic respiratory failure * Hx of respiratory failure requiring tracheostomy here in 2017 => now decannulated Acute COPD asthma exacerbation - stable Super Morbid obesity == BMI of 64 (?91?): Patient has a motorized scooter HTN Pulmonary edema Acute diastolic CHF: * - Required continued diuresis, Lasix was being held secondary to contraction alkalosis Venous ulceration to left lower extremity/foot w/Cellulitis Venous insufficiency w/acute on chronic Lymphedema Psoriasis: * Continue systemic prednisone course and s/p methotrexate dose * Topical steroids started, follow up as outpatient PSYCH DX NOS w/anger/irritability/agitative features -- delusional perceptions Acute/Chronic pain -- PAIN MED SEEKING (-)MRSA Nares ABX ALLERGIES: KNDA INVASIVES: PIV CURRENT ABX: DAY # => Vanco IV s/p Levaquin 03/13 - 03/22 = 10# ID RECOMMENDATIONS/PLAN: 1. When cleared for DC home or SNF == may DC on PO Doxycycline 100mg BID + Amoxicillin 500mg TID x 14 days 2. Patient already received 10 days of Levaquin for GNR coverage -- continue topical wound care. 3. WILL SIGN OFF THE CASE == Patient is requesting to file a formal complaint and get me "fired" -- I gave my report to cyber security specialist as staff called a code simpson on him for his angry yelling at me in his room. I also gave my report to the nurse, and nurse apartment community assistant manager who were partial witnesses to our encounter. Finally, I gave my report to the [facility] the nursing supervisor dental laboratory. * Patient actually wants me to address his pain -- suspect pain med seeking. I gave handouts to him -- one of the handouts has photos that do not copy and paste into this note The others I printed and gave to him. Phlebology. 2017 April;32(4):227-233. doi: 10.1177/[id number]. Epub 2015April 13. Obesity and lower limb venous disease - The epidemic of phlebesity. Vikas HO1, Azeb M1, Tuyet R2, Shalom Rios, Mati AW1. Abstract Introduction Lower limb venous disease affects up to one half, and obesity up to one quarter, of the adult population. Many people are therefore affected by, and present to health services for the treatment of both conditions. This article reviews the available evidence of pathophysiological and clinical relationship between obesity and varicose veins, chronic venous insufficiency and ulceration and deep vein thrombosis. Methods A literature search of PubMed and Terell libraries was performed in accordance with CRISTINA statement from 1946 to 2014, with further article identification from following cited references for articles examining the relationship between obesity and venous disease. Search terms included obesity, overweight, thrombosis, varicose veins, CEAP, chronic venous insufficiency, treatment, endovenous, endothermal, sclerotherapy, bariatric surgery and deep vein thrombosis. Results The proportion of the population suffering from lower limb venous disease and obesity is increasing. Obesity is an important risk factor for all types of lower limb venous disease, and obese patients with lower limb venous disease are more likely to be symptomatic as a result of their lower limb venous disease. The clinical diagnosis, investigation, imaging and treatment of lower limb venous disease in obese people present a number of challenges. The evidence base underpinning medical, s urgical and endovenous management of lower limb venous disease in obese people is limited and such treatment may be associated with worse outcomes and increased risks when compared to patients with a normal body mass index. Conclusion Lower limb venous disease and obesity are both increasingly common. As such, phlebologists will be treating ever greater numbers of obese patients with lower limb venous disease, and clinicians in many other specialties are going to be treating a wide range of obesity-related health problems in people with or at risk of lower limb venous disease. Unfortunately, obese people have been specifically excluded from many, if not most, of the pivotal studies. As such, many basic questions remain unanswered and there is an urgent need for research in this challenging and increasingly prevalent patient group. KEYWORDS: DVT; Obesity; treatment; varicose veins; venous disease; venous thrombosis PMID: [id number] DOI: 10.1177/[id number] [Indexed for MEDLINE] ```````````````````````````````````````````````````````````````````````` https://link.green.com/chapter/10.1007/[email or web address] Principles of Metabolic Surgery pp 387-402 | Cite as Chronic Venous Insufficiency and Venous Ulcers in the Obese * Authors * Authors and affiliations * Margarita Razoyser Abstract Chronic venous insufficiency (CVI) and venous ulceration are major health issues in developed countries. CVI is estimated to be present in 0.10.2% of the population at risk in Western countries [1] and is thought to be the underlying cause of 7090% of all leg ulcers [2]. Ulcer healing rates can be poor, with only 50% healing at 4 months [3], 20% remaining open at 2 years, and 8% remaining open at 5 years [4]. Additionally, the annual recurrence rate varies from 6% to 15% [5, 6]. From an economic point of view, leg ulcerations are responsible for the loss of 2 million working days and treatment costs of approximately $3 billion per year in the [place] [7]. The association between obesity and varicosis has been confirmed, especially in female patients [8], but the role of obesity in more severe stages of CVI is not well- established. For example, increased intraabdominal pressure has been implicated as a factor in CVI. Additionally, several factors contributing to CVI are also associated with morbid obesity. Both conditions can be regarded as chronic diseases, both are diseases of civilization, and both can cause large treatment costs over a prolonged period of time. Therefore, patients suffering from both conditions always need combined and multimodal therapy to achieve positive therapeutic results. Consultation Date/Type/Reason Admit Date/Time Mar 12, 2019 at 18:53 Initial Consult Date 03/13/19 Date/Time of Note DATE: 03/28/19 TIME: 11:36 Exam/Review of Systems Exam Vitals Vital Signs Date Temp Pulse Resp B/P (MAP) Pulse Ox O2 O2 Flow FiO2 Time Delivery Rate 03/28/19 Nasal 3.0 08:02 Cannula 03/28/19 98.1 118 18 134/82 97 08:02 (99) 03/26/19 40 23:45 Intake and Output 03/27/19 03/27/19 03/28/19 1414:59 22:59 06:59 IntakeIntake Total 800 ml 1600 ml OutputOutput Total 1050 ml 2000 ml BalanceBalance -250 ml -400 ml Medications Medication Current Medications IV Flush (NS 3 ml) 3 ml PER PROTOCOL IV ; Start 03/12/19 at 22:30 Ondansetron HCl (Zofran Inj) 4 mg Q6H PRN IV NAUSEA/VOMITING; Start 03/12/19 at 22:30 Acetaminophen (Tylenol Tab) 650 mg Q6H PRN PO .PAIN 1-3 OR TEMP; Start 03/12/19 at 22:30 Enoxaparin Sodium (Lovenox) 40 mg DAILY SC Last administered on 03/28/19 09:54; Admin Dose 40 MG; Start 03/13/19 at 09:00 Albuterol/ Ipratropium (Duoneb) 3 ml Q2H RESP THERAPY PRN HHN SHORTNESS OF BREATH Last administered on 03/26/19 21:07; Admin Dose 3 ML; Start 03/12/19 at 22:30 Mometasone Furoate (Asmanex) 1 puff BID INH Last administered on 03/28/19 09:33; Admin Dose 1 PUFF; Start 03/13/19 at 09:00 Atorvastatin Calcium (Lipitor) 40 mg QHS PO Last administered on 03/27/19 22:11; Admin Dose 40 MG; Start 03/13/19 at 21:00 Folic Acid (Folic Acid) 1 mg DAILY PO Last administered on 03/28/19 09:35; Admin Dose 1 MG; Start 03/13/19 at 09:00 Losartan Potassium (Cozaar) 50 mg DAILY PO Last administered on 03/28/19 09:35; Admin Dose 50 MG; Start 03/13/19 at 09:00 Miscellaneous Information Patients own medicat... BID@10,16 XX Last administered on 03/18/19 16:27; Admin Dose 1 EA; Start 03/14/19 at 10:00 Diphenhydramine HCl (Benadryl) 25 mg Q6H PRN PO ITCHING Last administered on 03/28/19 10:28; Admin Dose 25 MG; Start 03/15/19 at 03:30 Non-Formulary Medication 1 ea TID TOP Last administered on 03/28/19 09:37; Admin Dose 1 EA; Start 03/15/19 at 21:00 Guaifenesin (Robitussin Liquid Cup) 100 mg Q4H PRN PO COUGH Last administered on 03/18/19 05:45; Admin Dose 100 MG; Start 03/17/19 at 19:30 Nystatin (Nystatin Powder) 1 applic BID TOP Last administered on 03/28/19 09:34; Admin Dose 1 APPLIC; Start 03/18/19 at 13:30 Prednisone (Prednisone) 40 mg DAILY PO Last administered on 03/28/19 09:36; Admin Dose 40 MG; Start 03/22/19 at 09:00 Clobetasol Propionate (Temovate 0.05% Oint) 1 applic BID TOP Last administered on 03/28/19 09:34; Admin Dose 1 APPLIC; Start 03/23/19 at 21:00 Tramadol HCl (Ultram) 100 mg Q6H PRN PO MODERATE PAIN LEVEL 4-6 Last administered on 03/28/19 05:29; Admin Dose 100 MG; Start 03/24/19 at 12:30 Sodium Hypochlorite (Dakins Diluted ()) 1 applic DAILY TP Last administered on 03/28/19 09:37; Admin Dose 1 APPLIC; Start 03/25/19 at 16:30 Calamine (Calamine Lotion) 1 applic BID PRN TOP ITCHING; Start 03/26/19 at 16:00 Furosemide (Lasix) 20 mg BID IV Last administered on 03/28/19 09:35; Admin Dose 20 MG; Start 03/26/19 at 09:00 Vancomycin HCl (Vanco Iv Per Pharmacy) VANCOMYCIN PER PHARMACY PER PROTOCOL XX ; Start 03/27/19 at 17:00 Morphine Sulfate (morphine) 2 mg DAILY PRN IV SEVERE PAIN LEVEL 7-10 Last administered on 03/28/19 01:09; Admin Dose 2 MG; Start 03/27/19 at 17:00 Vancomycin HCl 1.75 gm/Sodium Chloride 500 ml @ 125 mls/hr Q12H IVPB Last administered on 03/28/19 09:34; Admin Dose 125 MLS/HR; Start 03/28/19 at 09:00 LUCA GE NP Mar 28, 2019 11:49
--- NOTE | 2019-03-28 12:38 | PN ---
Date/Time of Note Date/Time of Note DATE: 03/28/19 TIME: 12:36 Assessment/Plan VTE Prophylaxis Risk score (from Nsg)>0 risk: 9 Pharmacological prophylaxis: LMWH Lines/Catheters IV Catheter Type (from Nrsg): Saline Lock Urinary Cath still in place: No Assessment/Plan Hospital Course OHS with chronic hypercapnic respiratory failure - Continue nocturnal BIPAP for OHS Acute diastolic CHF: - Requires continued diuresis, Lasix was being held secondary to contraction alkalosis but have resumed Psoriasis: -DC oral prednisone course and s/p methotrexate dose -Continue topical steroids, outpatient follow-up Morbid obesity: - Counseled - Weight loss surgery planned as outpatient Venous insufficiency ulcer of the left foot -Podiatry consultation appreciated, status post debridement -Wound cultures positive for multiple organisms including MRSA, continue vancomycin -ID consultation obtained -Pain control, have restarted Toradol, continue tramadol Prophylaxis: Lovenox 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 Subjective 24 Hr Interval Summary Musculoskeletal: bone/joint pain Exam/Review of Systems Exam Vitals Vital Signs Date Temp Pulse Resp B/P (MAP) Pulse Ox O2 O2 Flow FiO2 Time Delivery Rate 03/28/19 Nasal 3.0 08:02 Cannula 03/28/19 98.1 118 18 134/82 97 08:02 (99) 03/26/19 40 23:45 Intake and Output 03/27/19 03/27/19 03/28/19 1515:00 23:00 07:00 IntakeIntake Total 800 ml 1600 ml OutputOutput Total 1050 ml 2000 ml BalanceBalance -250 ml -400 ml Constitutional: alert, oriented Respiratory: clear to auscultation Cardiovascular: regular rate and rhythm Gastrointestinal: soft; No distended Musculoskeletal: No nl extremities to inspection Medications Medication Current Medications IV Flush (NS 3 ml) 3 ml PER PROTOCOL IV ; Start 03/12/19 at 22:30 Ondansetron HCl (Zofran Inj) 4 mg Q6H PRN IV NAUSEA/VOMITING; Start 03/12/19 at 22:30 Acetaminophen (Tylenol Tab) 650 mg Q6H PRN PO .PAIN 1-3 OR TEMP; Start 03/12/19 at 22:30 Enoxaparin Sodium (Lovenox) 40 mg DAILY SC Last administered on 03/28/19at 09:54; Admin Dose 40 MG; Start 03/13/19 at 09:00 Albuterol/ Ipratropium (Duoneb) 3 ml Q2H RESP THERAPY PRN HHN SHORTNESS OF BREATH Last administered on 03/26/19 21:07; Admin Dose 3 ML; Start 03/12/19 at 22:30 Mometasone Furoate (Asmanex) 1 puff BID INH Last administered on 03/28/19 09:33; Admin Dose 1 PUFF; Start 03/13/19 at 09:00 Atorvastatin Calcium (Lipitor) 40 mg QHS PO Last administered on 03/27/19 22:11; Admin Dose 40 MG; Start 03/13/19 at 21:00 Folic Acid (Folic Acid) 1 mg DAILY PO Last administered on 03/28/19 09:35; Admin Dose 1 MG; Start 03/13/19 at 09:00 Losartan Potassium (Cozaar) 50 mg DAILY PO Last administered on 03/28/19 09:35; Admin Dose 50 MG; Start 03/13/19 at 09:00 Miscellaneous Information Patients own medicat... BID@10,16 XX Last administered on 03/18/19 16:27; Admin Dose 1 EA; Start 03/14/19 at 10:00 Diphenhydramine HCl (Benadryl) 25 mg Q6H PRN PO ITCHING Last administered on 03/28/19 10:28; Admin Dose 25 MG; Start 03/15/19 at 03:30 Non-Formulary Medication 1 ea TID TOP Last administered on 03/28/19 09:37; Admin Dose 1 EA; Start 03/15/19 at 21:00 Guaifenesin (Robitussin Liquid Cup) 100 mg Q4H PRN PO COUGH Last administered on 03/18/19 05:45; Admin Dose 100 MG; Start 03/17/19 at 19:30 Nystatin (Nystatin Powder) 1 applic BID TOP Last administered on 03/28/19 09:34; Admin Dose 1 APPLIC; Start 03/18/19 at 13:30 Prednisone (Prednisone) 40 mg DAILY PO Last administered on 03/28/19 09:36; Admin Dose 40 MG; Start 03/22/19 at 09:00 Clobetasol Propionate (Temovate 0.05% Oint) 1 applic BID TOP Last administered on 03/28/19 09:34; Admin Dose 1 APPLIC; Start 03/23/19 at 21:00 Tramadol HCl (Ultram) 100 mg Q6H PRN PO MODERATE PAIN LEVEL 4-6 Last administered on 03/28/19 05:29; Admin Dose 100 MG; Start 03/24/19 at 12:30 Sodium Hypochlorite (Dakins Diluted ()) 1 applic DAILY TP Last administered on 03/28/19 09:37; Admin Dose 1 APPLIC; Start 03/25/19 at 16:30 Calamine (Calamine Lotion) 1 applic BID PRN TOP ITCHING; Start 03/26/19 at 16:00 Furosemide (Lasix) 20 mg BID IV Last administered on 03/28/19 09:35; Admin Dose 20 MG; Start 03/26/19 at 09:00 Vancomycin HCl (Vanco Iv Per Pharmacy) VANCOMYCIN PER PHARMACY PER PROTOCOL XX ; Start 03/27/19 at 17:00 Morphine Sulfate (morphine) 2 mg DAILY PRN IV SEVERE PAIN LEVEL 7-10 Last administered on 03/28/19 01:09; Admin Dose 2 MG; Start 03/27/19 at 17:00 Vancomycin HCl 1.75 gm/Sodium Chloride 500 ml @ 125 mls/hr Q12H IVPB Last administered on 03/28/19 09:34; Admin Dose 125 MLS/HR; Start 03/28/19 at 09:00 TAMRA JOHNSON Mar 28, 2019 12:38
[2019-03-28] MEDS: KETOROLAC 30 MG INJ IV PRN (14:53)
[2019-03-28 15:18] VITALS: BP 133/60; PULSE 68; RESP 22
[2019-03-28 20:00] VITALS: BP 125/65; PULSE 109; RESP 19
[2019-03-28] MEDS: ATORVASTATIN 40 MG TAB PO SCH (20:42)
[2019-03-28] MEDS: VANCOMYCIN HCL 1.75 GM in SOD CHLORIDE 0.9% 500 ML IVPB SCH (20:42)
[2019-03-29] VITALS (8 sets, daily range): BP systolic 128–160; BP diastolic 74–83; PULSE 85–108; RESP 18–20
[2019-03-29] MEDS: morphine 2 MG INJ IV PRN ×2 (00:26→12:29)
[2019-03-29] MEDS: DIPHENHYDRAMINE 25 MG CAP PO PRN ×2 (01:15→13:38)
[2019-03-29] MEDS: KETOROLAC 30 MG INJ IV PRN ×2 (04:16→15:34)
[2019-03-29] MEDS: FUROSEMIDE 20 MG INJ IV SCH ×2 (09:05→21:50)
[2019-03-29] MEDS: MOMETASONE 0.24 GM INHALER INH SCH ×2 (09:06→21:48)
[2019-03-29] MEDS: FOLIC ACID 1 MG TAB PO SCH (09:06)
[2019-03-29] MEDS: LOSARTAN 50 MG TAB PO SCH (09:06)
[2019-03-29] MEDS: NYSTATIN 30 GM POWDER BTL TOP SCH ×3 (09:06→21:49)
[2019-03-29] MEDS: CLOBETASOL 0.05% 15 GM OINT TOP SCH ×3 (09:06→21:49)
[2019-03-29] MEDS: DAKINS 0.0125%(1/40) 473 ML SOLUTION TP SCH (09:07)
[2019-03-29] MEDS: TRIAMCINOLONE ACET 0.025% 15 GM OINT TOP SCH ×4 (09:07→21:50)
[2019-03-29] MEDS: VANCOMYCIN HCL 1.75 GM in SOD CHLORIDE 0.9% 500 ML IVPB SCH ×2 (09:10→21:48)
[2019-03-29] MEDS: ENOXAPARIN 40 MG/0.4 ML SYG SC SCH (09:17)
--- NOTE | 2019-03-29 13:33 | PN ---
Date/Time of Note Date/Time of Note DATE: 03/29/19 TIME: 13:30 Assessment/Plan VTE Prophylaxis Risk score (from Nsg)>0 risk: 3 Pharmacological prophylaxis: LMWH Lines/Catheters IV Catheter Type (from Nrsg): Saline Lock Urinary Cath still in place: No Assessment/Plan Hospital Course OHS with chronic hypercapnic respiratory failure - Continue nocturnal BIPAP for OHS Acute diastolic CHF: - Requires continued diuresis, Lasix was being held secondary to contraction alkalosis but have resumed Psoriasis: -DC oral prednisone course and s/p methotrexate dose -Continue topical steroids, outpatient follow-up Morbid obesity: - Counseled - Weight loss surgery planned as outpatient Venous insufficiency ulcer of the left foot -Podiatry consultation appreciated, status post debridement -Wound cultures positive for multiple organisms including MRSA, continue vancomycin -ID consultation appreciated -Wound care consult -Pain control, have restarted Toradol, continue tramadol, continue morphine 2 mg IV daily which he takes in the evening to allow him to sleep Prophylaxis: Lovenox 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 Result Diagram: 03/29/19 0604 Results 24hrs Laboratory Tests Test 03/29/19 06:04 Blood Urea Nitrogen 26 H Creatinine 0.86 Subjective 24 Hr Interval Summary Constitutional: no complaints Exam/Review of Systems Exam Vitals Vital Signs Date Temp Pulse Resp B/P (MAP) Pulse Ox O2 O2 Flow FiO2 Time Delivery Rate 03/29/19 98.0 89 20 129/83 96 11:31 (98) 03/29/19 Nasal 3.0 08:22 Cannula 03/29/19 30 05:50 Intake and Output 03/28/19 03/28/19 03/29/19 1414:59 22:59 06:59 IntakeIntake Total 1200 ml 1500 ml OutputOutput Total 1160 ml 1650 ml 1050 ml BalanceBalance -1160 ml -450 ml 450 ml Constitutional: alert, oriented Respiratory: clear to auscultation Cardiovascular: regular rate and rhythm Gastrointestinal: soft; No distended Musculoskeletal: No nl extremities to inspection Results Results 24hrs Laboratory Tests Test 03/29/19 06:04 Blood Urea Nitrogen 26 H Creatinine 0.86 Medications Medication Current Medications IV Flush (NS 3 ml) 3 ml PER PROTOCOL IV ; Start 03/12/19 at 22:30 Ondansetron HCl (Zofran Inj) 4 mg Q6H PRN IV NAUSEA/VOMITING; Start 03/12/19 at 22:30 Acetaminophen (Tylenol Tab) 650 mg Q6H PRN PO .PAIN 1-3 OR TEMP; Start 03/12/19 at 22:30 Enoxaparin Sodium (Lovenox) 40 mg DAILY SC Last administered on 03/29/19 09:17; Admin Dose 40 MG; Start 03/13/19 at 09:00 Albuterol/ Ipratropium (Duoneb) 3 ml Q2H RESP THERAPY PRN HHN SHORTNESS OF BRANDEE ATH Last administered on 03/26/19 21:07; Admin Dose 3 ML; Start 03/12/19 at 22:30 Mometasone Furoate (Asmanex) 1 puff BID INH Last administered on 03/29/19 09:06; Admin Dose 1 PUFF; Start 03/13/19 at 09:00 Atorvastatin Calcium (Lipitor) 40 mg QHS PO Last administered on 03/28/19 20:42; Admin Dose 40 MG; Start 03/13/19 at 21:00 Folic Acid (Folic Acid) 1 mg DAILY PO Last administered on 03/29/19 09:06; Admin Dose 1 MG; Start 03/13/19 at 09:00 Losartan Potassium (Cozaar) 50 mg DAILY PO Last administered on 03/29/19 09:06; Admin Dose 50 MG; Start 03/13/19 at 09:00 Miscellaneous Information Patients own medicat... BID@10,16 XX Last administered on 03/18/19 16:27; Admin Dose 1 EA; Start 03/14/19 at 10:00 Diphenhydramine HCl (Benadryl) 25 mg Q6H PRN PO ITCHING Last administered on 03/29/19 01:15; Admin Dose 25 MG; Start 03/15/19 at 03:30 Non-Formulary Medication 1 ea TID TOP Last administered on 03/29/19 12:30; Admin Dose 1 EA; Start 03/15/19 at 21:00 Guaifenesin (Robitussin Liquid Cup) 100 mg Q4H PRN PO COUGH Last administered on 03/18/19 05:45; Admin Dose 100 MG; Start 03/17/19 at 19:30 Nystatin (Nystatin Powder) 1 applic BID TOP Last administered on 03/29/19 09:06; Admin Dose 1 APPLIC; Start 03/18/19 at 13:30 Clobetasol Propionate (Temovate 0.05% Oint) 1 applic BID TOP Last administered on 03/29/19 09:06; Admin Dose 1 APPLIC; Start 03/23/19 at 21:00 Tramadol HCl (Ultram) 100 mg Q6H PRN PO MODERATE PAIN LEVEL 4-6 Last administered on 03/28/19 05:29; Admin Dose 100 MG; Start 03/24/19 at 12:30 Sodium Hypochlorite (Dakins Diluted ()) 1 applic DAILY TP Last administered on 03/29/19 09:07; Admin Dose 1 APPLIC; Start 03/25/19 at 16:30 Calamine (Calamine Lotion) 1 applic BID PRN TOP ITCHING; Start 03/26/19 at 16:00 Furosemide (Lasix) 20 mg BID IV Last administered on 03/29/19 09:05; Admin Dose 20 MG; Start 03/26/19 at 09:00 Vancomycin HCl (Vanco Iv Per Pharmacy) VANCOMYCIN PER PHARMACY PER PROTOCOL XX ; Start 03/27/19 at 17:00 Morphine Sulfate (morphine) 2 mg DAILY PRN IV SEVERE PAIN LEVEL 7-10 Last administered on 03/29/19 12:29; Admin Dose 2 MG; Start 03/27/19 at 17:00 Ketorolac Tromethamine (Toradol) 30 mg Q6H PRN IV PAIN LEVEL 1-3 Last administered on 03/29/19 04:16; Admin Dose 30 MG; Start 03/28/19 at 13:00; Stop 03/31/19 at 12:59 Vancomycin HCl 1.75 gm/Sodium Chloride 500 ml @ 125 mls/hr Q12H IVPB Last administered on 03/29/19 09:10; Admin Dose 125 MLS/HR; Start 03/28/19 at 20:30 Miscellaneous Information (*Rx Drug Level Order Reminder*) VANCO TR LEVEL PRIOR... 1930 ONCE XX ; Start 03/29/19 at 19:30; Stop 03/29/19 at 19:31 TAMRA JOHNSON Mar 29, 2019 13:32
[2019-03-29] MEDS: ALBUTEROL/IPRATROPIUM (NEB) 3 ML AMP HHN PRN (20:56)
[2019-03-29] MEDS ORDERED: morphine 2 MG INJ IV ONE (21:00)
[2019-03-29] MEDS: ATORVASTATIN 40 MG TAB PO SCH (21:00)
[2019-03-30 04:04] VITALS: BP 143/76; PULSE 99; RESP 20
[2019-03-30] MEDS: KETOROLAC 30 MG INJ IV PRN ×3 (04:27→22:19)
[2019-03-30 07:49] VITALS: BP 152/81; PULSE 106; RESP 18
[2019-03-30] MEDS: LOSARTAN 50 MG TAB PO SCH (09:35)
[2019-03-30] MEDS: FOLIC ACID 1 MG TAB PO SCH (09:36)
[2019-03-30] MEDS: TRIAMCINOLONE ACET 0.025% 15 GM OINT TOP SCH ×3 (09:37→21:00)
[2019-03-30] MEDS: NYSTATIN 30 GM POWDER BTL TOP SCH ×2 (09:37→21:52)
[2019-03-30] MEDS: MOMETASONE 0.24 GM INHALER INH SCH ×2 (09:37→21:51)
[2019-03-30] MEDS: CLOBETASOL 0.05% 15 GM OINT TOP SCH ×2 (09:38→21:52)
[2019-03-30] MEDS: DAKINS 0.0125%(1/40) 473 ML SOLUTION TP SCH (09:38)
[2019-03-30] MEDS: ENOXAPARIN 40 MG/0.4 ML SYG SC SCH (09:54)
[2019-03-30] MEDS: VANCOMYCIN HCL 1.75 GM in SOD CHLORIDE 0.9% 500 ML IVPB SCH ×2 (10:53→21:51)
[2019-03-30] MEDS: FUROSEMIDE 20 MG INJ IV SCH (10:57)
[2019-03-30 15:22] VITALS: BP 167/74; PULSE 101; RESP 18
--- NOTE | 2019-03-30 15:39 | PN ---
Date/Time of Note Date/Time of Note DATE: 03/30/19 TIME: 15:37 Assessment/Plan VTE Prophylaxis Risk score (from Nsg)>0 risk: 5 SCD applied (from Nsg): Yes Pharmacological prophylaxis: heparin Lines/Catheters IV Catheter Type (from Nrsg): Saline Lock Urinary Cath still in place: No Assessment/Plan Hospital Course EXAM Comfortable appearing Breathing nonlabored Morbid obesity Diffuse psoriasis lesions over legs and arms much improved Improved edema in legs A/P: 48 yo male with morbid obesity, OHS and psoriasis here with SOB - Continue nocturnal BIPAP for OHS Acute diastlic CHF: - Continue gentle lasix Psoriasis: - topical steroids Morbid obesity: - Counseled - Weight loss surgery planned as outpatient Abx for cellulitis Dc to [facility]. Result Diagram: 03/30/19 1104 Results 24hrs Laboratory Tests Test 03/29/19 19:40 03/30/19 11:04 Vancomycin Level Trough 14.0 Sodium Level 141 Potassium Level 4.5 Chloride Level 96 L Carbon Dioxide Level 39 H Anion Gap 6 Blood Urea Nitrogen 27 H Creatinine 0.70 Est Glomerular Filtrat Rate mL/min > 60 Glucose Level 153 Calcium Level 9.2 Subjective 24 Hr Interval Summary Free Text/Dictation Stable awaiting placement Skin much improved Exam/Review of Systems Exam Vitals Vital Signs Date Temp Pulse Resp B/P (MAP) Pulse Ox O2 O2 Flow FiO2 Time Delivery Rate 03/30/19 98.6 101 18 167/74 94 15:22 (105) 03/30/19 Nasal 4.0 09:15 Cannula 03/29/19 30 05:50 Intake and Output 03/29/19 03/29/19 03/30/19 1515:00 23:00 07:00 IntakeIntake Total 500 ml 1200 ml 2100 ml OutputOutput Total 750 ml 800 ml BalanceBalance 500 ml 450 ml 1300 ml Results Results 24hrs Laboratory Tests Test 03/29/19 19:40 03/30/19 11:04 Vancomycin Level Trough 14.0 Sodium Level 141 Potassium Level 4.5 Chloride Level 96 L Carbon Dioxide Level 39 H Anion Gap 6 Blood Urea Nitrogen 27 H Creatinine 0.70 Est Glomerular Filtrat Rate mL/min > 60 Glucose Level 153 Calcium Level 9.2 Medications Medication Current Medications IV Flush (NS 3 ml) 3 ml PER PROTOCOL IV ; Start 03/12/19 at 22:30 Ondansetron HCl (Zofran Inj) 4 mg Q6H PRN IV NAUSEA/VOMITING; Start 03/12/19 at 22:30 Acetaminophen (Tylenol Tab) 650 mg Q6H PRN PO .PAIN 1-3 OR TEMP; Start 03/12/19 at 22:30 Enoxaparin Sodium (Lovenox) 40 mg DAILY SC Last administered on 03/30/19 09:54; Admin Dose 40 MG; Start 03/13/19 at 09:00 Albuterol/ Ipratropium (Duoneb) 3 ml Q2H RESP THERAPY PRN HHN SHORTNESS OF BREATH Last administered on 03/29/19 20:56; Admin Dose 3 ML; Start 03/12/19 at 22:30 Mometasone Furoate (Asmanex) 1 puff BID INH Last administered on 03/30/19 09:37; Admin Dose 1 PUFF; Start 03/13/19 at 09:00 Atorvastatin Calcium (Lipitor) 40 mg QHS PO Last administered on 03/28/19 20:42; Admin Dose 40 MG; Start 03/13/19 at 21:00 Folic Acid (Folic Acid) 1 mg DAILY PO Last administered on 03/30/19 09:36; Admin Dose 1 MG; Start 03/13/19 at 09:00 Losartan Potassium (Cozaar) 50 mg DAILY PO Last administered on 03/30/19 09:35; Admin Dose 50 MG; Start 03/13/19 at 09:00 Miscellaneous Information Patients own medicat... BID@10,16 XX Last administere d on 03/18/19 16:27; Admin Dose 1 EA; Start 03/14/19 at 10:00 Diphenhydramine HCl (Benadryl) 25 mg Q6H PRN PO ITCHING Last administered on 03/29/19 13:38; Admin Dose 25 MG; Start 03/15/19 at 03:30 Non-Formulary Medication 1 ea TID TOP Last administered on 03/30/19 14:13; Admin Dose 1 EA; Start 03/15/19 at 21:00 Guaifenesin (Robitussin Liquid Cup) 100 mg Q4H PRN PO COUGH Last administered on 03/18/19 05:45; Admin Dose 100 MG; Start 03/17/19 at 19:30 Nystatin (Nystatin Powder) 1 applic BID TOP Last administered on 03/30/19 09:37; Admin Dose 1 APPLIC; Start 03/18/19 at 13:30 Clobetasol Propionate (Temovate 0.05% Oint) 1 applic BID TOP Last administered on 03/30/19 09:38; Admin Dose 1 APPLIC; Start 03/23/19 at 21:00 Tramadol HCl (Ultram) 100 mg Q6H PRN PO MODERATE PAIN LEVEL 4-6 Last administered on 03/28/19 05:29; Admin Dose 100 MG; Start 03/24/19 at 12:30 Sodium Hypochlorite (Dakins Diluted ()) 1 applic DAILY TP Last administered on 03/30/19 09:38; Admin Dose 1 APPLIC; Start 03/25/19 at 16:30 Calamine (Calamine Lotion) 1 applic BID PRN TOP ITCHING; Start 03/26/19 at 16:00 Vancomycin HCl (Vanco Iv Per Pharmacy) VANCOMYCIN PER PHARMACY PER PROTOCOL XX ; Start 03/27/19 at 17:00 Morphine Sulfate (morphine) 2 mg DAILY PRN IV SEVERE PAIN LEVEL 7-10 Last administered on 03/29/19 12:29; Admin Dose 2 MG; Start 03/27/19 at 17:00 Ketorolac Tromethamine (Toradol) 30 mg Q6H PRN IV PAIN LEVEL 1-3 Last administered on 03/30/19 04:27; Admin Dose 30 MG; Start 03/28/19 at 13:00; Stop 03/31/19 at 12:59 Vancomycin HCl 1.75 gm/Sodium Chloride 500 ml @ 125 mls/hr Q12H IVPB Last administered on 03/30/19 10:53; Admin Dose 125 MLS/HR; Start 03/28/19 at 20:30 Furosemide (Lasix) 20 mg DAILY IV ; Start 03/31/19 at 09:00; Status STEVEN JIMÉNEZ MD Mar 30, 2019 15:39
[2019-03-30 20:00] VITALS: BP 191/90; PULSE 106; RESP 20
[2019-03-30] MEDS: ALBUTEROL/IPRATROPIUM (NEB) 3 ML AMP HHN PRN (20:00)
[2019-03-30] MEDS: ATORVASTATIN 40 MG TAB PO SCH (21:51)
[2019-03-31] VITALS: BP 166/80; PULSE 106; RESP 20
[2019-03-31] MEDS: DIPHENHYDRAMINE 25 MG CAP PO PRN ×2 (00:35→11:49)
[2019-03-31] MEDS: traMADol 50 MG TAB PO PRN ×3 (00:36→21:16)
[2019-03-31 02:15] VITALS: PULSE 115
[2019-03-31] MEDS: morphine 2 MG INJ IV PRN (02:36)
[2019-03-31 04:00] VITALS: BP 162/111; PULSE 89; RESP 20
[2019-03-31 05:30] VITALS: BP 159/104; PULSE 94
[2019-03-31 08:07] VITALS: BP 143/80; PULSE 88; RESP 19
[2019-03-31] MEDS: CLOBETASOL 0.05% 15 GM OINT TOP SCH ×2 (09:00→13:38)
[2019-03-31] MEDS: FOLIC ACID 1 MG TAB PO SCH (09:00)
[2019-03-31] MEDS: LOSARTAN 50 MG TAB PO SCH (09:00)
[2019-03-31] MEDS: TRIAMCINOLONE ACET 0.025% 15 GM OINT TOP SCH ×3 (09:00→20:59)
[2019-03-31] MEDS: DAKINS 0.0125%(1/40) 473 ML SOLUTION TP SCH (09:00)
[2019-03-31] MEDS: FUROSEMIDE 20 MG INJ IV SCH (09:01)
[2019-03-31] MEDS: NYSTATIN 30 GM POWDER BTL TOP SCH ×2 (09:01→20:59)
[2019-03-31] MEDS: MOMETASONE 0.24 GM INHALER INH SCH ×2 (09:01→20:59)
[2019-03-31] MEDS: ENOXAPARIN 40 MG/0.4 ML SYG SC SCH (09:12)
[2019-03-31] MEDS: KETOROLAC 30 MG INJ IV PRN (09:34)
[2019-03-31] MEDS: VANCOMYCIN HCL 1.75 GM in SOD CHLORIDE 0.9% 500 ML IVPB SCH ×2 (09:35→20:59)
--- NOTE | 2019-03-31 13:05 | PN ---
Date/Time of Note Date/Time of Note DATE: 03/31/19 TIME: 13:04 Assessment/Plan VTE Prophylaxis Risk score (from Nsg)>0 risk: 6 SCD applied (from Nsg): Yes Pharmacological prophylaxis: heparin Lines/Catheters IV Catheter Type (from Nrsg): Saline Lock Urinary Cath still in place: No Assessment/Plan Hospital Course EXAM Comfortable appearing Breathing nonlabored Morbid obesity Diffuse psoriasis lesions over legs and arms much improved Improved edema in legs A/P: 48 yo male with morbid obesity, OHS and psoriasis here with SOB - Continue nocturnal BIPAP for OHS Acute diastlic CHF: - Continue gentle lasix Psoriasis: - topical steroids Morbid obesity: - Counseled - Weight loss surgery planned as outpatient Vancomycin x 7 days for cellulitis Dc to [facility]. Result Diagram: 03/31/19 0811 03/31/19 0811 Results 24hrs Laboratory Tests Test 03/31/19 08:11 White Blood Count 10.7 Red Blood Count 4.11 L Hemoglobin 9.7 L Hematocrit 34.9 L Mean Corpuscular Volume 84.9 Mean Corpuscular Hemoglobin 23.6 L Mean Corpuscular Hemoglobin Concent 27.8 L Red Cell Distribution Width 21.8 H Platelet Count 358 Mean Platelet Volume 9.6 Immature Granulocytes % 1.200 H Neutrophils % 73.1 Lymphocytes % 14.2 L Monocytes % 7.5 Eosinophils % 3.5 Basophils % 0.5 Nucleated Red Blood Cells % 0.0 Immature Granulocytes # 0.130 H Neutrophils # 7.8 H Lymphocytes # 1.5 Monocytes # 0.8 Eosinophils # 0.4 Basophils # 0.1 Nucleated Red Blood Cells # 0.0 Sodium Level 141 Potassium Level 4.4 Chloride Level 97 Carbon Dioxide Level 39 H Anion Gap 5 Blood Urea Nitrogen 21 H Creatinine 0.62 Est Glomerular Filtrat Rate mL/min > 60 Glucose Level 100 # Calcium Level 9.1 Subjective 24 Hr Interval Summary Free Text/Dictation Doing well Working with PT Awaiting placement Exam/Review of Systems Exam Vitals Vital Signs Date Temp Pulse Resp B/P (MAP) Pulse Ox O2 O2 Flow FiO2 Time Delivery Rate 03/31/19 98.0 88 19 143/80 90 08:07 (101) 03/31/19 Nasal 4.0 08:00 Cannula 03/31/19 30 02:15 Intake and Output 03/30/19 03/30/19 03/31/19 1515:00 23:00 07:00 IntakeIntake Total 2200 ml 1800 ml OutputOutput Total 1000 ml 550 ml BalanceBalance 1200 ml 1250 ml Results Results 24hrs Laboratory Tests Test 03/31/19 08:11 White Blood Count 10.7 Red Blood Count 4.11 L Hemoglobin 9.7 L Hematocrit 34.9 L Mean Corpuscular Volume 84.9 Mean Corpuscular Hemoglobin 23.6 L Mean Corpuscular Hemoglobin Concent 27.8 L Red Cell Distribution Width 21.8 H Platelet Count 358 Mean Platelet Volume 9.6 Immature Granulocytes % 1.200 H Neutrophils % 73.1 Lymphocytes % 14.2 L Monocytes % 7.5 Eosinophils % 3.5 Basophils % 0.5 Nucleated Red Blood Cells % 0.0 Immature Granulocytes # 0.130 H Neutrophils # 7.8 H Lymphocytes # 1.5 Monocytes # 0.8 Eosinophils # 0.4 Basophils # 0.1 Nucleated Red Blood Cells # 0.0 Sodium Level 141 Potassium Level 4.4 Chloride Level 97 Carbon Dioxide Level 39 H Anion Gap 5 Blood Urea Nitrogen 21 H Creatinine 0.62 Est Glomerular Filtrat Rate mL/min > 60 Glucose Level 100 # Calcium Level 9.1 Medications Medication Current Medications IV Flush (NS 3 ml) 3 ml PER PROTOCOL IV ; Start 03/12/19 at 22:30 Ondansetron HCl (Zofran Inj) 4 mg Q6H PRN IV NAUSEA/VOMITING; Start 03/12/19 at 22:30 Acetaminophen (Tylenol Tab) 650 mg Q6H PRN PO .PAIN 1-3 OR TEMP; Start 03/12/19 at 22:30 Enoxaparin Sodium (Lovenox) 40 mg DAILY SC Last administered on 03/31/19at 09:12; Admin Dose 40 MG; Start 03/13/19 at 09:00 Albuterol/ Ipratropium (Duoneb) 3 ml Q2H RESP THERAPY PRN HHN SHORTNESS OF BREATH Last administered on 03/30/19at 20:00; Admin Dose 3 ML; Start 03/12/19 at 22:30 Mometasone Furoate (Asmanex) 1 puff BID INH Last administered on 03/31/19at 09:01; Admin Dose 1 PUFF; Start 03/13/19 at 09:00 Atorvastatin Calcium (Lipitor) 40 mg QHS PO Last administered on 03/30/19 21:51; Admin Dose 40 MG; Start 03/13/19 at 21:00 Folic Acid (Folic Acid) 1 mg DAILY PO Last administered on 03/31/19 09:00; Admin Dose 1 MG; Start 03/13/19 at 09:00 Losartan Potassium (Cozaar) 50 mg DAILY PO Last administered on 03/31/19 09:00; Admin Dose 50 MG; Start 03/13/19 at 09:00 Miscellaneous Information Patients own medicat... BID@10,16 XX Last administere d on 03/18/19 16:27; Admin Dose 1 EA; Start 03/14/19 at 10:00 Diphenhydramine HCl (Benadryl) 25 mg Q6H PRN PO ITCHING Last administered on 03/31/19 11:49; Admin Dose 25 MG; Start 03/15/19 at 03:30 Non-Formulary Medication 1 ea TID TOP Last administered on 03/31/19 09:00; Admin Dose 1 EA; Start 03/15/19 at 21:00 Guaifenesin (Robitussin Liquid Cup) 100 mg Q4H PRN PO COUGH Last administered on 03/18/19 05:45; Admin Dose 100 MG; Start 03/17/19 at 19:30 Nystatin (Nystatin Powder) 1 applic BID TOP Last administered on 03/31/19 09:01; Admin Dose 1 APPLIC; Start 03/18/19 at 13:30 Clobetasol Propionate (Temovate 0.05% Oint) 1 applic BID TOP Last administered on 03/31/19 09:00; Admin Dose 1 APPLIC; Start 03/23/19 at 21:00 Tramadol HCl (Ultram) 100 mg Q6H PRN PO MODERATE PAIN LEVEL 4-6 Last administered on 03/31/19 07:00; Admin Dose 100 MG; Start 03/24/19 at 12:30 Sodium Hypochlorite (Dakins Diluted (40)) 1 applic DAILY TP Last administered on 03/31/19 09:00; Admin Dose 1 APPLIC; Start 03/25/19 at 16:30 Calamine (Calamine Lotion) 1 applic BID PRN TOP ITCHING; Start 03/26/19 at 16:00 Vancomycin HCl (Vanco Iv Per Pharmacy) VANCOMYCIN PER PHARMACY PER PROTOCOL XX ; Start 03/27/19 at 17:00 Morphine Sulfate (morphine) 2 mg DAILY PRN IV SEVERE PAIN LEVEL 7-10 Last administered on 03/31/19at 02:36; Admin Dose 2 MG; Start 03/27/19 at 17:00 Vancomycin HCl 1.75 gm/Sodium Chloride 500 ml @ 125 mls/hr Q12H IVPB Last administered on 03/31/19at 09:35; Admin Dose 125 MLS/HR; Start 03/28/19 at 20:30 Furosemide (Lasix) 20 mg DAILY IV Last administered on 03/31/19at 09:01; Admin Dose 20 MG; Start 03/31/19 at 09:00 Miscellaneous Information (*Rx Drug Level Order Reminder*) VANCO TROUGH ON @ 730 0730 ONCE XX ; Start 04/01/19 at 07:30; Stop 04/01/19 at 07:31 STEVEN MCNEAL MD Mar 31, 2019 13:05
[2019-03-31 15:46] VITALS: BP 173/86; PULSE 78; RESP 19
[2019-03-31] MEDS: ATORVASTATIN 40 MG TAB PO SCH (21:00)
[2019-03-31] MEDS ORDERED: KETOROLAC 30 MG INJ IV PRN (22:00)
[2019-04-01] VITALS: BP 146/76; PULSE 101; RESP 20
[2019-04-01] MEDS: ALBUTEROL/IPRATROPIUM (NEB) 3 ML AMP HHN PRN (01:48)
[2019-04-01 04:00] VITALS: BP 144/65; PULSE 117; RESP 19
[2019-04-01] MEDS: DIPHENHYDRAMINE 25 MG CAP PO PRN (04:58)
[2019-04-01 07:20] VITALS: BP 133/91; PULSE 103; RESP 18
[2019-04-01] MEDS: morphine 2 MG INJ IV PRN (08:04)
[2019-04-01] MEDS: FOLIC ACID 1 MG TAB PO SCH (09:33)
[2019-04-01] MEDS: MOMETASONE 0.24 GM INHALER INH SCH ×2 (09:35→20:32)
[2019-04-01] MEDS: ENOXAPARIN 40 MG/0.4 ML SYG SC SCH (09:35)
[2019-04-01] MEDS: TRIAMCINOLONE ACET 0.025% 15 GM OINT TOP SCH ×3 (09:36→20:34)
[2019-04-01] MEDS: CLOBETASOL 0.05% 15 GM OINT TOP SCH ×2 (09:36→20:34)
[2019-04-01] MEDS: DAKINS 0.0125%(1/40) 473 ML SOLUTION TP SCH (09:36)
[2019-04-01] MEDS: FUROSEMIDE 20 MG INJ IV SCH (09:37)
[2019-04-01] MEDS: LOSARTAN 50 MG TAB PO SCH (09:38)
[2019-04-01] MEDS: NYSTATIN 30 GM POWDER BTL TOP SCH ×2 (09:47→20:34)
[2019-04-01 10:05] VITALS: PULSE 93
[2019-04-01] MEDS: VANCOMYCIN HCL 1.75 GM in SOD CHLORIDE 0.9% 500 ML IVPB SCH ×2 (10:13→20:32)
--- NOTE | 2019-04-01 13:28 | PN ---
Date/Time of Note Date/Time of Note DATE: 04/01/19 TIME: 13:28 Assessment/Plan VTE Prophylaxis Risk score (from Nsg)>0 risk: 7 SCD applied (from Nsg): Yes Pharmacological prophylaxis: heparin Lines/Catheters IV Catheter Type (from Nrsg): Saline Lock Urinary Cath still in place: No Assessment/Plan Hospital Course EXAM Comfortable appearing Breathing nonlabored Morbid obesity Diffuse psoriasis lesions over legs and arms much improved Improved edema in legs A/P: 48 yo male with morbid obesity, OHS and psoriasis here with SOB - Continue nocturnal BIPAP for OHS Acute diastlic CHF: - Continue gentle lasix Psoriasis: - topical steroids Morbid obesity: - Counseled - Weight loss surgery planned as outpatient Vancomycin x 7 days for cellulitis Dc to [facility]. Result Diagram: 03/31/19 0811 03/31/19 0811 Results 24hrs Laboratory Tests Test 04/01/19 08:34 Vancomycin Level Trough 6.5 L Subjective 24 Hr Interval Summary Free Text/Dictation Skin seems to be worsening a bit. Requests evaluation Breathing comfortable Pain in foot present Exam/Review of Systems Exam Vitals Vital Signs Date Temp Pulse Resp B/P (MAP) Pulse Ox O2 O2 Flow FiO2 Time Delivery Rate 04/01/19 4.0 11:45 04/01/19 93 99 30 10:05 04/01/19 Nasal 08:00 Cannula 04/01/19 98.3 18 133/91 07:20 (105) Intake and Output 03/31/19 03/31/19 04/01/19 1515:00 23:00 07:00 IntakeIntake Total 1600 ml 1200 ml OutputOutput Total 1000 ml 900 ml BalanceBalance 600 ml 300 ml Results Results 24hrs Laboratory Tests Test 04/01/19 08:34 Vancomycin Level Trough 6.5 L Medications Medication Current Medications IV Flush (NS 3 ml) 3 ml PER PROTOCOL IV ; Start 03/12/19 at 22:30 Ondansetron HCl (Zofran Inj) 4 mg Q6H PRN IV NAUSEA/VOMITING; Start 03/12/19 at 22:30 Acetaminophen (Tylenol Tab) 650 mg Q6H PRN PO .PAIN 1-3 OR TEMP; Start 03/12/19 at 22:30 Enoxaparin Sodium (Lovenox) 40 mg DAILY SC Last administered on 04/01/19at 09:35; Admin Dose 40 MG; Start 03/13/19 at 09:00 Albuterol/ Ipratropium (Duoneb) 3 ml Q2H RESP THERAPY PRN HHN SHORTNESS OF BREATH Last administered on 04/01/19 01:48; Admin Dose 3 ML; Start 03/12/19 at 22:30 Mometasone Furoate (Asmanex) 1 puff BID INH Last administered on 04/01/19 09:35; Admin Dose 1 PUFF; Start 03/13/19 at 09:00 Atorvastatin Calcium (Lipitor) 40 mg QHS PO Last administered on 03/31/19 21:00; Admin Dose 40 MG; Start 03/13/19 at 21:00 Folic Acid (Folic Acid) 1 mg DAILY PO Last administered on 04/01/19 09:33; Admin Dose 1 MG; Start 03/13/19 at 09:00 Losartan Potassium (Cozaar) 50 mg DAILY PO Last administered on 04/01/19 09:38; Admin Dose 50 MG; Start 03/13/19 at 09:00 Miscellaneous Information Patients own medicat... BID@10,16 XX Last admi nistered on 03/18/19 16:27; Admin Dose 1 EA; Start 03/14/19 at 10:00 Diphenhydramine HCl (Benadryl) 25 mg Q6H PRN PO ITCHING Last administered on 04/01/19 04:58; Admin Dose 25 MG; Start 03/15/19 at 03:30 Non-Formulary Medication 1 ea TID TOP Last administered on 04/01/19 12:46; Admin Dose 1 EA; Start 03/15/19 at 21:00 Guaifenesin (Robitussin Liquid Cup) 100 mg Q4H PRN PO COUGH Last administered on 03/18/19 05:45; Admin Dose 100 MG; Start 03/17/19 at 19:30 Nystatin (Nystatin Powder) 1 applic BID TOP Last administered on 04/01/19 09:47; Admin Dose 1 APPLIC; Start 03/18/19 at 13:30 Clobetasol Propionate (Temovate 0.05% Oint) 1 applic BID TOP Last administered on 04/01/19 09:36; Admin Dose 1 APPLIC; Start 03/23/19 at 21:00 Tramadol HCl (Ultram) 100 mg Q6H PRN PO MODERATE PAIN LEVEL 4-6 Last administered on 03/31/19at 21:16; Admin Dose 100 MG; Start 03/24/19 at 12:30 Sodium Hypochlorite (Dakins Diluted ()) 1 applic DAILY TP Last administered on 04/01/19at 09:36; Admin Dose 1 APPLIC; Start 03/25/19 at 16:30 Calamine (Calamine Lotion) 1 applic BID PRN TOP ITCHING; Start 03/26/19 at 16:00 Vancomycin HCl (Vanco Iv Per Pharmacy) VANCOMYCIN PER PHARMACY PER PROTOCOL XX ; Start 03/27/19 at 17:00 Morphine Sulfate (morphine) 2 mg DAILY PRN IV SEVERE PAIN LEVEL 7-10 Last administered on 04/01/19at 08:04; Admin Dose 2 MG; Start 03/27/19 at 17:00 Vancomycin HCl 1.75 gm/Sodium Chloride 500 ml @ 125 mls/hr Q12H IVPB Last administered on 04/01/19at 10:13; Admin Dose 125 MLS/HR; Start 03/28/19 at 20:30 Furosemide (Lasix) 20 mg DAILY IV Last administered on 04/01/19at 09:37; Admin Dose 20 MG; Start 03/31/19 at 09:00 Miscellaneous Information (*Rx Drug Level Order Reminder*) VANCO TR LEVEL PRIOR... 0730 ONCE XX ; Start 04/02/19 at 07:30; Stop 04/02/19 at 07:31 STEVEN MCNEAL MD April 01, 2019 13:28
[2019-04-01 16:09] VITALS: BP 141/77; PULSE 103; RESP 18
[2019-04-01] MEDS ORDERED: KETOROLAC 15 MG INJ IV STA (19:04)
[2019-04-01 19:56] VITALS: BP 131/63; PULSE 124; RESP 22
[2019-04-01] MEDS: ATORVASTATIN 40 MG TAB PO SCH (20:32)
[2019-04-02] VITALS: BP 145/65; PULSE 108; RESP 22
[2019-04-02] MEDS: morphine 2 MG INJ IV PRN (00:31)
[2019-04-02] MEDS ORDERED: FUROSEMIDE 20 MG INJ IV ONE (01:00)
[2019-04-02] MEDS: traMADol 50 MG TAB PO PRN (03:13)
[2019-04-02 04:00] VITALS: BP 151/82; PULSE 107; RESP 20
[2019-04-02] MEDS: DIPHENHYDRAMINE 25 MG CAP PO PRN (05:32)
[2019-04-02 07:12] VITALS: BP 170/75; RESP 18
[2019-04-02] MEDS: FUROSEMIDE 20 MG INJ IV SCH (08:37)
[2019-04-02] MEDS: FOLIC ACID 1 MG TAB PO SCH (08:37)
[2019-04-02] MEDS: LOSARTAN 50 MG TAB PO SCH (08:37)
[2019-04-02] MEDS: MOMETASONE 0.24 GM INHALER INH SCH ×2 (08:38→20:33)
[2019-04-02] MEDS: ENOXAPARIN 40 MG/0.4 ML SYG SC SCH (08:45)
[2019-04-02] MEDS: VANCOMYCIN HCL 1.75 GM in SOD CHLORIDE 0.9% 500 ML IVPB SCH (09:43)
[2019-04-02] MEDS: DAKINS 0.0125%(1/40) 473 ML SOLUTION TP SCH (09:43)
[2019-04-02] MEDS: NYSTATIN 30 GM POWDER BTL TOP SCH ×2 (09:43→20:38)
[2019-04-02] MEDS: TRIAMCINOLONE ACET 0.025% 15 GM OINT TOP SCH ×3 (09:43→20:39)
[2019-04-02] MEDS: CLOBETASOL 0.05% 15 GM OINT TOP SCH ×2 (09:43→20:38)
--- NOTE | 2019-04-02 12:51 | PN ---
Date/Time of Note Date/Time of Note DATE: 04/02/19 TIME: 12:50 Assessment/Plan VTE Prophylaxis Risk score (from Nsg)>0 risk: 2 SCD applied (from Nsg): Yes Pharmacological prophylaxis: heparin Lines/Catheters IV Catheter Type (from Nrsg): Saline Lock Urinary Cath still in place: No Assessment/Plan Hospital Course EXAM Comfortable appearing Breathing nonlabored Morbid obesity Diffuse psoriasis lesions over legs and arms much improved Improved edema in legs A/P: 48 yo male with morbid obesity, OHS and psoriasis here with SOB - Continue nocturnal BIPAP for OHS MRSA represents colonization. No longer showing signs of active infection Acute diastlic CHF: - Continue gentle lasix Psoriasis: - topical steroids Morbid obesity: - Counseled - Weight loss surgery planned as outpatient Vancomycin x 7 days for cellulitis Dc to [facility]. Result Diagram: 03/31/19 0811 04/02/19 0739 Results 24hrs Laboratory Tests Test 04/02/19 07:39 Blood Urea Nitrogen 16 Creatinine 0.59 L Vancomycin Level Trough 6.7 L Subjective 24 Hr Interval Summary Free Text/Dictation Complains of foot pain Exam/Review of Systems Exam Vitals Vital Signs Date Temp Pulse Resp B/P (MAP) Pulse Ox O2 O2 Flow FiO2 Time Delivery Rate 04/02/19 99 Nasal 5.0 07:13 Cannula 04/02/19 18 170/75 07:12 (106) 04/02/19 98.0 107 04:00 04/01/19 30 10:05 Intake and Output 04/01/19 04/01/19 04/02/19 1515:00 23:00 07:00 IntakeIntake Total 900 ml OutputOutput Total 1200 ml 1000 ml BalanceBalance -300 ml -1000 ml Results Results 24hrs Laboratory Tests Test 04/02/19 07:39 Blood Urea Nitrogen 16 Creatinine 0.59 L Vancomycin Level Trough 6.7 L Medications Medication Current Medications IV Flush (NS 3 ml) 3 ml PER PROTOCOL IV ; Start 03/12/19 at 22:30 Ondansetron HCl (Zofran Inj) 4 mg Q6H PRN IV NAUSEA/VOMITING; Start 03/12/19 at 22:30 Acetaminophen (Tylenol Tab) 650 mg Q6H PRN PO .PAIN 1-3 OR TEMP; Start 03/12/19 at 22:30 Enoxaparin Sodium (Lovenox) 40 mg DAILY SC Last administered on 04/02/19 08:45; Admin Dose 40 MG; Start 03/13/19 at 09:00 Albuterol/ Ipratropium (Duoneb) 3 ml Q2H RESP THERAPY PRN HHN SHORTNESS OF BREATH Last administered on 04/01/19 01:48; Admin Dose 3 ML; Start 03/12/19 at 22:30 Mometasone Furoate (Asmanex) 1 puff BID INH Last administered on 04/02/19 08:38; Admin Dose 1 PUFF; Start 03/13/19 at 09:00 Atorvastatin Calcium (Lipitor) 40 mg QHS PO Last administered on 04/01/19 20:32; Admin Dose 40 MG; Start 03/13/19 at 21:00 Folic Acid (Folic Acid) 1 mg DAILY PO Last administered on 04/02/19 08:37; Admin Dose 1 MG; Start 03/13/19 at 09:00 Losartan Potassium (Cozaar) 50 mg DAILY PO Last administered on 04/02/19 08:37; Admin Dose 50 MG; Start 03/13/19 at 09:00 Miscellaneous Information Patients own medicat... BID@10,16 XX Last administered on 03/18/19 16:27; Admin Dose 1 EA; Start 03/14/19 at 10:00 Diphenhydramine HCl (Benadryl) 25 mg Q6H PRN PO ITCHING Last administered on 04/02/19 05:32; Admin Dose 25 MG; Start 03/15/19 at 03:30 Non-Formulary Medication 1 ea TID TOP Last administered on 04/02/19 09:43; Admin Dose 1 EA; Start 03/15/19 at 21:00 Guaifenesin (Robitussin Liquid Cup) 100 mg Q4H PRN PO COUGH Last administered on 03/18/19 05:45; Admin Dose 100 MG; Start 03/17/19 at 19:30 Nystatin (Nystatin Powder) 1 applic BID TOP Last administered on 04/02/19 09:43; Admin Dose 1 APPLIC; Start 03/18/19 at 13:30 Clobetasol Propionate (Temovate 0.05% Oint) 1 applic BID TOP Last administered on 5/2/19at 09:43; Admin Dose 1 APPLIC; Start 03/23/19 at 21:00 Tramadol HCl (Ultram) 100 mg Q6H PRN PO MODERATE PAIN LEVEL 4-6 Last adm inistered on 04/02/19 03:13; Admin Dose 100 MG; Start 03/24/19 at 12:30 Sodium Hypochlorite (Dakins Diluted ()) 1 applic DAILY TP Last administered on 04/02/19 09:43; Admin Dose 1 APPLIC; Start 03/25/19 at 16:30 Calamine (Calamine Lotion) 1 applic BID PRN TOP ITCHING; Start 03/26/19 at 16:00 Vancomycin HCl (Vanco Iv Per Pharmacy) VANCOMYCIN PER PHARMACY PER PROTOCOL XX ; Start 03/27/19 at 17:00 Morphine Sulfate (morphine) 2 mg DAILY PRN IV SEVERE PAIN LEVEL 7-10 Last administered on 04/02/19 00:31; Admin Dose 2 MG; Start 03/27/19 at 17:00 Vancomycin HCl 1.75 gm/Sodium Chloride 500 ml @ 125 mls/hr Q12H IVPB Last administered on 04/02/19 09:43; Admin Dose 125 MLS/HR; Start 03/28/19 at 20:30 Furosemide (Lasix) 20 mg DAILY IV Last administered on 04/02/19 08:37; Admin Dose 20 MG; Start 03/31/19 at 09:00 STEVEN MCNEAL MD April 02, 2019 12:51
[2019-04-02 15:29] VITALS: BP 130/69; PULSE 79; RESP 16
[2019-04-02] MEDS ORDERED: KETOROLAC 15 MG INJ IM STA (18:05)
[2019-04-02] MEDS: VANCOMYCIN HCL 1.5 GM in SOD CHLORIDE 0.9% 250 ML IVPB SCH (18:32)
[2019-04-02 20:00] VITALS: BP 138/72; PULSE 117; RESP 22
[2019-04-02] MEDS: ATORVASTATIN 40 MG TAB PO SCH (20:32)
[2019-04-02] MEDS ORDERED: KETOROLAC 30 MG INJ IV PRN (22:30)
[2019-04-03] MEDS ORDERED: PANTOPRAZOLE 40 MG INJ IV ONE (01:00)
[2019-04-03] MEDS: morphine 2 MG INJ IV PRN (01:25)
[2019-04-03] MEDS: VANCOMYCIN HCL 1.5 GM in SOD CHLORIDE 0.9% 250 ML IVPB SCH ×3 (02:00→21:34)
[2019-04-03 04:00] VITALS: BP 135/89; PULSE 105; RESP 22
[2019-04-03 08:01] VITALS: BP 143/83; PULSE 110; RESP 18
[2019-04-03] MEDS: TRIAMCINOLONE ACET 0.025% 15 GM OINT TOP SCH ×4 (09:00→21:13)
[2019-04-03] MEDS: FOLIC ACID 1 MG TAB PO SCH (09:07)
[2019-04-03] MEDS: LOSARTAN 50 MG TAB PO SCH (09:07)
[2019-04-03] MEDS: traMADol 50 MG TAB PO PRN (09:08)
[2019-04-03] MEDS: FUROSEMIDE 20 MG INJ IV SCH (09:08)
[2019-04-03] MEDS: MOMETASONE 0.24 GM INHALER INH SCH ×2 (09:13→20:32)
[2019-04-03] MEDS: ENOXAPARIN 40 MG/0.4 ML SYG SC SCH (09:47)
[2019-04-03] MEDS: ALBUTEROL/IPRATROPIUM (NEB) 3 ML AMP HHN PRN (11:23)
--- NOTE | 2019-04-03 12:28 | CONS ---
Assessment/Plan Assessment/Plan Assessment/Plan (Daily) Venous ulceration to left lower extremity - improved Venous insufficiency Cellulitis - improved Psoriasis Morbid obesity JANA Lymphedema Plan Wound cultures showing MRSA, serratia, enterococcus, staph coag neg, corynebacterium. Continue daily dressing changes with dakins irrigation and betadine and compression therapy. Patient would benefit from lymphedema pumps for usp management of lower extremity swelling. Non invasive vascular studies performed and were unable to visualize vessels. and bilateral x-rays did not show any fracture fragments, dislocations, or any cortical disruptions. Continue with local wound care. Patient will benefit from SNF placement. Appreciate ID recommendations. Consultation Date/Type/Reason Admit Date/Time Mar 12, 2019 at 18:53 Initial Consult Date 03/13/19 Date/Time of Note DATE: 04/03/19 TIME: 12:27 24 HR Interval Summary Free Text/Dictation No acute events overnight Exam/Review of Systems Exam Vitals Vital Signs Date Temp Pulse Resp B/P (MAP) Pulse Ox O2 O2 Flow FiO2 Time Delivery Rate 04/03/19 113 18 99 Nasal 5.0 11:24 Cannula 04/03/19 98.3 143/83 08:01 (103) 04/01/19 30 10:05 Intake and Output 04/02/19 04/02/19 04/03/19 1515:00 23:00 07:00 IntakeIntake Total 3250 ml 2500 ml OutputOutput Total 1700 ml 1050 ml BalanceBalance 1550 ml 1450 ml Exam DP/PT pulses non palpable Severe 4+ pitting edema with cobblestone appreciated to lower extremities. Decreased amount of generalized weeping serous fluid noted to bilateral lower extremities with less serous blister formations Skin plaques appreciated to bilateral lower extremity No active drainage to the left medial venous ulceration site, seromas/blisters appear epithelialized along with the venous ulceration site. No proximal streaking appreciated. Protective sensations intact pain on palpation to medial aspect of the left foot and ankle region. Muscle strength 5/5 in all compartments of the foot. mycotic toe nails x10 Results Result Diagram: 04/03/19 0826 04/02/19 0739 Results 24hrs Laboratory Tests Test 04/03/19 01:09 04/03/19 08:26 White Blood Count 12.9 #H 14.2 H Red Blood Count 4.03 L 4.01 L Hemoglobin 9.6 L 9.6 L Hematocrit 34.7 L 34.6 L Mean Corpuscular Volume 86.1 86.3 Mean Corpuscular Hemoglobin 23.8 L 23.9 L Mean Corpuscular Hemoglobin Concent 27.7 L 27.7 L Red Cell Distribution Width 21.4 H 21.5 H Platelet Count 378 396 Mean Platelet Volume 9.3 9.4 Immature Granulocytes % 1.900 H 2.200 H Neutrophils % 74.9 74.5 Lymphocytes % 12.4 L 11.4 L Monocytes % 8.2 9.0 Eosinophils % 2.3 2.6 Basophils % 0.3 0.3 Nucleated Red Blood Cells % 0.0 0.1 H Immature Granulocytes # 0.250 H 0.310 H Neutrophils # 9.6 H 10.6 H Lymphocytes # 1.6 1.6 Monocytes # 1.1 H 1.3 H Eosinophils # 0.3 0.4 Basophils # 0.0 0.0 Nucleated Red Blood Cells # 0.0 0.0 Medications Medication Current Medications IV Flush (NS 3 ml) 3 ml PER PROTOCOL IV ; Start 03/12/19 at 22:30 Ondansetron HCl (Zofran Inj) 4 mg Q6H PRN IV NAUSEA/VOMITING; Start 03/12/19 at 22:30 Acetaminophen (Tylenol Tab) 650 mg Q6H PRN PO .PAIN 1-3 OR TEMP; Start 03/12/19 at 22:30 Enoxaparin Sodium (Lovenox) 40 mg DAILY SC Last administered on 04/03/19at 09:47; Admin Dose 40 MG; Start 03/13/19 at 09:00 Albuterol/ Ipratropium (Duoneb) 3 ml Q2H RESP THERAPY PRN HHN SHORTNESS OF BREATH Last administered on 04/03/19 11:23; Admin Dose 3 ML; Start 03/12/19 at 22:30 Mometasone Furoate (Asmanex) 1 puff BID INH Last administered on 04/03/19 09:13; Admin Dose 1 PUFF; Start 03/13/19 at 09:00 Atorvastatin Calcium (Lipitor) 40 mg QHS PO Last administered on 04/02/19at 20:32; Admin Dose 40 MG; Start 03/13/19 at 21:00 Folic Acid (Folic Acid) 1 mg DAILY PO Last administered on 04/03/19 09:07; Admin Dose 1 MG; Start 03/13/19 at 09:00 Losartan Potassium (Cozaar) 50 mg DAILY PO Last administered on 04/03/19 09:07; Admin Dose 50 MG; Start 03/13/19 at 09:00 Miscellaneous Information Patients own medicat... BID@10,16 XX Last administered on 03/18/19 16:27; Admin Dose 1 EA; Start 03/14/19 at 10:00 Diphenhydramine HCl (Benadryl) 25 mg Q6H PRN PO ITCHING Last administered on 04/02/19 05:32; Admin Dose 25 MG; Start 03/15/19 at 03:30 Non-Formulary Medication 1 ea TID TOP Last administered on 04/02/19 20:39; Admin Dose 1 EA; Start 03/15/19 at 21:00 Guaifenesin (Robitussin Liquid Cup) 100 mg Q4H PRN PO COUGH Last administered on 03/18/19 05:45; Admin Dose 100 MG; Start 03/17/19 at 19:30 Nystatin (Nystatin Powder) 1 applic BID TOP Last administered on 04/02/19 20:38; Admin Dose 1 APPLIC; Start 03/18/19 at 13:30 Clobetasol Propionate (Temovate 0.05% Oint) 1 applic BID TOP Last administered on 04/02/19 20:38; Admin Dose 1 APPLIC; Start 03/23/19 at 21:00 Tramadol HCl (Ultram) 100 mg Q6H PRN PO MODERATE PAIN LEVEL 4-6 Last administered on 04/03/19 09:08; Admin Dose 100 MG; Start 03/24/19 at 12:30 Sodium Hypochlorite (Dakins Diluted (40)) 1 applic DAILY TP Last administered on 04/02/19 09:43; Admin Dose 1 APPLIC; Start 03/25/19 at 16:30 Calamine (Calamine Lotion) 1 applic BID PRN TOP ITCHING; Start 03/26/19 at 16:00 Vancomycin HCl (Vanco Iv Per Pharmacy) VANCOMYCIN PER PHARMACY PER PROTOCOL XX ; Start 03/27/19 at 17:00 Morphine Sulfate (morphine) 2 mg DAILY PRN IV SEVERE PAIN LEVEL 7-10 Last admi nistered on 04/03/19 01:25; Admin Dose 2 MG; Start 03/27/19 at 17:00 Furosemide (Lasix) 20 mg DAILY IV Last administered on 04/03/19at 09:08; Admin Dose 20 MG; Start 03/31/19 at 09:00 Vancomycin HCl 1.5 gm/Sodium Chloride 250 ml @ 83.333 mls/ hr Q8H IVPB Last administered on 04/03/19at 09:10; Admin Dose 83.333 MLS/HR; Start 04/02/19 at 18:00 Miscellaneous Information (*Rx Drug Level Order Reminder*) VANCO TR LEVEL PRIOR... 1700 ONCE XX ; Start 04/03/19 at 17:00; Stop 04/03/19 at 17:01 BROOKE ADAMSON DPM April 03, 2019 12:27
[2019-04-03] MEDS: NYSTATIN 30 GM POWDER BTL TOP SCH ×2 (14:21→21:13)
[2019-04-03] MEDS: CLOBETASOL 0.05% 15 GM OINT TOP SCH ×2 (14:21→21:13)
[2019-04-03] MEDS: DAKINS 0.0125%(1/40) 473 ML SOLUTION TP SCH (14:22)
[2019-04-03 14:45] VITALS: PULSE 104
--- NOTE | 2019-04-03 15:12 | PN ---
Date/Time of Note Date/Time of Note DATE: 04/03/19 TIME: 15:07 Assessment/Plan VTE Prophylaxis Risk score (from Nsg)>0 risk: 4 SCD applied (from Nsg): Yes Pharmacological prophylaxis: heparin Lines/Catheters IV Catheter Type (from Nrs): Saline Lock Urinary Cath still in place: No Assessment/Plan Hospital Course EXAM Comfortable appearing Breathing nonlabored Morbid obesity Diffuse psoriasis lesions over legs and arms much improved Improved edema in legs A/P: 48 yo male with morbid obesity, OHS and psoriasis here with SOB - Continue nocturnal BIPAP for OHS MRSA represents colonization. No longer showing signs of active infection Acute diastlic CHF: - Continue gentle lasix Psoriasis: - topical steroids - Unfortunately I am unable to find a forensic psychologist to do an inpatient consult - Continue outpatient management upon discharge Morbid obesity: - Counseled - Weight loss surgery planned as outpatient Vancomycin x 7 days for cellulitis Dc to [facility]. Result Diagram: 04/03/19 0826 04/02/19 0739 Results 24hrs Laboratory Tests Test 04/03/19 01:09 04/03/19 08:26 White Blood Count 12.9 #H 14.2 H Red Blood Count 4.03 L 4.01 L Hemoglobin 9.6 L 9.6 L Hematocrit 34.7 L 34.6 L Mean Corpuscular Volume 86.1 86.3 Mean Corpuscular Hemoglobin 23.8 L 23.9 L Mean Corpuscular Hemoglobin Concent 27.7 L 27.7 L Red Cell Distribution Width 21.4 H 21.5 H Platelet Count 378 396 Mean Platelet Volume 9.3 9.4 Immature Granulocytes % 1.900 H 2.200 H Neutrophils % 74.9 74.5 Lymphocytes % 12.4 L 11.4 L Monocytes % 8.2 9.0 Eosinophils % 2.3 2.6 Basophils % 0.3 0.3 Nucleated Red Blood Cells % 0.0 0.1 H Immature Granulocytes # 0.250 H 0.310 H Neutrophils # 9.6 H 10.6 H Lymphocytes # 1.6 1.6 Monocytes # 1.1 H 1.3 H Eosinophils # 0.3 0.4 Basophils # 0.0 0.0 Nucleated Red Blood Cells # 0.0 0.0 Subjective 24 Hr Interval Summary Free Text/Dictation Patient continues to request dermatology consultation. I have attempted to find a forensic psychologist but none are able to do an inpatient consult. I asked rheumatology to see him but they say psoriasis is not in their scope of practice Exam/Review of Systems Exam Vitals Vital Signs Date Temp Pulse Resp B/P (MAP) Pulse Ox O2 O2 Flow FiO2 Time Delivery Rate 04/03/19 113 18 99 Nasal 5.0 11:24 Cannula 04/03/19 98.3 143/83 08:01 (103) 04/01/19 30 10:05 Intake and Output 04/02/19 04/02/19 04/03/19 1414:59 22:59 06:59 IntakeIntake Total 3250 ml 2500 ml OutputOutput Total 1700 ml 1050 ml BalanceBalance 1550 ml 1450 ml Results Results 24hrs Laboratory Tests Test 04/03/19 01:09 04/03/19 08:26 White Blood Count 12.9 #H 14.2 H Red Blood Count 4.03 L 4.01 L Hemoglobin 9.6 L 9.6 L Hematocrit 34.7 L 34.6 L Mean Corpuscular Volume 86.1 86.3 Mean Corpuscular Hemoglobin 23.8 L 23.9 L Mean Corpuscular Hemoglobin Concent 27.7 L 27.7 L Red Cell Distribution Width 21.4 H 21.5 H Platelet Count 378 396 Mean Platelet Volume 9.3 9.4 Immature Granulocytes % 1.900 H 2.200 H Neutrophils % 74.9 74.5 Lymphocytes % 12.4 L 11.4 L Monocytes % 8.2 9.0 Eosinophils % 2.3 2.6 Basophils % 0.3 0.3 Nucleated Red Blood Cells % 0.0 0.1 H Immature Granulocytes # 0.250 H 0.310 H Neutrophils # 9.6 H 10.6 H Lymphocytes # 1.6 1.6 Monocytes # 1.1 H 1.3 H Eosinophils # 0.3 0.4 Basophils # 0.0 0.0 Nucleated Red Blood Cells # 0.0 0.0 Medications Medication Current Medications IV Flush (NS 3 ml) 3 ml PER PROTOCOL IV ; Start 03/12/19 at 22:30 Ondansetron HCl (Zofran Inj) 4 mg Q6H PRN IV NAUSEA/VOMITING; Start 03/12/19 at 22:30 Acetaminophen (Tylenol Tab) 650 mg Q6H PRN PO .PAIN 1-3 OR TEMP; Start 03/12/19 at 22:30 Enoxaparin Sodium (Lovenox) 40 mg DAILY SC Last administered on 04/03/19 09:47; Admin Dose 40 MG; Start 03/13/19 at 09:00 Albuterol/ Ipratropium (Duoneb) 3 ml Q2H RESP THERAPY PRN HHN SHORTNESS OF BR EATH Last administered on 04/03/19 11:23; Admin Dose 3 ML; Start 03/12/19 at 22:30 Mometasone Furoate (Asmanex) 1 puff BID INH Last administered on 04/03/19 09:13; Admin Dose 1 PUFF; Start 03/13/19 at 09:00 Atorvastatin Calcium (Lipitor) 40 mg QHS PO Last administered on 04/02/19 20:32; Admin Dose 40 MG; Start 03/13/19 at 21:00 Folic Acid (Folic Acid) 1 mg DAILY PO Last administered on 04/03/19 09:07; Admin Dose 1 MG; Start 03/13/19 at 09:00 Losartan Potassium (Cozaar) 50 mg DAILY PO Last administered on 04/03/19 09:07; Admin Dose 50 MG; Start 03/13/19 at 09:00 Miscellaneous Information Patients own medicat... BID@10,16 XX Last administered on 03/18/19 16:27; Admin Dose 1 EA; Start 03/14/19 at 10:00 Diphenhydramine HCl (Benadryl) 25 mg Q6H PRN PO ITCHING Last administered on 04/02/19 05:32; Admin Dose 25 MG; Start 03/15/19 at 03:30 Non-Formulary Medication 1 ea TID TOP Last administered on 04/02/19 20:39; Admin Dose 1 EA; Start 03/15/19 at 21:00 Guaifenesin (Robitussin Liquid Cup) 100 mg Q4H PRN PO COUGH Last administered on 03/18/19 05:45; Admin Dose 100 MG; Start 03/17/19 at 19:30 Nystatin (Nystatin Powder) 1 applic BID TOP Last administered on 04/03/19 14:21; Admin Dose 1 APPLIC; Start 03/18/19 at 13:30 Clobetasol Propionate (Temovate 0.05% Oint) 1 applic BID TOP Last administered on 04/03/19 14:21; Admin Dose 1 APPLIC; Start 03/23/19 at 21:00 Tramadol HCl (Ultram) 100 mg Q6H PRN PO MODERATE PAIN LEVEL 4-6 Last administered on 04/03/19 09:08; Admin Dose 100 MG; Start 03/24/19 at 12:30 Sodium Hypochlorite (Dakins Diluted (40)) 1 applic DAILY TP Last administered on 04/03/19 14:22; Admin Dose 1 APPLIC; Start 03/25/19 at 16:30 Calamine (Calamine Lotion) 1 applic BID PRN TOP ITCHING; Start 03/26/19 at 16:00 Vancomycin HCl (Vanco Iv Per Pharmacy) VANCOMYCIN PER PHARMACY PER PROTOCOL XX ; Start 03/27/19 at 17:00 Morphine Sulfate (morphine) 2 mg DAILY PRN IV SEVERE PAIN LEVEL 7-10 Last administered on 04/03/19 01:25; Admin Dose 2 MG; Start 03/27/19 at 17:00 Furosemide (Lasix) 20 mg DAILY IV Last administered on 04/03/19 09:08; Admin Dose 20 MG; Start 03/31/19 at 09:00 Vancomycin HCl 1.5 gm/Sodium Chloride 250 ml @ 83.333 mls/ hr Q8H IVPB Last ad ministered on 04/03/19 09:10; Admin Dose 83.333 MLS/HR; Start 04/02/19 at 18:00 Miscellaneous Information (*Rx Drug Level Order Reminder*) VANCO TR LEVEL PRIOR... 1700 ONCE XX ; Start 04/03/19 at 17:00; Stop 04/03/19 at 17:01 STEVEN MCNEAL MD April 03, 2019 15:12
[2019-04-03 16:37] VITALS: BP 132/71; PULSE 111; RESP 18
[2019-04-03] MEDS ORDERED: METHOTREXATE 2.5 MG TAB PO SCH ×3 (19:30→22:30)
[2019-04-03 20:00] VITALS: BP 138/69; PULSE 71; RESP 20
[2019-04-03] MEDS: DIPHENHYDRAMINE 25 MG CAP PO PRN (20:28)
[2019-04-03] MEDS: ATORVASTATIN 40 MG TAB PO SCH (21:13)
[2019-04-03] MEDS: KETOROLAC 15 MG INJ IV PRN (21:28)
[2019-04-04] VITALS: BP_SYST 135; BP_SYST 138; BP_DIAS 60; BP_DIAS 69; PULSE 109; PULSE 71; RESP 20
[2019-04-04] MEDS: ALBUTEROL/IPRATROPIUM (NEB) 3 ML AMP HHN PRN (01:59)
[2019-04-04] MEDS: DIPHENHYDRAMINE 25 MG CAP PO PRN (03:30)
[2019-04-04] MEDS: morphine 2 MG INJ IV PRN (03:31)
[2019-04-04] MEDS ORDERED: VANCOMYCIN HCL 1.5 GM in SOD CHLORIDE 0.9% 250 ML IVPB SCH (05:00)
[2019-04-04] MEDS: KETOROLAC 15 MG INJ IV PRN ×2 (06:39→15:26)
[2019-04-04 08:19] VITALS: BP 133/62; PULSE 116; RESP 18
[2019-04-04] MEDS: FOLIC ACID 1 MG TAB PO SCH (08:23)
[2019-04-04] MEDS: TRIAMCINOLONE ACET 0.025% 15 GM OINT TOP SCH ×3 (08:23→13:00)
[2019-04-04] MEDS: LOSARTAN 50 MG TAB PO SCH (08:23)
[2019-04-04] MEDS: FUROSEMIDE 20 MG INJ IV SCH (08:23)
[2019-04-04] MEDS: CLOBETASOL 0.05% 15 GM OINT TOP SCH (08:24)
[2019-04-04] MEDS: NYSTATIN 30 GM POWDER BTL TOP SCH (08:25)
[2019-04-04] MEDS: MOMETASONE 0.24 GM INHALER INH SCH (08:27)
[2019-04-04] MEDS: DAKINS 0.0125%(1/40) 473 ML SOLUTION TP SCH (08:30)
[2019-04-04] MEDS: ENOXAPARIN 40 MG/0.4 ML SYG SC SCH (08:46)
[2019-04-04 12:27] VITALS: BP 162/91; PULSE 125; RESP 18
--- NOTE | 2019-04-04 15:25 | DS ---
Date/Time of Note Date/Time of Note DATE: 04/04/19 TIME: 15:23 Discharge Summary Admission/Discharge Info Admit Date/Time Mar 12, 2019 at 18:53 Discharge Date/Time Discharge Diagnosis Hypercapneic respiratoyr failure Psoriasis Obesity Diastolic CHF Patient Condition: Stable Hospital Course Found to have acute on chronic hypercapneic and hypoxic respiratoyr failure. This was secondary to OHS and mild CHF. He was treated with BIPAP and given lasix for diuresis. He also has diffuse psoriasis and this was treated wiht prednisone course as well as weekly methotrexate (should be continued weekly). He was also treated wt vancomycin for a LE cellulitis. He was extenisvely counseled on weight loss and need to continue NIPPV chronically Home Meds Active Scripts Furosemide* (Lasix*) 20 Mg Tablet, 20 MG PO DAILY, #60 TAB Prov:TAMRA JOHNSON 03/24/19 Tramadol HCl (Tramadol HCl) 50 Mg Tablet, 100 MG PO Q6H PRN for MODERATE PAIN LEVEL 4-6, #30 TAB Prov:TAMRA JOHNSON 03/24/19 Reported Medications Triamcinolone Acetonide* (Kenalog*) 0.025%-15GM Oint, 1 APPLIC TOP TID, #1 EA 03/12/19 Prednisone* (Prednisone*) 20 Mg Tab, 20 MG PO BID, TAB 03/12/19 Methotrexate* (Methotrexate*) 2.5 Mg Tab, 27.5 MG PO for 7 Days, TAB 03/12/19 Metformin* (Glucophage*) 1,000 Mg Tablet, 1000 MG PO DAILY, #30 TAB 03/12/19 Losartan Potassium* (Losartan Potassium*) 50 Mg Tablet, 50 MG PO DAILY, TAB 03/12/19 Folic Acid* (Folic Acid*) 1 Mg Tablet, 1 MG PO DAILY, TAB 03/12/19 Cyanocobalamin/FA/Pyridoxine (Folbee Tablet) 1 Each Tablet, 1 EACH PO DAILY, TAB 03/12/19 Atorvastatin* (Atorvastatin*) 40 Mg Tablet, 40 MG PO QHS, #30 TAB 03/12/19 Albuterol Sulfate* (Ventolin HFA*) 18 Gm Hfa.aer.ad, 1 PUFF INHALATION Q4H for dyspnea, #1 INHALER 03/12/19 Acetazolamide* (Acetazolamide* ER) 500 Mg Capsule.er, 500 MG PO TID, #60 CAP 03/12/19 Methotrexate* (Methotrexate*) Unknown Strength Tab, PO, TAB 10/15/17 Primary Care Provider Not On Staff Doctor Pending Labs Laboratory Tests Test 04/03/19 16:00 04/03/19 17:19 04/04/19 07:53 Blood Gas Specimen Blood arterial Source Arterial Blood Date 04/03/2019 4:05:37 PM Drawn Arterial Blood pH 7.329 (7.350-7.450) (Temp corrected) Arterial Blood pCO2 77.0 mmhg (35-45) (Temp correct) Arterial Blood pO2 105.9 (Temp corrected) mmHG (80-100.0) Arterial Blood 39.6 HCO3 mmol/L (22.0-26.0) Arterial Blood Base 11.1 Excess mmol/L (-3.0-3) Arterial Blood 97.0 Oxygen Saturation mmHG (95.0-98.0) Danyel Test ACCEPTAB Arterial Blood Gas Left Radial Puncture Site Arterial 0.6 % (0.0-3.0) Blood Carboxyhemogl obin Arterial Blood 0.3 % (0.0-1.5) Methemoglobin Blood Gas A-a O2 61.5 Differential mmHg (7.0-24.0) Oxyhemoglobin 96.1 % (93.0-99.0) Percent Blood Gas 37.0 C Temperature Blood Gas Modality NASAL CANNULA FiO2 36.0 % Blood Gas Notified CW Whom Blood Gas Notified 04/03/2019 4:35:37 PM Time Vancomycin Level 7.9 Trough ug/ml (10.0-20.0) Blood Urea 19 mg/dl (7-20) Nitrogen Creatinine 0.62 mg/dl (0.61-1.24) STEVEN MCNEAL MD April 04, 2019 15:25
== END 2019-04-04 16:30 | DRG 166 ==
LOC: E/R 17:30 → TEL 18:53 → EDBEDREQ 19:45
PROVIDERS: ADMIT Internal Medicine; ATTEND Internal Medicine
PROC: 5A09457 Assistance with Respiratory Ventilation, 24-96 Consecutive Hours, Continuous Positive Airway Pressure (ICD-10-PCS; principal; 2019-03-13)
PROC: 0JBR0ZZ Excision of Left Foot Subcutaneous Tissue and Fascia, Open Approach (ICD-10-PCS; 2019-03-24)
PROC: 0HBRXZZ Excision of Toe Nail, External Approach (ICD-10-PCS; 2019-03-24)
DX: E66.2 Morbid (severe) obesity with alveolar hypoventilation (principal); I50.31 Acute diastolic (congestive) heart failure; J96.22 Acute and chronic respiratory failure with hypercapnia; J96.21 Acute and chronic respiratory failure with hypoxia; Z68.44 Body mass index [BMI] 60.0-69.9, adult; J44.0 Chronic obstructive pulmonary disease with (acute) lower respiratory infection; L97.321 Non-pressure chronic ulcer of left ankle limited to breakdown of skin; L03.116 Cellulitis of left lower limb; I87.2 Venous insufficiency (chronic) (peripheral); I89.0 Lymphedema, not elsewhere classified; L40.9 Psoriasis, unspecified; D64.9 Anemia, unspecified; J20.9 Acute bronchitis, unspecified; I11.0 Hypertensive heart disease with heart failure; B95.62 Methicillin resistant Staphylococcus aureus infection as the cause of diseases classified elsewhere; B95.2 Enterococcus as the cause of diseases classified elsewhere; B96.89 Other specified bacterial agents as the cause of diseases classified elsewhere; Z71.3 Dietary counseling and surveillance; Z79.84 Long term (current) use of oral hypoglycemic drugs; Z79.52 Long term (current) use of systemic steroids; Z79.899 Other long term (current) drug therapy
CPT/HCPCS: 36415; 36600; 71045; 73610; 73630; 80048; 80053; 80061; 80202; 81003; 82565; 82803; 83735; 83880; 84100; 84484; 84520; 85025; 87070; 93005; 93306; 93923; 94640; 94660; 94664; 94760; 97110; 97116; 97162; 97164; 97530; C9113; J1200; J1650; J1885; J1940; J1956; J2270; J3370; J3475; J7040; J7050; J7512